=== PATIENT | female | born 1960 | race Caucasian/White ===

== ENCOUNTER 2017-08-11 13:17 | Inpatient (IN) | payer MEDICAID, SELFPAY ==
[2017-08-11] VITALS (7 sets, daily range): BP systolic 126–158; BP diastolic 72–142; PULSE 88–115; RESP 16–20; TEMP 35.6–36.9; O2SAT 92–93; BMI 20.7
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
[2017-08-11 13:41] LABS: Absolute Lymphocyte Count 2.29 X10^3/ul (0.83-4.51); Absolute Neutrophil Count 4.6 X10^3/uL (2.0-7.7); Basophil# 0.07 X10^3/uL; Basophil% 0.9 % (0-1); Eosinophil# 0.05 X10^3/uL; Eosinophils% 0.6 % (0-5); Hematocrit 37.6 % (37-47); Lymphocyte # 2.29 X10^3/ul (4.0); Lymphocyte % 28.1 % (19-41); Mean Corp Hgb Conc 34.6 g/gl (32-36); Mean Corpuscular Volume 86.6 fL (81-99); Mean Platelet Vol. 8.9 fl (6.2-12.0); Monocyte# 1.12 X10^3/uL; Monocyte% 13.8 % (0-10); Neutrophil # 4.59 X10^3/uL (2.7-7.7); Neutrophil % 56.4 % (47-70); Platelet Count 211 K/mm3 (150-450); RBC Distribution Width CV 13.6 % (11.6-14.6); RBC Distribution Width SD 42.5 fl (35.1-43.9); Red Blood Count 4.34 M/mm3 (4.2-5.4); White Blood Count 8.1 K/mm3 (4.4-11.0)
[2017-08-11 13:50] LABS: AST(SGOT) 144 U/L (15-37); Alanine Aminotransfer ALT/SGPT 62 U/L (13-56); Albumin, Serum 4.2 g/dL (3.2-5.0); Alkaline Phosphatase 98 U/L (45-117); Anion Gap 19 (5-15); BUN 16 mg/dL (7-18); Bilirubin, Direct 0.17 mg/dL (0.00-0.30); Calcium,Total 8.7 mg/dL (8.5-10.1); Chloride 95 mmol/L (98-107); EST Glomerular Filtration Rate 61 mL/min (>60); Est Glom Filt Rate - Afr Amer 74 mL/min (>60); Estimated Creatinine Clearance 54.89 ml/min; Globulin 4.5 g/dL (2.2-4.2); Glucose 59 mg/dL (70-110); Potassium 3.9 mmol/L (3.5-5.1); Protein, Total 8.7 g/dL (6.4-8.2); Sodium Level 135 mmol/L (136-145)
[2017-08-11 13:53] LABS: POSITIVE COUNT NO; POSITIVE DIFFERENTIAL NO; POSITIVE MORPHOLOGY NO
--- NOTE | 2017-08-11 14:09 | ED.RN ---
etoh [address] called from the lab. dr ball aware
--- NOTE | 2017-08-11 15:11 | ED.DEP ---
ED Disposition - Plan for ED Patient: Disposition: Home or Assisted Living Chief Complaint: ETOH Intox Instructions: ED Alcohol Intoxication Referrals: Kellie Delarosa DO [Primary Care Provider] - As Needed Additional Instructions: Plenty of fluids and rest. Need to strongly consider decreasing alcohol use and going through alcohol rehabilitation.
--- NOTE | 2017-08-11 18:11 | ED.RN ---
CONTINUES TO SLEEP. PT AMBULATED TO BATHROOM AND IS CURRENTLY SLEEPING.
--- NOTE | 2017-08-11 21:02 | HP.PCM_ITS ---
Problem List (1) ETOH abuse Status: Acute (2) Elevated ETOH level Status: Acute (3) Hepatotoxicity, secondary to ETOH Status: Acute History of Present Illness Date of Admission: 08/11/17 Chief Complaint: EtOH intoxication The patient is a 56 year old female w/ h/o EtOH abuse admitted for EtOH intoxication. She is a poor historian. She has been drinking for the past weeks. She spends most of her days drunk. She does not know why. She is tearful. She wants to stop drinking but cannot stop herself. Past Medical History Allergies Penicillins Allergy (Verified 06/08/17 19:00) Unknown Home Medications: Ambulatory Orders Medication Instructions Recorded Hydroxyzine HCl 50 mg PO BID PRN PRN 08/11/17 Smoking Status: Current every day smoker Review of Systems Constitutional: Denies: Chills, Fever, Weight Change HEENT: Denies: Head Aches, Sinus Congestion, Sinus Drainage Cardiovascular: Denies: Chest Pain, Palpitations Respiratory: Denies: Cough, Shortness of breath at rest, Sputum production Gastrointestinal: Denies: Abdominal Pain, Nausea, Vomiting Genitourinary: Denies: Dysuria Musculoskeletal: Denies: Joint Pain, Joint Tenderness Skin: Denies: Rash, Wounds Neurological: Denies: Numbness, Tingling, Focal weakness Psychiatric: Denies: Anxiety, Depression, Homicidal Ideations, Suicidal Ideations Hematologic/ Lymphatic: Denies: Easy Bruising, Easy Bleeding VTE Information - Inpt Only VTE Present on Admission: No VTE Mechan Device Prophylaxis: SCD's VTE Pharm Prophylaxis ordered?: Yes Patient Problems: Active and Suspected Problems ETOH abuse (Acute) Elevated ETOH level (Acute) Hepatotoxicity, secondary to ETOH (Acute) - Physical Exam General: Alert, Oriented x3, Cooperative HEENT: Atraumatic, PERRLA, EOMI, Normocephalic Neck: Supple, No JVD, Negative Carotid Bruits Lungs: Clear to auscultation, Normal air movement Cardiovascular: Regular rate, No murmurs Abdomen: Bowel Sounds Present, Soft, Non Tender Extremities: No edema, Capillary Refill Less than 3 Seconds Skin: No rashes, No breakdown Musculoskeletal: No Tenderness to Palpation of Joints or Extremities Neurological: Cranial nerves II-XII grossly intact Psych/Mental Status: Normal Affect, Appropriate Vital Signs Temp Pulse Resp BP Pulse Ox 96.0 F L 94 20 H 126/78 H 93 08/11/17 20:37 08/11/17 20:37 08/11/17 20:37 08/11/17 20:37 08/11/17 20:37 Oxygen Delivery Method Room Air Weight: 54.7 kg Body Mass Index (BMI) 20.7 Laboratory Tests Past 24 Hrs 08/11/17 08/11/17 08/11/17 13:20 13:20 13:20 WBC 8.1 RBC 4.34 Hgb 13.0 Hct 37.6 MCV 86.6 MCH 30.0 MCHC 34.6 RDW 13.6 RDW Differential 42.5 Plt Count 211 MPV 8.9 Immature Gran % (Auto) 0.200 Neut % (Auto) 56.4 Lymph % (Auto) 28.1 [place] % (Auto) 13.8 H Eos % (Auto) 0.6 Baso % (Auto) 0.9 Absolute Neuts (auto) 4.6 Absolute Lymphs (auto) 2.29 Total Counted Not Reportable Sodium 135 L Potassium 3.9 Chloride 95 L Carbon Dioxide 21.0 Anion Gap 19 H BUN 16 Creatinine 1.00 Estim Creat Clear Calc 54.89 Est GFR (MDRD) Af Amer 74 Est GFR (MDRD) Non-Af 61 BUN/Creatinine Ratio 16.0 Glucose 59 L Calcium 8.7 Total Bilirubin 0.40 Direct Bilirubin 0.17 AST 144 H ALT 62 H Alkaline Phosphatase 98 Total Protein 8.7 H Albumin 4.2 Globulin 4.5 H Ethyl Alcohol 414.0 H* Assessment/Plan Active and Suspected Problems ETOH abuse (Acute) Elevated ETOH level (Acute) Hepatotoxicity, secondary to ETOH (Acute) 56 year old female w/ h/o EtOH abuse admitted for EtOH intoxication. 1) EtOH abuse / intoxication: Will start CIWA. Will also start MVI. Will hydrate. Will consult [facility]. 2) Transaminitis: secondary to EtOH. Will repeat level in AM. Supportive care. 3) Hypovolemia: Most likely secondary to EtOH. Hydration. 4) Prophylaxis: Heparin.
[2017-08-11] MEDS: 0.9% Normal Saline 1,000 ML 999 ML IV ×2 (21:45→22:56)
[2017-08-11] MEDS: Ondansetron 4 MG/2 ML Vial IV (22:32)
[2017-08-11] MEDS: LORazepam 2 MG/ML Syringe IV (22:55)
[2017-08-11] MEDS: Ibuprofen 600 MG Tablet PO (23:04)
[2017-08-12] VITALS (14 sets, daily range): BP systolic 109–162; BP diastolic 61–99; PULSE 89–110; RESP 18–20; TEMP 36.7–37.5; O2SAT 92–99
[2017-08-12] MEDS: 0.9% Normal Saline 1,000 ML 125 ML IV ×3 (00:17→16:49)
--- NOTE | 2017-08-12 00:36 | NURSING ---
This nurse asking patient if her family knows she is in the hospital. Pt appears upset and wants to know why I am asking. Explained reasons for notifying family, and pt refuses at this time.
[2017-08-12 00:38] LABS: Amphetamine Urine VISTA NEGATIVE (<1000 ng/mL); Barbiturate Urine VISTA NEGATIVE (< 200 ng/mL); Benzodiazepine Urine VISTA NEGATIVE (< 200 ng/mL); Cocaine Urine VISTA NEGATIVE (< 300 ng/mL); Ecstacy Urine VISTA NEGATIVE (< 500 ng/mL); Methadone Urine VISTA NEGATIVE (< 300 ng/mL); PCP Urine VISTA NEGATIVE (< 25 ng/mL); THC Urine VISTA NEGATIVE (< 50 ng/mL); Vista UDS pH Range 5
[2017-08-12] MEDS: NYSTATIN 500,000 UNIT/5 ML UDC 500000 UNIT PO ×5 (02:44→20:21)
[2017-08-12] MEDS: LORazepam 1 MG Tablet 2 MG PO ×4 (02:47→20:21)
--- NOTE | 2017-08-12 07:00 | NURSING ---
Janee Andrews from [facility] was called 08/12/17 43 about consult for patient for ETOH detox. Janee Andrews said they would be in contact with patient.
[2017-08-12 07:14] LABS: Absolute Lymphocyte Count 2.39 X10^3/ul (0.83-4.51); Absolute Neutrophil Count 2.9 X10^3/uL (2.0-7.7); Basophil# 0.01 X10^3/uL; Basophil% 0.2 % (0-1); Eosinophil# 0.07 X10^3/uL; Eosinophils% 1.2 % (0-5); Hemoglobin 9.7 g/dl (12.0-15.0); Lymphocyte # 2.39 X10^3/ul (4.0); Mean Corp Hgb Conc 33.4 g/gl (32-36); Mean Corpuscular Hgb 29.4 pg (27.0-32.0); Mean Corpuscular Volume 87.9 fL (81-99); Mean Platelet Vol. 8.8 fl (6.2-12.0); Monocyte# 0.63 X10^3/uL; Monocyte% 10.6 % (0-10); Neutrophil # 2.86 X10^3/uL (2.7-7.7); Neutrophil % 47.8 % (47-70); Platelet Count 164 K/mm3 (150-450); RBC Distribution Width SD 45.2 fl (35.1-43.9)
[2017-08-12 07:16] LABS: POSITIVE COUNT NO; POSITIVE DIFFERENTIAL NO; POSITIVE MORPHOLOGY NO
[2017-08-12 07:38] LABS: ALB/GLOB Ratio 0.9 RATIO (0.9-2.4); AST(SGOT) 73 U/L (15-37); Alanine Aminotransfer ALT/SGPT 39 U/L (13-56); Albumin, Serum 2.9 g/dL (3.2-5.0); Alkaline Phosphatase 72 U/L (45-117); Anion Gap 12 (5-15); BUN 14 mg/dL (7-18); BUN/Creat Ratio 19.5 RATIO (10-20); Calcium,Total 7.4 mg/dL (8.5-10.1); Chloride 102 mmol/L (98-107); Creatinine, Serum 0.72 mg/dL (0.55-1.02); EST Glomerular Filtration Rate 89 mL/min (>60); Est Glom Filt Rate - Afr Amer 108 mL/min (>60); Estimated Creatinine Clearance 76.24 ml/min; Globulin 3.3 g/dL (2.2-4.2); Glucose 76 mg/dL (74-106); Magnesium 1.9 mg/dL (1.6-2.6); Potassium 4.2 mmol/L (3.5-5.1); Protein, Total 6.2 g/dL (6.4-8.2); Sodium Level 139 mmol/L (136-145)
[2017-08-12] MEDS: Folic Acid 1 MG Tablet PO (08:32)
[2017-08-12] MEDS: Ibuprofen 600 MG Tablet PO (08:32)
[2017-08-12] MEDS: Thiamine Hydrochloride 100 MG Tablet PO ×2 (08:32→16:51)
[2017-08-12] MEDS: Multivitamins,Ther W-Minerals Tablet 1 TABLET PO (08:33)
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
[2017-08-12] MEDS: 0.9% NaCl Peripheral Flush Adult/Peds IV ×2 (15:07→17:06)
[2017-08-12] MEDS: LORazepam 2 MG/ML Syringe IV (15:07)
[2017-08-12] MEDS: Ondansetron 4 MG/2 ML Vial IV (17:06)
[2017-08-13] VITALS (10 sets, daily range): BP systolic 124–166; BP diastolic 81–111; PULSE 74–118; RESP 12–20; TEMP 36.5–36.9; O2SAT 94–97
[2017-08-13] MEDS: LORazepam 1 MG Tablet 2 MG PO (00:06)
[2017-08-13] MEDS: Ibuprofen 600 MG Tablet PO ×2 (00:06→17:47)
[2017-08-13] MEDS: Mirtazapine 15 MG Tablet PO ×2 (01:41→23:55)
[2017-08-13] MEDS: Enoxaparin 40 MG/0.4 ML Syringe SC (05:24)
[2017-08-13 06:12] LABS: Hematocrit 32.5 % (37-47)
--- NOTE | 2017-08-13 08:58 | NURSING ---
Pt is sleeping. No distress. Room Camera and bed exit maintained.
[2017-08-13] MEDS: Folic Acid 1 MG Tablet PO (09:53)
[2017-08-13] MEDS: Multivitamins,Ther W-Minerals Tablet 1 TABLET PO (09:54)
[2017-08-13] MEDS: NYSTATIN 500,000 UNIT/5 ML UDC 500000 UNIT PO ×3 (09:54→23:55)
[2017-08-13] MEDS: Thiamine Hydrochloride 100 MG Tablet PO ×2 (09:54→17:39)
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
[2017-08-13] MEDS: LORazepam 2 MG/ML Syringe IV ×3 (12:58→20:21)
[2017-08-13] MEDS: Ondansetron 4 MG/2 ML Vial IV (12:59)
[2017-08-13] MEDS: 0.9% NaCl Peripheral Flush Adult/Peds IV ×3 (12:59→20:21)
--- NOTE | 2017-08-13 17:45 | NURSING ---
Pt is extremely anxious at this time. Crying. She asked to go see her daughter that is upstairs. This nurse told her it is not a good idea to go visit her right now. CIWA score is 20. BP is high as is HR. Will give Ativan.
[2017-08-14 06:19] VITALS: BP 124/86; PULSE 87; RESP 16; TEMP 36.6; O2SAT 92
[2017-08-14] MEDS: Ibuprofen 600 MG Tablet PO (06:25)
[2017-08-14] MEDS: Enoxaparin 40 MG/0.4 ML Syringe SC (06:26)
[2017-08-14] MEDS: LORazepam 1 MG Tablet 2 MG PO (06:32)
[2017-08-14 07:27] VITALS: O2SAT 96
[2017-08-14 08:16] VITALS: BP 158/100; PULSE 104; RESP 18; TEMP 36.7; O2SAT 96
[2017-08-14] MEDS: Multivitamins,Ther W-Minerals Tablet 1 TABLET PO (08:25)
[2017-08-14] MEDS: Folic Acid 1 MG Tablet PO (08:25)
[2017-08-14] MEDS: Thiamine Hydrochloride 100 MG Tablet PO (08:25)
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
--- NOTE | 2017-08-14 10:18 | CASEMGMT ---
Social Work Note According to Thomas CADENA Amy from [facility] saw and the pt is being established with inpatient rehab for alcohol abuse. No further needs identified. Will follow and assist as needed. Kirsten Narvaez, APPLIANCE ASSEMBLER, TOOL AND DIE MACHINIST
--- NOTE | 2017-08-14 10:33 | PCM.DC ---
- Discharge Diagnoses Current Active Problems: Current Active and Chronic Problems ETOH abuse (Acute) Elevated ETOH level (Acute) Hepatotoxicity, secondary to ETOH (Acute) You will use the following diet at home:: Regular Your food should be the consistency of: Regular Discharge Activity: Return to Normal Activity Weight Bearing Status: Weight bearing as tolerated Call your doctor if you observe: Fever of 101 or Higher, Shortness of breath, Dizziness, Fainting spells, Chest pain, Increased palpitations (irregular heartbeat), Uncontrolled pain Instructions: ED Alcohol Intoxication Allergies/Adverse Reactions: Allergies Penicillins Allergy (Verified 06/08/17 19:00) Unknown Medications to take at Discharge Hydroxyzine HCl 50 mg PO BID PRN PRN 08/11/17 Mirtazapine 15 mg PO QHS PRN 08/12/17 Folic Acid 0.4 mg PO DAILY@0800 #30 tab 08/14/17 Lorazepam [Ativan] 0.5 mg PO BID PRN PRN #20 tab 08/14/17 Multivitamins,Ther W-Minerals [Multivitamin With Minerals] 1 tab PO DAILYCM #30 tab 08/14/17 Thiamine Hydrochloride [Vitamin B1] 100 mg PO DAILY #30 tab 08/14/17 The following prescriptions were given: Folic Acid 0.4 mg PO DAILY@0800 #30 tab Lorazepam [Ativan] 0.5 mg PO BID PRN PRN #20 tab PRN Reason: Anxiety/Agitation Multivitamins,Ther W-Minerals [Multivitamin With Minerals] 1 tab PO DAILYCM #30 tab Thiamine Hydrochloride [Vitamin B1] 100 mg PO DAILY #30 tab Primary Care Physician: Kellie Delarosa DO [Primary Care Provider] - As Needed Please follow up with your Primary Care Physician in: 1 week.
[2017-08-14 10:34] VITALS: PULSE 104; RESP 18; TEMP 36.7; O2SAT 96
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
== END 2017-08-14 10:45 | disposition home or self-care (01) | DRG 435 ==
LOC: ED 20:46 → MS2 21:17
PROVIDERS: Internal Medicine; Admitting Provider Internal Medicine; Emergency Provider Emergency Medicine; Family Provider Family Medicine; PCP Family Medicine; Visit Provider Hospitalist
DX: F10.239 Alcohol dependence with withdrawal, unspecified (principal); F10.229 Alcohol dependence with intoxication, unspecified; K70.10 Alcoholic hepatitis without ascites; Y90.8 Blood alcohol level of 240 mg/100 ml or more; F17.210 Nicotine dependence, cigarettes, uncomplicated; Z86.718 Personal history of other venous thrombosis and embolism; S50.12XA Contusion of left forearm, initial encounter; X58.XXXA Exposure to other specified factors, initial encounter; Z23 Encounter for immunization
CPT/HCPCS: 36415; 80048; 80053; 80076; 80307; 80320; 83735; 85014; 85018; 85025; 99283; 99406; J7030; 90686; A4216; G0480; J2405

== ENCOUNTER 2018-01-18 13:52 | Emergency (ER) | payer MEDICAID, SELFPAY ==
[2018-01-18 13:54] VITALS: BP 142/83; PULSE 102; RESP 15; TEMP 36.4; O2SAT 98; BMI 23.8
--- NOTE | 2018-01-18 16:10 | ED.RN ---
PT LEFT WITHOUT BEING SEEN AND [facility]ISION IS AWARE
== END 2018-01-18 16:13 | disposition left against medical advice (07) ==
LOC: ED 16:12
PROVIDERS: Emergency Provider Emergency Medicine; Family Provider Family Medicine; PCP Family Medicine
DX: F10.239 Alcohol dependence with withdrawal, unspecified (principal)

== ENCOUNTER 2018-01-18 22:10 | Emergency (ER) | payer MEDICAID, SELFPAY ==
[2018-01-18 22:13] VITALS: BP 170/104; PULSE 102; RESP 20; TEMP 36.6; O2SAT 96; BMI 22.1
[2018-01-19 02:15] VITALS: RESP 12
[2018-01-19 04:25] VITALS: BP 106/59; PULSE 84; RESP 18; O2SAT 98
--- NOTE | 2018-01-19 05:10 | ED.VISSUMM ---
- ER Visit Summary Date of Service: 01/19/18 Chief Complaint: Alcohol intoxication History of Present Illness: The patient is a 57 F who was brought to the ER by police for alcohol intoxication. She is an alcoholic. She states she drank a liter of vodka prior to coming in here today. The son called stating that he cannot care for her in her current state and she could not stay with him. The patient was arrested for the same last night and was in longterm overnight. After leaving she began to drink again. She has no specific complaints at this time. Physical Examination: Heart rate 102 blood pressure 170/104 vitals otherwise unremarkable Patient does appear clinically intoxicated. She is oriented to self age and place No focal or lateralizing neurological deficits Heart is regular rhythm slightly tachycardic Lungs are clear Abdomen soft Test Results: Not indicated Emergency Department Course and Treatment: Patient was brought by police because they felt that she was too intoxicated for longterm at the time and needed monitoring. I do not believe any medical workup is necessary. Patient was observed here in the emergency department. On re-eval and she was able to walk unassisted. She will be discharged in police custody. Treatment Plan: [] Disposition: Discharge Impression: Alcohol intoxication This note was generated with [employer] dictation software. It may contain incorrect words, spelling, and punctuation that were not noted in review of the chart prior to signing ED Disposition - Plan for ED Patient: Chief Complaint: ETOH Intox Referrals: Kellie Delarosa DO [Primary Care Provider] -
--- NOTE | 2018-01-19 05:12 | ED.DEP ---
ED Disposition - Plan for ED Patient: Chief Complaint: ETOH Intox Instructions: ED Alcohol Intoxication Referrals: Kellie Delarosa DO [Primary Care Provider] -
--- NOTE | 2018-01-19 05:13 | ED.DCSUM_ITS ---
- ER Visit Summary Date of Service: 01/19/18 Chief Complaint: Alcohol intoxication History of Present Illness: The patient is a 57 F who was brought to the ER by police for alcohol intoxication. She is an alcoholic. She states she drank a liter of vodka prior to coming in here today. The son called stating that he cannot care for her in her current state and she could not stay with him. The patient was arrested for the same last night and was in shelter overnight. After leaving she began to drink again. She has no specific complaints at this time. Physical Examination: Heart rate 102 blood pressure 170/104 vitals otherwise unremarkable Patient does appear clinically intoxicated. She is oriented to self age and place No focal or lateralizing neurological deficits Heart is regular rhythm slightly tachycardic Lungs are clear Abdomen soft Test Results: Not indicated Emergency Department Course and Treatment: Patient was brought by police because they felt that she was too intoxicated for shelter at the time and needed monitoring. I do not believe any medical workup is necessary. Patient was observed here in the emergency department. On re-eval and she was able to walk unassisted. She will be discharged in police custody. Treatment Plan: [] Disposition: Discharge Impression: Alcohol intoxication This note was generated with [employer] dictation software. It may contain incorrect words, spelling, and punctuation that were not noted in review of the chart prior to signing ED Disposition - Plan for ED Patient: Chief Complaint: ETOH Intox Referrals: Kellie Delarosa DO [Primary Care Provider] -
[2018-01-19 05:15] VITALS: BP 125/81; PULSE 71; RESP 14; O2SAT 100
== END 2018-01-19 05:15 | disposition home or self-care (01) ==
LOC: ED 23:58
PROVIDERS: Emergency Provider Emergency Medicine; Family Provider Family Medicine; PCP Family Medicine
DX: F10.129 Alcohol abuse with intoxication, unspecified (principal); Z72.0 Tobacco use
CPT/HCPCS: 99282

== ENCOUNTER → 2018-04-30 09:54 | Outpatient (CLI) | payer MEDICAID, SELFPAY ==
--- NOTE | 2018-04-30 | BRBX_PTH ---
PATIENT: ANISA PABLO LOC: [facility] U#:[id number] AGE/SX: 64/F ROOM: RE04/30/[address]: Dr. Mary Miranda MD : 1960 BED: DIS: SPEC #: [id number] RECD: 04/30/18 13:53 STATUS: BEATRIZ RAMONE #: [id number] KOKI: 04/30/18 00:[address]: Mary Miranda DEPT: SURGICAL PATHOLOGY RECD BY: Trenton Richardson ENTERED: 04/30/18 13:54 SP TYPE: BREAST BX OTHR DR: Dr. Kellie Delarosa DO Tissues: Right breast, NOS Procedures: Surgery Specimen Level IV HEADER OPERATION: Right breast stereotactic biopsy PRE-OP DIAGNOSIS: Microcalcifications UOQ TISSUE SUBMITTED: Right breast ISCHEMIC TIME: 3 minutes FIXATION TIME: 8.5 hours MICROSCOPIC DIAGNOSIS Right breast, upper outer quadrant, stereotactic core biopsy: Fibrocystic changes, adenosis and intraductal hyperplasia with focal atypia. Frequent microcalcifications. Negative for malignancy. ROGELIO:darin 05/01/18 COMMENT Correlation with clinical, radiologic findings and appropriate follow up are necessary. Case has been reviewed in consultation with Dr. Singleton who concurs with the above diagnosis. IDC:AM MICROSCOPIC DESCRIPTION Slides are reviewed. GROSS DESCRIPTION Received in fixative is one container labeled with the patient's name and designated right breast. The specimen consists of multiple elongated fragments of medina-yellow fibroadipose tissue that in aggregate measure 5 x 3 x 0.8 cm. The entire specimen is submitted in four cassettes. / ROGELIO:darin 04/30/18 TC:5 CPT: 87200
--- NOTE | 2018-04-30 11:37 | PCM.OP.BLANK ---
Operative Report Date of Procedure: 04/30/18 Procedure: Stereotactic core biopsy Indications: 57 year-old female with cluster of microcalcifications in the lateral/central of the left breast. Risk benefits were discussed the patient and she elected to proceed with stereotactic core biopsy with clip placement Description of procedure: Patient was brought into the mammography suite and laid prone on the stereotactic table. A timeout was completed verifying correct patient, procedure, site, specially, prior to beginning procedure. The left breast was prepped and draped in usual sterile fashion and using local anesthesia was obtained with 1% lidocaine. Patient's left breast was positioned and placed into compression. Initial film showed calcifications are in the center of the compression paddle. 15? views were then taken. The calcifications were localized. The left breast was prepped draped in usual sterile fashion. An 8-gauge mammotome was set up according to the digital coordinates. The tract of the mammotome was anesthetized with local anesthesia and an incision was made with the 11 blade scalpel at the entry site. The mammotome was advanced to the prefire state. Pre-prior films were checked and verified. The mammotome was fired. Post fire films were also checked and verified. Biopsies were taken from 12:00 to 11:00. The specimen was x-rayed and almost all the calcifications were within the specimen. Mammotome clip was placed at the 12 o'clock position. The mammotome was removed from the breast. An additional films were taken which showed all calcifications were removed and a clip was in place. Pressure was held for hemostasis. Once hemostasis was assured the wound was dressed with Steri-Strips and OpSite. The patient tolerated the procedure well and was discharged from the mammography suite good condition. complications: none
== END ==
PROVIDERS: Family Provider Family Medicine; PCP Family Medicine; Visit Provider Surgery
DX: N60.11 Diffuse cystic mastopathy of right breast (principal); N60.21 Fibroadenosis of right breast; N60.91 Unspecified benign mammary dysplasia of right breast; F41.9 Anxiety disorder, unspecified; F32.9 Major depressive disorder, single episode, unspecified; J44.9 Chronic obstructive pulmonary disease, unspecified; F17.200 Nicotine dependence, unspecified, uncomplicated; Z79.899 Other long term (current) drug therapy
CPT/HCPCS: 19081; 88305; J7050; A4648

== ENCOUNTER 2018-06-18 11:51 | Day surgery (SDC) | payer MEDICAID, SELFPAY ==
[2018-06-06 09:01] VITALS: BMI 20.7
--- NOTE | 2018-06-18 | BRBX_PTH ---
PATIENT: ANISA PABLO LOC: [facility] [place] U#:[id number] AGE/SX: 57/F ROOM: RE06/18/[address]: Dr. Mary Miranda MD : 1960 BED: DIS: 06/18/2018 SPEC #: [id number] RECD: 06/18/18 14:52 STATUS: KIMBERLYMichael REThien #: [id number] KOKI: 06/18/18 00:[address]: Mary Miranda DEPT: SURGICAL PATHOLOGY RECD BY: Trenton Richardson ENTERED: 06/18/18 14:52 SP TYPE: BREAST BX OTHR DR: Dr. Kellie Delarosa, DO Tissues: Right breast, NOS Procedures: Surgery Specimen Level V HEADER OPERATION: Right breast NL with excisional biopsy PRE-OP DIAGNOSIS: Right breast ADH TISSUE SUBMITTED: Right breast biopsy, long suture - lateral, short suture - superior at 1431 MICROSCOPIC DIAGNOSIS Right breast, needle localization and excisional biopsy: Fibrocystic changes, adenosis and intraductal hyperplasia with focal atypia. Focal microcalcifications. Focal changes consistent with previous biopsy site. Negative for malignancy. ROGELIO:darin 06/21/18 COMMENT Please make reference to previous specimen ([id number]) right breast, upper outer quadrant, stereotactic core biopsy with diagnosis of fibrocystic changes, adenosis and intraductal hyperplasia with focal atypia. Case has been reviewed in consultation with Dr. Singleton who concurs with the above diagnosis. IDC:AM MICROSCOPIC DESCRIPTION Slides are reviewed. GROSS DESCRIPTION Received in fixative is one container labeled with the patient's name and designated right breast with needle localization. The specimen is oriented as long suture - lateral and short suture - superior. The specimen consists of a piece of fibroadipose tissue with needle localization measuring 4 x 3 x 2 cm. The specimen is inked as follows: anterior margin - yellow, posterior margin - black, superior margin - blue, inferior margin - green, medial margin - red and lateral margin - orange. Serial sections reveal medina-yellow adipose cut surfaces mixed with medina-white fibrous area. No obvious mass lesion is identified. The entire specimen is submitted from medial to lateral margins in nine cassettes. Sections will be submitted after additional fixation. / ROGELIO:darin 06/19/18 TC:5 CPT: 74464
--- NOTE | 2018-06-18 11:58 | BI_ITS ---
SURGICAL BREAST SPECIMEN RADIOGRAPH CLINICAL: Document presence of tissue clip marker in biopsy specimen. FINDINGS: Specimen shows presence of tissue clip marker. Electronically Signed: Marty Cam MD at 14:45 EST Tel [phone], Service support , BI/Breast Biopsy Specimen
[2018-06-18 12:25] VITALS: BP 163/78; PULSE 92; RESP 16; TEMP 37.4; O2SAT 97; BMI 24.4
[2018-06-18] MEDS: Bupiv/Epi 0.5% Mpf 30 ML Vial (14:43)
--- NOTE | 2018-06-18 14:45 | OP.PCM_ITS ---
Report of Operation Date of Procedure: 06/18/18 Pre-Operative Diagnosis: Right breast atypical ductal hyperplasia Post-Operative Diagnosis: Same Surgery/Procedure Performed:: Right breast needle localization in radiology, excisional breast biopsy in OR transport truck driver: Fabienne Hodge Type of Anesthesia:: General/Supplemental Anesthesiologist: Guicho White Special Medications: Clindamycin 600 mg IV x1 Specimen's removed: Right breast lumpectomy Estimated Blood Loss (mL): < 10 cc Fluids Replaced: 400 cc Description of Procedure: Patient was brought to the mammography suite. Patient was placed prone on the stereotactic table. The previously placed clip was localized. Suhail needle localization wire was used and placed after skin was prepped and draped in usual sterile fashion. Local anesthesia 1% lidocaine was used at the skin. Initial localization studies were taken at 15 degree angles. Confirmation of target confirmed. Wire was gently advanced as the needle was withdrawn. Again additional localization studies were taken. Patient also underwent 2 view mammography. Patient was brought to the operating room placed supine on the operating table. A timeout was completed verifying correct patient, site, procedure, special, prior to beginning procedure. Localization studies were reviewed. General anesthesia was induced. The right breast were prepped draped in usual sterile fashion. Curvilinear incision was made with a 15 blade scalpel overlying the wire. Electrocautery was used to dissect following the wire in order to include normal tissue and the clip as well. Hemostasis was achieved. The right breast lumpectomy was sent for x-ray. The wire and clip were confirmed. The cavity was irrigated with sterile water. The space was closed with the interrupted 3-0 Vicryl. The incision was closed with subdermal sutures of 3-0 Vicryl interrupted. The skin was closed with a running suture of 4-0 Monocryl. Steri-Strips were placed along with a gauze and OpSite. Gauze fluffs were also placed. Patient was extubated. Patient tolerated procedure well and was taken to the postanesthesia care unit in stable condition. - Complications none
--- NOTE | 2018-06-18 14:49 | DCINST_ITS ---
Discharge Diet: Light diet - advance as tolerated Discharge Activity: May not drive while taking narcotic pain medications. May shower in (days): 1 Lifting Restrictions: no lifting > 10 lb on right x 1 week Call your doctor if your incision/area has: Continuous Slow Oozing, Sudden Increased Bleeding, Increased Pain/ Swelling, Increased Redness, Foul Smelling Discharge, Swelling at the incision site Call your doctor if you observe: Fever of 101 or Higher Remove Dressing in (days):: 2 Allergies/Adverse Reactions: Allergies Penicillins Allergy (Verified 05/15/18 10:31) Unknown Medications to take at Discharge Hydroxyzine HCl 50 mg PO BID PRN PRN 08/11/17 Lorazepam [Ativan] 0.5 mg PO BID PRN PRN #20 tab 08/14/17 albuterol sulfate 2.5 mg/3 mL (0.083 %) solution for nebulization 2.5 mg INHALATION Q4H PRN 04/04/18 loratadine 10 mg tablet 10 mg PO DAILY 04/04/18 omeprazole 20 mg capsule,delayed release 20 mg PO BID cap 04/04/18 Hydrochlorothiazide 12.5 mg PO DAILY 06/15/18 Ibuprofen 600 mg PO 4X/DAY 06/15/18 Sucralfate [Carafate] 1 gm PO 4X/DAY 06/15/18 Oxycodone HCl/Acetaminophen [Percocet 5/325] 1 tablet PO Q6H PRN PRN 2 Days #5 tablet 06/18/18 The following prescriptions were given: Oxycodone HCl/Acetaminophen [Percocet 5/325] 1 tablet PO Q6H PRN PRN 2 Days #5 tablet PRN Reason: Pain Primary Care Physician: Kellie Delarosa DO [Primary Care Provider] - Test Results: Test results from this visit will be discussed in further detail at your follow- up appointment, if applicable. Please Follow Up With: Mary Miranda MD - After 5:00 and on weekends call [phone] with any concerns When: Call the office for f/u appt in 2wks. Will call &contact with path results Proposed Discharge Date: 06/18/18
[2018-06-18 14:59] VITALS: BP 139/86; BP 163/78; PULSE 96; RESP 18; TEMP 36.7; O2SAT 97
[2018-06-18 15:15] VITALS: BP 157/88; BP 163/78; PULSE 88; RESP 16; O2SAT 94
[2018-06-18 15:30] VITALS: BP 151/91; BP 163/78; PULSE 88; RESP 16; TEMP 36.8; O2SAT 93
[2018-06-18 16:21] VITALS: BP 163/78; BP 166/90; PULSE 96; RESP 16; TEMP 36.9; O2SAT 94
== END 2018-06-18 16:25 | disposition home or self-care (01) ==
LOC: SDC 11:53 → AC 11:54
PROVIDERS: Family Provider Family Medicine; PCP Family Medicine; Referring Provider Surgery; Visit Provider Surgery
PROC: (CPT 19301; principal; 2018-06-18 13:15)
DX: N60.11 Diffuse cystic mastopathy of right breast (principal); N60.21 Fibroadenosis of right breast; N60.91 Unspecified benign mammary dysplasia of right breast; K21.9 Gastro-esophageal reflux disease without esophagitis; F41.9 Anxiety disorder, unspecified; F32.9 Major depressive disorder, single episode, unspecified; I10 Essential (primary) hypertension; J44.9 Chronic obstructive pulmonary disease, unspecified; F17.200 Nicotine dependence, unspecified, uncomplicated; Z79.51 Long term (current) use of inhaled steroids; Z79.899 Other long term (current) drug therapy
CPT/HCPCS: 19125; 19281; 76098; 88305; 88307; J7120; J2405; J3490

== ENCOUNTER 2018-07-16 11:54 | Inpatient (IN) | payer MEDICAID, SELFPAY ==
[2018-07-16] VITALS (7 sets, daily range): BP systolic 142–162; BP diastolic 85–119; PULSE 100–162; RESP 14–21; TEMP 36.2–38.2; O2SAT 93–100; BMI 22.1; BMI 22.9; BMI 22.2
[2018-07-16 12:30] LABS: Absolute Lymphocyte Count 0.97 X10^3/ul (0.83-4.51); Absolute Neutrophil Count 9.6 X10^3/uL (2.0-7.7); Hematocrit 37.3 % (37-47); Hemoglobin 12.1 g/dl (12.0-15.0); Lymphocyte # 0.97 X10^3/ul (4.0); Lymphocyte % 8.5 % (19-41); Mean Corp Hgb Conc 32.4 g/gl (32-36); Mean Corpuscular Hgb 29.5 pg (27.0-32.0); Mean Platelet Vol. 9.2 fl (6.2-12.0); Monocyte# 0.78 X10^3/uL; Monocyte% 6.8 % (0-10); Neutrophil # 9.62 X10^3/uL (2.7-7.7); Neutrophil % 84.3 % (47-70); POSITIVE COUNT NO; POSITIVE DIFFERENTIAL NO; POSITIVE MORPHOLOGY NO; Platelet Count 277 K/mm3 (150-450); RBC Distribution Width CV 15.9 % (11.6-14.6); White Blood Count 11.4 K/mm3 (4.4-11.0)
[2018-07-16 12:42] LABS: Anion Gap 43 (5-15); BUN 38 mg/dL (7-18); BUN/Creat Ratio 13.6 RATIO (10-20); Calcium,Total 8.8 mg/dL (8.5-10.1); Chloride 79 mmol/L (98-107); Creatinine, Serum 2.79 mg/dL (0.55-1.02); EST Glomerular Filtration Rate 19 mL/min (>60); Est Glom Filt Rate - Afr Amer 23 mL/min (>60); Estimated Creatinine Clearance 19.44 ml/min; Glucose 135 mg/dL (74-106); Potassium 3.9 mmol/L (3.5-5.1); Sodium Level 132 mmol/L (136-145)
[2018-07-16] MEDS: Ondansetron 4 MG/2 ML Vial IV (13:08)
[2018-07-16] MEDS: 0.9% Normal Saline 1,000 ML 999 ML IV ×2 (13:08→13:47)
[2018-07-16 13:38] LABS: Lipase 298 U/L (73-393)
[2018-07-16 13:52] LABS: Alcohol, Blood (Medical)-Serum < 3.0 mg/dL
[2018-07-16 13:55] LABS: AST(SGOT) 138 U/L (15-37); Alanine Aminotransfer ALT/SGPT 136 U/L (13-56); Albumin, Serum 4.5 g/dL (3.2-5.0); Alkaline Phosphatase 92 U/L (45-117); Bilirubin, Direct 0.32 mg/dL (0.00-0.30); Protein, Total 8.5 g/dL (6.4-8.2)
--- NOTE | 2018-07-16 14:39 | ED.VISSUMM ---
- ER Visit Summary Date of Service: 07/16/18 Chief Complaint: Dehydrated History of Present Illness: The patient is a 57 F with complaints of dehydration. The patient has been unable to drink anything since yesterday. She has had nausea and vomiting. She normally drinks alcohol, 1/5 a day. Her last use was yesterday at 3 PM. She has had nausea and vomiting since then. She also has a history of COPD, bipolar disorder, depression, anxiety. Patient denies abdominal pain, chest pain, shortness of breath. Denies fevers. Denies urinary symptoms. Physical Examination: Hypertensive, tachycardic and tachypneic. Afebrile. Alert and oriented. Appears uncomfortable. No acute distress. Dry mucous membranes. Heart tachycardic but regular. Lungs clear. Abdomen soft and nontender. Skin is dry. Test Results: White count 11.4. Sodium 132, chloride 79, CO2 10, anion gap 43, glucose 135, BUN 38, creatinine 2.79. ALT 136, AST 138, lipase normal. Lactate pending. Ketones moderate. ABG pending. Alcohol negative. Emergency Department Course and Treatment: Patient was treated with IV fluids and Zofran. She had continued nausea. Patient has acute kidney injury. She is acidotic. I suspect alcoholic ketoacidosis. Glucose normal. Lactate and ABG pending. Patient has no abdominal pain, imaging was not performed. No symptoms of sepsis. No white count or fever. Patient will need continued fluids and pain and nausea control. Discussed with the hospitalist for mission. Treatment Plan: As above Disposition: Admission Impression: 1. Alcohol ketoacidosis 2. Acute kidney injury This note was generated with [employer] dictation software. It may contain incorrect words, spelling, and punctuation that were not noted in review of the chart prior to signing ED Disposition - Plan for ED Patient: Chief Complaint: Nausea/Vomiting Referrals: Kellie Delarosa DO [Primary Care Provider] -
--- NOTE | 2018-07-16 14:43 | ED.DCSUM_ITS ---
- ER Visit Summary Date of Service: 07/16/18 Chief Complaint: Dehydrated History of Present Illness: The patient is a 57 F with complaints of dehydration. The patient has been unable to drink anything since yesterday. She has had nausea and vomiting. She normally drinks alcohol, 1/5 a day. Her last use was yesterday at 3 PM. She has had nausea and vomiting since then. She also has a history of COPD, bipolar disorder, depression, anxiety. Patient denies abdominal pain, chest pain, shortness of breath. Denies fevers. Denies urinary symptoms. Physical Examination: Hypertensive, tachycardic and tachypneic. Afebrile. Alert and oriented. Appears uncomfortable. No acute distress. Dry mucous membranes. Heart tachycardic but regular. Lungs clear. Abdomen soft and nontender. Skin is dry. Test Results: White count 11.4. Sodium 132, chloride 79, CO2 10, anion gap 43, glucose 135, BUN 38, creatinine 2.79. ALT 136, AST 138, lipase normal. Lactate pending. Ketones moderate. ABG pending. Alcohol negative. Emergency Department Course and Treatment: Patient was treated with IV fluids and Zofran. She had continued nausea. Patient has acute kidney injury. She is acidotic. I suspect alcoholic ke toacidosis. Glucose normal. Lactate and ABG pending. Patient has no abdominal pain, imaging was not performed. No symptoms of sepsis. No white count or fever. Patient will need continued fluids and pain and nausea control. Discussed with the hospitalist for mission. Treatment Plan: As above Disposition: Admission Impression: 1. Alcohol ketoacidosis 2. Acute kidney injury This note was generated with EDAN dictation software. It may contain incorrect words, spelling, and punctuation that were not noted in review of the chart prior to signing ED Disposition - Plan for ED Patient: Chief Complaint: Nausea/Vomiting Referrals: Kellie Delarosa DO [Primary Care Provider] -
--- NOTE | 2018-07-16 15:09 | PCM.HP.STD ---
Problem List (1) YADIRA (acute kidney injury) Status: Acute (2) Alcohol withdrawal delirium, acute, hyperactive Status: Acute History of Present Illness Date of Admission: 07/16/18 Chief Complaint: nausea vomiting. The patient is a 57 year old F presents with 3-day history of intractable nausea and vomiting. Patient also complains of diffuse myalgias. Patient has been undergoing a alcohol diaz, drinking 1/5 of hard alcohol per day. Patient's last drink was yesterday. Her last drink was due to the fact that she simply ran out of alcohol. Patient also has been having tremors anxiety is through the roof. Patient does endorse that she drinks alcohol to help her cope with anxiety. Patient's daughter from a ago and her mother a couple years ago and she states that she is been having trouble coping with these events. Patient has been in and out of counseling with little relief of her anxiety. Patient does take Vistaril to help her with her anxiety but she states that it is of little benefit for her. Patient significant other is present and states that when she is intoxicated she does talk to people that are not there not so much when she is not intoxicated. [] Past Medical History Medical History: Medical History (Last Reviewed 07/16/18 @ 15:12 by Tio Conley DO) Hepatotoxicity, secondary to ETOH (Acute) K70.9 Elevated ETOH level (Acute) R78.0 ETOH abuse (Acute) F10.10 Abnormal mammogram R92.8 Anxiety F41.9 Bipolar 1 disorder F31.9 COPD (chronic obstructive pulmonary disease) J44.9 History of hysterectomy Z90.710 Insomnia G47.00 Allergies Penicillins Allergy (Verified 07/16/18 11:54) Unknown Home Medications: Ambulatory Orders Medication Instructions Recorded Hydroxyzine HCl 50 mg PO BID PRN PRN 08/11/17 Lorazepam [Ativan] 0.5 mg PO BID PRN PRN #20 tab 08/14/17 albuterol sulfate 2.5 mg/3 mL 2.5 mg INHALATION Q4H PRN 04/04/18 (0.083 %) solution for nebulization loratadine 10 mg tablet 10 mg PO DAILY 04/04/18 omeprazole 20 mg capsule,delayed 20 mg PO BID cap 04/04/18 release Hydrochlorothiazide 12.5 mg PO DAILY 06/15/18 Ibuprofen 600 mg PO 4X/DAY 06/15/18 Sucralfate [Carafate] 1 gm PO 4X/DAY 06/15/18 Fluticasone/Vilanterol [Breo 1 puff INHALATION DAILY 07/16/18 Ellipta 100-25 Mcg INH] Ibuprofen [Ibu-200] 400 mg PO PRN PRN 07/16/18 Surgical History: Surgical History (Last Reviewed 07/16/18 @ 15:12 by Tio Conley DO) History of Z98.891 Smoking Status: Heavy Smoker (>10/day) Tobacco Use: Cigarettes Alcohol: Heavy Drugs: None - *Family History Maternal Family History: Family History (Last Reviewed 07/16/18 @ 15:12 by Tio Conley DO) Mother Hypertension Thyroid disorder CVA (cerebral vascular accident) Sister Heart disease Review of Systems Constitutional: Reports: Anorexia, Chills. Denies: Fever Eyes: Reports: Blurred vision. Denies: Double vision HEENT: Reports: Head Aches. Denies: Sinus Congestion, Sinus Drainage Cardiovascular: Reports: Light Headedness. Denies: Chest Pain Respiratory: Reports: Cough. Denies: Shortness of Breath Gastrointestinal: Reports: Abdominal Pain, Nausea, Vomiting Genitourinary: Reports: Incontinence. Denies: Dysuria Musculoskeletal: Reports: Arm Pain, Back Pain, Leg Pain Skin: Denies: Dryness, Jaundice, Lesions Neurological: Reports: Blurred vision. Denies: Balance problems, Double vision, Change in Speech Psychiatric: Reports: Anxiety, Depression Endocrine: Reports: Heat/ Cold Intolerance. Denies: Change in Body Habitus Hematologic/ Lymphatic: Denies: Easy Bruising, Easy Bleeding, Hx of blood clot Comment: A 10 point review of systems were negative except as mentioned in the history of present illness and the other review of systems. VTE Information - Inpt Only VTE Present on Admission: No VTE Pharm Prophylaxis ordered?: Yes Patient Problems: Active and Suspected Problems (Last Reviewed 05/15/18 @ 10:31 by Enedina Maldonado) YADIRA (acute kidney injury) (Acute) Alcohol withdrawal delirium, acute, hyperactive (Acute) - Physical Exam General: Alert, No apparent distress, - - Appears older than stated age. Afebrile. HEENT: Atraumatic, PERRLA, EOMI, Normocephalic Oral: Moist Mucosa, No Gingival or Mucosal Lesions/ Ulcerations Neck: No Nodes, Thyroid Normal Size and Texture Lungs: Clear to auscultation, Normal air movement, No rhonchi, No wheeze Cardiovascular: Regular rate, Regular Rhythm, Normal S1, Normal S2, No murmurs Abdomen: Bowel Sounds Present, Soft, Non Tender, Non-Distended, No Hepato-splenomegaly Extremities: No edema Skin: No rashes, No breakdown Musculoskeletal: No Tenderness to Palpation of Joints or Extremities, No Muscle Wasting Neurological: Motor Exam 5/5 strength throughout, - - No clonus. Slight tremors of the upper extremities, left greater than right Psych/Mental Status: Agitated, Anxious Vital Signs Temp Pulse Resp BP Pulse Ox 36.2 C L 106 H 15 146/85 H 98 07/16/18 11:55 07/16/18 14:51 07/16/18 14:51 07/16/18 14:51 07/16/18 14:51 Oxygen Delivery Method Room Air Weight: 58.6 kg Body Mass Index (BMI) 22.1 Laboratory Tests Past 24 Hrs 07/16/18 07/16/18 07/16/18 12:25 12:25 12:25 WBC 11.4 H RBC 4.10 L Hgb 12.1 Hct 37.3 MCV 91.0 MCH 29.5 MCHC 32.4 RDW 15.9 H RDW Differential 53.0 H Plt Count 277 MPV 9.2 Immature Gran % (Auto) 0.400 Neut % (Auto) 84.3 H Lymph % (Auto) 8.5 L [place] % (Auto) 6.8 Eos % (Auto) 0.0 Baso % (Auto) 0.0 Absolute Neuts (auto) 9.6 H Absolute Lymphs (auto) 0.97 Total Counted Not Reportable Sodium 132 L Potassium 3.9 Chloride 79 L Carbon Dioxide 10.0 L Anion Gap 43 H BUN 38 H Creatinine 2.79 H Estim Creat Clear Calc 19.44 Est GFR (MDRD) Af Amer 23 L Est GFR (MDRD) Non-Af 19 L BUN/Creatinine Ratio 13.6 Glucose 135 H Lactic Acid Calcium 8.8 Total Bilirubin 0.90 Direct Bilirubin 0.32 H AST 138 H ALT 136 H Alkaline Phosphatase 92 Total Protein 8.5 H Albumin 4.5 Globulin 4.0 Lipase Ethyl Alcohol Acetone Level 07/16/18 07/16/18 07/16/18 13:08 13:08 14:58 WBC RBC Hgb Hct MCV MCH MCHC RDW RDW Differential Plt Count MPV Immature Gran % (Auto) Neut % (Auto) Lymph % (Auto) [place] % (Auto) Eos % (Auto) Baso % (Auto) Absolute Neuts (auto) Absolute Lymphs (auto) Total Counted Sodium Potassium Chloride Carbon Dioxide Anion Gap BUN Creatinine Estim Creat Clear Calc Est GFR (MDRD) Af Amer Est GFR (MDRD) Non-Af BUN/Creatinine Ratio Glucose Lactic Acid Pending Calcium Total Bilirubin Direct Bilirubin AST ALT Alkaline Phosphatase Total Protein Albumin Globulin Lipase 298 Ethyl Alcohol < 3.0 Acetone Level MODERATE H Assessment/Plan All Active Problems (Last Reviewed 05/15/18 @ 10:31 by Enedina Maldonado) YADIRA (acute kidney injury) (Acute) Alcohol withdrawal delirium, acute, hyperactive (Acute) Hepatotoxicity, secondary to ETOH (Acute) Elevated ETOH level (Acute) ETOH abuse (Acute) 1. Acute kidney injury Suspected prerenal plus minus ATN IV fluids Urine studies 2. Acute alcohol withdrawal Last drink was roughly 24 hours ago CIWA is 21. Initially informed patient nursing and the other that I would not schedule Ativan, but after getting her score, I will put her on Ativan taper plus as needed Thiamine and folate Talked the patient about seeking proper psychological help as patient does endorse that she drinks to self medicate her anxiety and depression [facility] evaluation 3. Alcoholic ketoacidosis Will give dextrose containing fluids, however will need to get patient IV thiamine first. Check magnesium and phosphorus levels 4. Anxiety/Depression complicating care needs counseling and/or medications 5. DVT prophylaxis with subcu heparin Code Visit Inpatient E&M: 19629 Init Hosp L3
[2018-07-16 15:18] LABS: Bacteria 0 SEEN /hpf (None Seen); Mucous, Urine 0 SEEN /hpf (<or=2+); Red Blood Cells-Urine 0 SEEN /hpf (0-5); Squamous Epithelial Cells - UA 0 SEEN /hpf (5-10); White Blood Cells 0 SEEN /hpf (0-5)
[2018-07-16 15:21] LABS: Base Excess -16 mmol/L (-2 to +2); Bicarbonate 10.6 mmol/L (22-26); Blood Gas Specimen Type ART; O2 Delivery Device Room Air; PO2 85 mmHG (75-100); SO2 96 % (95-99); Time Given 1500; Total Carbon Dioxide 11 mmol/L; pCO2 21.2 mmHg (35-45); pH 7.31 (7.35-7.45)
[2018-07-16 15:29] LABS: Color, Urine Yellow (Yellow); Glucose, Dipstick Normal (Normal); Leukocyte Esterase-Dipstick Negative /ul (Negative); Nitrite-Dipstick Negative (Negative); Occult Blood-Urine 50 /ul (Negative); Protein-Dipstick 30 mg/dl (Negative); Urine Bilirubin Dipstick Negative (Negative); Urine Clarity Clear (Clear); Urine Urobilinogen Normal (Normal)
[2018-07-16 15:46] LABS: Ketone-Dipstick 150 mg/dl (Negative)
--- NOTE | 2018-07-16 15:46 | EKG12_ITS ---
Test Reason : SOB Blood Pressure : / mmHG Vent. Rate : 104 BPM Atrial Rate : 104 BPM P-R Int : 164 ms QRS Dur : 082 ms QT Int : 312 ms P-R-T Axes : 073 084 091 degrees QTc Int : 410 ms Sinus tachycardia Nonspecific T wave abnormality Abnormal ECG Confirmed by PATRICE NARVAEZ, IVETT ([id number]), science editor JAGDISH ZELAYA ([id number] on 07/18/2018 2:36:41 PM Referred By: CLARIBEL Confirmed By:IVETT IBRAHIM MD
--- NOTE | 2018-07-16 15:48 | ED.RN ---
DR WATKINS AND DR PETTIT NOTIFIED OF ELEVATED BP AND HR- X1 ATIVAN ORDER RECEIVED AND ORDER FOR EKG RECEIVED. DR PETTIT NOTIFIED OF URINE KETONES OF 150- NNO
[2018-07-16] MEDS: LORazepam 2 MG/ML Syringe 1 MG IV (15:54)
[2018-07-16 16:04] LABS: Magnesium 1.8 mg/dL (1.6-2.6); Phosphorus 6.6 mg/dL (2.5-4.9)
[2018-07-16 16:13] LABS: Lactic Acid 2.3 mmol/L (0.4-2.0)
--- NOTE | 2018-07-16 16:15 | ED.RN ---
LAB CALLED CRITICAL RESULT ON THIS PT, LACTIC ACID OF 2.3, THIS NURSE TOLD THE NURSE OF THIS PT AND FOUND SHE WAS ALREADY SENT TO FLOOR, MED SURG 3 NURSE CALLED AND GIVEN RESULT OF LACTIC ACID ON THIS PT
[2018-07-16] MEDS: Dext 5%-0.45% NS 1,000 ML 150 ML IV (16:30)
[2018-07-16] MEDS: Sucralfate 1 GM Tablet PO ×2 (16:58→22:07)
[2018-07-16] MEDS: LORazepam 1 MG Tablet PO ×2 (16:58→20:13)
[2018-07-16 18:59] LABS: Reflex Lactate? Y
[2018-07-16 19:40] LABS: Urea Nitrogen, Urine 222 mg/dL (NO RANGE EST.)
[2018-07-16 20:08] LABS: Lactic Acid 0.9 mmol/L (0.4-2.0)
[2018-07-16] MEDS: Heparin Injection (Vial) 5,000 UNIT/ML VIAL 5000 UNIT SC (22:07)
[2018-07-16] MEDS: Pantoprazole Sodium 20 MG Tablet PO (22:07)
[2018-07-17] VITALS (8 sets, daily range): BP systolic 131–161; BP diastolic 74–103; PULSE 93–99; RESP 16–18; TEMP 36.5–37.4; O2SAT 93–100
[2018-07-17] MEDS: Dext 5%-0.45% NS 1,000 ML 150 ML IV (00:01)
[2018-07-17] MEDS: LORazepam 1 MG Tablet PO ×6 (00:05→23:42)
[2018-07-17] MEDS: Albuterol 2.5 MG/3 ML VIAL.NEB. INHALATION (04:31)
[2018-07-17] MEDS: Sucralfate 1 GM Tablet PO ×3 (06:00→21:13)
[2018-07-17 06:45] LABS: Anion Gap 12 (5-15); BUN 17 mg/dL (7-18); BUN/Creat Ratio 12.8 RATIO (10-20); Calcium,Total 7.5 mg/dL (8.5-10.1); Chloride 100 mmol/L (98-107); Creatinine, Serum 1.33 mg/dL (0.55-1.02); EST Glomerular Filtration Rate 44 mL/min (>60); Est Glom Filt Rate - Afr Amer 53 mL/min (>60); Estimated Creatinine Clearance 40.79 ml/min; Glucose 163 mg/dL (74-106); Sodium Level 137 mmol/L (136-145)
[2018-07-17 06:50] LABS: Absolute Lymphocyte Count 1.65 X10^3/ul (0.83-4.51); Absolute Neutrophil Count 5.7 X10^3/uL (2.0-7.7); Eosinophil# 0.08 X10^3/uL; Hematocrit 28.3 % (37-47); Hemoglobin 9.4 g/dl (12.0-15.0); Lymphocyte # 1.65 X10^3/ul (4.0); Lymphocyte % 20.1 % (19-41); Mean Corp Hgb Conc 33.2 g/gl (32-36); Mean Corpuscular Hgb 29.9 pg (27.0-32.0); Mean Corpuscular Volume 90.1 fL (81-99); Mean Platelet Vol. 9.5 fl (6.2-12.0); Monocyte# 0.74 X10^3/uL; Neutrophil # 5.74 X10^3/uL (2.7-7.7); Neutrophil % 69.8 % (47-70); Platelet Count 194 K/mm3 (150-450); RBC Distribution Width SD 48.2 fl (35.1-43.9); Red Blood Count 3.14 M/mm3 (4.2-5.4); White Blood Count 8.2 K/mm3 (4.4-11.0)
[2018-07-17 06:52] LABS: POSITIVE COUNT NO; POSITIVE DIFFERENTIAL NO; POSITIVE MORPHOLOGY NO
[2018-07-17] MEDS: Multivitamins,Therapeutic Tablet 1 TABLET PO (09:36)
[2018-07-17] MEDS: Loratadine 10 MG Tablet PO (09:36)
[2018-07-17] MEDS: Folic Acid 1 MG Tablet PO (09:36)
[2018-07-17] MEDS: Thiamine Hydrochloride 100 MG Tablet PO (09:36)
[2018-07-17] MEDS: Pantoprazole Sodium 20 MG Tablet PO ×2 (09:37→21:13)
[2018-07-17] MEDS: Heparin Injection (Vial) 5,000 UNIT/ML VIAL 5000 UNIT SC ×2 (09:37→21:13)
--- NOTE | 2018-07-17 13:44 | PN_ITS ---
<Kirsten Clifton - Last Filed: 07/17/18 13:47> Patient Problems: Active and Suspected Problems (Last Reviewed 07/16/18 @ 15:12 by Tio Conley DO) YADIRA (acute kidney injury) (Acute) Alcohol withdrawal delirium, acute, hyperactive (Acute) Subjective: Patient seen and examined. Nausea, vomiting improved. States she does not feel well but denies specific complaints. Request outpatient resources for grief counseling and alcohol dependence. Patient states she had previously quit drinking. However, she states her mother and daughter both and she is having trouble coping with these losses. - Physical Exam General: Alert, Oriented x3, Cooperative, No apparent distress HEENT: Atraumatic, PERRLA, EOMI, Normocephalic Neck: Supple, No JVD, Negative Carotid Bruits Lungs: Clear to auscultation, Normal air movement Cardiovascular: Regular rate, Regular Rhythm, Normal S1, Normal S2, No murmurs Abdomen: Bowel Sounds Present, Soft, Non Tender, Non-Distended Extremities: No clubbing, No cyanosis, No edema, Capillary Refill Less than 3 Seconds Skin: No rashes, No breakdown Musculoskeletal: No Tenderness to Palpation of Joints or Extremities Neurological: Cranial nerves II-XII grossly intact, Neuro grossly intact Psych/Mental Status: Flat Affect Vital Signs Temp Pulse Resp BP Pulse Ox 98.7 F 95 18 137/85 H 96 07/17/18 09:25 07/17/18 09:25 07/17/18 09:25 07/17/18 09:25 07/17/18 09:25 Oxygen Delivery Method Room Air Weight: 133 lb 9.602 oz Body Mass Index (BMI) 22.9 Intake and Output for Last 24 Hours 07/15/18 07/16/18 07/17/18 23:59 23:59 23:59 Intake Total 270 / 270 3099 / 3099 Output Total 400 / 400 Balance 270 / 270 2699 / 2699 Laboratory Tests Past 24 Hrs 07/16/18 07/16/18 07/16/18 12:25 12:25 13:08 WBC RBC Hgb Hct MCV MCH MCHC RDW RDW Differential Plt Count MPV Immature Gran % (Auto) Neut % (Auto) Lymph % (Auto) [place] % (Auto) Eos % (Auto) Baso % (Auto) Absolute Neuts (auto) Absolute Lymphs (auto) Total Counted Eos Smear Total Cells Specimen Type pH Bicarbonate Actual POC Total CO2 Base Excess O2 Saturation ABG pCO2 ABG pO2 Rhys Test O2 Delivery Device Blood Gas Notified Whom Blood Gas Notified Time Sodium Potassium Chloride Carbon Dioxide Anion Gap BUN Creatinine Estim Creat Clear Calc Est GFR (MDRD) Af Amer Est GFR (MDRD) Non-Af BUN/Creatinine Ratio Glucose Lactic Acid Calcium Phosphorus 6.6 H Magnesium 1.8 Total Bilirubin 0.90 Direct Bilirubin 0.32 H AST 138 H ALT 136 H Alkaline Phosphatase 92 Total Protein 8.5 H Albumin 4.5 Globulin 4.0 Lipase 298 Urine Color Urine Clarity Urine pH Ur Specific Price U Specif Grav (Refrac) Urine Protein Urine Glucose (UA) Urine Ketones Urine Occult Blood Urine Nitrite Urine Bilirubin Urine Urobilinogen Ur Leukocyte Esterase Urine RBC Urine WBC Ur Squamous Epith Cells Ur Transition Epith Cell Ur Renal Epithelial Cell Calcium Oxalate Crystal Uric Acid Crystals Triple Phos Crystals Other Crystals Amorphous Sediment Urine Bacteria Hyaline Casts Fine Granular Casts Coarse Granular Casts Waxy Casts RBC Casts WBC Casts Urine Mucus Urine Trichomonas Urine Yeast Urine Creatinine Urine Urea Nitrogen Ethyl Alcohol Acetone Level 07/16/18 07/16/18 07/16/18 13:08 14:58 15:15 WBC RBC Hgb Hct MCV MCH MCHC RDW RDW Differential Plt Count MPV Immature Gran % (Auto) Neut % (Auto) Lymph % (Auto) [place] % (Auto) Eos % (Auto) Baso % (Auto) Absolute Neuts (auto) Absolute Lymphs (auto) Total Counted Eos Smear Total Cells Specimen Type pH Bicarbonate Actual POC Total CO2 Base Excess O2 Saturation ABG pCO2 ABG pO2 Rhys Test O2 Delivery Device Blood Gas Notified Whom Blood Gas Notified Time Sodium Potassium Chloride Carbon Dioxide Anion Gap BUN Creatinine Estim Creat Clear Calc Est GFR (MDRD) Af Amer Est GFR (MDRD) Non-Af BUN/Creatinine Ratio Glucose Lactic Acid 2.3 H Calcium Phosphorus Magnesium Total Bilirubin Direct Bilirubin AST ALT Alkaline Phosphatase Total Protein Albumin Globulin Lipase Urine Color Yellow Urine Clarity Clear Urine pH 6.0 Ur Specific Price 1.010 U Specif Grav (Refrac) Urine Protein 30 H Urine Glucose (UA) Normal Urine Ketones 150 H Urine Occult Blood 50 H Urine Nitrite Negative Urine Bilirubin Negative Urine Urobilinogen Normal Ur Leukocyte Esterase Negative Urine RBC 0 SEEN Urine WBC 0 SEEN Ur Squamous Epith Cells 0 SEEN Ur Transition Epith Cell Ur Renal Epithelial Cell Calcium Oxalate Crystal Uric Acid Crystals Triple Phos Crystals Other Crystals Amorphous Sediment Urine Bacteria 0 SEEN Hyaline Casts Fine Granular Casts Coarse Granular Casts Waxy Casts RBC Casts WBC Casts Urine Mucus 0 SEEN Urine Trichomonas Urine Yeast Urine Creatinine Urine Urea Nitrogen Ethyl Alcohol < 3.0 Acetone Level MODERATE H 07/16/18 07/16/18 07/16/18 15:17 16:20 16:20 WBC RBC Hgb Hct MCV MCH MCHC RDW RDW Differential Plt Count MPV Immature Gran % (Auto) Neut % (Auto) Lymph % (Auto) [place] % (Auto) Eos % (Auto) Baso % (Auto) Absolute Neuts (auto) Absolute Lymphs (auto) Total Counted Eos Smear Total Cells Pending Specimen Type ART pH 7.31 L Bicarbonate Actual 10.6 L POC Total CO2 11 Base Excess -16 L O2 Saturation 96 ABG pCO2 21.2 L ABG pO2 85 Rhys Test NA O2 Delivery Device Room Air Blood Gas Notified Whom ED Blood Gas Notified Time 1500 Sodium Potassium Chloride Carbon Dioxide Anion Gap BUN Creatinine Estim Creat Clear Calc Est GFR (MDRD) Af Amer Est GFR (MDRD) Non-Af BUN/Creatinine Ratio Glucose Lactic Acid Calcium Phosphorus Magnesium Total Bilirubin Direct Bilirubin AST ALT Alkaline Phosphatase Total Protein Albumin Globulin Lipase Urine Color Urine Clarity Urine pH Ur Specific Price U Specif Grav (Refrac) Urine Protein Urine Glucose (UA) Urine Ketones Urine Occult Blood Urine Nitrite Urine Bilirubin Urine Urobilinogen Ur Leukocyte Esterase Urine RBC Urine WBC Ur Squamous Epith Cells Ur Transition Epith Cell Ur Renal Epithelial Cell Calcium Oxalate Crystal Uric Acid Crystals Triple Phos Crystals Other Crystals Amorphous Sediment Urine Bacteria Hyaline Casts Fine Granular Casts Coarse Granular Casts Waxy Casts RBC Casts WBC Casts Urine Mucus Urine Trichomonas Urine Yeast Urine Creatinine 17.40 Urine Urea Nitrogen Ethyl Alcohol Acetone Level 07/16/18 07/16/18 07/16/18 16:20 16:20 19:26 WBC RBC Hgb Hct MCV MCH MCHC RDW RDW Differential Plt Count MPV Immature Gran % (Auto) Neut % (Auto) Lymph % (Auto) [place] % (Auto) Eos % (Auto) Baso % (Auto) Absolute Neuts (auto) Absolute Lymphs (auto) Total Counted Eos Smear Total Cells Specimen Type pH Bicarbonate Actual POC Total CO2 Base Excess O2 Saturation ABG pCO2 ABG pO2 Rhys Test O2 Delivery Device Blood Gas Notified Whom Blood Gas Notified Time Sodium Potassium Chloride Carbon Dioxide Anion Gap BUN Creatinine Estim Creat Clear Calc Est GFR (MDRD) Af Amer Est GFR (MDRD) Non-Af BUN/Creatinine Ratio Glucose Lactic Acid 0.9 Calcium Phosphorus Magnesium Total Bilirubin Direct Bilirubin AST ALT Alkaline Phosphatase Total Protein Albumin Globulin Lipase Urine Color Cancelled Urine Clarity Cancelled Urine pH Cancelled Ur Specific Price Cancelled U Specif Grav (Refrac) Cancelled Urine Protein Cancelled Urine Glucose (UA) Cancelled Urine Ketones Cancelled Urine Occult Blood Cancelled Urine Nitrite Cancelled Urine Bilirubin Cancelled Urine Urobilinogen Cancelled Ur Leukocyte Esterase Cancelled Urine RBC Cancelled Urine WBC Cancelled Ur Squamous Epith Cells Cancelled Ur Transition Epith Cell Cancelled Ur Renal Epithelial Cell Cancelled Calcium Oxalate Crystal Cancelled Uric Acid Crystals Cancelled Triple Phos Crystals Cancelled Other Crystals Cancelled Amorphous Sediment Cancelled Urine Bacteria Cancelled Hyaline Casts Cancelled Fine Granular Casts Cancelled Coarse Granular Casts Cancelled Waxy Casts Cancelled RBC Casts Cancelled WBC Casts Cancelled Urine Mucus Cancelled Urine Trichomonas Cancelled Urine Yeast Cancelled Urine Creatinine Urine Urea Nitrogen 222 Ethyl Alcohol Acetone Level 07/17/18 07/17/18 06:07 06:07 WBC 8.2 RBC 3.14 L Hgb 9.4 L Hct 28.3 L MCV 90.1 MCH 29.9 MCHC 33.2 RDW 15.0 H RDW Differential 48.2 H Plt Count 194 MPV 9.5 Immature Gran % (Auto) 0.100 Neut % (Auto) 69.8 Lymph % (Auto) 20.1 [place] % (Auto) 9.0 Eos % (Auto) 1.0 Baso % (Auto) 0.0 Absolute Neuts (auto) 5.7 Absolute Lymphs (auto) 1.65 Total Counted Not Reportable Eos Smear Total Cells Specimen Type pH Bicarbonate Actual POC Total CO2 Base Excess O2 Saturation ABG pCO2 ABG pO2 Rhys Test O2 Delivery Device Blood Gas Notified Whom Blood Gas Notified Time Sodium 137 Potassium 3.0 L Chloride 100 Carbon Dioxide 25.0 Anion Gap 12 BUN 17 Creatinine 1.33 H Estim Creat Clear Calc 40.79 Est GFR (MDRD) Af Amer 53 L Est GFR (MDRD) Non-Af 44 L BUN/Creatinine Ratio 12.8 Glucose 163 H Lactic Acid Calcium 7.5 L Phosphorus Magnesium Total Bilirubin Direct Bilirubin AST ALT Alkaline Phosphatase Total Protein Albumin Globulin Lipase Urine Color Urine Clarity Urine pH Ur Specific Price U Specif Grav (Refrac) Urine Protein Urine Glucose (UA) Urine Ketones Urine Occult Blood Urine Nitrite Urine Bilirubin Urine Urobilinogen Ur Leukocyte Esterase Urine RBC Urine WBC Ur Squamous Epith Cells Ur Transition Epith Cell Ur Renal Epithelial Cell Calcium Oxalate Crystal Uric Acid Crystals Triple Phos Crystals Other Crystals Amorphous Sediment Urine Bacteria Hyaline Casts Fine Granular Casts Coarse Granular Casts Waxy Casts RBC Casts WBC Casts Urine Mucus Urine Trichomonas Urine Yeast Urine Creatinine Urine Urea Nitrogen Ethyl Alcohol Acetone Level Medical Necessity - Tobacco Use Smoking Status: Current every day smoker Tobacco Use: Cigarettes Assessment/Plan All Active Problems (Last Reviewed 07/16/18 @ 15:12 by Tio Conley DO) YADIRA (acute kidney injury) (Acute) Alcohol withdrawal delirium, acute, hyperactive (Acute) Hepatotoxicity, secondary to ETOH (Acute) Elevated ETOH level (Acute) ETOH abuse (Acute) 1. Acute kidney injury-secondary to dehydration as a result of nausea/vomiting suspected secondary to heavy alcohol use. Creatinine improved with IV fluids. Trend BMP. 2. Hypokalemia-secondary to 1. Replaced per protocol. Trend BMP. 3. Acute alcohol withdrawal, chronic alcohol use-CIWA/Ativan protocol. Thiamine, folic acid, multivitamin supplementation. [facility] evaluation. Patient given outpatient resources for grief counseling/alcohol dependence. Medical stabilization per protocol. 4. Alcoholic ketoacidosis-resolved. 5. Alcoholic hepatitis-liver enzymes elevated. Repeat liver panel. 6. GERD-continue PPI. 7. Hypertension-stable. Home HCTZ regimen on hold due to acute kidney injury. 8. Tobacco dependence-encouraged smoking cessation. Nicotine replacement patch. 9. Acute on chronic normochromic, normocytic anemia-possibly due to hemodilution. Trend CBC. Previous iron studies within normal limits. 10. Anxiety/depression-encouraged outpatient counseling. Patient agreeable. Resources given per social work. DVT prophylaxis-heparin subcu This patient was seen by DALE Palomino under the supervision of Dr. Lawson. <Wendie Lawson - Last Filed: 07/17/18 14:13> - Physical Exam Vital Signs Temp Pulse Resp BP Pulse Ox 98.7 F 95 18 137/85 H 96 07/17/18 09:25 07/17/18 09:25 07/17/18 09:25 07/17/18 09:25 07/17/18 09:25 Oxygen Delivery Method Room Air Weight: 133 lb 9.602 oz Body Mass Index (BMI) 22.9 Intake and Output for Last 24 Hours 07/15/18 07/16/18 07/17/18 23:59 23:59 23:59 Intake Total 270 / 270 3099 / 3099 Output Total 400 / 400 Balance 270 / 270 2699 / 2699 Laboratory Tests Past 24 Hrs 07/16/18 07/16/18 07/16/18 12:25 14:58 15:15 WBC RBC Hgb Hct MCV MCH MCHC RDW RDW Differential Plt Count MPV Immature Gran % (Auto) Neut % (Auto) Lymph % (Auto) [place] % (Auto) Eos % (Auto) Baso % (Auto) Absolute Neuts (auto) Absolute Lymphs (auto) Total Counted Eos Smear Total Cells Specimen Type pH Bicarbonate Actual POC Total CO2 Base Excess O2 Saturation ABG pCO2 ABG pO2 Rhys Test O2 Delivery Device Blood Gas Notified Whom Blood Gas Notified Time Sodium Potassium Chloride Carbon Dioxide Anion Gap BUN Creatinine Estim Creat Clear Calc Est GFR (MDRD) Af Amer Est GFR (MDRD) Non-Af BUN/Creatinine Ratio Glucose Lactic Acid 2.3 H Calcium Phosphorus 6.6 H Magnesium 1.8 Urine Color Yellow Urine Clarity Clear Urine pH 6.0 Ur Specific Price 1.010 U Specif Grav (Refrac) Urine Protein 30 H Urine Glucose (UA) Normal Urine Ketones 150 H Urine Occult Blood 50 H Urine Nitrite Negative Urine Bilirubin Negative Urine Urobilinogen Normal Ur Leukocyte Esterase Negative Urine RBC 0 SEEN Urine WBC 0 SEEN Ur Squamous Epith Cells 0 SEEN Ur Transition Epith Cell Ur Renal Epithelial Cell Calcium Oxalate Crystal Uric Acid Crystals Triple Phos Crystals Other Crystals Amorphous Sediment Urine Bacteria 0 SEEN Hyaline Casts Fine Granular Casts Coarse Granular Casts Waxy Casts RBC Casts WBC Casts Urine Mucus 0 SEEN Urine Trichomonas Urine Yeast Urine Creatinine Urine Urea Nitrogen 07/16/18 07/16/18 07/16/18 15:17 16:20 16:20 WBC RBC Hgb Hct MCV MCH MCHC RDW RDW Differential Plt Count MPV Immature Gran % (Auto) Neut % (Auto) Lymph % (Auto) [place] % (Auto) Eos % (Auto) Baso % (Auto) Absolute Neuts (auto) Absolute Lymphs (auto) Total Counted Eos Smear Total Cells Pending Specimen Type ART pH 7.31 L Bicarbonate Actual 10.6 L POC Total CO2 11 Base Excess -16 L O2 Saturation 96 ABG pCO2 21.2 L ABG pO2 85 Rhys Test NA O2 Delivery Device Room Air Blood Gas Notified Whom ED Blood Gas Notified Time 1500 Sodium Potassium Chloride Carbon Dioxide Anion Gap BUN Creatinine Estim Creat Clear Calc Est GFR (MDRD) Af Amer Est GFR (MDRD) Non-Af BUN/Creatinine Ratio Glucose Lactic Acid Calcium Phosphorus Magnesium Urine Color Urine Clarity Urine pH Ur Specific Price U Specif Grav (Refrac) Urine Protein Urine Glucose (UA) Urine Ketones Urine Occult Blood Urine Nitrite Urine Bilirubin Urine Urobilinogen Ur Leukocyte Esterase Urine RBC Urine WBC Ur Squamous Epith Cells Ur Transition Epith Cell Ur Renal Epithelial Cell Calcium Oxalate Crystal Uric Acid Crystals Triple Phos Crystals Other Crystals Amorphous Sediment Urine Bacteria Hyaline Casts Fine Granular Casts Coarse Granular Casts Waxy Casts RBC Casts WBC Casts Urine Mucus Urine Trichomonas Urine Yeast Urine Creatinine 17.40 Urine Urea Nitrogen 07/16/18 07/16/18 07/16/18 16:20 16:20 19:26 WBC RBC Hgb Hct MCV MCH MCHC RDW RDW Differential Plt Count MPV Immature Gran % (Auto) Neut % (Auto) Lymph % (Auto) [place] % (Auto) Eos % (Auto) Baso % (Auto) Absolute Neuts (auto) Absolute Lymphs (auto) Total Counted Eos Smear Total Cells Specimen Type pH Bicarbonate Actual POC Total CO2 Base Excess O2 Saturation ABG pCO2 ABG pO2 Rhys Test O2 Delivery Device Blood Gas Notified Whom Blood Gas Notified Time Sodium Potassium Chloride Carbon Dioxide Anion Gap BUN Creatinine Estim Creat Clear Calc Est GFR (MDRD) Af Amer Est GFR (MDRD) Non-Af BUN/Creatinine Ratio Glucose Lactic Acid 0.9 Calcium Phosphorus Magnesium Urine Color Cancelled Urine Clarity Cancelled Urine pH Cancelled Ur Specific Price Cancelled U Specif Grav (Refrac) Cancelled Urine Protein Cancelled Urine Glucose (UA) Cancelled Urine Ketones Cancelled Urine Occult Blood Cancelled Urine Nitrite Cancelled Urine Bilirubin Cancelled Urine Urobilinogen Cancelled Ur Leukocyte Esterase Cancelled Urine RBC Cancelled Urine WBC Cancelled Ur Squamous Epith Cells Cancelled Ur Transition Epith Cell Cancelled Ur Renal Epithelial Cell Cancelled Calcium Oxalate Crystal Cancelled Uric Acid Crystals Cancelled Triple Phos Crystals Cancelled Other Crystals Cancelled Amorphous Sediment Cancelled Urine Bacteria Cancelled Hyaline Casts Cancelled Fine Granular Casts Cancelled Coarse Granular Casts Cancelled Waxy Casts Cancelled RBC Casts Cancelled WBC Casts Cancelled Urine Mucus Cancelled Urine Trichomonas Cancelled Urine Yeast Cancelled Urine Creatinine Urine Urea Nitrogen 222 07/17/18 07/17/18 06:07 06:07 WBC 8.2 RBC 3.14 L Hgb 9.4 L Hct 28.3 L MCV 90.1 MCH 29.9 MCHC 33.2 RDW 15.0 H RDW Differential 48.2 H Plt Count 194 MPV 9.5 Immature Gran % (Auto) 0.100 Neut % (Auto) 69.8 Lymph % (Auto) 20.1 [place] % (Auto) 9.0 Eos % (Auto) 1.0 Baso % (Auto) 0.0 Absolute Neuts (auto) 5.7 Absolute Lymphs (auto) 1.65 Total Counted Not Reportable Eos Smear Total Cells Specimen Type pH Bicarbonate Actual POC Total CO2 Base Excess O2 Saturation ABG pCO2 ABG pO2 Rhys Test O2 Delivery Device Blood Gas Notified Whom Blood Gas Notified Time Sodium 137 Potassium 3.0 L Chloride 100 Carbon Dioxide 25.0 Anion Gap 12 BUN 17 Creatinine 1.33 H Estim Creat Clear Calc 40.79 Est GFR (MDRD) Af Amer 53 L Est GFR (MDRD) Non-Af 44 L BUN/Creatinine Ratio 12.8 Glucose 163 H Lactic Acid Calcium 7.5 L Phosphorus Magnesium Urine Color Urine Clarity Urine pH Ur Specific Price U Specif Grav (Refrac) Urine Protein Urine Glucose (UA) Urine Ketones Urine Occult Blood Urine Nitrite Urine Bilirubin Urine Urobilinogen Ur Leukocyte Esterase Urine RBC Urine WBC Ur Squamous Epith Cells Ur Transition Epith Cell Ur Renal Epithelial Cell Calcium Oxalate Crystal Uric Acid Crystals Triple Phos Crystals Other Crystals Amorphous Sediment Urine Bacteria Hyaline Casts Fine Granular Casts Coarse Granular Casts Waxy Casts RBC Casts WBC Casts Urine Mucus Urine Trichomonas Urine Yeast Urine Creatinine Urine Urea Nitrogen Assessment/Plan Patient seen by Kirsten HUNTER under my supervision. She was admitted with a complaint of incessant nausea nad vomiting after heavy alcohol use. She was found to be in YADIRA with creatinine of 2.79 on admission. Lipase was negative ruling out pancreatitis. She is being managed for AK I due to dehydration and hypokalemia as well as acute alcohol withdrawal. Patient seen and examined. He had no complaints. Nausea and vomiting had resolved. 12 point review of systems otherwise negative. Labs and vitals reviewed. On examination Vital Signs Height 5 ft 4 in Weight: 133 lb 9.602 oz Weight in Pounds 133.6 lbs Pulse Ox 96 Temperature 98.7 F Pulse Rate 95 Respiratory Rate 18 Blood Pressure 137/85 Blood Pressure Position Semi-Fowlers General: Alert, Oriented x3, Cooperative, No apparent distress HEENT: Atraumatic, PERRLA, EOMI, Normocephalic Neck: Supple, No JVD, Negative Carotid Bruits Lungs: Clear to auscultation, Normal air movement Cardiovascular: Regular rate, Regular Rhythm, Normal S1, Normal S2, No murmurs Abdomen: Bowel Sounds Present, Soft, Non Tender, Non-Distended Extremities: No clubbing, No cyanosis, No edema, Capillary Refill Less than 3 Seconds Skin: No rashes, No breakdown Musculoskeletal: No Tenderness to Palpation of Joints or Extremities Neurological: Cranial nerves II-XII grossly intact, Neuro grossly intact Psych/Mental Status: Flat Affect Plan is to continue hydration. Cr has trended down to 1.33. Continue alcohol withdrawal protocol and monitor CIWA score. Potassium was 3.0 today and was replaced. Will monitor. Rest as per Kirsten Clifton NP-C's note, which I have reviewed and agree with. Code Visit Inpatient E&M: 95971 Subs Hosp L3
[2018-07-17] MEDS: 0.9% NaCl Peripheral Flush Adult/Peds IV (15:12)
[2018-07-17] MEDS: 0.9% Normal Saline 1,000 ML 75 ML IV (15:12)
[2018-07-17] MEDS: hydrOXYzine PAM 25 MG Capsule 50 MG PO (20:49)
[2018-07-18] VITALS (8 sets, daily range): BP systolic 126–149; BP diastolic 68–101; PULSE 92–110; RESP 16–18; TEMP 36.8–37.4; O2SAT 93–100
[2018-07-18] MEDS: 0.9% Normal Saline 1,000 ML 75 ML IV ×2 (03:05→17:33)
[2018-07-18] MEDS: Sucralfate 1 GM Tablet PO ×4 (06:01→20:16)
[2018-07-18] MEDS: LORazepam 1 MG Tablet PO ×3 (06:01→20:15)
[2018-07-18 07:01] LABS: Hematocrit 32.1 % (37-47); Hemoglobin 10.3 g/dl (12.0-15.0); Mean Corp Hgb Conc 32.1 g/gl (32-36); Mean Corpuscular Hgb 29.2 pg (27.0-32.0); Mean Corpuscular Volume 90.9 fL (81-99); Mean Platelet Vol. 9.7 fl (6.2-12.0); Platelet Count 191 K/mm3 (150-450); RBC Distribution Width CV 15.6 % (11.6-14.6); RBC Distribution Width SD 51.5 fl (35.1-43.9); Red Blood Count 3.53 M/mm3 (4.2-5.4); White Blood Count 7.8 K/mm3 (4.4-11.0)
[2018-07-18 07:03] LABS: Scan Indicated on CBC? Y/N NO
[2018-07-18 07:20] LABS: AST(SGOT) 118 U/L (15-37); Alanine Aminotransfer ALT/SGPT 91 U/L (13-56); Albumin, Serum 3.3 g/dL (3.2-5.0); Alkaline Phosphatase 72 U/L (45-117); Anion Gap 9 (5-15); BUN 7 mg/dL (7-18); BUN/Creat Ratio 11.8 RATIO (10-20); Bilirubin, Direct 0.23 mg/dL (0.00-0.30); Chloride 98 mmol/L (98-107); EST Glomerular Filtration Rate 111 mL/min (>60); Est Glom Filt Rate - Afr Amer 134 mL/min (>60); Estimated Creatinine Clearance 90.41 ml/min; Globulin 3.6 g/dL (2.2-4.2); Glucose 95 mg/dL (74-106); Potassium 3.2 mmol/L (3.5-5.1); Protein, Total 6.9 g/dL (6.4-8.2); Sodium Level 136 mmol/L (136-145)
[2018-07-18] MEDS: Thiamine Hydrochloride 100 MG Tablet PO (09:12)
[2018-07-18] MEDS: Folic Acid 1 MG Tablet PO (09:12)
[2018-07-18] MEDS: Heparin Injection (Vial) 5,000 UNIT/ML VIAL 5000 UNIT SC ×2 (09:12→20:16)
[2018-07-18] MEDS: Multivitamins,Therapeutic Tablet 1 TABLET PO (09:12)
[2018-07-18] MEDS: Loratadine 10 MG Tablet PO (09:12)
[2018-07-18] MEDS: Pantoprazole Sodium 20 MG Tablet PO ×2 (09:12→20:16)
--- NOTE | 2018-07-18 12:19 | PCM.PROGNOTE ---
<Kirsten Clifton - Last Filed: 07/18/18 12:24> Patient Problems: Active and Suspected Problems (Last Reviewed 07/16/18 @ 15:12 by Tio Conley DO) YADIRA (acute kidney injury) (Acute) Alcohol withdrawal delirium, acute, hyperactive (Acute) Subjective: Patient seen and examined. Nausea, vomiting resolved. Patient complains of generalized weakness and feeling shaky with ambulating. Does not feel she can go home today. - Physical Exam General: Alert, Oriented x3, Cooperative, No apparent distress HEENT: Atraumatic, PERRLA, EOMI, Normocephalic Oral: Moist Mucosa Neck: Supple, No JVD, Negative Carotid Bruits Lungs: Clear to auscultation, Diminished Cardiovascular: Regular rate, Regular Rhythm, Normal S1, Normal S2, No murmurs Abdomen: Bowel Sounds Present, Soft, Non Tender, Non-Distended Extremities: No clubbing, No cyanosis, No edema, Capillary Refill Less than 3 Seconds Skin: No rashes, No breakdown Musculoskeletal: No Tenderness to Palpation of Joints or Extremities Neurological: Cranial nerves II-XII grossly intact, Neuro grossly intact Psych/Mental Status: Flat Affect Vital Signs Temp Pulse Resp BP Pulse Ox 98.4 F 93 18 149/94 H 94 07/18/18 10:00 07/18/18 10:00 07/18/18 10:00 07/18/18 10:00 07/18/18 10:00 Oxygen Delivery Method Room Air Weight: 133 lb 9.602 oz Body Mass Index (BMI) 22.9 Intake and Output for Last 24 Hours 07/16/18 07/17/18 07/18/18 23:59 23:59 23:59 Intake Total 270 / 270 4836 / 4836 1519 / 1519 Output Total 1500 / 1500 600 / 600 Balance 270 / 270 3336 / 3336 919 / 919 Laboratory Tests Past 24 Hrs 07/18/18 07/18/18 06:20 06:20 WBC 7.8 RBC 3.53 L Hgb 10.3 L Hct 32.1 L MCV 90.9 MCH 29.2 MCHC 32.1 RDW 15.6 H RDW Differential 51.5 H Plt Count 191 MPV 9.7 Sodium 136 Potassium 3.2 L Chloride 98 Carbon Dioxide 29.0 Anion Gap 9 BUN 7 Creatinine 0.60 Estim Creat Clear Calc 90.41 Est GFR (MDRD) Af Amer 134 Est GFR (MDRD) Non-Af 111 BUN/Creatinine Ratio 11.8 Glucose 95 Calcium 8.0 L Total Bilirubin 0.70 Direct Bilirubin 0.23 AST 118 H ALT 91 H Alkaline Phosphatase 72 Total Protein 6.9 Albumin 3.3 Globulin 3.6 Medical Necessity - Tobacco Use Smoking Status: Current every day smoker Tobacco Use: Cigarettes Assessment/Plan All Active Problems (Last Reviewed 07/16/18 @ 15:12 by Tio Conley DO) YADIRA (acute kidney injury) (Acute) Alcohol withdrawal delirium, acute, hyperactive (Acute) Hepatotoxicity, secondary to ETOH (Acute) Elevated ETOH level (Acute) ETOH abuse (Acute) 1. Acute kidney injury-secondary to dehydration as a result of nausea/vomiting suspected secondary to heavy alcohol use. Resolved with IV fluids. Trend BMP. 2. Hypokalemia-secondary to 1. Replaced per protocol. Trend BMP. 3. Acute alcohol withdrawal, chronic alcohol use-CIWA/Ativan protocol. Thiamine, folic acid, multivitamin supplementation. [facility] evaluation. Patient given outpatient resources for grief counseling/alcohol dependence. Medical stabilization per protocol. 4. Alcoholic ketoacidosis-resolved. 5. Alcoholic hepatitis-liver enzymes elevated. Repeat liver panel improved. 6. GERD-continue PPI. 7. Hypertension-stable. Home HCTZ regimen on hold due to acute kidney injury. Discontinue HCTZ and begin amlodipine 5mg daily, increase to 10mg daily if necessary. 8. Tobacco dependence-encouraged smoking cessation. Nicotine replacement patch. 9. Acute on chronic normochromic, normocytic anemia-possibly due to hemodilution. Trend CBC. Previous iron studies within normal limits. 10. Anxiety/depression-encouraged outpatient counseling. Patient agreeable. Resources given per social work. 11. Debility, weakness-PT evaluation. PT recommending repeat evaluation in a.m. with anticipated discharge home. DVT prophylaxis-heparin subcu Discharge planning: Anticipate discharge home tomorrow after repeat PT evaluation. This patient was seen by DALE Palomino under the supervision of Dr. Lawson. <Wendie Lawson - Last Filed: 07/18/18 14:52> - Physical Exam Vital Signs Temp Pulse Resp BP Pulse Ox 99.0 F 95 18 130/80 H 95 07/18/18 13:34 07/18/18 13:34 07/18/18 13:34 07/18/18 13:34 07/18/18 13:34 Oxygen Delivery Method Room Air Weight: 133 lb 9.602 oz Body Mass Index (BMI) 22.9 Intake and Output for Last 24 Hours 07/16/18 07/17/18 07/18/18 23:59 23:59 23:59 Intake Total 270 / 270 4836 / 4836 1519 / 1519 Output Total 1500 / 1500 600 / 600 Balance 270 / 270 3336 / 3336 919 / 919 Laboratory Tests Past 24 Hrs 07/18/18 07/18/18 06:20 06:20 WBC 7.8 RBC 3.53 L Hgb 10.3 L Hct 32.1 L MCV 90.9 MCH 29.2 MCHC 32.1 RDW 15.6 H RDW Differential 51.5 H Plt Count 191 MPV 9.7 Sodium 136 Potassium 3.2 L Chloride 98 Carbon Dioxide 29.0 Anion Gap 9 BUN 7 Creatinine 0.60 Estim Creat Clear Calc 90.41 Est GFR (MDRD) Af Amer 134 Est GFR (MDRD) Non-Af 111 BUN/Creatinine Ratio 11.8 Glucose 95 Calcium 8.0 L Total Bilirubin 0.70 Direct Bilirubin 0.23 AST 118 H ALT 91 H Alkaline Phosphatase 72 Total Protein 6.9 Albumin 3.3 Globulin 3.6 Assessment/Plan Patient seen by Kirsten Clifton NP-C under my supervision. Patient seen and examined. She says she feels better, but has some shakiness on her feet. REview of systems otherwise negative, but she doesnt feel well enough to go home today. Labs and vitals reviewed. On examination Vital Signs Height 5 ft 4 in Weight: 133 lb 9.602 oz Weight in Pounds 133.6 lbs Pulse Ox 95 Temperature 99.0 F Pulse Rate 95 Respiratory Rate 18 Blood Pressure 130/80 Blood Pressure Position Left Lateral General: Alert, Oriented x3, Cooperative, No apparent distress HEENT: Atraumatic, PERRLA, EOMI, Normocephalic Neck: Supple, No JVD, Negative Carotid Bruits Lungs: Clear to auscultation, Normal air movement Cardiovascular: Regular rate, Regular Rhythm, Normal S1, Normal S2, No murmurs Abdomen: Bowel Sounds Present, Soft, Non Tender, Non-Distended Extremities: No clubbing, No cyanosis, No edema, Capillary Refill Less than 3 Seconds Skin: No rashes, No breakdown Musculoskeletal: No Tenderness to Palpation of Joints or Extremities Neurological: Cranial nerves II-XII grossly intact, Neuro grossly intact Psych/Mental Status: Flat Affect Plan is to continue hydration. Cr has trended down to 0.6. Continue alcohol withdrawal protocol and monitor CIWA score. Potassium was 3.2 today and was replaced. Will check magnesium level, as potassium has been refractory to correction. Will monitor. Rest as per Kirsten Clifton ELEVATING GRADER OPERATOR-C's note, which I have reviewed and agree with. Code Visit Inpatient E&M: 88294 Subs Hosp L3
[2018-07-18] MEDS: amLODIPine 5 MG Tablet PO (13:40)
[2018-07-18 16:03] LABS: Magnesium 1.4 mg/dL (1.6-2.6)
[2018-07-19 03:21] VITALS: BP 151/86; PULSE 102; RESP 18; TEMP 36.9; O2SAT 99
[2018-07-19 03:22] VITALS: BP 151/86; PULSE 102; RESP 18; TEMP 36.9; O2SAT 99
[2018-07-19] MEDS: LORazepam 1 MG Tablet PO ×2 (03:24→12:00)
[2018-07-19 03:34] VITALS: RESP 18; O2SAT 99
[2018-07-19] MEDS: 0.9% Normal Saline 1,000 ML 75 ML IV (06:31)
[2018-07-19] MEDS: Sucralfate 1 GM Tablet PO ×2 (06:31→12:00)
[2018-07-19 06:43] LABS: Anion Gap 8 (5-15); BUN 9 mg/dL (7-18); BUN/Creat Ratio 15.4 RATIO (10-20); Calcium,Total 8.3 mg/dL (8.5-10.1); Chloride 100 mmol/L (98-107); Creatinine, Serum 0.58 mg/dL (0.55-1.02); EST Glomerular Filtration Rate 113 mL/min (>60); Est Glom Filt Rate - Afr Amer 137 mL/min (>60); Estimated Creatinine Clearance 93.52 ml/min; Glucose 107 mg/dL (74-106); Sodium Level 137 mmol/L (136-145)
[2018-07-19 07:30] VITALS: BP 147/85; PULSE 92; RESP 18; TEMP 37.1; O2SAT 97
[2018-07-19] MEDS: Multivitamins,Therapeutic Tablet 1 TABLET PO (07:38)
[2018-07-19] MEDS: Folic Acid 1 MG Tablet PO (07:38)
[2018-07-19] MEDS: Thiamine Hydrochloride 100 MG Tablet PO (07:38)
[2018-07-19] MEDS: Acetaminophen 325 MG Tablet 650 MG PO (07:39)
[2018-07-19] MEDS: Pantoprazole Sodium 20 MG Tablet PO (07:39)
[2018-07-19] MEDS: amLODIPine 5 MG Tablet PO (07:39)
[2018-07-19] MEDS: Loratadine 10 MG Tablet PO (07:39)
[2018-07-19 09:08] LABS: Magnesium 1.4 mg/dL (1.6-2.6)
[2018-07-19] MEDS: Magnesium Sulfate 4gm/100mL 4 GM/100 ML IV.SOLN. IV (09:17)
[2018-07-19] MEDS: Heparin Injection (Vial) 5,000 UNIT/ML VIAL 5000 UNIT SC (10:09)
[2018-07-19 11:45] VITALS: BP 130/87; PULSE 89; RESP 18; TEMP 36.9; O2SAT 98
--- NOTE | 2018-07-19 11:46 | DCINST_ITS ---
- Discharge Diagnoses Current Active Problems: Current Active and Chronic Problems (Last Reviewed 07/16/18 @ 15:12 by Tio Conley DO) YADIRA (acute kidney injury) (Acute) Alcohol withdrawal delirium, acute, hyperactive (Acute) You will use the following diet at home:: Cardiac Your food should be the consistency of: Regular Your liquids should be the consistency of: Regular/Thin Discharge Activity: Return to Normal Activity Call your doctor if you observe: Fever of 101 or Higher, Numbness or Tingling, Dizziness, Fainting spells Instructions: Discharge Instructions for Acute Kidney Injury Additional Instructions: follow up with your primary care doctor for a repeat BMP and Mg level in 3-4 days to monitor potassium and magnesium level Allergies/Adverse Reactions: Allergies Penicillins Allergy (Verified 07/16/18 15:45) WEAKNESS,VISION ISSUES PT STATES MAKES HER WEAK Medications to take at Discharge Hydroxyzine HCl 50 mg PO BID PRN PRN 08/11/17 Lorazepam [Ativan] 0.5 mg PO BID PRN PRN #20 tab 08/14/17 albuterol sulfate 2.5 mg/3 mL (0.083 %) solution for nebulization 2.5 mg INHALATION Q4H PRN 04/04/18 loratadine 10 mg tablet 10 mg PO DAILY 04/04/18 omeprazole 20 mg capsule,delayed release 20 mg PO BID cap 04/04/18 Hydrochlorothiazide 12.5 mg PO DAILY 06/15/18 Ibuprofen 600 mg PO 4X/DAY 06/15/18 Sucralfate [Carafate] 1 gm PO 4X/DAY 06/15/18 Fluticasone/Vilanterol [Breo Ellipta 100-25 Mcg INH] 1 puff INHALATION DAILY 07/16/18 Ibuprofen [Ibu-200] 400 mg PO PRN PRN 07/16/18 Potassium Chloride [K-Dur] 20 meq PO BID #60 tablet 07/19/18 The following prescriptions were given: Potassium Chloride [K-Dur] 20 meq PO BID #60 tablet Primary Care Physician: Kellie Delarosa DO [Primary Care Provider] - Please follow up with your Primary Care Physician in: one week Test Results: Test results from this visit will be discussed in further detail at your follow- up appointment, if applicable. Proposed Discharge Date: 07/19/18
--- NOTE | 2018-07-19 11:47 | DS.PCM_ITS ---
Discharge Date and Diagnosis - Problem List Patient Problems: Active and Suspected Problems (Last Reviewed 07/16/18 @ 15:12 by Tio Conley DO) YADIRA (acute kidney injury) (Acute) Alcohol withdrawal delirium, acute, hyperactive (Acute) Date of Admission: 07/16/18 Date of Discharge: 07/19/18 - Primary Discharge Diagnosis Active and Suspected Problems (Last Reviewed 07/16/18 @ 15:12 by Tio Conley DO) YADIRA (acute kidney injury) (Acute) Alcohol withdrawal delirium, acute, hyperactive (Acute) Hospital Course and Treatment Consultations 07/16/18 15:34 Consult: [facility] Routine Consulting Provider: Consulted Physician Type:: [facility] [employer] Reason for consult:: alcohol abuse Operations: None Procedures: None Summary of Care Provided: The patient is a 57 year old F with a past medical history of COPD and chronic alcohol abuse as well as anxiety. She was admitted with complaint of 3 days of intractable nausea and vomiting as well as diffuse myalgias. Patient had been drinking heavily for a few days prior to admission with the last drink being the day before admission and she simply stopped drinking because she ran out of alcohol. She also complained of tremors and anxiety and said she drank to help her cope with anxiety. Her daughter had recently and her mother a co uple of years ago and so she has been having trouble coping with these events. She was admitted and managed for intractable nausea and vomiting likely due to alcohol abuse. She was also noted to have AK I likely due to dehydration from nausea and vomiting. She was resuscitated with IV fluids and put on alcohol withdrawal protocol with Ativan. Acute pancreatitis was ruled out with negative lipase. Patient's nausea and vomiting resolved. His stay was complicated by hypokalemia which was refractory to correction and he was also noted to have hypomagnesemia which was corrected. Patient was discharged home on 07/19/2018 with a prescription for p.o. potassium 20 mg twice daily. She is to follow-up with her PCP in 3-4 days time for repeat BMP and magnesium check. Patient seen and examined prior to discharge. She had no complaints and felt well enough to go home. She denied any fever or chills, any cough or chest pain, any shortness of breath, any abdominal pain, any diarrhea vomiting. 12 point review of systems otherwise negative. Labs and vitals reviewed. Home medications reviewed on consult. On examination: Vital Signs Height 5 ft 4 in Weight: 133 lb 9.602 oz Weight in Pounds 133.6 lbs Pulse Ox 98 Temperature 98.5 F Pulse Rate 89 Respiratory Rate 18 Blood Pressure 130/87 Blood Pressure Position Semi-Fowlers []General: Alert, Oriented x3, Cooperative, No apparent distress HEENT: Atraumatic, PERRLA, EOMI, Normocephalic Oral: Moist Mucosa Neck: Supple, No JVD, Negative Carotid Bruits Lungs: Clear to auscultation, Diminished Cardiovascular: Regular rate, Regular Rhythm, Normal S1, Normal S2, No murmurs Abdomen: Bowel Sounds Present, Soft, Non Tender, Non-Distended Extremities: No clubbing, No cyanosis, No edema, Capillary Refill Less than 3 Seconds Skin: No rashes, No breakdown Musculoskeletal: No Tenderness to Palpation of Joints or Extremities Neurological: Cranial nerves II-XII grossly intact, Neuro grossly intact, Psych/Mental Status: appropriate, alert and oriented x 3 Patient counselled strongly to quit drinking alcohol,and [facility] was consulted to marriage and family counselor patient about available community resources to help with quitting drinking. Patient Problems: Active and Suspected Problems (Last Reviewed 07/16/18 @ 15:12 by Tio Conley DO) YADIRA (acute kidney injury) (Acute) Alcohol withdrawal delirium, acute, hyperactive (Acute) - Physical Exam Vital Signs Temp Pulse Resp BP Pulse Ox 98.8 F 92 18 147/85 H 97 07/19/18 07:30 07/19/18 07:30 07/19/18 07:30 07/19/18 07:30 07/19/18 07:30 Oxygen Delivery Method Room Air Weight: 133 lb 9.602 oz Body Mass Index (BMI) 22.9 Intake and Output for Last 24 Hours 07/17/18 07/18/18 07/19/18 23:59 23:59 23:59 Intake Total 4836 / 4836 3300 / 3300 979 / 979 Output Total 1500 / 1500 1650 / 1650 Balance 3336 / 3336 1650 / 1650 979 / 979 Laboratory Tests Past 24 Hrs 07/18/18 07/19/18 07/19/18 06:20 05:30 05:30 Sodium 137 Potassium 3.0 L Chloride 100 Carbon Dioxide 29.0 Anion Gap 8 BUN 9 Creatinine 0.58 Estim Creat Clear Calc 93.52 Est GFR (MDRD) Af Amer 137 Est GFR (MDRD) Non-Af 113 BUN/Creatinine Ratio 15.4 Glucose 107 H Calcium 8.3 L Magnesium 1.4 L 1.4 L Discharge Diet: Low fat/ Low Cholesterol Discharge Activity: Return to Normal Activity Call your doctor if you observe: Fever of 101 or Higher, Numbness or Tingling, Dizziness, Fainting spells Home Medications: Medications to take at Discharge RX: Hydroxyzine HCl 50 mg PO BID PRN PRN 08/11/17 RX: Lorazepam [Ativan] 0.5 mg PO BID PRN PRN #20 tab 08/14/17 albuterol sulfate 2.5 mg/3 mL (0.083 %) solution for nebulization 2.5 mg INHALATION Q4H PRN 04/04/18 loratadine 10 mg tablet 10 mg PO DAILY 04/04/18 omeprazole 20 mg capsule,delayed release 20 mg PO BID cap 04/04/18 RX: Hydrochlorothiazide 12.5 mg PO DAILY 06/15/18 RX: Ibuprofen 600 mg PO 4X/DAY 06/15/18 RX: Sucralfate [Carafate] 1 gm PO 4X/DAY 06/15/18 Ibuprofen [Ibu-200] 400 mg PO PRN PRN 07/16/18 RX: Fluticasone/Vilanterol [Breo Ellipta 100-25 Mcg INH] 1 puff INHALATION DAILY 07/16/18 RX: Potassium Chloride [K-Dur] 20 meq PO BID #60 tablet 07/19/18 Following Prescrptions Were Given to Patient: RX: Potassium Chloride [K-Dur] 20 meq PO BID #60 tablet Primary Care Physician: Kellie Delarosa DO [Primary Care Provider] - Please follow up with your Primary Care Physician in: one week Patient Instructions: Discharge Instructions for Acute Kidney Injury Disposition: Home Minutes spent on discharge:: 35 Patient Condition:: Stable Medical Necessity - Tobacco Use Smoking Status: Current every day smoker Tobacco Use: Cigarettes Meaningful Use Info Meaningful Use Diagnoses (Choose all that apply): None applicable Code Visit Inpatient E&M: 19721 Disch Hosp
[2018-07-19 14:00] VITALS: BP 130/87; PULSE 89; RESP 18; TEMP 36.9; O2SAT 98
--- NOTE | 2018-07-19 14:23 | PCM.WORK.EX ---
Work/School Excuse Work/School Excuse for:: Patient Please excuse this person from:: Work From: 07/16/18 through: 07/22/18
[2018-07-19 14:59] LABS: Eosinophil Ct. Urine No Eosinophils Seen % (.)
== END 2018-07-19 14:40 | disposition home or self-care (01) | DRG 469 ==
LOC: ED 13:10 → MS3 15:44
PROVIDERS: Nurse Practitioner Family; Emergency Provider Emergency Medicine; Family Provider Family Medicine; PCP Family Medicine; Visit Provider Student in an Organized Health Care Education/Training Program
DX: N17.9 Acute kidney failure, unspecified (principal); F10.231 Alcohol dependence with withdrawal delirium; F17.210 Nicotine dependence, cigarettes, uncomplicated; E87.2 Acidosis; I10 Essential (primary) hypertension; E86.0 Dehydration; E87.6 Hypokalemia; E83.42 Hypomagnesemia; K70.10 Alcoholic hepatitis without ascites
CPT/HCPCS: 36415; 36600; 80048; 80076; 80320; 81001; 82009; 82570; 82803; 83605; 83690; 83735; 84100; 84540; 85025; 85027; 87205; 93005; 94640; 97162; 97530; 97802; 99282; 99406; J7030; A4216; G0480; J2405; J3490; J7799

== ENCOUNTER → 2018-07-26 12:09 | Outpatient (CLI) | payer MEDICAID, SELFPAY ==
[2018-07-16 15:43] VITALS: BMI 22.9
[2018-07-26 14:21] LABS: Anion Gap 10 (5-15); BUN 12 mg/dL (7-18); BUN/Creat Ratio 11.7 RATIO (10-20); Calcium,Total 9.5 mg/dL (8.5-10.1); Chloride 100 mmol/L (98-107); Creatinine, Serum 1.03 mg/dL (0.55-1.02); EST Glomerular Filtration Rate 59 mL/min (>60); Est Glom Filt Rate - Afr Amer 71 mL/min (>60); Glucose 104 mg/dL (74-106); Magnesium 1.8 mg/dL (1.6-2.6); Potassium 3.7 mmol/L (3.5-5.1); Sodium Level 136 mmol/L (136-145)
--- OUTSIDE RECORDS SUMMARY | 2018-09-30 04:11 | XMS RPT_ITS ---
:1960 Author Organization OHIP Support Name Relationship Address Phone [employer] Unavailable [address] + [place] [address] HODER, ROBERTA Unavailable [address] + [place] [address] [employer] Unavailable [address] + [place] [address] HODER, ROBERTA Unavailable [address] + [place] [address] [employer] Unavailable [address] + [place] [address] HODER, ROBERTA Unavailable [address] + [place] [address] [employer] Unavailable [address] + [place] [address] HODER, ROBERTA Unavailable [address] + [place] [address] [employer] Unavailable [address] + [place] [address] HODER, ROBERTA Unavailable [address] + [place] [address] [employer] Unavailable [address] + [place] [address] HODER, ROBERTA Unavailable [address] + [place] [address] HODER, ROBERTA Unavailable [address] + [place] [address] UE Unavailable Unavailable Unavailable JASONER, ROBERTA Unavailable [address] + [place] [address] UE Unavailable Unavailable Unavailable HODER, ROBERTA Unavailable [address] + [place] [address] UE Unavailable Unavailable Unavailable HODER, ROBERTA Unavailable [address] + [place] [address] UE Unavailable Unavailable Unavailable HODER, ROBERTA Unavailable [address] + [place] [address] UE Unavailable Unavailable Unavailable UE Unavailable Unavailable Unavailable UE Unavailable Unavailable Unavailable LINDA CHAVEZ Unavailable [address] + [place] [address] UE Unavailable Unavailable Unavailable LINDA CHAVEZ Unavailable [address] + [place] [address] UE Unavailable Unavailable Unavailable LINDA CHAVEZ Unavailable [address] + [place] [address] UE Unavailable Unavailable Unavailable LINDA CHAVEZ Unavailable [address] + [place] [address] UE Unavailable Unavailable Unavailable LINDA CHAVEZ Unavailable [address] + [place] [address] UE Unavailable Unavailable Unavailable LINDA CHAVEZ Unavailable [address] + [place] [address] UE Unavailable Unavailable Unavailable LINDA CHAVEZ Unavailable [address] + [place] [address] UE Unavailable Unavailable Unavailable Care Team Providers Name Role Phone KOVOLYAN, MARLYN K Attending Unavailable KOVOLYAN, MARLYN K Referring Unavailable KOVOLYAN, MARLYN K Attending Unavailable KOVOLYAN, MARLYN K Referring Unavailable KOVOLYAN, MARLYN K Attending Unavailable KOVOLYAN, MARLYN K Referring Unavailable KOVOLYAN, MARLYN K Attending Unavailable KOVOLYAN, MARLYN K Referring Unavailable KOVOLYAN, MARLYN K Attending Unavailable KOVOLYAN, MARLYN K Referring Unavailable CEZAR ESPINOZA Attending Unavailable KOVOLYAN, MARLYN K Referring Unavailable KOVOLYAN, MARLYN K Attending Unavailable KOVOLYAN, MARLYN K Referring Unavailable KOVOLYAN, MARLYN K Attending Unavailable KOVOLYAN, MARLYN K Referring Unavailable CEZAR ESPINOZA Admitting Unavailable CEZAR ESPINOZA Attending Unavailable CEZAR ESPINOZA Referring Unavailable DANITA, VIRGILIO R Attending Unavailable KOVOLYAN, MARLYN K Referring Unavailable DANITA, VIRGILIO R Admitting Unavailable DNAITA, VIRGILIO R Attending Unavailable DANITA, VIRGILIO R Referring Unavailable OLGA, CEZAR Attending Unavailable OLGA, CEZAR Referring Unavailable MURIEL HAMMER Attending Unavailable OLGA, CEZAR Referring Unavailable KOVOLYAN, MARLYN K Attending Unavailable KOVOLYAN, MARLYN K Referring Unavailable OLGA, CEZAR Attending Unavailable OLAG, CEZAR Referring Unavailable Robotham, Mary Attending Unavailable Robotham, Mary Referring Unavailable Malys, Kellie Primary Care Unavailable Robotham, Mary Consulting Unavailable Malys, Kellie Primary Care Unavailable Jopperi, Tio Admitting Unavailable Koram, Wendie Merissa Attending Unavailable Jopperi, Tio Attending Unavailable Malys, Kellie Primary Care Unavailable Jopperi, Tio Admitting Unavailable Malys, Kellie Primary Care Unavailable Koram, Wendie Merissa Consulting Unavailable Koram, Wendie Merissa Attending Unavailable Jopperi, Tio Admitting Unavailable Malys, Kellie Primary Care Unavailable Koram, Wendie Merissa Consulting Unavailable Koram, Wendie Merissa Attending Unavailable Jopperi, Tio Admitting Unavailable Koram, Wendie Merissa Attending Unavailable Malys, Kellie Primary Care Unavailable Koram, Wendie Merissa Consulting Unavailable Malys, Kellie Primary Care Unavailable Trixie, Jorge Admitting Unavailable Ashelfah, Ghasem Attending Unavailable Trixie, Jorge Admitting Unavailable Malys, Kellie Primary Care Unavailable Trixie, Jorge Consulting Unavailable Jopperi, Tio Attending Unavailable Trixie, Jorge Admitting Unavailable Sementi, Bettina Attending Unavailable Malys, Kellie Primary Care Unavailable Sementi, Bettina Consulting Unavailable Trixie, Jorge Admitting Unavailable Sementi, Bettina Attending Unavailable Malys, Kellie Primary Care Unavailable Sementi, Bettina Consulting Unavailable Trixie, Jorge Admitting Unavailable Ashelfah, Ghasem Attending Unavailable Malys, Kellie Primary Care Unavailable Ashelfah, Ghasem Consulting Unavailable Malys, Kellie Primary Care Unavailable Ammon Bates Attending Unavailable Malys, Kellie Primary Care Unavailable Agustin Vera Attending Unavailable Sara Vyas Attending Unavailable DeborahedelSara Referring Unavailable Malys, Kellie Primary Care Unavailable Robotham, Mary Attending Unavailable Malys, Kellie Referring Unavailable Robotham, Mary Attending Unavailable Malys, Kellie Primary Care Unavailable Robotham, Mary Attending Unavailable Malys, Kellie Primary Care Unavailable Robotham, Mary Consulting Unavailable Robotham, Mary Attending Unavailable Malys, Kellie Referring Unavailable Robotham, Mary Attending Unavailable Robotham, Mary Referring Unavailable Malys, Kellie Primary Care Unavailable PROBLEMS PROBLEMS DATE TYPE CONDITION / CODE ATTENDING STATUS SOURCE 06/20/2018 Unknown 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, 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 / Repository N60.91(ICD-10) 06/18/2018 Unknown G89.18 - Other acute Robotham, Active [place] postprocedural pain [facility] / G89.18(ICD-10) Hospital Repository 03/15/2018 Admitting Post Op Visit / CEZAR ESPINOZA [facility] 554() [facility] [place] 02/13/2018 Admitting Acquired absence of OLGA, [facility]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 / Repository Z90.710(ICD-10) 02/13/2018 Admitting Encounter for other CEZAR ESPINOZA [facility] preprocedural [facility] examination / Repository Z01.818(ICD-10) 02/13/2018 Admitting Shortness of breath OLGA CEZAR [facility] / R06.02(ICD-10) [place] 01/07/2018 Admitting Uterovaginal OLGA [facility] prolapse, [facility] [place] unspecified / Repository N81.4(ICD-10) 12/18/2017 Admitting Cystocele, midline / OLGA CEZAR [facility] N81.11(ICD-10) [place] 02/08/2018 Admitting Preoperative KOVOLYAN, [facility] Diagnosis Assessment / 279() MAR[place] [facility] [place] 01/08/2018 Admitting Other abnormal and VIRGILIO SAMAYOA [facility] inconclusive R [facility] [place] findings on Repository diagnostic imaging of breast / R92.8(ICD-10) 02/02/2018 Admitting Pre-op Exam / MURIEL HAMMER [facility] 130913() L [facility] [place] 01/08/2018 Admitting New Patient / DANITA, VIRGILIO Active [facility] Diagnosis [id number]() R [facility] [place] 12/15/2017 Admitting Referral / 117() CEZAR ESPINOZA Active [facility] [place] 12/01/2017 Admitting Well Adult / 953() KOSAGE, [facility] [place] [facility] [place] 11/28/2017 Admitting Encounter for KOVOLYAN, [facility] Diagnosis screening mammogram MAR[place]N [place] [facility] [place] for malignant Repository neoplasm of breast / Z12.31(ICD-10) 11/20/2017 Admitting Chronic Obstructive KOVOLYAN, [facility] Pulmonary Disease / [place] [facility] [place] 157() Repository PROCEDURES PROCEDURES No Procedure Records FoundRESULTS RESULTS BASIC METABOLIC Collected: 07/26/2018 Status: F Source: [place] PROFILE (BMP) 12:17 PM [facility] REPOSITORY TYPE CODE TESTS RESULT OUT OF RANGE REFERENCE UNITS LAB L501.0100 74-106 mg/dL Normal GLU 104 Result Comment: Fasting Glucose result from 100 to 125 mg/dL suggests IMPAIRED HOMEOSTASIS per A.D.A. criteria. Please note revised GLUCOSE reference range effective 2017. LAB L501.1000 7-18 mg/dL Normal BUN 12 LAB L501.1100 0.55-1.02 mg/dL High CREAT,SERUM 1.03 Result Comment: The validity of the calculated GFR AND GFRAA in patients over 70 years has not been determined. Clinical correlation is essential. LAB L501.1110 >60 mL/min Low EST GFR 59 Result Comment: Non- GFR Calc LAB L501.1115 >60 mL/min Normal EST GFR - AA 71 Result Comment: GFR Calc LAB L501.1300 10-20 RATIO Normal BUN/CRE 11.7 LAB L501.2200 8.5-10.1 mg/dL CA Normal 9.5 LAB L501.5300 136-145 mmol/L NA Normal 136 LAB L501.5600 3.5-5.1 mmol/L K Normal 3.7 LAB L501.5900 98-107 mmol/L CL Normal 100 LAB L501.6100 21.0-32.0 mmol/L Normal CO2 26.0 LAB L501.6200 5-15 Normal GAP 10 Performed By: #### L500.2500, L501.5200 #### [facility] [address] [place], [address] MAGNESIUM Collected: 07/26/2018 Status: F Source: [place] 12:17 PM [facility] REPOSITORY TYPE CODE TESTS RESULT OUT OF RANGE REFERENCE UNITS LAB L501.5200 1.6-2.6 mg/dL Normal MG 1.8 Performed By: #### L500.2500, L501.5200 #### [facility] [address] [facility] [place], [address] DISCHARGE SUMMARY Observed: 07/19/2018 Status: F Source: [place] 2:27 PM [facility] REPOSITORY [facility] Medical Records Department [address] [place] [address] Discharge Summary 07/19/18 1147 MR#: [id number] Acct: [id number] Name: TAMI PABLO Rep #: [id number] : 1960 57 From: Wendie Lawson MD PCP: Kellie Delarosa DO Status: ADM IN Location: [place] [address] Discharge Date and Diagnosis - Problem List Patient Problems: Active and Suspected Problems (Last Reviewed 07/16/18 @ 15:12 by Tio Conley DO) YADIRA (acute kidney injury) (Acute) Alcohol withdrawal delirium, acute, hyperactive (Acute) Date of Admission: 07/16/18 Date of Discharge: 07/19/18 - Primary Discharge Diagnosis Active and Suspected Problems (Last Reviewed 07/16/18 @ 15:12 by Tio Conley DO) YADIRA (acute kidney injury) (Acute) Alcohol withdrawal delirium, acute, hyperactive (Acute) Hospital Course and Treatment Consultations 07/16/18 15:34 Consult: [facility] Routine Consulting Provider: Consulted Physician Type:: [facility] Reason for consult:: alcohol abuse Operations: None Procedures: None Summary of Care Provided: The patient is a 57 year old F with a past medical history of COPD and chronic alcohol abuse as well as anxiety. She was admitted with complaint of 3 days of intractable nausea and vomiting as well as diffuse myalgias. Patient had been drinking heavily for a few days prior to admission with the last drink being the day before admission and she simply stopped drinking because she ran out of alcohol. She also complained of tremors and anxiety and said she drank to help her cope with anxiety. Her daughter had recently and her mother a couple of years ago and so she has been having trouble coping with these events. She was admitted and managed for intractable nausea and vomiting likely due to alcohol abuse. She was also noted to have AK I likely due to dehydration from nausea and vomiting. She was resuscitated with IV fluids and put on alcohol withdrawal protocol with Ativan. Acute pancreatitis was ruled out with negative lipase. Patient's nausea and vomiting resolved. His stay was complicated by hypokalemia which was refractory to correction and he was also noted to have hypomagnesemia which was corrected. Patient was discharged home on 07/19/2018 with a prescription for p.o. potassium 20 mg twice daily. She is to follow-up with her PCP in 3-4 days time for repeat BMP and magnesium check. Patient seen and examined prior to discharge. She had no complaints and felt well enough to go home. She denied any fever or chills, any cough or chest pain, any shortness of breath, any abdominal pain, any diarrhea vomiting. 12 point review of systems otherwise negative. Labs and vitals reviewed. Home medications reviewed on consult. On examination: Vital Signs Height 5 ft 4 in Weight: 133 lb 9.602 oz Weight in Pounds 133.6 lbs Pulse Ox 98 []General: Alert, Oriented x3, Cooperative, No apparent distress HEENT: Atraumatic, PERRLA, EOMI, Normocephalic Oral: Moist Mucosa Neck: Supple, No JVD, Negative Carotid Bruits Lungs: Clear to auscultation, Diminished Cardiovascular: Regular rate, Regular Rhythm, Normal S1, Normal S2, No murmurs Abdomen: Bowel Sounds Present, Soft, Non Tender, Non-Distended Extremities: No clubbing, No cyanosis, No edema, Capillary Refill Less than 3 Seconds Skin: No rashes, No breakdown Musculoskeletal: No Tenderness to Palpation of Joints or Extremities Neurological: Cranial nerves II-XII grossly intact, Neuro grossly intact, Psych/Mental Status: appropriate, alert and oriented x 3 Patient counselled strongly to quit drinking alcohol,and [facility] was consulted to international student counselor patient about available community resources to help with quitting drinking. Patient Problems: Active and Suspected Problems (Last Reviewed 07/16/18 @ 15:12 by Tio Conley DO) YADIRA (acute kidney injury) (Acute) Alcohol withdrawal delirium, acute, hyperactive (Acute) - Physical Exam Vital Signs Temp Pulse Resp BP Pulse Ox 98.8 F 92 18 147/85 H 97 07/19/18 07:30 07/19/18 07:30 07/19/18 07:30 07/19/18 07:30 07/19/18 07:30 Oxygen Delivery Method Room Air Weight: 133 lb 9.602 oz Body Mass Index (BMI) 22.9 Intake and Output for Last 24 Hours Intake Total 4836 / 4836 3300 / 3300 979 / 979 Output Total 1500 / 1500 1650 / 1650 Balance 3336 / 3336 1650 / 1650 979 / 979 Laboratory Tests Past 24 Hrs Sodium 137 Potassium 3.0 L Chloride 100 Carbon Dioxide 29.0 Anion Gap 8 BUN 9 Creatinine 0.58 Discharge Diet: Low fat/ Low Cholesterol Discharge Activity: Return to Normal Activity Call your doctor if you observe: Fever of 101 or Higher, Numbness or Tingling, Dizziness, Fainting spells Home Medications: Medications to take at Discharge RX: Hydroxyzine HCl 50 mg PO BID PRN PRN 08/11/17 RX: Lorazepam [Ativan] 0.5 mg PO BID PRN PRN #20 tab 08/14/17 albuterol sulfate 2.5 mg/3 mL (0.083 %) solution for nebulization 2.5 mg INHALATION Q4H PRN 04/04/18 loratadine 10 mg tablet 10 mg PO DAILY 04/04/18 omeprazole 20 mg capsule,delayed release 20 mg PO BID cap 04/04/18 RX: Hydrochlorothiazide 12.5 mg PO DAILY 06/15/18 RX: Ibuprofen 600 mg PO 4X/DAY 06/15/18 RX: Sucralfate [Carafate] 1 gm PO 4X/DAY 06/15/18 Ibuprofen [Ibu-200] 400 mg PO PRN PRN 07/16/18 RX: Fluticasone/Vilanterol [Breo Ellipta 100-25 Mcg INH] 1 puff INHALATION DAILY 07/16/18 RX: Potassium Chloride [K-Dur] 20 meq PO BID #60 tablet 07/19/18 Following Prescrptions Were Given to Patient: RX: Potassium Chloride [K-Dur] 20 meq PO BID #60 tablet Primary Care Physician: Kellie Delarosa DO [Primary Care Provider] - Please follow up with your Primary Care Physician in: one week Patient Instructions: Discharge Instructions for Acute Kidney Injury Disposition: Home Minutes spent on discharge:: 35 Patient Condition:: Stable Medical Necessity - Tobacco Use Smoking Status: Current every day smoker Tobacco Use: Cigarettes Meaningful Use Info Meaningful Use Diagnoses (Choose all that apply): None applicable Code Visit Inpatient E AND M: 36019 Disch Hosp 07/19/18 1427 <Electronically signed by Wendie Lawson MD> Date Wendie Lawson MD Cosigner Signature (if applicable): Date CC: Kellie Delarosa DO; Wendie Lawson MD Signed DISCHARGE INSTRUCTION Observed: 07/19/2018 Status: F Source: [place] 11:46 AM [facility] REPOSITORY [facility] Medical Records Department [address] [place] [address] Instructions for Home/Discharge Instructions 07/19/18 1143 MR#: [id number] Acct: [id number] Name: TAMI PABLO Rep #: [id number] : 1960 57 From: Wendie Lawson MD PCP: Kellie Delarosa DO Status: ADM IN - Discharge Diagnoses Current Active Problems: Current Active and Chronic Problems (Last Reviewed 07/16/18 @ 15:12 by Tio Conley DO) YADIRA (acute kidney injury) (Acute) Alcohol withdrawal delirium, acute, hyperactive (Acute) You will use the following diet at home:: Cardiac Your food should be the consistency of: Regular Your liquids should be the consistency of: Regular/Thin Discharge Activity: Return to Normal Activity Call your doctor if you observe: Fever of 101 or Higher, Numbness or Tingling, Dizziness, Fainting spells Instructions: Discharge Instructions for Acute Kidney Injury Additional Instructions: follow up with your primary care doctor for a repeat BMP and Mg level in 3-4 days to monitor potassium and magnesium level Allergies/Adverse Reactions: Allergies Penicillins Allergy (Verified 07/16/18 15:45) WEAKNESS,VISION ISSUES PT STATES MAKES HER WEAK Medications to take at Discharge Hydroxyzine HCl 50 mg PO BID PRN PRN 08/11/17 Lorazepam [Ativan] 0.5 mg PO BID PRN PRN #20 tab 08/14/17 albuterol sulfate 2.5 mg/3 mL (0.083 %) solution for nebulization 2.5 mg INHALATION Q4H PRN 04/04/18 loratadine 10 mg tablet 10 mg PO DAILY 04/04/18 omeprazole 20 mg capsule,delayed release 20 mg PO BID cap 04/04/18 Hydrochlorothiazide 12.5 mg PO DAILY 06/15/18 Ibuprofen 600 mg PO 4X/DAY 06/15/18 Sucralfate [Carafate] 1 gm PO 4X/DAY 06/15/18 Fluticasone/Vilanterol [Breo Ellipta 100-25 Mcg INH] 1 puff INHALATION DAILY 07/16/18 Ibuprofen [Ibu-200] 400 mg PO PRN PRN 07/16/18 Potassium Chloride [K-Dur] 20 meq PO BID #60 tablet 07/19/18 The following prescriptions were given: Potassium Chloride [K-Dur] 20 meq PO BID #60 tablet Primary Care Physician: Kellie Delarosa DO [Primary Care Provider] - Please follow up with your Primary Care Physician in: one week Test Results: Test results from this visit will be discussed in further detail at your follow-up appointment, if applicable. Proposed Discharge Date: 07/19/18 07/19/18 1146 <Electronically signed by Wendie Lawson MD> Date Wendie Lawson MD CC: Kellie Delarosa DO Signed BASIC METABOLIC Collected: 07/19/2018 Status: F Source: [place] PROFILE (BMP) 5:30 AM [facility] REPOSITORY TYPE CODE TESTS RESULT OUT OF RANGE REFERENCE UNITS LAB L501.0100 74-106 mg/dL High GLU 107 Result Comment: Fasting Glucose result from 100 to 125 mg/dL suggests IMPAIRED HOMEOSTASIS per A.D.A. criteria. Please note revised GLUCOSE reference range effective 2017. LAB L501.1000 7-18 mg/dL Normal BUN 9 LAB L501.1100 0.55-1.02 mg/dL Normal CREAT,SERUM 0.58 Result Comment: The validity of the calculated GFR AND GFRAA in patients over 70 years has not been determined. Clinical correlation is essential. LAB L501.1110 >60 mL/min Normal EST GFR 113 Result Comment: Non- GFR Calc LAB L501.1115 >60 mL/min Normal EST GFR - AA 137 Result Comment: GFR Calc LAB L501.1255 ml/min Normal Estimated CRCL 93.52 LAB L501.1300 10-20 RATIO Normal BUN/CRE 15.4 LAB L501.2200 8.5-10 mg/dL Low .1 CA 8.3 LAB L501.5300 136-14 mmol/L Normal 5 NA 137 LAB L501.5600 3.5-5. mmol/L Low 1 K 3.0 LAB L501.5900 98-107 mmol/L Normal CL 100 LAB L501.6100 21.0-3 mmol/L Normal 2.0 CO2 29.0 LAB L501.6200 5-15 Normal GAP 8 Performed By: #### L500.2500 #### [facility] [address] [place], [address] MAGNESIUM Collected: 07/19/2018 Status: F Source: [place] 5:30 AM [facility] REPOSITORY Order Comment: PER HECTOR VAZQUEZ TO RUN ON MORNING LABS. TYPE CODE TESTS RESULT OUT OF RANGE REFERENCE UNITS LAB L501.5200 1.6-2.6 mg/dL Low MG 1.4 Performed By: #### L501.5200 #### [facility] [address] [place], [address] 12 LEAD ELECTROCARDIOGRAM Observed: 07/18/2018 Status: F Source: [place] 2:37 PM [facility] REPOSITORY [facility] Cardiovascular Services [address] [place] [address] 12 Lead EKG 07/16/18 1551 MR#: [id number] Acct: [id number] Name: TAMI PABLO Rep #: [id number] : 1960 57 From: Radu Ibrahim MD Attending Dr: Wendie Lawson MD Status: ADM IN Ordering Dr: Sherwin Khanna MD Date: 07/16/18 Location: [facility] Sex: F C Admitted: 07/16/18 Test Reason : SOB Blood Pressure : / mmHG Vent. Rate : 104 BPM Atrial Rate : 104 BPM P-R Int : 164 ms QRS Dur : 082 ms QT Int : 312 ms P-R-T Axes : 073 084 091 degrees QTc Int : 410 ms Sinus tachycardia Nonspecific T wave abnormality Abnormal ECG Confirmed by PATRICE NARVAEZ, RADU ([id number]), editor & co founder JAGDISH ZELAYA ([id number]) on 07/18/2018 2:36:41 PM Referred By: CLARIBEL Confirmed By:RADU IBRAHIM MD 07/18/18 1436 Date Radu Ibrahim MD CC: Sherwin Khanna MD; Kellie Delarosa DO; Wendie Lawson MD Signed CBC-COMPLETE BLOOD CNT Collected: 07/18/2018 Status: F Source: [place] NO DIFF 6:20 AM [facility] REPOSITORY TYPE CODE TESTS RESULT OUT OF RANGE REFERENCE UNITS LAB L100.1000 4.4-11.0 K/mm3 Normal WBC 7.8 LAB L100.1200 4.2-5.4 M/mm3 Low RBC 3.53 LAB L100.1300 12.0-15.0 g/dl Low HGB 10.3 LAB L100.1400 37-47 % Low HCT 32.1 LAB L100.1500 81-99 fL Normal MCV 90.9 LAB L100.1600 27.0-32.0 pg Normal MCH 29.2 LAB L100.1700 32-36 g/gl Normal MCHC 32.1 LAB L100.1810 11.6-14.6 % High RDW CV 15.6 LAB L100.1820 35.1-43.9 fl High RDW SD 51.5 LAB L100.1900 150-450 K/mm3 Normal PLT 191 LAB L100.2000 6.2-12.0 fl Normal MPV 9.7 Performed By: #### L100.0500 #### [facility] [address] [place], [place], [id number] BASIC METABOLIC Collected: 07/18/2018 Status: F Source: [place] PROFILE (BMP) 6:20 AM [facility] REPOSITORY TYPE CODE TESTS RESULT OUT OF RANGE REFERENCE UNITS LAB L501.0100 74-106 mg/dL Normal GLU 95 Result Comment: Please note revised GLUCOSE reference range effective 2017. LAB L501.1000 7-18 mg/dL Normal BUN 7 LAB L501.1100 0.55-1.02 mg/dL Normal CREAT,SERUM 0.60 Result Comment: The validity of the calculated GFR AND GFRAA in patients over 70 years has not been determined. Clinical correlation is essential. LAB L501.1110 >60 mL/min Normal EST GFR 111 Result Comment: Non- GFR Calc LAB L501.1115 >60 mL/min Normal EST GFR - AA 134 Result Comment: GFR Calc LAB L501.1255 ml/min Normal Estimated CRCL 90.41 LAB L501.1300 10-20 RATIO Normal BUN/CRE 11.8 LAB L501.2200 8.5-10 mg/dL Low .1 CA 8.0 LAB L501.5300 136-14 mmol/L Normal 5 NA 136 LAB L501.5600 3.5-5. mmol/L Low 1 K 3.2 LAB L501.5900 98-107 mmol/L Normal CL 98 LAB L501.6100 21.0-3 mmol/L Normal 2.0 CO2 29.0 LAB L501.6200 5-15 Normal GAP 9 Performed By: #### L500.2500, L500.3400 #### [facility] [address] [place], [place], [id number] LIVER PROFILE Collected: 07/18/2018 Status: F Source: [place] 6:20 AM [facility] REPOSITORY TYPE CODE TESTS RESULT OUT OF RANGE REFERENCE UNITS LAB L501.1500 6.4-8.2 g/dL Normal T PROT 6.9 LAB L501.1800 3.2-5.0 g/dL Normal ALB 3.3 LAB L501.1950 2.2-4.2 g/dL Normal GLOB 3.6 LAB L501.4100 15-37 U/L High AST 118 LAB L501.4305 45-117 U/L Normal ALK P 72 LAB L501.4405 13-56 U/L High ALT 91 LAB L501.4600 0.20-1.00 mg/dL Normal T BILI 0.70 LAB L501.4700 0.00-0.30 mg/dL Normal D BILI 0.23 Performed By: #### L500.2500, L500.3400 #### [facility] [address] [place], [address] MAGNESIUM Collected: 07/18/2018 Status: F Source: [place] 6:20 AM [facility] REPOSITORY TYPE CODE TESTS RESULT OUT OF RANGE REFERENCE UNITS LAB L501.5200 1.6-2.6 mg/dL Low MG 1.4 Performed By: #### L501.5200 #### [facility] [address] [place], [address] BASIC METABOLIC Collected: 07/17/2018 Status: F Source: [place] PROFILE (BMP) 6:07 AM [facility] REPOSITORY TYPE CODE TESTS RESULT OUT OF RANGE REFERENCE UNITS LAB L501.0100 74-106 mg/dL High GLU 163 Result Comment: Fasting Glucose result greater than or equal to 126 mg/dL suggests DIABETES MELLITUS per A.D.A. criteria. Please note revised GLUCOSE reference range effective 2017. LAB L501.1000 7-18 mg/dL Normal BUN 17 LAB L501.1100 0.55-1.02 mg/dL High CREAT,SERUM 1.33 Result Comment: The validity of the calculated GFR AND GFRAA in patients over 70 years has not been determined. Clinical correlation is essential. LAB L501.1110 >60 mL/min Low EST GFR 44 Result Comment: Non- GFR Calc LAB L501.1115 >60 mL/min Low EST GFR - AA 53 Result Comment: GFR Calc LAB L501.1255 ml/min Normal Estimated CRCL 40.79 LAB L501.1300 10-20 RATIO Normal BUN/CRE 12.8 LAB L501.2200 8.5-10 mg/dL Low .1 CA 7.5 LAB L501.5300 136-14 mmol/L Normal 5 NA 137 LAB L501.5600 3.5-5. mmol/L Low 1 K 3.0 LAB L501.5900 98-107 mmol/L Normal CL 100 LAB L501.6100 21.0-3 mmol/L Normal 2.0 CO2 25.0 LAB L501.6200 5-15 Normal GAP 12 Performed By: #### L500.2500 #### [facility] [address] [place], [address] CBC W/DIFF, AUTOMATED Collected: 07/17/2018 Status: F Source: [place] [facility] 6:07 AM [facility] REPOSITORY TYPE CODE TESTS RESULT OUT OF RANGE REFERENCE UNITS LAB L100.1000 4.4-11.0 K/mm3 Normal WBC 8.2 LAB L100.1200 4.2-5.4 M/mm3 Low RBC 3.14 LAB L100.1300 12.0-15.0 g/dl Low HGB 9.4 LAB L100.1400 37-47 % Low HCT 28.3 LAB L100.1500 81-99 fL Normal MCV 90.1 LAB L100.1600 27.0-32.0 pg Normal MCH 29.9 LAB L100.1700 32-36 g/gl Normal MCHC 33.2 LAB L100.1810 11.6-14.6 % High RDW CV 15.0 LAB L100.1820 35.1-43.9 fl High RDW SD 48.2 LAB L100.1900 150-450 K/mm3 Normal PLT 194 LAB L100.2000 6.2-12.0 fl Normal MPV 9.5 LAB L100.2100 47-70 % Normal NEUT% 69.8 LAB L100.2200 19-41 % Normal LY% 20.1 LAB L100.2300 0-10 % Normal MONO% 9.0 LAB L100.2400 0-5 % Normal EO% 1.0 LAB L100.2500 0-1 % Normal BASO% 0.0 LAB L100.2550 0.0-0.9 % Normal IM GRAN % 0.100 Result Comment: IG% - Immature Granulocytes (promyelocytes, myelocytes and metamyelocytes) > 1% indicates that a LEFT SHIFT is Present. LAB L100.2620 2.0-7.7 X10 3/uL Normal Absolute Neut 5.7 LAB L100.2720 0.83-4.51 X10 3/ul Normal Absolute Lymph 1.65 Performed By: #### L100.0100 #### [facility] [address] [place], [address] LACTIC ACID Collected: 07/16/2018 Status: F Source: [place] 7:26 PM [facility] REPOSITORY TYPE CODE TESTS RESULT OUT OF RANGE REFERENCE UNITS LAB L503.6005 0.4-2.0 mmol/L Normal LACTIC ACID 0.9 Performed By: #### L503.6005 #### [facility] [address] [place], [address] EMERGENCY DEPARTMENT Observed: 07/16/2018 Status: F Source: [facility] [facility] SUMMARY 5:07 PM [facility] REPOSITORY [facility] Medical Records Department [address] [place] [id number] Emergency Department Summary 07/16/18 1439 MR#: [id number] Acct: [id number] Name: TAMI PABLO Rep #: [id number] : 1960 57 From: Sherwin Khanna MD PCP: Kellie Delarosa DO Status: ADM IN - ER Visit Summary Date of Service: 07/16/18 Chief Complaint: Dehydrated History of Present Illness: The patient is a 57 F with complaints of dehydration. The patient has been unable to drink anything since yesterday. She has had nausea and vomiting. She normally drinks alcohol, 1/5 a day. Her last use was yesterday at 3 PM. She has had nausea and vomiting since then. She also has a history of COPD, bipolar disorder, depression, anxiety. Patient denies abdominal pain, chest pain, shortness of breath. Denies fevers. Denies urinary symptoms. Physical Examination: Hypertensive, tachycardic and tachypneic. Afebrile. Alert and oriented. Appears uncomfortable. No acute distress. Dry mucous membranes. Heart tachycardic but regular. Lungs clear. Abdomen soft and nontender. Skin is dry. Test Results: White count 11.4. Sodium 132, chloride 79, CO2 10, anion gap 43, glucose 135, BUN 38, creatinine 2.79. ALT 136, AST 138, lipase normal. Lactate pending. Ketones moderate. ABG pending. Alcohol negative. Emergency Department Course and Treatment: Patient was treated with IV fluids and Zofran. She had continued nausea. Patient has acute kidney injury. She is acidotic. I suspect alcoholic ketoacidosis. Glucose normal. Lactate and ABG pending. Patient has no abdominal pain, imaging was not performed. No symptoms of sepsis. No white count or fever. Patient will need continued fluids and pain and nausea control. Discussed with the hospitalist for mission. Treatment Plan: As above Disposition: Admission Impression: 1. Alcohol ketoacidosis 2. Acute kidney injury This note was generated with Watchupation software. It may contain incorrect words, spelling, and punctuation that were not noted in review of the chart prior to signing ED Disposition - Plan for ED Patient: Chief Complaint: Nausea/Vomiting Referrals: Kellie Delarosa, DO [Primary Care Provider] - What to do if you have Problems For any increased pain, shortness of breath, bleeding, nausea or vomiting, chest pain, or any unexpected problems, contact your Primary Care Provider. Call [facility] ([phone]) or report to the closest Emergency Room. Call 911 if necessary. 07/16/18 7277 <Electronically signed by Sherwin Khanna MD> Date Sherwin Khanna MD Cosigner Signature (If Indicated): Date CC: Kellie Delarosa DO CREATININE, URINE Collected: 07/16/2018 Status: F Source: [place] 4:20 PM [facility] REPOSITORY Order Comment: Has pt arrived? Y TYPE CODE TESTS RESULT OUT OF RANGE REFERENCE UNITS LAB L502.0300 NO RANGE EST. mg/dL Normal URINE 17.40 CREAT Performed By: #### L502.0300 #### [facility] [address] [place], [address] UREA NITROGEN, URINE Collected: 07/16/2018 Status: F Source: [place] [facility] [facility] 4:20 PM [facility] REPOSITORY Order Comment: Has pt arrived? Y TYPE CODE TESTS RESULT OUT OF RANGE REFERENCE UNITS LAB L502.0715 NO RANGE EST. mg/dL Normal URINE 222 UREA Performed By: #### L502.0715 #### [facility] [address] [place], [address] URINE Collected: 07/16/2018 Status: F Source: [place] [facility] 4:20 PM [facility] REPOSITORY TYPE CODE TESTS RESULT OUT OF RANGE REFERENCE UNITS LAB L3100.6600 . % No Normal EOS CT Eosinophils Seen [id number] Result Comment: <5% few or none seen Performed at: - [facility] [address] [id number] Professor Of Fine Art: Kenny Salmon PhD, Phone: [phone] Performed By: #### L3100.6600 #### [facility] (refer to report for specific site) refer to report for address and phone number HISTORY AND PHYSICAL Observed: 07/16/2018 Status: F Source: [facility] [facility] EXAM 3:19 PM [facility] REPOSITORY [facility] Medical Records Department [address] [place] [address] History and Physical 07/16/18 1509 MR#: [id number] Acct: [id number] Name: TAMI PABLO Rep #: [id number] : 1960 57 From: Tio Conley DO PCP: Kellie Delarosa DO Status: REG ER Y Location: ED Problem List (1) YADIRA (acute kidney injury) Status: Acute (2) Alcohol withdrawal delirium, acute, hyperactive Status: Acute History of Present Illness Date of Admission: 07/16/18 Chief Complaint: nausea vomiting. The patient is a 57 year old F presents with 3-day history of intractable nausea and vomiting. Patient also complains of diffuse myalgias. Patient has been undergoing a alcohol diaz, drinking 1/5 of hard alcohol per day. Patient's last drink was yesterday. Her last drink was due to the fact that she simply ran out of alcohol. Patient also has been having tremors anxiety is through the roof. Patient does endorse that she drinks alcohol to help her cope with anxiety. Patient's daughter from a ago and her mother a couple years ago and she states that she is been having trouble coping with these events. Patient has been in and out of counseling with little relief of her anxiety. Patient does take Vistaril to help her with her anxiety but she states that it is of little benefit for her. Patient significant other is present and states that when she is intoxicated she does talk to people that are not there not so much when she is not intoxicated. [] Past Medical History Medical History: Medical History (Last Reviewed 07/16/18 @ 15:12 by Tio Conley DO) Hepatotoxicity, secondary to ETOH (Acute) K70.9 Elevated ETOH level (Acute) R78.0 ETOH abuse (Acute) F10.10 Abnormal mammogram R92.8 Anxiety F41.9 Bipolar 1 disorder F31.9 COPD (chronic obstructive pulmonary disease) J44.9 History of hysterectomy Z90.710 Insomnia G47.00 Allergies Penicillins Allergy (Verified 07/16/18 11:54) Unknown Home Medications: Ambulatory Orders Medication Instructions Recorded Hydroxyzine HCl 50 mg PO BID PRN PRN 08/11/17 Surgical History: Surgical History (Last Reviewed 07/16/18 @ 15:12 by Tio Conley DO) History of Z98.891 Smoking Status: Heavy Smoker (>10/day) Tobacco Use: Cigarettes Alcohol: Heavy Drugs: None - *Family History Maternal Family History: Family History (Last Reviewed 07/16/18 @ 15:12 by Tio Conley DO) Mother Hypertension Thyroid disorder CVA (cerebral vascular accident) Sister Heart disease Review of Systems Constitutional: Reports: Anorexia, Chills. Denies: Fever Eyes: Reports: Blurred vision. Denies: Double vision HEENT: Reports: Head Aches. Denies: Sinus Congestion, Sinus Drainage Cardiovascular: Reports: Light Headedness. Denies: Chest Pain Respiratory: Reports: Cough. Denies: Shortness of Breath Gastrointestinal: Reports: Abdominal Pain, Nausea, Vomiting Genitourinary: Reports: Incontinence. Denies: Dysuria Musculoskeletal: Reports: Arm Pain, Back Pain, Leg Pain Skin: Denies: Dryness, Jaundice, Lesions Neurological: Reports: Blurred vision. Denies: Balance problems, Double vision, Change in Speech Psychiatric: Reports: Anxiety, Depression Endocrine: Reports: Heat/ Cold Intolerance. Denies: Change in Body Habitus Hematologic/ Lymphatic: Denies: Easy Bruising, Easy Bleeding, Hx of blood clot Comment: A 10 point review of systems were negative except as mentioned in the history of present illness and the other review of systems. VTE Information - Inpt Only VTE Present on Admission: No VTE Pharm Prophylaxis ordered?: Yes Patient Problems: Active and Suspected Problems (Last Reviewed 05/15/18 @ 10:31 by Enedina Maldonado) YADIRA (acute kidney injury) (Acute) Alcohol withdrawal delirium, acute, hyperactive (Acute) - Physical Exam General: Alert, No apparent distress, - - Appears older than stated age. Afebrile. HEENT: Atraumatic, PERRLA, EOMI, Normocephalic Oral: Moist Mucosa, No Gingival or Mucosal Lesions/ Ulcerations Neck: No Nodes, Thyroid Normal Size and Texture Lungs: Clear to auscultation, Normal air movement, No rhonchi, No wheeze Cardiovascular: Regular rate, Regular Rhythm, Normal S1, Normal S2, No murmurs Abdomen: Bowel Sounds Present, Soft, Non Tender, Non-Distended, No Hepato-splenomegaly Extremities: No edema Skin: No rashes, No breakdown Musculoskeletal: No Tenderness to Palpation of Joints or Extremities, No Muscle Wasting Neurological: Motor Exam 5/5 strength throughout, - - No clonus. Slight tremors of the upper extremities, left greater than right Psych/Mental Status: Agitated, Anxious Vital Signs Temp Pulse Resp BP Pulse Ox 36.2 C L 106 H 15 146/85 H 98 07/16/18 11:55 07/16/18 14:51 07/16/18 14:51 07/16/18 14:51 07/16/18 14:51 Oxygen Delivery Method Room Air Weight: 58.6 kg Body Mass Index (BMI) 22.1 Laboratory Tests Past 24 Hrs Assessment/Plan All Active Problems (Last Reviewed 05/15/18 @ 10:31 by Enedina Maldonado) YADIRA (acute kidney injury) (Acute) Alcohol withdrawal delirium, acute, hyperactive (Acute) Hepatotoxicity, secondary to ETOH (Acute) Elevated ETOH level (Acute) ETOH abuse (Acute) 1. Acute kidney injury Suspected prerenal plus minus ATN IV fluids Urine studies 2. Acute alcohol withdrawal Last drink was roughly 24 hours ago CIWA is 21. Initially informed patient nursing and the other that I would not schedule Ativan, but after getting her score, I will put her on Ativan taper plus as needed Thiamine and folate Talked the patient about seeking proper psychological help as patient does endorse that she drinks to self medicate her anxiety and depression [facility] evaluation 3. Alcoholic ketoacidosis Will give dextrose containing fluids, however will need to get patient IV thiamine first. Check magnesium and phosphorus levels 4. Anxiety/Depression complicating care needs counseling and/or medications 5. DVT prophylaxis with subcu heparin Code Visit Inpatient E AND M: [id number] Init Hosp L3 07/16/18 1519 <Electronically signed by Tio Conley DO> Date Tio Conley DO Cosigner Signature: Date (if applicable) CC: Tio Conley DO; Kellie Delarosa DO Signed BLOOD GASES BY CPS Collected: 07/16/2018 Status: F Source: [place] 3:17 PM [facility] REPOSITORY TYPE CODE TESTS RESULT OUT OF RANGE REFERENCE UNITS LAB L9000.9990 Normal BLD GAS TYPE ART LAB L9001.1010 Normal NAYA TEST NA LAB L9001.1050 O2 Normal Delivery Dev Room Air LAB L9001.1104 Normal Results To ED LAB L9001.1105 Normal Time Given 1500 LAB L9001.1110 7.35-7.45 Low pH - I-STAT 7.31 LAB L9001.1210 35-45 mmHg Low pCO2 - ISTAT 21.2 LAB L9001.1310 75-100 mmHG Normal PO2 I-STAT 85 LAB L9001.2300 22-26 mmol/L Low HCO3 ISTAT 10.6 LAB L9001.2400 -2 to +2 mmol/L Low BE ISTAT -16 LAB L9001.2415 mmol/L Normal TOTAL CO2 11 ISTAT LAB L9001.2425 95-99 % Normal SO2 ISTAT 96 Performed By: #### L9000.0800 #### [facility] Point of Care [address] [place] [address] URINALYSIS, COMPLETE Collected: 07/16/2018 Status: F Source: [place] [facility] 3:15 PM [facility] REPOSITORY Order Comment: How was Urine Obtained? ECMO SPECIALIST TO SPECIFY TYPE CODE TESTS RESULT OUT OF RANGE REFERENCE UNITS LAB L400.4050 0-5 /hpf WBC 0 Normal SEEN LAB L400.4100 0-5 /hpf 0 Normal RBC-UA SEEN LAB L400.4150 5-10 /hpf SQUAM 0 Normal EPI SEEN LAB L400.4300 None Seen /hpf 0 Normal BACTERIA SEEN LAB L400.4350 <or=2+ /hpf 0 Normal MUCUS, URINE SEEN LAB L400.3000 Yellow COLOR Normal Yellow LAB L400.3050 Clear Normal CLARITY Clear LAB L400.3200 Normal mg/dl Normal GLUCOSE, UR Normal LAB L400.3300 Negative mg/dL Normal BILIRUBIN URINE Negative LAB L400.3400 Negative mg/dl High KETONE UR 150 Result Comment: CRITICAL VALUE *H CRITICAL VALUE VERIFIED. CALLED TO [facility] 07/16/18 Rosalia6 Helen Louie. RESULTS READ BACK BY SAME . LAB L400.3465 1.002-1.030 Normal SP.GR. DIPSTX 1.010 LAB L400.3550 5.0 - 8.0 pH Normal UR 6.0 LAB L400.3600 Negative mg/dl High 30 PROT DIPSTX LAB L400.3700 Normal mg/dl Normal UROBILI Normal LAB L400.3750 Negative Normal NITRITE UR Negative LAB L400.3780 Negative /ul High 50 OCCULT BLOOD-UR LAB L400.3800 Negative /ul Normal LEUK ESTERASE Negative Performed By: #### L400.0001 #### [facility] [address] [place], [address] LACTIC ACID Collected: 07/16/2018 Status: F Source: [place] 2:58 PM [facility] REPOSITORY Order Comment: Yes/No query for Sepsis Lactate Rule Y TYPE CODE TESTS RESULT OUT OF REFERENCE UNITS RANGE LAB L503.6005 0.4-2.0 mmol/L High LACTIC ACID 2.3 Result Comment: Critical Result(s) Called at: 16:15:59 07/16/2018 by: Helen smalls Mendoza Performed By: #### L503.6005 #### [facility] [address] [place], [address] ACETONE SERUM Collected: 07/16/2018 Status: F Source: [place] 1:08 PM [facility] REPOSITORY TYPE CODE TESTS RESULT OUT OF REFERENCE UNITS RANGE LAB L501.6900 NEG High ACETONE SERUM MODERATE Performed By: #### L501.6900, L501.9100 #### [facility] [address] [place], [address] ALCOHOL, BLOOD Collected: 07/16/2018 Status: F Source: [facility] [facility] (MEDICAL)-SERUM 1:08 PM [facility] REPOSITORY TYPE CODE TESTS RESULT OUT OF RANGE REFERENCE UNITS LAB L501.9100 mg/dL Normal SERUM < 3.0 ETOH Result Comment: The serum:whole blood ethanol ratio is approximately 1.14 and varies slightly with hematocrit. Medical Alcohol reference interval and critical value in non-tolerant individuals; 50 - 100 Impairment 100 Intoxication 100 - 250 Severe Poisoning 250 - 400 Deep/possible fatal coma Performed By: #### L501.6900, L501.9100 #### [facility] [address] [place], [address] LIPASE Collected: 07/16/2018 Status: F Source: [place] 1:08 PM [facility] REPOSITORY TYPE CODE TESTS RESULT OUT OF RANGE REFERENCE UNITS LAB L501.2450 73-393 U/L Normal LIPASE 298 Performed By: #### L501.2450 #### [facility] [address] [place], [address] CBC W/DIFF, AUTOMATED Collected: 07/16/2018 Status: F Source: [place] [facility] 12:25 PM [facility] REPOSITORY TYPE CODE TESTS RESULT OUT OF RANGE REFERENCE UNITS LAB L100.1000 4.4-11.0 K/mm3 High WBC 11.4 LAB L100.1200 4.2-5.4 M/mm3 Low RBC 4.10 LAB L100.1300 12.0-15.0 g/dl Normal HGB 12.1 LAB L100.1400 37-47 % Normal HCT 37.3 LAB L100.1500 81-99 fL Normal MCV 91.0 LAB L100.1600 27.0-32.0 pg Normal MCH 29.5 LAB L100.1700 32-36 g/gl Normal MCHC 32.4 LAB L100.1810 11.6-14.6 % High RDW CV 15.9 LAB L100.1820 35.1-43.9 fl High RDW SD 53.0 LAB L100.1900 150-450 K/mm3 Normal PLT 277 LAB L100.2000 6.2-12.0 fl Normal MPV 9.2 LAB L100.2100 47-70 % High NEUT% 84.3 LAB L100.2200 19-41 % Low LY% 8.5 LAB L100.2300 0-10 % Normal MONO% 6.8 LAB L100.2400 0-5 % Normal EO% 0.0 LAB L100.2500 0-1 % Normal BASO% 0.0 LAB L100.2550 0.0-0.9 % Normal IM GRAN % 0.400 Result Comment: IG% - Immature Granulocytes (promyelocytes, myelocytes and metamyelocytes) > 1% indicates that a LEFT SHIFT is Present. LAB L100.2620 2.0-7.7 X10 3/uL High Absolute Neut 9.6 LAB L100.2720 0.83-4.51 X10 3/ul Normal Absolute Lymph 0.97 Performed By: #### L100.0100 #### [facility] [address] [place], [address] BASIC METABOLIC Collected: 07/16/2018 Status: F Source: [place] PROFILE ([facility]) 12:25 PM [facility] REPOSITORY TYPE CODE TESTS RESULT OUT OF RANGE REFERENCE UNITS LAB L501.0100 74-106 mg/dL High GLU 135 Result Comment: Fasting Glucose result greater than or equal to 126 mg/dL suggests DIABETES MELLITUS per A.D.A. criteria. Please note revised GLUCOSE reference range effective 2017. LAB L501.1000 7-18 mg/dL High BUN 38 LAB L501.1100 0.55-1.02 mg/dL High CREAT,SERUM 2.79 Result Comment: The validity of the calculated GFR AND GFRAA in patients over 70 years has not been determined. Clinical correlation is essential. LAB L501.1110 >60 mL/min Low EST GFR 19 Result Comment: Non- GFR Calc LAB L501.1115 >60 mL/min Low EST GFR - AA 23 Result Comment: GFR Calc LAB L501.1255 ml/min Normal Estimated CRCL 19.44 LAB L501.1300 10-20 RATIO Normal BUN/CRE 13.6 LAB L501.2200 8.5-10 mg/dL Normal .1 CA 8.8 LAB L501.5300 136-14 mmol/L Low 5 NA 132 LAB L501.5600 3.5-5. mmol/L Normal 1 K 3.9 LAB L501.5900 98-107 mmol/L Low CL 79 LAB L501.6100 21.0-3 mmol/L Low 2.0 CO2 10.0 LAB L501.6200 5-15 High GAP 43 Performed By: #### L500.2500 #### [facility] [address] [place], [place], [id number] LIVER PROFILE Collected: 07/16/2018 Status: F Source: [place] [facility] 12:25 PM [facility] REPOSITORY TYPE CODE TESTS RESULT OUT OF RANGE REFERENCE UNITS LAB L501.1500 6.4-8.2 g/dL High T PROT 8.5 LAB L501.1800 3.2-5.0 g/dL Normal ALB 4.5 LAB L501.1950 2.2-4.2 g/dL Normal GLOB 4.0 LAB L501.4100 15-37 U/L High AST 138 LAB L501.4305 45-117 U/L Normal ALK P 92 LAB L501.4405 13-56 U/L High ALT 136 LAB L501.4600 0.20-1.00 mg/dL Normal T BILI 0.90 LAB L501.4700 0.00-0.30 mg/dL High D BILI 0.32 Performed By: #### L500.3400 #### [facility] [address] [place], [address] PHOSPHORUS Collected: 07/16/2018 Status: F Source: [place] [facility] 12:25 PM [facility] REPOSITORY TYPE CODE TESTS RESULT OUT OF RANGE REFERENCE UNITS LAB L501.2300 2.5-4.9 mg/dL High PHOS 6.6 Performed By: #### L501.2300, L501.5200 #### [facility] [address] [place], [address] MAGNESIUM Collected: 07/16/2018 Status: F Source: [facility] [facility] [facility] 12:25 PM [facility] REPOSITORY TYPE CODE TESTS RESULT OUT OF RANGE REFERENCE UNITS LAB L501.5200 1.6-2.6 mg/dL Normal MG 1.8 Performed By: #### L501.2300, L501.5200 #### [facility] [address] [place], [address] OPERATIVE REPORT Observed: 06/20/2018 Status: F Source: [place] [facility] 12:59 PM [facility] REPOSITORY [facility] Medical Records Department [address] [place] [address] Operative Report 06/18/18 1440 MR#: [id number] Acct: [id number] Name: TAMI PABLO Rep #: [id number] : 1960 57 From: Mary Miranda MD PCP: Kellie Delarosa DO Status: [facility] Y Location: [facility] Report of Operation Date of Procedure: 06/18/18 Pre-Operative Diagnosis: Right breast atypical ductal hyperplasia Post-Operative Diagnosis: Same Surgery/Procedure Performed:: Right breast needle localization in radiology, excisional breast biopsy in OR plastic injection mold maker: Fabienne Hodge Type of Anesthesia:: General/Supplemental Anesthesiologist: Guicho White Special Medications: Clindamycin 600 mg IV x1 Specimen's removed: Right breast lumpectomy Estimated Blood Loss (mL): < 10 cc Fluids Replaced: 400 cc Description of Procedure: Patient was brought to the mammography suite. Patient was placed prone on the stereotactic table. The previously placed clip was localized. O'ol Blue needle localization wire was used and placed after skin was prepped and draped in usual sterile fashion. Local anesthesia 1% lidocaine was used at the skin. Initial localization studies were taken at 15 degree angles. Confirmation of target confirmed. Wire was gently advanced as the needle was withdrawn. Again additional localization studies were taken. Patient also underwent 2 view mammography. Patient was brought to the operating room placed supine on the operating table. A timeout was completed verifying correct patient, site, procedure, special, prior to beginning procedure. Localization studies were reviewed. General anesthesia was induced. The right breast were prepped draped in usual sterile fashion. Curvilinear incision was made with a 15 blade scalpel overlying the wire. Electrocautery was used to dissect following the wire in order to include normal tissue and the clip as well. Hemostasis was achieved. The right breast lumpectomy was sent for x-ray. The wire and clip were confirmed. The cavity was irrigated with sterile water. The space was closed with the interrupted 3-0 Vicryl. The incision was closed with subdermal sutures of 3-0 Vicryl interrupted. The skin was closed with a running suture of 4-0 Monocryl. Steri-Strips were placed along with a gauze and OpSite. Gauze fluffs were also placed. Patient was extubated. Patient tolerated procedure well and was taken to the postanesthesia care unit in stable condition. - Complications none 06/20/18 1259 <Electronically signed by Mary Miranda MD> Date Mary Miranda MD CC: Kellie Delarosa DO; Mary Miranda MD Signed DISCHARGE INSTRUCTION Observed: 06/18/2018 Status: F Source: [facility] [facility] [facility] 2:49 PM [facility] REPOSITORY [facility] Medical Records Department [address] [place] [address] Instructions for Home/Discharge Instructions 06/18/18 1447 MR#: [id number] Acct: [id number] Name: TAMI PABLO Rep #: [id number] : 1960 57 From: Mary Miranda MD PCP: Kellie Delarosa DO Status: REG SDC Discharge Diet: Light diet - advance as tolerated Discharge Activity: May not drive while taking narcotic pain medications. May shower in (days): 1 Lifting Restrictions: no lifting > 10 lb on right x 1 week Call your doctor if your incision/area has: Continuous Slow Oozing, Sudden Increased Bleeding, Increased Pain/ Swelling, Increased Redness, Foul Smelling Discharge, Swelling at the incision site Call your doctor if you observe: Fever of 101 or Higher Remove Dressing in (days):: 2 Allergies/Adverse Reactions: Allergies Penicillins Allergy (Verified 05/15/18 10:31) Unknown Medications to take at Discharge Hydroxyzine HCl 50 mg PO BID PRN PRN 08/11/17 Lorazepam [Ativan] 0.5 mg PO BID PRN PRN #20 tab 08/14/17 albuterol sulfate 2.5 mg/3 mL (0.083 %) solution for nebulization 2.5 mg INHALATION Q4H PRN 04/04/18 loratadine 10 mg tablet 10 mg PO DAILY 04/04/18 omeprazole 20 mg capsule,delayed release 20 mg PO BID cap 04/04/18 Hydrochlorothiazide 12.5 mg PO DAILY 06/15/18 Ibuprofen 600 mg PO 4X/DAY 06/15/18 Sucralfate [Carafate] 1 gm PO 4X/DAY 06/15/18 Oxycodone HCl/Acetaminophen [Percocet 5/325] 1 tablet PO Q6H PRN PRN 2 Days #5 tablet 06/18/18 The following prescriptions were given: Oxycodone HCl/Acetaminophen [Percocet 5/325] 1 tablet PO Q6H PRN PRN 2 Days #5 tablet PRN Reason: Pain Primary Care Physician: Kellie Delarosa DO [Primary Care Provider] - Test Results: Test results from this visit will be discussed in further detail at your follow-up appointment, if applicable. Please Follow Up With: Mary Miranda MD - After 5:00 and on weekends call [phone] with any concerns When: Call the office for f/u appt in 2wks. Will call AND contact with path results Proposed Discharge Date: 06/18/18 06/18/18 8696 <Electronically signed by Mary Miranda MD> Date Mary Miranda MD CC: Kellie Washington BURNS BREAST BIOPSY Observed: 06/18/2018 Status: F Source: [facility] SPECIMEN 11:58 AM [facility] REPOSITORY [facility] Imaging Services [address] [place] [address] Breast Biopsy Specimen MR#: [id number] Acct: [id number] Name: TAMI PABLO Rep #: [id number] : 1960 F 57 From: Marty Cam MD PCP: Kellie Delarosa DO Status: [facility] Study: Breast Biopsy Specimen Date of Exam: 06/18/18 Exam# [id number] Ordering Dr: Mary Miranda MD SURGICAL BREAST SPECIMEN RADIOGRAPH CLINICAL: Document presence of tissue clip marker in biopsy specimen. FINDINGS: Specimen shows presence of tissue clip marker. Electronically Signed: Marty Cam MD at 14:45 EST Tel [phone], Service support , BI/Breast Biopsy Specimen CC: Kellie Delarosa DO; Mary Miranda MD Audio Visual Manager: Signed BREAST BIOPSY Observed: 06/18/2018 Status: F Source: [facility] ([facility] SITE) 12:00 AM [facility] REPOSITORY Patient: TAMI PABLO : 1960 (57/F) Acct Num: [id number] Phys: Mary Miranda MD Unit Num: [id number] Loc: [facility] Specimen: [id number] Received: 06/18/18 407 Spec Type: BREAST BX TISSUES 1 TISSUES: Right breast, NOS COMMENT Please make reference to previous specimen ([id number]) right breast, upper outer quadrant, stereotactic core biopsy with diagnosis of fibrocystic changes, adenosis and intraductal hyperplasia with focal atypia. Case has been reviewed in consultation with Dr. Singleton who concurs with the above diagnosis. IDC:AM GROSS DESCRIPTION Received in fixative is one container labeled with the patient's name and designated right breast with needle localization. The specimen is oriented as long suture - lateral and short suture - superior. The specimen consists of a piece of fibroadipose tissue with needle localization measuring 4 x 3 x 2 cm. The specimen is inked as follows: anterior margin - yellow, posterior margin - black, superior margin - blue, inferior margin - green, medial margin - red and lateral margin - orange. Serial sections reveal medina-yellow adipose cut surfaces mixed with medina-white fibrous area. No obvious mass lesion is identified. The entire specimen is submitted from medial to lateral margins in nine cassettes. Sections will be submitted after additional fixation. / ROGELIO:darin 06/19/18 TC:5 CPT: 86561 HEADER OPERATION: Right breast NL with excisional biopsy PRE-OP DIAGNOSIS: Right breast ADH TISSUE SUBMITTED: Right breast biopsy, long suture - lateral, short suture - superior at 1431 MICROSCOPIC DESCRIPTION Slides are reviewed. MICROSCOPIC DIAGNOSIS Right breast, needle localization and excisional biopsy: Fibrocystic changes, adenosis and intraductal hyperplasia with focal atypia. Focal microcalcifications. Focal changes consistent with previous biopsy site. Negative for malignancy. SJ:darin 06/21/18 Signed Dustin Mahoney 06/22/18 <signature on file> Performed By: #### PBRBX #### [facility] [address] [place], [address] OPERATIVE REPORT Observed: 05/24/2018 Status: F Source: [facility] 9:12 AM [facility] REPOSITORY [facility] Medical Records Department [address] [place] [address] Operative Report 04/30/18 1137 MR#: [id number] Acct: [id number] Name: TAMI PABLO Rep #: [id number] : 1960 57 From: Mary Miranda MD PCP: Kellie Delarosa DO Status: REG CLI Y Location: [facility] ADDENDUM by Mary Miranda MD on 05/24/18 at 0912 Code Visit Correction the biopsy was on the RIGHT breast not left 05/24/18 0912 <Electronically signed by Mary Miranda MD> Date Mary Miranda MD cc: Kellie Delarosa ; Mary Miranda MD * Signed Operative Report Date of Procedure: 04/30/18 Procedure: Stereotactic core biopsy Indications: 57 year-old female with cluster of microcalcifications in the lateral/central of the left breast. Risk benefits were discussed the patient and she elected to proceed with stereotactic core biopsy with clip placement Description of procedure: Patient was brought into the mammography suite and laid prone on the stereotactic table. A timeout was completed verifying correct patient, procedure, site, specially, prior to beginning procedure. The left breast was prepped and draped in usual sterile fashion and using local anesthesia was obtained with 1% lidocaine. Patient's left breast was positioned and placed into compression. Initial film showed calcifications are in the center of the compression paddle. 15 views were then taken. The calcifications were localized. The left breast was prepped draped in usual sterile fashion. An 8-gauge mammotome was set up according to the digital coordinates. The tract of the mammotome was anesthetized with local anesthesia and an incision was made with the 11 blade scalpel at the entry site. The mammotome was advanced to the prefire state. Pre-prior films were checked and verified. The mammotome was fired. Post fire films were also checked and verified. Biopsies were taken from 12:00 to 11:00. The specimen was x-rayed and almost all the calcifications were within the specimen. Mammotome clip was placed at the 12 o'clock position. The mammotome was removed from the breast. An additional films were taken which showed all calcifications were removed and a clip was in place. Pressure was held for hemostasis. Once hemostasis was assured the wound was dressed with Steri-Strips and OpSite. The patient tolerated the procedure well and was discharged from the mammography suite good condition. complications: none 04/30/18 1139 <Electronically signed by Mary Miranda MD> Date Mary Miranda MD CC: Kellie Delarosa DO; Mary Miranda MD Signed SURGERY VISIT REPORT Observed: 05/18/2018 Status: F Source: [facility] 11:47 AM [facility] REPOSITORY [facility] [address] [place] [address] OFFICE VISIT Date of Service: 05/15/18 MR#: [id number] Acct: [id number] Name: TAMI PABLO Rep #: [id number] : 1960 Provider: Mary Miranda MD Age/Sex: 57/F Location: [facility] Status: Signed Intake Intake Visit Reasons: Test Results Chief Complaint: ALCOHOL WITHDRAWAL Test Desk Operator Required: No Is patient in pain?: No Allergies Penicillins Allergy (Verified 05/15/18 10:31) Unknown Medications Hydroxyzine HCl 50 mg PO BID PRN PRN 08/11/17 [History Confirmed 05/15/18] Lorazepam [Ativan] 0.5 mg PO BID PRN PRN #20 tab 08/14/17 [Rx Confirmed 05/15/18] albuterol sulfate 2.5 mg/3 mL (0.083 %) solution for nebulization 2.5 mg INHALATION Q4H PRN 04/04/18 [History Confirmed 05/15/18] loratadine 10 mg tablet 10 mg PO DAILY 04/04/18 [History Confirmed 05/15/18] omeprazole 20 mg capsule,delayed release 20 mg PO BID cap 04/04/18 [History Confirmed 05/15/18] PFSH Medical History Hepatotoxicity, secondary to ETOH (Acute) Elevated ETOH level (Acute) ETOH abuse (Acute) Abnormal mammogram (Acute) Anxiety (Acute) Bipolar 1 disorder (Acute) COPD (chronic obstructive pulmonary disease) (Acute) History of hysterectomy (Acute) Insomnia (Acute) Surgical History History of (Acute) Family History Mother Hypertension Thyroid disorder CVA (cerebral vascular accident) Sister Heart disease Social History Smoking Status: Current some day smoker substance use type: does not use HPI HPI HPI: TAMI PABLO, is a 57 F who presents to the office today for discussion of her right breast stereotactic biopsy pathology which was consistent with atypical ductal hyperplasia, fibrocystic, and adenosis. Exam Const General: cooperative, comfortable, no acute distress Chest Other: Right breast biopsy site well-healed no signs of infection Assessment AND Plan Problems 1. 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 She will call to schedule when she is feeling better. We will plan for right breast needle localization in mammography and then right breast needle localization excisional biopsy. Discussed the procedure and risks including but not limited to bleeding, hematoma/seroma, infection, need for further surgery for margins or for lymph nodes if invasive cancer is found, and anesthesia. Patient no further questions at this time. Mary Miranda M.D. Pager: [phone] [facility] [address] [place] [address], [address] [place] [address] Office: 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 Case has been reviewed in consultation with Dr. Singleton who concurs with the above diagnosis. IDC:AM GROSS DESCRIPTION Received in fixative is one container labeled with the patient's name and designated right breast. The specimen consists of multiple elongated fragments of medina-yellow fibroadipose tissue that in aggregate measure 5 x 3 x 0.8 cm. The entire specimen is submitted in four cassettes. / SJ:darin 04/30/18 TC:5 CPT: 31522 HEADER OPERATION: Right breast stereotactic biopsy PRE-OP DIAGNOSIS: Microcalcifications UOQ TISSUE SUBMITTED: Right breast ISCHEMIC TIME: 3 minutes FIXATION TIME: 8.5 hours MICROSCOPIC DESCRIPTION Slides are reviewed. MICROSCOPIC DIAGNOSIS Right breast, upper outer quadrant, stereotactic core biopsy: Fibrocystic changes, adenosis and intraductal hyperplasia with focal atypia. Frequent microcalcifications. Negative for malignancy. SJ:darin 05/01/18 Signed Dustin Mahoney 05/02/18 <signature on file> Performed By: #### PBRBX #### [facility] [address] [place], [place] [address], [address] SURGERY VISIT REPORT Observed: 04/04/2018 Status: F Source: [facility] 3:57 PM [facility] REPOSITORY [facility] [address] [place] [address] OFFICE VISIT Date of Service: 04/04/18 MR#: [id number] Acct: [id number] Name: TMAI PABLO Rep #: [id number] : 1960 Provider: Mary Miranda MD Age/Sex: 57/F Location: [facility] Status: Signed Intake Vital Signs04/04/18 Height 5 ft 4 in 04/04/18 Weight: 137 lb Intake Visit Reasons: Rt Breast Birads 4 Mammo 01/01 [facility] bringng disc Chief Complaint: ALCOHOL WITHDRAWAL Test Desk Operator Required: No Is patient in pain?: No Allergies Penicillins Allergy (Verified 04/04/18 14:29) Unknown Medications Hydroxyzine HCl 50 mg PO BID PRN PRN 08/11/17 [History Confirmed 04/04/18] Lorazepam [Ativan] 0.5 mg PO BID PRN PRN #20 tab 08/14/17 [Rx Confirmed 04/04/18] albuterol sulfate 2.5 mg/3 mL (0.083 %) solution for nebulization 2.5 mg INHALATION Q4H PRN 04/04/18 [History Confirmed 04/04/18] loratadine 10 mg tablet 10 mg PO DAILY 04/04/18 [History Confirmed 04/04/18] omeprazole 20 mg capsule,delayed release 20 mg PO BID cap 04/04/18 [History Confirmed 04/04/18] PFSH Medical History Hepatotoxicity, secondary to ETOH (Acute) Elevated ETOH level (Acute) ETOH abuse (Acute) Abnormal mammogram (Acute) Anxiety (Acute) Bipolar 1 disorder (Acute) COPD (chronic obstructive pulmonary disease) (Acute) Insomnia (Acute) Surgical History History of (Acute) History of hysterectomy (Acute) Family History Mother Hypertension Thyroid disorder CVA (cerebral vascular accident) Sister Heart disease Social History Smoking Status: Current some day smoker substance use type: does not use HPI HPI HPI: TAMI PABLO, is a 57 F who presents to the office today for microcalcifications of her right breast. Patient had her mammography in December 2017 when she was at [facility] and alcohol rehab. Patient has been sober since August 17, 2017. Patient denies noticing any lumps or bumps in either 1 of her breast. She is unsure when her last mammography was she cannot remember she thinks she may have had one done at some point at [facility] may have had or so in the past but due to her alcoholism she states her memory is not as good. Patient's mammography did show microcalcifications of the right breast there are also some questions of nodules in the left breast which on ultrasound shown to be intra-mammary lymph nodes and diagnostic mammogram did not still showed the focal asymmetry of the left breast. Conchita model Age: 57 Age of menses: 13 Age at time of first child: 27 Family history of breast cancer: No immediate family however her maternal grandma was diagnosed in her 60s and she believes her first cousin on her mom's side may have been diagnosed in her 30s she is unsure but will check Number of past breast biopsies: 0 Number breast biopsy showing atypical hyperplasia: N/A Race/ethnicity: 5 year risk 1.4 % (average of 1.5 %) Lifetime risk 8.9 % (average 10%) ROS General General: Yes fatigue; no weight change, appetite, colon cancer, breast cancer or weakness HEENT HEENT: No difficulty swallowing, eye injury, eye surgery, swollen glands or hoarseness Endo Endocrine: No thyroid disease, diabetes mellitus, thyroid cancer, Hair loss, heat intolerance or cold intolerance Skin Skin: No rash or changing moles Breast Breast: Yes abnormal mammogram; no left breast lump, right breast lump, nipple discharge, breast pain, abnormal US or breast enlargement Musc Musculoskeletal: Yes back problems and arthritis; no rheumatoid arthritis, gout or joint pain Cardio Cardiovascular: No murmur, pacemaker, heart disease, atrial fibrillation, high blood pressure, heart attack, heart stent, palpitations, shortness of breat with exertion or chest pain Psych Psychiatric: Yes depression and anxiety; no hearing voices Resp Respiratory: Yes shortness of breath, Yes sleep apnea, Yes cough, Yes COPD, Yes asthma, No emphysema, No wheezing Gastro Gastrointestinal: No abdominal pain, No nausea or vomiting, No diarrhea, No constipation, No blood in stool, Yes acid reflux, No hemorrhoids, No ulcers, No gallbladder problem, No black,tarry stools Tashi Hematologic: No blood thinners, No blood disorders, No bleeding, Yes anemia, No blood clots Neuro Neurologic: No system reviewed and no additional complaints, except as docu, No as per HPI, No abnormal walking, No abnormal hearing, No abnormal movements, No abnormal speech, No behavioral changes, No burning sensations, No confusion, No seizure-like activity, No unsteadiness, No dizziness, No localized weakness, No frequent falls, No headache(s), No lack of coordination, No loss of vision, No memory loss, No numbness, No other visual disturbances, No radiating pain, No restless legs, No sensory deficit, No fainting, No tingling, No tremor(s), No weakness, No other Exam Const General: cooperative, comfortable, no acute distress HENMT Head: atraumatic Chest Breast Palpation: No nipple discharge Other: Inspection: Breast symmetric bilaterally, no masses or lumps appreciated in bilateral breasts, no change the overlying skin or nipple discharge. No supraclavicular or axillary adenopathy bilaterally. Cardio Heart Sounds: no murmurs GI Inspection: non-distended Palpation: soft, no guarding Assessment AND Plan Problems 1. Microcalcification of right breast on mammography R92.0 Plan I have discussed above with the patient. I have recommended stereotactic guided needle core breast biopsy with vacuum assistance. I have described the procedure to the patient and I discussed patient that we may need to target 2 different areas which are near each other. A marker clip will be placed to identify the location. Patient has been counseled to the risks/benefits of the procedure. I have explained the risks of the surgery, including but not limited to: infection, bleeding, injury to any blood vessels/nerves, scar tissue, missing the lesion, further surgery, etc. - the patient understands and agrees to proceed. I have answered all of the patient's questions to her satisfaction and she has no further questions. Mary Miranda M.D. Pager: [phone] [facility] [address] [place] [address], [address] [place] [address] Office: [phone] Coding Level of Care Code Off vis,new,level 4 Diagnoses Microcalcification of right breast on mammography R92.0 Time Spent (min) 45 04/04/18 9917 <Electronically signed by Mary Miranda MD> Date Mary Miranda MD Cosigner Signature: Date (if applicable) CC: Kellie Delarosa DO CBC Collected: 02/14/2018 Status: F Source: [facility] 5:57 AM [facility] ([place]) REPOSITORY TYPE CODE TESTS RESULT OUT OF REFERENCE UNITS RANGE LAB WBC 3.6-11.0 /cmm WBC High COUNT 14.6 LAB RBC 4.0-5.4 /cmm Low RBC COUNT 3.14 LAB HGB 12.0-16.0 G/DL Low HEMOGLOBIN 9.3 LAB HCT 36.0-48.0 % Low HEMATOCRIT 27.6 LAB MCV 80.0-100.0 FL MCV 87.9 LAB MCH 26.0-35.0 PG MCH 29.6 LAB MCHC 27.0-37.0 G/DL MCHC 33.6 LAB RDW 11.5-14.5 % RDW High 14.9 LAB PLTC 130.0-400.0 /cmm PLATELET COUNT 209 LAB MPV 7.4-11.0 FL MPV 7.4 LAB DTYPE % DTYPE AUTO DIFF LAB NEUT 37.0-75.0 % High NEUTROPHIL 79.6 LAB LYMP 20.0-55.0 % Low LYMPHOCYTE 13.3 LAB AOMONO 0.0-10.0 % MONOCYTE 7.0 LAB EOS 0.0-11.0 % EOSINOPHIL 0.0 LAB BASO 0.0-2.0 % BASOPHIL 0.1 LAB ANC 1.0-7.0 x10 ABSOLUTE High NEUTROPHIL COUNT 11.6 LAB ALYM X10 ABSOLUTE LYMPHOCYTE 1.90 LAB AMONO X10 ABSOLUTE MONOCYTE 1.0 LAB AEO X10 ABSOLUTE EOS 0.00 LAB ABAS X10 ABSOLUTE BAS 0.0 Result Comment: Testing performed at [place] [id number] Performed By: #### ACBC #### Testing performed at [address] [address] CBC Collected: 02/02/2018 Status: F Source: [facility] 10:29 AM [facility] ([place]) REPOSITORY TYPE CODE TESTS RESULT OUT OF REFERENCE UNITS RANGE LAB WBC 3.6-11.0 /cmm WBC COUNT 8.2 LAB RBC 4.0-5.4 /cmm Low RBC COUNT 3.87 LAB HGB 12.0-16.0 G/DL Low HEMOGLOBIN 11.5 LAB HCT 36.0-48.0 % Low HEMATOCRIT 34.2 LAB MCV 80.0-100.0 FL MCV 88.3 LAB MCH 26.0-35.0 PG MCH 29.8 LAB MCHC 27.0-37.0 G/DL MCHC 33.8 LAB RDW 11.5-14.5 % RDW High 15.0 LAB PLTC 130.0-400.0 /cmm PLATELET COUNT 367 LAB MPV 7.4-11.0 FL Low MPV 6.9 LAB DTYPE % DTYPE AUTO DIFF LAB NEUT 37.0-75.0 % NEUTROPHIL 56.9 LAB LYMP 20.0-55.0 % LYMPHOCYTE 30.5 LAB AOMONO 0.0-10.0 % MONOCYTE High 10.7 LAB EOS 0.0-11.0 % EOSINOPHIL 1.8 LAB BASO 0.0-2.0 % BASOPHIL 0.1 LAB ANC 1.0-7.0 x10 ABSOLUTE NEUTROPHIL COUNT 4.7 LAB ALYM X10 ABSOLUTE LYMPHOCYTE 2.50 LAB AMONO X10 ABSOLUTE MONOCYTE 0.9 LAB AEO X10 ABSOLUTE EOS 0.10 LAB ABAS X10 ABSOLUTE BAS 0.0 Result Comment: Testing performed at [place] [address] Performed By: #### ACBC, BNP #### [place] [address] B TYPE NATRIURETIC Collected: 02/02/2018 Status: F Source: [facility] 10:29 AM [facility] [place] REPOSITORY TYPE CODE TESTS RESULT OUT OF REFERENCE UNITS RANGE LAB BNP 0-100 pg/mL B TYPE NATRIURETIC 9 PEPTIDE Result Comment: Testing performed at [place] [address] Performed By: #### ACBC, BNP #### [place] [address] Observed: 02/02/2018 Status: F Source: [facility] TYPE AND SCREEN 10:29 AM [facility] [place] CROSSMATCH CONVERTIBLE REPOSITORY WORKUP EXPIRES 02/16/2018 ABO/RH(D) O NEGATIVE ANTIBODY SCREEN NEGATIVE ARM BAND NUMBER [id number] Testing performed at [place] [address] Performed By: #### TSCC #### [place] [address] EMERGENCY DEPARTMENT Observed: 01/19/2018 Status: F Source: [facility] SUMMARY 5:13 AM [facility] REPOSITORY [facility] Medical Records Department [address] [place] [address] Emergency Department Summary 01/19/18 0510 MR#: [id number] Acct: [id number] Name: TAMI PABLO Rep #: [id number] : 1960 57 From: Agustin Vera MD PCP: Kellie Delarosa DO Status: REG ER - ER Visit Summary Date of Service: 01/19/18 Chief Complaint: Alcohol intoxication History of Present Illness: The patient is a 57 F who was brought to the ER by police for alcohol intoxication. She is an alcoholic. She states she drank a liter of vodka prior to coming in here today. The son called stating that he cannot care for her in her current state and she could not stay with him. The patient was arrested for the same last night and was in penitentiary overnight. After leaving she began to drink again. She has no specific complaints at this time. Physical Examination: Heart rate 102 blood pressure 170/104 vitals otherwise unremarkable Patient does appear clinically intoxicated. She is oriented to self age and place No focal or lateralizing neurological deficits Heart is regular rhythm slightly tachycardic Lungs are clear Abdomen soft Test Results: Not indicated Emergency Department Course and Treatment: Patient was brought by police because they felt that she was too intoxicated for penitentiary at the time and needed monitoring. I do not believe any medical workup is necessary. Patient was observed here in the emergency department. On re-eval and she was able to walk unassisted. She will be discharged in police custody. Treatment Plan: [] Disposition: Discharge Impression: Alcohol intoxication This note was generated with [employer] dictation software. It may contain incorrect words, spelling, and punctuation that were not noted in review of the chart prior to signing ED Disposition - Plan for ED Patient: Chief Complaint: ETOH Intox Referrals: Kellie Delarosa DO [Primary Care Provider] - What to do if you have Problems For any increased pain, shortness of breath, bleeding, nausea or vomiting, chest pain, or any unexpected problems, contact your Primary Care Provider. Call [facility] ([phone]) or report to the closest Emergency Room. Call 911 if necessary. 01/19/18 0513 <Electronically signed by Agustin Vera MD> Date Agustin Vera MD Cosigner Signature (If Indicated): Date CC: Kellie Delarosa DO DISCHARGE INSTRUCTION Observed: 01/19/2018 Status: F Source: [facility] 5:13 AM [facility] REPOSITORY [facility] Medical Records Department [address] [place] [address] Discharge Instruction 01/19/18511 MR#: [id number] Acct: [id number] Name: TAMI PABLO Rep #: [id number] : 1960 57 From: Agustin Vera MD PCP: Kellie Delarosa DO Status: REG ER ED Disposition - Plan for ED Patient: Chief Complaint: ETOH Intox Instructions: ED Alcohol Intoxication Referrals: Kellie Delarosa DO [Primary Care Provider] - What to do if you have Problems For any increased pain, shortness of breath, bleeding, nausea or vomiting, chest pain, or any unexpected problems, contact your Primary Care Provider. Call [facility] ([phone]) or report to the closest Emergency Room. Call 911 if necessary. 01/19/18512 <Electronically signed by Agustin Vera MD> Date Agustin Vera MD Cosigner Signature (If Indicated): Date CC: Kellie Delarosa DO US BREAST COMPLETE Observed: 12/28/2017 Status: F Source: [facility] UNILATERAL LEFT 11:14 AM SYSTEM ([place]) REPOSITORY PROCEDURE: DIAGNOSTIC DIGITAL BILATERAL MAMMOGRAPHY AND LEFT BREAST ULTRASOUND. [id number] COMPARISON STUDIES: Bilateral new baseline examination 11/28/2017 EXAM DATE AND TIME: 12/28/2017 10:35 AM INDICATION: 57-year-old asymptomatic female recalled from her new bilateral baseline examination for an indeterminate right breast cluster of calcifications and indeterminate left breast focal asymmetry and left breast mass. Family history breast cancer involving patient's maternal aunt. TECHNIQUE: ML and spot compression CC and MLO views of bilateral breasts. Spot magnification right CC and ML views were also obtained. Computer-aided diagnosis was utilized. Targeted sonography of the left breast was performed using a linear transducer. TISSUE DENSITY: There are scattered fibroglandular densities (25% - 50%). MAMMOGRAPHIC FINDINGS: Cluster of microcalcifications within the right breast are located at approximately the 9:00 o'clock position and are located approximately 5 cm from the nipple. These demonstrate punctate and amorphous morphology. No associated mass or architectural distortion. These span a distance of approximately 1.3 cm AP dimension. No layering on ML spot magnification view. These are at low suspicion for malignancy and further assessment with stereotactic breast biopsy should be considered. Focal asymmetry within the left breast at approximately the 12:00 o'clock position, 4-5 cm from the nipple, partially effaces on spot compression views and appears nonmasslike on the ML view. This may relate to normal overlap of fibroglandular tissue and should be further assessed with ultrasound. Ovoid mass within the inner left breast, approximately 4 cm from the nipple, measures approximately 5 mm and has suggestion of the central fatty hilum and is closely associated with an adjacent vessel. This is most suggestive of a small intramammary lymph node. SONOGRAPHIC FINDINGS: Targeted sonography of the left breast at the 12:00 o'clock position, 4 cm from the nipple, demonstrates dense fibroglandular tissue with tiny benign cyst measuring 3-4 mm. This likely accounts for the abnormality seen on mammography. Targeted sonography of the left breast at the 10:00 o'clock position, 4-5 cm to the nipple, demonstrates a circumscribed, ovoid, hypoechoic structure oriented parallel to the cutaneous surface with central fatty hilum and feeding vessels. This measures 4 x 4 x 6 mm and is most compatible with a benign intramammary lymph node. This corresponds to the mammographic abnormality. OVERALL IMPRESSION: Cluster microcalcifications within the right breast, 5 cm from the nipple, are as described. These are at low suspicion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
== END ==
PROVIDERS: Family Provider Family Medicine; PCP Family Medicine; Referring Provider Family Medicine; Visit Provider Family Medicine
DX: E87.6 Hypokalemia (principal)
CPT/HCPCS: 36415; 80048; 83735

== ENCOUNTER → 2018-09-10 09:09 | Outpatient (CLI) | payer MEDICAID, SELFPAY ==
[2018-07-16 15:43] VITALS: BMI 22.9
[2018-09-10 10:38] LABS: Anion Gap 9 (5-15); BUN 19 mg/dL (7-18); BUN/Creat Ratio 13.1 RATIO (10-20); Chloride 99 mmol/L (98-107); Creatinine, Serum 1.45 mg/dL (0.55-1.02); EST Glomerular Filtration Rate 40 mL/min (>60); Est Glom Filt Rate - Afr Amer 48 mL/min (>60); Glucose 101 mg/dL (74-106); Potassium 3.2 mmol/L (3.5-5.1); Sodium Level 135 mmol/L (136-145)
== END ==
PROVIDERS: Family Provider Family Medicine; PCP Family Medicine; Referring Provider Family Medicine; Visit Provider Family Medicine
DX: E87.6 Hypokalemia (principal)
CPT/HCPCS: 36415; 80048

== ENCOUNTER → 2018-11-01 | Outpatient (CLI) | payer MEDICAID, SELFPAY ==
[2018-07-16 15:43] VITALS: BMI 22.9
== END | disposition home or self-care (01) ==
LOC: LAB.FUTURE 11:09
PROVIDERS: Family Provider Family Medicine; PCP Family Medicine; Visit Provider Family Medicine
DX: Z01.84 Encounter for antibody response examination (principal)

== ENCOUNTER → 2018-11-01 | Outpatient (CLI) | payer MEDICAID, SELFPAY ==
[2018-07-16 15:43] VITALS: BMI 22.9
[2018-11-01 13:08] LABS: Rubella IgG > 500.0 IU/mL
[2018-11-03 15:13] LABS: Mumps Antibody,IgG > 300.0 AU/mL (Immune >10.9); Rubeola IgG Ab > 300.0 AU/mL (Immune >29.9)
== END | disposition home or self-care (01) ==
LOC: LAB.FUTURE 11-14 15:10
PROVIDERS: Family Provider Family Medicine; PCP Family Medicine; Visit Provider Family Medicine
DX: E87.6 Hypokalemia (principal)
CPT/HCPCS: 86735; 86762; 86765

== ENCOUNTER 2018-11-16 12:37 | Inpatient (IN) | payer MEDICAID, SELFPAY ==
[2018-07-16 15:43] VITALS: BMI 22.9
[2018-11-16] VITALS (11 sets, daily range): BP systolic 108–146; BP diastolic 66–86; PULSE 104–112; RESP 14–20; TEMP 36.7–37.7; O2SAT 94–97; BMI 22.1; BMI 21.2
[2018-11-16] MEDS: 0.9% Normal Saline 1,000 ML 1000 ML IV ×2 (13:24→14:30)
[2018-11-16] MEDS: LORazepam 2 MG/ML Syringe 1 MG IV (13:25)
[2018-11-16] MEDS: proMETHazine 25 MG/ML Syringe 12.5 MG IV (13:25)
[2018-11-16 13:43] LABS: Absolute Lymphocyte Count 1.11 X10^3/ul (0.83-4.51); Absolute Neutrophil Count 8.5 X10^3/uL (2.0-7.7); Basophil# 0.01 X10^3/uL; Basophil% 0.1 % (0-1); Hematocrit 38.3 % (37-47); Hemoglobin 12.9 g/dl (12.0-15.0); Lymphocyte # 1.11 X10^3/ul (4.0); Lymphocyte % 10.6 % (19-41); Mean Corp Hgb Conc 33.7 g/gl (32-36); Mean Corpuscular Hgb 29.7 pg (27.0-32.0); Mean Corpuscular Volume 88.2 fL (81-99); Mean Platelet Vol. 10.3 fl (6.2-12.0); Monocyte# 0.84 X10^3/uL; Neutrophil # 8.52 X10^3/uL (2.7-7.7); Neutrophil % 80.9 % (47-70); Platelet Count 309 K/mm3 (150-450); RBC Distribution Width CV 14.1 % (11.6-14.6); Red Blood Count 4.34 M/mm3 (4.2-5.4); White Blood Count 10.5 K/mm3 (4.4-11.0)
[2018-11-16 13:53] LABS: POSITIVE COUNT NO; POSITIVE DIFFERENTIAL NO; POSITIVE MORPHOLOGY NO
[2018-11-16 13:55] LABS: ALB/GLOB Ratio 0.9 RATIO (0.9-2.4); AST(SGOT) 76 U/L (15-37); Alanine Aminotransfer ALT/SGPT 54 U/L (13-56); Albumin, Serum 4.2 g/dL (3.2-5.0); Alkaline Phosphatase 90 U/L (45-117); Anion Gap 27 (5-15); BUN 28 mg/dL (7-18); BUN/Creat Ratio 16.8 RATIO (10-20); Calcium,Total 8.7 mg/dL (8.5-10.1); Chloride 90 mmol/L (98-107); Creatinine, Serum 1.67 mg/dL (0.55-1.02); EST Glomerular Filtration Rate 34 mL/min (>60); Est Glom Filt Rate - Afr Amer 41 mL/min (>60); Estimated Creatinine Clearance 32.09 ml/min; Globulin 4.6 g/dL (2.2-4.2); Glucose 60 mg/dL (74-106); Lipase 199 U/L (73-393); Potassium 4.8 mmol/L (3.5-5.1); Protein, Total 8.8 g/dL (6.4-8.2); Sodium Level 130 mmol/L (136-145)
[2018-11-16 14:02] LABS: Prothrombin Time (Protime)PT. 13.4 SECONDS (11.7-14.9)
--- NOTE | 2018-11-16 14:43 | ED.VISSUMM ---
- ER Visit Summary Date of Service: 11/16/18 Chief Complaint: Nausea, vomiting, dehydration History of Present Illness: The patient is a 58 F presents to the emergency department nausea and vomiting. Patient has a long-standing history of alcohol abuse. She is been through detox twice within the past year. She states she cannot stay sober. She drinks about 1/5 of vodka daily. She states she is been drinking, but over the past 4 days, she is been unable to eat. She states she is a few bouts of emesis. She denies any blood in the emesis. She states she had some cramping abdominal pain, lack of appetite, and inability to hold down food. She had this before secondary to her history of alcohol abuse. She denies any other drug use. She is otherwise been in her normal state of health. Physical Examination: Vital signs reviewed General: Well-nourished, well-developed Head: Normocephalic, atraumatic Eyes: Pupils equal and reactive, extraocular muscles intact Neck, supple, no lymphadenopathy Heart: Regular rate and rhythm Respiratory: No distress, clear bilaterally Abdomen: Soft, mildly tender in the midepigastric area without rebound or guarding, nondistended, no peritoneal signs Back: Nontender Extremities: Nontender, no edema, no cords Skin: Normal color no rash Neuro: Alert and oriented, no focal or lateralizing deficits Test Results: [] Emergency Department Course and Treatment: IV was established. Patient was mildly tachycardic but not hypotensive. She does not feel acute withdrawal. She was given 2 L of fluids. Screening labs do show an elevated anion gap, decreased bicarb, and serum ketones. I do feel the patient is an alcoholic ketoacidosis. She is started on D5 lactated Ringer's. She is given folic acid and thiamine. She is obviously going to need admission due to her increased risk of acute withdrawal from her vomiting and ketosis. Patient was discussed with the hospitalist and will be admitted. Treatment Plan: [] Disposition: Admission Impression: 1. Alcoholic ketoacidosis 2. Dehydration This note was generated with [employer] software. It may contain incorrect words, spelling, and punctuation that were not noted in review of the chart prior to signing ED Disposition - Plan for ED Patient: Referrals: Kellie Delarosa DO [Primary Care Provider] -
[2018-11-16] MEDS: Dextrose 5%-Lactated Ringers 1,000 ML 150 ML IV (15:59)
[2018-11-16] MEDS: Folic Acid 1 MG Tablet PO ×2 (15:59→17:41)
[2018-11-16] MEDS: Thiamine Hydrochloride 100 MG Tablet PO ×2 (15:59→17:41)
[2018-11-16] MEDS: traMADol 50 MG Tablet PO (16:58)
[2018-11-16] MEDS: Dext 5%-0.45% NS 1,000 ML 200 ML IV ×2 (16:59→22:30)
--- NOTE | 2018-11-16 17:40 | HP.PCM_ITS ---
Problem List (1) Nausea and vomiting Status: Acute Qualifiers: Vomiting type: unspecified (2) YADIRA (acute kidney injury) Status: Acute History of Present Illness Date of Admission: 11/16/18 Chief Complaint: Nausea and vomiting The patient is a 58 year old F was seen in the emergency room at [facility] with chief complaint of nausea and vomiting today. Patient is an alcoholic and has been drinking chronically heavily over the last 3 to 4 days in particular, patient states that she has a history of chronic stomach pain, she is due to get outpatient testing but was not able to follow-up with the physician that was scheduled to do an EGD. Patient is not sure she wants help quitting drinking, she has been through detox once before and is supposed to be following up as an outpatient with detox services but she has not been going for a week. Patient has not been able to eat anything for several days. Evaluation in the emergency room included a CBC with that was unremarkable, patient's CHEM panel was remarkable for a sodium of 130, chloride of 90, HCO3 of 13, anion gap of 27, BUN of 28, and creatinine of 1.67. Patient's AST was elevated at 76, ethyl alcohol was 186, and patient had moderate acetone level. Patient was given IV fluids in the emergency room and antiemetics, she will be admitted to PCU for nondiabetic anion gap acidosis. Past Medical History Past Medical History (Chronic Problems): Chronic Problems (Last Reviewed 07/16/18 @ 15:12 by Tio Conley DO) ETOH abuse (Chronic) Medical History: Medical History (Last Reviewed 07/16/18 @ 15:12 by Tio Conley DO) Hepatotoxicity, secondary to ETOH (Resolved) K70.9 Elevated ETOH level (Acute) R78.0 ETOH abuse (Chronic) F10.10 Abnormal mammogram R92.8 Anxiety F41.9 Bipolar 1 disorder F31.9 COPD (chronic obstructive pulmonary disease) J44.9 History of hysterectomy Z90.710 Insomnia G47.00 Allergies Penicillins Allergy (Verified 07/16/18 15:45) WEAKNESS,VISION ISSUES PT STATES MAKES HER WEAK Home Medications: Ambulatory Orders Medication Instructions Recorded Hydroxyzine HCl 50 mg PO BID PRN PRN 08/11/17 albuterol sulfate 2.5 mg/3 mL 2.5 mg INHALATION Q4H PRN 09/26/18 (0.083 %) solution for nebulization loratadine 10 mg tablet 10 mg PO DAILY 04/04/18 omeprazole 20 mg capsule,delayed 20 mg PO BID cap 04/04/18 release Sucralfate [Carafate] 1 gm PO 4X/DAY 06/15/18 Fluticasone/Vilanterol [Breo 1 puff INHALATION DAILY 07/16/18 Ellipta 100-25 Mcg INH] Albuterol Sulfate [Ventolin Hfa] 1 - 2 puff IH Q6H PRN PRN 11/16/18 Lisinopril 2.5 mg PO DAILY 11/16/18 Mirtazapine 15 mg PO QHS 11/16/18 buPROPion SR [Wellbutrin SR (150mg 150 mg PO BID 11/16/18 tablets)] traMADol [Ultram] 50 mg PO BID PRN PRN 11/16/18 Surgical History: Surgical History (Last Reviewed 07/16/18 @ 15:12 by Tio Conley DO) History of Z98.891 Surgical History: hysterectomy, - - , implantation of bladder sling Psychiatric History: No pertinent psych hx [employer] History: No pertinent [employer] history Lives: Friends Smoking Status: Current every day smoker Tobacco Use: Cigarettes Alcohol: Heavy Drugs: None - *Family History Maternal Family History: Family History (Last Reviewed 07/16/18 @ 15:12 by Tio Conley DO) Mother Hypertension Thyroid disorder CVA (cerebral vascular accident) Sister Heart disease History Items: No pertinent history Paternal Family History: Family History (Last Reviewed 07/16/18 @ 15:12 by Tio Conley DO) Mother Hypertension Thyroid disorder CVA (cerebral vascular accident) Sister Heart disease History Items: - - Alcoholism Review of Systems Constitutional: Reports: Anorexia, Weakness, Fatigue. Denies: Chills, Fever, Night Sweats, Malaise, Weight Change Eyes: Denies: Cataracts, Conjunctivae Inflammation, Double vision, Drainage HEENT: Denies: Difficulty Swallowing, Dysphasia, Ear Pain, Eye Pain, Hearing Changes, Nasal bleeding, Nasal Congestion, Post Nasal Drip Cardiovascular: Denies: Chest Pain, Claudication, Chest Pressure, Chest Tightness, Edema, Heaviness, Palpitations Respiratory: Denies: Cough, Hemoptysis, Pleuritic Pain, Shortness of Breath, Shortness of breath at rest, Shortness of breath upon exertion Gastrointestinal: Reports: Abdominal Pain, Nausea, Vomiting. Denies: Constipation, Diarrhea, Hematemesis, Hematochezia, Melena Genitourinary: Denies: Dysuria, Frequency, Hematuria, Hesitancy, Urgency Gynecological: Denies: Breast symptoms Musculoskeletal: Denies: Foot Pain, Hand Pain, Joint Pain, Joint stiffness, Joint swelling, Joint Tenderness, Leg Pain Skin: Denies: Dryness, Jaundice, Pruritis, Rash Neurological: Denies: Balance problems, Blurred vision, Double vision, Slurred speech, Difficulty swallowing, Focal weakness, Headaches, Numbness, Tingling, Tremor, Seizures Psychiatric: Denies: Anxiety, Depression, Homicidal Ideations, Suicidal Ideations Endocrine: Denies: Change in Body Habitus, Heat/ Cold Intolerance, Polydipsia, Polyuria Hematologic/ Lymphatic: Denies: Adenopathy, Anemia, Easy Bruising, Easy Bleeding, Petechiae, Purpura VTE Information - Inpt Only VTE Present on Admission: No VTE Mechan Device Prophylaxis: None VTE Pharm Prophylaxis ordered?: Yes Patient Problems: Active and Suspected Problems (Last Updated 11/16/18 @ 17:42 by Gonzales De Leon DO) Nausea and vomiting (Acute) - Physical Exam General: Alert, Oriented x3, Cooperative, No apparent distress, Well developed, Well nourished HEENT: Atraumatic, PERRLA, EOMI, Normocephalic Oral: Dry Mucosa Neck: Supple, No JVD, Negative Carotid Bruits, No Nuchal Rigidity, Trachea Midline, Thyroid Normal Size and Texture Lungs: Clear to auscultation, Normal air movement, No rhonchi, No wheeze, No rales Cardiovascular: Regular rate, Regular Rhythm, Normal S1, Normal S2, No murmurs, No Ectopic Activity Abdomen: Bowel Sounds Present, Soft, Non Tender, Non-Distended, No Hepato- splenomegaly, No hernias noted Extremities: No clubbing, No cyanosis, No edema, Capillary Refill Less than 3 Seconds Skin: No rashes, No breakdown Musculoskeletal: No Tenderness to Palpation of Joints or Extremities Neurological: Cranial nerves II-XII grossly intact, Neuro grossly intact, Sensory exam intact to light touch and pain, Coordination normal Psych/Mental Status: Normal Affect, Appropriate, Alert and oriented to time, place, person, mood and affect Vital Signs Temp Pulse Resp BP Pulse Ox 98.4 F 106 H 16 146/78 H 97 11/16/18 16:45 11/16/18 16:45 11/16/18 16:45 11/16/18 16:45 11/16/18 16:45 Oxygen Delivery Method Room Air Weight: 56.2 kg Body Mass Index (BMI) 21.2 Laboratory Tests Past 24 Hrs 11/16/18 11/16/18 11/16/18 13:20 13:20 13:20 WBC 10.5 RBC 4.34 Hgb 12.9 Hct 38.3 MCV 88.2 MCH 29.7 MCHC 33.7 RDW 14.1 RDW Differential 46.0 H Plt Count 309 MPV 10.3 Immature Gran % (Auto) 0.400 Neut % (Auto) 80.9 H Lymph % (Auto) 10.6 L [place] % (Auto) 8.0 Eos % (Auto) 0.0 Baso % (Auto) 0.1 Absolute Neuts (auto) 8.5 H Absolute Lymphs (auto) 1.11 Total Counted Not Reportable PT 13.4 INR 1.0 Sodium 130 L Potassium 4.8 Chloride 90 L Carbon Dioxide 13.0 L Anion Gap 27 H BUN 28 H Creatinine 1.67 H Estim Creat Clear Calc 32.09 Est GFR (MDRD) Af Amer 41 L Est GFR (MDRD) Non-Af 34 L BUN/Creatinine Ratio 16.8 Glucose 60 L Calcium 8.7 Total Bilirubin 0.60 AST 76 H ALT 54 Alkaline Phosphatase 90 Total Protein 8.8 H Albumin 4.2 Globulin 4.6 H Albumin/Globulin Ratio 0.9 Lipase 199 Ethyl Alcohol Acetone Level 11/16/18 11/16/18 13:20 13:20 WBC RBC Hgb Hct MCV MCH MCHC RDW RDW Differential Plt Count MPV Immature Gran % (Auto) Neut % (Auto) Lymph % (Auto) [place] % (Auto) Eos % (Auto) Baso % (Auto) Absolute Neuts (auto) Absolute Lymphs (auto) Total Counted PT INR Sodium Potassium Chloride Carbon Dioxide Anion Gap BUN Creatinine Estim Creat Clear Calc Est GFR (MDRD) Af Amer Est GFR (MDRD) Non-Af BUN/Creatinine Ratio Glucose Calcium Total Bilirubin AST ALT Alkaline Phosphatase Total Protein Albumin Globulin Albumin/Globulin Ratio Lipase Ethyl Alcohol 186.0 Acetone Level MODERATE H Assessment/Plan All Active Problems (Last Updated 11/16/18 @ 17:42 by Gonzales De Leon DO) YADIRA (acute kidney injury) (Acute) Alcohol withdrawal delirium, acute, hyperactive (Resolved) Nausea and vomiting (Acute) Hepatotoxicity, secondary to ETOH (Resolved) Elevated ETOH level (Acute) #1 nondiabetic [id number] will be admitted to PCU, she will be given IV fluids, labs will be monitored #2 alcohol intoxication-patient will be monitored for alcohol withdrawal, again patient is not sure she wants to go through any detox program #3 hyponatremia-secondary to vomiting, labs will be monitored #4 acute kidney injury-secondary to nausea and vomiting #5 chronic abdominal pain-etiology unclear, patient does not appear to have pancreatitis, she will remain on PPI #6 obstructive pulmonary disease-patient will be placed on aerosol treatments #7 alcoholism-chronic #8 elevated liver enzymes secondary to chronic alcohol usage-patient does not appear to have alcoholic hepatitis Code Visit Inpatient E&M: 33777 Init Hosp L3
[2018-11-16 18:00] LABS: Bedside Glucose 112 mg/dL (70-110)
[2018-11-16] MEDS: Ipratropium/Albuterol Sulfate 3 ML AMPUL.NEB INHALATION (19:20)
[2018-11-16] MEDS: Budesonide Respules 0.5 MG/2 ML AMPUL.NEB. INHALATION (19:20)
[2018-11-16] MEDS: LORazepam 1 MG Tablet 2 MG PO (20:01)
[2018-11-16] MEDS: Mirtazapine 15 MG Tablet PO (22:31)
[2018-11-16] MEDS: Pantoprazole Sodium 20 MG Tablet PO (22:31)
[2018-11-16] MEDS: Heparin Injection (Vial) 5,000 UNIT/ML VIAL 5000 UNIT SC (22:31)
[2018-11-16] MEDS: buPROPion (SR) 150 MG Tablet.SA PO (22:31)
[2018-11-16 22:56] LABS: Bedside Glucose 369 mg/dL (70-110)
[2018-11-17] VITALS (14 sets, daily range): BP systolic 145–155; BP diastolic 74–95; PULSE 85–110; RESP 16–19; TEMP 36.8–37.2; O2SAT 91–99
[2018-11-17] MEDS: Dext 5%-0.45% NS 1,000 ML 200 ML IV ×4 (03:48→19:30)
[2018-11-17] MEDS: Budesonide Respules 0.5 MG/2 ML AMPUL.NEB. INHALATION ×2 (07:06→18:43)
[2018-11-17] MEDS: Ipratropium/Albuterol Sulfate 3 ML AMPUL.NEB INHALATION ×3 (07:06→18:43)
[2018-11-17 07:10] LABS: Bedside Glucose 269 mg/dL (70-110)
[2018-11-17 07:52] LABS: ALB/GLOB Ratio 0.9 RATIO (0.9-2.4); AST(SGOT) 35 U/L (15-37); Alanine Aminotransfer ALT/SGPT 33 U/L (13-56); Albumin, Serum 2.9 g/dL (3.2-5.0); Alkaline Phosphatase 69 U/L (45-117); Anion Gap 6 (5-15); BUN 16 mg/dL (7-18); BUN/Creat Ratio 11.3 RATIO (10-20); Calcium,Total 7.8 mg/dL (8.5-10.1); Chloride 101 mmol/L (98-107); Creatinine, Serum 1.42 mg/dL (0.55-1.02); EST Glomerular Filtration Rate 41 mL/min (>60); Est Glom Filt Rate - Afr Amer 49 mL/min (>60); Estimated Creatinine Clearance 37.75 ml/min; Globulin 3.2 g/dL (2.2-4.2); Glucose 238 mg/dL (74-106); Protein, Total 6.1 g/dL (6.4-8.2); Sodium Level 132 mmol/L (136-145)
[2018-11-17] MEDS: Thiamine Hydrochloride 100 MG Tablet PO ×2 (08:47→17:52)
[2018-11-17] MEDS: Pantoprazole Sodium 20 MG Tablet PO ×2 (08:47→21:16)
[2018-11-17] MEDS: Folic Acid 1 MG Tablet PO (08:47)
[2018-11-17] MEDS: Multivitamins,Ther W-Minerals Tablet 1 TABLET PO (08:47)
[2018-11-17] MEDS: Lisinopril 2.5 MG Tablet PO (08:48)
[2018-11-17] MEDS: buPROPion (SR) 150 MG Tablet.SA PO ×2 (08:48→21:16)
[2018-11-17] MEDS: Heparin Injection (Vial) 5,000 UNIT/ML VIAL 5000 UNIT SC ×2 (08:49→21:16)
[2018-11-17 09:01] LABS: Magnesium 1.8 mg/dL (1.6-2.6)
[2018-11-17 11:21] LABS: Bedside Glucose 240 mg/dL (70-110)
--- NOTE | 2018-11-17 11:36 | CASEMGMT ---
SW met w/pt briefly in room in regard to discharge plan. Pt did agree to be part of [facility]. SW explained to pt that though she may not be formally part of [facility], the physician will be following the withdrawal protocol. Pt states understanding. SW asked pt about her plan after discharge. Pt states she has been going to the IOP in , [facility], and plans to continue. Pt states she fell off the wagon, has been drinking for a week. Prior to that pt states she had been sober since July. Support offered to pt. SW called [facility] and did leave a message if they would like to see pt on Monday. Otherwise, pt to return home at discharge and continue IOP services at [facility]. DEJAH Soria
--- NOTE | 2018-11-17 11:40 | PN_ITS ---
Addendum entered and electronically signed by DALE Palomino 11/17/18 12:02: Code Visit CIWA currently 1 and patient has not required ativan since X1 last night. Will continue CIWA/prn ativan protocol and if increased withdrawal sx, will begin ativan taper at that time. Original Note: <Kirsten Clifton - Last Filed: 11/17/18 11:49> Patient Problems: Active and Suspected Problems (Last Updated 11/16/18 @ 17:42 by Gonzales De Leon DO) Nausea and vomiting (Acute) Subjective: Patient seen and examined. Complains of nausea, abdominal cramping, tremors and anxiety. Denies emesis. Requesting [facility] services. - Physical Exam General: Alert, Oriented x3, Cooperative HEENT: Atraumatic, PERRLA, EOMI, Normocephalic Neck: Supple, No JVD, Negative Carotid Bruits Lungs: Clear to auscultation, Normal air movement Cardiovascular: Regular rate, Regular Rhythm, Normal S1, Normal S2, No murmurs Abdomen: Bowel Sounds Present, Soft, Non Tender, Non-Distended Extremities: No clubbing, No cyanosis, No edema, Capillary Refill Less than 3 Seconds Skin: No rashes, No breakdown Musculoskeletal: No Tenderness to Palpation of Joints or Extremities Neurological: Cranial nerves II-XII grossly intact, Neuro grossly intact Psych/Mental Status: Normal Affect, Appropriate Vital Signs Temp Pulse Resp BP Pulse Ox 98.5 F 85 16 145/86 H 95 11/17/18 08:39 11/17/18 08:39 11/17/18 08:39 11/17/18 08:39 11/17/18 08:39 Oxygen Delivery Method Room Air Weight: 123 lb 14.397 oz Body Mass Index (BMI) 21.2 Intake and Output for Last 24 Hours 11/15/18 11/16/18 11/17/18 23:59 23:59 23:59 Intake Total 3943 / 3943 Balance 3943 / 3943 Laboratory Tests Past 24 Hrs 11/16/18 11/16/18 11/16/18 13:20 13:20 13:20 WBC 10.5 RBC 4.34 Hgb 12.9 Hct 38.3 MCV 88.2 MCH 29.7 MCHC 33.7 RDW 14.1 RDW Differential 46.0 H Plt Count 309 MPV 10.3 Immature Gran % (Auto) 0.400 Neut % (Auto) 80.9 H Lymph % (Auto) 10.6 L [place] % (Auto) 8.0 Eos % (Auto) 0.0 Baso % (Auto) 0.1 Absolute Neuts (auto) 8.5 H Absolute Lymphs (auto) 1.11 Total Counted Not Reportable PT 13.4 INR 1.0 Sodium 130 L Potassium 4.8 Chloride 90 L Carbon Dioxide 13.0 L Anion Gap 27 H BUN 28 H Creatinine 1.67 H Estim Creat Clear Calc 32.09 Est GFR (MDRD) Af Amer 41 L Est GFR (MDRD) Non-Af 34 L BUN/Creatinine Ratio 16.8 Glucose 60 L Calcium 8.7 Magnesium Total Bilirubin 0.60 AST 76 H ALT 54 Alkaline Phosphatase 90 Total Protein 8.8 H Albumin 4.2 Globulin 4.6 H Albumin/Globulin Ratio 0.9 Lipase 199 Ethyl Alcohol Acetone Level 11/16/18 11/16/18 11/17/18 13:20 13:20 06:58 WBC RBC Hgb Hct MCV MCH MCHC RDW RDW Differential Plt Count MPV Immature Gran % (Auto) Neut % (Auto) Lymph % (Auto) Love % (Auto) Eos % (Auto) Baso % (Auto) Absolute Neuts (auto) Absolute Lymphs (auto) Total Counted PT INR Sodium 132 L Potassium 3.0 L Chloride 101 Carbon Dioxide 25.0 Anion Gap 6 BUN 16 Creatinine 1.42 H Estim Creat Clear Calc 37.75 Est GFR (MDRD) Af Amer 49 L Est GFR (MDRD) Non-Af 41 L BUN/Creatinine Ratio 11.3 Glucose 238 H Calcium 7.8 L Magnesium Total Bilirubin 0.60 AST 35 ALT 33 Alkaline Phosphatase 69 Total Protein 6.1 L Albumin 2.9 L Globulin 3.2 Albumin/Globulin Ratio 0.9 Lipase Ethyl Alcohol 186.0 Acetone Level MODERATE H 11/17/18 06:58 WBC RBC Hgb Hct MCV MCH MCHC RDW RDW Differential Plt Count MPV Immature Gran % (Auto) Neut % (Auto) Lymph % (Auto) Love % (Auto) Eos % (Auto) Baso % (Auto) Absolute Neuts (auto) Absolute Lymphs (auto) Total Counted PT INR Sodium Potassium Chloride Carbon Dioxide Anion Gap BUN Creatinine Estim Creat Clear Calc Est GFR (MDRD) Af Amer Est GFR (MDRD) Non-Af BUN/Creatinine Ratio Glucose Calcium Magnesium 1.8 Total Bilirubin AST ALT Alkaline Phosphatase Total Protein Albumin Globulin Albumin/Globulin Ratio Lipase Ethyl Alcohol Acetone Level POC Glucose 11/17/18 11/17/18 11/16/18 11:02 06:31 22:40 POC Glucose 240 H 269 H 369 H 11/16/18 17:59 POC Glucose 112 H Medical Necessity - Tobacco Use Smoking Status: Current every day smoker Tobacco Use: Cigarettes Assessment/Plan All Active Problems (Last Updated 11/16/18 @ 17:42 by Gonzales De Leon DO) YADIRA (acute kidney injury) (Acute) Alcohol withdrawal delirium, acute, hyperactive (Resolved) Nausea and vomiting (Acute) Hepatotoxicity, secondary to ETOH (Resolved) Elevated ETOH level (Acute) 1. Non-diabetic ketoacidosis-improved, continue IV fluids. Trend BMP. 2. Alcohol withdrawal on chronic alcohol abuse-requesting [facility] services. Consult [facility]. Medical stabilization per protocol. Continue thiamine, folic acid, multivitamin supplementation. 3. Hypovolemic hyponatremia/beer protomania-improving with IV fluids. Trend BMP. 4. Hypokalemia-replace per protocol. Trend BMP. 5. Acute kidney injury-suspect secondary to dehydration as a result of nausea and vomiting as well as alcohol use. Improving with IV fluids. Trend BMP. 6. Chronic abdominal pain-continue home PPI, sucralfate regimen. Lipase within normal limits. 7. Chronic COPD-no acute exacerbation. As needed albuterol aerosol. 8. Hypertension-stable, continue lisinopril regimen. 9. Anxiety/depression-continue Wellbutrin, hydroxyzine regimen. 10. RLS-continue mirtazapine regimen. DVT prophylaxis-heparin subcu This patient was seen by DALE Palomino under the supervision of Dr. Kendall. <Adan Kendall - Last Filed: 11/17/18 11:59> - Physical Exam Vital Signs Temp Pulse Resp BP Pulse Ox 98.5 F 86 16 145/86 H 95 11/17/18 08:39 11/17/18 11:16 11/17/18 08:39 11/17/18 08:39 11/17/18 08:39 Oxygen Delivery Method Room Air Weight: 56.2 kg Body Mass Index (BMI) 21.2 Intake and Output for Last 24 Hours 11/15/18 11/16/18 11/17/18 23:59 23:59 23:59 Intake Total 3943 / 3943 Balance 3943 / 3943 Laboratory Tests Past 24 Hrs 11/16/18 11/16/18 11/16/18 13:20 13:20 13:20 WBC 10.5 RBC 4.34 Hgb 12.9 Hct 38.3 MCV 88.2 MCH 29.7 MCHC 33.7 RDW 14.1 RDW Differential 46.0 H Plt Count 309 MPV 10.3 Immature Gran % (Auto) 0.400 Neut % (Auto) 80.9 H Lymph % (Auto) 10.6 L [place] % (Auto) 8.0 Eos % (Auto) 0.0 Baso % (Auto) 0.1 Absolute Neuts (auto) 8.5 H Absolute Lymphs (auto) 1.11 Total Counted Not Reportable PT 13.4 INR 1.0 Sodium 130 L Potassium 4.8 Chloride 90 L Carbon Dioxide 13.0 L Anion Gap 27 H BUN 28 H Creatinine 1.67 H Estim Creat Clear Calc 32.09 Est GFR (MDRD) Af Amer 41 L Est GFR (MDRD) Non-Af 34 L BUN/Creatinine Ratio 16.8 Glucose 60 L Calcium 8.7 Magnesium Total Bilirubin 0.60 AST 76 H ALT 54 Alkaline Phosphatase 90 Total Protein 8.8 H Albumin 4.2 Globulin 4.6 H Albumin/Globulin Ratio 0.9 Lipase 199 Ethyl Alcohol Acetone Level 11/16/18 11/16/18 11/17/18 13:20 13:20 06:58 WBC RBC Hgb Hct MCV MCH MCHC RDW RDW Differential Plt Count MPV Immature Gran % (Auto) Neut % (Auto) Lymph % (Auto) Love % (Auto) Eos % (Auto) Baso % (Auto) Absolute Neuts (auto) Absolute Lymphs (auto) Total Counted PT INR Sodium 132 L Potassium 3.0 L Chloride 101 Carbon Dioxide 25.0 Anion Gap 6 BUN 16 Creatinine 1.42 H Estim Creat Clear Calc 37.75 Est GFR (MDRD) Af Amer 49 L Est GFR (MDRD) Non-Af 41 L BUN/Creatinine Ratio 11.3 Glucose 238 H Calcium 7.8 L Magnesium Total Bilirubin 0.60 AST 35 ALT 33 Alkaline Phosphatase 69 Total Protein 6.1 L Albumin 2.9 L Globulin 3.2 Albumin/Globulin Ratio 0.9 Lipase Ethyl Alcohol 186.0 Acetone Level MODERATE H 11/17/18 06:58 WBC RBC Hgb Hct MCV MCH MCHC RDW RDW Differential Plt Count MPV Immature Gran % (Auto) Neut % (Auto) Lymph % (Auto) Love % (Auto) Eos % (Auto) Baso % (Auto) Absolute Neuts (auto) Absolute Lymphs (auto) Total Counted PT INR Sodium Potassium Chloride Carbon Dioxide Anion Gap BUN Creatinine Estim Creat Clear Calc Est GFR (MDRD) Af Amer Est GFR (MDRD) Non-Af BUN/Creatinine Ratio Glucose Calcium Magnesium 1.8 Total Bilirubin AST ALT Alkaline Phosphatase Total Protein Albumin Globulin Albumin/Globulin Ratio Lipase Ethyl Alcohol Acetone Level POC Glucose 11/17/18 11/17/18 11/16/18 11:02 06:31 22:40 POC Glucose 240 H 269 H 369 H 11/16/18 17:59 POC Glucose 112 H Assessment/Plan This patient was seen in conjunction with DALE Palomino . I have independently interviewed and examined the patient and reviewed pertinent historical, laboratory, and other data. Please refer to DALE Palomino note for details of this patient's presentation, findings, and recommendations. I have reviewed DALE Palomino note and concur with documented findings. In brief, patient is a 58-year-old lady with history of chronic alcohol use who presented with abdominal discomfort associated with intractable nausea and vomiting and assessment of acute ketosis was made admitted to the regular nursing for further management Physical Examination: GENERAL: cooperative HEENT: Atraumatic; EYES; Anicteric, NECK; supple, normal thyroid, RESPIRATORY: Diminished to auscultation bilaterally, CARDIOVASCULAR: Regular S1 S2, GI: soft, non-tender, normoactive bowel sounds, : No Renal angle tenderness; EXTREMITIES: No edema, no clubbing, . NEURO: Awake; no lateralizing signs. SKIN: No Rash PSYCH;flat affect Assessment: 1. Acute alcoholic ketosis 2. Suspected gastritis from alcohol use 3. Chronic alcohol use with early withdrawal 4. Hyponatremia secondary to beer potomania 5. Hypokalemia 6. Acute kidney injury 7. Tobacco dependence 8. COPD 9. Depression with anxiety 10. Restless leg syndrome Recommendations: 1. I have discussed the results of my overview and impressions with the patient 2. Options for management were reviewed Code Visit Inpatient E&M: 43148 Subs Hosp L3
[2018-11-17] MEDS: traMADol 50 MG Tablet PO ×2 (13:25→21:16)
[2018-11-17 17:00] LABS: Bedside Glucose 196 mg/dL (70-110)
[2018-11-17] MEDS: LORazepam 1 MG Tablet 2 MG PO (18:44)
[2018-11-17] MEDS: Mirtazapine 15 MG Tablet PO (21:16)
[2018-11-17 23:06] LABS: Bedside Glucose 169 mg/dL (70-110)
[2018-11-17] MEDS: Polyethylene Glycol 3350 17 GM PACKET PO (23:12)
[2018-11-18] VITALS (12 sets, daily range): BP systolic 136–166; BP diastolic 84–99; PULSE 91–129; RESP 18–26; TEMP 36.4–37.3; O2SAT 94–97
[2018-11-18] MEDS: Dext 5%-0.45% NS 1,000 ML 200 ML IV ×2 (00:44→05:32)
[2018-11-18 05:57] LABS: Anion Gap 10 (5-15); BUN 3 mg/dL (7-18); BUN/Creat Ratio 3.7 RATIO (10-20); Calcium,Total 8.3 mg/dL (8.5-10.1); Chloride 94 mmol/L (98-107); Creatinine, Serum 0.81 mg/dL (0.55-1.02); EST Glomerular Filtration Rate 77 mL/min (>60); Est Glom Filt Rate - Afr Amer 93 mL/min (>60); Estimated Creatinine Clearance 66.17 ml/min; Glucose 176 mg/dL (74-106); Magnesium 1.1 mg/dL (1.6-2.6); Potassium 3.1 mmol/L (3.5-5.1); Sodium Level 130 mmol/L (136-145)
[2018-11-18 06:56] LABS: Bedside Glucose 165 mg/dL (70-110)
[2018-11-18] MEDS: Budesonide Respules 0.5 MG/2 ML AMPUL.NEB. INHALATION ×2 (07:03→19:01)
[2018-11-18] MEDS: Ipratropium/Albuterol Sulfate 3 ML AMPUL.NEB INHALATION ×2 (07:03→19:01)
[2018-11-18] MEDS: traMADol 50 MG Tablet PO ×2 (08:14→14:25)
[2018-11-18] MEDS: Multivitamins,Ther W-Minerals Tablet 1 TABLET PO (08:15)
[2018-11-18] MEDS: Thiamine Hydrochloride 100 MG Tablet PO (08:15)
[2018-11-18] MEDS: Folic Acid 1 MG Tablet PO (08:15)
[2018-11-18] MEDS: proMETHazine 25 MG/ML Syringe 6.25 MG IV ×2 (08:28→14:24)
[2018-11-18] MEDS: 0.9% NaCl Peripheral Flush Adult/Peds IV ×7 (08:29→23:30)
[2018-11-18] MEDS: Ondansetron 4 MG/2 ML Vial IV ×2 (09:15→18:22)
[2018-11-18] MEDS: Magnesium Citrate 300 ML PO (09:19)
[2018-11-18] MEDS: Heparin Injection (Vial) 5,000 UNIT/ML VIAL 5000 UNIT SC (09:25)
--- NOTE | 2018-11-18 11:08 | PN_ITS ---
<Kirsten Clifton - Last Filed: 11/18/18 11:08> Patient Problems: Active and Suspected Problems (Last Updated 11/16/18 @ 17:42 by Gonzales De Leon DO) Nausea and vomiting (Acute) Subjective: Patient seen and examined. Complains of abdominal discomfort and constipation. Mag citrate ordered earlier this morning however patient had nausea with emesis. Denies other current complaints. - Physical Exam General: Alert, Oriented x3, Cooperative HEENT: Atraumatic, PERRLA, EOMI, Normocephalic Neck: Supple, No JVD, Negative Carotid Bruits Lungs: Clear to auscultation, Normal air movement Cardiovascular: Regular rate, Regular Rhythm, Normal S1, Normal S2, No murmurs Abdomen: Bowel Sounds Present, Soft, Non-Distended, Tender Extremities: No clubbing, No cyanosis, No edema, Capillary Refill Less than 3 Seconds Skin: No rashes, No breakdown Musculoskeletal: No Tenderness to Palpation of Joints or Extremities Neurological: Cranial nerves II-XII grossly intact, Neuro grossly intact Psych/Mental Status: Normal Affect, Appropriate Vital Signs Temp Pulse Resp BP Pulse Ox 97.8 F 91 19 H 166/99 H 94 11/18/18 09:32 11/18/18 09:32 11/18/18 09:32 11/18/18 09:32 11/18/18 09:32 Oxygen Delivery Method Room Air Weight: 123 lb 14.397 oz Body Mass Index (BMI) 21.2 Intake and Output for Last 24 Hours 11/16/18 11/17/18 11/18/18 23:59 23:59 23:59 Intake Total 206 / 206 7198 / 7198 1425 / 1425 Balance 206 / 206 7198 / 7198 1425 / 1425 Laboratory Tests Past 24 Hrs 11/18/18 04:54 Sodium 130 L Potassium 3.1 L Chloride 94 L Carbon Dioxide 26.0 Anion Gap 10 BUN 3 L Creatinine 0.81 Estim Creat Clear Calc 66.17 Est GFR (MDRD) Af Amer 93 Est GFR (MDRD) Non-Af 77 BUN/Creatinine Ratio 3.7 L Glucose 176 H Calcium 8.3 L Magnesium 1.1 L POC Glucose 11/18/18 11/17/18 11/17/18 06:35 21:09 16:19 POC Glucose 165 H 169 H 196 H 11/17/18 11:02 POC Glucose 240 H Medical Necessity - Tobacco Use Smoking Status: Current every day smoker Tobacco Use: Cigarettes Assessment/Plan All Active Problems (Last Updated 11/16/18 @ 17:42 by Gonzales De Leon DO) YADIRA (acute kidney injury) (Acute) Alcohol withdrawal delirium, acute, hyperactive (Resolved) Nausea and vomiting (Acute) Hepatotoxicity, secondary to ETOH (Resolved) Elevated ETOH level (Acute) 1. Non-diabetic alcoholic ketoacidosis-resolved. 2. Alcohol withdrawal on chronic alcohol abuse-requesting [facility] services. Medical stabilization per protocol. Continue thiamine, folic acid, multivitamin supplementation. Patient CIWA has been 6-7. She has not needed frequent ativan. She already has outpatient follow up with outpatient counseling. She denies other needs at discharge. If she remains stable, will discharge tomorrow with continued outpatient follow up. [facility] not formally consulted. 3. Hypovolemic hyponatremia/beer protomania-stable. Trend BMP. 4. Hypokalemia-replace per protocol. Trend BMP. 5. Acute kidney injury-suspect secondary to dehydration as a result of nausea and vomiting as well as alcohol use. Improved with IV fluids. Trend BMP. 6. Chronic abdominal pain-continue home PPI, sucralfate regimen. Lipase within normal limits. 7. Chronic COPD-no acute exacerbation. As needed albuterol aerosol. 8. Hypertension-stable, continue lisinopril regimen. 9. Anxiety/depression-continue Wellbutrin, hydroxyzine regimen. 10. RLS-continue mirtazapine regimen. DVT prophylaxis-heparin subcu This patient was seen by DALE Palomino under the supervision of Dr. Kendall. <Adan Kendall - Last Filed: 11/18/18 12:38> - Physical Exam Vital Signs Temp Pulse Resp BP Pulse Ox 97.8 F 99 19 H 166/99 H 94 11/18/18 09:32 11/18/18 11:56 11/18/18 09:32 11/18/18 09:32 11/18/18 09:32 Oxygen Delivery Method Room Air Weight: 56.2 kg Body Mass Index (BMI) 21.2 Intake and Output for Last 24 Hours 11/16/18 11/17/18 11/18/18 23:59 23:59 23:59 Intake Total 206 / 206 7198 / 7198 3181 / 3181 Balance 98 / 7198 3181 / 3181 Laboratory Tests Past 24 Hrs 11/18/18 04:54 Sodium 130 L Potassium 3.1 L Chloride 94 L Carbon Dioxide 26.0 Anion Gap 10 BUN 3 L Creatinine 0.81 Estim Creat Clear Calc 66.17 Est GFR (MDRD) Af Amer 93 Est GFR (MDRD) Non-Af 77 BUN/Creatinine Ratio 3.7 L Glucose 176 H Calcium 8.3 L Magnesium 1.1 L POC Glucose 11/18/18 11/18/18 11/17/18 11:32 06:35 21:09 POC Glucose 153 H 165 H 169 H 11/17/18 16:19 POC Glucose 196 H Assessment/Plan This patient was seen in conjunction with DALE Palomino . I have independently interviewed and examined the patient and reviewed pertinent his torical, laboratory, and other data. Please refer to DALE Palomino note for details of this patient's presentation, findings, and recommendations. I have reviewed DALE Palomino note and concur with documented findings. In brief, patient is a 58-year-old lady with history of chronic alcohol use who presented with abdominal discomfort associated with intractable nausea and vomiting and assessment of acute ketosis was made admitted to the regular nursing for further management 11/18/2018: Patient seen complains of abdominal cramping. Electrolytes significant for potassium of 3.1, sodium levels of 130 and magnesium of 1.1 Physical Examination: GENERAL: cooperative HEENT: Atraumatic; EYES; Anicteric, NECK; supple, normal thyroid, RESPIRATORY: Diminished to auscultation bilaterally, CARDIOVASCULAR: Regular S1 S2, GI: soft, non-tender, normoactive bowel sounds, : No Renal angle tenderness; EXTREMITIES: No edema, no clubbing, . NEURO: Awake; no lateralizing signs. SKIN: No Rash PSYCH;flat affect Assessment: 1. Acute alcoholic ketosis 2. Suspected gastritis from alcohol use 3. Chronic alcohol use with early withdrawal 4. Hyponatremia secondary to beer potomania 5. Hypokalemia 6. Acute kidney injury 7. Tobacco dependence 8. COPD 9. Depression with anxiety 10. Restless leg syndrome 11. Hypomagnesemia corrected per protocol Recommendations: 1. I have discussed the results of my overview and impressions with the patient 2. Options for management were reviewed Code Visit Inpatient E&M: 01313 Subs Hosp L3
[2018-11-18] MEDS: Lisinopril 2.5 MG Tablet PO (11:21)
[2018-11-18] MEDS: Pantoprazole Sodium 20 MG Tablet PO (11:21)
[2018-11-18] MEDS: buPROPion (SR) 150 MG Tablet.SA PO (11:21)
[2018-11-18] MEDS: Magnesium Oxide 400 MG Tablet PO (11:22)
[2018-11-18] MEDS: Polyethylene Glycol 3350 17 GM PACKET PO (11:30)
[2018-11-18 11:56] LABS: Bedside Glucose 153 mg/dL (70-110)
[2018-11-18] MEDS: Bisacodyl 10 MG Suppository RECTAL (13:39)
[2018-11-18 16:30] LABS: Bedside Glucose 131 mg/dL (70-110)
--- NOTE | 2018-11-18 16:35 | RAD_ITS ---
STUDY: X-RAY - ABDOMEN/PELVIS REASON FOR EXAM: Female, 58 years old. Abdominal pain TECHNIQUE: Single AP view of the abdomen / pelvis. COMPARISON: None. FINDINGS: Normal visualized lung bases. Multiple distended gas-filled loops of small bowel. Gas is also noted in the colon. A few air-fluid levels are noted in the small bowel. Umbilical piercing noted. The visualized liver, spleen and kidneys are grossly normal in size and morphology. Normal soft tissue structures. Normal visualized osseous structures. RAD/Abdomen Single View (Portable) IMPRESSION: Small bowel obstruction versus ileus Electronically Signed: Jasson Dunn MD at 18:01 EDT , Service support ,
--- NOTE | 2018-11-18 18:16 | CT_ITS ---
STUDY: CT ABDOMEN AND PELVIS WITH CONTRAST REASON FOR EXAM: Female, 58 years old. Abdominal pain RADIATION DOSAGE (If Supplied By Facility): CTDIvol = ( 8.63 ) mGy, DLP = ( 425.69 ) mGycm TECHNIQUE: Transaxial images were obtained from the dome of the diaphragm to the symphysis pubis without oral contrast. 100 IV/Oral Isovue 300 was administered. Sagittal and coronal images were reconstructed. Individualized dose optimization techniques were used for this CT. COMPARISON: None. FINDINGS: The visualized lung bases are unremarkable. The visualized portions of the heart are within normal limits. Normal liver. There is a solitary gallstone. Normal spleen. Normal pancreas. Normal bilateral adrenal glands. 12 mm simple right renal cortical cyst. Normal left kidney. Stomach is distended with oral contrast. Small bowel is distended with multiple air-fluid levels and fluid in the mesentery. No bowel wall thickening or pneumatosis. Distal transition point noted. Normal colon. The appendix is visualized and appears normal. Normal abdominal aorta. Normal inferior vena cava. Normal retroperitoneum. Normal urinary bladder. Moderate free fluid is noted in the pelvis. Normal abdominal wall. Normal osseous structures. CT/Abdomen/Pelvis WITH Contrast IMPRESSION: Distal small bowel obstruction and moderate free fluid. Surgical consultation recommended. N.B. : The above information has been verbally conveyed by Jasson Dunn MD to Kirsten Clifton on 11/18/2018 22:17:15 (ET). Electronically Signed: Jasson Dunn MD at 22:19 EDT , Service support ,
[2018-11-18] MEDS: Morphine 2 MG/ML Syringe 1 MG IV (18:41)
[2018-11-18] MEDS: 0.9% Normal Saline 1,000 ML 150 ML IV (18:47)
[2018-11-18 19:34] LABS: Potassium 3.3 mmol/L (3.5-5.1)
[2018-11-18] MEDS: Potassium Chloride 10mEq/100mL 10 MEQ/100 ML IV.SOLN. 100 MEQ IV BOLUS (20:28)
--- NOTE | 2018-11-18 22:48 | RAD_ITS ---
STUDY: X-RAY - ABDOMEN/PELVIS REASON FOR EXAM: Female, 58 years old. NG tube TECHNIQUE: Single AP view of the abdomen / pelvis. COMPARISON: August 26, 2016 FINDINGS: New Enteric tube in the stomach. Intravenous contrast in the collecting systems bilaterally. Normal visualized lung bases. Gas-filled loops of small bowel. Mild edema in the lungs bilaterally. The visualized liver, spleen and kidneys are grossly normal in size and morphology. Normal soft tissue structures. Normal visualized osseous structures. RAD/Abdomen Single View IMPRESSION: New enteric tube in the stomach. Ileus. Mild edema. Electronically Signed: Jasson Dunn MD at 0:50 EDT , Service support ,
--- NOTE | 2018-11-18 22:51 | PCM.HOSP.N ---
Hospitalist Note CT A/P resulted with distal small bowel obstruction and moderate free fluid, maintain NPO, NGT to be placed with abd film following, IV PPI continued repeat KUB in AM, contacted General Surgery Dr. Miranda.
[2018-11-18 22:56] LABS: Bedside Glucose 113 mg/dL (70-110)
[2018-11-19] VITALS (14 sets, daily range): BP systolic 119–162; BP diastolic 70–91; PULSE 85–107; RESP 16–18; TEMP 36.7–37.1; O2SAT 92–95
[2018-11-19] MEDS: Heparin Injection (Vial) 5,000 UNIT/ML VIAL 5000 UNIT SC ×3 (00:06→21:55)
[2018-11-19] MEDS: Potassium Chloride 10mEq/100mL 10 MEQ/100 ML IV.SOLN. 100 MEQ IV BOLUS ×3 (00:07→04:18)
[2018-11-19] MEDS: Morphine 2 MG/ML Syringe IV (02:27)
[2018-11-19] MEDS: 0.9% NaCl Peripheral Flush Adult/Peds IV ×2 (02:27→21:52)
--- NOTE | 2018-11-19 05:55 | RAD_ITS ---
STUDY: X-RAY - ABDOMEN/PELVIS REASON FOR EXAM: Female, 58 years old. History of small bowel obstruction. TECHNIQUE: Single AP view of the abdomen / pelvis. COMPARISON: Comparison is made with prior examination dated November 18, 2018. FINDINGS: And oral gastric tube is seen with the tip in the fundal portion of the stomach. Gas is now seen throughout the colon down to the rectum. There is less small bowel dilatation at this time. The visualized liver, spleen and kidneys are grossly normal in size and morphology. Normal soft tissue structures. Normal visualized osseous structures. RAD/Abdomen Single View IMPRESSION: Gas is seen within the colon down to the rectum. There is less small bowel dilatation at this time. The oral gastric tube is within the fundal portion of the stomach. Electronically Signed: Marty Cam, at 8:44 EDT , Service support ,
[2018-11-19 06:19] LABS: Anion Gap 4 (5-15); BUN 2 mg/dL (7-18); BUN/Creat Ratio 2.9 RATIO (10-20); Chloride 97 mmol/L (98-107); Creatinine, Serum 0.68 mg/dL (0.55-1.02); EST Glomerular Filtration Rate 95 mL/min (>60); Est Glom Filt Rate - Afr Amer 115 mL/min (>60); Estimated Creatinine Clearance 78.82 ml/min; Glucose 89 mg/dL (74-106); Sodium Level 132 mmol/L (136-145)
--- NOTE | 2018-11-19 06:33 | PCM.CONS.GEN ---
Reason for Consult Date of Consultation: 11/19/18 History of Present Illness: The patient is a 58 year old F admitted to the hospital for alcohol withdrawal. Patient is an alcoholic and previously been in rehab but she checked herself out of. She has been in the hospital one other time for alcohol withdrawal. Patient also states that she has been having issues with her stomach for about a month with nausea and vomiting and occasional diarrhea. She states prior to coming in she drank prior to 5 days about 1/5 a day. Patient states here she is only had about a couple bites of food and upright has not really ate much except for 7 days ago however she is unsure what she really ate at that time. Patient has had a hysterectomy as well as bladder sling for abdominal surgeries. She states she has not had a bowel movement for 4 to 5 days except for yesterday she had a hard bowel movement with the help of a suppository. Patient had a KUB which showed an ileus versus small bowel obstruction however she did have gas in the colon, CT abdomen pelvis did show moderate free fluid, dilated small bowel transition point was called distally patient does have stool in the colon. Patient had an NG placed after vomiting had total of 300 cc dark green liquid in the container this morning. Patient states that she needs an EGD as an outpatient due to her stomach issues and she is also due for colonoscopy as she has never had one. Past Medical History Past Medical History (Chronic Problems): Chronic Problems (Last Updated 11/16/18 @ 17:42 by Gonzales De Leon DO) ETOH abuse (Chronic) Medical History: Medical History (Last Updated 11/16/18 @ 17:42 by Gonzales De Leon DO) Hepatotoxicity, secondary to ETOH (Resolved) K70.9 Elevated ETOH level (Acute) R78.0 ETOH abuse (Chronic) F10.10 Abnormal mammogram R92.8 Anxiety F41.9 Bipolar 1 disorder F31.9 COPD (chronic obstructive pulmonary disease) J44.9 History of hysterectomy Z90.710 Insomnia G47.00 Allergies Penicillins Allergy (Verified 07/16/18 15:45) WEAKNESS,VISION ISSUES PT STATES MAKES HER WEAK Home Medications: Ambulatory Orders Medication Instructions Recorded Hydroxyzine HCl 50 mg PO BID PRN PRN 08/11/17 albuterol sulfate 2.5 mg/3 mL 2.5 mg INHALATION Q4H PRN 04/04/18 (0.083 %) solution for nebulization loratadine 10 mg tablet 10 mg PO DAILY 04/04/18 omeprazole 20 mg capsule,delayed 20 mg PO BID cap 04/04/18 release Sucralfate [Carafate] 1 gm PO 4X/DAY 06/15/18 Fluticasone/Vilanterol [Breo 1 puff INHALATION DAILY 07/16/18 Ellipta 100-25 Mcg INH] Albuterol Sulfate [Ventolin Hfa] 1 - 2 puff IH Q6H PRN PRN 11/16/18 Lisinopril 2.5 mg PO DAILY 11/16/18 Mirtazapine 15 mg PO QHS 11/16/18 buPROPion SR [Wellbutrin SR (150mg 150 mg PO BID 11/16/18 tablets)] traMADol [Ultram] 50 mg PO BID PRN PRN 11/16/18 Surgical History: Surgical History (Last Reviewed 07/16/18 @ 15:12 by Tio Conley DO) History of Z98.891 Surgical History: hysterectomy, - - , implantation of bladder sling Psychiatric History: No pertinent psych hx [employer] ME[employer]IC History: No pertinent TR[employer] MECH[employer]IC history Lives: Friends Smoking Status: Current every day smoker Tobacco Use: Cigarettes Alcohol: Heavy - Patient states prior to admit she has had 1/5 of alcohol daily for 5 days Drugs: None - *Family History Maternal Family History: Family History (Last Reviewed 07/16/18 @ 15:12 by Tio Conley DO) Mother Hypertension Thyroid disorder CVA (cerebral vascular accident) Sister Heart disease History Items: No pertinent history Paternal Family History: Family History (Last Reviewed 07/16/18 @ 15:12 by Tio Conley DO) Mother Hypertension Thyroid disorder CVA (cerebral vascular accident) Sister Heart disease History Items: - - Alcoholism Review of Systems Constitutional: Denies: Fever HEENT: Denies: Difficulty Swallowing Cardiovascular: Denies: Chest Pain Respiratory: Denies: Cough Gastrointestinal: Reports: Abdominal Pain, Constipation, Nausea, Vomiting Genitourinary: Denies: Dysuria Skin: Denies: Rash Neurological: Denies: Balance problems Psychiatric: Denies: Suicidal Ideations Hematologic/ Lymphatic: Denies: Easy Bleeding Patient Problems: Active and Suspected Problems (Last Updated 11/16/18 @ 17:42 by Gonzales De Leon DO) Nausea and vomiting (Acute) - Physical Exam General: Alert, Oriented x3, Cooperative, No apparent distress Lungs: Normal air movement Cardiovascular: Regular rate Abdomen: Soft, Distended - Mild to moderate, Tender - Tendon bilateral lower quadrants, equivocal rebound no guarding Extremities: No clubbing, No cyanosis, No edema Neurological: Cranial nerves II-XII grossly intact Psych/Mental Status: Normal Affect Vital Signs Temp Pulse Resp BP Pulse Ox 98.2 F 85 18 119/70 94 11/19/18 05:40 11/19/18 05:40 11/19/18 05:40 11/19/18 05:40 11/19/18 05:40 Oxygen Delivery Method Room Air Weight: 123 lb 14.397 oz Body Mass Index (BMI) 21.2 Intake and Output for Last 24 Hours 11/17/18 11/18/18 11/19/18 23:59 23:59 23:59 Intake Total 7198 / 7198 3481 / 3481 1010 / 1010 Output Total 400 / 400 500 / 500 Balance 7198 / 7198 3081 / 3081 510 / 510 Laboratory Tests Past 24 Hrs 11/18/18 11/19/18 11/19/18 19:05 05:00 05:00 WBC Pending RBC Pending Hgb Pending Hct Pending MCV Pending MCH Pending MCHC Pending RDW Pending RDW Differential Pending Plt Count Pending Neut % (Auto) Pending Absolute Neuts (auto) Pending Total Counted Pending Sodium Potassium 3.3 L Chloride Carbon Dioxide Anion Gap BUN Creatinine Estim Creat Clear Calc Est GFR (MDRD) Af Amer Est GFR (MDRD) Non-Af BUN/Creatinine Ratio Glucose Calcium Magnesium Pending Total Bilirubin Pending Direct Bilirubin Pending AST Pending ALT Pending Alkaline Phosphatase Pending Total Protein Pending Albumin Pending 11/19/18 05:50 WBC RBC Hgb Hct MCV MCH MCHC RDW RDW Differential Plt Count Neut % (Auto) Absolute Neuts (auto) Total Counted Sodium 132 L Potassium 4.0 Chloride 97 L Carbon Dioxide 31.0 Anion Gap 4 L BUN 2 L Creatinine 0.68 Estim Creat Clear Calc 78.82 Est GFR (MDRD) Af Amer 115 Est GFR (MDRD) Non-Af 95 BUN/Creatinine Ratio 2.9 L Glucose 89 Calcium 8.0 L Magnesium Total Bilirubin Direct Bilirubin AST ALT Alkaline Phosphatase Total Protein Albumin POC Glucose 11/18/18 11/18/18 11/18/18 22:48 16:24 11:32 POC Glucose 113 H 131 H 153 H 11/18/18 06:35 POC Glucose 165 H Assessment/Plan All Active Problems (Last Updated 11/16/18 @ 17:42 by Gonzales De Leon DO) YADIRA (acute kidney injury) (Acute) Alcohol withdrawal delirium, acute, hyperactive (Resolved) Nausea and vomiting (Acute) Hepatotoxicity, secondary to ETOH (Resolved) Elevated ETOH level (Acute) 58-year-old female admitted with alcohol withdrawal, history of alcoholism, small bowel obstruction vs ileus 1. Continue n.p.o./IV fluids/NG. On review of CT abdomen pelvis there may be a caliber change the distal terminal ileum but it is difficult to see in the area, patient also has moderate free fluid the question is fluid is due to patient's alcoholism, low albumin, small bowel obstruction or combination. On exam patient is tender to the lower quadrants, no guarding. We will check KUB as well as white blood cell count and lactic acid. ADDENDUM: prealb 13, AST/ALT elevated c/w with alcoholic liver disease, lactic 1.1 and normal WBC, will continue NG to LIWS, give dulcolax suppository-KUB shows gas in colon and less dilated SB Mary Miranda M.D. Pager: [phone] [facility] [address] [place] [address], Out[facility] [address], [address] [place] [address] Office: [phone] Code Visit Inpatient E&M: 25803 Init Hosp L2
--- NOTE | 2018-11-19 06:37 | CON.PCM_ITS ---
Reason for Consult Date of Consultation: 11/19/18 History of Present Illness: The patient is a 58 year old F admitted to the hospital for alcohol withdrawal. Patient is an alcoholic and previously been in rehab but she checked herself out of. She has been in the hospital one other time for alcohol withdrawal. Patient also states that she has been having issues with her stomach for about a month with nausea and vomiting and occasional diarrhea. She states prior to coming in she drank prior to 5 days about 1/5 a day. Patient states here she is only had about a couple bites of food and upright has not really ate much except for 7 days ago however she is unsure what she really ate at that time. Patient has had a hysterectomy as well as bladder sling for abdominal surgeries. She states she has not had a bowel movement for 4 to 5 days except for yesterday she had a hard bowel movement with the help of a suppository. Patient had a KUB which showed an ileus versus small bowel obstruction however she did have gas in the colon, CT abdomen pelvis did show moderate free fluid, dilated small bowel transition point was called distally patient does have stool in the colon. Patient had an NG placed after vomiting had total of 300 cc dark green liquid in the container this morning. Patient states that she needs an EGD as an outpatient due to her stomach issues and she is also due for colonoscopy as she has never had one. Past Medical History Past Medical History (Chronic Problems): Chronic Problems (Last Updated 11/16/18 @ 17:42 by Gonzales De Leon DO) ETOH abuse (Chronic) Medical History: Medical History (Last Updated 11/16/18 @ 17:42 by Gonzales De Leon DO) Hepatotoxicity, secondary to ETOH (Resolved) K70.9 Elevated ETOH level (Acute) R78.0 ETOH abuse (Chronic) F10.10 Abnormal mammogram R92.8 Anxiety F41.9 Bipolar 1 disorder F31.9 COPD (chronic obstructive pulmonary disease) J44.9 History of hysterectomy Z90.710 Insomnia G47.00 Allergies Penicillins Allergy (Verified 07/16/18 15:45) WEAKNESS,VISION ISSUES PT STATES MAKES HER WEAK Home Medications: Ambulatory Orders Medication Instructions Recorded Hydroxyzine HCl 50 mg PO BID PRN PRN 08/11/17 albuterol sulfate 2.5 mg/3 mL 2.5 mg INHALATION Q4H PRN 04/04/18 (0.083 %) solution for nebulization loratadine 10 mg tablet 10 mg PO DAILY 04/04/18 omeprazole 20 mg capsule,delayed 20 mg PO BID cap 04/04/18 release Sucralfate [Carafate] 1 gm PO 4X/DAY 06/15/18 Fluticasone/Vilanterol [Breo 1 puff INHALATION DAILY 07/16/18 Ellipta 100-25 Mcg INH] Albuterol Sulfate [Ventolin Hfa] 1 - 2 puff IH Q6H PRN PRN 11/16/18 Lisinopril 2.5 mg PO DAILY 11/16/18 Mirtazapine 15 mg PO QHS 11/16/18 buPROPion SR [Wellbutrin SR (150mg 150 mg PO BID 11/16/18 tablets)] traMADol [Ultram] 50 mg PO BID PRN PRN 11/16/18 Surgical History: Surgical History (Last Reviewed 07/16/18 @ 15:12 by Tio Conley DO) History of Z98.891 Surgical History: hysterectomy, - - , implantation of bladder sling Psychiatric History: No pertinent psych hx 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 Lives: Friends Smoking Status: Current every day smoker Tobacco Use: Cigarettes Alcohol: Heavy - Patient states prior to admit she has had 1/5 of alcohol daily for 5 days Drugs: None - *Family History Maternal Family History: Family History (Last Reviewed 07/16/18 @ 15:12 by Tio Conley DO) Mother Hypertension Thyroid disorder CVA (cerebral vascular accident) Sister Heart disease History Items: No pertinent history Paternal Family History: Family History (Last Reviewed 07/16/18 @ 15:12 by Tio Conley DO) Mother Hypertension Thyroid disorder CVA (cerebral vascular accident) Sister Heart disease History Items: - - Alcoholism Review of Systems Constitutional: Denies: Fever HEENT: Denies: Difficulty Swallowing Cardiovascular: Denies: Chest Pain Respiratory: Denies: Cough Gastrointestinal: Reports: Abdominal Pain, Constipation, Nausea, Vomiting Genitourinary: Denies: Dysuria Skin: Denies: Rash Neurological: Denies: Balance problems Psychiatric: Denies: Suicidal Ideations Hematologic/ Lymphatic: Denies: Easy Bleeding Patient Problems: Active and Suspected Problems (Last Updated 11/16/18 @ 17:42 by Gonzales De Leon DO) Nausea and vomiting (Acute) - Physical Exam General: Alert, Oriented x3, Cooperative, No apparent distress Lungs: Normal air movement Cardiovascular: Regular rate Abdomen: Soft, Distended - Mild to moderate, Tender - Tendon bilateral lower quadrants, equivocal rebound no guarding Extremities: No clubbing, No cyanosis, No edema Neurological: Cranial nerves II-XII grossly intact Psych/Mental Status: Normal Affect Vital Signs Temp Pulse Resp BP Pulse Ox 98.2 F 85 18 119/70 94 11/19/18 05:40 11/19/18 05:40 11/19/18 05:40 11/19/18 05:40 11/19/18 05:40 Oxygen Delivery Method Room Air Weight: 123 lb 14.397 oz Body Mass Index (BMI) 21.2 Intake and Output for Last 24 Hours 11/17/18 11/18/18 11/19/18 23:59 23:59 23:59 Intake Total 7198 / 7198 3481 / 3481 1010 / 1010 Output Total 400 / 400 500 / 500 Balance 7198 / 7198 3081 / 3081 510 / 510 Laboratory Tests Past 24 Hrs 11/18/18 11/19/18 11/19/18 19:05 05:00 05:00 WBC Pending RBC Pending Hgb Pending Hct Pending MCV Pending MCH Pending MCHC Pending RDW Pending RDW Differential Pending Plt Count Pending Neut % (Auto) Pending Absolute Neuts (auto) Pending Total Counted Pending Sodium Potassium 3.3 L Chloride Carbon Dioxide Anion Gap BUN Creatinine Estim Creat Clear Calc Est GFR (MDRD) Af Amer Est GFR (MDRD) Non-Af BUN/Creatinine Ratio Glucose Calcium Magnesium Pending Total Bilirubin Pending Direct Bilirubin Pending AST Pending ALT Pending Alkaline Phosphatase Pending Total Protein Pending Albumin Pending 11/19/18 05:50 WBC RBC Hgb Hct MCV MCH MCHC RDW RDW Differential Plt Count Neut % (Auto) Absolute Neuts (auto) Total Counted Sodium 132 L Potassium 4.0 Chloride 97 L Carbon Dioxide 31.0 Anion Gap 4 L BUN 2 L Creatinine 0.68 Estim Creat Clear Calc 78.82 Est GFR (MDRD) Af Amer 115 Est GFR (MDRD) Non-Af 95 BUN/Creatinine Ratio 2.9 L Glucose 89 Calcium 8.0 L Magnesium Total Bilirubin Direct Bilirubin AST ALT Alkaline Phosphatase Total Protein Albumin POC Glucose 11/18/18 11/18/18 11/18/18 22:48 16:24 11:32 POC Glucose 113 H 131 H 153 H 11/18/18 06:35 POC Glucose 165 H Assessment/Plan All Active Problems (Last Updated 11/16/18 @ 17:42 by Gonzales De Leon DO) YADIRA (acute kidney injury) (Acute) Alcohol withdrawal delirium, acute, hyperactive (Resolved) Nausea and vomiting (Acute) Hepatotoxicity, secondary to ETOH (Resolved) Elevated ETOH level (Acute) 58-year-old female admitted with alcohol withdrawal, history of alcoholism, small bowel obstruction vs ileus 1. Continue n.p.o./IV fluids/NG. On review of CT abdomen pelvis there may be a caliber change the distal terminal ileum but it is difficult to see in the area, patient also has moderate free fluid the question is fluid is due to patient's alcoholism, low albumin, small bowel obstruction or combination. On exam patient is tender to the lower quadrants, no guarding. We will check KUB as well as white blood cell count and lactic acid. ADDENDUM: prealb 13, AST/ALT elevated c/w with alcoholic liver disease, lactic 1.1 and normal WBC, will continue NG to LIWS, give dulcolax suppository-KUB shows gas in colon and less dilated SB Mary Miranda M.D. Pager: [phone] [facility] [address] [place] [address], Outpatient [place], [address] [place] [address] Office: [phone] Code Visit Inpatient E&M: 67396 Init Hosp L2
[2018-11-19 07:00] LABS: Bedside Glucose 96 mg/dL (70-110)
[2018-11-19] MEDS: Budesonide Respules 0.5 MG/2 ML AMPUL.NEB. INHALATION ×2 (07:25→19:13)
[2018-11-19] MEDS: Ipratropium/Albuterol Sulfate 3 ML AMPUL.NEB INHALATION ×3 (07:25→19:12)
[2018-11-19 07:30] LABS: Absolute Lymphocyte Count 2.48 X10^3/ul (0.83-4.51); Absolute Neutrophil Count 5.5 X10^3/uL (2.0-7.7); Basophil# 0.02 X10^3/uL; Basophil% 0.2 % (0-1); Eosinophil# 0.19 X10^3/uL; Eosinophils% 2.2 % (0-5); Hematocrit 28.8 % (37-47); Hemoglobin 9.7 g/dl (12.0-15.0); Lymphocyte # 2.48 X10^3/ul (4.0); Lymphocyte % 28.3 % (19-41); Mean Corp Hgb Conc 33.7 g/gl (32-36); Mean Corpuscular Hgb 29.4 pg (27.0-32.0); Mean Corpuscular Volume 87.3 fL (81-99); Monocyte# 0.56 X10^3/uL; Monocyte% 6.4 % (0-10); Neutrophil # 5.49 X10^3/uL (2.7-7.7); Neutrophil % 62.6 % (47-70); Platelet Count 181 K/mm3 (150-450); RBC Distribution Width SD 40.2 fl (35.1-43.9); White Blood Count 8.8 K/mm3 (4.4-11.0)
[2018-11-19 07:31] LABS: POSITIVE COUNT NO; POSITIVE DIFFERENTIAL NO; POSITIVE MORPHOLOGY NO
[2018-11-19 07:36] LABS: AST(SGOT) 94 U/L (15-37); Alanine Aminotransfer ALT/SGPT 59 U/L (13-56); Albumin, Serum 3.1 g/dL (3.2-5.0); Alkaline Phosphatase 70 U/L (45-117); Bilirubin, Direct 0.25 mg/dL (0.00-0.30); Globulin 2.9 g/dL (2.2-4.2); Magnesium 2.3 mg/dL (1.6-2.6)
[2018-11-19 07:55] LABS: Lactic Acid 1.1 mmol/L (0.4-2.0)
[2018-11-19] MEDS: traMADol 50 MG Tablet PO ×2 (10:06→20:08)
[2018-11-19] MEDS: Magnesium Oxide 400 MG Tablet PO ×2 (10:08→17:31)
[2018-11-19] MEDS: Thiamine Hydrochloride 100 MG Tablet PO (10:08)
[2018-11-19] MEDS: Multivitamins,Ther W-Minerals Tablet 1 TABLET PO (10:08)
[2018-11-19] MEDS: buPROPion (SR) 150 MG Tablet.SA PO ×2 (10:08→21:55)
[2018-11-19] MEDS: Lisinopril 2.5 MG Tablet PO (10:09)
[2018-11-19] MEDS: Bisacodyl 10 MG Suppository RECTAL (10:11)
[2018-11-19] MEDS: Polyethylene Glycol 3350 17 GM PACKET PO ×2 (10:11→17:40)
[2018-11-19] MEDS: 0.9% Normal Saline 1,000 ML 150 ML IV ×2 (10:28→17:31)
[2018-11-19 11:30] LABS: Bedside Glucose 100 mg/dL (70-110)
--- NOTE | 2018-11-19 13:08 | PN_ITS ---
<Kirsten Clifton - Last Filed: 11/19/18 13:09> Patient Problems: Active and Suspected Problems (Last Updated 11/16/18 @ 17:42 by Gonzales De Leon DO) Nausea and vomiting (Acute) Subjective: Patient seen and examined. NG tube in place. Reports abdominal pain is improved. Complains of discomfort regarding NG tube. Otherwise denies current complaints. - Physical Exam General: Alert, Oriented x3, Cooperative HEENT: Atraumatic, PERRLA, EOMI, Normocephalic Oral: Dry Mucosa Neck: Supple, No JVD, Negative Carotid Bruits Lungs: Clear to auscultation, Normal air movement Cardiovascular: Regular rate, Regular Rhythm, Normal S1, Normal S2, No murmurs Abdomen: Bowel Sounds Present, Soft, Non-Distended, Tender, - - NG tube in place Extremities: No clubbing, No cyanosis, No edema, Capillary Refill Less than 3 Seconds Skin: No rashes, No breakdown Musculoskeletal: No Tenderness to Palpation of Joints or Extremities Neurological: Cranial nerves II-XII grossly intact, Neuro grossly intact Psych/Mental Status: Normal Affect, Appropriate Vital Signs Temp Pulse Resp BP Pulse Ox 98.7 F 90 16 136/83 H 93 11/19/18 10:01 11/19/18 11:02 11/19/18 10:01 11/19/18 10:01 11/19/18 10:01 Oxygen Delivery Method Room Air Weight: 123 lb 14.397 oz Body Mass Index (BMI) 21.2 Intake and Output for Last 24 Hours 11/17/18 11/18/18 11/19/18 23:59 23:59 23:59 Intake Total 7198 / 7198 3481 / 3481 1010 / 1010 Output Total 400 / 400 550 / 550 Balance 7198 / 7198 3081 / 3081 460 / 460 Laboratory Tests Past 24 Hrs 11/18/18 11/19/18 11/19/18 19:05 05:00 05:00 WBC 8.8 RBC 3.30 L Hgb 9.7 L Hct 28.8 L MCV 87.3 MCH 29.4 MCHC 33.7 RDW 13.0 RDW Differential 40.2 Plt Count 181 MPV 9.0 Immature Gran % (Auto) 0.300 Neut % (Auto) 62.6 Lymph % (Auto) 28.3 [place]as[place] % (Auto) 6.4 Eos % (Auto) 2.2 Baso % (Auto) 0.2 Absolute Neuts (auto) 5.5 Absolute Lymphs (auto) 2.48 Total Counted Not Reportable Sodium Potassium 3.3 L Chloride Carbon Dioxide Anion Gap BUN Creatinine Estim Creat Clear Calc Est GFR (MDRD) Af Amer Est GFR (MDRD) Non-Af BUN/Creatinine Ratio Glucose Lactic Acid Calcium Magnesium 2.3 Total Bilirubin 0.60 Direct Bilirubin 0.25 AST 94 H ALT 59 H Alkaline Phosphatase 70 Total Protein 6.0 L Albumin 3.1 L Globulin 2.9 Prealbumin 11/19/18 11/19/18 11/19/18 05:50 05:50 07:17 WBC RBC Hgb Hct MCV MCH MCHC RDW RDW Differential Plt Count MPV Immature Gran % (Auto) Neut % (Auto) Lymph % (Auto) [place]as[place] % (Auto) Eos % (Auto) Baso % (Auto) Absolute Neuts (auto) Absolute Lymphs (auto) Total Counted Sodium 132 L Potassium 4.0 Chloride 97 L Carbon Dioxide 31.0 Anion Gap 4 L BUN 2 L Creatinine 0.68 Estim Creat Clear Calc 78.82 Est GFR (MDRD) Af Amer 115 Est GFR (MDRD) Non-Af 95 BUN/Creatinine Ratio 2.9 L Glucose 89 Lactic Acid 1.1 Calcium 8.0 L Magnesium Total Bilirubin Direct Bilirubin AST ALT Alkaline Phosphatase Total Protein Albumin Globulin Prealbumin 13.0 L POC Glucose 11/19/18 11/19/18 11/18/18 11:25 06:36 22:48 POC Glucose 100 96 113 H 11/18/18 16:24 POC Glucose 131 H Medical Necessity - Tobacco Use Smoking Status: Current every day smoker Tobacco Use: Cigarettes Assessment/Plan All Active Problems (Last Updated 11/16/18 @ 17:42 by Gonzales De Leon DO) YADIRA (acute kidney injury) (Acute) Alcohol withdrawal delirium, acute, hyperactive (Resolved) Nausea and vomiting (Acute) Hepatotoxicity, secondary to ETOH (Resolved) Elevated ETOH level (Acute) 1. Small bowel obstruction versus ileus-KUB completed yesterday due to abdominal pain and vomiting. Showed small bowel obstruction versus ileus. Consult placed to general surgery, Dr. Miranda. NG tube in place. N.p.o. IV fluids. CT of abdomen showed caliber change at the distal terminal ileum, moderate free fluid. Repeat KUB shows less small bowel dilatation. Continue IV PPI. Repeat Dulcolax suppository. Patient reports episode of diarrhea this morning. 2. Non-diabetic alcoholic ketoacidosis-resolved. 3. Alcohol withdrawal on chronic alcohol abuse-requesting [facility] services. Medical stabilization per protocol. Continue thiamine, folic acid, multivitamin supplementation. Patient JOSSYWA has been 6-7. She has not needed frequent ativan. She already has outpatient follow up with outpatient counseling. She denies other needs at discharge. If she remains stable, will discharge tomorrow with continued outpatient follow up. [facility] not formally consulted. 4. Hypovolemic hyponatremia/beer protomania-stable. Trend BMP. 5. Hypokalemia-replace per protocol. Trend BMP. 6. Acute kidney injury-suspect secondary to dehydration as a result of nausea and vomiting as well as alcohol use. Resolved with IV fluids. Trend BMP. 7. Chronic abdominal pain-continue home PPI, sucralfate regimen. Lipase within normal limits. 8. Chronic COPD-no acute exacerbation. As needed albuterol aerosol. 9. Hypertension-stable, continue lisinopril regimen. 10. Anxiety/depression-continue Wellbutrin, hydroxyzine regimen. 11. RLS-continue mirtazapine regimen. 12. Alcoholic liver disease, chronic-liver profile appears improved from prior labs. Outpatient follow-up. DVT prophylaxis-heparin subcu This patient was seen by DALE Palomino under the supervision of Dr. Garcia. <Nathanael Garcia F - Last Filed: 11/19/18 14:29> - Physical Exam Vital Signs Temp Pulse Resp BP Pulse Ox 98.7 F 91 16 136/83 H 93 11/19/18 10:01 11/19/18 13:36 11/19/18 13:36 11/19/18 10:01 11/19/18 10:01 Oxygen Delivery Method Room Air Weight: 123 lb 14.397 oz Body Mass Index (BMI) 21.2 Intake and Output for Last 24 Hours 11/17/18 11/18/18 11/19/18 23:59 23:59 23:59 Intake Total 7198 / 7198 3481 / 3481 1160 / 1160 Output Total 400 / 400 550 / 550 Balance 7198 / 7198 3081 / 3081 610 / 610 Laboratory Tests Past 24 Hrs 11/18/18 11/19/18 11/19/18 19:05 05:00 05:00 WBC 8.8 RBC 3.30 L Hgb 9.7 L Hct 28.8 L MCV 87.3 MCH 29.4 MCHC 33.7 RDW 13.0 RDW Differential 40.2 Plt Count 181 MPV 9.0 Immature Gran % (Auto) 0.300 Neut % (Auto) 62.6 Lymph % (Auto) 28.3 Pleas[place] % (Auto) 6.4 Eos % (Auto) 2.2 Baso % (Auto) 0.2 Absolute Neuts (auto) 5.5 Absolute Lymphs (auto) 2.48 Total Counted Not Reportable Sodium Potassium 3.3 L Chloride Carbon Dioxide Anion Gap BUN Creatinine Estim Creat Clear Calc Est GFR (MDRD) Af Amer Est GFR (MDRD) Non-Af BUN/Creatinine Ratio Glucose Lactic Acid Calcium Magnesium 2.3 Total Bilirubin 0.60 Direct Bilirubin 0.25 AST 94 H ALT 59 H Alkaline Phosphatase 70 Total Protein 6.0 L Albumin 3.1 L Globulin 2.9 Prealbumin 11/19/18 11/19/18 11/19/18 05:50 05:50 07:17 WBC RBC Hgb Hct MCV MCH MCHC RDW RDW Differential Plt Count MPV Immature Gran % (Auto) Neut % (Auto) Lymph % (Auto) [place]as[place] % (Auto) Eos % (Auto) Baso % (Auto) Absolute Neuts (auto) Absolute Lymphs (auto) Total Counted Sodium 132 L Potassium 4.0 Chloride 97 L Carbon Dioxide 31.0 Anion Gap 4 L BUN 2 L Creatinine 0.68 Estim Creat Clear Calc 78.82 Est GFR (MDRD) Af Amer 115 Est GFR (MDRD) Non-Af 95 BUN/Creatinine Ratio 2.9 L Glucose 89 Lactic Acid 1.1 Calcium 8.0 L Magnesium Total Bilirubin Direct Bilirubin AST ALT Alkaline Phosphatase Total Protein Albumin Globulin Prealbumin 13.0 L POC Glucose 11/19/18 11/19/18 11/18/18 11:25 06:36 22:48 POC Glucose 100 96 113 H 11/18/18 16:24 POC Glucose 131 H Code Visit Addendum: Dr. Garcia I personally examined the patient and reviewed the chart. I agree with the above. 58-year-old female presented to the hospital with nausea and vomiting. She is an alcoholic and has been drinking heavily for the last 3 to 4 days prior to admission. She was found to have alcoholic ketoacidosis however she also then underwent a CT scan for abdominal discomfort and constipation, and was found to have either an ileus or small bowel stricture. Surgery was consulted who recommended placement of an NG as well as n.p.o. status and IV fluids. We will continue to monitor NG output and make any adjustments as necessary. Provide Chloraseptic Opal for the irritation by the NG tube Inpatient E&M: [id number] Subs Hosp L2
[2018-11-19 17:10] LABS: Bedside Glucose 82 mg/dL (70-110)
--- NOTE | 2018-11-19 17:10 | NURSING ---
Checked residual through NGT and there were 0cc returned. Dr. Miranda made aware. New orders to remove NGT and start clear liquids. She also wants patient to have a second dose of Miralax today. Orders placed. Patient made aware.
[2018-11-19] MEDS: proMETHazine 25 MG/ML Syringe 6.25 MG IV (21:52)
[2018-11-19] MEDS: Mirtazapine 15 MG Tablet PO (21:55)
[2018-11-19 22:05] LABS: Bedside Glucose 100 mg/dL (70-110)
[2018-11-20] VITALS (24 sets, daily range): BP systolic 146–192; BP diastolic 80–103; PULSE 87–114; RESP 16–22; TEMP 36.6–37.1; O2SAT 88–99
[2018-11-20] MEDS: 0.9% Normal Saline 1,000 ML 150 ML IV ×4 (01:14→22:30)
[2018-11-20] MEDS: 0.9% NaCl Peripheral Flush Adult/Peds IV ×2 (02:19→04:30)
[2018-11-20] MEDS: hydrALAZINE 20 MG/ML Vial 10 MG IV ×2 (02:19→14:14)
[2018-11-20] MEDS: Morphine 2 MG/ML Syringe IV ×2 (04:30→11:11)
[2018-11-20 06:39] LABS: Hemoglobin 9.6 g/dl (12.0-15.0); Mean Corp Hgb Conc 33.1 g/gl (32-36); Mean Corpuscular Hgb 29.4 pg (27.0-32.0); Mean Corpuscular Volume 88.7 fL (81-99); Mean Platelet Vol. 9.1 fl (6.2-12.0); Platelet Count 170 K/mm3 (150-450); RBC Distribution Width CV 13.3 % (11.6-14.6); RBC Distribution Width SD 41.9 fl (35.1-43.9); Red Blood Count 3.27 M/mm3 (4.2-5.4); White Blood Count 7.8 K/mm3 (4.4-11.0)
[2018-11-20 06:44] LABS: Scan Indicated on CBC? Y/N NO
[2018-11-20] MEDS: Ipratropium/Albuterol Sulfate 3 ML AMPUL.NEB INHALATION ×3 (06:53→18:45)
[2018-11-20] MEDS: Budesonide Respules 0.5 MG/2 ML AMPUL.NEB. INHALATION ×2 (06:53→18:46)
[2018-11-20 06:56] LABS: Bedside Glucose 107 mg/dL (70-110)
[2018-11-20 06:56] LABS: Anion Gap 7 (5-15); BUN 3 mg/dL (7-18); BUN/Creat Ratio 4.7 RATIO (10-20); Calcium,Total 8.4 mg/dL (8.5-10.1); Chloride 103 mmol/L (98-107); Creatinine, Serum 0.64 mg/dL (0.55-1.02); EST Glomerular Filtration Rate 102 mL/min (>60); Est Glom Filt Rate - Afr Amer 123 mL/min (>60); Estimated Creatinine Clearance 83.75 ml/min; Glucose 101 mg/dL (74-106); Potassium 3.7 mmol/L (3.5-5.1); Sodium Level 137 mmol/L (136-145)
[2018-11-20] MEDS: traMADol 50 MG Tablet PO (08:12)
[2018-11-20] MEDS: Magnesium Oxide 400 MG Tablet PO ×2 (08:57→15:52)
[2018-11-20] MEDS: Multivitamins,Ther W-Minerals Tablet 1 TABLET PO (08:57)
[2018-11-20] MEDS: Heparin Injection (Vial) 5,000 UNIT/ML VIAL 5000 UNIT SC ×2 (08:58→22:30)
[2018-11-20] MEDS: Polyethylene Glycol 3350 17 GM PACKET PO (08:59)
[2018-11-20] MEDS: Lisinopril 2.5 MG Tablet PO (09:00)
[2018-11-20] MEDS: buPROPion (SR) 150 MG Tablet.SA PO ×2 (09:00→22:31)
--- NOTE | 2018-11-20 09:57 | PCM.PN.SRG ---
Patient Problems: Active and Suspected Problems (Last Updated 11/16/18 @ 17:42 by Gonzales De Leon DO) Nausea and vomiting (Acute) Subjective: Patient is evaluated sitting comfortably in a chair. She notes last night she had severe amount of abdominal pain. Patient had attempted to have a bowel movement without success. She noted having to have pain medication and oxygen. Patient notes the discomfort is improved this morning. She denies nausea, vomiting. She noted having 3 loose stools yesterday. - Physical Exam General: Alert, Oriented x3, Cooperative Abdomen: Bowel Sounds Present, Soft, Distended - slightly, Tender - slightly Vital Signs Temp Pulse Resp BP Pulse Ox 98.2 F 88 18 148/92 H 97 11/20/18 08:09 11/20/18 08:09 11/20/18 08:09 11/20/18 08:09 11/20/18 08:09 Oxygen Flow Rate (L/min) 1 Oxygen Delivery Method Nasal Cannula Weight: 123 lb 14.397 oz Body Mass Index (BMI) 21.2 Intake and Output for Last 24 Hours 11/18/18 11/19/18 11/20/18 23:59 23:59 23:59 Intake Total 3481 / 3481 4091 / 4091 940 / 940 Output Total 400 / 400 650 / 650 Balance 3081 / 3081 3441 / 3441 940 / 940 Laboratory Tests Past 24 Hrs 11/20/18 11/20/18 06:03 06:03 WBC 7.8 RBC 3.27 L Hgb 9.6 L Hct 29.0 L MCV 88.7 MCH 29.4 MCHC 33.1 RDW 13.3 RDW Differential 41.9 Plt Count 170 MPV 9.1 Sodium 137 Potassium 3.7 Chloride 103 Carbon Dioxide 27.0 Anion Gap 7 BUN 3 L Creatinine 0.64 Estim Creat Clear Calc 83.75 Est GFR (MDRD) Af Amer 123 Est GFR (MDRD) Non-Af 102 BUN/Creatinine Ratio 4.7 L Glucose 101 Calcium 8.4 L POC Glucose 11/20/18 11/19/18 11/19/18 06:43 22:01 17:00 POC Glucose 107 100 82 11/19/18 11:25 POC Glucose 100 Medical Necessity - Tobacco Use Smoking Status: Current every day smoker Tobacco Use: Cigarettes Assessment/Plan All Active Problems (Last Updated 11/16/18 @ 17:42 by Gonzales De Leon DO) YADIRA (acute kidney injury) (Acute) Alcohol withdrawal delirium, acute, hyperactive (Resolved) Nausea and vomiting (Acute) Hepatotoxicity, secondary to ETOH (Resolved) Elevated ETOH level (Acute) I am following this patient in conjunction with Dr. Miranda Impression: Ileus Recommend suppositories today Start ensure clear Patient will need an upper and lower scope as an outpatient with Dr. Miranda We will continue to monitor this patient Code Visit Inpatient E&M: [id number] Subs Hosp L1
--- NOTE | 2018-11-20 10:28 | RAD_ITS ---
STUDY: X-RAY - ABDOMEN/PELVIS REASON FOR EXAM: Female, 58 years old. Abdominal pain. TECHNIQUE: AP supine and upright views of the abdomen and pelvis. COMPARISON: Comparison is made with prior study dated November 19, 2018. FINDINGS: Mild increased markings at the right lung base suggestive of atelectasis and/or infiltrate. There are dilated loops of the small intestine with a non-distended colon consistent with a small bowel obstruction. There is no demonstrated free abdominal air. The visualized liver, spleen and kidneys are grossly normal in size and morphology. Normal soft tissue structures. Mild dextroscoliosis. RAD/Abd Inc Decub and/or Erect IMPRESSION: Small bowel obstruction. Electronically Signed: Marty Cam, at 9:37 EDT , Service support ,
[2018-11-20] MEDS: Ensure Clear 120 ML Liquid PO ×4 (10:40→22:30)
[2018-11-20] MEDS: Bisacodyl 10 MG Suppository RECTAL (10:40)
--- NOTE | 2018-11-20 13:01 | PCM.PROGNOTE ---
<Kirsten Clifton - Last Filed: 11/20/18 13:15> Patient Problems: Active and Suspected Problems (Last Updated 11/16/18 @ 17:42 by Gonzales De Leon DO) Nausea and vomiting (Acute) Subjective: Patient seen and examined. NG removed last evening. Reports increased abdominal pain overnight. No nausea, emesis. Denies further BM or passing flatus. Patient reports increased pain following oral intake with clear liquids. - Physical Exam General: Alert, Oriented x3, Cooperative HEENT: Atraumatic, PERRLA, EOMI, Normocephalic Neck: Supple, No JVD, Negative Carotid Bruits Lungs: Clear to auscultation, Normal air movement Cardiovascular: Regular rate, Regular Rhythm, Normal S1, Normal S2, No murmurs Abdomen: Bowel Sounds Present, Soft, Non Tender, Non-Distended Extremities: No clubbing, No cyanosis, No edema, Capillary Refill Less than 3 Seconds Skin: No rashes, No breakdown Musculoskeletal: No Tenderness to Palpation of Joints or Extremities Neurological: Cranial nerves II-XII grossly intact, Neuro grossly intact Psych/Mental Status: Normal Affect, Appropriate Vital Signs Temp Pulse Resp BP Pulse Ox 98.2 F 90 18 148/92 H 97 11/20/18 08:09 11/20/18 11:57 11/20/18 08:09 11/20/18 08:09 11/20/18 08:09 Oxygen Flow Rate (L/min) 1 Oxygen Delivery Method Nasal Cannula Weight: 123 lb 14.397 oz Body Mass Index (BMI) 21.2 Intake and Output for Last 24 Hours 11/18/18 11/19/18 11/20/18 23:59 23:59 23:59 Intake Total 3481 / 3481 4091 / 4091 2106 Output Total 400 / 400 650 / 650 5 / 5 Balance 3081 / 3081 3441 / 3441 2101 Laboratory Tests Past 24 Hrs 11/20/18 11/20/18 06:03 06:03 WBC 7.8 RBC 3.27 L Hgb 9.6 L Hct 29.0 L MCV 88.7 MCH 29.4 MCHC 33.1 RDW 13.3 RDW Differential 41.9 Plt Count 170 MPV 9.1 Sodium 137 Potassium 3.7 Chloride 103 Carbon Dioxide 27.0 Anion Gap 7 BUN 3 L Creatinine 0.64 Estim Creat Clear Calc 83.75 Est GFR (MDRD) Af Amer 123 Est GFR (MDRD) Non-Af 102 BUN/Creatinine Ratio 4.7 L Glucose 101 Calcium 8.4 L POC Glucose 11/20/18 11/19/18 11/19/18 06:43 22:01 17:00 POC Glucose 107 100 82 Medical Necessity - Tobacco Use Smoking Status: Current every day smoker Tobacco Use: Cigarettes Assessment/Plan All Active Problems (Last Updated 11/16/18 @ 17:42 by Gonzales De Leon DO) YADIRA (acute kidney injury) (Acute) Alcohol withdrawal delirium, acute, hyperactive (Resolved) Nausea and vomiting (Acute) Hepatotoxicity, secondary to ETOH (Resolved) Elevated ETOH level (Acute) 1. Small bowel obstruction versus ileus, more likely ileus-Initial KUB showed small bowel obstruction versus ileus. General surgery, Dr. Miranda following. CT of abdomen showed caliber change at the distal terminal ileum, moderate free fluid. NG tube removed 11/19/18. Repeat KUB today pending. Surgery recommending additional suppository. If she is not able to tolerate clear liquid diet, NG may need to be replaced. Patient will need further outpatient follow-up for EGD/colonoscopy. 2. Non-diabetic alcoholic ketoacidosis-resolved. 3. Alcohol withdrawal on chronic alcohol abuse- Continue thiamine, folic acid, multivitamin supplementation. CIWA protocol. She already has outpatient follow up with outpatient counseling. She denies other needs at discharge. 4. Hypovolemic hyponatremia/beer protomania-Resolved. Trend BMP. 5. Hypokalemia-replace per protocol. Trend BMP. 6. Acute kidney injury-suspect secondary to dehydration as a result of nausea and vomiting as well as alcohol use. Resolved with IV fluids. Trend BMP. 7. Chronic abdominal pain-continue home PPI, sucralfate regimen. Lipase within normal limits. Outpatient follow up as noted above. 8. Chronic COPD-no acute exacerbation. As needed albuterol aerosol. 9. Hypertension-stable, continue lisinopril regimen. 10. Anxiety/depression-continue Wellbutrin, hydroxyzine regimen. 11. RLS-continue mirtazapine regimen. 12. Alcoholic liver disease, chronic-liver profile appears improved from prior labs. Outpatient follow-up. DVT prophylaxis-heparin subcu This patient was seen by DALE Palomino under the supervision of Dr. Garcia. <Nathanael Garcia F - Last Filed: 11/20/18 14:40> - Physical Exam Vital Signs Temp Pulse Resp BP Pulse Ox 98.1 F 90 18 158/96 H 96 11/20/18 14:11 11/20/18 14:14 11/20/18 14:11 11/20/18 14:11 11/20/18 14:11 Oxygen Flow Rate (L/min) 1 Oxygen Delivery Method Nasal Cannula Weight: 123 lb 14.397 oz Body Mass Index (BMI) 21.2 Intake and Output for Last 24 Hours 11/18/18 11/19/18 11/20/18 23:59 23:59 23:59 Intake Total 3481 / 3481 4091 / 4091 210 / 2107 Output Total 400 / 400 650 / 650 5 / 5 Balance 3081 / 3081 3441 / 3441 2101 / 2101 Laboratory Tests Past 24 Hrs 11/20/18 11/20/18 06:03 06:03 WBC 7.8 RBC 3.27 L Hgb 9.6 L Hct 29.0 L MCV 88.7 MCH 29.4 MCHC 33.1 RDW 13.3 RDW Differential 41.9 Plt Count 170 MPV 9.1 Sodium 137 Potassium 3.7 Chloride 103 Carbon Dioxide 27.0 Anion Gap 7 BUN 3 L Creatinine 0.64 Estim Creat Clear Calc 83.75 Est GFR (MDRD) Af Amer 123 Est GFR (MDRD) Non-Af 102 BUN/Creatinine Ratio 4.7 L Glucose 101 Calcium 8.4 L POC Glucose 11/20/18 11/19/18 11/19/18 06:43 22:01 17:00 POC Glucose 107 100 82 Code Visit Addendum: Dr. Garcia I personally examined the patient and reviewed the chart. I agree with the above. 58-year-old female presenting to the hospital with nausea and vomiting, she is an alcoholic and had been drinking heavily for 2 to 3 days prior to her admission and was found to have alcoholic ketoacidosis which has resolved. However afterwards she was found to have a small bowel obstruction and had an NG tube placed. The NG tube was removed last night and she has been advanced to clears though she has not had any flatus or bowel movement today. We will continue to monitor and appreciate surgical assistance with management of her SBO. Inpatient E&M: 14527 [facility] Hosp L2
[2018-11-20] MEDS: LORazepam 1 MG Tablet 2 MG PO (15:52)
--- NOTE | 2018-11-20 18:07 | DCINST_ITS ---
- Discharge Diagnoses Current Active Problems: Current Active and Chronic Problems (Last Updated 11/16/18 @ 17:42 by Gonzales De Leon DO) Nausea and vomiting (Acute) Allergies/Adverse Reactions: Allergies Penicillins Allergy (Verified 07/16/18 15:45) WEAKNESS,VISION ISSUES PT STATES MAKES HER WEAK Medications to take at Discharge Hydroxyzine HCl 50 mg PO BID PRN PRN 08/11/17 albuterol sulfate 2.5 mg/3 mL (0.083 %) solution for nebulization 2.5 mg INHALATION Q4H PRN 04/04/18 loratadine 10 mg tablet 10 mg PO DAILY 04/04/18 omeprazole 20 mg capsule,delayed release 20 mg PO BID cap 04/04/18 Sucralfate [Carafate] 1 gm PO 4X/DAY 06/15/18 Fluticasone/Vilanterol [Breo Ellipta 100-25 Mcg INH] 1 puff INHALATION DAILY 07/16/18 Albuterol Sulfate [Ventolin Hfa] 1 - 2 puff IH Q6H PRN PRN 11/16/18 Lisinopril 2.5 mg PO DAILY 11/16/18 Mirtazapine 15 mg PO QHS 11/16/18 buPROPion SR [Wellbutrin SR (150mg tablets)] 150 mg PO BID 11/16/18 traMADol [Ultram] 50 mg PO BID PRN PRN 11/16/18 Primary Care Physician: Kellie Delarosa DO [Primary Care Provider] - Test Results: Test results from this visit will be discussed in further detail at your follow- up appointment, if applicable.
[2018-11-20] MEDS: Mirtazapine 15 MG Tablet PO (22:30)
[2018-11-20 22:40] LABS: Bedside Glucose 96 mg/dL (70-110)
[2018-11-21] VITALS (7 sets, daily range): BP systolic 148–150; BP diastolic 71–84; PULSE 85–104; RESP 14–20; TEMP 36.7–37; O2SAT 96–98
[2018-11-21 05:43] LABS: Hematocrit 28.1 % (37-47); Hemoglobin 9.1 g/dl (12.0-15.0); Mean Corp Hgb Conc 32.4 g/gl (32-36); Mean Corpuscular Hgb 28.9 pg (27.0-32.0); Mean Corpuscular Volume 89.2 fL (81-99); Mean Platelet Vol. 8.8 fl (6.2-12.0); Platelet Count 171 K/mm3 (150-450); RBC Distribution Width CV 13.7 % (11.6-14.6); RBC Distribution Width SD 42.5 fl (35.1-43.9); Red Blood Count 3.15 M/mm3 (4.2-5.4); White Blood Count 8.4 K/mm3 (4.4-11.0)
[2018-11-21 05:45] LABS: Scan Indicated on CBC? Y/N NO
[2018-11-21 05:57] LABS: Anion Gap 6 (5-15); BUN 3 mg/dL (7-18); BUN/Creat Ratio 4.7 RATIO (10-20); Calcium,Total 8.7 mg/dL (8.5-10.1); Chloride 105 mmol/L (98-107); Creatinine, Serum 0.64 mg/dL (0.55-1.02); EST Glomerular Filtration Rate 101 mL/min (>60); Est Glom Filt Rate - Afr Amer 123 mL/min (>60); Estimated Creatinine Clearance 83.75 ml/min; Glucose 85 mg/dL (74-106); Sodium Level 137 mmol/L (136-145)
[2018-11-21] MEDS: Ipratropium/Albuterol Sulfate 3 ML AMPUL.NEB INHALATION ×2 (07:06→12:53)
[2018-11-21] MEDS: Budesonide Respules 0.5 MG/2 ML AMPUL.NEB. INHALATION (07:06)
[2018-11-21] MEDS: 0.9% Normal Saline 1,000 ML 100 ML IV (07:16)
--- NOTE | 2018-11-21 08:27 | PN.SURG_ITS ---
Patient Problems: Active and Suspected Problems (Last Updated 11/16/18 @ 17:42 by Goznales De Leon DO) Nausea and vomiting (Acute) Subjective: Patient evaluated sitting comfortably in the chair. She notes feeling improved since yesterday. She had 2 bowel movements yesterday. She denies nausea, vomiting. - Physical Exam General: Alert, Oriented x3, Cooperative Abdomen: Bowel Sounds Present, Soft, Non Tender, Distended - very slightly Vital Signs Temp Pulse Resp BP Pulse Ox 98.6 F 96 14 148/84 H 96 11/21/18 02:30 11/21/18 03:02 11/21/18 02:30 11/21/18 02:30 11/21/18 02:40 Oxygen Flow Rate (L/min) 1 Oxygen Delivery Method Room Air Weight: 123 lb 14.397 oz Body Mass Index (BMI) 21.2 Intake and Output for Last 24 Hours 11/19/18 11/20/18 11/21/18 23:59 23:59 23:59 Intake Total 4091 / 4091 4709 / 4709 744 / 744 Output Total 650 / 650 5 / 5 Balance 3441 / 3441 4704 / 4704 744 / 744 Laboratory Tests Past 24 Hrs 11/21/18 11/21/18 05:25 05:25 WBC 8.4 RBC 3.15 L Hgb 9.1 L Hct 28.1 L MCV 89.2 MCH 28.9 MCHC 32.4 RDW 13.7 RDW Differential 42.5 Plt Count 171 MPV 8.8 Sodium 137 Potassium 4.0 Chloride 105 Carbon Dioxide 26.0 Anion Gap 6 BUN 3 L Creatinine 0.64 Estim Creat Clear Calc 83.75 Est GFR (MDRD) Af Amer 123 Est GFR (MDRD) Non-Af 101 BUN/Creatinine Ratio 4.7 L Glucose 85 Calcium 8.7 POC Glucose 11/20/18 22:36 POC Glucose 96 Medical Necessity - Tobacco Use Smoking Status: Current every day smoker Tobacco Use: Cigarettes Assessment/Plan All Active Problems (Last Updated 11/16/18 @ 17:42 by Gonzales De Leon DO) YADIRA (acute kidney injury) (Acute) Alcohol withdrawal delirium, acute, hyperactive (Resolved) Nausea and vomiting (Acute) Hepatotoxicity, secondary to ETOH (Resolved) Elevated ETOH level (Acute) I am following this patient in conjunction with Dr. Miranda Impression: Ileus Continue ensure clear Repeat KUB ordered Patient to continue on softer foods Patient should be able to be discharged to home on a soft food diet. Patient will need an upper and lower scope as an outpatient with Dr. Miranda Follow-up with Dr. Miranda in 1 week to discuss scopes We will continue to monitor this patient Code Visit Inpatient E&M: [id number] [facility] Hosp L1
--- NOTE | 2018-11-21 09:20 | RAD_ITS ---
STUDY: X-RAY - ABDOMEN/PELVIS REASON FOR EXAM: Female, 58 years old. Abdominal pain TECHNIQUE: KUB COMPARISON: 11/18/2018 FINDINGS: Persistent mild gaseous distention of multiple loops of small bowel in the mid and left abdomen, improved, favoring ileus. Scattered gas in the large bowel, no significant stool burden. No evidence of free air. Hepatomegaly. RAD/Abdomen Single View (Portable) IMPRESSION: Improved gaseous distention of the small bowel may reflect improving ileus or improving partial small bowel obstruction. Electronically Signed: Irineo Jimenez MD at 12:47 EDT Tel , Service support ,
[2018-11-21] MEDS: Lisinopril 2.5 MG Tablet PO (09:38)
[2018-11-21] MEDS: buPROPion (SR) 150 MG Tablet.SA PO (09:38)
[2018-11-21] MEDS: Magnesium Oxide 400 MG Tablet PO (09:38)
[2018-11-21] MEDS: Heparin Injection (Vial) 5,000 UNIT/ML VIAL 5000 UNIT SC (09:38)
[2018-11-21] MEDS: Multivitamins,Ther W-Minerals Tablet 1 TABLET PO (09:38)
[2018-11-21] MEDS: LORazepam 1 MG Tablet 2 MG PO ×2 (09:42→13:49)
[2018-11-21] MEDS: Ensure Clear 120 ML Liquid PO (09:46)
--- NOTE | 2018-11-21 11:39 | DCINST_ITS ---
- Discharge Diagnoses Current Active Problems: Current Active and Chronic Problems (Last Updated 11/16/18 @ 17:42 by Gonzales De Leon DO) Nausea and vomiting (Acute) You will use the following diet at home:: Other - Soft foods, advance as tolerated. Recommend continue ensure clear. Your food should be the consistency of: Soft (bite-sized & easy to chew/swallow) Discharge Activity: Return to Normal Activity Call your doctor if you observe: Shortness of breath, Dizziness, Fainting spells, Chest pain Allergies/Adverse Reactions: Allergies Penicillins Allergy (Verified 07/16/18 15:45) WEAKNESS,VISION ISSUES PT STATES MAKES HER WEAK Medications to take at Discharge Hydroxyzine HCl 50 mg PO BID PRN PRN 08/11/17 albuterol sulfate 2.5 mg/3 mL (0.083 %) solution for nebulization 2.5 mg INHALATION Q4H PRN 04/04/18 loratadine 10 mg tablet 10 mg PO DAILY 04/04/18 Sucralfate [Carafate] 1 gm PO 4X/DAY 06/15/18 Fluticasone/Vilanterol [Breo Ellipta 100-25 Mcg INH] 1 puff INHALATION DAILY 07/16/18 Albuterol Sulfate [Ventolin Hfa] 1 - 2 puff IH Q6H PRN PRN 11/16/18 Mirtazapine 15 mg PO QHS 11/16/18 buPROPion SR [Wellbutrin SR (150mg tablets)] 150 mg PO BID 11/16/18 traMADol [Ultram] 50 mg PO BID PRN PRN 11/16/18 Lisinopril [Zestril] 10 mg PO DAILY #30 tablet 11/21/18 Pantoprazole Sodium [Protonix] 40 mg PO BID #50 tablet 11/21/18 The following prescriptions were given: Lisinopril [Zestril] 10 mg PO DAILY #30 tablet Pantoprazole Sodium [Protonix] 40 mg PO BID #50 tablet Primary Care Physician: Kellie Delarosa DO [Primary Care Provider] - Please follow up with your Primary Care Physician in: 1 Week Test Results: Test results from this visit will be discussed in further detail at your follow- up appointment, if applicable. Please Follow Up With: Mary Miranda MD When: 1 Week Proposed Discharge Date: 11/21/18
--- NOTE | 2018-11-21 11:46 | DS.PCM_ITS ---
<Kirsten Clifton - Last Filed: 11/21/18 11:46> Discharge Date and Diagnosis Date of Admission: 11/16/18 Date of Discharge: 11/21/18 - Primary Discharge Diagnosis Active and Suspected Problems (Last Updated 11/16/18 @ 17:42 by Gonzales De Leon DO) 1. Ileus, SBO ruled out 2. Non-diabetic alcoholic ketoacidosis 3. Alcohol withdrawal on chronic alcohol abuse 4. Hypovolemic hyponatremia/beer protomania 5. Hypokalemia 6. Acute kidney injury 7. Chronic abdominal pain 8. Chronic COPD 9. Hypertension 10. Anxiety/depression 11. RLS 12. Alcoholic liver disease, chronic - Secondary Discharge Diagnosis Chronic Problems (Last Updated 11/16/18 @ 17:42 by Gonzales De Leon DO) ETOH abuse (Chronic) Hospital Course and Treatment Imaging Results: Diagnostic Data Abdomen/Pelvis CT 11/18/18 18:16 IMPRESSION: Distal small bowel obstruction and moderate free fluid. Surgical consultation recommended. N.B. : The above information has been verbally conveyed by Jasson Dunn MD to Kirsten Clifton on 11/18/2018 22:17:15 (ET). Electronically Signed: Jasson Dunn MD at 22:19 EDT , Service support , ADDENDUM: 11/18/186 IMPRESSION: Distal small bowel obstruction and moderate free fluid. Surgical consultation recommended. N.B. : The above information has been verbally conveyed by Jasson Dunn MD to Kirsten Clifton on 11/18/2018 22:17:15 (ET). Electronically Signed: Jasson Dunn MD at 22:19 EDT , Service support , ADDENDUM: 11/18/183 Dr. Miranda- General Surgery Operations: None Procedures: None Summary of Care Provided: The patient is a 58 year old F admitted 11/16/2017 due to nausea, vomiting. 1. Ileus, SBO ruled out-Initial KUB showed small bowel obstruction versus ileus. General surgery, Dr. Miranda consulted during admission. CT of abdomen showed caliber change at the distal terminal ileum, moderate free fluid. NG tube removed 11/19/18. Repeat KUB improved from prior. Patient will need further outpatient follow-up for EGD/colonoscopy. Soft diet at discharge, advance as tolerated. Follow-up with Dr. Miranda in 1 week. Home PPI increased to 40 mg twice daily. Follow-up with primary care provider in 1 week. 2. Non-diabetic alcoholic ketoacidosis-resolved. 3. Alcohol withdrawal on chronic alcohol abuse- Outpatient follow up with counseling. She denies other needs at discharge. 4. Hypovolemic hyponatremia/beer protomania-Resolved. Trend BMP. 5. Hypokalemia-replace per protocol. Resolved. 6. Acute kidney injury-suspect secondary to dehydration as a result of nausea and vomiting as well as alcohol use. Resolved with IV fluids. Trend BMP. 7. Chronic abdominal pain-continue home PPI, sucralfate regimen. Lipase within normal limits. Outpatient follow up as noted above. 8. Chronic COPD-no acute exacerbation. Continue home inhaler regimen. 9. Hypertension-blood pressure above goal during admission. Home lisinopril regimen increased to 10 mg daily. 10. Anxiety/depression-continue Wellbutrin, hydroxyzine regimen. 11. RLS-continue mirtazapine regimen. 12. Alcoholic liver disease, chronic-liver profile appears improved from prior labs. Outpatient follow-up. General: Alert, Oriented x3, Cooperative HEENT: Atraumatic, PERRLA, EOMI, Normocephalic Neck: Supple, No JVD, Negative Carotid Bruits Lungs: Clear to auscultation, Normal air movement Cardiovascular: Regular rate, Regular Rhythm, Normal S1, Normal S2, No murmurs Abdomen: Bowel Sounds Present, Soft, Non Tender, Non-Distended Extremities: No clubbing, No cyanosis, No edema, Capillary Refill Less than 3 Seconds Skin: No rashes, No breakdown Musculoskeletal: No Tenderness to Palpation of Joints or Extremities Neurological: Cranial nerves II-XII grossly intact, Neuro grossly intact Psych/Mental Status: Normal Affect, Appropriate Patient seen and examined prior to discharge. Physical assessment as noted above. Patient is stable for discharge with follow up recommendations as noted above. This patient was seen by DALE Palomino under the supervision of Dr. Garcia. - Physical Exam Vital Signs Temp Pulse Resp BP Pulse Ox 98.0 F 104 H 16 150/71 H 98 11/21/18 09:31 11/21/18 09:31 11/21/18 09:31 11/21/18 09:31 11/21/18 09:31 Oxygen Flow Rate (L/min) 1 Oxygen Delivery Method Room Air Weight: 123 lb 14.397 oz Body Mass Index (BMI) 21.2 Intake and Output for Last 24 Hours 11/19/18 11/20/18 11/21/18 23:59 23:59 23:59 Intake Total 4091 / 4091 4709 / 4709 744 / 744 Output Total 650 / 650 5 / 5 Balance 3441 / 3441 4704 / 4704 744 / 744 Laboratory Tests Past 24 Hrs 11/21/18 11/21/18 05:25 05:25 WBC 8.4 RBC 3.15 L Hgb 9.1 L Hct 28.1 L MCV 89.2 MCH 28.9 MCHC 32.4 RDW 13.7 RDW Differential 42.5 Plt Count 171 MPV 8.8 Sodium 137 Potassium 4.0 Chloride 105 Carbon Dioxide 26.0 Anion Gap 6 BUN 3 L Creatinine 0.64 Estim Creat Clear Calc 83.75 Est GFR (MDRD) Af Amer 123 Est GFR (MDRD) Non-Af 101 BUN/Creatinine Ratio 4.7 L Glucose 85 Calcium 8.7 POC Glucose 11/20/18 22:36 POC Glucose 96 Discharge Diet: Soft diet Discharge Activity: Return to Normal Activity Call your doctor if you observe: Shortness of breath, Dizziness, Fainting spells, Chest pain Home Medications: Medications to take at Discharge Hydroxyzine HCl 50 mg PO BID PRN PRN 08/11/17 albuterol sulfate 2.5 mg/3 mL (0.083 %) solution for nebulization 2.5 mg INHALATION Q4H PRN 04/04/18 loratadine 10 mg tablet 10 mg PO DAILY 04/04/18 Sucralfate [Carafate] 1 gm PO 4X/DAY 06/15/18 Fluticasone/Vilanterol [Breo Ellipta 100-25 Mcg INH] 1 puff INHALATION DAILY 07/16/18 Albuterol Sulfate [Ventolin Hfa] 1 - 2 puff IH Q6H PRN PRN 11/16/18 Mirtazapine 15 mg PO QHS 11/16/18 buPROPion SR [Wellbutrin SR (150mg tablets)] 150 mg PO BID 11/16/18 traMADol [Ultram] 50 mg PO BID PRN PRN 11/16/18 Lisinopril [Zestril] 10 mg PO DAILY #30 tablet 11/21/18 Pantoprazole Sodium [Protonix] 40 mg PO BID #50 tablet 11/21/18 Following Prescrptions Were Given to Patient: Lisinopril [Zestril] 10 mg PO DAILY #30 tablet Pantoprazole Sodium [Protonix] 40 mg PO BID #50 tablet Primary Care Physician: Kellie Delarosa DO [Primary Care Provider] - Please follow up with your Primary Care Physician in: 1 Week Please Follow Up With: Mary Miranda MD When: 1 Week Disposition: Home Minutes spent on discharge:: 35 Patient Condition:: Stable Medical Necessity - Tobacco Use Smoking Status: Current every day smoker Tobacco Use: Cigarettes Meaningful Use Info Meaningful Use Diagnoses (Choose all that apply): None applicable <Nathanael Garcia F - Last Filed: 11/21/18 14:47> Discharge Date and Diagnosis - Secondary Discharge Diagnosis Chronic Problems (Last Updated 11/16/18 @ 17:42 by Gonzales De Leon DO) ETOH abuse (Chronic) Hospital Course and Treatment Imaging Results: 11/21/18 09:20 KUB [Abdomen Single View (Portable)] [RAD] Urgent Summary of Care Provided: The patient is a 58 year old F [] - Physical Exam Vital Signs Temp Pulse Resp BP Pulse Ox 98.0 F 104 H 16 150/71 H 98 11/21/18 09:31 11/21/18 09:31 11/21/18 09:31 11/21/18 09:31 11/21/18 09:31 Oxygen Flow Rate (L/min) 1 Oxygen Delivery Method Room Air Weight: 123 lb 14.397 oz Body Mass Index (BMI) 21.2 Intake and Output for Last 24 Hours 11/19/18 11/20/18 11/21/18 23:59 23:59 23:59 Intake Total 4091 / 4091 4709 / 4709 1491 / 1491 Output Total 650 / 650 5 / 5 Balance 3441 / 3441 4704 / 4704 1491 / 1491 Laboratory Tests Past 24 Hrs 11/21/18 11/21/18 05:25 05:25 WBC 8.4 RBC 3.15 L Hgb 9.1 L Hct 28.1 L MCV 89.2 MCH 28.9 MCHC 32.4 RDW 13.7 RDW Differential 42.5 Plt Count 171 MPV 8.8 Sodium 137 Potassium 4.0 Chloride 105 Carbon Dioxide 26.0 Anion Gap 6 BUN 3 L Creatinine 0.64 Estim Creat Clear Calc 83.75 Est GFR (MDRD) Af Amer 123 Est GFR (MDRD) Non-Af 101 BUN/Creatinine Ratio 4.7 L Glucose 85 Calcium 8.7 POC Glucose 11/20/18 22:36 POC Glucose 96 Code Visit Addendum: Dr. Garcia I personally examined the patient and reviewed the chart. I agree with the above. 58-year-old female presenting to the hospital with nausea and vomiting. She had been having a few drinks prior to admission and initially was developing ketoacidosis which has resolved. However she was also found to than have a small bowel obstruction and had an NG tube placed. She has since had some flatus though no significant bowel movement. She had the NG removed and she was advanced to a soft diet today which she tolerated for lunch and would like to go home. I did discuss with her the risks of going home and that if she were to develop any more nausea vomiting or abdominal pain that she is to present back to the hospital. She expressed understanding and agreed to the plan. Inpatient E&M: [id number] [facility] Hosp
--- NOTE | 2018-11-21 14:00 | PCM.WORK.EX ---
Work/School Excuse Work/School Excuse for:: Patient Please excuse this person from:: Work From: 11/16/18 through: 11/29/18
--- NOTE | 2018-11-22 14:51 | CASEMGMT ---
SURINDER CURRY DC PHONE CALL DC DATE: 11/21/18 DC Disposition: Home LACE/STRATA: 20/10 Attempted call to patient's cell phone. Message machine had name identifier, so message left with call back # if pt had questions re: instructions, prescriptions or f/u. A.Antwon BSN RN AC
== END 2018-11-21 15:07 | disposition home or self-care (01) | DRG 247 ==
LOC: ED 13:17 → PCU 16:16
PROVIDERS: Internal Medicine; Nurse Practitioner Family; Surgery; Admitting Provider Internal Medicine; Emergency Provider Emergency Medicine; Family Provider Family Medicine; PCP Family Medicine; Visit Provider Family Medicine
DX: K56.7 Ileus, unspecified (principal); E87.2 Acidosis; N17.9 Acute kidney failure, unspecified; E87.1 Hypo-osmolality and hyponatremia; F10.229 Alcohol dependence with intoxication, unspecified; Y90.6 Blood alcohol level of 120-199 mg/100 ml; J44.9 Chronic obstructive pulmonary disease, unspecified; I10 Essential (primary) hypertension; F10.239 Alcohol dependence with withdrawal, unspecified; K70.9 Alcoholic liver disease, unspecified; E86.0 Dehydration; G25.81 Restless legs syndrome; E87.6 Hypokalemia; R10.9 Unspecified abdominal pain; F32.9 Major depressive disorder, single episode, unspecified; F41.9 Anxiety disorder, unspecified; G89.29 Other chronic pain; F17.210 Nicotine dependence, cigarettes, uncomplicated; E83.42 Hypomagnesemia
CPT/HCPCS: 36415; 74018; 74019; 74177; 80048; 80053; 80076; 80320; 82009; 82962; 83605; 83690; 83735; 84132; 84134; 85025; 85027; 85610; 94640; 97110; 97162; 97166; 97530; 97535; 97802; 99284; J7030; J7040; Q9967; A4216; G0480; J2405; J7799

== ENCOUNTER 2018-12-05 13:24 | Inpatient (IN) | payer MEDICAID, SELFPAY ==
[2018-11-16 16:47] VITALS: BMI 21.2
[2018-12-05] VITALS (9 sets, daily range): BP systolic 102–154; BP diastolic 58–91; PULSE 79–100; RESP 16–18; TEMP 36.8–37.1; O2SAT 94–100; BMI 20.6; BMI 20.7; BMI 21.2
--- NOTE | 2018-12-05 13:47 | ED.VISSUMM ---
- ER Visit Summary Date of Service: 12/05/18 Chief Complaint: Abdominal pain History of Present Illness: The patient is a 58 F who has abdominal pain as well as nausea and vomiting. It started 4 days ago. She drinks 2 to 3 pints of vodka a day. Her last drink was around midnight. She has a burning throughout her entire abdomen. She has had nausea and has been vomiting as well. No diarrhea or urinary symptoms. No fevers. She normally takes Carafate but states that when she starts drinking she does not remember to take it. Physical Examination: Vital signs reviewed. HEENT exam unremarkable. Heart is tachycardic and regular rhythm without murmurs. Lungs are clear to auscultation. Abdomen is soft with diffuse tenderness. There is no rebound or guarding. Extremities reveal no edema. Skin exam normal. Neurologic exam normal. Test Results: Hemoglobin 11.7, sodium 126, chloride 87, bicarb 18. BUN 39 and creatinine 3.32. Her baseline is 0.9. Liver enzymes are slightly elevated secondary to her alcohol dependence. Alcohol level was 79 Emergency Department Course and Treatment: Patient was given morphine and Zofran for pain. She was given 2 L of normal saline. Patient will be admitted to the hospital for her dehydration for fluids. Treatment Plan: [] Disposition: Admit Impression: Dehydration, acute kidney injury, alcohol dependence This note was generated with [employer] dictation software. It may contain incorrect words, spelling, and punctuation that were not noted in review of the chart prior to signing ED Disposition - Plan for ED Patient: Referrals: Kellie Delarosa DO [Primary Care Provider] -
[2018-12-05] MEDS: Morphine 4 MG/ML Syringe IV (13:54)
[2018-12-05] MEDS: 0.9% Normal Saline 1,000 ML 1000 ML IV (13:54)
[2018-12-05] MEDS: Ondansetron 4 MG/2 ML Vial IV (13:55)
[2018-12-05 14:35] LABS: Absolute Lymphocyte Count 0.86 X10^3/ul (0.83-4.51); Absolute Neutrophil Count 8.2 X10^3/uL (2.0-7.7); Basophil# 0.01 X10^3/uL; Basophil% 0.1 % (0-1); Hematocrit 34.7 % (37-47); Hemoglobin 11.7 g/dl (12.0-15.0); Lymphocyte # 0.86 X10^3/ul (4.0); Lymphocyte % 8.9 % (19-41); Mean Corp Hgb Conc 33.7 g/gl (32-36); Mean Corpuscular Hgb 28.9 pg (27.0-32.0); Mean Corpuscular Volume 85.7 fL (81-99); Mean Platelet Vol. 8.7 fl (6.2-12.0); Monocyte% 6.2 % (0-10); Neutrophil # 8.23 X10^3/uL (2.7-7.7); Neutrophil % 84.7 % (47-70); Platelet Count 210 K/mm3 (150-450); RBC Distribution Width CV 13.8 % (11.6-14.6); RBC Distribution Width SD 43.2 fl (35.1-43.9); Red Blood Count 4.05 M/mm3 (4.2-5.4); White Blood Count 9.7 K/mm3 (4.4-11.0)
[2018-12-05 14:36] LABS: POSITIVE COUNT NO; POSITIVE DIFFERENTIAL NO; POSITIVE MORPHOLOGY NO
[2018-12-05 14:45] LABS: AST(SGOT) 90 U/L (15-37); Alanine Aminotransfer ALT/SGPT 57 U/L (13-56); Albumin, Serum 3.7 g/dL (3.2-5.0); Alkaline Phosphatase 92 U/L (45-117); Anion Gap 21 (5-15); BUN 39 mg/dL (7-18); BUN/Creat Ratio 11.7 RATIO (10-20); Bilirubin, Direct 0.43 mg/dL (0.00-0.30); Calcium,Total 8.8 mg/dL (8.5-10.1); Chloride 87 mmol/L (98-107); Creatinine, Serum 3.32 mg/dL (0.55-1.02); EST Glomerular Filtration Rate 15 mL/min (>60); Est Glom Filt Rate - Afr Amer 18 mL/min (>60); Estimated Creatinine Clearance 16.11 ml/min; Globulin 4.4 g/dL (2.2-4.2); Glucose 72 mg/dL (74-106); Lipase 183 U/L (73-393); Potassium 4.3 mmol/L (3.5-5.1); Protein, Total 8.1 g/dL (6.4-8.2); Sodium Level 126 mmol/L (136-145)
[2018-12-05] MEDS: 0.9% Normal Saline 1,000 ML 999 ML IV (15:24)
--- NOTE | 2018-12-05 15:51 | PCM.HP.STD ---
Problem List (1) YADIRA (acute kidney injury) Status: Acute (2) Nausea and vomiting Status: Acute Qualifiers: Vomiting type: unspecified Vomiting Intractability: unspecified Qualified Code(s): R11.2 - Nausea with vomiting, unspecified (3) ETOH abuse Status: Chronic (4) COPD (chronic obstructive pulmonary disease) Status: Chronic Qualifiers: COPD type: unspecified COPD Qualified Code(s): J44.9 - Chronic obstructive pulmonary disease, unspecified (5) Depression Status: Chronic Qualifiers: Depression Type: major depressive disorder Major depression recurrence: recurrent Active/Remission status: remission status unspecified Qualified Code(s): F33.9 - Major depressive disorder, recurrent, unspecified (6) Hypertension Status: Chronic Qualifiers: Hypertension type: essential hypertension Qualified Code(s): I10 - Essential (primary) hypertension History of Present Illness Date of Admission: 12/05/18 Chief Complaint: Abdominal pain - off and on for about 2 months. Nausea and vomiting - 1 day The patient is a 58 year old F with PMHx of chronic alcohol use disorder, hypertension, COPD, not on oxygen, anxiety/depression who has been drinking heavily for more than 4 days associated with severe nausea and vomiting and crampy abdominal pain. Abdominal pain is improved at the time of being seen. Denied any diarrhea, fever, chills, SOB, chest pain Patient admits to drinking more than 1 to 2 pints of vodka every day. She is willing to seek help to stop drinking as she feels it is wrecking her body. She has been falling, fell twice yesterday and once today, feels that she fell because she lost her balance or drank too much and passed out. She complains of pain in the posterior aspect of the head. Vitals in the ED showed temperature of 98.2F, heart rate 99, blood pressure 102/58, respiratory rate of 16, SPO2 100% on room air. Her admitting blood work showed WBC count of 9.7, hemoglobin 11.7, platelet count 210, sodium 126, potassium 4.2, chloride 87, bicarbonate 18, BUN 39, creatinine was 3.32, baseline creatinine was 0.64, lactic acid is 2.2, direct bilirubin is 0.43, AST is 90, ALT is 57, ALP is 92, alcohol level is 79. Past Medical History Past Medical History (Chronic Problems): Chronic Problems (Last Updated 11/16/18 @ 17:42 by Gonzales D eLeon DO) COPD (chronic obstructive pulmonary disease) (Chronic) Depression (Chronic) Hypertension (Chronic) ETOH abuse (Chronic) Medical History: Medical History (Last Updated 11/16/18 @ 17:42 by Gonzales De Leon DO) Hepatotoxicity, secondary to ETOH (Resolved) K70.9 Elevated ETOH level (Acute) R78.0 ETOH abuse (Chronic) F10.10 Abnormal mammogram R92.8 Anxiety F41.9 Bipolar 1 disorder F31.9 COPD (chronic obstructive pulmonary disease) J44.9 History of hysterectomy Z90.710 Insomnia G47.00 Allergies Penicillins Allergy (Verified 12/05/18 13:29) WEAKNESS,VISION ISSUES PT STATES MAKES HER WEAK Home Medications: Ambulatory Orders Medication Instructions Recorded Hydroxyzine HCl 50 mg PO BID PRN PRN 08/11/17 albuterol sulfate 2.5 mg/3 mL 2.5 mg INHALATION Q4H PRN 04/04/18 (0.083 %) solution for nebulization loratadine 10 mg tablet 10 mg PO DAILY 04/04/18 Sucralfate [Carafate] 1 gm PO 4X/DAY 06/15/18 Fluticasone/Vilanterol [Breo 1 puff INHALATION DAILY 07/16/18 Ellipta 100-25 Mcg INH] Albuterol Sulfate [Ventolin Hfa] 1 - 2 puff IH Q6H PRN PRN 11/16/18 Mirtazapine 15 mg PO QHS 11/16/18 buPROPion SR [Wellbutrin SR (150mg 150 mg PO BID 11/16/18 tablets)] Pantoprazole Sodium [Protonix] 40 mg PO BID #50 tablet 11/21/18 Lisinopril [Zestril] 20 mg PO DAILY 12/05/18 Surgical History: Surgical History (Last Reviewed 07/16/18 @ 15:12 by Tio Conley DO) History of Z98.891 Surgical History: hysterectomy, - - , implantation of bladder sling Psychiatric History: No pertinent psych hx IRRIGATOR OVERHEAD History: No pertinent IRRIGATOR OVERHEAD history Lives: Alone Smoking Status: Current every day smoker Tobacco Use: Cigarettes Alcohol: Heavy Drugs: None - *Family History Maternal Family History: Family History (Last Reviewed 07/16/18 @ 15:12 by Tio Conley DO) Mother Hypertension Thyroid disorder CVA (cerebral vascular accident) Sister Heart disease History Items: Hypertension, Stroke, - - Thyroid disease Paternal Family History: Family History (Last Reviewed 07/16/18 @ 15:12 by Tio Conley DO) Mother Hypertension Thyroid disorder CVA (cerebral vascular accident) Sister Heart disease History Items: - - Alcoholism Sibling Family History: Family History (Last Reviewed 07/16/18 @ 15:12 by Tio Conley DO) Mother Hypertension Thyroid disorder CVA (cerebral vascular accident) Sister Heart disease History Items: Heart Disease Review of Systems Constitutional: Reports: Malaise, Weakness, Fatigue. Denies: Chills, Fever, Weight Change Eyes: Denies: Blurred vision, Cataracts, Conjunctivae Inflammation, Pain, Redness, Vision Change HEENT: Reports: Head Aches. Denies: Difficulty Hearing, Difficulty Swallowing, Hearing Changes, Sinus Congestion, Sinus Drainage Cardiovascular: Denies: Chest Pain, Claudication, Orthopnea, Palpitations Respiratory: Denies: Cough, Hemoptysis, Shortness of breath at rest, Shortness of breath upon exertion, Sputum production Gastrointestinal: Reports: Abdominal Pain, Nausea, Vomiting. Denies: Hematemesis, Hematochezia, Melena Genitourinary: Denies: Dysuria, Frequency, Incontinence Gynecological: Denies: Vaginal discharge, Vaginal itching Musculoskeletal: Denies: Joint Pain, Joint stiffness, Joint swelling, Joint Tenderness Skin: Denies: Pruritis, Rash, Wounds Neurological: Denies: Difficulty swallowing, Focal weakness, Numbness, Tingling Psychiatric: Denies: Anxiety, Depression, Homicidal Ideations, Suicidal Ideations Hematologic/ Lymphatic: Denies: Easy Bruising, Easy Bleeding VTE Information - Inpt Only VTE Present on Admission: No VTE Pharm Prophylaxis ordered?: Yes - Physical Exam General: Alert, Oriented x3, Cooperative, No apparent distress, - - appears comfortable HEENT: Atraumatic, PERRLA, EOMI, Normocephalic Oral: Dry Mucosa Neck: Supple, No JVD, Negative Carotid Bruits Lungs: Clear to auscultation, Normal air movement Cardiovascular: Regular rate, Regular Rhythm, Normal S1, Normal S2, No murmurs Abdomen: Bowel Sounds Present, Soft, Non Tender, Non-Distended, No Hepato-splenomegaly Extremities: No edema Skin: No rashes, No breakdown Musculoskeletal: No Tenderness to Palpation of Joints or Extremities Lymphatic: No Cervical, Supraclavicular, or Inguinal Adenopathy Neurological: Cranial nerves II-XII grossly intact, Neuro grossly intact Psych/Mental Status: Normal Affect, Appropriate Vital Signs Temp Pulse Resp BP Pulse Ox 98.2 F 79 16 120/69 97 12/05/18 13:25 12/05/18 15:23 12/05/18 15:23 12/05/18 15:23 12/05/18 15:23 Oxygen Delivery Method Room Air Weight: 54.6 kg Body Mass Index (BMI) 20.6 Laboratory Tests Past 24 Hrs 12/05/18 12/05/18 12/05/18 14:20 14:20 14:20 WBC 9.7 RBC 4.05 L Hgb 11.7 L Hct 34.7 L MCV 85.7 MCH 28.9 MCHC 33.7 RDW 13.8 RDW Differential 43.2 Plt Count 210 MPV 8.7 Immature Gran % (Auto) 0.100 Neut % (Auto) 84.7 H Lymph % (Auto) 8.9 L [place] % (Auto) 6.2 Eos % (Auto) 0.0 Baso % (Auto) 0.1 Absolute Neuts (auto) 8.2 H Absolute Lymphs (auto) 0.86 Total Counted Not Reportable Sodium 126 L Potassium 4.3 Chloride 87 L Carbon Dioxide 18.0 L Anion Gap 21 H BUN 39 H Creatinine 3.32 H Estim Creat Clear Calc 16.11 Est GFR (MDRD) Af Amer 18 L Est GFR (MDRD) Non-Af 15 L BUN/Creatinine Ratio 11.7 Glucose 72 L Calcium 8.8 Total Bilirubin 0.90 Direct Bilirubin 0.43 H AST 90 H ALT 57 H Alkaline Phosphatase 92 Total Protein 8.1 Albumin 3.7 Globulin 4.4 H Lipase 183 Ethyl Alcohol 79.0 Assessment/Plan All Active Problems (Last Updated 11/16/18 @ 17:42 by Gonzales De Leon DO) YADIRA (acute kidney injury) (Acute) Alcohol withdrawal delirium, acute, hyperactive (Acute) Nausea and vomiting (Acute) Hepatotoxicity, secondary to ETOH (Resolved) Elevated ETOH level (Acute) 58 year old F with PMHx of chronic alcohol use disorder, hypertension, COPD, not on oxygen, anxiety/depression who has been drinking heavily for more than 4 days associated with severe nausea and vomiting and crampy abdominal pain as well as headaches after repeated falls. 1. Acute kidney injury, pre-renal secondary to dehydration from intractable nausea and vomiting from acute alcohol binge Admitting creatinine of 3.32 patient with baseline creatinine of 0.64 Home lisinopril on hold Plan: Admit to MedSurg, IV fluids, IV emetics, ultrasound of the kidneys, strict I's and O's, repeat blood work in a.m. 2. Abdominal pain, history of gastritis, on PPI and sucralfate, will continue same 3. Chronic alcohol use disorder, heavy, admitting alcohol level was 79, slight elevation in LFTs likely indicative of injury from alcohol vs cirrhosis Put on alcohol withdrawal protocol with Ativan, [facility] to see patient, continue on thiamine, folic acid, multivitamins 4. Elevated lactic acid, unclear etiology, less likely secondary to ischemic bowels as clinical exam does not support it, no signs of sepsis, will trend 5. Hypertension, patient appears to be fluctuating, lisinopril on hold on account of acute kidney injury, will put patient on as needed hydralazine 6. Anxiety/depression, on Remeron and bupropion 7. COPD, not in acute exacerbation, continue on Breo, PRN breathing treatments 8. Nicotine dependence, advised to quit, will put on replacement 9. DVT PPx- Heparin SC Code Visit Inpatient E&M: 33296 Init Hosp L3
--- NOTE | 2018-12-05 16:28 | CASEMGMT ---
RN CM Assessment Introduced role of RN CM to patient and patient friend Víctor at bedside.? Patient is alert, oriented and able?to participate in RN CM Assessment. ?Care providers, pharmacy, and demographics verified. Presentation: N/V x4 days, not eating, Abd Burning. H/o Alcohol Abuse-drinks 2-3 pints Vodka/Day, last drink around Midnight. Seen by [facility] in ER- patient unsure of plan, wants to quit drinking but does not want Inpatient Detox per patient discussion in ER, [facility] to continue to follow for DC planning and follow up. Admit Dx: Abd Pain, YADIRA Re-Admit: Yes, Inpt 11/16-11/21/18 for Alcoholic Ketoacidosis Barriers/Issues: None. Patient reports working 3 days a week and stopped going to support groups/meetings [id number] ago. Had an appointment today that she missed with Dr Miranda- states is supposed to have an upper and lower scope done d/t ongoing Abd Pain. Will need to reschedule appointment. PCP: Kellie Delarosa Specialists: Gen Surgeon- Dr Miranda Preferred Pharmacy: [facility] [place], [place] Insurance: [employer] Rx Benefit: Yes? LNOK: Son Ron Gonzales LW/HPOA: No, Declines offered information/services at this time Living Arrangements:? Lives with her friend Víctor in a mobile home, 2 steps to enter ADL?s: Independent with ambulation and ADL's Transportation: Friend Víctor transports and same on DC DME: Nebulizer. PCP ordered shower chair- just waiting on insurance to approve and deliver. HHC: None SNF: None Goal: Home, does not think will have any needs DC PLAN: Home with no anticipated needs identified at this time, [facility] to f/u. S. EDVIN Leal
[2018-12-05 16:41] LABS: Lactic Acid 2.2 mmol/L (0.4-2.0)
--- NOTE | 2018-12-05 17:00 | US_ITS ---
STUDY: RENAL ULTRASOUND - COMPLETE REASON FOR EXAM: Female, 58 years old. Acute renal failure. TECHNIQUE: Ultrasound evaluation of kidneys was performed with real-time and static carranza-scale imaging. COMPARISON: CT of the abdomen and pelvis, November 18, 2018. FINDINGS: RIGHT KIDNEY: Normal location of the right kidney, which is normal in size. The right kidney measures 9.5 cm. There is mildly increased renal cortical echogenicity similar to the adjacent liver. The renal cortex measures 1.2 cm. There is an anechoic structure measuring 1.4 x 1 point by 0.8 cm thought to correlate with the cyst seen on CT. There are no right renal calculi. There is no right hydronephrosis. DISTAL RIGHT URETER: There is non-visualization of the distal right ureter. There is no demonstrated right ureterovesical junction calculus. There is no demonstrated right ureteral jet. LEFT KIDNEY: Normal location of the left kidney, which is normal in size. The left kidney measures 10.2 cm. There is increased renal cortical echogenicity. The renal cortex measures 1.1 cm. There is no left renal mass or cyst. There are no left renal calculi. There is no left hydronephrosis. DISTAL LEFT URETER: There is non-visualization of the distal left ureter. There is no demonstrated left ureterovesical junction calculus. There is no demonstrated left ureteral jet. BLADDER: The distended urinary bladder has a volume of 370 ml. . There is a normal wall thickness of the distended urinary bladder. There is no demonstrated mass within the urinary bladder. There are no demonstrated bladder calculi. US/Kidney and Bladder IMPRESSION: 1. Mildly increased renal cortical echogenicity. Medical renal disease cannot be ruled out. 2. Right renal cyst. 3. Normal urinary bladder. Electronically Signed: Ernst Wyatt DO at 19:00 EDT Tel [phone], Service support ,
[2018-12-05] MEDS: LORazepam 1 MG Tablet PO ×2 (17:17→19:46)
[2018-12-05 17:25] LABS: Bedside Glucose 79 mg/dL (70-110)
[2018-12-05] MEDS: 0.9% Normal Saline 1,000 ML 150 ML IV (17:55)
[2018-12-05] MEDS: Folic Acid 1 MG Tablet PO (17:56)
--- NOTE | 2018-12-05 18:18 | CT_ITS ---
STUDY: CT BRAIN WITHOUT CONTRAST REASON FOR EXAM: Female, 58 years old. Headache. Multiple falls. Alcohol abuse. Bipolar disease. RADIATION DOSAGE (If Supplied By Facility): CTDIvol = ( 44.99 ) mGy, DLP = ( 796.11 ) mGycm TECHNIQUE: Transaxial CT imaging of the brain was performed without administration of intravenous contrast material. Individualized dose optimization techniques were used for this CT. COMPARISON: No relevant priors. FINDINGS: Normal soft tissue structures. Normal calvarium. Normal size ventricles and extra-axial spaces for the patient's age. Normal white matter tracts of the cerebral hemispheres. There are small punctate calcifications of the basal ganglia which are seen in the aging brain as a normal variant. Normal brainstem. Normal cerebellum. There is no intracranial hemorrhage. There are no findings of an acute ischemic infarction. Normal visualized paranasal sinuses. CT/Brain/Head without Contrast IMPRESSION: No evidence of acute intracranial or calvarial abnormality. Electronically Signed: Ernst Wyatt DO at 19:25 EDT Tel [phone], Service support ,
[2018-12-05] MEDS: Budesonide Respules 0.5 MG/2 ML AMPUL.NEB. INHALATION (19:45)
[2018-12-05 20:05] LABS: Reflex Lactate? Y
[2018-12-05 21:06] LABS: Lactic Acid 0.8 mmol/L (0.4-2.0)
[2018-12-05] MEDS: buPROPion (SR) 150 MG Tablet.SA PO (21:59)
[2018-12-05] MEDS: Sucralfate 1 GM Tablet PO (21:59)
[2018-12-05] MEDS: Heparin Injection (Vial) 5,000 UNIT/ML VIAL 5000 UNIT SC (21:59)
[2018-12-05] MEDS: traZODone 50 MG Tablet PO (21:59)
[2018-12-05] MEDS: Mirtazapine 15 MG Tablet PO (21:59)
[2018-12-05] MEDS: Acetaminophen 325 MG Tablet 650 MG PO (22:00)
[2018-12-05] MEDS: Insulin Lispro 100 UNIT/ML INSULN.PEN SQ (22:01)
[2018-12-05 22:30] LABS: Bedside Glucose 173 mg/dL (70-110)
[2018-12-06] VITALS (14 sets, daily range): BP systolic 138–158; BP diastolic 85–98; PULSE 77–93; RESP 14–18; TEMP 36.4–37.2; O2SAT 85–99
[2018-12-06] MEDS: LORazepam 1 MG Tablet PO ×5 (00:26→18:34)
[2018-12-06] MEDS: Heparin Injection (Vial) 5,000 UNIT/ML VIAL 5000 UNIT SC ×3 (05:53→21:45)
[2018-12-06] MEDS: 0.9% Normal Saline 1,000 ML 150 ML IV (05:53)
[2018-12-06] MEDS: 0.9% NaCl Peripheral Flush Adult/Peds IV ×2 (05:53→21:49)
[2018-12-06 06:25] LABS: Absolute Lymphocyte Count 2.66 X10^3/ul (0.83-4.51); Absolute Neutrophil Count 3.7 X10^3/uL (2.0-7.7); Basophil# 0.02 X10^3/uL; Basophil% 0.3 % (0-1); Eosinophil# 0.11 X10^3/uL; Eosinophils% 1.6 % (0-5); Hematocrit 28.1 % (37-47); Hemoglobin 9.3 g/dl (12.0-15.0); Lymphocyte # 2.66 X10^3/ul (4.0); Lymphocyte % 38.7 % (19-41); Mean Corp Hgb Conc 33.1 g/gl (32-36); Mean Corpuscular Hgb 28.9 pg (27.0-32.0); Mean Corpuscular Volume 87.3 fL (81-99); Mean Platelet Vol. 8.5 fl (6.2-12.0); Monocyte# 0.38 X10^3/uL; Monocyte% 5.5 % (0-10); Neutrophil % 53.8 % (47-70); Platelet Count 188 K/mm3 (150-450); RBC Distribution Width CV 13.9 % (11.6-14.6); RBC Distribution Width SD 44.7 fl (35.1-43.9); Red Blood Count 3.22 M/mm3 (4.2-5.4); White Blood Count 6.9 K/mm3 (4.4-11.0)
[2018-12-06 06:31] LABS: POSITIVE COUNT NO; POSITIVE DIFFERENTIAL NO; POSITIVE MORPHOLOGY NO
[2018-12-06 06:42] LABS: ALB/GLOB Ratio 0.8 RATIO (0.9-2.4); AST(SGOT) 55 U/L (15-37); Alanine Aminotransfer ALT/SGPT 38 U/L (13-56); Albumin, Serum 2.7 g/dL (3.2-5.0); Alkaline Phosphatase 73 U/L (45-117); Anion Gap 10 (5-15); BUN 26 mg/dL (7-18); BUN/Creat Ratio 12.8 RATIO (10-20); Calcium,Total 7.8 mg/dL (8.5-10.1); Chloride 104 mmol/L (98-107); Creatinine, Serum 2.03 mg/dL (0.55-1.02); EST Glomerular Filtration Rate 27 mL/min (>60); Est Glom Filt Rate - Afr Amer 32 mL/min (>60); Globulin 3.4 g/dL (2.2-4.2); Glucose 89 mg/dL (74-106); Phosphorus 1.7 mg/dL (2.5-4.9); Potassium 3.9 mmol/L (3.5-5.1); Protein, Total 6.1 g/dL (6.4-8.2); Sodium Level 135 mmol/L (136-145)
[2018-12-06] MEDS: Sucralfate 1 GM Tablet PO ×4 (06:58→21:45)
[2018-12-06 07:06] LABS: Bedside Glucose 90 mg/dL (70-110)
[2018-12-06] MEDS: Budesonide Respules 0.5 MG/2 ML AMPUL.NEB. INHALATION ×2 (07:06→20:38)
[2018-12-06] MEDS: 0.45% Normal Saline 1,000 ML 100 ML IV ×2 (07:42→18:27)
[2018-12-06] MEDS: Folic Acid 1 MG Tablet PO (07:44)
[2018-12-06] MEDS: Multivitamins,Therapeutic Tablet 1 TABLET PO (07:44)
[2018-12-06] MEDS: Thiamine Hydrochloride 100 MG Tablet PO (07:44)
[2018-12-06] MEDS: buPROPion (SR) 150 MG Tablet.SA PO ×2 (09:08→21:45)
[2018-12-06 09:48] LABS: Magnesium 1.4 mg/dL (1.6-2.6)
[2018-12-06] MEDS: Na Biphos/Potassium Phosphate PACKET 1 PACKET PO ×3 (11:05→21:45)
[2018-12-06] MEDS: Magnesium Oxide 400 MG Tablet 800 MG PO ×2 (11:06→21:44)
[2018-12-06 11:11] LABS: Bedside Glucose 112 mg/dL (70-110)
--- NOTE | 2018-12-06 12:01 | CASEMGMT ---
Social Work Note: Date and Time of Referral: 12/06/18, 11:15am Referred by: PATRICIO Date and Time of Intervention: 12/06/18, 11:30am Reason for referral: Alcohol abuse Informant: patient Personal Status Living arrangements: pt lives w/friend who is 30 years sober Education/Literacy: can read and write Employment: On a medical leave, works at a market Insurance: [employer] Family relationships/supports: Reports son as support, lost a daughter in September of last year. Pt's mother is still alive and she has a sister, however she states her sister is quite busy and pt does not rely on her much. Pt reports to have many supportive friends. LW/POA: Pt has not completed these documents. SW gave her the blank forms w/the number to the SW dept to call should she want to complete the forms in the future. Pt did not want to complete the forms at this time. Reason for admission and Relevant medical history: Abdominal pain, YADIRA, alcohol abuse ADL's Prior to admission/DME: Pt is normally independent and has no DME. Pt does report has been falling a lot lately Programs/Agencies involved: Pt plans to go back to [facility]. Pt has been involved there in the past but has not gotten back there since her last admission earlier this month. Pt also sees a counselor at [facility] and plans to return there as well. Substance Abuse history/treatment history: Pt uses alcohol and smokes cigarettes, pt denies any other drug use. Pt states she goes out and gets two bottles of vodka when she goes out so does not have to go out every time. Pt states went to [facility] in 2004 and stayed sober until about 2010 or 2011. She started drinking again and states it was not due to any one specific reason. She states has been in AA multiple times, she even used to work at [employer] SW inquired her drinking increased w/her daughter's , she states it's been about the same. Mental Health history: Pt reports history of depression and anxiety, does have a counselor at [facility], plans to follow up. Pt has not been on medication before for depression or anxiety. SW encouraged her to speak w/her PCP about this, she may do so. Pt denies being suicidal at this time. Pt is alert and oriented, able to have appropriate converstation w/SW at this time. Pt seems very self aware of her alcohol dependence. At this time seems focused on quitting drinking and getting back into treatment. Patient's Identified Concerns: Pt identifies her alcohol abuse as a concern and recognizes how it is impacting her health. Intervention/Plan: Pt plans to follow up w/both [facility] at discharge, and may ask PCP about medication for depression and anxiety. At this time SW does not need to make appts for pt as she plans to follow up. No further needs, SW available should any needs arise. DEJAH Soria
[2018-12-06 12:11] LABS: Bacteria 0 SEEN /hpf (None Seen); Mucous, Urine 0 SEEN /hpf (<or=2+); Red Blood Cells-Urine 0 SEEN /hpf (0-5); White Blood Cells 0 SEEN /hpf (0-5)
[2018-12-06 12:15] LABS: Color, Urine Yellow (Yellow); Glucose, Dipstick 100 mg/dl (Normal); Ketone-Dipstick 15 mg/dl (Negative); Leukocyte Esterase-Dipstick Negative /ul (Negative); Nitrite-Dipstick Negative (Negative); Occult Blood-Urine 10 /ul (Negative); Protein-Dipstick 30 mg/dl (Negative); Urine Bilirubin Dipstick Negative (Negative); Urine Clarity Clear (Clear); Urine Urobilinogen Normal (Normal); Urine pH 6.5 (5.0 - 8.0)
[2018-12-06 12:25] LABS: Squamous Epithelial Cells - UA 0-5 SEEN /hpf (5-10)
--- NOTE | 2018-12-06 13:29 | PN_ITS ---
<Latrell Villanueva - Last Filed: 12/06/18 13:22> Subjective: Patient resting comfortably in bed no acute distress. She does have ongoing nausea and vomiting this morning. No diarrhea. No dizziness or lightheadedness. Somewhat tremulous. No shortness of breath or cough. She does complain of ongoing urinary urgency, but when she sits on the toilet she cannot go. Will check urinalysis. No overt dysuria. - Physical Exam General: Alert, Oriented x3, Cooperative HEENT: Atraumatic, PERRLA, EOMI, Normocephalic Neck: Supple, No JVD, Negative Carotid Bruits Lungs: Clear to auscultation, Normal air movement Cardiovascular: Regular rate, No murmurs Abdomen: Bowel Sounds Present, Soft, Non Tender Extremities: No edema, Capillary Refill Less than 3 Seconds Skin: No rashes, No breakdown Musculoskeletal: No Tenderness to Palpation of Joints or Extremities Neurological: Cranial nerves II-XII grossly intact, - - Tremulous upper extremities Psych/Mental Status: Normal Affect, Appropriate, Alert and oriented to time, place, person, mood and affect Vital Signs Temp Pulse Resp BP Pulse Ox 98.2 F 86 18 147/94 H 96 12/06/18 07:40 12/06/18 07:40 12/06/18 07:40 12/06/18 07:40 12/06/18 07:40 Oxygen Flow Rate (L/min) 2 Oxygen Delivery Method Room Air Weight: 125 lb 7.088 oz Body Mass Index (BMI) 21.2 Intake and Output for Last 24 Hours 12/04/18 12/05/18 12/06/18 23:59 23:59 23:59 Intake Total 120 / 120 3361 / 3361 Output Total 300 / 300 1050 / 1050 Balance -180 / -180 2311 / 2311 Laboratory Tests Past 24 Hrs 12/05/18 12/05/18 12/05/18 14:20 14:20 14:20 WBC 9.7 RBC 4.05 L Hgb 11.7 L Hct 34.7 L MCV 85.7 MCH 28.9 MCHC 33.7 RDW 13.8 RDW Differential 43.2 Plt Count 210 MPV 8.7 Immature Gran % (Auto) 0.100 Neut % (Auto) 84.7 H Lymph % (Auto) 8.9 L [place] % (Auto) 6.2 Eos % (Auto) 0.0 Baso % (Auto) 0.1 Absolute Neuts (auto) 8.2 H Absolute Lymphs (auto) 0.86 Total Counted Not Reportable Sodium 126 L Potassium 4.3 Chloride 87 L Carbon Dioxide 18.0 L Anion Gap 21 H BUN 39 H Creatinine 3.32 H Estim Creat Clear Calc 16.11 Est GFR (MDRD) Af Amer 18 L Est GFR (MDRD) Non-Af 15 L BUN/Creatinine Ratio 11.7 Glucose 72 L Lactic Acid Calcium 8.8 Phosphorus Magnesium Total Bilirubin 0.90 Direct Bilirubin 0.43 H AST 90 H ALT 57 H Alkaline Phosphatase 92 Total Protein 8.1 Albumin 3.7 Globulin 4.4 H Albumin/Globulin Ratio Lipase 183 Urine Color Urine Clarity Urine pH Ur Specific [place] Urine Protein Urine Glucose (UA) Urine Ketones Urine Occult Blood Urine Nitrite Urine Bilirubin Urine Urobilinogen Ur Leukocyte Esterase Urine RBC Urine WBC Ur Squamous Epith Cells Urine Bacteria Urine Mucus Ethyl Alcohol 79.0 12/05/18 12/05/18 12/06/18 16:00 20:34 05:54 WBC 6.9 RBC 3.22 L Hgb 9.3 L Hct 28.1 L MCV 87.3 MCH 28.9 MCHC 33.1 RDW 13.9 RDW Differential 44.7 H Plt Count 188 MPV 8.5 Immature Gran % (Auto) 0.100 Neut % (Auto) 53.8 Lymph % (Auto) 38.7 [place] % (Auto) 5.5 Eos % (Auto) 1.6 Baso % (Auto) 0.3 Absolute Neuts (auto) 3.7 Absolute Lymphs (auto) 2.66 Total Counted Not Reportable Sodium Potassium Chloride Carbon Dioxide Anion Gap BUN Creatinine Estim Creat Clear Calc Est GFR (MDRD) Af Amer Est GFR (MDRD) Non-Af BUN/Creatinine Ratio Glucose Lactic Acid 2.2 H 0.8 Calcium Phosphorus Magnesium Total Bilirubin Direct Bilirubin AST ALT Alkaline Phosphatase Total Protein Albumin Globulin Albumin/Globulin Ratio Lipase Urine Color Urine Clarity Urine pH Ur Specific [place] Urine Protein Urine Glucose (UA) Urine Ketones Urine Occult Blood Urine Nitrite Urine Bilirubin Urine Urobilinogen Ur Leukocyte Esterase Urine RBC Urine WBC Ur Squamous Epith Cells Urine Bacteria Urine Mucus Ethyl Alcohol 12/06/18 12/06/18 12/06/18 05:54 05:54 11:35 WBC RBC Hgb Hct MCV MCH MCHC RDW RDW Differential Plt Count MPV Immature Gran % (Auto) Neut % (Auto) Lymph % (Auto) [place] % (Auto) Eos % (Auto) Baso % (Auto) Absolute Neuts (auto) Absolute Lymphs (auto) Total Counted Sodium 135 L Potassium 3.9 Chloride 104 Carbon Dioxide 21.0 Anion Gap 10 BUN 26 H Creatinine 2.03 H Estim Creat Clear Calc 26.40 Est GFR (MDRD) Af Amer 32 L Est GFR (MDRD) Non-Af 27 L BUN/Creatinine Ratio 12.8 Glucose 89 Lactic Acid Calcium 7.8 L Phosphorus 1.7 L Magnesium 1.4 L Total Bilirubin 0.60 Direct Bilirubin AST 55 H ALT 38 Alkaline Phosphatase 73 Total Protein 6.1 L Albumin 2.7 L Globulin 3.4 Albumin/Globulin Ratio 0.8 L Lipase Urine Color Yellow Urine Clarity Clear Urine pH 6.5 Ur Specific [place] 1.010 Urine Protein 30 H Urine Glucose (UA) 100 H Urine Ketones 15 H Urine Occult Blood 10 H Urine Nitrite Negative Urine Bilirubin Negative Urine Urobilinogen Normal Ur Leukocyte Esterase Negative Urine RBC 0 SEEN Urine WBC 0 SEEN Ur Squamous Epith Cells 0-5 SEEN Urine Bacteria 0 SEEN Urine Mucus 0 SEEN Ethyl Alcohol POC Glucose 12/06/18 12/06/18 12/05/18 11:03 06:56 21:44 POC Glucose 112 H 90 173 H 12/05/18 17:19 POC Glucose 79 Medical Necessity - Tobacco Use Smoking Status: Current every day smoker Tobacco Use: Cigarettes Assessment/Plan All Active Problems (Last Updated 11/16/18 @ 17:42 by Gonzales De Leon DO) YADIRA (acute kidney injury) (Acute) Alcohol withdrawal delirium, acute, hyperactive (Acute) Nausea and vomiting (Acute) Hepatotoxicity, secondary to ETOH (Resolved) Elevated ETOH level (Acute) 1. Alcoholism with acute withdrawal-patient has been on a diaz drinking 1-2 fifths of liquor daily. She has been maintained on an Ativan taper, with [place] protocol, thiamine folic acid, and multivitamin supplementation. 2. Acute kidney injury secondary to dehydration from alcohol binge, and nausea and vomiting-continue IV fluids. Creatinine is improving. JAVIER inhibitor held. 3. Urinary urgency-urinalysis negative for UTI. Will check postvoid 4.COPD - stable. PRN aerosols. 5. Depression - home meds 6. HTN - trend. mildly elevated. 7. Nicotine abuse - continue patch, gum 8. Hypomag/phos/natremia - replete, recheck in AM. 9. Gastritis- PPI + Carafate, abdominal pain improving. Needs outpatient EGD. DVT ppx: heparin DC planning: withdrawal protocol in place. This patient was seen by Latrell Villanueva PA-C under the supervision of Dr. Lawson. <Wendie Lawson - Last Filed: 12/06/18 16:11> - Physical Exam Vital Signs Temp Pulse Resp BP Pulse Ox 98.7 F 93 18 153/98 H 97 12/06/18 14:30 12/06/18 14:30 12/06/18 14:30 12/06/18 14:30 12/06/18 14:30 Oxygen Flow Rate (L/min) 2 Oxygen Delivery Method Room Air Weight: 125 lb 7.088 oz Body Mass Index (BMI) 21.2 Intake and Output for Last 24 Hours 12/04/18 12/05/18 12/06/18 23:59 23:59 23:59 Intake Total 120 / 120 3361 / 3361 Output Total 300 / 300 1050 / 1050 Balance -180 / -180 2311 / 2311 Laboratory Tests Past 24 Hrs 12/05/18 12/05/18 12/06/18 16:00 20:34 05:54 WBC 6.9 RBC 3.22 L Hgb 9.3 L Hct 28.1 L MCV 87.3 MCH 28.9 MCHC 33.1 RDW 13.9 RDW Differential 44.7 H Plt Count 188 MPV 8.5 Immature Gran % (Auto) 0.100 Neut % (Auto) 53.8 Lymph % (Auto) 38.7 [place] % (Auto) 5.5 Eos % (Auto) 1.6 Baso % (Auto) 0.3 Absolute Neuts (auto) 3.7 Absolute Lymphs (auto) 2.66 Total Counted Not Reportable Sodium Potassium Chloride Carbon Dioxide Anion Gap BUN Creatinine Estim Creat Clear Calc Est GFR (MDRD) Af Amer Est GFR (MDRD) Non-Af BUN/Creatinine Ratio Glucose Lactic Acid 2.2 H 0.8 Calcium Phosphorus Magnesium Total Bilirubin AST ALT Alkaline Phosphatase Total Protein Albumin Globulin Albumin/Globulin Ratio Urine Color Urine Clarity Urine pH Ur Specific [place] Urine Protein Urine Glucose (UA) Urine Ketones Urine Occult Blood Urine Nitrite Urine Bilirubin Urine Urobilinogen Ur Leukocyte Esterase Urine RBC Urine WBC Ur Squamous Epith Cells Urine Bacteria Urine Mucus 12/06/18 12/06/18 12/06/18 05:54 05:54 11:35 WBC RBC Hgb Hct MCV MCH MCHC RDW RDW Differential Plt Count MPV Immature Gran % (Auto) Neut % (Auto) Lymph % (Auto) [place] % (Auto) Eos % (Auto) Baso % (Auto) Absolute Neuts (auto) Absolute Lymphs (auto) Total Counted Sodium 135 L Potassium 3.9 Chloride 104 Carbon Dioxide 21.0 Anion Gap 10 BUN 26 H Creatinine 2.03 H Estim Creat Clear Calc 26.40 Est GFR (MDRD) Af Amer 32 L Est GFR (MDRD) Non-Af 27 L BUN/Creatinine Ratio 12.8 Glucose 89 Lactic Acid Calcium 7.8 L Phosphorus 1.7 L Magnesium 1.4 L Total Bilirubin 0.60 AST 55 H ALT 38 Alkaline Phosphatase 73 Total Protein 6.1 L Albumin 2.7 L Globulin 3.4 Albumin/Globulin Ratio 0.8 L Urine Color Yellow Urine Clarity Clear Urine pH 6.5 Ur Specific [place] 1.010 Urine Protein 30 H Urine Glucose (UA) 100 H Urine Ketones 15 H Urine Occult Blood 10 H Urine Nitrite Negative Urine Bilirubin Negative Urine Urobilinogen Normal Ur Leukocyte Esterase Negative Urine RBC 0 SEEN Urine WBC 0 SEEN Ur Squamous Epith Cells 0-5 SEEN Urine Bacteria 0 SEEN Urine Mucus 0 SEEN POC Glucose 12/06/18 12/06/18 12/05/18 11:03 06:56 21:44 POC Glucose 112 H 90 173 H 12/05/18 17:19 POC Glucose 79 Assessment/Plan Patient seen by Latrell Villanueva PA-C under my supervision Patient was admitted with a complaint of severe nausea and vomiting and abdominal pain. She had been drinking heavily for about 4 days prior to adm ission. She had also had mechanical falls on account of loss of balance from drinking. She was found to have YADIRA on admission and abdominal pain was thought to be due to gastritis. She is on IV fluids and PPI and sucralfate. Lactic acid was also elevated. There is no evidence of sepsis. Patient seen and examined. Abdominal pain has improved significantly. She denies any fever chills, lightheadedness or dizziness, chest pain, palpitations, diarrhea vomiting. Review of systems otherwise negative. Labs and vitals reviewed. o/e: Vital Signs Height 5 ft 4 in Weight: 125 lb 7.088 oz Weight in Pounds 125.4 lbs Pulse Ox 97 Temperature 98.7 F Pulse Rate 93 Respiratory Rate 18 Blood Pressure 153/98 Blood Pressure Position Semi-Fowlers General: Alert, Oriented x3, Cooperative HEENT: Atraumatic, PERRLA, EOMI, Normocephalic Neck: Supple, No JVD, Negative Carotid Bruits Lungs: Clear to auscultation, Normal air movement Cardiovascular: Regular rate, No murmurs Abdomen: Bowel Sounds Present, Soft, Non Tender Extremities: No edema, Capillary Refill Less than 3 Seconds Skin: No rashes, No breakdown Musculoskeletal: No Tenderness to Palpation of Joints or Extremities Neurological: Cranial nerves II-XII grossly intact, mild tremors of UEs Psych/Mental Status: Normal Affect, Appropriate, Alert and oriented to time, place, person, mood and affect Plan is to continue hydration with IVF. Currently on alcohol withdrawal protocol with ativan. Cotninue PPI and carafate. Will benefit from outpatient EGD. Patient also has hypophosphatemia and hypomagnesemia with phosphorus of 1.7 and magnesium of 1.4. This will be replaced and monitored. REst of management as per Latrell Villanueva PA-C's note, which I have reviewed and endorse Code Visit Inpatient E&M: 30612 Subs Hosp L3
--- NOTE | 2018-12-06 13:42 | NEWVISION ---
Naveed Cabrera met with patient to discuss her intentions for rehabilitation post discharge regarding alcohol abuse. Patient states that she plans to return to [facility] to see her current counselors.
[2018-12-06] MEDS: Ensure Clear 120 ML Liquid PO ×2 (14:49→18:27)
[2018-12-06 17:05] LABS: Bedside Glucose 110 mg/dL (70-110)
[2018-12-06] MEDS: Mirtazapine 15 MG Tablet PO (21:45)
[2018-12-06] MEDS: traZODone 50 MG Tablet PO (21:45)
[2018-12-06] MEDS: Methocarbamol 750 MG Tablet PO (21:49)
[2018-12-06] MEDS: Famotidine 20mg IV Push Syringe Q12 300 MG IV (21:49)
[2018-12-06] MEDS: Dicyclomine 10 MG Capsule 20 MG PO (21:49)
[2018-12-06 22:00] LABS: Bedside Glucose 110 mg/dL (70-110)
[2018-12-06] MEDS: hydrOXYzine PAM 25 MG Capsule 50 MG PO (22:55)
--- NOTE | 2018-12-06 22:58 | NURSING ---
setting off bed exit x2 pt states her children are in the cupboards, attempted to reorient pt, opened cupboards and showed pt. toileted.pt medicated for anxiety. pt states that she knows this is from alcohol she has been through this before but she was convinced they were in the cupboards. bed exit on.
[2018-12-07] VITALS (18 sets, daily range): BP systolic 105–154; BP diastolic 83–103; PULSE 83–129; RESP 16–22; TEMP 36.6–37.1; O2SAT 96–100
[2018-12-07] MEDS: LORazepam 1 MG Tablet PO ×3 (00:17→12:34)
--- NOTE | 2018-12-07 01:15 | NURSING ---
PT SETTING OFF BEDEXIT STAFF IN TO ASSIST, PT INSISTING KIDS ARE IN THE CLOSET. PT DENIES NEED FOR VOID, SNACK. PT ETOH WITHDRAWAL. RETURNED TO BED. LIGHTS ON, TURNED ON TV FOR DIVERSION AND LEFT CLOSET OPEN SO PT CAN SEE NO CHILDREN ARE IN THE CLOSET. WILL NOTIFY
--- NOTE | 2018-12-07 01:45 | NURSING ---
nursing linen supervisor aware that office automation technician sitting with pt for safety
--- NOTE | 2018-12-07 02:44 | NURSING ---
rn sitting with pt for safety. continues to hallucinate at times states people are in her closet, trying to get up without assist intermittently. reassurance given. bedexit on
[2018-12-07] MEDS: LORazepam 1 MG Tablet 2 MG PO ×7 (03:47→21:53)
--- NOTE | 2018-12-07 04:41 | NURSING ---
PT TALKING TO UNSEEN PERSONS, GRASPING AT UNSEEN ITEMS IN THE AIR. SITTER REMAINS WITH PT FOR SAFETY
[2018-12-07] MEDS: Heparin Injection (Vial) 5,000 UNIT/ML VIAL 5000 UNIT SC ×3 (06:21→21:26)
[2018-12-07] MEDS: Sucralfate 1 GM Tablet PO ×4 (06:22→21:16)
[2018-12-07] MEDS: 0.9% NaCl Peripheral Flush Adult/Peds IV ×3 (06:24→14:05)
[2018-12-07 06:54] LABS: Absolute Lymphocyte Count 2.76 X10^3/ul (0.83-4.51); Absolute Neutrophil Count 5.3 X10^3/uL (2.0-7.7); Basophil# 0.02 X10^3/uL; Basophil% 0.2 % (0-1); Eosinophil# 0.18 X10^3/uL; Eosinophils% 2.1 % (0-5); Hematocrit 28.7 % (37-47); Hemoglobin 9.4 g/dl (12.0-15.0); Lymphocyte # 2.76 X10^3/ul (4.0); Lymphocyte % 31.6 % (19-41); Mean Corp Hgb Conc 32.8 g/gl (32-36); Mean Corpuscular Hgb 28.5 pg (27.0-32.0); Mean Platelet Vol. 9.3 fl (6.2-12.0); Monocyte# 0.49 X10^3/uL; Monocyte% 5.6 % (0-10); Neutrophil # 5.26 X10^3/uL (2.7-7.7); Neutrophil % 60.3 % (47-70); Platelet Count 196 K/mm3 (150-450); RBC Distribution Width CV 13.7 % (11.6-14.6); RBC Distribution Width SD 43.8 fl (35.1-43.9); White Blood Count 8.7 K/mm3 (4.4-11.0)
[2018-12-07 06:56] LABS: POSITIVE COUNT NO; POSITIVE DIFFERENTIAL NO; POSITIVE MORPHOLOGY NO
[2018-12-07 07:00] LABS: Bedside Glucose 91 mg/dL (70-110)
[2018-12-07 07:06] LABS: Anion Gap 10 (5-15); BUN 10 mg/dL (7-18); Calcium,Total 8.1 mg/dL (8.5-10.1); Chloride 99 mmol/L (98-107); Creatinine, Serum 1.11 mg/dL (0.55-1.02); EST Glomerular Filtration Rate 54 mL/min (>60); Est Glom Filt Rate - Afr Amer 65 mL/min (>60); Estimated Creatinine Clearance 48.29 ml/min; Glucose 94 mg/dL (74-106); Magnesium 1.1 mg/dL (1.6-2.6); Phosphorus 1.2 mg/dL (2.5-4.9); Potassium 3.3 mmol/L (3.5-5.1); Sodium Level 137 mmol/L (136-145)
[2018-12-07] MEDS: Budesonide Respules 0.5 MG/2 ML AMPUL.NEB. INHALATION ×2 (07:22→19:33)
--- NOTE | 2018-12-07 08:55 | NURSING ---
[employer] Brittany- notified this RN that pill was found in patient's linens this morning. This RN searched numbers/ letters on small circular white pill- found to be 1mg Ativan. Sarthak, charge entry specialist notified and witness waste of pill in med disposal container.
[2018-12-07] MEDS: Thiamine Hydrochloride 100 MG Tablet PO (10:31)
[2018-12-07] MEDS: Multivitamins,Therapeutic Tablet 1 TABLET PO (10:31)
[2018-12-07] MEDS: Folic Acid 1 MG Tablet PO (10:31)
[2018-12-07] MEDS: Na Biphos/Potassium Phosphate PACKET 1 PACKET PO ×3 (10:32→16:59)
[2018-12-07] MEDS: buPROPion (SR) 150 MG Tablet.SA PO ×2 (10:33→21:18)
[2018-12-07] MEDS: Ensure Clear 120 ML Liquid PO ×4 (10:40→21:19)
--- NOTE | 2018-12-07 11:57 | NURSING ---
Respiratory called and notified of x1 duoneb.
--- NOTE | 2018-12-07 12:33 | PN_ITS ---
<Latrell Villanueva - Last Filed: 12/07/18 12:29> Subjective: Pt experiencing visual hallucinations. At first she was reluctant to discuss this stating that we would think she was out of her mind, however she later admitted that she thinks there are mice hiding under her bed with large eyes and pink hair. She is anxious. She has a slight upper extremity tremor. She continues to have nausea and vomiting today. - Physical Exam General: Alert, Oriented x3, Cooperative HEENT: Atraumatic, PERRLA, EOMI, Normocephalic Neck: Supple, No JVD, Negative Carotid Bruits Lungs: Clear to auscultation, Diminished Cardiovascular: Regular rate, No murmurs Abdomen: Bowel Sounds Present, Soft, Non Tender Extremities: No edema, Capillary Refill Less than 3 Seconds Skin: No rashes, No breakdown Musculoskeletal: No Tenderness to Palpation of Joints or Extremities Neurological: Cranial nerves II-XII grossly intact, - - faint upper extremity tremor Psych/Mental Status: Normal Affect, Appropriate Vital Signs Temp Pulse Resp BP Pulse Ox 98.2 F 100 18 154/100 H 100 12/07/18 10:00 12/07/18 10:00 12/07/18 10:00 12/07/18 10:00 12/07/18 07:04 Oxygen Flow Rate (L/min) 2 Oxygen Delivery Method Room Air Weight: 125 lb 3.561 oz Body Mass Index (BMI) 21.2 Intake and Output for Last 24 Hours 12/05/18 12/06/18 12/07/18 23:59 23:59 23:59 Intake Total 120 / 120 5250 / 5250 200 / 200 Output Total 300 / 300 2550 / 2550 800 / 800 Balance -180 / -180 2700 / 2700 -600 / -600 Laboratory Tests Past 24 Hrs 12/07/18 12/07/18 06:10 06:10 WBC 8.7 RBC 3.30 L Hgb 9.4 L Hct 28.7 L MCV 87.0 MCH 28.5 MCHC 32.8 RDW 13.7 RDW Differential 43.8 Plt Count 196 MPV 9.3 Immature Gran % (Auto) 0.200 Neut % (Auto) 60.3 Lymph % (Auto) 31.6 [place] % (Auto) 5.6 Eos % (Auto) 2.1 Baso % (Auto) 0.2 Absolute Neuts (auto) 5.3 Absolute Lymphs (auto) 2.76 Total Counted Not Reportable Sodium 137 Potassium 3.3 L Chloride 99 Carbon Dioxide 28.0 Anion Gap 10 BUN 10 Creatinine 1.11 H Estim Creat Clear Calc 48.29 Est GFR (MDRD) Af Amer 65 Est GFR (MDRD) Non-Af 54 L BUN/Creatinine Ratio 9.0 L Glucose 94 Calcium 8.1 L Phosphorus 1.2 L Magnesium 1.1 L POC Glucose 12/07/18 12/06/18 12/06/18 06:56 21:57 16:53 POC Glucose 91 110 110 Medical Necessity - Tobacco Use Smoking Status: Current every day smoker Tobacco Use: Cigarettes Assessment/Plan All Active Problems (Last Updated 11/16/18 @ 17:42 by Gonzales De Leon DO) YADIRA (acute kidney injury) (Acute) Alcohol withdrawal delirium, acute, hyperactive (Acute) Nausea and vomiting (Acute) Hepatotoxicity, secondary to ETOH (Resolved) Elevated ETOH level (Acute) 1. Alcoholism with acute withdrawal-patient has been on a diaz drinking 1-2 fifths of liquor daily. She has been maintained on an Ativan taper, with CIWA protocol, thiamine folic acid, and multivitamin supplementation. Pt now with visual hallucinations. 2. Acute kidney injury secondary to dehydration from alcohol binge, and nausea and vomiting-continue IV fluids. Creatinine is improving. JAVIER inhibitor held. 3.COPD - stable. PRN aerosols. add duonebs sceheduled q6 as we do not have all of her inhalers and excessive albuterol may worsen her tremor and agitations 4. Depression - home meds 5. HTN - trend. mildly elevated. will resume javier at dc. 6. Nicotine abuse - continue patch, gum 7. Hypomag/phos/natremia - Na normal now. Mag/phos still low. Will give IV mag since still vomiting. recheck in am. PO K and phos given. 8. Gastritis- PPI + Carafate, abdominal pain improving. Needs outpatient EGD. DVT ppx: heparin DC planning: withdrawal protocol in place. This patient was seen by Latrell Villanueva PA-C under the supervision of Dr. Rothman. <Porfirio Rothman - Last Filed: 12/07/18 15:29> Subjective: Patient seen and examined. Patient is having hallucination, visual hallucination as mentioned above. Patient has fine tremor. Chronic alcohol use and patient is not withdrawal. - Physical Exam General: Alert, Oriented x3, Cooperative HEENT: Atraumatic, PERRLA, EOMI, Normocephalic Neck: Supple, No JVD, Negative Carotid Bruits Lungs: Clear to auscultation, No rhonchi, No wheeze, No rales, Diminished Cardiovascular: Regular rate, Regular Rhythm, Normal S1, Normal S2, No murmurs Abdomen: Bowel Sounds Present, Soft, Non Tender Extremities: No edema, Capillary Refill Less than 3 Seconds Skin: No rashes, No breakdown Musculoskeletal: No Tenderness to Palpation of Joints or Extremities, Arthritic Changes Neurological: Cranial nerves II-XII grossly intact, Deep Tendon Reflexes 2+/4 and Symmetrical, Neuro grossly intact Psych/Mental Status: Normal Affect, Appropriate Vital Signs Temp Pulse Resp BP Pulse Ox 98.5 F 100 18 134/85 H 97 12/07/18 13:20 12/07/18 13:20 12/07/18 14:00 12/07/18 13:20 12/07/18 13:20 Oxygen Flow Rate (L/min) 2 Oxygen Delivery Method Room Air Weight: 125 lb 3.561 oz Body Mass Index (BMI) 21.2 Intake and Output for Last 24 Hours 12/05/18 12/06/18 12/07/18 23:59 23:59 23:59 Intake Total 120 / 120 5250 / 5250 600 / 600 Output Total 300 / 300 2550 / 2550 800 / 800 Balance -180 / -180 2700 / 2700 -200 / -200 Laboratory Tests Past 24 Hrs 12/07/18 12/07/18 06:10 06:10 WBC 8.7 RBC 3.30 L Hgb 9.4 L Hct 28.7 L MCV 87.0 MCH 28.5 MCHC 32.8 RDW 13.7 RDW Differential 43.8 Plt Count 196 MPV 9.3 Immature Gran % (Auto) 0.200 Neut % (Auto) 60.3 Lymph % (Auto) 31.6 [place] % (Auto) 5.6 Eos % (Auto) 2.1 Baso % (Auto) 0.2 Absolute Neuts (auto) 5.3 Absolute Lymphs (auto) 2.76 Total Counted Not Reportable Sodium 137 Potassium 3.3 L Chloride 99 Carbon Dioxide 28.0 Anion Gap 10 BUN 10 Creatinine 1.11 H Estim Creat Clear Calc 48.29 Est GFR (MDRD) Af Amer 65 Est GFR (MDRD) Non-Af 54 L BUN/Creatinine Ratio 9.0 L Glucose 94 Calcium 8.1 L Phosphorus 1.2 L Magnesium 1.1 L POC Glucose 12/07/18 12/07/18 12/06/18 12:32 06:56 21:57 POC Glucose 124 H 91 110 12/06/18 16:53 POC Glucose 110 Assessment/Plan This patient was seen in conjunction with Latrell RAHMAN. I have independently interviewed and examined the patient and reviewed pertinent history, examination findings, laboratory and plan of management. I have reviewed the note and agree with the documented findings with the few additional points. In brief, patient is admitted for acute alcohol withdrawal syndrome. Patient has chronic alcohol abuse and dependence and drinks 1-2/5 of vodka daily. On CIWA monitor. Patient was on Ativan protocol. Acute kidney injury is getting better. As the patient is getting hallucinations we will start on the Librium 25 mg 3 times daily protocol and Ativan as needed. I have discussed my assessment with Latrell RAHMAN and orders have been reviewed. Code Visit Inpatient E&M: 35892 Subs Hosp L3
[2018-12-07 12:41] LABS: Bedside Glucose 124 mg/dL (70-110)
[2018-12-07] MEDS: Ipratropium/Albuterol Sulfate 3 ML AMPUL.NEB INHALATION ×2 (13:12→19:33)
[2018-12-07] MEDS: chlordiazePOXIDE 25 MG Capsule PO ×2 (15:50→21:17)
[2018-12-07 16:01] LABS: Bedside Glucose 99 mg/dL (70-110)
--- NOTE | 2018-12-07 16:01 | NURSING ---
At 1600 pt packed belongings and despite gourmet coffee attendant sitter- came out to nurses' station and stated that she was leaving. This rN reminded pt that she was to stay another couple of days for the alcohol withdrawal to be completed. Pt states that the doctor told her she could go home tomorrow and that today will work just as well. This RN notified pt that the doctor ordered a new medication that will help with anxiety and that this RN will make her a milkshake, emotional support provided and patient agreed to return to room. Pt given librium per new order and milkshake. Pt resting in bed at this time with sitter at bedside.
[2018-12-07] MEDS: Methocarbamol 750 MG Tablet PO (20:30)
[2018-12-07] MEDS: Acetaminophen 325 MG Tablet 650 MG PO (20:31)
[2018-12-07] MEDS: traZODone 50 MG Tablet PO (21:16)
[2018-12-07] MEDS: Pantoprazole Sodium 40 MG Tablet PO (21:16)
[2018-12-07] MEDS: Mirtazapine 15 MG Tablet PO (21:18)
[2018-12-07] MEDS: Insulin Lispro 100 UNIT/ML INSULN.PEN SQ (21:26)
[2018-12-07 21:46] LABS: Bedside Glucose 158 mg/dL (70-110)
[2018-12-07] MEDS: Nicotine Polacrilex 2 MG GUM PO (21:54)
[2018-12-08] VITALS (14 sets, daily range): BP systolic 113–140; BP diastolic 69–91; PULSE 92–112; RESP 14–18; TEMP 36.4–37.1; O2SAT 96–98
[2018-12-08] MEDS: Nicotine Polacrilex 2 MG GUM PO ×2 (06:21→10:49)
[2018-12-08] MEDS: Sucralfate 1 GM Tablet PO ×4 (06:21→20:55)
[2018-12-08] MEDS: chlordiazePOXIDE 25 MG Capsule PO ×4 (06:21→20:54)
[2018-12-08] MEDS: Heparin Injection (Vial) 5,000 UNIT/ML VIAL 5000 UNIT SC ×3 (06:21→20:54)
[2018-12-08] MEDS: Methocarbamol 750 MG Tablet PO ×2 (06:26→16:51)
[2018-12-08] MEDS: hydrOXYzine PAM 25 MG Capsule 50 MG PO (06:26)
[2018-12-08 06:45] LABS: Bedside Glucose 98 mg/dL (70-110)
[2018-12-08] MEDS: Ipratropium/Albuterol Sulfate 3 ML AMPUL.NEB INHALATION ×3 (06:47→19:45)
[2018-12-08] MEDS: Budesonide Respules 0.5 MG/2 ML AMPUL.NEB. INHALATION (06:47)
[2018-12-08] MEDS: Acetaminophen 325 MG Tablet 650 MG PO ×2 (08:10→16:51)
[2018-12-08] MEDS: Dicyclomine 10 MG Capsule 20 MG PO ×2 (08:11→16:51)
[2018-12-08] MEDS: Multivitamins,Therapeutic Tablet 1 TABLET PO (08:13)
[2018-12-08] MEDS: Thiamine Hydrochloride 100 MG Tablet PO (08:13)
[2018-12-08] MEDS: buPROPion (SR) 150 MG Tablet.SA PO ×2 (08:13→20:55)
[2018-12-08] MEDS: Pantoprazole Sodium 40 MG Tablet PO ×2 (08:14→20:55)
[2018-12-08] MEDS: LORazepam 1 MG Tablet 2 MG PO ×6 (08:23→22:09)
[2018-12-08] MEDS: Ondansetron 4 MG/2 ML Vial IV (08:23)
[2018-12-08] MEDS: 0.9% NaCl Peripheral Flush Adult/Peds IV (08:23)
[2018-12-08 08:29] LABS: Anion Gap 10 (5-15); BUN 7 mg/dL (7-18); BUN/Creat Ratio 7.8 RATIO (10-20); Calcium,Total 8.1 mg/dL (8.5-10.1); Chloride 95 mmol/L (98-107); EST Glomerular Filtration Rate 69 mL/min (>60); Est Glom Filt Rate - Afr Amer 83 mL/min (>60); Estimated Creatinine Clearance 59.55 ml/min; Glucose 89 mg/dL (74-106); Magnesium 1.3 mg/dL (1.6-2.6); Phosphorus 2.5 mg/dL (2.5-4.9); Potassium 3.8 mmol/L (3.5-5.1); Sodium Level 133 mmol/L (136-145)
--- NOTE | 2018-12-08 08:34 | RAD_ITS ---
STUDY: X-RAY CHEST REASON FOR EXAM: Female, 58 years old. Cough. TECHNIQUE: PA and lateral views of the chest. COMPARISON: 26 August 2016 FINDINGS: . A previous exam there is continued basilar chronic interstitial markings with left costophrenic angle blunting consistent with small layering effusion. There is no demonstrated pleural abnormality. Normal size heart. Normal mediastinum and liam. Normal visualized pulmonary arteries. There is atherosclerotic calcification of the aortic arch with tortuosity. Normal visualized thoracic spine. Normal visualized ribs, clavicles, and shoulders. There is no demonstrated abnormality of the visualized soft tissue structures of the upper abdomen. RAD/Chest PA and Lateral IMPRESSION: Similar basilar chronic interstitial markings with new left likely small effusion. Electronically Signed: Saroj Mcintyre DO at 10:19 EDT , Service support ,
[2018-12-08] MEDS: Ensure Clear 120 ML Liquid PO ×4 (10:49→20:55)
[2018-12-08] MEDS: Senna/Docusate Sodium 1 Tablet PO ×2 (10:56→20:55)
[2018-12-08 11:40] LABS: Bedside Glucose 107 mg/dL (70-110)
--- NOTE | 2018-12-08 13:13 | PCM.PROGNOTE ---
<Latrell Villanueva - Last Filed: 12/08/18 13:13> Subjective: Pt now with sitter. Very anxious. Upper extremities tremulous. Unsteady on her feet requiring assistance to the bathroom. Visual hallucinations continue. She thought a person in all black with a radio was trying to take her away and force medications on her. Mild SOB. No wheezing. Lungs clear. She ate a small amount this AM without vomiting. - Physical Exam General: Alert, Oriented x3, Cooperative, Confused, - - frail HEENT: Atraumatic, PERRLA, EOMI, Normocephalic Neck: Supple, No JVD, Negative Carotid Bruits Lungs: Clear to auscultation, Diminished Cardiovascular: Regular rate, No murmurs Abdomen: Bowel Sounds Present, Soft, Non Tender Extremities: No edema, Capillary Refill Less than 3 Seconds Skin: No rashes, No breakdown Musculoskeletal: No Tenderness to Palpation of Joints or Extremities Neurological: Cranial nerves II-XII grossly intact Psych/Mental Status: Appropriate, Anxious, Hallucinations, Alert and oriented to time, place, person, mood and affect Vital Signs Temp Pulse Resp BP Pulse Ox 97.8 F 108 H 18 123/83 H 98 12/08/18 10:44 12/08/18 10:44 12/08/18 10:44 12/08/18 10:44 12/08/18 10:39 Oxygen Flow Rate (L/min) 2 Oxygen Delivery Method Room Air Weight: 123 lb 14.397 oz Body Mass Index (BMI) 21.2 Intake and Output for Last 24 Hours 12/06/18 12/07/18 12/08/18 23:59 23:59 23:59 Intake Total 5250 / 5250 1200 / 1200 300 / 300 Output Total 2550 / 2550 800 / 800 Balance 2700 / 2700 400 / 400 300 / 300 Microbiology Past 72 Hours 12/06/18 11:35 Urine Culture - Final Urine, Clean Catch Culture exhibits no growth. Laboratory Tests Past 24 Hrs 12/08/18 06:58 Sodium 133 L Potassium 3.8 Chloride 95 L Carbon Dioxide 28.0 Anion Gap 10 BUN 7 Creatinine 0.90 Estim Creat Clear Calc 59.55 Est GFR (MDRD) Af Amer 83 Est GFR (MDRD) Non-Af 69 BUN/Creatinine Ratio 7.8 L Glucose 89 Calcium 8.1 L Phosphorus 2.5 Magnesium 1.3 L POC Glucose 12/08/18 12/08/18 12/07/18 11:06 06:31 21:23 POC Glucose 107 98 158 H 12/07/18 15:54 POC Glucose 99 Medical Necessity - Tobacco Use Smoking Status: Current every day smoker Tobacco Use: Cigarettes Assessment/Plan All Active Problems (Last Updated 11/16/18 @ 17:42 by Gonzales De Leon DO) YADIRA (acute kidney injury) (Acute) Alcohol withdrawal delirium, acute, hyperactive (Acute) Nausea and vomiting (Acute) Hepatotoxicity, secondary to ETOH (Resolved) Elevated ETOH level (Acute) 1. Alcoholism with acute withdrawal-patient has been on a diaz drinking 1-2 fifths of liquor daily. She has been maintained on an Ativan taper, with CIWA protocol, thiamine folic acid, and multivitamin supplementation. Hallucinations, anxiety, tremor - Librium taper added. Sitter present. -abdominal pain resolved. nausea / vomiting improved. 2. Acute kidney injury secondary to dehydration from alcohol binge, and nausea and vomiting-continue IV fluids. Creatinine is improving. JAVIER inhibitor held. 3.COPD - stable. continue duonebs sceheduled q6 with prn albuterol -CXR with small effusion. Lungs clear. -add IS 4. Depression/anxiety - home meds 5. HTN - trend. mildly elevated. will resume javier at dc. 6. Nicotine abuse - continue patch, gum 7. Hypomag/phos/natremia/kalemia - Phos and K. now normal. Na / Mag still low. Give additional 2 g IV mag. 8. Gastritis- PPI + Carafate, abdominal pain improving. Needs outpatient EGD. DVT ppx: heparin DC planning: withdrawal protocol in place. PTOT. Pt very unsteady on her feet. This patient was seen by Latrell Villanueva PA-C under the supervision of Dr. Rothman. <Porfirio Rothman - Last Filed: 12/08/18 13:59> Subjective: Patient has a sitter near the bedside. Anxious and restless. Patient was disoriented in the morning. Has visual hallucinations. On Librium 25 mg 3 times daily. - Physical Exam General: Confused, Disoriented, Lethargic, - HEENT: Atraumatic, PERRLA, EOMI, Normocephalic Neck: Supple, No JVD, Negative Carotid Bruits Lungs: Clear to auscultation, No rhonchi, No wheeze, No rales, Diminished Cardiovascular: Regular rate, Regular Rhythm, Normal S1, Normal S2, No murmurs Abdomen: Bowel Sounds Present, Soft, Non Tender Extremities: No edema, Capillary Refill Less than 3 Seconds Skin: No rashes, No breakdown Musculoskeletal: No Tenderness to Palpation of Joints or Extremities Neurological: Cranial nerves II-XII grossly intact, Deep Tendon Reflexes 2+/4 and Symmetrical, Neuro grossly intact, Motor Exam 5/5 strength throughout Vital Signs Temp Pulse Resp BP Pulse Ox 97.9 F 100 16 126/81 H 96 12/08/18 13:49 12/08/18 13:49 12/08/18 13:49 12/08/18 13:49 12/08/18 13:49 Oxygen Flow Rate (L/min) 2 Oxygen Delivery Method Room Air Weight: 123 lb 14.397 oz Body Mass Index (BMI) 21.2 Intake and Output for Last 24 Hours 12/06/18 12/07/18 12/08/18 23:59 23:59 23:59 Intake Total 5250 / 5250 1200 / 1200 1100 / 1100 Output Total 2550 / 2550 800 / 800 Balance 2700 / 2700 400 / 400 1100 / 1100 Microbiology Past 72 Hours 12/06/18 11:35 Urine Culture - Final Urine, Clean Catch Culture exhibits no growth. Laboratory Tests Past 24 Hrs 12/08/18 06:58 Sodium 133 L Potassium 3.8 Chloride 95 L Carbon Dioxide 28.0 Anion Gap 10 BUN 7 Creatinine 0.90 Estim Creat Clear Calc 59.55 Est GFR (MDRD) Af Amer 83 Est GFR (MDRD) Non-Af 69 BUN/Creatinine Ratio 7.8 L Glucose 89 Calcium 8.1 L Phosphorus 2.5 Magnesium 1.3 L POC Glucose 12/08/18 12/08/18 12/07/18 11:06 06:31 21:23 POC Glucose 107 98 158 H 12/07/18 15:54 POC Glucose 99 Assessment/Plan This patient was seen in conjunction with Latrell RAHMAN. I have independently interviewed and examined the patient and reviewed pertinent history, examination findings, laboratory and plan of management. I have reviewed the note and agree with the documented findings with the few additional points. In brief, patient is admitted for acute alcohol withdrawal syndrome. Patient has chronic alcohol abuse and dependence and drinks 1-2/5 of vodka daily. On CIWA monitor. Patient still confused, disoriented and restless. Having visual hallucinations. Patient is on Ativan protocol. Acute kidney injury is getting better. Continue Librium 25 mg 3 times daily protocol and Ativan as needed. I have discussed my assessment with Latrell RAHMAN and orders have been reviewed. Code Visit Inpatient E&M: 95513 Subs Hosp L3
[2018-12-08] MEDS: Magnesium Oxide 400 MG Tablet PO (16:45)
[2018-12-08] MEDS: proMETHazine 25 MG Tablet 12.5 MG PO (17:01)
[2018-12-08 18:36] LABS: Bedside Glucose 103 mg/dL (70-110)
[2018-12-08] MEDS: Mirtazapine 15 MG Tablet PO (20:55)
[2018-12-08] MEDS: traZODone 50 MG Tablet PO (20:55)
[2018-12-08 21:15] LABS: Bedside Glucose 115 mg/dL (70-110)
[2018-12-09] VITALS (7 sets, daily range): BP systolic 100–128; BP diastolic 64–85; PULSE 85–103; RESP 16–18; TEMP 36.7–36.9; O2SAT 90–97
[2018-12-09] MEDS: Heparin Injection (Vial) 5,000 UNIT/ML VIAL 5000 UNIT SC (06:37)
[2018-12-09] MEDS: Sucralfate 1 GM Tablet PO ×2 (06:37→12:08)
[2018-12-09] MEDS: chlordiazePOXIDE 25 MG Capsule PO ×2 (06:37→14:35)
[2018-12-09] MEDS: Insulin Lispro 100 UNIT/ML INSULN.PEN SQ (06:40)
[2018-12-09 06:51] LABS: Bedside Glucose 182 mg/dL (70-110)
[2018-12-09] MEDS: Budesonide Respules 0.5 MG/2 ML AMPUL.NEB. INHALATION (06:53)
[2018-12-09] MEDS: Ipratropium/Albuterol Sulfate 3 ML AMPUL.NEB INHALATION ×2 (06:53→13:26)
[2018-12-09 07:50] LABS: Anion Gap 9 (5-15); BUN 8 mg/dL (7-18); BUN/Creat Ratio 8.8 RATIO (10-20); Calcium,Total 8.3 mg/dL (8.5-10.1); Chloride 97 mmol/L (98-107); Creatinine, Serum 0.91 mg/dL (0.55-1.02); EST Glomerular Filtration Rate 68 mL/min (>60); Est Glom Filt Rate - Afr Amer 82 mL/min (>60); Glucose 100 mg/dL (74-106); Magnesium 1.7 mg/dL (1.6-2.6); Phosphorus 2.4 mg/dL (2.5-4.9); Sodium Level 135 mmol/L (136-145)
[2018-12-09] MEDS: Multivitamins,Therapeutic Tablet 1 TABLET PO (08:55)
[2018-12-09] MEDS: Magnesium Oxide 400 MG Tablet PO (08:55)
[2018-12-09] MEDS: Senna/Docusate Sodium 1 Tablet PO (08:55)
[2018-12-09] MEDS: buPROPion (SR) 150 MG Tablet.SA PO (08:55)
[2018-12-09] MEDS: Pantoprazole Sodium 40 MG Tablet PO (08:55)
[2018-12-09] MEDS: Ensure Clear 120 ML Liquid PO (09:03)
[2018-12-09] MEDS: hydrOXYzine PAM 25 MG Capsule 50 MG PO (09:03)
[2018-12-09] MEDS: Acetaminophen 325 MG Tablet 650 MG PO (12:06)
[2018-12-09] MEDS: LORazepam 1 MG Tablet 2 MG PO (12:06)
[2018-12-09] MEDS: Methocarbamol 750 MG Tablet PO (12:07)
[2018-12-09 12:21] LABS: Bedside Glucose 122 mg/dL (70-110)
--- NOTE | 2018-12-09 12:35 | DCINST_ITS ---
- Discharge Diagnoses Current Active Problems: Current Active and Chronic Problems (Last Updated 11/16/18 @ 17:42 by Gonzales De Leon DO) COPD (chronic obstructive pulmonary disease) (Chronic) Depression (Chronic) Hypertension (Chronic) You will use the following diet at home:: Regular Your food should be the consistency of: Regular Discharge Activity: May Not Drive Call your doctor if you observe: Fever of 101 or Higher, Inability to urinate, Inability to have a bowel movement, Shortness of breath, Dizziness, Fainting spells, Swelling in the ankles, Prolonged hiccoughing, Increased palpitations (irregular heartbeat), Calf discomfort, Uncontrolled pain Additional Instructions: Follow-up outpatient alcohol detox/AA program as arranged by [facility] therapeutic case manager. Allergies/Adverse Reactions: Allergies Penicillins Allergy (Verified 12/05/18 13:29) WEAKNESS,VISION ISSUES PT STATES MAKES HER WEAK Medications to take at Discharge albuterol sulfate 2.5 mg/3 mL (0.083 %) solution for nebulization 2.5 mg INHALATION Q4H PRN 04/04/18 loratadine 10 mg tablet 10 mg PO DAILY 04/04/18 Sucralfate [Carafate] 1 gm PO 4X/DAY 06/15/18 Fluticasone/Vilanterol [Breo Ellipta 100-25 Mcg INH] 1 puff INHALATION DAILY 07/16/18 Albuterol Sulfate [Ventolin Hfa] 1 - 2 puff IH Q6H PRN PRN 11/16/18 Mirtazapine 15 mg PO QHS 11/16/18 buPROPion SR [Wellbutrin SR (150mg tablets)] 150 mg PO BID 11/16/18 Pantoprazole Sodium [Protonix] 40 mg PO BID #50 tablet 11/21/18 Lisinopril [Zestril] 20 mg PO DAILY 12/05/18 Hydroxyzine HCl 25 mg PO BID PRN PRN #20 tablet 12/09/18 Multivitamins,Therapeutic [Multivitamin] 1 tablet PO DAILYCM tablet 12/09/18 Nicotine [Nicoderm Cq] 21 mg TRANSDERM. DAILY patch 12/09/18 Senna/Docusate Sodium [Senokot-S] 1 tablet PO BID PRN PRN tablet 12/09/18 The following prescriptions were given: Hydroxyzine HCl 25 mg PO BID PRN PRN #20 tablet PRN Reason: Anxiety Primary Care Physician: Kellie Delarosa DO [Primary Care Provider] - Please follow up with your Primary Care Physician in: in 1 week Test Results: Test results from this visit will be discussed in further detail at your follow- up appointment, if applicable.
--- NOTE | 2018-12-09 12:37 | PCM.DC.SUM ---
Discharge Date and Diagnosis Date of Admission: 12/05/18 Date of Discharge: 12/09/18 - Secondary Discharge Diagnosis Chronic Problems (Last Updated 11/16/18 @ 17:42 by Gonzales De Leon DO) COPD (chronic obstructive pulmonary disease) (Chronic) Depression (Chronic) Hypertension (Chronic) ETOH abuse (Chronic) Hospital Course and Treatment Operations: None Summary of Care Provided: The patient is a 58 year old F admitted for acute alcohol withdrawal syndrome. Patient has chronic alcohol abuse and dependence and drinks 1-2/5 of vodka daily. 1. Acute alcohol withdrawal syndrome with chronic alcohol abuse and dependence: She has been maintained on an Ativan taper, with CIWA protocol, thiamine folic acid, and multivitamin supplementation. Hallucinations, anxiety, tremor. Patient was on Librium 25 mg 3 times daily. Gradually tapered off. On CIWA monitoring. Patient improved. Hallucinations resolved. Abdominal pain, nausea no vomiting resolved. 2. Acute kidney injury secondary to dehydration from alcohol binge, and nausea and vomiting-continue IV fluids. The patient was admitted with creatinine 3.32 and resolved. Last two days creatinine 0.9. Lisinopril resumed with lower dose 10 mg daily and uptitrate gradually in 1 week to 20 mg daily if needed. 3 .COPD - stable. continue duonebs sceheduled q6 with prn albuterol -CXR with small effusion. Lungs clear. Continue incentive spirometry. 4. Depression/anxiety - home meds 5. HTN - trend. mildly elevated. will resume charmaine at dc. 6. Nicotine abuse - continue patch, gum 7. Hypomag/phos/natremia/kalemia -electrolytes abnormalities resolved. Repeat magnesium 1.7 today 8. Gastritis- PPI + Carafate, abdominal pain improving. Needs outpatient EGD. DVT ppx: heparin Discharge medication reconciliation done. Discharge follow-up instructions completed. Discharge process discussed with the patient and all questions were answered to patient's satisfaction. Patient is still has gait instability and was given prescription for Wheeled walker. [facility] PCP in 1 to 2 weeks. Total time spent, exact 35 minutes on discharge meds reconciliation, examination, review of imaging and blood test and discussion with the patient on follow-up instructions. Microbiology Past 72 Hours 12/08/18 11:20 Mucosa - Nose Respiratory Panel (PCR) - Final 12/06/18 11:35 Urine, Clean Catch Urine Culture - Final Culture exhibits no growth. Laboratory Results 12/08/18 16:39: POC Glucose 103 12/08/18 20:59: POC Glucose 115 H 12/09/18 06:39: POC Glucose 182 H 12/09/18 06:47: Sodium 135 L, Potassium 4.0, Chloride 97 L, Carbon Dioxide 29.0, Anion Gap 9, BUN 8, Creatinine 0.91, Estim Creat Clear Calc 58.90, Est GFR (MDRD) Af Amer 82, Est GFR (MDRD) Non-Af 68, BUN/Creatinine Ratio 8.8 L, Glucose 100, Calcium 8.3 L, Phosphorus 2.4 L, Magnesium 1.7 12/09/18 12:09: POC Glucose 122 H Subjective: The patient is more awake and alert oriented x3. Tremors are much less. Denies hallucinations which she had yesterday. Wants to go home. Objective: General: Alert, awake oriented x3. HEENT: Atraumatic, PERRLA, EOMI, Normocephalic Neck: Supple, No JVD, Negative Carotid Bruits Lungs: Clear to auscultation, No rhonchi, No wheeze, No rales, air entry diminished bilaterally. Cardiovascular: Regular rate, Regular Rhythm, Normal S1, Normal S2, No murmurs Abdomen: Bowel Sounds Present, Soft, Non Tender Extremities: No edema, Capillary Refill Less than 3 Seconds. Fine tremors of hand. Skin: No rashes, No breakdown Musculoskeletal: No Tenderness to Palpation of Joints or Extremities Neurological: Cranial nerves II-XII grossly intact, Deep Tendon Reflexes 2+/4 and Symmetrical, Neuro grossly intact, Motor Exam 5/5 strength throughout - Physical Exam Vital Signs Temp Pulse Resp BP Pulse Ox 98.2 F 103 H 18 128/85 H 97 12/09/18 11:57 12/09/18 11:57 12/09/18 11:57 12/09/18 11:57 12/09/18 11:57 Oxygen Flow Rate (L/min) 2 Oxygen Delivery Method Room Air Weight: 126 lb 15.78 oz Body Mass Index (BMI) 21.2 Intake and Output for Last 24 Hours 12/07/18 12/08/18 12/09/18 23:59 23:59 23:59 Intake Total 1200 / 1200 1100 / 1100 1320 / 1320 Output Total 800 / 800 Balance 400 / 400 1100 / 1100 1320 / 1320 Microbiology Past 72 Hours 12/08/18 11:20 Respiratory Panel (PCR) - Final Mucosa - Nose 12/06/18 11:35 Urine Culture - Final Urine, Clean Catch Culture exhibits no growth. Laboratory Tests Past 24 Hrs 12/09/18 06:47 Sodium 135 L Potassium 4.0 Chloride 97 L Carbon Dioxide 29.0 Anion Gap 9 BUN 8 Creatinine 0.91 Estim Creat Clear Calc 58.90 Est GFR (MDRD) Af Amer 82 Est GFR (MDRD) Non-Af 68 BUN/Creatinine Ratio 8.8 L Glucose 100 Calcium 8.3 L Phosphorus 2.4 L Magnesium 1.7 POC Glucose 12/09/18 12/09/18 12/08/18 12:09 06:39 20:59 POC Glucose 122 H 182 H 115 H 12/08/18 16:39 POC Glucose 103 Discharge Activity: May Not Drive Call your doctor if you observe: Fever of 101 or Higher, Inability to urinate, Inability to have a bowel movement, Shortness of breath, Dizziness, Fainting spells, Swelling in the ankles, Prolonged hiccoughing, Increased palpitations (irregular heartbeat), Calf discomfort, Uncontrolled pain Home Medications: Medications to take at Discharge albuterol sulfate 2.5 mg/3 mL (0.083 %) solution for nebulization 2.5 mg INHALATION Q4H PRN 04/04/18 loratadine 10 mg tablet 10 mg PO DAILY 04/04/18 Sucralfate [Carafate] 1 gm PO 4X/DAY 06/15/18 Fluticasone/Vilanterol [Breo Ellipta 100-25 Mcg INH] 1 puff INHALATION DAILY 07/16/18 Albuterol Sulfate [Ventolin Hfa] 1 - 2 puff IH Q6H PRN PRN 11/16/18 Mirtazapine 15 mg PO QHS 11/16/18 buPROPion SR [Wellbutrin SR (150mg tablets)] 150 mg PO BID 11/16/18 Pantoprazole Sodium [Protonix] 40 mg PO BID #50 tablet 11/21/18 Lisinopril [Zestril] 20 mg PO DAILY 12/05/18 Folic Acid 1 mg PO DAILY@0800 #30 tablet 12/09/18 Hydroxyzine HCl 25 mg PO BID PRN PRN #20 tablet 12/09/18 Multivitamins,Therapeutic [Multivitamin] 1 tablet PO DAILYCM tablet 12/09/18 Nicotine [Nicoderm Cq] 21 mg TRANSDERM. DAILY patch 12/09/18 Senna/Docusate Sodium [Senokot-S] 1 tablet PO BID PRN PRN tablet 12/09/18 Thiamine HCl [B-1] 100 mg PO DAILY #30 tablet 12/09/18 Following Prescrptions Were Given to Patient: Folic Acid 1 mg PO DAILY@0800 #30 tablet Hydroxyzine HCl 25 mg PO BID PRN PRN #20 tablet PRN Reason: Anxiety Thiamine HCl [B-1] 100 mg PO DAILY #30 tablet Primary Care Physician: Kellie Delarosa DO [Primary Care Provider] - Please follow up with your Primary Care Physician in: in 1 week Medical Necessity - Tobacco Use Smoking Status: Current every day smoker Tobacco Use: Cigarettes Meaningful Use Info Meaningful Use Diagnoses (Choose all that apply): None applicable Code Visit Inpatient E&M: 07799 Disch Hosp
--- NOTE | 2018-12-10 16:36 | CASEMGMT ---
SURINDER CURRY Note: Call received from Aimee @ [facility]. They had received incomplete script for walker and needed codes. This was unavailable from the chart review. -Call received from Tara Hays, friend of Tami Gonzales stating physician notified him Ensure Clear was recommended for pt on dc by Dr. Rothman. Tara attempted to get this through [facility], however documentation, script and ICD 10 codes were needed and he did not know what to do. -SURINDER CURRY called to [facility] @ . They do not have any record of pt yet and will assist once they receive proper documentation and script. -Call to Dr. Delarosa office, spoke with nurse. Updated on above and nurse states she will have new script faxed to [facility] for wheeled walker. She also suggested pt to come in for appointment and physician can address the Ensure clear with her and provide script, documentation if recommended. -SURINDER CURRY called to Tara Hays @ [phone] to update. Tara states he will speak with Dr. Miranda on Monday appt, but will also make appt for pt with Dr. Delarosa for Ensure. Tara was updated that new script will be faxed by Dr. Delarosa office for walker. No further questions or needs noted. Kellee MARIN RN ACM
== END 2018-12-09 15:25 | disposition home or self-care (01) | DRG 775 ==
LOC: ED 15:59 → MS2 16:01
PROVIDERS: Physician Assistant; Student in an Organized Health Care Education/Training Program; Admitting Provider Internal Medicine; Emergency Provider Emergency Medicine; Family Provider Family Medicine; PCP Family Medicine; Referring Provider Internal Medicine; Visit Provider Internal Medicine
DX: F10.239 Alcohol dependence with withdrawal, unspecified (principal); N17.9 Acute kidney failure, unspecified; E86.0 Dehydration; J44.9 Chronic obstructive pulmonary disease, unspecified; F33.9 Major depressive disorder, recurrent, unspecified; F41.9 Anxiety disorder, unspecified; I10 Essential (primary) hypertension; K29.70 Gastritis, unspecified, without bleeding; E83.42 Hypomagnesemia; E83.39 Other disorders of phosphorus metabolism; E87.1 Hypo-osmolality and hyponatremia; E87.6 Hypokalemia; Y90.3 Blood alcohol level of 60-79 mg/100 ml; Z79.51 Long term (current) use of inhaled steroids; Z79.899 Other long term (current) drug therapy; F17.210 Nicotine dependence, cigarettes, uncomplicated; R39.15 Urgency of urination; R44.1 Visual hallucinations
CPT/HCPCS: 36415; 70450; 71046; 76770; 80048; 80053; 80076; 80320; 81001; 82962; 83605; 83690; 83735; 84100; 85025; 87086; 87633; 94640; 97110; 97116; 97162; 97166; 97530; 97802; 99285; J7030; A4216; G0480; J2405; J3490

== ENCOUNTER → 2018-12-13 | Outpatient (CLI) | payer MEDICAID, SELFPAY ==
[2018-12-05 16:51] VITALS: BMI 21.2
--- NOTE | 2018-12-13 15:00 | RAD_ITS ---
STUDY: X-RAY - LUMBOSACRAL SPINE REASON FOR EXAM: Female, 58 years old. Chronic back pain. No known injury. TECHNIQUE: 7 view(s) of the lumbosacral spine were obtained including oblique views and flexion and extension views.. COMPARISON: None FINDINGS: Normal lumbar lordosis. There is no substantial scoliosis. There is normal alignment of the vertebrae. No abnormal movement occurs between the vertebral segments on the flexion extension views. There is multilevel endplate spondylosis of the lumbar vertebrae. There is multi-level degenerative disc disease with multi-level disc space narrowing. Facet joint osteoarthritis. Normal bilateral sacral ala, sacroiliac joints, and visualized sacrum. There is atherosclerotic calcification of the abdominal aorta without a demonstrated aneurysm. RAD/L/S Spine Bending Flex/Ext IMPRESSION: Degenerative changes of the spine, as detailed above. Electronically Signed: Marty Cam, at 15:37 EDT , Service support ,
== END | disposition home or self-care (01) ==
LOC: MTRAD 14:44
PROVIDERS: Family Provider Family Medicine; PCP Family Medicine; Referring Provider Family Medicine; Visit Provider Family Medicine
DX: M54.5 Low back pain (principal)
CPT/HCPCS: 72120

== ENCOUNTER 2018-12-24 08:40 | Day surgery (SDC) | payer MEDICAID, SELFPAY ==
[2018-12-14 10:07] VITALS: BMI 21.2
--- NOTE | 2018-12-17 08:38 | HP_ITS ---
Intake Vital Signs 12/14/18 Weight: 135 lb 12/14/18 Respiratory Rate 16 12/14/18 Body Mass Index (BMI) 21.2 Intake Visit Reasons: Hospital FU Ileus discuss upper/lower scope Chief Complaint: Abdominal/YADIRA Rn Anesthesiology Required: No Is patient in pain?: No Allergies Penicillins Allergy (Verified 12/14/18 10:06) WEAKNESS,VISION ISSUES Medications albuterol sulfate 2.5 mg/3 mL (0.083 %) solution for nebulization 2.5 mg INHALATION Q4H PRN 04/04/18 [History Confirmed 12/14/18] loratadine 10 mg tablet 10 mg PO DAILY 04/04/18 [History Confirmed 12/14/18] Sucralfate [Carafate] 1 gm PO 4X/DAY 06/15/18 [History Confirmed 12/14/18] Fluticasone/Vilanterol [Breo Ellipta 100-25 Mcg INH] 1 puff INHALATION DAILY 07/16/18 [History Confirmed 12/14/18] Albuterol Sulfate [Ventolin Hfa] 1 - 2 puff IH Q6H PRN PRN 11/16/18 [History Confirmed 12/14/18] Mirtazapine 15 mg PO QHS 11/16/18 [History Confirmed 12/14/18] buPROPion SR [Wellbutrin SR (150mg tablets)] 150 mg PO BID 11/16/18 [History Confirmed 12/14/18] Pantoprazole Sodium [Protonix] 40 mg PO BID #50 tab 11/21/18 [Rx Confirmed 12/14/18] Folic Acid 1 mg PO DAILY@0800 #30 tab 12/09/18 [Rx Confirmed 12/14/18] Hydroxyzine HCl 25 mg PO BID PRN PRN #20 tab 12/09/18 [Rx Confirmed 12/14/18] Lisinopril [Zestril] 10 mg PO DAILY #0 12/09/18 [Rx Confirmed 12/14/18] Multivitamins,Therapeutic [Multivitamin] 1 tab PO DAILYCM tab 12/09/18 [Rx Confirmed 12/14/18] Nicotine [Nicoderm Cq] 21 mg TRANSDERM. DAILY patch 12/09/18 [Rx Confirmed 12/14/18] Senna/Docusate Sodium [Senokot-S] 1 tab PO BID PRN PRN tab 12/09/18 [Rx Confirmed 12/14/18] Thiamine HCl [B-1] 100 mg PO DAILY #30 tab 12/09/18 [Rx Confirmed 12/14/18] polyethylene glycol 3350 17 gram/dose oral powder 17 g PO DAILY PRN #238 g 12/14/18 [Rx Confirmed 12/14/18] PFSH Medical History Hepatotoxicity, secondary to ETOH (Resolved) Elevated ETOH level (Acute) ETOH abuse (Chronic) Abnormal mammogram (Acute) Anxiety (Acute) Bipolar 1 disorder (Acute) COPD (chronic obstructive pulmonary disease) (Acute) History of hysterectomy (Acute) Insomnia (Acute) Surgical History History of (Acute) Family History Mother Hypertension Thyroid disorder CVA (cerebral vascular accident) Sister Heart disease Social History Smoking Status: Current every day smoker substance use type: does not use HPI HPI HPI: ANISA PABLO, is a 58 F who presents to the office today for HPI HPI Surgical H&P: Yes HPI: ANISA PABLO, is a 58 F who presents to the office today for EGD and colonoscopy due to abdominal pain. Patient was previously in the hospital due to an ileus as well as alcohol withdrawal. Patient is an alcoholic and previously has been in rehab but has relapsed. Patient states she was most recently in the hospital and discharged on 12/09. She has not had any alcohol since then. Currently patient denies any pain but states that yesterday her whole body hurt including her stomach. Patient states her epigastric pain/right upper quadrant pain can range from a 1 to a 10/10 patient states she usually has bowel movements daily however since she has left the hospital she is only had 2 bowel movements in the last 5 days. Patient is unsure if she is really had any blood in the stool. Patient denies family history of colon cancer states her mother did have cancer but she believes it was uterine. Patient states she is committed to staying sober as the last time she was drinking she did have hallucinations so she has restarted her counseling as well. Patient has never had an EGD or colonoscopy. ROS General General: Yes fatigue; no weight change, colon cancer, breast cancer or weakness HEENT HEENT: No difficulty swallowing, eye injury, eye surgery, swollen glands or hoarseness Endo Endocrine: No thyroid disease, diabetes mellitus, thyroid cancer, Hair loss, heat intolerance or cold intolerance Skin Skin: No rash or changing moles Breast Breast: Yes abnormal mammogram; no left breast lump, right breast lump, nipple discharge, breast pain, abnormal US or breast enlargement Musc Musculoskeletal: Yes back problems and arthritis; no rheumatoid arthritis, gout or joint pain Cardio Cardiovascular: No murmur, pacemaker, heart disease, atrial fibrillation, high blood pressure, heart attack, heart stent, palpitations, shortness of breat with exertion or chest pain Psych Psychiatric: Yes depression and anxiety; no hearing voices Resp Respiratory: Yes shortness of breath, Yes sleep apnea, Yes cough, Yes COPD, Yes asthma, No emphysema, No wheezing Gastro Gastrointestinal: No abdominal pain, No nausea or vomiting, No diarrhea, No constipation, No blood in stool, Yes acid reflux, No hemorrhoids, No ulcers, No gallbladder problem, No black,tarry stools Tashi Hematologic: No blood thinners, No blood disorders, No bleeding, Yes anemia, No blood clots Neuro Neurologic: No weakness Exam Const General: cooperative, comfortable, no acute distress Chest Breast Palpation: No nipple discharge Resp Effort & Inspection: normal respiratory effort Cardio Rate: regular rate Heart Sounds: no murmurs GI Inspection: non-distended Palpation: soft, no guarding, nontender Neuro General: oriented x3 Cranial Nerves: CN's II-XI intact bilaterally Psych Affect: normal affect Assessment & Plan Problems 1. Epigastric abdominal pain R10.13 2. RUQ abdominal pain R10.11 3. History of ileus Z87.19 4. ETOH abuse F10.10 Plan I have discussed the above with the patient. I have offered the patient EGD and colonoscopy for evaluation. I have explained the risks/benefits of the procedure and described the procedure. I have discussed the risks with the patient, including but not limited to: infection, bleeding, perforation of the GI tract requiring emergency surgery, inability to complete the procedure, injury to any internal organs, complications of anesthesia, etc. - the patient understands and agrees to proceed. I have answered all the patient's questions to the patient's satisfaction and the patient has no further questions. The patient has been given instructions for the colon cleansing preparation. 2- day of clears, magnesium citrate the first day and MiraLAX Dulcolax split prep the second day Mary Miranda M.D. Pager: [phone] [facility] [address] [place] [address], [address] [place] [address] Office: [phone] Medications New: polyethylene glycol 3350 (Miralax) 17 grams PO DAILY PRN 238 grams 0RF laxative effect Plan Detail Follow Up We will schedule EGD and colonoscopy Coding Level of Care Code Off vis,est,level 3 Diagnoses Epigastric abdominal pain R10.13 RUQ abdominal pain R10.11 History of ileus Z87.19 ETOH abuse F10.10 12/17/18 0838 <Electronically signed by Mary Miranda MD> Date Mary Miranda MD I have examined the patient the following changes are noted: Patient still states she had some mild diffuse abdominal pain prior to beginning the prep. Patient did state that prep was clear with the 2-day prep.
[2018-12-24] VITALS (7 sets, daily range): BP systolic 114–149; BP diastolic 73–84; PULSE 76–84; RESP 16–18; TEMP 36.4–36.8; O2SAT 96–100; BMI 20.7
--- NOTE | 2018-12-24 09:45 | IMM_PTH ---
PATIENT: ANISA PABLO LOC: EN U#:[id number] AGE/SX: 58/F ROOM: RE12/24/[address]: Dr. Mary Miranda MD : 1960 BED: DIS: 12/24/2018 SPEC #: [id number] RECD: 12/24/18 14:53 STATUS: BEATRIZ REQ #: [id number] KOKI: 12/24/18 09:[address]: Mary Miranda DEPT: IMMUNOHISTOCHEMISTRY RECD BY: Carmelita Strange ENTERED: 12/24/18 14:54 SP TYPE: IMMUNO OTHR DR: Dr. Kellie Delarosa, DO Tissues: A - Stomach, NOS Procedures: H Pylori (initial) PHYSICIAN & INSTITUTION [place] [id number] SPECIMEN INFORMATION: Tissue Source: A - Antrum biopsy Clinical Info: Epigastric pain, RUQ pain, history of ileus Specimen Number: [id number] CPT code: 82280 METHODOLOGY: Deparaffinized sections of prefer/formalin-fixed tissue or PAP/DQ stained slides are incubated with monoclonal/polyclonal antibodies/oligonucleotide probes. Localization is made via biotin free immunoperoxidase method. Appropriate controls are performed and reacted as expected. Results on target cell population are indicated in the following table: RESULTS: ANTIBODY / CLONE RESULT Block A H Pylori (polyclonal) negative These tests were developed and their performance characteristics determined by [facility]. They may not have been cleared or approved by the U.S. Food and Drug Administration. The FDA has determined that such clearance or approval is not necessary. INTERPRETATION: A. Antrum biopsy: Negative for Helicobacter pylori organisms. SJ:darin 12/25/18
--- NOTE | 2018-12-24 10:19 | OP.ENDO_ITS ---
12/24/2018 Kellie Delarosa [address] [place] [address] Re : Upper GI endoscopy procedure for Tami Christian Dear Dr. Delarosa This procedure was performed on Monday, December 24, 2018. My impressions and recommendations are as follows: Impressions : - Z-line irregular, 43 cm from the incisors. Biopsied. - Erythematous mucosa in the antrum. Biopsied. - Normal examined duodenum. Recommendations : - Await pathology results. - Discharge patient to home. - Continue present medications. Including Protonix 40 mg p.o. twice daily and Carafate 1 g p.o. 4 times daily x1 month My findings are described in the full procedure note, which is enclosed. If I can be of further assistance, please feel free to contact me at Doctor phone number(s): , Work: . Sincerely, MD Mary Donaldson MD 12/24/2018 10:18:59 AM This report has been signed electronically.
--- NOTE | 2018-12-24 10:21 | OP.ENDO_ITS ---
12/24/2018 Kellie Delarosa [address] [place] [address] Re : Colonoscopy procedure for Tami Christian Dear Dr. Delarosa This procedure was performed on Monday, December 24, 2018. My impressions and recommendations are as follows: Impressions : - The entire examined colon is normal on direct and retroflexion views. - No specimens collected. Recommendations : - Discharge patient to home. - Continue present medications. - Repeat colonoscopy in 10 years for screening purposes. My findings are described in the full procedure note, which is enclosed. If I can be of further assistance, please feel free to contact me at Doctor phone number(s): , Work: . Sincerely, MD Mary Donaldson MD 12/24/2018 10:21:18 AM This report has been signed electronically.
--- NOTE | 2018-12-24 12:48 | EGD_PTH ---
PATIENT: ANISA PABLO LOC: EN U#:[id number] AGE/SX: 58/F ROOM: RE12/24/[address]: Dr. Mary Miranda MD : 1960 BED: DIS: 12/24/2018 SPEC #: [id number] RECD: 12/24/18 12:48 STATUS: BEATRIZ RAMONE #: [id number] KOKI: 12/24/18 12:[address]: Mary Miranda DEPT: SURGICAL PATHOLOGY RECD BY: Fabricio Perez ENTERED: 12/24/18 13:30 SP TYPE: EGD BIOPSY ANGELINA DR: Dr. Kellie Delarosa, DO Tissues: A - Gastric mucous membrane B - Gastric mucous membrane Procedures: Special Stain Group II Surgery Specimen Level IV Alcian Blue/PAS (control) HEADER OPERATION: Colonoscopy, EGD ([facility] [place]) PRE-OP DIAGNOSIS: Epigastric pain, RUQ pain, history of ileus TISSUE SUBMITTED: A - Antrum biopsy, H. pylori and path, B - GE junction biopsy MICROSCOPIC DIAGNOSIS A. Antrum, biopsy: Mild gastritis. See microscopic description and comment. B. GE junction, biopsy: Fragments of gastroesophageal mucosa with mild chronic inflammation. Focal minimal intestinal metaplasia (goblet cell metaplasia) is noted, consistent with Jacques's esophagus. Negative for dysplasia. See comment. SJ:rg 12/25/18 COMMENT A. The results of immunohistochemistry for Helicobacter pylori will be reported separately ([id number]). B. Alcian blue/PAS stain with matched control is used in the evaluation of the specimen. Case has been reviewed in consultation with Dr. Singleton who concurs with the above diagnosis. IDC:AM MICROSCOPIC DESCRIPTION Slides are reviewed. A. The specimen shows fragments of gastric mucosa with chronic inflammatory cell infiltrates in the lamina propria consisting of lymphocytes and plasma cells, consistent with mild chronic gastritis. GROSS DESCRIPTION A - Received in fixative is one container labeled with the patient's name and designated antrum biopsy. The specimen consists of one irregular fragment of light medina soft tissue that measures 0.4 x 0.3 x 0.1 cm. The specimen is totally submitted in one cassette. B - Received in fixative is one container labeled with the patient's name and designated GE junction biopsy. The specimen consists of two irregular fragments of light medina soft tissue that in aggregate measure 0.5 x 0.3 x 0.1 cm. The specimen is totally submitted in one cassette. / SJ:rg 12/24/18 TC:3 CPT: 34463 x2, 70395
== END 2018-12-24 11:16 | disposition home or self-care (01) ==
LOC: EN 08:40 → AC 08:41
PROVIDERS: Family Provider Family Medicine; PCP Family Medicine; Referring Provider Family Medicine; Visit Provider Surgery
PROC: 0DJD8ZZ Inspection of Lower Intestinal Tract, Via Natural or Artificial Opening Endoscopic (ICD-10-PCS; CPT 45378; principal; 2018-12-24 09:40)
DX: K29.50 Unspecified chronic gastritis without bleeding (principal); K22.70 Barrett's esophagus without dysplasia; K21.9 Gastro-esophageal reflux disease without esophagitis; F41.9 Anxiety disorder, unspecified; F31.9 Bipolar disorder, unspecified; J44.9 Chronic obstructive pulmonary disease, unspecified; F17.200 Nicotine dependence, unspecified, uncomplicated; F10.10 Alcohol abuse, uncomplicated; D64.9 Anemia, unspecified; K74.60 Unspecified cirrhosis of liver; I10 Essential (primary) hypertension; G25.81 Restless legs syndrome; Z79.51 Long term (current) use of inhaled steroids; Z79.899 Other long term (current) drug therapy
CPT/HCPCS: 43239; 45378; 88305; 88313; 88342; J7120; J2405

== ENCOUNTER 2019-01-29 14:00 | Outpatient (RCR) | payer MEDICAID, SELFPAY ==
[2018-12-14 10:07] VITALS: BMI 21.2
--- NOTE | 2019-01-03 14:49 | HP.PTEVAL_ITS ---
Patient's Visit Information ANISA PABLO is a 58 year old F referred to Physical Therapy by Kellie Delarosa DO with a diagnosis of Low back pain. Date of Evaluation: 12/20/18 Physical Therapist: Graeme Farmer DPT - Visit Plan Frequency: 2x /Week Duration: 4 Weeks Plan: Start with core/postureal stability exercises in aquatic setting. Add in HS and hip flexor strentheing. Consider deep water hanging. Progress as toelrated. - Subjective Findings: Pt. is here today for her initial evauation with diagnosis of low back pain. Pt. reports ahving on and off low back pain for years. 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 Pt. was until recently working at a local [employer]vel[employer] which involved a lot of standing. Pt. reports this also caused increased low back pain. Its reported that she does drink 2-3 drinks of vodka a day. Daily smoker. Pt. has had an xray of lumbar spine DDD, denerative chances to facet joints of lumbar spine. Pt. reports occassional pain down her legs, but worst pain is in lumbar spine. Pt. denies N/T. Pt. also reports no LE muscle weakness. Pt. reports no positional changes reduce her symptoms, but reduces with time. Pt. is hopeful to reduce pain in order to get back to all work and recraetional activities without limitations. - Pain lumbar spine Pain Intensity (Out of 10): 4 Pain Intensity Range: 3, 6 - Objective POSTURE: Pt. has general flexed posture, FH posture, rounded shoulders. Pt. has reduced lumbar lordosis as well. PALPATION: Pt. has tenderness along lumbar and lower thoracic erector spinea, no pain at spinous process. Pt. has mild tenderness at bilateral PSIS, no gluteal pain. NEURO: Normal throuhgout. ROM: lumbar spine: flexion min loss increase NW, ext mod loss increase NW, rotation min loss bilat NE, SB L min loss increase NW. Pt. has tight HS and hip flexors bilaterally. MMT: RLE- lori/knee 5/5 throughout; hip- flexion 4/5, abd 4/5, ext 4/5. LLE- ankle/knee 5/5 throughout; hip- flexion 4/5, abd 4/5, ext 4/5. Core strength- poor+. GAIT: Pt. ambulates with slight flexed posture. Slight hip ER. Pt. reports no increase in symptoms with walking. - Special Tests L/S Slump test left side: Negative L/S Slump test right side: Negative L/S Left Straight Leg Raise: Negative L/S Right Straight Leg Raise: Negative Lumbar Standing: Flexion - Mechanical Response: No effect Lumbar Standing: Flexion - Symptoms During Testing: Abolishes Lumbar Standing: Flexion - Symptoms After Testing: No worse Lumbar Standing: Extension - Mechanical Response: No effect Lumbar Standing: Extension - Symptoms During Testing: Increases Lumbar Standing: Extension - Symptoms After Testing: Worse Lumbar Standing: Right Side Glides - Mechanical Response: No effect Lumbar Standing: Right Side [employer] [place] - Symptoms During Testing: No effect Lumbar Standing: Right Side [employer] [place] - Symptoms After Testing: No effect Lumbar Standing: Left Side [employer] [place] - Mechanical Response: No effect Lumbar Standing: Left Side [employer] [place] - Symptoms During Testing: No effect Lumbar Standing: Left Side [employer] [place] - Symptoms After Testing: No effect Lumbar Lying: Flexion - Mechanical Response: No effect Lumbar Lying: Flexion - Symptoms During Testing: Increases Lumbar Lying: Flexion - Symptoms After Testing: Worse Lumbar Lying: Extension - Mechanical Response: No effect Lumbar Lying: Extension - Symptoms During Testing: Increases Lumbar Lying: Extension - Symptoms After Testing: Worse - Goals Goal 1:: Pt. to be I with HEP. Goal Time Frame: 4-6 Weeks Goal 2:: Pt. to have increased BLE and core strength increased by 1/2 grade of all effected musculature. Goal Time Frame: 4-6 Weeks Goal 3:: Pt. to have increased HS length to greater than 75deg in 90/90 positioning without increase in symptoms (bilaterally). Goal Time Frame: 4-6 Weeks Goal 4:: Pt. to ambulates with normal gait pattern wtihout increase in symptoms. Goal Time Frame: 4-6 Weeks Goal 5:: Pt. to complete full work day with 0-2/10 pain allowing for increased tolerance. Goal Time Frame: 4-6 Weeks Goal 6:: Pt. to sleep thorughout the night without increase in symptoms. - Rehabilitation Potential Physical Therapy Diagnosis: Pt. has signs and symptoms consistent with lumbar spine pain. Pt. has no discogenic testing this date, and did not have directional preferect. pt. is weak through her core musclulature and hips and would benefit from PT to work on those areas. Rehabilitation Potential: Good - Anticipated Interventions Patient/Client Instruction: Educate patient on: Condition, Plan of Care, Risk Factors, Benefits of Fitness Program For the Purpose of:: To foster healthy habits, To improve decision making, To facilitate caregiver knowledge, To improve self management, To prevent re- injury, To improve ability to perform tasks related to life management, To improve tolerance to ADL's Therapeutic Exercise to Include: Strength training, Power training, Endurance training, Body mechanics, Postural training, Flexibilty training, In an aquatic setting, Passive ROM, Active ROM, Dynamic Lumbar Stabilization For the Purpose of:: To decrease pain, To decrease swelling/inflammation, To increase ROM, To improve nutrient delivery to tissue, To increase oxygenation perfusion, To improve muscle performance and motor function, To improve ability to perform ADL's Thank you for the opportunity to evaluate your patient. For Medicare and Medicare HMO plans, please review the plan of care and approve it. It will need to be FAXED BACK to us at [phone] for Medicare purposes. For Medicare only, by signing this I certify the plan of care. Please let me know if there are questions or concerns regarding this plan of care. Physician Signature: Date:
--- NOTE | 2019-01-29 14:47 | HP.PTDCSUM ---
HP - PT D/C Summary It has been my pleasure to treat ANISA PABLO under orders from Kellie Delarosa DO, for the diagnosis of Low back pain for a total of 9 visit(s). Discharge Date: 01/29/19 Please see the following information for a summary of their discharge status. - Subjective Subjective: Pt. reports I have been feeling better, but I know it is because I am off work. Pt. reports that the pain will resume once she starts working. Pt. does have intermitting increase in lumbar and thoracic spine pain, worse with lifting, reaching or any ADL where she is reaching out forward. - Pain lumbar spine Pain Intensity (Out of 10): 4 Lumbar Spine Pain Intensity (Out of 10): 1 R hip Pain Intensity (Out of 10): 1 - Overall Improvement % Improvement: 25 - Objective Objective/Function: ROM: flexion- min/nil loss increase nW, ext min loss mild increase nW, SB min loss NE, rotation min loss NE. MMT: RLE- ankle/knee 5/5 throughout; hip- flexion 4+/5, abd 4+/5, ext 4/5. LLE- ankle/knee 5/5 throughout; hip- flexion 4+/5, abd 4+/5, ext 4/5. Core strength- poor+. POSTURE: pt. has improved postural awareness, but does fall back into slouched postures without Vcing. - Goals Goal 1:: Pt. to be I with HEP. Goal Progress: Goal Met Goal 2:: Pt. to have increased BLE and core strength increased by 1/2 grade of all effected musculature. Goal Progress: Goal Met Goal 3:: Pt. to have increased HS length to greater than 75deg in 90/90 positioning without increase in symptoms (bilaterally). Goal Progress: Progressing Goal 4:: Pt. to ambulates with normal gait pattern wtihout increase in symptoms. Goal Progress: Progressing Goal 5:: Pt. to complete full work day with 0-2/10 pain allowing for increased tolerance. Goal Progress: Not Progressing Goal 6:: Pt. to sleep thorughout the night without increase in symptoms. Goal Progress: Progressing - Plan Plan: Pt. to be Dc to HEP and back to physician at this point in time. Pt. reports overall minimal (25%) change in symptoms. - D/C Information Discharge Comments: Pt. was treated for her low back pain with aquatic PT. Therapy focused on core stability exercises and ROM. Pt. reports no issues while in the pool, but attributes her decreased symptosm to being off work. She did not think that aquatic therapy did much for improving her symptoms. Pt. is to follow back up with her physician to determine best course of action moving forward. If there are questions or concerns regarding this patient's physical therapy, please feel free to call me at [phone]. Thank you for the referral of this patient. Sincerely, RICCARDO LorenzanaT
== END 2019-01-29 19:00 | disposition home or self-care (01) ==
LOC: PT 14:00
PROVIDERS: Family Provider Family Medicine; PCP Family Medicine; Referring Provider Family Medicine; Visit Provider Family Medicine
DX: M54.5 Low back pain (principal)
CPT/HCPCS: 97113; 97161; 97530

== ENCOUNTER → 2019-02-25 | Outpatient (CLI) | payer MEDICAID, SELFPAY ==
[2018-12-24 09:00] VITALS: BMI 20.7
[2019-02-25 14:00] LABS: Absolute Lymphocyte Count 2.87 X10^3/uL (0.83-4.51); Absolute Neutrophil Count 7.2 X10^3/uL (2.0-7.7); Basophil# 0.03 X10^3/uL; Basophil% 0.3 % (0-1); Eosinophil# 0.14 X10^3/uL; Eosinophils% 1.3 % (0-5); Hematocrit 28.7 % (37-47); Hemoglobin 9.5 g/dL (12.0-15.0); Lymphocyte # 2.87 X10^3/ul (4.0); Lymphocyte % 26.4 % (19-41); Mean Corp Hgb Conc 33.1 g/dL (32-36); Mean Corpuscular Hgb 30.4 pg (27.0-32.0); Mean Platelet Vol. 8.9 fl (6.2-12.0); Monocyte# 0.56 X10^3/uL; Monocyte% 5.1 % (0-10); NRBC Flagged by Analyzer 0 % (0-5); Neutrophil # 7.24 X10^3/uL (2.7-7.7); Neutrophil % 66.5 % (47-70); Platelet Count 239 K/mm3 (150-450); RBC Distribution Width CV 13.8 % (11.6-14.6); RBC Distribution Width SD 46.5 fl (35.1-43.9); Red Blood Count 3.12 M/mm3 (4.2-5.4); White Blood Count 10.9 K/mm3 (4.4-11.0)
[2019-02-25 14:53] LABS: Vitamin B12 > 2000 pg/mL (211-911)
[2019-02-25 15:38] LABS: ALB/GLOB Ratio 0.9 RATIO (0.9-2.4); AST(SGOT) 21 U/L (15-37); Alanine Aminotransfer ALT/SGPT 21 U/L (13-56); Albumin, Serum 3.7 g/dL (3.2-5.0); Alkaline Phosphatase 78 U/L (45-117); Anion Gap 9 (5-15); BUN 44 mg/dL (7-18); BUN/Creat Ratio 15.2 RATIO (10-20); Calcium,Total 9.1 mg/dL (8.5-10.1); Chloride 109 mmol/L (98-107); EST Glomerular Filtration Rate 18 mL/min (>60); Est Glom Filt Rate - Afr Amer 22 mL/min (>60); Ferritin 76 ng/mL (8-252); Folates, (Folic Acid) > 100.00 ng/mL (3.1-55.4); Globulin 3.9 g/dL (2.2-4.2); Glucose 97 mg/dL (74-106); Iron 70 ug/dL (50-170); Magnesium 1.7 mg/dL (1.6-2.6); Potassium 4.3 mmol/L (3.5-5.1); Protein, Total 7.6 g/dL (6.4-8.2); Sodium Level 140 mmol/L (136-145)
== END | disposition home or self-care (01) ==
LOC: LAB 13:41
PROVIDERS: Family Provider Family Medicine; PCP Family Medicine; Referring Provider Family Medicine; Visit Provider Family Medicine
DX: K72.90 Hepatic failure, unspecified without coma (principal); E61.1 Iron deficiency; F10.11 Alcohol abuse, in remission; R53.83 Other fatigue; D64.9 Anemia, unspecified; R10.9 Unspecified abdominal pain
CPT/HCPCS: 36415; 80053; 82140; 82607; 82728; 82746; 83540; 83735; 85025

== ENCOUNTER → 2019-03-07 | Outpatient (CLI) | payer MEDICAID, SELFPAY ==
[2018-12-24 09:00] VITALS: BMI 20.7
--- NOTE | 2019-03-07 06:38 | MRI_ITS ---
STUDY: MRI LUMBAR SPINE WITHOUT CONTRAST REASON FOR EXAM: Female, 58 years old. Chronic low back pain, no injury TECHNIQUE: Standardized fat and water weighted pulse sequences were obtained in the sagittal and axial planes. COMPARISON: Lumbar spine x-rays 12/13/2018 FINDINGS: T12-L1: Normal endplates. Normal disc height, hydration and morphology. Normal bilateral facet joints. Normal central canal and bilateral lateral recesses. Normal bilateral intervertebral neural foramina. Normal lumbar lordosis. There is no substantial scoliosis. Normal conus medullaris that terminates at the L1-2: Normal endplates. There is mild annular disc bulge and disc space narrowing. Normal bilateral facet joints. Normal central canal and bilateral lateral recesses. Mild bilateral foraminal narrowing. L2-3: Normal endplates. There is mild annular disc bulge and disc desiccation. Normal bilateral facet joints. Normal central canal and bilateral lateral recesses. Normal bilateral intervertebral neural foramina. L3-4: Normal endplates. There is mild annular disc bulge and small posterior annular tear. Normal bilateral facet joints. There is mild ventral thecal sac narrowing. Normal bilateral lateral recesses. Normal bilateral intervertebral neural foramina. L4-5: Normal endplates. There is mild annular disc bulge and small posterior annular tear. Normal bilateral facet joints. Normal central canal and bilateral lateral recesses. Normal bilateral intervertebral neural foramina. L5-S1: Normal endplates. Normal disc height, hydration and morphology. Normal bilateral facet joints. Normal central canal and bilateral lateral recesses. Normal bilateral intervertebral neural foramina. Normal visualized sacral ala. Normal visualized paraspinous soft tissue structures. MRI/Spine Lumbar (Routine) IMPRESSION: Mild degenerative changes of the spine. Electronically Signed: Shira Cee, at 11:02 EDT Tel , Service support ,
== END | disposition home or self-care (01) ==
LOC: MRI 06:23
PROVIDERS: Family Provider Family Medicine; PCP Family Medicine; Referring Provider Family Medicine; Visit Provider Family Medicine
DX: M54.5 Low back pain (principal); M54.10 Radiculopathy, site unspecified
CPT/HCPCS: 72148

== ENCOUNTER → 2019-04-05 | Outpatient (CLI) | payer MEDICAID, SELFPAY ==
[2018-12-24 09:00] VITALS: BMI 20.7
--- NOTE | 2019-04-05 09:45 | RAD_ITS ---
STUDY: X-RAY - THORACIC SPINE REASON FOR EXAM: Female, 58 years old. Pain TECHNIQUE: 2 view(s) of the thoracic spine were obtained. COMPARISON: None. FINDINGS: Normal kyphosis of the thoracic spine. There is no substantial scoliosis. There is demineralization of the thoracic spine with endplate spondylosis. There is multilevel disc space narrowing of the thoracic spine. The soft tissue structures are unremarkable. RAD/Thoracic Spine 3 Views IMPRESSION: Mild Degenerative change, no visualized fracture. Electronically Signed: Tami Ford MD at 12:10 EDT Tel , Service support ,
== END | disposition home or self-care (01) ==
LOC: MTRAD 09:43
PROVIDERS: Family Provider Family Medicine; PCP Family Medicine; Referring Provider Nurse Practitioner Family; Visit Provider Nurse Practitioner Family
DX: M54.6 Pain in thoracic spine (principal); M47.814 Spondylosis without myelopathy or radiculopathy, thoracic region
CPT/HCPCS: 72072

== ENCOUNTER → 2019-04-25 | Outpatient (CLI) | payer MEDICAID, SELFPAY ==
[2018-12-24 09:00] VITALS: BMI 20.7
[2019-04-25 15:46] LABS: Iron 75 ug/dL (50-170)
== END | disposition home or self-care (01) ==
LOC: LAB.FUTURE 14:40
PROVIDERS: Family Provider Family Medicine; PCP Family Medicine; Referring Provider Family Medicine; Visit Provider Family Medicine
DX: D64.9 Anemia, unspecified (principal)
CPT/HCPCS: 36415; 83540

== ENCOUNTER → 2019-05-21 | Outpatient (CLI) | payer MEDICAID, SELFPAY ==
[2018-12-24 09:00] VITALS: BMI 20.7
[2019-05-21 15:50] LABS: Hemoglobin 10.4 g/dL (12.0-15.0); Mean Corp Hgb Conc 31.5 g/dL (32-36); Mean Corpuscular Hgb 29.4 pg (27.0-32.0); Mean Corpuscular Volume 93.2 fL (81-99); Mean Platelet Vol. 9.1 fl (6.2-12.0); Platelet Count 319 K/mm3 (150-450); RBC Distribution Width CV 12.9 % (11.6-14.6); RBC Distribution Width SD 43.8 fl (35.1-43.9); Red Blood Count 3.54 M/mm3 (4.2-5.4); White Blood Count 11.7 K/mm3 (4.4-11.0)
[2019-05-21 15:56] LABS: Protein, Urine (Random) 58.7 mg/dL (<11.9); Protein:Creat Ratio 356 mg/g CRE (0-200)
[2019-05-21 16:13] LABS: Albumin, Serum 3.9 g/dL (3.2-5.0); BUN 35 mg/dL (7-18); BUN/Creat Ratio 15.8 RATIO (10-20); Calcium,Total 9.5 mg/dL (8.5-10.1); Chloride 104 mmol/L (98-107); Creatinine, Serum 2.21 mg/dL (0.55-1.02); EST Glomerular Filtration Rate 24 mL/min (>60); Est Glom Filt Rate - Afr Amer 29 mL/min (>60); Glucose 94 mg/dL (74-106); Potassium 5.2 mmol/L (3.5-5.1); Sodium Level 137 mmol/L (136-145)
[2019-05-24 12:07] LABS: PROELU- Albumin, Urine 60.8 % (.); PROELU- Alpha-1-Globulin,Ur 3.6 % (.); PROELU- Alpha-2-Globulin,Ur 9.2 % (.); PROELU- Beta Globulin, Ur 14.6 % (.); PROELU- Gamma Globulin, Ur 11.7 % (.); Total Protein, Ur 66.2 mg/dL (Not Estab.)
== END | disposition home or self-care (01) ==
LOC: POLAB3 14:16
PROVIDERS: Family Provider Family Medicine; PCP Family Medicine; Visit Provider Internal Medicine Nephrology
DX: N17.9 Acute kidney failure, unspecified (principal); D64.9 Anemia, unspecified; R80.9 Proteinuria, unspecified
CPT/HCPCS: 36415; 80069; 82570; 84156; 84166; 85027

== ENCOUNTER → 2019-05-30 10:31 | Outpatient (CLI) | payer MEDICAID, SELFPAY ==
[2018-12-24 09:00] VITALS: BMI 20.7
[2019-05-30 13:09] LABS: Albumin, Serum 3.8 g/dL (3.2-5.0); BUN 27 mg/dL (7-18); BUN/Creat Ratio 20.8 RATIO (10-20); Calcium,Total 9.1 mg/dL (8.5-10.1); Chloride 103 mmol/L (98-107); EST Glomerular Filtration Rate 45 mL/min (>60); Est Glom Filt Rate - Afr Amer 54 mL/min (>60); Glucose 94 mg/dL (74-106); Phosphorus 2.9 mg/dL (2.5-4.9); Potassium 3.9 mmol/L (3.5-5.1); Sodium Level 137 mmol/L (136-145)
== END ==
PROVIDERS: Family Provider Family Medicine; PCP Family Medicine; Referring Provider Internal Medicine Nephrology; Visit Provider Internal Medicine Nephrology
DX: N17.9 Acute kidney failure, unspecified (principal)
CPT/HCPCS: 36415; 80069

== ENCOUNTER → 2019-08-23 11:17 | Outpatient (CLI) | payer MEDICAID, SELFPAY ==
[2018-12-24 09:00] VITALS: BMI 20.7
--- NOTE | 2019-08-23 11:20 | RAD_ITS ---
STUDY: X-RAY - CERVICAL SPINE REASON FOR EXAM: Female, 58 years old. Cervical pain TECHNIQUE: 5 view(s) of the cervical spine were obtained. The view of the odontoid is limited as the patient is still wearing earrings projected over the cervical spine. COMPARISON: None FINDINGS: There are degenerative changes of the anterior atlantoaxial articulation. Normal odontoid process. Normal cervical lordosis. There is spondylosis C5-C6 C6-C7. C6-C7 there is disc space narrowing. There is left greater than right mild neural foraminal narrowing C6-C7. There are atherosclerotic vascular calcifications of the carotid arteries. RAD/Cerv Spine 4 or 5 Views IMPRESSION: Degenerative change. No visualized acute loss of height or alignment. Electronically Signed: Tami Ford MD at 18:02 EST Tel , Service support ,
== END ==
PROVIDERS: PCP Family Medicine; Referring Provider Nurse Practitioner Family; Visit Provider Nurse Practitioner Family
DX: M54.2 Cervicalgia (principal)
CPT/HCPCS: 72050

== ENCOUNTER 2019-10-17 15:20 | Inpatient (IN) | payer MEDICAID, SELFPAY ==
[2018-12-24 09:00] VITALS: BMI 20.7
[2019-10-17 15:21] VITALS: BP 143/93; PULSE 102; RESP 15; TEMP 36.6; O2SAT 98; BMI 22.3
--- NOTE | 2019-10-17 15:54 | EKG12_ITS ---
Test Reason : SUB ABUSE Blood Pressure : / mmHG Vent. Rate : 093 BPM Atrial Rate : 093 BPM P-R Int : 172 ms QRS Dur : 092 ms QT Int : 382 ms P-R-T Axes : 083 089 086 degrees QTc Int : 474 ms Normal sinus rhythm Normal ECG Confirmed by LUIZ NARVAEZ, LAYLA ([id number]), editorial intern JAGDISH ZELAYA ([id number]) on 10/21/2019 8:32:45 AM Referred By: BRIANNA Confirmed By:LAYLA DEE MD
--- NOTE | 2019-10-17 16:24 | ED.VIS.GEN ---
History of Present Illness Informant: Patient Onset: Weeks - 1 week Context: Gradual Onset Timing: Continuous Quality: lightheaded Location: head Current Severity: Severe Maximum Severity: Severe Worsened by: nothing Relieved by: nothing Associated Symptoms: lightheaded Narrative: 51-year-old female with a history of alcohol abuse presents to the emergency department requesting detox from alcohol. Patient was actually admitted to an outpatient treatment center for a week and left there 8 days ago and she states immediately upon leaving the facility she began to drink daily. Prior to that she had been sober for about 9 months since her last admission here last year. She drinks about 1/5 of vodka per day. Her last drink was just prior to arrival. She does have a history of alcohol withdrawal. She has been an alcoholic for more than 20 years. She has not had any vomiting or diarrhea she denies any falls injuries or traumas. Prior similar symptoms: Yes Recent Illness/Hospitalization: No <Landen Brewer - Last Filed: 10/17/19 17:35> <Nanci Donato - Last Filed: 10/17/19 20:58> Chief Complaint: Substance Abuse Past Medical History Prior records reviewed: Yes Past Medical History: - - alcohol abuse, GERD Surgical History: hysterectomy, - - , implantation of bladder sling Lives: With Family Smoking Status: Current every day smoker Alcohol: Heavy Drugs: None - Family History Maternal Family History: Family History (Last Reviewed 12/14/18 @ 10:06 by Enedina Maldonado) Mother Hypertension Thyroid disorder CVA (cerebral vascular accident) Sister Heart disease Family History: Reports: Hypertension, Stroke, - - Thyroid disease Paternal Family History: Family History (Last Reviewed 12/14/18 @ 10:06 by Enedina Madlonado) Mother Hypertension Thyroid disorder CVA (cerebral vascular accident) Sister Heart disease Family History: Reports: - - Alcoholism Sibling Family History: Family History (Last Reviewed 12/14/18 @ 10:06 by Enedina Maldonado) Mother Hypertension Thyroid disorder CVA (cerebral vascular accident) Sister Heart disease Family History: Reports: Heart Disease <Landen Brewer - Last Filed: 10/17/19 17:35> - Family History Maternal Family History: Family History (Last Reviewed 12/14/18 @ 10:06 by Enedina Maldonado) Mother Hypertension Thyroid disorder CVA (cerebral vascular accident) Sister Heart disease Paternal Family History: Family History (Last Reviewed 12/14/18 @ 10:06 by Enedina Maldonado) Mother Hypertension Thyroid disorder CVA (cerebral vascular accident) Sister Heart disease Sibling Family History: Family History (Last Reviewed 12/14/18 @ 10:06 by Enedina Maldonado) Mother Hypertension Thyroid disorder CVA (cerebral vascular accident) Sister Heart disease <Nanci Donato - Last Filed: 10/17/19 20:58> - Allergies and Home Meds Allergies/Adverse Reactions: Allergies Penicillins Allergy (Verified 10/17/19 15:21) WEAKNESS,VISION ISSUES PT STATES MAKES HER WEAK Review of Systems All systems negative except as indicated General: Denies: Chills, Fever Eyes: Denies: Visual changes - bilaterally, Blurred Vision - bilaterally, Diplopia ENT: Denies: Rhinorrhea, Sore throat Cardiovascular: Denies: Chest pain, Palpitations, Heart racing Respiratory: Denies: Dyspnea, Cough, Sputum Gastrointestinal: Denies: Abdominal pain, Nausea, Vomiting, Diarrhea Genitourinary: Denies: Dysuria, Hematuria, Frequency Musculoskeletal: Denies: Myalgias, Arthralgias, Neck pain, Back pain, Swelling, Extremity Pain Skin: Denies: Rash, Abscess, Abrasions, Wounds Neurological: Denies: Headache, Weakness, Parasthesia, Numbness Psych: Denies: Depression, Anxiety, Suicidal thoughts, Suicidal ideations Endocrine: Denies: Polydipsia, Cold intolerance <Landen Brewer - Last Filed: 10/17/19 17:35> Physical Exam Vital Signs/Narrative: Vital Signs Temp Pulse Resp BP Pulse Ox 10/17/19 15:21 97.9 F 102 H 15 143/93 H 98 Inital Vital Signs reviewed: Yes General: Well nourished, Well developed, No Acute Distress Head: Normocephalic, Atraumatic Eyes: Perrl, EOMI ENT: Moist mucous membranes Neck: Supple, Nontender Cardiovascular: Regular rate, Regular rhythm, No murmurs Respiratory: No distress, CTA bilaterally, Chest nontender Abdomen: Soft, Nontender, Nondistended, Normal bowel sounds, No masses Back: Nontender, Normal Inspection Extremities: Nontender, No edema Skin: Normal color, No rash Neurological: Alert, Oriented x3 Psychological: Depressed, Tearful. Negative for: Agitated <Landen Brewer - Last Filed: 10/17/19 17:35> Vital Signs/Narrative: Vital Signs Temp Pulse Resp BP Pulse Ox 10/17/19 17:51 97.8 F 90 18 110/94 H 94 10/17/19 17:17 77 16 126/80 H 100 <Nanci Donato - Last Filed: 10/17/19 20:58> Diagnostic/Tx/Re-eval - Medical Decision Making Patient presents to the emergency department requesting detox from alcohol. Patient is currently intoxicated and is not in withdrawal. Laboratory work-up is essentially unremarkable other than a hemoglobin of 11.0, she has a history of chronic anemia. Her alcohol level is 0.369. The rest of her laboratory work-up is unremarkable. Patient on serial repeat exams remains calm and cooperative. She is resting comfortably. I spoke with Dr. Conley who agrees to admit. Laboratory Results 10/17/19 10/17/19 10/17/19 16:15 16:15 16:15 WBC 7.3 RBC 3.89 L Hgb 11.0 L Hct 33.4 L MCV 85.9 MCH 28.3 MCHC 32.9 RDW Std Deviation 45.3 H RDW Coeff of Rebeca 14.6 Plt Count 286 MPV 9.2 Immature Gran % (Auto) 0.400 Neut % (Auto) 45.3 L Lymph % (Auto) 42.5 H [place] % (Auto) 7.9 Eos % (Auto) 2.7 Baso % (Auto) 1.2 H Absolute Neuts (auto) 3.3 Absolute Lymphs (auto) 3.11 Nucleated RBC % 0 Sodium 137 Potassium 3.8 Chloride 104 Carbon Dioxide 25.0 Anion Gap 8 BUN 17 Creatinine 0.93 Estim Creat Clear Calc 56.94 Est GFR (MDRD) Af Amer 80 Est GFR (MDRD) Non-Af 66 BUN/Creatinine Ratio 18.3 Glucose 104 Calcium 8.5 Total Bilirubin 0.20 AST 79 H ALT 47 Alkaline Phosphatase 102 Total Protein 8.0 Albumin 4.0 Globulin 4.0 Albumin/Globulin Ratio 1.0 Ethyl Alcohol 369.0 H* <Landen Brewer - Last Filed: 10/17/19 17:35> - Medical Decision Making I have personally performed a [id number] assessment of the patient and have reviewed the COLLECTIONS MANAGER/PA note. My mayers findings include 59-year-old female presenting for alcohol detox. Vitals are stable. Patient is intoxicated. Labs show alcohol level of 369. Patient remains hemodynamically stable in the ED. Discussed with hospitalist for admission. <Nanci Donato - Last Filed: 10/17/19 20:58> ED Disposition <Landen Brewer - Last Filed: 10/17/19 17:35> <Nanci Donato - Last Filed: 10/17/19 20:58> - Plan for ED Patient: Disposition: Acute Care Hospital [facility] Diagnosis: Alcohol dependence, ETOH abuse, Elevated ETOH level, COPD (chronic obstructive pulmonary disease), Hypertension
[2019-10-17 16:32] LABS: Absolute Lymphocyte Count 3.11 X10^3/uL (0.83-4.51); Absolute Neutrophil Count 3.3 X10^3/uL (2.0-7.7); Basophil# 0.09 X10^3/uL; Basophil% 1.2 % (0-1); Eosinophils% 2.7 % (0-5); Hematocrit 33.4 % (37-47); Lymphocyte # 3.11 X10^3/ul (4.0); Lymphocyte % 42.5 % (19-41); Mean Corp Hgb Conc 32.9 g/dL (32-36); Mean Corpuscular Hgb 28.3 pg (27.0-32.0); Mean Corpuscular Volume 85.9 fL (81-99); Mean Platelet Vol. 9.2 fl (6.2-12.0); Monocyte# 0.58 X10^3/uL; Monocyte% 7.9 % (0-10); NRBC Flagged by Analyzer 0 % (0-5); Neutrophil % 45.3 % (47-70); Platelet Count 286 K/mm3 (150-450); RBC Distribution Width CV 14.6 % (11.6-14.6); RBC Distribution Width SD 45.3 fl (35.1-43.9); Red Blood Count 3.89 M/mm3 (4.2-5.4); White Blood Count 7.3 K/mm3 (4.4-11.0)
[2019-10-17 16:49] LABS: AST(SGOT) 79 U/L (15-37); Alanine Aminotransfer ALT/SGPT 47 U/L (13-56); Alkaline Phosphatase 102 U/L (45-117); Anion Gap 8 (5-15); BUN 17 mg/dL (7-18); BUN/Creat Ratio 18.3 RATIO (10-20); Calcium,Total 8.5 mg/dL (8.5-10.1); Chloride 104 mmol/L (98-107); Creatinine, Serum 0.93 mg/dL (0.55-1.02); EST Glomerular Filtration Rate 66 mL/min (>60); Est Glom Filt Rate - Afr Amer 80 mL/min (>60); Estimated Creatinine Clearance 56.94 ml/min; Glucose 104 mg/dL (74-106); Potassium 3.8 mmol/L (3.5-5.1); Sodium Level 137 mmol/L (136-145)
[2019-10-17] MEDS: 0.9% Normal Saline 1,000 ML 999 ML IV (17:16)
[2019-10-17 17:17] VITALS: BP 126/80; PULSE 77; RESP 16; O2SAT 100; O2SAT 86
[2019-10-17 17:51] VITALS: BP 110/94; PULSE 90; RESP 18; TEMP 36.6; O2SAT 94
[2019-10-17 18:15] VITALS: BMI 23.8; BMI 23.9
--- NOTE | 2019-10-17 18:15 | PCM.HP.STD ---
History of Present Illness Date of Admission: 10/17/19 Chief Complaint: requesting alcohol detox. The patient is a 59 year old F who has been drinking 1/5 of vodka per day. Patient states that she was sober for years and then started drinking again. Her last drink was yesterday afternoon. Symptoms since then include just agitation and tremulousness. She denies any hallucinations. She presented to the emergency room today requesting detox again. She states that she has been contact with [facility] and she states that [facility] program will be ready to accept her when she is medically stabilized. Patient has been through alcohol withdrawal previously and was hospitalized here in December 2018. [] Past Medical History Past Medical History (Chronic Problems): Chronic Problems COPD (chronic obstructive pulmonary disease) (Chronic) Depression (Chronic) Hypertension (Chronic) ETOH abuse (Chronic) Medical History: Medical History (Last Reviewed 10/17/19 @ 18:[address] Tio Conley, DO) Hepatotoxicity, secondary to ETOH (Resolved) K70.9 Elevated ETOH level (Acute) R78.0 ETOH abuse (Chronic) F10.10 Abnormal mammogram R92.8 Anxiety F41.9 Bipolar 1 disorder F31.9 COPD (chronic obstructive pulmonary disease) J44.9 Insomnia G47.00 Allergies Penicillins Allergy (Verified 10/17/19 15:21) WEAKNESS,VISION ISSUES PT STATES MAKES HER WEAK Home Medications: Ambulatory Orders Medication Instructions Recorded loratadine 10 mg tablet 10 mg PO DAILY PRN 04/04/18 Fluticasone/Vilanterol [Breo 1 puff INHALATION DAILY 07/16/18 Ellipta 100-25 Mcg INH] Albuterol Sulfate [Ventolin Hfa] 2 puff IH Q4H PRN 11/16/18 Mirtazapine 15 mg PO QHS 11/16/18 buPROPion SR [Wellbutrin SR (150mg 150 mg PO BID 11/16/18 tablets)] Dicyclomine HCl [Bentyl] 10 mg PO ACHS 10/17/19 Folic Acid/Vit Bcomp,C/Cu/Zinc 1 tab PO DAILY 10/17/19 [Folbee Plus Cz Tablet] Hydroxyzine HCl 50 mg PO BID 10/17/19 Pantoprazole Sodium [Protonix] 40 mg PO BID 10/17/19 Surgical History: Surgical History (Last Reviewed 10/17/19 @ 18:[address] Tio Conley DO) History of Z98.891 History of hysterectomy Z90.710 Surgical History: hysterectomy, - - , implantation of bladder sling Psychiatric History: No pertinent psych hx FAMILY WELF[employer] SOCIAL WORK PROFESSOR History: No pertinent FAMILY WELF[employer] SOCIAL WORK PROFESSOR history Lives: With Family Smoking Status: Current every day smoker Alcohol: Heavy Drugs: None - *Family History Maternal Family History: Family History (Last Reviewed 10/17/19 @ 18:[address] Tio Conley DO) Mother Hypertension Thyroid disorder CVA (cerebral vascular accident) Sister Heart disease History Items: Hypertension, Stroke, - - Thyroid disease Paternal Family History: Family History (Last Reviewed 10/17/19 @ 18:[address] Tio Conley DO) Mother Hypertension Thyroid disorder CVA (cerebral vascular accident) Sister Heart disease History Items: - - Alcoholism Sibling Family History: Family History (Last Reviewed 10/17/19 @ 18:[address] Tio Conley DO) Mother Hypertension Thyroid disorder CVA (cerebral vascular accident) Sister Heart disease History Items: Heart Disease Review of Systems Constitutional: Denies: Anorexia, Chills, Fever, Night Sweats Eyes: Denies: Blurred vision, Double vision HEENT: Denies: Head Aches, Sinus Congestion, Sinus Drainage Cardiovascular: Denies: Chest Pain, Palpitations Respiratory: Denies: Cough, Shortness of breath at rest, Sputum production Gastrointestinal: Denies: Abdominal Pain, Nausea, Vomiting Genitourinary: Denies: Dysuria Musculoskeletal: Denies: Joint Pain, Joint Tenderness Skin: Denies: Dryness, Jaundice Neurological: Reports: Tremor Psychiatric: Reports: Anxiety, Depression Hematologic/ Lymphatic: Denies: Easy Bruising, Easy Bleeding, Hx of blood clot Comment: All review of systems were negative except as mentioned above in the history of present illness and the other review of systems. VTE Information - Inpt Only VTE Present on Admission: No VTE Mechan Device Prophylaxis: None VTE Pharm Prophylaxis ordered?: No Reason prophylaxis not ordered:: Treatment Not Indicated Patient Problems: Active and Suspected Problems (Last Reviewed 12/14/18 @ 10:06 by Enedina Maldonado) Alcohol dependence (Acute) Elevated ETOH level (Acute) - Physical Exam Vitals/I&O's: Vital Signs Temp Pulse Resp BP Pulse Ox 36.6 C 90 18 110/94 H 94 10/17/19 17:51 10/17/19 17:51 10/17/19 17:51 10/17/19 17:51 10/17/19 17:51 Oxygen Flow Rate (L/min) 3 Oxygen Delivery Method Nasal Cannula Weight: 58.967 kg Body Mass Index (BMI) 22.3 General: Alert, Cooperative, No apparent distress, - - Appears older than stated age. Afebrile. Anxious HEENT: Atraumatic, Normocephalic Oral: Moist Mucosa, No Gingival or Mucosal Lesions/ Ulcerations Neck: No Nodes, Trachea Midline Lungs: Clear to auscultation, Normal air movement, No rhonchi, No wheeze, No rales Cardiovascular: Regular rate, Regular Rhythm, Normal S1, Normal S2, No murmurs Abdomen: Bowel Sounds Present, Soft, Non Tender, Non-Distended, No Hepato-splenomegaly Extremities: No edema, No Calf Tenderness Skin: No rashes, No breakdown Musculoskeletal: No Tenderness to Palpation of Joints or Extremities, No Muscle Wasting Psych/Mental Status: Appropriate, Anxious Laboratory Results 10/17/19 16:15: WBC 7.3, RBC 3.89 L, Hgb 11.0 L, Hct 33.4 L, MCV 85.9, MCH 28.3, MCHC 32.9, RDW Std Deviation 45.3 H, RDW Coeff of Rebeca 14.6, Plt Count 286, MPV 9.2, Immature Gran % (Auto) 0.400, Neut % (Auto) 45.3 L, Lymph % (Auto) 42.5 H, [place] % (Auto) 7.9, Eos % (Auto) 2.7, Baso % (Auto) 1.2 H, Absolute Neuts (auto) 3.3, Absolute Lymphs (auto) 3.11, Nucleated RBC % 0 10/17/19 16:15: Sodium 137, Potassium 3.8, Chloride 104, Carbon Dioxide 25.0, Anion Gap 8, BUN 17, Creatinine 0.93, Estim Creat Clear Calc 56.94, Est GFR (MDRD) Af Amer 80, Est GFR (MDRD) Non-Af 66, BUN/Creatinine Ratio 18.3, Glucose 104, Calcium 8.5, Total Bilirubin 0.20, AST 79 H, ALT 47, Alkaline Phosphatase 102, Total Protein 8.0, Albumin 4.0, Globulin 4.0, Albumin/Globulin Ratio 1.0 10/17/19 16:15: Ethyl Alcohol 369.0 H* Assessment/Plan All Active Problems (Last Reviewed 12/14/18 @ 10:06 by Enedina Maldonado) Alcohol dependence (Acute) YADIRA (acute kidney injury) (Acute) Alcohol withdrawal delirium, acute, hyperactive (Acute) Nausea and vomiting (Acute) Hepatotoxicity, secondary to ETOH (Resolved) Elevated ETOH level (Acute) 1. Acute alcohol withdrawal: Patient's alcohol level was elevated upon arrival though she states her last drink was yesterday afternoon. Suspect her last alcohol consumption was more recent than that. Plan is to start the patient on phenobarbital taper as well as have other agents to help with other somatic complaints during her withdrawal process. Patient states that she is already been established with the [facility] program so she states that they will be ready for her when she is medically ready. I will have case management look into that and verify that that will be the case. 2. Chronic conditions: COPD, depression, anxiety, hypertension: Continue with her home medications 3. Tobacco abuse: Nicotine patch 4. VTE prophylaxis: Low risk and not indicated. Inpatient E&M: 31508 Init Hosp L2
[2019-10-17 18:34] VITALS: BP 132/85; PULSE 85; RESP 16; TEMP 36.2; O2SAT 93
[2019-10-17] MEDS: Albuterol 2.5 MG/3 ML VIAL.NEB. INHALATION (19:40)
[2019-10-17] MEDS: Budesonide Respules 0.5 MG/2 ML AMPUL.NEB. INHALATION (19:40)
[2019-10-17 19:41] VITALS: PULSE 88; RESP 18; O2SAT 96
[2019-10-17 20:29] VITALS: BP 126/70; PULSE 99; RESP 18; TEMP 36.6; O2SAT 95
[2019-10-17] MEDS: Phenobarbital 32.4 MG Tablet PO ×2 (20:34→22:54)
[2019-10-17] MEDS: Dicyclomine 10 MG Capsule PO (20:35)
[2019-10-17] MEDS: Pantoprazole Sodium 40 MG Tablet PO (20:36)
[2019-10-17] MEDS: Mirtazapine 15 MG Tablet PO (20:36)
[2019-10-17] MEDS: hydrOXYzine PAM 25 MG Capsule 50 MG PO (20:36)
[2019-10-17] MEDS: buPROPion (SR) 150 MG Tablet.SA PO (20:36)
[2019-10-17 21:01] LABS: Bedside Glucose 109 mg/dL (70-110)
[2019-10-18] VITALS (9 sets, daily range): BP systolic 131–157; BP diastolic 73–84; PULSE 82–103; RESP 16–18; TEMP 36.5–37.1; O2SAT 92–97
[2019-10-18] MEDS: Phenobarbital 32.4 MG Tablet PO ×6 (02:28→22:21)
[2019-10-18] MEDS: hydrOXYzine PAM 25 MG Capsule 50 MG PO ×3 (05:36→22:24)
[2019-10-18] MEDS: Dicyclomine 10 MG Capsule PO ×4 (05:38→22:21)
[2019-10-18 06:01] LABS: Bedside Glucose 87 mg/dL (70-110)
[2019-10-18] MEDS: Budesonide Respules 0.5 MG/2 ML AMPUL.NEB. INHALATION ×2 (06:56→19:17)
[2019-10-18] MEDS: Albuterol 2.5 MG/3 ML VIAL.NEB. INHALATION ×3 (06:57→19:17)
[2019-10-18] MEDS: Multivitamins,Therapeutic Tablet 1 TABLET PO (09:00)
[2019-10-18] MEDS: Folic Acid 1 MG Tablet PO (09:00)
[2019-10-18] MEDS: Pantoprazole Sodium 40 MG Tablet PO ×2 (09:01→22:21)
[2019-10-18] MEDS: buPROPion (SR) 150 MG Tablet.SA PO ×2 (09:01→22:21)
[2019-10-18] MEDS: Thiamine Hydrochloride 100 MG Tablet PO (09:01)
--- NOTE | 2019-10-18 09:44 | CASEMGMT ---
Social Work Pt admitted for alcohol withdrawal. DWAYNE spoke with Trinity at [facility]. Trinity states pt is known to her and [facility] sent pt to [facility] for detox and plan is for [facility] residential program at time of discharge. ASYA Grider
[2019-10-18] MEDS: Acetaminophen 325 MG Tablet 650 MG PO (10:32)
--- NOTE | 2019-10-18 10:46 | ADDICTION ---
This writer technical publications met with patient in her room. She stated that she engaged in medical withdrawal management yesterday (10/18/2019) with the intention of admitting into [facility]idential treatment following discharge from [facility]. This writer technical publications obtained LEEANN for [facility] [place] and patient's son who will likely provide transportation. This writer technical publications confirmed that client has been working with [facility]idential Admission's Team and [facility] upon discharge from [facility], likely on Monday (10/21/2019). This writer technical publications will fax client's full biopsychosocial assessment and LEEANN to hospital social science manager, April. Patient's ASAM is as follows: ASAM: LOC Recommended 4.0 Medically Managed Intensive Inpatient Services Dimension1: Acute Intoxication and/or Withdrawal Potential Patient reports last date of use as: 10/17/2019. She presented intoxicated to Emergency department prior to being admitting into medical withdrawal management. She reports ongoing symptoms including agitation, shakiness, lack of appetite and physical discomfort. She reports history of alcohol withdrawal and past detoxification efforts. Dimension2: Biomedical Conditions and Complications Patient has COPD, Hypertension. Appears to be experiencing physical symptoms of withdrawal including shakiness and physical discomfort. Dimension3: Emotional, Behavioral and/or Cognitive Conditions and Complications Patient reports feelings of agitation and distress. Patient notes that she has a history of depression and is feeling depressed at this time. Patient reports limited control over behaviors related to use. She appears to be oriented x4 and presents with no significant cognitive concerns. Dimension4: Readiness to Change Patient appears to be in the preparation stage of change as evidenced by her identification of problem behaviors with planned intention to engage in ongoing, residential treatment to assist with behavioral modification. Patient is scheduled to engage in Residential treatment immediately following discharge from [facility]. Dimension5: Relapse, Continued use or Continued Problem Potential Patient is at a high risk of relapse. She reports a history of multiple relapses following treatment/withdrawal management. She identified that she will continue to use alcohol if she does not engage in treatment. Dimension6: Recovery/ Living Environment Patient reports limited social/natural supports. Patient identified her son as her primary sober support. Patient reports that she is prepared to engage in treatment following d/c from [facility] and will attend mutual aid meetings while in Residential treatment.
--- NOTE | 2019-10-18 13:29 | PN_ITS ---
Patient Problems: Active and Suspected Problems (Last Reviewed 10/17/19 @ 18:[address] Tio Conley, DO) Alcohol dependence (Acute) Elevated ETOH level (Acute) Subjective: Patient seen and examined. Appears anxious. Denies significant withdrawal symptoms currently. Plan for residential treatment at discharge, 10/21/2019. - Physical Exam Vitals/I&O's: Vital Signs Temp Pulse Resp BP Pulse Ox 98.7 F 94 18 134/73 H 94 10/18/19 12:50 10/18/19 12:50 10/18/19 12:50 10/18/19 12:50 10/18/19 12:50 Oxygen Flow Rate (L/min) 2 Oxygen Delivery Method Room Air Weight: 139 lb 1.787 oz Body Mass Index (BMI) 23.8 Intake and Output for Last 24 Hours 10/16/19 10/17/19 10/18/19 23:59 23:59 23:59 Intake Total 1000 / 1200 760 / 760 Balance 1000 / 1200 760 / 760 General: Alert, Oriented x3, Cooperative HEENT: Atraumatic, PERRLA, EOMI, Normocephalic Neck: Supple, No JVD, Negative Carotid Bruits Lungs: Clear to auscultation, Normal air movement Cardiovascular: Regular rate, Regular Rhythm, Normal S1, Normal S2, No murmurs Abdomen: Bowel Sounds Present, Soft, Non Tender, Non-Distended Extremities: No clubbing, No cyanosis, No edema, Capillary Refill Less than 3 Seconds Skin: No rashes, No breakdown Musculoskeletal: No Tenderness to Palpation of Joints or Extremities Neurological: Cranial nerves II-XII grossly intact, Neuro grossly intact Psych/Mental Status: Appropriate, Anxious Laboratory Results 10/17/19 16:15: WBC 7.3, RBC 3.89 L, Hgb 11.0 L, Hct 33.4 L, MCV 85.9, MCH 28.3, MCHC 32.9, RDW Std Deviation 45.3 H, RDW Coeff of Rebeca 14.6, Plt Count 286, MPV 9.2, Immature Gran % (Auto) 0.400, Neut % (Auto) 45.3 L, Lymph % (Auto) 42.5 H, [place] % (Auto) 7.9, Eos % (Auto) 2.7, Baso % (Auto) 1.2 H, Absolute Neuts (auto) 3.3, Absolute Lymphs (auto) 3.11, Nucleated RBC % 0 10/17/19 16:15: Sodium 137, Potassium 3.8, Chloride 104, Carbon Dioxide 25.0, Anion Gap 8, BUN 17, Creatinine 0.93, Estim Creat Clear Calc 56.94, Est GFR ( MDRD) Af Amer 80, Est GFR (MDRD) Non-Af 66, BUN/Creatinine Ratio 18.3, Glucose 104, Calcium 8.5, Total Bilirubin 0.20, AST 79 H, ALT 47, Alkaline Phosphatase 102, Total Protein 8.0, Albumin 4.0, Globulin 4.0, Albumin/Globulin Ratio 1.0 10/17/19 16:15: Ethyl Alcohol 369.0 H* 10/17/19 20:56: POC Glucose 109 10/18/19 05:51: POC Glucose 87 Current Medications Acetaminophen (Tylenol) 650 mg PO Q6H PRN PRN PRN Reason: Pain Score 1-10/Temp > 100.7 F Last Admin: 10/18/19 10:32 Dose: 650 mg Documented by: Albuterol Sulfate (Ventolin Aerosols) 2.5 mg INHALATION Q4H PRN PRN PRN Reason: SOB &/OR WHEEZING Albuterol Sulfate (Ventolin Aerosols) 2.5 mg INHALATION Q6HWA.RT [facility] Last Admin: 10/18/19 06:57 Dose: 2.5 mg Documented by: Budesonide (Pulmicort Aerosol) 0.5 mg INHALATION Q12H.RT [facility] Last Admin: 10/18/19 06:56 Dose: 0.5 mg Documented by: Bupropion HCl (Wellbutrin Sr (150mg Tablets)) 150 mg PO BID [facility] Last Admin: 10/18/19 09:01 Dose: 150 mg Documented by: Dicyclomine HCl (Bentyl) 10 mg PO ACHS [facility] Last Admin: 10/18/19 11:56 Dose: 10 mg Documented by: Folic Acid (Folic Acid) 1 mg PO DAILY@0800 [facility] Last Admin: 10/18/19 09:00 Dose: 1 mg Documented by: Hydroxyzine Pamoate (Vistaril Pamoate Capsule) 50 mg PO Q4H PRN PRN PRN Reason: mild anxiety Last Admin: 10/18/19 10:01 Dose: 50 mg Documented by: Loperamide HCl (Imodium) 2 mg PO Q4H PRN PRN PRN Reason: LOOSE STOOLS Mirtazapine (Remeron) 15 mg PO QHS [facility] Last Admin: 10/17/19 20:36 Dose: 15 mg Documented by: Multivitamins (Multivitamin) 1 tablet PO DAILY@0800 [facility] Last Admin: 10/18/19 09:00 Dose: 1 tablet Documented by: Nicotine (Nicoderm Cq (Pbkc)) 21 mg TRANSDERM. DAILY [facility] Last Admin: 10/18/19 09:01 Dose: Not Given Documented by: Ondansetron HCl (Zofran) 8 mg PO Q8H PRN PRN PRN Reason: NAUSEA Pantoprazole Sodium (Protonix) 40 mg PO BID [facility] Last Admin: 10/18/19 09:01 Dose: 40 mg Documented by: Phenobarbital (Phenobarbital) 97.2 mg PO Q4H [facility]; Taper Stop: 10/21/19 23:44 Last Admin: 10/18/19 10:32 Dose: 97.2 mg Documented by: Sodium Chloride () 10 - 40 ml IV UD PRN PRN Reason: SALINE FLUSH Thiamine HCl (Vitamin B1) 100 mg PO DAILYCM [facility] Last Admin: 10/18/19 09:01 Dose: 100 mg Documented by: Medical Necessity - Tobacco Use Smoking Status: Current every day smoker Tobacco Use: Cigarettes Assessment/Plan All Active Problems (Last Reviewed 10/17/19 @ 18:[address] Tio Conley, DO) Alcohol dependence (Acute) YADIRA (acute kidney injury) (Acute) Alcohol withdrawal delirium, acute, hyperactive (Acute) Nausea and vomiting (Acute) Hepatotoxicity, secondary to ETOH (Resolved) Elevated ETOH level (Acute) 1. Alcohol withdrawal on chronic alcohol abuse-phenobarb taper. [facility] protocol. [facility] following, plan for residential treatment at discharge. 2. Chronic COPD-no acute exacerbation. 3. Hypertension-no longer on regimen. Previously on lisinopril. Continue to monitor. 4. Anxiety/depression-continue Wellbutrin, hydroxyzine regimen. 5. RLS-continue mirtazapine regimen. 6. Tobacco dependence-encouraged cessation. DVT prophylaxis-not indicated, low risk This patient was seen by DALE Palomino under the supervision of Dr. De Leon.
[2019-10-18 15:14] LABS: Bacteria 0 SEEN /hpf (None Seen); Mucous, Urine 0 SEEN /hpf (<or=2+)
[2019-10-18 15:15] LABS: Color, Urine Yellow (Yellow); Glucose, Dipstick Normal (Normal); Ketone-Dipstick 5 mg/dl (Negative); Leukocyte Esterase-Dipstick Negative /ul (Negative); Nitrite-Dipstick Negative (Negative); Occult Blood-Urine 25 /ul (Negative); Protein-Dipstick 30 mg/dl (Negative); Urine Bilirubin Dipstick Negative (Negative); Urine Clarity Clear (Clear); Urine Urobilinogen Normal (Normal); Urine pH 6.5 (5.0 - 8.0)
[2019-10-18 15:24] LABS: Squamous Epithelial Cells - UA 0-5 SEEN /hpf (5-10)
[2019-10-18 15:26] LABS: Hyaline Cast 0-5 SEEN /lpf (0-5)
[2019-10-18 15:27] LABS: Red Blood Cells-Urine 0-5 SEEN /hpf (0-5); White Blood Cells 0-5 SEEN /hpf (0-5)
[2019-10-18 15:34] LABS: Amphetamine Urine VISTA NEGATIVE (<1000 ng/mL); Barbiturate Urine VISTA POSITIVE (< 200 ng/mL); Benzodiazepine Urine VISTA NEGATIVE (< 200 ng/mL); Cocaine Urine VISTA NEGATIVE (< 300 ng/mL); Ecstacy Urine VISTA POSITIVE (< 500 ng/mL); Methadone Urine VISTA NEGATIVE (< 300 ng/mL); PCP Urine VISTA NEGATIVE (< 25 ng/mL); THC Urine VISTA NEGATIVE (< 50 ng/mL); Vista UDS pH Range 6
[2019-10-18 16:25] LABS: Bedside Glucose 106 mg/dL (70-110)
[2019-10-18 16:41] LABS: Bedside Glucose 90 mg/dL (70-110)
[2019-10-18] MEDS: Mirtazapine 15 MG Tablet PO (22:21)
[2019-10-19] VITALS (7 sets, daily range): BP systolic 148–167; BP diastolic 91–105; PULSE 78–101; RESP 16–18; TEMP 36.6–36.9; O2SAT 94–99
[2019-10-19] MEDS: Phenobarbital 32.4 MG Tablet PO ×6 (03:00→22:45)
[2019-10-19] MEDS: Dicyclomine 10 MG Capsule PO ×4 (06:29→22:44)
[2019-10-19 06:41] LABS: Bedside Glucose 93 mg/dL (70-110)
--- NOTE | 2019-10-19 11:07 | PCM.PROGNOTE ---
Patient Problems: Active and Suspected Problems (Last Reviewed 10/17/19 @ 18:[address] Toi Conley, DO) Alcohol dependence (Acute) Elevated ETOH level (Acute) Subjective: Patient seen and examined. States she is very depressed. Denies suicidal or homicidal ideations. Denies significant withdrawal symptoms. - Physical Exam Vitals/I&O's: Vital Signs Temp Pulse Resp BP Pulse Ox 98.1 F 78 18 148/95 H 94 10/19/19 03:02 10/19/19 03:02 10/19/19 03:02 10/19/19 03:02 10/19/19 03:02 Oxygen Flow Rate (L/min) 2 Oxygen Delivery Method Room Air Weight: 139 lb 1.787 oz Body Mass Index (BMI) 23.8 Intake and Output for Last 24 Hours 10/17/19 10/18/19 10/19/19 23:59 23:59 23:59 Intake Total 1000 / 1200 1120 / 1420 540 / 540 Output Total 300 / 300 Balance 1000 / 1200 820 / 1120 540 / 540 General: Alert, Oriented x3, Cooperative HEENT: Atraumatic, PERRLA, EOMI, Normocephalic Neck: Supple, No JVD, Negative Carotid Bruits Lungs: Clear to auscultation, Normal air movement Cardiovascular: Regular rate, Regular Rhythm, Normal S1, Normal S2, No murmurs Abdomen: Bowel Sounds Present, Soft, Non Tender, Non-Distended Extremities: No clubbing, No cyanosis, No edema, Capillary Refill Less than 3 Seconds Skin: No rashes, No breakdown Musculoskeletal: No Tenderness to Palpation of Joints or Extremities Neurological: Cranial nerves II-XII grossly intact, Neuro grossly intact Psych/Mental Status: Appropriate, Anxious Laboratory Results 10/17/19 15:02: Urine Opiates Screen NEGATIVE, Urine Methadone Screen NEGATIVE, Ur Barbiturates Screen POSITIVE H, Ur Phencyclidine Scrn NEGATIVE, Ur Amphetamines Screen NEGATIVE, U Methamphetamin-MDMA POSITIVE H, U Benzodiazepines Scrn NEGATIVE, Urine Cocaine Screen NEGATIVE, U Cannabinoids Screen NEGATIVE, Ur Drug Screen Comment 10/17/19 15:02: Urine Color Yellow, Urine Clarity Clear, Urine pH 6.5, Ur Specific [place] 1.010, Urine Protein 30 H, Urine Glucose (UA) Normal, Urine Ketones 5 H, Urine Occult Blood 25 H, Urine Nitrite Negative, Urine Bilirubin Negative, Urine Urobilinogen Normal, Ur Leukocyte Esterase Negative, Urine RBC 0-5 SEEN, Urine WBC 0-5 SEEN, Ur Squamous Epith Cells 0-5 SEEN, Urine Bacteria 0 SEEN, Hyaline Casts 0-5 SEEN, Urine Mucus 0 SEEN 10/18/19 11:51: POC Glucose 106 10/18/19 16:26: POC Glucose 90 10/19/19 06:37: POC Glucose 93 Current Medications Acetaminophen (Tylenol) 650 mg PO Q6H PRN PRN PRN Reason: Pain Score 1-10/Temp > 100.7 F Last Admin: 10/18/19 10:32 Dose: 650 mg Documented by: Albuterol Sulfate (Ventolin Aerosols) 2.5 mg INHALATION Q4H PRN PRN PRN Reason: SOB &/OR WHEEZING Albuterol Sulfate (Ventolin Aerosols) 2.5 mg INHALATION Q6HWA.RT [facility] Last Admin: 10/18/19 19:17 Dose: 2.5 mg Documented by: Budesonide (Pulmicort Aerosol) 0.5 mg INHALATION Q12H.RT [facility] Last Admin: 10/18/19 19:17 Dose: 0.5 mg Documented by: Bupropion HCl (Wellbutrin Sr (150mg Tablets)) 150 mg PO BID [facility] Last Admin: 10/18/19 22:21 Dose: 150 mg Documented by: Dicyclomine HCl (Bentyl) 10 mg PO ACHS [facility] Last Admin: 10/19/19 06:29 Dose: 10 mg Documented by: Folic Acid (Folic Acid) 1 mg PO DAILY@0800 [facility] Last Admin: 10/18/19 09:00 Dose: 1 mg Documented by: Hydroxyzine Pamoate (Vistaril Pamoate Capsule) 50 mg PO Q4H PRN PRN PRN Reason: mild anxiety Last Admin: 10/18/19 22:24 Dose: 50 mg Documented by: Loperamide HCl (Imodium) 2 mg PO Q4H PRN PRN PRN Reason: LOOSE STOOLS Mirtazapine (Remeron) 15 mg PO QHS [facility] Last Admin: 10/18/19 22:21 Dose: 15 mg Documented by: Multivitamins (Multivitamin) 1 tablet PO DAILY@0800 [facility] Last Admin: 10/18/19 09:00 Dose: 1 tablet Documented by: Nicotine (Nicoderm Cq (Pbkc)) 21 mg TRANSDERM. DAILY [facility] Last Admin: 10/18/19 09:01 Dose: Not Given Documented by: Ondansetron HCl (Zofran) 8 mg PO Q8H PRN PRN PRN Reason: NAUSEA Pantoprazole Sodium (Protonix) 40 mg PO BID [facility] Last Admin: 10/18/19 22:21 Dose: 40 mg Documented by: Phenobarbital (Phenobarbital) 64.8 mg PO Q4H [facility]; Taper Stop: 10/21/19 23:44 Last Admin: 10/19/19 06:29 Dose: 64.8 mg Documented by: Sodium Chloride () 10 - 40 ml IV UD PRN PRN Reason: SALINE FLUSH Thiamine HCl (Vitamin B1) 100 mg PO DAILYCM [facility] Last Admin: 10/18/19 09:01 Dose: 100 mg Documented by: Medical Necessity - Tobacco Use Smoking Status: Current every day smoker Tobacco Use: Cigarettes Assessment/Plan All Active Problems (Last Reviewed 10/17/19 @ 18:[address] Tio Conley, DO) Alcohol dependence (Acute) YADIRA (acute kidney injury) (Acute) Alcohol withdrawal delirium, acute, hyperactive (Acute) Nausea and vomiting (Acute) Hepatotoxicity, secondary to ETOH (Resolved) Elevated ETOH level (Acute) 1. Alcohol withdrawal on chronic alcohol abuse-phenobarb taper. [facility] protocol. [facility] following, plan for residential treatment at discharge. 2. Chronic COPD-no acute exacerbation. 3. Hypertension-previously on lisinopril, stopped taking. Will initiate lisinopril 5 mg daily. 4. Anxiety/depression/questionable bipolar?-continue Wellbutrin, hydroxyzine regimen. Patient reports she has been diagnosed with bipolar in the past however took herself off meds. States she was diagnosed when she was going through active withdrawal and unsure if she truly has bipolar. Recommend formal evaluation by psychiatry following discharge. 5. RLS-continue mirtazapine regimen. 6. Tobacco dependence-encouraged cessation. DVT prophylaxis-not indicated, low risk This patient was seen by DALE Palomino under the supervision of Dr. De Leon.
[2019-10-19] MEDS: Multivitamins,Therapeutic Tablet 1 TABLET PO (11:29)
[2019-10-19] MEDS: Pantoprazole Sodium 40 MG Tablet PO ×2 (11:29→22:45)
[2019-10-19] MEDS: Folic Acid 1 MG Tablet PO (11:29)
[2019-10-19] MEDS: Thiamine Hydrochloride 100 MG Tablet PO (11:30)
[2019-10-19] MEDS: buPROPion (SR) 150 MG Tablet.SA PO ×2 (11:30→22:46)
[2019-10-19] MEDS: Lisinopril 5 MG Tablet PO (11:40)
[2019-10-19] MEDS: hydrOXYzine PAM 25 MG Capsule 50 MG PO ×3 (11:40→19:32)
[2019-10-19] MEDS: Albuterol 2.5 MG/3 ML VIAL.NEB. INHALATION ×2 (12:44→21:20)
[2019-10-19] MEDS: Loperamide 2 MG Capsule PO (15:44)
[2019-10-19] MEDS: Budesonide Respules 0.5 MG/2 ML AMPUL.NEB. INHALATION (21:20)
[2019-10-19] MEDS: Mirtazapine 15 MG Tablet PO (22:45)
[2019-10-20] VITALS (7 sets, daily range): BP systolic 106–147; BP diastolic 61–90; PULSE 83–100; RESP 16–20; TEMP 36.4–36.8; O2SAT 95–100
[2019-10-20] MEDS: Phenobarbital 32.4 MG Tablet PO ×4 (02:18→18:46)
[2019-10-20] MEDS: hydrOXYzine PAM 25 MG Capsule 50 MG PO ×4 (02:18→22:01)
[2019-10-20] MEDS: Dicyclomine 10 MG Capsule PO ×4 (07:17→21:57)
[2019-10-20] MEDS: Folic Acid 1 MG Tablet PO (08:18)
[2019-10-20] MEDS: Thiamine Hydrochloride 100 MG Tablet PO (08:18)
[2019-10-20] MEDS: Multivitamins,Therapeutic Tablet 1 TABLET PO (08:18)
[2019-10-20] MEDS: Pantoprazole Sodium 40 MG Tablet PO ×2 (08:20→21:57)
[2019-10-20] MEDS: buPROPion (SR) 150 MG Tablet.SA PO ×2 (08:20→21:57)
[2019-10-20] MEDS: Lisinopril 5 MG Tablet PO (08:25)
--- NOTE | 2019-10-20 10:50 | NURSING ---
per Dr. De Leon, pt is authorized to walk the halls.
--- NOTE | 2019-10-20 11:55 | PN_ITS ---
Patient Problems: Active and Suspected Problems (Last Reviewed 10/17/19 @ 18:[address] Tio Conley, DO) Alcohol dependence (Acute) Elevated ETOH level (Acute) Subjective: Patient seen and examined. Very anxious, requesting her phone which is locked with her belongings. States she would like to go home to gather her things prior to admission to residential treatment facility. Patient talking continuously, scattered thoughts. Patient complains of left facial swelling. Denies pain, no redness noted. Denies dental pain or sinus drainage. - Physical Exam Vitals/I&O's: Vital Signs Temp Pulse Resp BP Pulse Ox 97.8 F 84 16 120/77 95 10/20/19 08:20 10/20/19 08:20 10/20/19 08:20 10/20/19 08:20 10/20/19 08:20 Oxygen Flow Rate (L/min) 2 Oxygen Delivery Method Room Air Weight: 139 lb 1.787 oz Body Mass Index (BMI) 23.8 Intake and Output for Last 24 Hours 10/18/19 10/19/19 10/20/19 23:59 23:59 23:59 Intake Total 1120 / 1420 540 / 540 Output Total 300 / 300 Balance 820 / 1120 540 / 540 General: Alert, Oriented x3, Cooperative HEENT: Atraumatic, PERRLA, EOMI, Normocephalic Neck: Supple, No JVD, Negative Carotid Bruits Lungs: Clear to auscultation, Normal air movement Cardiovascular: Regular rate, Regular Rhythm, Normal S1, Normal S2, No murmurs Abdomen: Bowel Sounds Present, Soft, Non Tender, Non-Distended Extremities: No clubbing, No cyanosis, No edema, Capillary Refill Less than 3 Seconds Skin: No rashes, No breakdown Musculoskeletal: No Tenderness to Palpation of Joints or Extremities Neurological: Cranial nerves II-XII grossly intact, Neuro grossly intact Psych/Mental Status: Anxious, Impulsive, Irrational Behavior Current Medications Acetaminophen (Tylenol) 650 mg PO Q6H PRN PRN PRN Reason: Pain Score 1-10/Temp > 100.7 F Last Admin: 10/18/19 10:32 Dose: 650 mg Documented by: Albuterol Sulfate (Ventolin Aerosols) 2.5 mg INHALATION Q4H PRN PRN PRN Reason: SOB &/OR WHEEZING Albuterol Sulfate (Ventolin Aerosols) 2.5 mg INHALATION Q6HWA.RT [facility] Last Admin: 10/20/19 07:50 Dose: Not Given Documented by: Budesonide (Pulmicort Aerosol) 0.5 mg INHALATION Q12H.RT [facility] Last Admin: 10/20/19 07:50 Dose: Not Given Documented by: Bupropion HCl (Wellbutrin Sr (150mg Tablets)) 150 mg PO BID [facility] Last Admin: 10/20/19 08:20 Dose: 150 mg Documented by: Dicyclomine HCl (Bentyl) 10 mg PO ACHS [facility] Last Admin: 10/20/19 11:13 Dose: 10 mg Documented by: Folic Acid (Folic Acid) 1 mg PO DAILY@0800 [facility] Last Admin: 10/20/19 08:18 Dose: 1 mg Documented by: Hydroxyzine Pamoate (Vistaril Pamoate Capsule) 50 mg PO Q4H PRN PRN PRN Reason: mild anxiety Last Admin: 10/20/19 09:15 Dose: 50 mg Documented by: Lisinopril (Zestril) 5 mg PO DAILY [facility] Last Admin: 10/20/19 08:25 Dose: 5 mg Documented by: Loperamide HCl (Imodium) 2 mg PO Q4H PRN PRN PRN Reason: LOOSE STOOLS Last Admin: 10/19/19 15:44 Dose: 2 mg Documented by: Mirtazapine (Remeron) 15 mg PO QHS [facility] Last Admin: 10/19/19 22:45 Dose: 15 mg Documented by: Multivitamins (Multivitamin) 1 tablet PO DAILY@0800 [facility] Last Admin: 10/20/19 08:18 Dose: 1 tablet Documented by: Nicotine (Nicoderm Cq (Pbkc)) 21 mg TRANSDERM. DAILY [facility] Last Admin: 10/20/19 08:26 Dose: Not Given Documented by: Ondansetron HCl (Zofran) 8 mg PO Q8H PRN PRN PRN Reason: NAUSEA Pantoprazole Sodium (Protonix) 40 mg PO BID [facility] Last Admin: 10/20/19 08:20 Dose: 40 mg Documented by: Phenobarbital (Phenobarbital) 64.8 mg PO Q6H [facility]; Taper Stop: 10/21/19 23:44 Last Admin: 10/20/19 07:17 Dose: 64.8 mg Documented by: Sodium Chloride () 10 - 40 ml IV UD PRN PRN Reason: SALINE FLUSH Thiamine HCl (Vitamin B1) 100 mg PO DAILYCM [facility] Last Admin: 10/20/19 08:18 Dose: 100 mg Documented by: Medical Necessity - Tobacco Use Smoking Status: Current every day smoker Tobacco Use: Cigarettes Assessment/Plan All Active Problems (Last Reviewed 10/17/19 @ 18:[address] Tio Conley, DO) Alcohol dependence (Acute) YADIRA (acute kidney injury) (Acute) Alcohol withdrawal delirium, acute, hyperactive (Acute) Nausea and vomiting (Acute) Hepatotoxicity, secondary to ETOH (Resolved) Elevated ETOH level (Acute) 1. Alcohol withdrawal on chronic alcohol abuse-phenobarb taper. [facility] protocol. [facility] following, plan for residential treatment at discharge. 2. Chronic COPD-no acute exacerbation. 3. Hypertension-previously on lisinopril, stopped taking. Will initiate lisinopril 5 mg daily. 4. Anxiety/depression/questionable bipolar?-continue Wellbutrin, hydroxyzine regimen. Patient reports she has been diagnosed with bipolar in the past however took herself off meds. States she was diagnosed when she was going through active withdrawal and unsure if she truly has bipolar. Recommend formal evaluation by psychiatry following discharge. 5. RLS-continue mirtazapine regimen. 6. Tobacco dependence-encouraged cessation. DVT prophylaxis-not indicated, low risk This patient was seen by DALE Palomino under the supervision of Dr. De Leon.
[2019-10-20] MEDS: Albuterol 2.5 MG/3 ML VIAL.NEB. INHALATION ×2 (13:12→19:38)
[2019-10-20] MEDS: Budesonide Respules 0.5 MG/2 ML AMPUL.NEB. INHALATION (19:38)
[2019-10-20] MEDS: Mirtazapine 15 MG Tablet PO (21:57)
[2019-10-20] MEDS: Menthol/Lanolin/Calamine/Znox 113 GM Tube 1 APPLIC TOPICAL (21:59)
[2019-10-21] MEDS: Phenobarbital 32.4 MG Tablet PO ×2 (01:06→06:49)
[2019-10-21 01:09] VITALS: BP 96/54; PULSE 86; RESP 16; TEMP 37; O2SAT 98
[2019-10-21] MEDS: Dicyclomine 10 MG Capsule PO (06:49)
[2019-10-21] MEDS: hydrOXYzine PAM 25 MG Capsule 50 MG PO (06:51)
[2019-10-21 06:54] VITALS: BP 136/78; PULSE 89; RESP 18; TEMP 36.8; O2SAT 98
[2019-10-21 07:04] VITALS: PULSE 92; RESP 18; O2SAT 96
[2019-10-21] MEDS: Budesonide Respules 0.5 MG/2 ML AMPUL.NEB. INHALATION (07:04)
[2019-10-21] MEDS: Albuterol 2.5 MG/3 ML VIAL.NEB. INHALATION (07:04)
[2019-10-21] MEDS: Folic Acid 1 MG Tablet PO (08:23)
[2019-10-21] MEDS: Thiamine Hydrochloride 100 MG Tablet PO (08:23)
[2019-10-21] MEDS: Multivitamins,Therapeutic Tablet 1 TABLET PO (08:23)
[2019-10-21] MEDS: buPROPion (SR) 150 MG Tablet.SA PO (08:24)
[2019-10-21] MEDS: Pantoprazole Sodium 40 MG Tablet PO (08:24)
--- NOTE | 2019-10-21 08:24 | DCINST_ITS ---
- Discharge Diagnoses Current Active Problems: Current Active and Chronic Problems COPD (chronic obstructive pulmonary disease) (Chronic) Hypertension (Chronic) Alcohol dependence (Acute) Elevated ETOH level (Acute) ETOH abuse (Chronic) You will use the following diet at home:: No restrictions Discharge Activity: Return to Normal Activity Allergies/Adverse Reactions: Allergies Penicillins Allergy (Verified 10/17/19 15:21) WEAKNESS,VISION ISSUES PT STATES MAKES HER WEAK Medications to take at Discharge loratadine 10 mg tablet 10 mg PO DAILY PRN 04/04/18 Fluticasone/Vilanterol [Breo Ellipta 100-25 Mcg INH] 1 puff INHALATION DAILY 07/16/18 Albuterol Sulfate [Ventolin Hfa] 2 puff IH Q4H PRN 11/16/18 Mirtazapine 15 mg PO QHS 11/16/18 buPROPion SR [Wellbutrin SR (150mg tablets)] 150 mg PO BID 11/16/18 Dicyclomine HCl [Bentyl] 10 mg PO ACHS 10/17/19 Folic Acid/Vit Bcomp,C/Cu/Zinc [Folbee Plus Cz Tablet] 1 tab PO DAILY 10/17/19 Hydroxyzine HCl 50 mg PO BID 10/17/19 Pantoprazole Sodium [Protonix] 40 mg PO BID 10/17/19 Primary Care Physician: Kellie Delarosa DO [Primary Care Provider] - Please follow up with your Primary Care Physician in: 1 Week Test Results: Test results from this visit will be discussed in further detail at your follow- up appointment, if applicable. Please Follow Up With: EIGHTY,ONE When: As scheduled Proposed Discharge Date: 10/21/19
[2019-10-21 09:09] VITALS: BP 154/91; PULSE 90; RESP 20; TEMP 36.1; O2SAT 96
--- NOTE | 2019-10-21 09:12 | PCM.DC.SUM ---
<Kirsten Clifton - Last Filed: 10/21/19 10:16> Discharge Date and Diagnosis Date of Admission: 10/17/19 Date of Discharge: 10/21/19 - Primary Discharge Diagnosis Active and Suspected Problems (Last Reviewed 10/17/19 @ 18:[address] Tio Conley, DO) 1. Alcohol withdrawal on chronic alcohol abuse 2. Chronic COPD 3. Hypertension 4. Anxiety/depression/questionable bipolar 5. RLS 6. Tobacco dependence - Secondary Discharge Diagnosis Chronic Problems COPD (chronic obstructive pulmonary disease) (Chronic) Depression (Chronic) Hypertension (Chronic) ETOH abuse (Chronic) Hospital Course and Treatment Operations: None Procedures: None Summary of Care Provided: The patient is a 59 year old F admitted 10/17/2019 due to alcohol withdrawal. 1. Alcohol withdrawal on chronic alcohol abuse-phenobarb taper during admission. [facility] protocol. [facility] following, plan for residential treatment at discharge. Patient states she is going home to gather her things and then will report to [facility] for residential treatment. 2. Chronic COPD-no acute exacerbation. 3. Hypertension-previously on lisinopril, blood pressure fluctuating systolic 90-160. Will hold off on initiating BP regimen given fluctuating BP and patient with high anxiety during admission. If blood pressure remains above 130 on outpatient basis, recommend initiating lisinopril 5mg daily. 4. Anxiety/depression/questionable bipolar?-continue Wellbutrin, hydroxyzine regimen. Patient reports she has been diagnosed with bipolar in the past however took herself off meds. States she was diagnosed when she was going through active withdrawal and unsure if she truly has bipolar. Recommend formal evaluation by psychiatry following discharge. 5. RLS-continue mirtazapine regimen. 6. Tobacco dependence-encouraged cessation. General: Alert, Oriented x3, Cooperative HEENT: Atraumatic, PERRLA, EOMI, Normocephalic Neck: Supple, No JVD, Negative Carotid Bruits Lungs: Clear to auscultation, Normal air movement Cardiovascular: Regular rate, Regular Rhythm, Normal S1, Normal S2, No murmurs Abdomen: Bowel Sounds Present, Soft, Non Tender, Non-Distended Extremities: No clubbing, No cyanosis, No edema, Capillary Refill Less than 3 Seconds Skin: No rashes, No breakdown Musculoskeletal: No Tenderness to Palpation of Joints or Extremities Neurological: Cranial nerves II-XII grossly intact, Neuro grossly intact Psych/Mental Status: Anxious, Impulsive, Irrational Behavior Patient seen and examined prior to discharge. Physical assessment as noted above. Patient is stable for discharge with follow up recommendations as noted above. This patient was seen by DALE Palomino under the supervision of Dr. Rooney. - Physical Exam Vitals/I&O's: Vital Signs Temp Pulse Resp BP Pulse Ox 97.0 F L 90 20 H 154/91 H 96 10/21/19 09:09 10/21/19 09:09 10/21/19 09:09 10/21/19 09:09 10/21/19 09:09 Oxygen Flow Rate (L/min) 2 Oxygen Delivery Method Room Air Weight: 139 lb 1.787 oz Body Mass Index (BMI) 23.8 Intake and Output for Last 24 Hours 10/19/19 10/20/19 10/21/19 23:59 23:59 23:59 Intake Total 540 / 540 Balance 540 / 540 Current Medications Acetaminophen (Tylenol) 650 mg PO Q6H PRN PRN PRN Reason: Pain Score 1-10/Temp > 100.7 F Last Admin: 10/18/19 10:32 Dose: 650 mg Documented by: Albuterol Sulfate (Ventolin Aerosols) 2.5 mg INHALATION Q4H PRN PRN PRN Reason: SOB &/OR WHEEZING Albuterol Sulfate (Ventolin Aerosols) 2.5 mg INHALATION Q6HWA.RT [facility] Last Admin: 10/21/19 07:04 Dose: 2.5 mg Documented by: Budesonide (Pulmicort Aerosol) 0.5 mg INHALATION Q12H.RT [facility] Last Admin: 10/21/19 07:04 Dose: 0.5 mg Documented by: Bupropion HCl (Wellbutrin Sr (150mg Tablets)) 150 mg PO BID [facility] Last Admin: 10/21/19 08:24 Dose: 150 mg Documented by: Calamine/Phenol (Calmoseptine Ointment) 1 applic TOPICAL 4X/DAY [facility]; Protocol Last Admin: 10/20/19 21:59 Dose: 1 applicatio Documented by: Dicyclomine HCl (Bentyl) 10 mg PO ACHS [facility] Last Admin: 10/21/19 06:49 Dose: 10 mg Documented by: Folic Acid (Folic Acid) 1 mg PO DAILY@0800 [facility] Last Admin: 10/21/19 08:23 Dose: 1 mg Documented by: Hydroxyzine Pamoate (Vistaril Pamoate Capsule) 50 mg PO Q4H PRN PRN PRN Reason: mild anxiety Last Admin: 10/21/19 06:51 Dose: 50 mg Documented by: Lisinopril (Zestril) 5 mg PO DAILY [facility] Last Admin: 10/20/19 08:25 Dose: 5 mg Documented by: Loperamide HCl (Imodium) 2 mg PO Q4H PRN PRN PRN Reason: LOOSE STOOLS Last Admin: 10/19/19 15:44 Dose: 2 mg Documented by: Mirtazapine (Remeron) 15 mg PO QHS [facility] Last Admin: 10/20/19 21:57 Dose: 15 mg Documented by: Multivitamins (Multivitamin) 1 tablet PO DAILY@0800 [facility] Last Admin: 10/21/19 08:23 Dose: 1 tablet Documented by: Nicotine (Nicoderm Cq (Pbkc)) 21 mg TRANSDERM. DAILY [facility] Last Admin: 10/20/19 08:26 Dose: Not Given Documented by: Ondansetron HCl (Zofran) 8 mg PO Q8H PRN PRN PRN Reason: NAUSEA Pantoprazole Sodium (Protonix) 40 mg PO BID [facility] Last Admin: 10/21/19 08:24 Dose: 40 mg Documented by: Phenobarbital (Phenobarbital) 32.4 mg PO Q6H [facility]; Taper Stop: 10/21/19 23:44 Last Admin: 10/21/19 06:49 Dose: 32.4 mg Documented by: Sodium Chloride () 10 - 40 ml IV UD PRN PRN Reason: SALINE FLUSH Thi[facility] ([facility]) [facility] Last Admin: 10/21/19 08:23 Dose: 100 mg Documented by: Discharge Diet: No Restrictions Discharge Activity: Return to Normal Activity Home Medications: Medications to take at Discharge loratadine 10 mg tablet 10 mg PO DAILY PRN 04/04/18 Fluticasone/Vilanterol [Breo Ellipta 100-25 Mcg INH] 1 puff INHALATION DAILY 07/16/18 Albuterol Sulfate [Ventolin Hfa] 2 puff IH Q4H PRN 11/16/18 Mirtazapine 15 mg PO QHS 11/16/18 buPROPion SR [Wellbutrin SR (150mg tablets)] 150 mg PO BID 11/16/18 Dicyclomine HCl [Bentyl] 10 mg PO ACHS 10/17/19 Folic Acid/Vit Bcomp,C/Cu/Zinc [Folbee Plus Cz Tablet] 1 tab PO DAILY 10/17/19 Hydroxyzine HCl 50 mg PO BID 10/17/19 Pantoprazole Sodium [Protonix] 40 mg PO BID 10/17/19 Primary Care Physician: Kellie Delarosa DO [Primary Care Provider] - Please follow up with your Primary Care Physician in: 1 Week Please Follow Up With: EIGHTY,ONE When: As scheduled Disposition: Home Minutes spent on discharge:: 35 Patient Condition:: Stable Medical Necessity - Tobacco Use Smoking Status: Current every day smoker Tobacco Use: Cigarettes Meaningful Use Info Meaningful Use Diagnoses (Choose all that apply): None applicable <ToribioCornish - Last Filed: 10/21/19 16:02> Discharge Date and Diagnosis - Secondary Discharge Diagnosis Chronic Problems COPD (chronic obstructive pulmonary disease) (Chronic) Depression (Chronic) Hypertension (Chronic) ETOH abuse (Chronic) Hospital Course and Treatment Summary of Care Provided: This patient was seen in conjunction with Kirsten Clifton NP. I have independently interviewed and examined the patient and reviewed pertinent historical, laboratory, and other data. Please refer to her note for patient's presentation, findings, and recommendations. 59-year-old female past medical history of alcohol use disorder was admitted for medical stabilization for alcohol withdrawal. Patient continued to remain stable on phenobarbital taper. She was seen by social work and was approved to go to [facility] for residential treatment. Her blood pressure during this hospital stay was fluctuating, patient initially was recommended to take lisinopril but she said that she had followed up with her primary nephrology and was told never to take it. She was prescribed a blood pressure machine to monitor her blood pressures and follow-up with her primary care doctor/nephrology if blood pressure remains elevated. On the day of discharge, patient was seen and examined. She was eager to be discharged. Physical Exam: Gen: Comfortable,not pale, not jaundiced, alert oriented x3, appeared anxious CVS:HS I +II, regular, no murmurs RESP: CTA GI: BS present and normal, nontender, no palpable organs EXT:No edema - Physical Exam Vitals/I&O's: Vital Signs Temp Pulse Resp BP Pulse Ox 98.0 F 90 18 153/93 H 99 10/21/19 09:55 10/21/19 09:55 10/21/19 09:55 10/21/19 09:55 10/21/19 09:55 Oxygen Flow Rate (L/min) 2 Oxygen Delivery Method Room Air Weight: 63.1 kg Body Mass Index (BMI) 23.8 Intake and Output for Last 24 Hours 10/19/19 10/20/19 10/21/19 23:59 23:59 23:59 Intake Total 540 / 540 Balance 540 / 540 Inpatient E&M: 73917 Disch Hosp
[2019-10-21 09:55] VITALS: BP 153/93; PULSE 90; RESP 18; TEMP 36.7; O2SAT 99
== END 2019-10-21 11:00 | disposition home or self-care (01) | DRG 775 ==
LOC: ED 17:37 → PCU 18:33
PROVIDERS: Internal Medicine; Emergency Provider Physician Assistant Medical; PCP Family Medicine; Visit Provider Internal Medicine
DX: F10.231 Alcohol dependence with withdrawal delirium (principal); K21.9 Gastro-esophageal reflux disease without esophagitis; F17.210 Nicotine dependence, cigarettes, uncomplicated; Y90.8 Blood alcohol level of 240 mg/100 ml or more; J44.9 Chronic obstructive pulmonary disease, unspecified; I10 Essential (primary) hypertension; F31.9 Bipolar disorder, unspecified; F41.9 Anxiety disorder, unspecified; G25.81 Restless legs syndrome
CPT/HCPCS: 80053; 80307; 80320; 81001; 82962; 85025; 93005; 94640; 97161; 97166; 99284; J7030; A4216; G0480

== ENCOUNTER → 2020-01-27 14:13 | Outpatient (CLI) | payer MEDICAID, SELFPAY ==
[2019-10-17 18:15] VITALS: BMI 23.8
--- NOTE | 2020-01-27 14:51 | RAD_ITS ---
STUDY: X-RAY - RIGHT KNEE REASON FOR EXAM: Female, 59 years old. right knee pain and hip pain for a long time, also back pain TECHNIQUE: 3 view(s) of the knee. COMPARISON: None. FINDINGS: Normal visualized distal femur. Normal visualized proximal tibia and fibula. Normal proximal tibiofibular articulation. Normal medial femorotibial compartment. Normal lateral femorotibial compartment. Normal patellofemoral articulation. The soft tissue structures are unremarkable. RAD/Knee 4 or More Views IMPRESSION: Normal x-ray examination of the knee. Electronically Signed: Ángel Capellan MD at 15:20 EDT , Service support ,
--- NOTE | 2020-01-27 14:55 | RAD_ITS ---
STUDY: X-RAY - PELVIS AND RIGHT HIP REASON FOR EXAM: Female, 59 years old. Right hip pain for a long time, also chronic back pain TECHNIQUE: 3 views of the pelvis and hip. COMPARISON: None. FINDINGS: There is a non-specific bowel gas pattern. Normal visualized soft tissue structures. Normal bilateral iliac wings, sacroiliac joints and visualized sacrum. Normal bilateral superior and inferior pubic rami. Normal pubic symphysis. Normal bilateral ischial tuberosities. Normal visualized femoral head. Normal acetabulum. Normal hip joint. RAD/HIP, UNI W/ Pelvis 2-3 Views IMPRESSION: Normal x-ray examination of the pelvis and hip. Electronically Signed: Ángel Capellan MD at 15:22 EDT , Service support ,
[2020-01-27 15:15] LABS: Absolute Lymphocyte Count 3.04 X10^3/uL (0.83-4.51); Absolute Neutrophil Count 3.4 X10^3/uL (2.0-7.7); Basophil# 0.06 X10^3/uL; Basophil% 0.8 % (0-1); Eosinophil# 0.27 X10^3/uL; Eosinophils% 3.6 % (0-5); Hematocrit 35.3 % (37-47); Hemoglobin 11.3 g/dL (12.0-15.0); Lymphocyte # 3.04 X10^3/ul (4.0); Mean Corpuscular Hgb 28.2 pg (27.0-32.0); Mean Platelet Vol. 9.5 fl (6.2-12.0); Monocyte# 0.67 X10^3/uL; NRBC Flagged by Analyzer 0 % (0-5); Neutrophil # 3.35 X10^3/uL (2.7-7.7); Neutrophil % 45.3 % (47-70); Platelet Count 290 K/mm3 (150-450); RBC Distribution Width CV 13.6 % (11.6-14.6); RBC Distribution Width SD 44.2 fl (35.1-43.9); Red Blood Count 4.01 M/mm3 (4.2-5.4); White Blood Count 7.4 K/mm3 (4.4-11.0)
[2020-01-27 15:56] LABS: Erythrocyte Sedimentation Rate 37 mm/hr (0-30)
[2020-01-27 16:28] LABS: AST(SGOT) 21 U/L (15-37); Alanine Aminotransfer ALT/SGPT 23 U/L (13-56); Albumin, Serum 3.8 g/dL (3.2-5.0); Alkaline Phosphatase 102 U/L (45-117); Anion Gap 4 (5-15); BUN 23 mg/dL (7-18); BUN/Creat Ratio 19.7 RATIO (10-20); CRP 7.66 mg/L (0.0-3.0); Calcium,Total 8.9 mg/dL (8.5-10.1); Chloride 105 mmol/L (98-107); Creatinine, Serum 1.17 mg/dL (0.55-1.02); EST Glomerular Filtration Rate 50 mL/min (>60); Est Glom Filt Rate - Afr Amer 61 mL/min (>60); Free T3 2.9 pg/mL (2.18-3.98); Globulin 3.9 g/dL (2.2-4.2); Glucose 89 mg/dL (74-106); Potassium 4.3 mmol/L (3.5-5.1); Protein, Total 7.7 g/dL (6.4-8.2); Rheumatoid Factor < 10.0 IU/mL (<15); Sodium Level 137 mmol/L (136-145); T4 Free Direct 0.87 ng/dL (0.76-1.46)
[2020-01-29 19:58] LABS: Anti-Nuclear Antibody Test Negative (.)
[2020-01-30 17:36] LABS: CCP IgG Antibodies 6 units (0-19)
== END ==
PROVIDERS: PCP Family Medicine; Referring Provider Family Medicine; Visit Provider Family Medicine
DX: M25.50 Pain in unspecified joint (principal); R53.83 Other fatigue; N18.3 Chronic kidney disease, stage 3 (moderate); M79.10 Myalgia, unspecified site; Z51.81 Encounter for therapeutic drug level monitoring; M25.561 Pain in right knee; M25.551 Pain in right hip
CPT/HCPCS: 36415; 73502; 73564; 80053; 84439; 84443; 84481; 85025; 85652; 86038; 86140; 86200; 86431

== ENCOUNTER → 2020-07-22 16:31 | Outpatient (CLI) | payer MEDICAID, SELFPAY ==
[2019-10-17 18:15] VITALS: BMI 23.8
[2020-07-22 17:18] LABS: Absolute Lymphocyte Count 2.69 X10^3/uL (0.83-4.51); Absolute Neutrophil Count 5.6 X10^3/uL (2.0-7.7); Basophil# 0.05 X10^3/uL; Basophil% 0.5 % (0-1); Eosinophil# 0.14 X10^3/uL; Eosinophils% 1.5 % (0-5); Hematocrit 34.9 % (37-47); Hemoglobin 11.1 g/dL (12.0-15.0); Lymphocyte # 2.69 X10^3/ul (4.0); Lymphocyte % 28.6 % (19-41); Mean Corp Hgb Conc 31.8 g/dL (32-36); Mean Corpuscular Hgb 29.8 pg (27.0-32.0); Mean Corpuscular Volume 93.8 fL (81-99); Mean Platelet Vol. 9.2 fl (6.2-12.0); Monocyte# 0.87 X10^3/uL; Monocyte% 9.2 % (0-10); NRBC Flagged by Analyzer 0 % (0-5); Neutrophil % 59.6 % (47-70); Platelet Count 255 K/mm3 (150-450); RBC Distribution Width CV 16.3 % (11.6-14.6); RBC Distribution Width SD 56.2 fl (35.1-43.9); Red Blood Count 3.72 M/mm3 (4.2-5.4); White Blood Count 9.4 K/mm3 (4.4-11.0)
[2020-07-22 17:30] LABS: Erythrocyte Sedimentation Rate 17 mm/hr (0-30)
[2020-07-22 18:09] LABS: ALB/GLOB Ratio 0.9 RATIO (0.9-2.4); AST(SGOT) 28 U/L (15-37); Alanine Aminotransfer ALT/SGPT 37 U/L (13-56); Albumin, Serum 3.7 g/dL (3.2-5.0); Alkaline Phosphatase 74 U/L (45-117); Anion Gap 8 (5-15); BUN 27 mg/dL (7-18); BUN/Creat Ratio 8.9 RATIO (10-20); Calcium,Total 8.9 mg/dL (8.5-10.1); Chloride 100 mmol/L (98-107); Creatinine, Serum 3.05 mg/dL (0.55-1.02); EST Glomerular Filtration Rate 17 mL/min (>60); Est Glom Filt Rate - Afr Amer 20 mL/min (>60); Ferritin 144 ng/mL (8-252); Globulin 3.9 g/dL (2.2-4.2); Glucose 90 mg/dL (74-106); Iron 59 ug/dL (50-170); Magnesium 1.5 mg/dL (1.6-2.6); Potassium 3.8 mmol/L (3.5-5.1); Protein, Total 7.6 g/dL (6.4-8.2); Sodium Level 134 mmol/L (136-145); Thyroid Stim Hormone (TSH) 3.05 uIU/mL (0.358-3.74)
[2020-07-24 07:03] LABS: SARS-COV-2 TOTAL ABS Reactive (Nonreactive)
== END ==
PROVIDERS: PCP Family Medicine; Visit Provider Family Medicine
DX: M25.50 Pain in unspecified joint (principal); M79.10 Myalgia, unspecified site; R53.83 Other fatigue; D64.9 Anemia, unspecified; Z51.81 Encounter for therapeutic drug level monitoring
CPT/HCPCS: 36415; 80053; 82728; 83540; 83735; 84443; 85025; 85652; 86140; 86769

== ENCOUNTER 2020-07-28 12:49 | Observation (INO) | payer MEDICAID, SELFPAY ==
[2019-10-17 18:15] VITALS: BMI 23.8
[2020-07-28] VITALS (7 sets, daily range): BP systolic 100–131; BP diastolic 61–88; PULSE 88–104; RESP 12–22; TEMP 36–36.9; O2SAT 94–100; BMI 23.6; BMI 23.7; BMI 23.4
--- NOTE | 2020-07-28 13:04 | RAD_ITS ---
STUDY: X-RAY CHEST REASON FOR EXAM: Female, 59 years old. Chest pain since last night, low blood sugar TECHNIQUE: Single AP portable view of the chest. COMPARISON: Comparison is made with prior study dated 12/08/2018. FINDINGS: EKG electrodes are seen. Hyperinflation. The lungs are clear. There is no demonstrated pleural abnormality. Normal size heart. Normal mediastinum and liam. Normal visualized pulmonary arteries. Normal visualized aortic arch and descending thoracic aorta. Normal visualized thoracic spine. Normal visualized ribs, clavicles, and shoulders. There is no demonstrated abnormality of the visualized soft tissue structures of the upper abdomen. RAD/Chest 1 View (Portable) IMPRESSION: Hyperinflation. The lungs are clear. Electronically Signed: Marty Cam MD at 13:52 EST , Service support ,
--- NOTE | 2020-07-28 13:04 | EKG12_ITS ---
Test Reason : CP REPEAT Blood Pressure : / mmHG Vent. Rate : 095 BPM Atrial Rate : 095 BPM P-R Int : 170 ms QRS Dur : 072 ms QT Int : 326 ms P-R-T Axes : 080 092 092 degrees QTc Int : 409 ms Normal sinus rhythm Septal infarct , age undetermined Abnormal ECG Confirmed by LUIZ NARVAEZ, LAYLA ([id number]), editorial manager KANDIS URIAS ([id number]) on 07/30/2020 2:32:28 PM Referred By: BILL Confirmed By:LAYLA DEE MD
--- NOTE | 2020-07-28 13:06 | ED.DCSUM_ITS ---
- ER Visit Summary Date of Service: 07/28/20 Chief Complaint: Chest pain and palpitations History of Present Illness: The patient is a 59 F who presents with chest pain and palpitations that has gradually getting worse over the past 3 days. Patient states it has been constant. Patient states she feels like her heart is racing. Patient states nothing makes it better nothing makes it worse. Patient states it is over the left upper chest area. Patient admits to nausea but denies any vomiting or diaphoresis. Patient does admit to some shortness of breath and cough. Patient denies any fevers or chills. Patient does admit to some lightheadedness with this. Patient also admits to a headache and general weakness. Patient states she feels like she is dehydrated. Patient states she has not been eating or drinking anything for the past 2 days. Physical Examination: Vital signs are stable except for mild tachycardia of 104. Patient is afebrile. Patient is in no acute distress. Oral mucosa is pink and moist. Neck is supple. Trachea is midline. There is no JVD noted. Heart was regular rate and rhythm. Lungs are clear but diminished bilaterally. Abdomen is soft. Bowel sounds are normal. There is no tenderness. There is no rebound or guarding noted. Skin is warm dry. Cranial nerves II through XII are intact. There are no focal motor or sensory deficits noted. Extremities are intact. There is no calf tenderness or edema. Test Results: EKG was obtained. On my interpretation, it showed sinus tachycardia with a rate of 104. There are no acute ST or T wave changes. It is essentially unchanged compared to previous EKG dated 10/17/2019. CBC was within normal limits. Basic metabolic profile showed a sodium of 129, chloride of 94, CO2 of 18, anion gap of 17, and glucose of 39. BUN and creatinine was elevated at 27 and 1.84. These are unchanged compared to previous results. Troponin was normal. Portable 1 view chest x-ray was obtained. On my interpretation, lung coronado are clear. There is normal cardiac silhouette. Bony thorax is normal. There is no acute process noted. Radiologist also interpreted the x-ray and agrees. Emergency Department Course and Treatment: Patient was given IV fluids and aspirin here. Patient was given a meal tray here. Patient was feeling better on reevaluation. Patient was advised of her findings. Case was discussed with the hospitalist, Dr. Rooney. She recommended obtaining a D-dimer. This was obtained. Patient will be admitted to PCU for observation. Patient understood and was agreeable with the plan. All questions were answered. Disposition: Admit to hospital Impression: 1. Anion gap metabolic acidosis This note was generated with [employer] dictation software. It may contain incorrect words, spelling, and punctuation that were not noted in review of the chart prior to signing ED Disposition - Plan for ED Patient: Disposition: Acute Care Hospital [facility] Diagnosis: High anion gap metabolic acidosis, Hypoglycemia Referrals: Kellie Delarosa DO [Primary Care Provider] -
[2020-07-28 13:26] LABS: Absolute Lymphocyte Count 2.16 X10^3/uL (0.83-4.51); Absolute Neutrophil Count 6.5 X10^3/uL (2.0-7.7); Basophil# 0.06 X10^3/uL; Basophil% 0.6 % (0-1); Eosinophil# 0.01 X10^3/uL; Eosinophils% 0.1 % (0-5); Hematocrit 38.2 % (37-47); Hemoglobin 12.7 g/dL (12.0-15.0); Lymphocyte # 2.16 X10^3/ul (4.0); Lymphocyte % 23.1 % (19-41); Mean Corp Hgb Conc 33.2 g/dL (32-36); Mean Corpuscular Hgb 30.4 pg (27.0-32.0); Mean Corpuscular Volume 91.4 fL (81-99); Mean Platelet Vol. 8.9 fl (6.2-12.0); Monocyte# 0.58 X10^3/uL; Monocyte% 6.2 % (0-10); NRBC Flagged by Analyzer 0 % (0-5); Neutrophil # 6.51 X10^3/uL (2.7-7.7); Neutrophil % 69.7 % (47-70); Platelet Count 280 K/mm3 (150-450); RBC Distribution Width CV 15.2 % (11.6-14.6); Red Blood Count 4.18 M/mm3 (4.2-5.4); White Blood Count 9.4 K/mm3 (4.4-11.0)
[2020-07-28 13:33] LABS: Anion Gap 17 (5-15); BUN 27 mg/dL (7-18); BUN/Creat Ratio 14.7 RATIO (10-20); Calcium,Total 9.5 mg/dL (8.5-10.1); Chloride 94 mmol/L (98-107); Creatinine, Serum 1.84 mg/dL (0.55-1.02); EST Glomerular Filtration Rate 30 mL/min (>60); Est Glom Filt Rate - Afr Amer 36 mL/min (>60); Estimated Creatinine Clearance 28.78 ml/min; Glucose 39 mg/dL (74-106); Potassium 4.6 mmol/L (3.5-5.1); Sodium Level 129 mmol/L (136-145)
[2020-07-28] MEDS: Aspirin 81 MG TAB.CHEW 324 MG PO (13:42)
--- NOTE | 2020-07-28 13:46 | ED.RN ---
pt given oj and sugar to elevate blood sugar. pt ordered a soft food diet. currently eating some applesauce
--- NOTE | 2020-07-28 14:01 | ED.RN ---
per pt no information to be given to [facility]
[2020-07-28 14:26] LABS: Bedside Glucose 76 mg/dL (70-110)
[2020-07-28] MEDS: Ondansetron 4 MG/2 ML Vial IV (15:34)
[2020-07-28] MEDS: 0.9% Normal Saline 1,000 ML 999 ML IV (15:34)
--- NOTE | 2020-07-28 15:43 | PCM.HP.STD ---
Problem List (1) High anion gap metabolic acidosis Status: Acute (2) Hypoglycemia Status: Acute (3) COPD (chronic obstructive pulmonary disease) Status: Chronic Qualifiers: COPD type: unspecified COPD Qualified Code(s): J44.9 - Chronic obstructive pulmonary disease, unspecified (4) Depression Status: Chronic Qualifiers: Depression Type: major depressive disorder Major depression recurrence: recurrent Active/Remission status: remission status unspecified Qualified Code(s): F33.9 - Major depressive disorder, recurrent, unspecified (5) Hypertension Status: Chronic Qualifiers: Hypertension type: essential hypertension Qualified Code(s): I10 - Essential (primary) hypertension History of Present Illness Date of Admission: 07/28/20 Chief Complaint: Palpitations, left-sided chest pain - 2 days The patient is a 59 year old F with past medical history of COPD, anxiety disorder, previous history of alcohol use disorder who comes in with complaints of palpitations and left-sided chest pain. Patient stated that she has been feeling unwell since . She has had multiple complaints including generalized weakness, anorexia, abdominal discomfort, diarrhea. She comes in with 2-day history of palpitations as well as left-sided chest pain that radiates to her left arm. She has been feeling progressively weak and has been unable to get out of bed over the last 2 days. She denies any diarrhea, she has severe nausea and has been vomiting. She denies any fever but has chills. She has a headache, that has been coming on and off since . Stated she had fallen a couple of weeks ago because her blood pressure dropped. At the time of being seen, she stated she feels better with the IV fluids. Her chest pain is much improved. Vitals in the ED showed temperature 97.1 F, heart rate 104, blood pressure 113/88, respiratory rate 12, SPO2 100% on room air. WBC count of 9.4, hemoglobin 12.7, platelet count 280, D-dimer 3.82, sodium 129, previous sodium was 134, potassium 4.6, chloride 94, bicarbonate 18, anion gap 17, BUN 27, creatinine 1.84, improved from 3.05, glucose 39, lactic acid 2.4, troponin 0 0.015. Admitting chest x-ray showed no acute abnormality. Past Medical History Past Medical History (Chronic Problems): Chronic Problems COPD (chronic obstructive pulmonary disease) (Chronic) Depression (Chronic) Hypertension (Chronic) Alcohol dependence (Chronic) ETOH abuse (Chronic) Medical History: Medical History (Last Updated 10/21/19 @ 09:12 by Kirsten Clifton NP, [employer]CR[employer]AN-C) Hepatotoxicity, secondary to ETOH (Resolved) K70.9 Elevated ETOH level (Acute) R78.0 ETOH abuse (Chronic) F10.10 Abnormal mammogram R92.8 Anxiety F41.9 Bipolar 1 disorder F31.9 COPD (chronic obstructive pulmonary disease) J44.9 Insomnia G47.00 Allergies Penicillins Allergy (Verified 07/28/20 12:53) WEAKNESS,VISION ISSUES PT STATES MAKES HER WEAK Home Medications: Ambulatory Orders Medication Instructions Recorded loratadine 10 mg tablet 10 mg PO DAILY PRN 04/04/18 Fluticasone/Vilanterol [Breo 1 puff INHALATION DAILY 07/16/18 Ellipta 100-25 Mcg INH] Albuterol Sulfate [Ventolin Hfa] 2 puff IH Q4H PRN 11/16/18 Mirtazapine 15 mg PO QHS 11/16/18 Dicyclomine HCl [Bentyl] 10 mg PO ACHS 10/17/19 Hydroxyzine HCl 50 mg PO BID 10/17/19 Pantoprazole Sodium [Protonix] 40 mg PO BID 10/17/19 Amlodipine [Norvasc] 10 mg PO DAILY 07/28/20 Duloxetine HCl 20 mg PO DAILY 07/28/20 Lisinopril [Zestril] 10 mg PO DAILY 07/28/20 Tramadol HCl [Ultram] 50 mg PO BID PRN PRN 07/28/20 Surgical History: Surgical History (Last Reviewed 10/17/19 @ 18:[address] 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 Tio Conley DO) Mother Hypertension Thyroid disorder CVA (cerebral vascular accident) Sister Heart disease History Items: Hypertension, Stroke, - - Thyroid disease Paternal Family History: Family History (Last Reviewed 10/17/19 @ 18:[address] Tio Conley DO) Mother Hypertension Thyroid disorder CVA (cerebral vascular accident) Sister Heart disease History Items: - - Alcoholism Sibling Family History: Family History (Last Reviewed 10/17/19 @ 18:[address] Tio Conley DO) Mother Hypertension Thyroid disorder CVA (cerebral vascular accident) Sister Heart disease History Items: Heart Disease Review of Systems Constitutional: Reports: Anorexia, Malaise, Weakness, Fatigue. Denies: Chills, Fever, Night Sweats, Weight Change Eyes: Denies: Blurred vision, Cataracts, Conjunctivae Inflammation, Pain, Redness, Vision Change HEENT: Denies: Difficulty Hearing, Difficulty Swallowing, Head Aches, Hearing Changes, Sinus Congestion, Sinus Drainage Cardiovascular: Reports: Chest Pain, Chest Pressure, Chest Tightness, Light Headedness. Denies: Claudication, Orthopnea, Palpitations, Paroxysmal Noc. Dyspnea Respiratory: Denies: Cough, Shortness of breath at rest, Shortness of breath upon exertion, Sputum production Gastrointestinal: Denies: Abdominal Pain, Constipation, Nausea, Vomiting Genitourinary: Denies: Dysuria Musculoskeletal: Denies: Joint Pain, Joint stiffness, Joint swelling, Joint Tenderness Skin: Denies: Rash, Wounds Neurological: Denies: Difficulty swallowing, Focal weakness, Numbness, Tingling Psychiatric: Denies: Anxiety, Depression, Homicidal Ideations, Suicidal Ideations Hematologic/ Lymphatic: Denies: Easy Bruising, Easy Bleeding VTE Information - Inpt Only VTE Present on Admission: No VTE Pharm Prophylaxis ordered?: Yes Patient Problems: Active and Suspected Problems (Last Updated 10/21/19 @ 09:12 by Kirsten Clifton [employer]CRETE FOREMAN, [employer]) High anion gap metabolic acidosis (Acute) Hypoglycemia (Acute) - Physical Exam Vitals/I&O's: Vital Signs Temp Pulse Resp BP Pulse Ox 97.1 F L 100 18 100/81 H 98 07/28/20 12:49 07/28/20 15:02 07/28/20 15:02 07/28/20 15:02 07/28/20 15:02 Oxygen Delivery Method Room Air Weight: 62.5 kg Body Mass Index (BMI) 23.6 Intake and Output for Last 24 Hours 07/26/20 07/27/20 07/28/20 23:59 23:59 23:59 Intake Total 500 / 500 Balance 500 / 500 General: Alert, Oriented x3, Cooperative, No apparent distress HEENT: Atraumatic, PERRLA, EOMI, Normocephalic Oral: Moist Mucosa Neck: Supple Lungs: No wheeze, Diminished Cardiovascular: Regular rate, Regular Rhythm, Normal S1, Normal S2, Tachycardic Abdomen: Bowel Sounds Present, Soft, Non Tender, Non-Distended, No Hepato-splenomegaly Extremities: No edema Skin: No rashes Musculoskeletal: No Tenderness to Palpation of Joints or Extremities Lymphatic: No Cervical, Supraclavicular, or Inguinal Adenopathy Neurological: Cranial nerves II-XII grossly intact, Neuro grossly intact Psych/Mental Status: Normal Affect, Appropriate Microbiology Past 72 Hours 07/28/20 12:55 Interface Orders SARS-CoV-2 Antigen (Rapid) - Final Laboratory Results 07/28/20 12:55: WBC 9.4, RBC 4.18 L, Hgb 12.7, Hct 38.2, MCV 91.4, MCH 30.4, MCHC 33.2, RDW Std Deviation 51.0 H, RDW Coeff of Rebeca 15.2 H, Plt Count 280, MPV 8.9, Immature Gran % (Auto) 0.300, Neut % (Auto) 69.7, Lymph % (Auto) 23.1, Young % (Auto) 6.2, Eos % (Auto) 0.1, Baso % (Auto) 0.6, Absolute Neuts (auto) 6.5, Absolute Lymphs (auto) 2.16, Nucleated RBC % 0 07/28/20 12:55: Sodium 129 L, Potassium 4.6, Chloride 94 L, Carbon Dioxide 18.0 L, Anion Gap 17 H, BUN 27 H, Creatinine 1.84 H, Estim Creat Clear Calc 28.78, Est GFR (MDRD) Af Amer 36 L, Est GFR (MDRD) Non-Af 30 L, BUN/Creatinine Ratio 14.7, Glucose 39 L*, Calcium 9.5, Troponin I < 0.015 07/28/20 14:20: POC Glucose 76 07/28/20 15:00: Lactic Acid Pending Assessment/Plan All Active Problems (Last Updated 10/21/19 @ 09:12 by Kirsten Clifton CONCRETE FOREMAN, [employer]EMAN-C) High anion gap metabolic acidosis (Acute) Hypoglycemia (Acute) YADIRA (acute kidney injury) (Acute) Alcohol withdrawal delirium, acute, hyperactive (Acute) Nausea and vomiting (Acute) Hepatotoxicity, secondary to ETOH (Resolved) Elevated ETOH level (Acute) 1. Chest pain, atypical, EKG shows sinus tachycardia D-dimer is pending; need to rule out acute PE Will admit to PCU, trend troponins 2. YADIRA, prerenal secondary to dehydration, Admitting creatinine is 1.84, appears improved from creatinine a week ago which was 3.05 Continue on IV fluids 3. Lactic acidosis, lactic acid of 2.4, likely secondary to dehydration Unclear source of infection; chest x-ray is negative for pneumonia We will continue on IV fluids, repeat lactic acid per protocol 4. Anion gap metabolic acidosis likely secondary to starvation ketosis versus alcoholic ketosis Patient has history of alcohol use disorder her last admission in October 2019 She denies any use of alcohol We will check urine tox Continue on D5 normal saline, repeat BMP 5. Hypoglycemia likely secondary to starvation No history of diabetes, will continue on D5 normal saline Blood glucose check every 6h 6. COPD, not in acute exacerbation Continue on as needed breathing treatments 7. Nicotine dependence, advised to quit, will put on replacement 8. DVT prophylaxis -heparin subcu Inpatient E&M: [id number] Init Hosp L3
[2020-07-28 16:02] LABS: Lactic Acid 2.4 mmol/L (0.4-1.9)
[2020-07-28 17:24] LABS: D-Dimer Quantitative (DVT/PE) 3.82 FEU/ug/m (0.27-0.49)
--- NOTE | 2020-07-28 17:34 | CT_ITS ---
STUDY: CTA CHEST REASON FOR EXAM: Female, 59 years old. ELEV D DIMER, LT UPPER CP GETTING WORSE, NAUSEA, SOB, COUGH, ALVAREZ, HYSTER, BLADDER SLING, COPD, HTN, ETOH ABUSE RADIATION DOSAGE (If Supplied By Facility): CTDIvol = ( 4.2 ) mGy, DLP = ( 178.21 ) mGycm TECHNIQUE: The examination was performed with the intravenous administration of 75mL Isovue-370. Post-processing of the angiographic images was performed, with multiplanar reformation and 3D reconstruction. Individualized dose optimization techniques were used for this CT. COMPARISON: Chest x-ray FINDINGS: Normal enhancement of the main pulmonary artery and right and left pulmonary arteries. Normal enhancement of the bilateral peripheral pulmonary arteries. There is no demonstrated pulmonary embolism. There is atherosclerotic calcification of the aortic arch with tortuosity. There is no demonstrated aortic dissection. There are calcifications of the coronary arteries. Normal mediastinum. Normal hilar regions. Normal visualized trachea and bronchi. The lungs are well expanded. There is emphysema of the lungs. There are mild fibrotic densities. Normal pleura. Normal chest wall structures. Normal osseous structures. Normal visualized upper abdomen. CT/CTA Chest W/WO Contrast IMPRESSION: CTA chest examination, without a demonstrated pulmonary embolism or arterial dissection. No focal infiltrate. Electronically Signed: Maciel Alvarez MD at 19:50 EST , Service support ,
[2020-07-28] MEDS: Dextrose 5%/0.9% NaCl 1,000 ML 150 ML IV (17:36)
[2020-07-28] MEDS: hydrOXYzine PAM 25 MG Capsule 50 MG PO (17:36)
[2020-07-28] MEDS: Dicyclomine 10 MG Capsule PO ×2 (17:36→22:26)
[2020-07-28 17:45] LABS: Bedside Glucose 117 mg/dL (70-110)
--- NOTE | 2020-07-28 18:10 | EKG12_ITS ---
Test Reason : CP Blood Pressure : / mmHG Vent. Rate : 104 BPM Atrial Rate : 104 BPM P-R Int : 164 ms QRS Dur : 072 ms QT Int : 332 ms P-R-T Axes : 086 088 083 degrees QTc Int : 436 ms Sinus tachycardia Nonspecific T wave abnormality Abnormal ECG Confirmed by LUIZ NARVAEZ, LAYLA ([id number]), assignment desk editor KANDIS URIAS ([id number]) on 08/03/2020 12:52:02 PM Referred By: ABHILASH Confirmed By:LYALA DEE MD
[2020-07-28 19:07] LABS: Reflex Lactate? Y
[2020-07-28 19:09] LABS: Amphetamine Urine VISTA NEGATIVE (<1000 ng/mL); Barbiturate Urine VISTA POSITIVE (< 200 ng/mL); Benzodiazepine Urine VISTA NEGATIVE (< 200 ng/mL); Cocaine Urine VISTA NEGATIVE (< 300 ng/mL); Ecstacy Urine VISTA NEGATIVE (< 500 ng/mL); Methadone Urine VISTA NEGATIVE (< 300 ng/mL); PCP Urine VISTA NEGATIVE (< 25 ng/mL); THC Urine VISTA NEGATIVE (< 50 ng/mL); Vista UDS pH Range 6
[2020-07-28 19:32] LABS: AST(SGOT) 33 U/L (15-37); Alanine Aminotransfer ALT/SGPT 29 U/L (13-56); Albumin, Serum 2.9 g/dL (3.2-5.0); Alkaline Phosphatase 70 U/L (45-117); Bilirubin, Direct 0.11 mg/dL (0.00-0.30); Globulin 3.3 g/dL (2.2-4.2); Magnesium 1.3 mg/dL (1.6-2.6); Protein, Total 6.2 g/dL (6.4-8.2); Thyroid Stim Hormone (TSH) 0.66 uIU/mL (0.358-3.74)
[2020-07-28 20:57] LABS: Lactic Acid 0.6 mmol/L (0.4-1.9)
[2020-07-28 21:07] LABS: Anion Gap 6 (5-15); BUN 23 mg/dL (7-18); Calcium,Total 7.8 mg/dL (8.5-10.1); Chloride 105 mmol/L (98-107); Creatinine, Serum 1.44 mg/dL (0.55-1.02); EST Glomerular Filtration Rate 40 mL/min (>60); Est Glom Filt Rate - Afr Amer 48 mL/min (>60); Estimated Creatinine Clearance 36.77 ml/min; Glucose 153 mg/dL (74-106); Potassium 4.4 mmol/L (3.5-5.1); Sodium Level 134 mmol/L (136-145)
[2020-07-28] MEDS: Heparin Injection (Vial) 5,000 UNIT/ML VIAL 5000 UNIT SC (22:24)
[2020-07-28] MEDS: Magnesium Sulfate 4gm/100mL 4 GM/100 ML IV.SOLN. IV (22:24)
[2020-07-28] MEDS: Pantoprazole Sodium 40 MG Tablet PO (22:25)
[2020-07-28] MEDS: Mirtazapine 15 MG Tablet PO (22:26)
[2020-07-29] VITALS (8 sets, daily range): BP systolic 115–145; BP diastolic 74–93; PULSE 78–96; RESP 17–18; TEMP 36.2–36.8; O2SAT 92–95
[2020-07-29] MEDS: Dextrose 5%/0.9% NaCl 1,000 ML 150 ML IV ×2 (04:25→11:13)
[2020-07-29 06:03] LABS: Absolute Lymphocyte Count 1.92 X10^3/uL (0.83-4.51); Absolute Neutrophil Count 3.2 X10^3/uL (2.0-7.7); Basophil# 0.03 X10^3/uL; Basophil% 0.5 % (0-1); Eosinophil# 0.08 X10^3/uL; Eosinophils% 1.3 % (0-5); Hematocrit 30.1 % (37-47); Hemoglobin 10.1 g/dL (12.0-15.0); Lymphocyte # 1.92 X10^3/ul (4.0); Mean Corp Hgb Conc 33.6 g/dL (32-36); Mean Corpuscular Hgb 30.1 pg (27.0-32.0); Mean Corpuscular Volume 89.9 fL (81-99); Monocyte# 0.72 X10^3/uL; NRBC Flagged by Analyzer 0 % (0-5); Neutrophil # 3.23 X10^3/uL (2.7-7.7); Neutrophil % 53.9 % (47-70); Platelet Count 210 K/mm3 (150-450); RBC Distribution Width CV 15.3 % (11.6-14.6); RBC Distribution Width SD 49.8 fl (35.1-43.9); Red Blood Count 3.35 M/mm3 (4.2-5.4)
[2020-07-29] MEDS: Dicyclomine 10 MG Capsule PO ×4 (06:27→22:12)
[2020-07-29 06:38] LABS: ALB/GLOB Ratio 0.9 RATIO (0.9-2.4); AST(SGOT) 29 U/L (15-37); Alanine Aminotransfer ALT/SGPT 29 U/L (13-56); Albumin, Serum 2.9 g/dL (3.2-5.0); Alkaline Phosphatase 77 U/L (45-117); Anion Gap 3 (5-15); BUN 18 mg/dL (7-18); Chloride 105 mmol/L (98-107); Creatinine, Serum 1.29 mg/dL (0.55-1.02); EST Glomerular Filtration Rate 45 mL/min (>60); Est Glom Filt Rate - Afr Amer 54 mL/min (>60); Estimated Creatinine Clearance 41.05 ml/min; Globulin 3.3 g/dL (2.2-4.2); Glucose 150 mg/dL (74-106); Protein, Total 6.2 g/dL (6.4-8.2); Sodium Level 136 mmol/L (136-145)
[2020-07-29] MEDS: hydrOXYzine PAM 25 MG Capsule 50 MG PO ×2 (08:50→22:12)
[2020-07-29] MEDS: Heparin Injection (Vial) 5,000 UNIT/ML VIAL 5000 UNIT SC ×2 (08:50→22:12)
[2020-07-29] MEDS: amLODIPine 10 MG Tablet PO (08:50)
[2020-07-29] MEDS: DULoxetine Hcl 20 MG Capsule PO (08:50)
[2020-07-29] MEDS: Pantoprazole Sodium 40 MG Tablet PO ×2 (08:58→22:12)
--- NOTE | 2020-07-29 11:59 | PCM.PROGNOTE ---
Patient Problems: Active and Suspected Problems (Last Updated 10/21/19 @ 09:12 by Kirsten Clifton INSURANCE PROFESSIONAL, INSURANCE PROFESSIONAL-C) Hypoglycemia (Acute) Subjective: Chief complaint: Follow-up after admission for chest pain, hypoglycemia, acute kidney injury and anion gap metabolic acidosis as well as lactic acidosis. Patient seen and examined. No acute events overnight. Today, she mentioned that chest pain is getting better but still having some pressure. She reported some cough as well. She complains of right shoulder pain. She stated that she did not drink alcohol since October,. She denied use of drugs. She stated that she lives with a friend and she has been having difficulties with liver conditions. She reported poor appetite and sometimes, she stays with days without eating or drinking. She feels depressed. She denied suicidal ideations or intentions. Her daughter 3 years ago and she was 29 years old, she had what seemed to be endocarditis. Today, her vital signs are stable. - Physical Exam Vitals/I&O's: Vital Signs Temp Pulse Resp BP Pulse Ox 97.1 F L 94 18 145/93 H 94 07/29/20 08:45 07/29/20 08:45 07/29/20 08:45 07/29/20 08:45 07/29/20 08:45 Oxygen Delivery Method Room Air Weight: 136 lb 10.986 oz Body Mass Index (BMI) 23.4 Intake and Output for Last 24 Hours 07/27/20 07/28/20 07/29/20 23:59 23:59 23:59 Intake Total 1522.5 / 1522.5 2077.5 / 2077.5 Balance 1522.5 / 1522.5 2076.5 / 2076.5 General: Alert, Oriented x3, Cooperative, No apparent distress HEENT: Atraumatic, PERRLA, EOMI, Normocephalic Oral: Moist Mucosa, No Gingival or Mucosal Lesions/ Ulcerations Neck: Supple, No JVD, Negative Carotid Bruits, Trachea Midline, Thyroid Normal Size and Texture Lungs: Clear to auscultation, Normal air movement, No rhonchi, No wheeze, No rales, Diminished Cardiovascular: Regular rate, Regular Rhythm, Normal S1, Normal S2, PMI Normal Abdomen: Bowel Sounds Present, Soft, Non Tender, Non-Distended, No Hepato-splenomegaly Extremities: No clubbing, No cyanosis, No edema Skin: No rashes, No breakdown Lymphatic: No Cervical, Supraclavicular, or Inguinal Adenopathy Neurological: Cranial nerves II-XII grossly intact, Motor Exam 5/5 strength throughout Psych/Mental Status: Normal Affect, Appropriate, Alert and oriented to time, place, person, mood and affect Microbiology Past 72 Hours 07/28/20 12:55 Interface Orders SARS-CoV-2 Antigen (Rapid) - Final Laboratory Results 07/28/20 12:55: WBC 9.4, RBC 4.18 L, Hgb 12.7, Hct 38.2, MCV 91.4, MCH 30.4, MCHC 33.2, RDW Std Deviation 51.0 H, RDW Coeff of Rebeca 15.2 H, Plt Count 280, MPV 8.9, Immature Gran % (Auto) 0.300, Neut % (Auto) 69.7, Lymph % (Auto) 23.1, Traverse % (Auto) 6.2, Eos % (Auto) 0.1, Baso % (Auto) 0.6, Absolute Neuts (auto) 6.5, Absolute Lymphs (auto) 2.16, Nucleated RBC % 0 07/28/20 12:55: Sodium 129 L, Potassium 4.6, Chloride 94 L, Carbon Dioxide 18.0 L, Anion Gap 17 H, BUN 27 H, Creatinine 1.84 H, Estim Creat Clear Calc 28.78, Est GFR (MDRD) Af Amer 36 L, Est GFR (MDRD) Non-Af 30 L, BUN/Creatinine Ratio 14.7, Glucose 39 L*, Calcium 9.5, Troponin I < 0.015 07/28/20 14:20: POC Glucose 76 07/28/20 15:00: Lactic Acid 2.4 H* 07/28/20 16:51: D-Dimer Quant (PE/DVT) 3.82 H* 07/28/20 17:42: POC Glucose 117 H 07/28/20 18:17: Magnesium 1.3 L, Total Bilirubin 0.40, Direct Bilirubin 0.11, AST 33, ALT 29, Alkaline Phosphatase 70, Troponin I < 0.015, Total Protein 6.2 L, Albumin 2.9 L, Globulin 3.3, TSH 0.66 07/28/20 18:25: Urine Opiates Screen NEGATIVE, Urine Methadone Screen NEGATIVE, Ur Barbiturates Screen POSITIVE H, Ur Phencyclidine Scrn NEGATIVE, Ur Amphetamines Screen NEGATIVE, U Methamphetamin-MDMA NEGATIVE, U Benzodiazepines Scrn NEGATIVE, Urine Cocaine Screen NEGATIVE, U Cannabinoids Screen NEGATIVE, Ur Drug Screen Comment 07/28/20 20:19: Troponin I < 0.015 07/28/20 20:19: Lactic Acid 0.6 07/28/20 20:19: Sodium 134 L, Potassium 4.4, Chloride 105, Carbon Dioxide 23.0, Anion Gap 6, BUN 23 H, Creatinine 1.44 H, Estim Creat Clear Calc 36.77, Est GFR (MDRD) Af Amer 48 L, Est GFR (MDRD) Non-Af 40 L, BUN/Creatinine Ratio 16.0, Glucose 153 H, Calcium 7.8 L 07/28/20 23:19: Troponin I < 0.015 07/29/20 05:25: WBC 6.0, RBC 3.35 L, Hgb 10.1 L, Hct 30.1 L, MCV 89.9, MCH 30.1, MCHC 33.6, RDW Std Deviation 49.8 H, RDW Coeff of Rebeca 15.3 H, Plt Count 210, MPV 9.0, Immature Gran % (Auto) 0.300, Neut % (Auto) 53.9, Lymph % (Auto) 32.0, Traverse % (Auto) 12.0 H, Eos % (Auto) 1.3, Baso % (Auto) 0.5, Absolute Neuts (auto) 3.2, Absolute Lymphs (auto) 1.92, Nucleated RBC % 0 07/29/20 05:25: Sodium 136, Potassium 4.0, Chloride 105, Carbon Dioxide 28.0, Anion Gap 3 L, BUN 18, Creatinine 1.29 H, Estim Creat Clear Calc 41.05, Est GFR (MDRD) Af Amer 54 L, Est GFR (MDRD) Non-Af 45 L, BUN/Creatinine Ratio 14.0, Glucose 150 H, Calcium 8.0 L, Total Bilirubin 0.40, AST 29, ALT 29, Alkaline Phosphatase 77, Total Protein 6.2 L, Albumin 2.9 L, Globulin 3.3, Albumin/Globulin Ratio 0.9 Clinical Impression(s) from Imaging Studies Chest X-Ray 07/28/20 13:04 IMPRESSION: Hyperinflation. The lungs are clear. Electronically Signed: Marty Cam MD at 13:52 EST , Service support , Chest CTA 07/28/20 17:34 IMPRESSION: CTA chest examination, without a demonstrated pulmonary embolism or arterial dissection. No focal infiltrate. Electronically Signed: Maciel Alvarez MD at 19:50 EST , Service support , Current Medications Acetaminophen (Acetaminophen 325 Mg Tablet) 650 mg PO Q6H PRN PRN PRN Reason: Pain Score 1-10/Temp > 100.7 F Al Hydroxide/Mg Hydroxide (Mag Hydrox/Al Hydrox/Simeth 30 Ml Udc) 30 ml PO Q6H PRN PRN PRN Reason: Gastric Burning Albuterol Sulfate (Albuterol 2.5 Mg/3 Ml Vial.Neb.) 2.5 mg INHALATION Q4H PRN PRN Reason: SOB &/OR WHEEZING Amlodipine Besylate (Amlodipine 10 Mg Tablet) 10 mg PO DAILY [facility] Last Admin: 07/29/20 08:50 Dose: 10 mg Documented by: Dicyclomine HCl (Dicyclomine 10 Mg Capsule) 10 mg PO ACHS [facility] Last Admin: 07/29/20 11:14 Dose: 10 mg Documented by: Duloxetine HCl (Duloxetine Hcl 20 Mg Capsule) 20 mg PO DAILY [facility] Last Admin: 07/29/20 08:50 Dose: 20 mg Documented by: Heparin Sodium (Porcine) (Heparin Injection (Vial) 5,000 Unit/Ml Vial) 5,000 unit SC Q12 [facility] Last Admin: 07/29/20 08:50 Dose: 5,000 unit Documented by: Hydroxyzine Pamoate (Hydroxyzine Paulette 25 Mg Capsule) 50 mg PO BID [facility] Last Admin: 07/29/20 08:50 Dose: 50 mg Documented by: Sodium Chloride () 1,000 mls @ 75 mls/hr IV .[id number] [facility] Stop: 07/30/20 01:14 Loratadine (Loratadine 10 Mg Tablet) 10 mg PO DAILY PRN PRN Reason: ALLERGIES Mirtazapine (Mirtazapine 15 Mg Tablet) 15 mg PO QHS [facility] Last Admin: 07/28/20 22:26 Dose: 15 mg Documented by: Nicotine (Nicotine 14 Mg Patch) 14 mg TD DAILY [facility] Last Admin: 07/29/20 08:50 Dose: 14 mg Documented by: Nicotine Polacrilex (Nicotine Polacrilex 2 Mg Gum) 2 mg PO Q2H PRN PRN PRN Reason: Nicotine Craving Ondansetron HCl (Ondansetron 4 Mg/2 Ml Vial) 4 mg IV Q8H PRN PRN PRN Reason: NAUSEA/VOMITING Pantoprazole Sodium (Pantoprazole Sodium 40 Mg Tablet) 40 mg PO BID [facility] Last Admin: 07/29/20 08:58 Dose: 40 mg Documented by: Sodium Chloride (0.9% Saline Lock 10 Ml Syringe) 10 - 40 ml IV UD PRN PRN Reason: SALINE FLUSH Tramadol HCl (Tramadol 50 Mg Tablet) 50 mg PO BID PRN PRN PRN Reason: Pain 1-10 Medical Necessity - Tobacco Use Smoking Status: Current every day smoker Tobacco Use: Cigarettes Assessment/Plan All Active Problems (Last Updated 10/21/19 @ 09:12 by Kirsten Clifton INSURANCE PROFESSIONAL, INSURANCE PROFESSIONAL-C) Chest pain (Acute) Hypoglycemia (Acute) This is a 59 years old female patient presented to the emergency room because of chest pain, palpitation, not feeling well over couple of months, found to have hypoglycemia with blood glucose of 39 g/dL, lactic acidosis/anion gap metabolic acidosis, as well as acute kidney injury in the setting of chronic kidney disease. #1 hypoglycemia: It is due to starvation, patient did not eat for couple of days, having poor appetite. Blood sugar stabilized. She has been on D5 percent IV fluids. No history of diabetes. Plan: Discontinue D5 IV fluids, encourage oral intake, continue Accu-Cheks, repeat CBC and BMP tomorrow morning. #2 chest pain: EKG reviewed, no acute hemic changes. Troponin was negative x3. CTA chest and chest x-ray was unremarkable. Her risk factors for CAD are her age, hypertension, history of alcohol abuse and tobacco abuse. Today, chest pain improved but still having some kind of chest pressure. Plan: Nuclear stress test tomorrow morning. #3 acute kidney injury: In the setting of chronic kidney disease, her creatinine is been fluctuating significantly over the last couple of years, it has been anywhere from 1 to 3 mg/dL. Admission creatinine is 1.84, patient looks very dehydrated. She has been on IV fluids, creatinine came down to 1.29 today. Plan to change IV fluids to normal saline, encourage oral intake, repeat BMP tomorrow morning. #4 anion gap metabolic acidosis/lactic acidosis: Likely due to starvation and not eating for couple of days. No evidence of infection. Lactic acid is back to normal with IV fluids. She has been afebrile, other vitals are stable. COVID-19 antigen came back negative. #5 elevated D-dimer: CTA chest without PE or dissection. #6 hypomagnesemia: Due to malnutrition secondary to chronic alcohol use. She received IV magnesium sulfate, plan to repeat serum magnesium tomorrow morning. #7 alcohol abuse: Patient stated that she quit drinking on October,. We will do blood alcohol level. #8 COPD: Clinically stable, on room air. Chest x-ray without acute findings. Continue albuterol as needed, start DuoNeb every 6 hours. #9 hypertension: Blood pressure stable, continue Norvasc, keep holding lisinopril. #10 chronic kidney disease: As mentioned above, creatinine has been fluctuating significantly, plan as above. #11 depression: Patient reported depression from time to time, especially when she remembers her daughter who 3 years ago, she was 29 years old. She denied any suicidal intentions or ideations. Continue Cymbalta and Remeron. #12 tobacco abuse: NicoDerm patch. #13 DVT prophylaxis: Subcu heparin. This note was generated with docplanner dictation software. It may contain incorrect words, spelling, and punctuation that were not noted in checking the note before signing. Inpatient E&M: 82418 Subs Hosp L2
[2020-07-29 13:06] LABS: Alcohol, Blood (Medical)-Serum < 3.0 mg/dL
--- NOTE | 2020-07-29 13:28 | CASEMGMT ---
SURINDER CURRY assessment: Face to Face with patient for initial transition planning/care coordination assessment. SURINDER CURRY introduced self and role at [facility], pt voices understanding and consents to assessment at this time. Pt is sitting up in chair in no distress at this time. Pt is A/Ox4 at this time and answers all questions appropriately at this time. Care providers, pharmacy, and demographics verified/updated at this time. Presentation: Chest pain since last night Admitting dx: Chest pain, YADIRA, hypoglycemia PCP: [place] Specialists: Jerry, pain management Preferred Pharmacy: [facility] Insurance: [facility] [[email or web address]] Prescription Benefit: [facility] [[email or web address]] Living Will/HPOA: Pt states does not have LW/HPOA and declines AD info at this time. LNOK: Ron Gonzales, son Living Arrangements: Pt states lives with friend in mobile home with 1 step in and states no concerns at home at this time. Pt states is independent with ADL's. Transportation: Pt states drives self and states no transportation concerns at this time. DME/HHC: Pt states has a rollator and shower chair and declines need for any further DME. Pt states no hx of HHC or SNF in the past. Pt states she went through [facility] detox program last spring and has been going to AA meetings since and states has not drank ETOH since then. Per progress note, pt's daughter at age 28 which was 3 years ago and pt states went through the [facility]ospice bereavement program at that time. Pt states no need for any further resources for this at this time. Pt states no concerns with going home at time of discharge. 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 Pt states does smoke 1/2 pack cigarettes daily but would like to quit at this time and states may not start back up once discharged. Pt states has not drank ETOH since left [facility] detox last spring. Pt states has had decreased appetite since and has lost about 15lbs. Pt voices no further concerns/needs at this time. CM to follow for any further discharge planning/needs. Advised pt to ask for CM if any further questions/concerns/needs arise, voices understanding. Pt Goal: Home Plan: [place] SURINDER CURRY
[2020-07-29] MEDS: 0.9% Normal Saline 1,000 ML 75 ML IV (14:32)
[2020-07-29] MEDS: Ipratropium/Albuterol Sulfate 3 ML AMPUL.NEB INHALATION (19:49)
[2020-07-29] MEDS: Mirtazapine 15 MG Tablet PO (22:12)
[2020-07-30 02:45] VITALS: BP 132/83; PULSE 86; RESP 17; TEMP 36.8; O2SAT 92
[2020-07-30 06:09] LABS: Absolute Lymphocyte Count 2.07 X10^3/uL (0.83-4.51); Absolute Neutrophil Count 3.5 X10^3/uL (2.0-7.7); Basophil# 0.04 X10^3/uL; Basophil% 0.6 % (0-1); Eosinophil# 0.13 X10^3/uL; Eosinophils% 2.1 % (0-5); Hematocrit 28.3 % (37-47); Hemoglobin 9.3 g/dL (12.0-15.0); Lymphocyte # 2.07 X10^3/ul (4.0); Lymphocyte % 32.7 % (19-41); Mean Corp Hgb Conc 32.9 g/dL (32-36); Mean Corpuscular Hgb 30.3 pg (27.0-32.0); Mean Corpuscular Volume 92.2 fL (81-99); Mean Platelet Vol. 8.9 fl (6.2-12.0); Monocyte# 0.59 X10^3/uL; Monocyte% 9.3 % (0-10); NRBC Flagged by Analyzer 0 % (0-5); Neutrophil # 3.49 X10^3/uL (2.7-7.7); Neutrophil % 55.1 % (47-70); Platelet Count 180 K/mm3 (150-450); RBC Distribution Width CV 15.8 % (11.6-14.6); RBC Distribution Width SD 53.5 fl (35.1-43.9); Red Blood Count 3.07 M/mm3 (4.2-5.4); White Blood Count 6.3 K/mm3 (4.4-11.0)
[2020-07-30 06:35] LABS: Anion Gap 5 (5-15); BUN 6 mg/dL (7-18); Calcium,Total 7.7 mg/dL (8.5-10.1); Chloride 109 mmol/L (98-107); Creatinine, Serum 0.86 mg/dL (0.55-1.02); EST Glomerular Filtration Rate 72 mL/min (>60); Est Glom Filt Rate - Afr Amer 87 mL/min (>60); Estimated Creatinine Clearance 61.57 ml/min; Glucose 99 mg/dL (74-106); Magnesium 1.6 mg/dL (1.6-2.6); Potassium 3.7 mmol/L (3.5-5.1); Sodium Level 140 mmol/L (136-145)
[2020-07-30] MEDS: Dicyclomine 10 MG Capsule PO ×2 (06:53→10:20)
[2020-07-30 07:00] VITALS: PULSE 80
--- NOTE | 2020-07-30 09:04 | STRESSREP ---
Stress Test Report Pharmacologic myocardial perfusion stress test. 59-year-old lady with a history of chest pain. Stress protocol: Resting EKG demonstrates normal sinus rhythm with a rate of 81 bpm resting blood pressure is 156/88 mmHg. 0.4 mg of regadenoson was infused per usual protocol followed by rapid intravenous saline flush injection continuous EKG monitoring was performed. The maximum heart rate attained 118 bpm which was 72% of max impacted heart rate the maximum workload was 1 metabolic equivalent. At rest nonspecific ST-T wave changes were noted at peak infusion nonspecific ST-T wave changes were noted. No clinical angina was present. The final blood pressure is 144/92 mmHg. The maximum blood pressure was 160/90 mmHg. Myocardial perfusion protocol. 11.5 mCi of technetium 99m sestamibi was injected at rest. 0.4 mg of regadenoson was infused per usual protocol. At peak infusion 32.4 mCi of technetium 99m sestamibi was injected stress images were obtained stress and rest images were reconstructed and compared in the short axis vertical long horizontal long axis. Gated images were also obtained Perfusion SPECT analysis: Review of the stress images demonstrate normal uptake of tracer noted in all areas of the myocardium the resting images similar demonstrate normal uptake of tracer noted in all areas of the myocardium. No reversibility is noted suggest ischemia no previous infarct is noted. Gated SPECT analysis: The gated ejection fraction is 80%. Conclusion: Normal pharmacologic myocardial perfusion stress test. Preserved ejection fraction.
[2020-07-30 09:19] VITALS: BP 151/82; PULSE 93; RESP 18; TEMP 36.8; O2SAT 97
[2020-07-30] MEDS: hydrOXYzine PAM 25 MG Capsule 50 MG PO (09:22)
[2020-07-30] MEDS: Pantoprazole Sodium 40 MG Tablet PO (09:22)
[2020-07-30] MEDS: DULoxetine Hcl 20 MG Capsule PO (09:22)
[2020-07-30] MEDS: Heparin Injection (Vial) 5,000 UNIT/ML VIAL 5000 UNIT SC (09:22)
[2020-07-30] MEDS: amLODIPine 10 MG Tablet PO (09:23)
--- NOTE | 2020-07-30 10:02 | DCINST_ITS ---
- Discharge Diagnoses Current Active Problems: Current Active and Chronic Problems (Last Updated 07/29/20 @ 11:[address] Jose F Heck MD) Hypoglycemia (Acute) COPD (chronic obstructive pulmonary disease) (Chronic) Depression (Chronic) Hypertension (Chronic) You will use the following diet at home:: Cardiac Your food should be the consistency of: Regular Discharge Activity: Return to Normal Activity Return to work on:: 08/03/20 Weight Bearing Status: Weight bearing as tolerated Call your doctor if you observe: Fever of 101 or Higher, Shortness of breath, Dizziness, Fainting spells, Chest pain, Increased palpitations (irregular heartbeat), Uncontrolled pain Allergies/Adverse Reactions: Allergies Penicillins Allergy (Verified 07/28/20 12:53) WEAKNESS,VISION ISSUES PT STATES MAKES HER WEAK Medications to take at Discharge loratadine 10 mg tablet 10 mg PO DAILY PRN 04/04/18 Fluticasone/Vilanterol [Breo Ellipta 100-25 Mcg INH] 1 puff INHALATION DAILY 07/16/18 Albuterol Sulfate [Ventolin Hfa] 2 puff IH Q4H PRN 11/16/18 Mirtazapine 15 mg PO QHS 11/16/18 Dicyclomine HCl [Bentyl] 10 mg PO ACHS 10/17/19 Hydroxyzine HCl 50 mg PO BID 10/17/19 Pantoprazole Sodium [Protonix] 40 mg PO BID 10/17/19 Amlodipine [Norvasc] 10 mg PO DAILY 07/28/20 Duloxetine HCl 20 mg PO DAILY 07/28/20 Lisinopril [Zestril] 10 mg PO DAILY 07/28/20 Tramadol HCl [Ultram] 50 mg PO BID PRN PRN 07/28/20 Primary Care Physician: Kellie Delarosa DO [Primary Care Provider] - Please follow up with your Primary Care Physician in: 1 WEEK. Test Results: Test results from this visit will be discussed in further detail at your follow- up appointment, if applicable.
--- NOTE | 2020-07-30 10:22 | PCM.DC.SUM ---
Discharge Date and Diagnosis - Problem List Patient Problems: Active and Suspected Problems (Last Updated 07/29/20 @ 11:[address] Jose F Heck MD) Hypoglycemia (Acute) Date of Admission: 07/28/20 Date of Discharge: 07/30/20 - Primary Discharge Diagnosis Acute Problems: Active Problems (Last Updated 07/29/20 @ 11:[address] Jose F Heck MD) #1 hypoglycemia, secondary to starvation, patient did not eat for 2 days. #2 chest pain, atypical, ACS ruled out. #3 acute kidney injury, resolved. #4 lactic acidosis, attributed to dehydration and starvation, infection ruled out. #5 elevated D-dimer, CTA without PE or dissection. - Secondary Discharge Diagnosis Chronic Problems: Chronic Problems (Last Updated 07/29/20 @ 11:[address] Jose F Heck MD) Chronic kidney disease (CKD) (Chronic) Hypertension (Chronic) COPD (chronic obstructive pulmonary disease) (Chronic) Depression (Chronic) Hypertension (Chronic) Alcohol dependence (Chronic) Hospital Course and Treatment Imaging Results: 07/30/20 05:55 Nuclear Stress Test - Chemical [NM] AM (NON MEDS) Clinical Impression(s) from Imaging Studies Chest X-Ray 07/28/20 13:04 IMPRESSION: Hyperinflation. The lungs are clear. Electronically Signed: Marty Cam MD at 13:52 EST , Service support , Chest CTA 07/28/20 17:34 IMPRESSION: CTA chest examination, without a demonstrated pulmonary embolism or arterial dissection. No focal infiltrate. Electronically Signed: Maciel Alvarez MD at 19:50 EST , Service support , Operations: None Procedures: EKG, Stress test Summary of Care Provided: Patient seen and examined on the day of discharge and appeared to be stable to be discharged home. She is feeling better, no more chest pain. She complains of headache. Her vital signs are stable. This is a 59 years old female patient presented to the emergency room because of chest pain, palpitation, not feeling well over couple of months, found to have hypoglycemia with blood glucose of 39 g/dL, lactic acidosis/anion gap metabolic acidosis, as well as acute kidney injury in the setting of chronic kidney disease. #1 hypoglycemia: Attributed to starvation, patient did not eat for couple of days, having poor appetite. Treated with IV fluids with D5 percent. She had no history of diabetes. Blood sugar stabilized. #2 chest pain: Atypical, ACS ruled out. EKG reviewed, no acute hemic changes. Troponin was negative x3. CTA chest and chest x-ray was unremarkable. Nuclear stress test done and showed no evidence of stress-induced myocardial ischemia. #3 acute kidney injury: In the setting of chronic kidney disease, her creatinine is been fluctuating significantly over the last couple of years, it has been anywhere from 1 to 3 mg/dL. Admission creatinine is 1.84, treated with IV fluids and creatinine came down to 0.86 upon discharge. Resolved. #4 anion gap metabolic acidosis/lactic acidosis: Secondary to starvation and not eating for couple of days. No evidence of infection. Lactic acid is back to normal with IV fluids. She has been afebrile, other vitals are stable. COVID-19 antigen came back negative. #5 elevated D-dimer: CTA chest without PE or dissection. #6 hypomagnesemia: Replaced and corrected appropriately. #7 alcohol abuse: Patient stated that she quit drinking on October,. Blood alcohol level was less than 3. Urine drug screen was positive for barbiturates. Patient discharged home in a stable condition, discharged on her previous home medications without any changes including mirtazapine and duloxetine for depression, denied suicidal ideations or intentions, recommended follow-up with PCP in 1 week. This note was generated with ngmoco dictation software. It may contain incorrect words, spelling, and punctuation that were not noted in checking the note before signing. Patient Problems: Active and Suspected Problems (Last Updated 07/29/20 @ 11:[address] Jose F Heck MD) Hypoglycemia (Acute) - Physical Exam Vitals/I&O's: Vital Signs Temp Pulse Resp BP Pulse Ox 98.3 F 93 18 151/82 H 97 07/30/20 09:19 07/30/20 09:19 07/30/20 09:19 07/30/20 09:19 07/30/20 09:19 Oxygen Delivery Method Room Air Weight: 143 lb 1.6 oz Body Mass Index (BMI) 23.4 Intake and Output for Last 24 Hours 07/28/20 07/29/20 07/30/20 23:59 23:59 23:59 Intake Total 1522.5 / 1522.5 3475.0 / 3475.0 1000 / 1000 Output Total Balance 1522.5 / 1522.5 3475.0 / 3475.0 999 / 999 General: Alert, Oriented x3, Cooperative, No apparent distress HEENT: Atraumatic, PERRLA, EOMI, Normocephalic Oral: Moist Mucosa, No Gingival or Mucosal Lesions/ Ulcerations Neck: Supple, No JVD, Negative Carotid Bruits, Trachea Midline, Thyroid Normal Size and Texture Lungs: Clear to auscultation, Normal air movement, No rhonchi, No wheeze, No rales Cardiovascular: Regular rate, Regular Rhythm, Normal S1, Normal S2, PMI Normal Abdomen: Bowel Sounds Present, Soft, Non Tender, Non-Distended, No Hepato-splenomegaly Extremities: No clubbing, No cyanosis, No edema Skin: No rashes, No breakdown Lymphatic: No Cervical, Supraclavicular, or Inguinal Adenopathy Neurological: Cranial nerves II-XII grossly intact, Neuro grossly intact Psych/Mental Status: Normal Affect, Appropriate Microbiology Past 72 Hours 07/28/20 12:55 Interface Orders SARS-CoV-2 Antigen (Rapid) - Final Laboratory Results 07/29/20 05:25: Ethyl Alcohol < 3.0 07/30/20 05:52: WBC 6.3, RBC 3.07 L, Hgb 9.3 L, Hct 28.3 L, MCV 92.2, MCH 30.3, MCHC 32.9, RDW Std Deviation 53.5 H, RDW Coeff of Rebeca 15.8 H, Plt Count 180, MPV 8.9, Immature Gran % (Auto) 0.200, Neut % (Auto) 55.1, Lymph % (Auto) 32.7, Richardson % (Auto) 9.3, Eos % (Auto) 2.1, Baso % (Auto) 0.6, Absolute Neuts (auto) 3.5, Absolute Lymphs (auto) 2.07, Nucleated RBC % 0 07/30/20 05:52: Sodium 140, Potassium 3.7, Chloride 109 H, Carbon Dioxide 26.0, Anion Gap 5, BUN 6 L, Creatinine 0.86, Estim Creat Clear Calc 61.57, Est GFR (MDRD) Af Amer 87, Est GFR (MDRD) Non-Af 72, BUN/Creatinine Ratio 7.0 L, Glucose 99, Calcium 7.7 L, Magnesium 1.6 Current Medications Acetaminophen (Acetaminophen 325 Mg Tablet) 650 mg PO Q6H PRN PRN PRN Reason: Pain Score 1-10/Temp > 100.7 F Al Hydroxide/Mg Hydroxide (Mag Hydrox/Al Hydrox/Simeth 30 Ml Udc) 30 ml PO Q6H PRN PRN PRN Reason: Gastric Burning Albuterol Sulfate (Albuterol 2.5 Mg/3 Ml Vial.Neb.) 2.5 mg INHALATION Q4H PRN PRN Reason: SOB &/OR WHEEZING Albuterol/Ipratropium (Ipratropium/Albuterol Sulfate 3 Ml Ampul.Neb) 3 ml INHALATION Q6H.RT [facility] Last Admin: 07/29/20 19:49 Dose: 3 ml Documented by: Amlodipine Besylate (Amlodipine 10 Mg Tablet) 10 mg PO DAILY [facility] Last Admin: 07/30/20 09:23 Dose: 10 mg Documented by: Dicyclomine HCl (Dicyclomine 10 Mg Capsule) 10 mg PO ACHS [facility] Last Admin: 07/30/20 10:20 Dose: 10 mg Documented by: Duloxetine HCl (Duloxetine Hcl 20 Mg Capsule) 20 mg PO DAILY [facility] Last Admin: 07/30/20 09:22 Dose: 20 mg Documented by: Heparin Sodium (Porcine) (Heparin Injection (Vial) 5,000 Unit/Ml Vial) 5,000 unit SC Q12 [facility] Last Admin: 07/30/20 09:22 Dose: 5,000 unit Documented by: Hydroxyzine Pamoate (Hydroxyzine Paulette 25 Mg Capsule) 50 mg PO BID [facility] Last Admin: 07/30/20 09:22 Dose: 50 mg Documented by: Loratadine (Loratadine 10 Mg Tablet) 10 mg PO DAILY PRN PRN Reason: ALLERGIES Mirtazapine (Mirtazapine 15 Mg Tablet) 15 mg PO QHS [facility] Last Admin: 07/29/20 22:12 Dose: 15 mg Documented by: Nicotine (Nicotine 14 Mg Patch) 14 mg TD DAILY [facility] Last Admin: 07/30/20 09:23 Dose: 14 mg Documented by: Nicotine Polacrilex (Nicotine Polacrilex 2 Mg Gum) 2 mg PO Q2H PRN PRN PRN Reason: Nicotine Craving Ondansetron HCl (Ondansetron 4 Mg/2 Ml Vial) 4 mg IV Q8H PRN PRN PRN Reason: NAUSEA/VOMITING Pantoprazole Sodium (Pantoprazole Sodium 40 Mg Tablet) 40 mg PO BID [facility] Last Admin: 07/30/20 09:22 Dose: 40 mg Documented by: Sodium Chloride (0.9% Saline Lock 10 Ml Syringe) 10 - 40 ml IV UD PRN PRN Reason: SALINE FLUSH Tramadol HCl (Tramadol 50 Mg Tablet) 50 mg PO BID PRN PRN PRN Reason: Pain 1-10 Discharge Activity: Return to Normal Activity Return to work on:: 08/03/20 Weight Bearing Status: Weight bearing as tolerated Call your doctor if you observe: Fever of 101 or Higher, Shortness of breath, Dizziness, Fainting spells, Chest pain, Increased palpitations (irregular heartbeat), Uncontrolled pain Home Medications: Medications to take at Discharge loratadine 10 mg tablet 10 mg PO DAILY PRN 04/04/18 Fluticasone/Vilanterol [Breo Ellipta 100-25 Mcg INH] 1 puff INHALATION DAILY 07/16/18 Albuterol Sulfate [Ventolin Hfa] 2 puff IH Q4H PRN 11/16/18 Mirtazapine 15 mg PO QHS 11/16/18 Dicyclomine HCl [Bentyl] 10 mg PO ACHS 10/17/19 Hydroxyzine HCl 50 mg PO BID 10/17/19 Pantoprazole Sodium [Protonix] 40 mg PO BID 10/17/19 Amlodipine [Norvasc] 10 mg PO DAILY 07/28/20 Duloxetine HCl 20 mg PO DAILY 07/28/20 Lisinopril [Zestril] 10 mg PO DAILY 07/28/20 Tramadol HCl [Ultram] 50 mg PO BID PRN PRN 07/28/20 Primary Care Physician: Kellie Delarosa DO [Primary Care Provider] - Please follow up with your Primary Care Physician in: 1 WEEK. Disposition: Home Minutes spent on discharge:: 32 Patient Condition:: Stable Medical Necessity - Tobacco Use Smoking Status: Current every day smoker Tobacco Use: Cigarettes Meaningful Use Info Meaningful Use Diagnoses (Choose all that apply): None applicable Inpatient E&M: 82992 Disch Hosp
--- NOTE | 2020-07-30 10:22 | PHA.DC.MR ---
Pharmacy Service has performed discharge medication reconciliation for this patient. The patient's discharge medication list was reviewed for discrepancies and discrepancies were resolved. Home Medications loratadine 10 mg tablet 10 mg PO DAILY PRN 04/04/18 Fluticasone/Vilanterol [Breo Ellipta 100-25 Mcg INH] 1 puff INHALATION DAILY 07/16/18 Albuterol Sulfate [Ventolin Hfa] 2 puff IH Q4H PRN 11/16/18 Mirtazapine 15 mg PO QHS 11/16/18 Dicyclomine HCl [Bentyl] 10 mg PO ACHS 10/17/19 Hydroxyzine HCl 50 mg PO BID 10/17/19 Pantoprazole Sodium [Protonix] 40 mg PO BID 10/17/19 Amlodipine [Norvasc] 10 mg PO DAILY 07/28/20 Duloxetine HCl 20 mg PO DAILY 07/28/20 Lisinopril [Zestril] 10 mg PO DAILY 07/28/20 Tramadol HCl [Ultram] 50 mg PO BID PRN PRN 07/28/20
== END 2020-07-30 11:30 | disposition home or self-care (01) | DRG 424 ==
LOC: ED 15:48 → PCU 16:05
PROVIDERS: Admitting Provider Internal Medicine; Emergency Provider Emergency Medicine; PCP Family Medicine; Visit Provider Hospitalist
DX: E16.2 Hypoglycemia, unspecified (principal); T73.0XXA Starvation, initial encounter; N17.9 Acute kidney failure, unspecified; R07.89 Other chest pain; E86.0 Dehydration; E87.2 Acidosis; R00.0 Tachycardia, unspecified; J44.9 Chronic obstructive pulmonary disease, unspecified; I12.9 Hypertensive chronic kidney disease with stage 1 through stage 4 chronic kidney disease, or unspecified chronic kidney disease; N18.9 Chronic kidney disease, unspecified; F31.9 Bipolar disorder, unspecified; F41.9 Anxiety disorder, unspecified; F17.210 Nicotine dependence, cigarettes, uncomplicated; F10.21 Alcohol dependence, in remission; E83.42 Hypomagnesemia; Z79.51 Long term (current) use of inhaled steroids; Z79.899 Other long term (current) drug therapy
CPT/HCPCS: 36415; 71045; 71275; 78452; 80048; 80053; 80076; 80307; 82077; 82962; 83605; 83735; 84443; 84484; 85025; 85379; 87426; 93005; 93017; 94640; 96361; 96372; 96374; 97162; 97166; 99218; 99251; 99285; 99406; A9500; J7030; Q9967; A4216; G0378; G0463; J2405; J2785

== ENCOUNTER 2020-11-05 13:05 | Emergency (ER) | payer MEDICAID, SELFPAY ==
[2020-07-28 16:48] VITALS: BMI 23.4
[2020-11-05] VITALS (8 sets, daily range): BP systolic 118–144; BP diastolic 62–111; PULSE 66–120; RESP 14–25; TEMP 36.2; O2SAT 95–98; BMI 23.3
--- NOTE | 2020-11-05 14:09 | CT_ITS ---
STUDY: CT BRAIN WITHOUT CONTRAST REASON FOR EXAM: Female, 60 years old. Change in Mental Status RADIATION DOSAGE (If Supplied By Facility): CTDIvol = ( 44.99 ) mGy, DLP = ( 779.24 ) mGycm TECHNIQUE: Transaxial CT imaging of the brain was performed without administration of intravenous contrast material. Individualized dose optimization techniques were used for this CT. COMPARISON: 12/05/2018 FINDINGS: Normal soft tissue structures. Normal calvarium. There is mild cerebral atrophy with widening of the extra-axial spaces and ventricular dilatation. Normal white matter tracts of the cerebral hemispheres. There are small punctate calcifications of the basal ganglia which are seen in the aging brain as a normal variant. Normal brainstem. Normal cerebellum. There is no intracranial hemorrhage. There are no findings of an acute ischemic infarction. Normal visualized paranasal sinuses. CT/Brain/Head without Contrast IMPRESSION: Chronic involutional changes of the brain. Electronically Signed: Irineo Maurer MD at 17:11 EDT Tel , Service support ,
--- NOTE | 2020-11-05 14:09 | EKG12_ITS ---
Test Reason : Blood Pressure : / mmHG Vent. Rate : 101 BPM Atrial Rate : 101 BPM P-R Int : 156 ms QRS Dur : 076 ms QT Int : 360 ms P-R-T Axes : 081 089 086 degrees QTc Int : 466 ms Sinus tachycardia Otherwise normal ECG Confirmed by PATRICE NARVAEZ, IVETT ([id number]), editor map MARLYN NAVARRO ([id number]) on 11/09/2020 12:27:59 PM Referred By: DORA Confirmed By:IVETT IBRAHIM MD
[2020-11-05 14:32] LABS: Absolute Lymphocyte Count 2.22 X10^3/uL (0.83-4.51); Absolute Neutrophil Count 4.1 X10^3/uL (2.0-7.7); Basophil# 0.04 X10^3/uL; Basophil% 0.6 % (0-1); Eosinophil# 0.01 X10^3/uL; Eosinophils% 0.1 % (0-5); Hematocrit 35.8 % (37-47); Hemoglobin 12.1 g/dL (12.0-15.0); Lymphocyte # 2.22 X10^3/ul (0.83-4.51); Lymphocyte % 32.8 % (19-41); Mean Corp Hgb Conc 33.8 g/dL (32-36); Mean Corpuscular Hgb 30.9 pg (27.0-32.0); Mean Corpuscular Volume 91.6 fL (81-99); Mean Platelet Vol. 8.6 fl (6.2-12.0); Monocyte% 5.9 % (0-10); NRBC Flagged by Analyzer 0 % (0-5); Neutrophil # 4.07 X10^3/uL (2.7-7.7); Neutrophil % 60.3 % (47-70); Platelet Count 397 K/mm3 (150-450); RBC Distribution Width SD 49.7 fl (35.1-43.9); Red Blood Count 3.91 M/mm3 (4.2-5.4); White Blood Count 6.8 K/mm3 (4.4-11.0)
[2020-11-05 14:51] LABS: ALB/GLOB Ratio 0.9 RATIO (0.9-2.4); AST(SGOT) 49 U/L (15-37); Alanine Aminotransfer ALT/SGPT 36 U/L (13-56); Albumin, Serum 3.7 g/dL (3.2-5.0); Alkaline Phosphatase 81 U/L (45-117); Anion Gap 16 (5-15); BUN 18 mg/dL (7-18); BUN/Creat Ratio 14.3 RATIO (10-20); CPK Total, Creatine Kinase 143 U/L (26-192); Calcium,Total 8.9 mg/dL (8.5-10.1); Chloride 91 mmol/L (98-107); Creatinine, Serum 1.26 mg/dL (0.55-1.02); EST Glomerular Filtration Rate 46 mL/min (>60); Est Glom Filt Rate - Afr Amer 56 mL/min (>60); Globulin 4.2 g/dL (2.2-4.2); Glucose 62 mg/dL (74-106); Potassium 4.5 mmol/L (3.5-5.1); Protein, Total 7.9 g/dL (6.4-8.2); Sodium Level 129 mmol/L (136-145)
[2020-11-05] MEDS: Ziprasidone IM 20 MG/ML VIAL IM (15:26)
[2020-11-05 15:37] LABS: Bacteria 0 SEEN /hpf (None Seen); Mucous, Urine 0 SEEN /hpf (<or=2+); Red Blood Cells-Urine 0 SEEN /hpf (0-5); White Blood Cells 0 SEEN /hpf (0-5)
--- NOTE | 2020-11-05 15:39 | ED.RN ---
ETOH 364. DR ANDERSEN
[2020-11-05 15:42] LABS: Color, Urine Yellow (Yellow); Glucose, Dipstick Normal (Normal); Leukocyte Esterase-Dipstick Negative /ul (Negative); Nitrite-Dipstick Negative (Negative); Occult Blood-Urine 25 /ul (Negative); Protein-Dipstick 30 mg/dl (Negative); Specific Gravity, Urine 1.015 (1.002-1.030); Urine Bilirubin Dipstick Negative (Negative); Urine Clarity Clear (Clear); Urine Urobilinogen Normal (Normal)
[2020-11-05 15:50] LABS: Amphetamine Urine VISTA NEGATIVE (<1000 ng/mL); Barbiturate Urine VISTA NEGATIVE (< 200 ng/mL); Benzodiazepine Urine VISTA NEGATIVE (< 200 ng/mL); Cocaine Urine VISTA NEGATIVE (< 300 ng/mL); Ecstacy Urine VISTA NEGATIVE (< 500 ng/mL); Methadone Urine VISTA NEGATIVE (< 300 ng/mL); PCP Urine VISTA NEGATIVE (< 25 ng/mL); THC Urine VISTA NEGATIVE (< 50 ng/mL); Vista UDS pH Range 5
[2020-11-05 16:02] LABS: Ketone-Dipstick 150 mg/dl (Negative)
[2020-11-05 16:10] LABS: Squamous Epithelial Cells - UA 0-5 SEEN /hpf (5-10)
[2020-11-05] MEDS: LORazepam 2 MG/ML Syringe 1 MG IV (16:25)
[2020-11-05] MEDS: DiphenhydrAMINE 50 MG/ML Syringe IV (16:25)
--- NOTE | 2020-11-05 16:57 | EDS_ITS ---
[facility] <Dr. Sadia Hawk DO - Last Filed: 11/05/20 18:00> History of Present Illness Chief Complaint: ETOH Intox Narrative Narrative: Patient is 60-year-old female presenting via EMS for intoxication and combativeness. Patient was found at a hotel room. She had 2 bottles of vodka that were empty around her. Patient was combative for EMS. She is not able to provide further history. She denies any complaints. She denies any coingestions. She does admit to drinking alcohol. She denies any injuries and has no pain. [facility] <Dr. Sadia Hawk DO - Last Filed: 11/05/20 18:00> [facility] Medical History (Updated 11/05/20 @ 17:[address] Sadia Hawk DO) Abnormal mammogram Anxiety Bipolar 1 disorder COPD (chronic obstructive pulmonary disease) Hepatotoxicity, secondary to ETOH Insomnia Home Medications loratadine 10 mg tablet 10 mg PO DAILY PRN 04/04/18 [History Last Taken 07/27/20] fluticasone furoate-vilanterol 1 puff INHALATION DAILY 07/16/18 [History Last Taken 07/27/20] albuterol sulfate 2 puff IH Q4H PRN 11/16/18 [History Last Taken 07/28/20] mirtazapine 15 mg PO QHS 11/16/18 [History Last Taken 07/27/20] dicyclomine 10 mg PO ACHS 10/17/19 [History Last Taken 07/27/20] hydroxyzine HCl 50 mg PO BID 10/17/19 [History Last Taken 07/27/20] pantoprazole 40 mg PO BID 10/17/19 [History Last Taken 07/27/20] amlodipine 10 mg PO DAILY 07/28/20 [History Last Taken Unknown] duloxetine 20 mg PO DAILY 07/28/20 [History Last Taken 07/27/20] lisinopril 10 mg PO DAILY 07/28/20 [History Last Taken 07/27/20] tramadol 50 mg PO BID PRN PRN 07/28/20 [History Last Taken Unknown] Allergy/AdvReac Type Severity Reaction Status Date / Time Penicillins Allergy WEAKNESS,VISION Verified 07/28/20 12:53 ISSUES Family History Mother Hypertension Thyroid disorder CVA (cerebral vascular accident) Sister Heart disease Surgical History History of History of hysterectomy Social History (Updated 12/17/18 @ 08:[address] Mary Miranda MD) Smoking Status: Current every day smoker substance use type: does not use ROS <Dr. Sadia Hawk DO - Last Filed: 11/05/20 18:00> ROS ED Review of Systems ROS Unobtainable: due to encephalopathy EXAM <Dr. Sadia Hawk DO - Last Filed: 11/05/20 18:00> Physical Exam Const Vital Signs: 11/05/20 13:08 11/05/20 15:16 11/05/20 16:00 Temperature 97.2 F L Temperature Source Temporal Pulse Rate 103 H 120 H 105 H Respiratory Rate 14 20 H 20 H Blood Pressure 144/96 H 126/111 H 122/70 H Blood Pressure Mean 112 116 87 Pulse Ox 98 97 96 Oxygen Delivery Method Room Air Room Air Room Air 11/05/20 17:00 11/05/20 18:00 11/05/20 19:31 Temperature Temperature Source Pulse Rate 105 H 104 H Respiratory Rate 25 H 16 16 Blood Pressure 118/62 122/71 H Blood Pressure Mean 80 88 Pulse Ox 95 96 Oxygen Delivery Method Room Air Room Air 11/05/20 20:00 Temperature Temperature Source Pulse Rate Respiratory Rate 16 Blood Pressure Blood Pressure Mean Pulse Ox Oxygen Delivery Method Positive well nourished and well developed General Appearance ED: well developed HEENT HEENT Narrative: Patient does not cooperate with TM exam. atraumatic; Negative for tenderness Eyes EOMs intact bilaterally Eyes Narrative: Pupils are 6 mm bilaterally, minimally responsive Neck supple and no JVD Thyroid: Negative for tender Chest Wall inspection of chest normal Resp normal respiratory effort and clear to auscultation bilaterally Cardio regular rate, regular rhythm and no murmurs GI soft to palpation and non-tender Extremity Extremity Narrative: No obvious deformity General Extremety ED: Negative for edema or tenderness General Extremity: Negative for edema Neuro no sensory deficits noted Sensorium / Orientation: alert and stuporous Motor Exam: strength 5/5 throughout; Negative for general weakness Psych Attitude: belligerent Skin General Skin Exam: Negative for jaundice Lesions: no lesions Rashes: no rashes <Dr. Tad Keita MD - Last Filed: 11/05/20 21:56> Physical Exam Const Vital Signs: 11/05/20 13:08 11/05/20 15:16 11/05/20 16:00 Temperature 97.2 F L Temperature Source Temporal Pulse Rate 103 H 120 H 105 H Respiratory Rate 14 20 H 20 H Blood Pressure 144/96 H 126/111 H 122/70 H Blood Pressure Mean 112 116 87 Pulse Ox 98 97 96 Oxygen Delivery Method Room Air Room Air Room Air 11/05/20 17:00 11/05/20 18:00 11/05/20 19:31 Temperature Temperature Source Pulse Rate 105 H 104 H Respiratory Rate 25 H 16 16 Blood Pressure 118/62 122/71 H Blood Pressure Mean 80 88 Pulse Ox 95 96 Oxygen Delivery Method Room Air Room Air 11/05/20 20:00 Temperature Temperature Source Pulse Rate Respiratory Rate 16 Blood Pressure Blood Pressure Mean Pulse Ox Oxygen Delivery Method MDM <Dr. Sadia Hawk DO - Last Filed: 11/05/20 18:00> [facility] MDM Narrative Medical decision making narrative: Patient evaluated for acute intoxication. Patient is belligerent and not redirectable. She is at risk of harming himself and staff. She is placed in hard restraints. Patient is sedated with Geodon and then Ativan and Benadryl. She does not have any focal neurologic deficits. Work-up is notable for ketonuria and mild hyponatremia. I do not think either of these explain her presentation. CT of the brain does not show any acute process. Patient's blood alcohol level is significantly elevated. Likely she is encephalopathy is secondary to acute alcohol intoxication. Patient be monitored until clinically sober and then reevaluated. She is signed out to oncoming provider pending reevaluation and for final disposition. Lab Data Labs: Laboratory Results - last 24 hr 11/05/20 11/05/20 11/05/20 14:05 14:05 14:25 WBC 6.8 RBC 3.91 L Hgb 12.1 Hct 35.8 L MCV 91.6 MCH 30.9 MCHC 33.8 RDW Std Deviation 49.7 H RDW Coeff of Rebeca 15.0 H Plt Count 397 MPV 8.6 Immature Gran % (Auto) 0.300 Neut % (Auto) 60.3 Lymph % (Auto) 32.8 Slope % (Auto) 5.9 Eos % (Auto) 0.1 Baso % (Auto) 0.6 Absolute Neuts (auto) 4.1 Absolute Lymphs (auto) 2.22 Nucleated RBC % 0 Sodium Potassium Chloride Carbon Dioxide Anion Gap BUN Creatinine Estim Creat Clear Calc Est GFR (MDRD) Af Amer Est GFR (MDRD) Non-Af BUN/Creatinine Ratio Glucose Calcium Total Bilirubin AST ALT Alkaline Phosphatase Total Creatine Kinase Total Protein Albumin Globulin Albumin/Globulin Ratio Urine Color Yellow Urine Clarity Clear Urine pH 6.0 Ur Specific [place] 1.015 Urine Protein 30 H Urine Glucose (UA) Normal Urine Ketones 150 H Urine Occult Blood 25 H Urine Nitrite Negative Urine Bilirubin Negative Urine Urobilinogen Normal Ur Leukocyte Esterase Negative Urine RBC 0 SEEN Urine WBC 0 SEEN Ur Squamous Epith Cells 0-5 SEEN Urine Bacteria 0 SEEN Urine Mucus 0 SEEN Urine Opiates Screen NEGATIVE Urine Methadone Screen NEGATIVE Ur Barbiturates Screen NEGATIVE Ur Phencyclidine Scrn NEGATIVE Ur Amphetamines Screen NEGATIVE U Methamphetamin-MDMA NEGATIVE U Benzodiazepines Scrn NEGATIVE Urine Cocaine Screen NEGATIVE U Cannabinoids Screen NEGATIVE Ur Drug Screen Comment Ethyl Alcohol 11/05/20 11/05/20 14:25 14:25 WBC RBC Hgb Hct MCV MCH MCHC RDW Std Deviation RDW Coeff of Rebeca Plt Count MPV Immature Gran % (Auto) Neut % (Auto) Lymph % (Auto) Slope % (Auto) Eos % (Auto) Baso % (Auto) Absolute Neuts (auto) Absolute Lymphs (auto) Nucleated RBC % Sodium 129 L Potassium 4.5 Chloride 91 L Carbon Dioxide 22.0 Anion Gap 16 H BUN 18 Creatinine 1.26 H Estim Creat Clear Calc 45.00 Est GFR (MDRD) Af Amer 56 L Est GFR (MDRD) Non-Af 46 L BUN/Creatinine Ratio 14.3 Glucose 62 L Calcium 8.9 Total Bilirubin 0.40 AST 49 H ALT 36 Alkaline Phosphatase 81 Total Creatine Kinase 143 Total Protein 7.9 Albumin 3.7 Globulin 4.2 Albumin/Globulin Ratio 0.9 Urine Color Urine Clarity Urine pH Ur Specific [place] Urine Protein Urine Glucose (UA) Urine Ketones Urine Occult Blood Urine Nitrite Urine Bilirubin Urine Urobilinogen Ur Leukocyte Esterase Urine RBC Urine WBC Ur Squamous Epith Cells Urine Bacteria Urine Mucus Urine Opiates Screen Urine Methadone Screen Ur Barbiturates Screen Ur Phencyclidine Scrn Ur Amphetamines Screen U Methamphetamin-MDMA U Benzodiazepines Scrn Urine Cocaine Screen U Cannabinoids Screen Ur Drug Screen Comment Ethyl Alcohol 364.0 H* Radiography Diagnostic Testing: Radiology Impression Brain CT 11/05/20 14:09 IMPRESSION: Chronic involutional changes of the brain. Electronically Signed: Irineo Maurer MD at 17:11 EDT Tel , Service support , Chest X-Ray 11/05/20 17:00 IMPRESSION: Normal x-ray examination of the chest. Electronically Signed: Irineo Muarer MD at 17:12 EDT Tel , Service support , Rhythm Strip Rhythm Strip: Sinus Rhythm Rate: 101 Ectopy: None EKG Initial EKG: Attestation: I personally reviewed and interpreted this EKG as follows: Interpretation: Sinus Tachycardia Comments: Sinus tachycardia rate of 101 Normal axis Normal intervals Normal ST segments <Dr. Tad Keita MD - Last Filed: 11/05/20 21:56> MDM MDM Narrative Medical decision making narrative: Patient was observed. Her mental status was improving. She was able to arrange a sober ride. The patient will be discharged at this time. Lab Data Labs: Laboratory Results - last 24 hr 11/05/20 11/05/20 11/05/20 14:05 14:05 14:25 WBC 6.8 RBC 3.91 L Hgb 12.1 Hct 35.8 L MCV 91.6 MCH 30.9 MCHC 33.8 RDW Std Deviation 49.7 H RDW Coeff of Rebeca 15.0 H Plt Count 397 MPV 8.6 Immature Gran % (Auto) 0.300 Neut % (Auto) 60.3 Lymph % (Auto) 32.8 Slope % (Auto) 5.9 Eos % (Auto) 0.1 Baso % (Auto) 0.6 Absolute Neuts (auto) 4.1 Absolute Lymphs (auto) 2.22 Nucleated RBC % 0 Sodium Potassium Chloride Carbon Dioxide Anion Gap BUN Creatinine Estim Creat Clear Calc Est GFR (MDRD) Af Amer Est GFR (MDRD) Non-Af BUN/Creatinine Ratio Glucose Calcium Total Bilirubin AST ALT Alkaline Phosphatase Total Creatine Kinase Total Protein Albumin Globulin Albumin/Globulin Ratio Urine Color Yellow Urine Clarity Clear Urine pH 6.0 Ur Specific [place] 1.015 Urine Protein 30 H Urine Glucose (UA) Normal Urine Ketones 150 H Urine Occult Blood 25 H Urine Nitrite Negative Urine Bilirubin Negative Urine Urobilinogen Normal Ur Leukocyte Esterase Negative Urine RBC 0 SEEN Urine WBC 0 SEEN Ur Squamous Epith Cells 0-5 SEEN Urine Bacteria 0 SEEN Urine Mucus 0 SEEN Urine Opiates Screen NEGATIVE Urine Methadone Screen NEGATIVE Ur Barbiturates Screen NEGATIVE Ur Phencyclidine Scrn NEGATIVE Ur Amphetamines Screen NEGATIVE U Methamphetamin-MDMA NEGATIVE U Benzodiazepines Scrn NEGATIVE Urine Cocaine Screen NEGATIVE U Cannabinoids Screen NEGATIVE Ur Drug Screen Comment Ethyl Alcohol 11/05/20 11/05/20 14:25 14:25 WBC RBC Hgb Hct MCV MCH MCHC RDW Std Deviation RDW Coeff of Rebeca Plt Count MPV Immature Gran % (Auto) Neut % (Auto) Lymph % (Auto) Slope % (Auto) Eos % (Auto) Baso % (Auto) Absolute Neuts (auto) Absolute Lymphs (auto) Nucleated RBC % Sodium 129 L Potassium 4.5 Chloride 91 L Carbon Dioxide 22.0 Anion Gap 16 H BUN 18 Creatinine 1.26 H Estim Creat Clear Calc 45.00 Est GFR (MDRD) Af Amer 56 L Est GFR (MDRD) Non-Af 46 L BUN/Creatinine Ratio 14.3 Glucose 62 L Calcium 8.9 Total Bilirubin 0.40 AST 49 H ALT 36 Alkaline Phosphatase 81 Total Creatine Kinase 143 Total Protein 7.9 Albumin 3.7 Globulin 4.2 Albumin/Globulin Ratio 0.9 Urine Color Urine Clarity Urine pH Ur Specific [place] Urine Protein Urine Glucose (UA) Urine Ketones Urine Occult Blood Urine Nitrite Urine Bilirubin Urine Urobilinogen Ur Leukocyte Esterase Urine RBC Urine WBC Ur Squamous Epith Cells Urine Bacteria Urine Mucus Urine Opiates Screen Urine Methadone Screen Ur Barbiturates Screen Ur Phencyclidine Scrn Ur Amphetamines Screen U Methamphetamin-MDMA U Benzodiazepines Scrn Urine Cocaine Screen U Cannabinoids Screen Ur Drug Screen Comment Ethyl Alcohol 364.0 H* Radiography Diagnostic Testing: Radiology Impression Brain CT 11/05/20 14:09 IMPRESSION: Chronic involutional changes of the brain. Electronically Signed: Irineo Maurer MD at 17:11 EDT Tel , Service support , Chest X-Ray 11/05/20 17:00 IMPRESSION: Normal x-ray examination of the chest. Electronically Signed: Irineo Maurer MD at 17:12 EDT Tel , Service support , Discharge Plan Triage Chief Complaint: ETOH Intox ED Provider: Tad Keita Dx/Rx/DC Orders Clinical Impression: Alcohol intoxication delirium Instructions: ED Alcohol Intoxication Prescriptions: No Action loratadine [Claritin] 10 mg tablet 10 mg PO DAILY PRN (Reason: Allergies) RF: 0 fluticasone furoate-vilanterol 1 EACH blister with device 1 puff inhalation DAILY RF: 0 mirtazapine 15 tablet 15 mg PO QHS RF: 0 albuterol sulfate 18 GM HFA aerosol inhaler 2 puff IH Q4H PRN (Reason: Sob &/Or Wheezing) RF: 0 hydroxyzine HCl 50 MG tablet 50 mg PO BID RF: 0 dicyclomine 10 MG capsule 10 mg PO ACHS RF: 0 pantoprazole 40 MG tablet 40 mg PO BID RF: 0 tramadol 50 MG tablet 50 mg PO BID PRN PRN (Reason: Pain 1-10 Or Fever) RF: 0 amlodipine 10 MG tablet 10 mg PO DAILY RF: 0 lisinopril 10 MG tablet 10 mg PO DAILY RF: 0 duloxetine 20 MG capsule,delayed release(DR/EC) 20 mg PO DAILY RF: 0 Primary Care Provider: Kellie Delarosa Referrals: Kellie Delarosa DO [Primary Care Provider] -
--- NOTE | 2020-11-05 17:00 | RAD_ITS ---
STUDY: X-RAY CHEST REASON FOR EXAM: Female, 60 years old. AMS TECHNIQUE: Single AP portable view of the chest. COMPARISON: 07/28/2020 FINDINGS: The lungs are clear and expanded. There is no demonstrated pleural abnormality. Normal size heart. Normal mediastinum and liam. Normal visualized pulmonary arteries. Normal visualized aortic arch and descending thoracic aorta. Normal visualized thoracic spine. Normal visualized ribs, clavicles, and shoulders. There is no demonstrated abnormality of the visualized soft tissue structures of the upper abdomen. RAD/Chest 1 View (Portable) IMPRESSION: Normal x-ray examination of the chest. Electronically Signed: Irineo Maurer MD at 17:12 EDT Tel , Service support ,
--- NOTE | 2020-11-05 22:05 | ED.RN ---
patient physically walked to waiting family in car, patient awake and able to walk without any assistance, family member will be patient the rest of the night
== END 2020-11-05 22:06 | disposition home or self-care (01) ==
PROVIDERS: Emergency Medicine; Emergency Provider Emergency Medicine; PCP Family Medicine
DX: F10.129 Alcohol abuse with intoxication, unspecified (principal); F17.200 Nicotine dependence, unspecified, uncomplicated
CPT/HCPCS: 70450; 71045; 80048; 80053; 80307; 81001; 82077; 82550; 85025; 93005; 96372; 96374; 96375; 99285; A4216; J3486

== ENCOUNTER 2020-12-31 21:28 | Observation (INO) | payer MEDICAID, SELFPAY ==
[2020-11-05 13:08] VITALS: BMI 23.3
[2020-12-31 21:31] VITALS: BP 77/53; PULSE 111; RESP 15; TEMP 36.9; O2SAT 94
[2020-12-31 21:45] VITALS: O2SAT 88; O2SAT 98
[2020-12-31 22:15] VITALS: BP 96/56; PULSE 100
--- NOTE | 2020-12-31 22:19 | EKG12_ITS ---
Test Reason : DYSRHYTHMIA Blood Pressure : / mmHG Vent. Rate : 095 BPM Atrial Rate : 095 BPM P-R Int : 184 ms QRS Dur : 072 ms QT Int : 366 ms P-R-T Axes : 083 090 091 degrees QTc Int : 459 ms AGE AND GENDER SPECIFIC ECG ANALYSIS Normal sinus rhythm Rightward axis Septal infarct , age undetermined Consider right ventricular involvement in acute inferior infarct Abnormal ECG Confirmed by LUIZ NARVAEZ, LAYLA ([id number]), film editor supervisor MARLYN NAVARRO ([id number]) on 01/01/2021 1:01:32 PM Referred By: ALEX Confirmed By:LAYLA DEE MD
--- NOTE | 2020-12-31 22:20 | EDS_ITS ---
HPI History of Present Illness Chief Complaint: General Illness Narrative Narrative: 60-year-old female with history of EtOH abuse, depression, COPD, hypertension, CKD presenting with weakness. She states is been unable to eat significant amounts of food over the last month. She is eating some. She does complain of diffuse abdominal cramping. She states that yesterday she was drinking and then quickly states I have not been drinking. She denies being an everyday drinker. Has not had a fever or chills. She denies urinary complaints. She is denying chest pain or shortness of breath. Patient states that she was treated for shingles about a month ago and after this treatment she just has not felt well. [facility] Medical History Abnormal mammogram Anxiety Bipolar 1 disorder COPD (chronic obstructive pulmonary disease) Hepatotoxicity, secondary to ETOH Insomnia Home Medications loratadine 10 mg tablet 10 mg PO DAILY PRN 04/04/18 [History Last Taken 07/27/20] fluticasone furoate-vilanterol 1 puff INHALATION DAILY 07/16/18 [History Last Taken 07/27/20] albuterol sulfate 2 puff IH Q4H PRN 11/16/18 [History Last Taken 07/28/20] mirtazapine 15 mg PO QHS 11/16/18 [History Last Taken 07/27/20] dicyclomine 10 mg PO ACHS 10/17/19 [History Last Taken 07/27/20] hydroxyzine HCl 50 mg PO BID 10/17/19 [History Last Taken 07/27/20] pantoprazole 40 mg PO BID 10/17/19 [History Last Taken 07/27/20] amlodipine 10 mg PO DAILY 07/28/20 [History Last Taken Unknown] duloxetine 20 mg PO DAILY 07/28/20 [History Last Taken 07/27/20] lisinopril 10 mg PO DAILY 07/28/20 [History Last Taken 07/27/20] tramadol 50 mg PO BID PRN PRN 07/28/20 [History Last Taken Unknown] Allergy/AdvReac Type Severity Reaction Status Date / Time Penicillins Allergy WEAKNESS,VISION Verified 12/31/20 21:30 ISSUES Family History Mother Hypertension Thyroid disorder CVA (cerebral vascular accident) Sister Heart disease Surgical History History of History of hysterectomy Social History (Updated 12/17/18 @ 08:[address] Mary Miranda MD) Smoking Status: Current every day smoker tobacco type: cigarettes substance use type: does not use ROS ROS ED Constitutional Constitutional ED: Denies chills or fever(s) Eyes Eyes: Denies blurry vision or change in vision ENT ENT ED: Denies ear pain or rhinorrhea Cardiovascular Cardiovascular: Denies chest pain or palpitations Respiratory/Chest Respiratory/Chest: Denies cough or dyspnea Gastrointestinal Gastrointestinal: Reports abdominal pain and nausea; Denies constipation or diarrhea Genitourinary Genitourinary ED: Denies dysuria or hematuria Musculoskeletal Musculoskeletal: Denies arthralgias or myalgias Integumentary Denies abscess or rash Neurologic Neurologic: Denies headache(s) EXAM Physical Exam Const Vital Signs: 12/31/20 21:31 12/31/20 21:35 12/31/20 21:45 Temperature 98.5 F Temperature Source Temporal Pulse Rate 111 H Respiratory Rate 15 Respiratory Effort Normal Non-Labored Respiratory Pattern Normal Blood Pressure 77/53 L Blood Pressure Mean 61 Pulse Ox 94 98 Oxygen Delivery Method Room Air Nasal Cannula Oxygen Flow Rate (L/min) 2 12/31/20 22:15 12/31/20 22:26 12/31/20 23:13 Temperature 97.8 F Temperature Source Temporal Pulse Rate 100 104 H Respiratory Rate 16 Respiratory Effort Respiratory Pattern Blood Pressure 96/56 L 94/55 L Blood Pressure Mean 69 68 Pulse Ox 96 Oxygen Delivery Method Nasal Cannula Nasal Cannula Oxygen Flow Rate (L/min) 2 2 12/31/20 23:32 Temperature Temperature Source Pulse Rate Respiratory Rate Respiratory Effort Respiratory Pattern Blood Pressure 93/48 L Blood Pressure Mean 63 Pulse Ox Oxygen Delivery Method Oxygen Flow Rate (L/min) Positive well nourished General Appearance ED: other Hypotensive but speaking in full sentences with normal mentation HEENT Reports moist mucous membranes Negative for trauma Eyes PERRL and EOMs intact bilaterally General Eye ED: Negative for scleral icterus Resp normal respiratory effort and clear to auscultation bilaterally GI normal to inspection, nondistended, normoactive bowel sounds Extremity normal to inspection General Extremety ED: Negative for edema General Extremity: Negative for edema Neuro oriented x3 Sensorium / Orientation: alert Psych mental status grossly normal Skin no rashes or lesions noted and no wounds MDM MDM MDM Narrative Medical decision making narrative: Patient presenting with hypotension and appears to have had one episode of hypoxia and was placed on oxygen. She not complaining of shortness of breath. Patient stated initially she drank yesterday and then states she had not been drinking however her alcohol is over 300. EKG performed on arrival is sinus rhythm at 95 beats a minute without ST elevation or depression as interpreted by myself. Chest x-ray is interpreted by myself shows no acute cardiopulmonary process. Sepsis labs were ordered and patient was given IV fluids. Her pressures did respond. Patient found to have YADIRA, lactic acidosis of 3.9. Patient does not have a white blood cell count. Her H&H are stable. Platelets are normal. Sodium is slightly low at 127. she has an anion gap of 23 which is likely due to to a starvation ketosis. Urinalysis is negative for infection. Urine drug screen is negative. Coagulation studies are normal. Patient discussed with hospitalist who agreed to admit the patient for hydration and monitoring. Patient stable on admission. Impression: 1. Hypotension 2. Acute kidney injury 3. EtOH intoxication 4. Lactic acidosis Lab Data Labs: Laboratory Results - last 24 hr 12/31/20 12/31/20 12/31/20 21:33 21:33 21:33 WBC 9.8 RBC 3.73 L Hgb 11.7 L Hct 34.0 L MCV 91.2 MCH 31.4 MCHC 34.4 RDW Std Deviation 46.5 H RDW Coeff of Rebeca 13.9 Plt Count 254 MPV 9.0 Immature Gran % (Auto) 0.500 Neut % (Auto) 76.9 H Lymph % (Auto) 15.7 L [place] % (Auto) 6.5 Eos % (Auto) 0.3 Baso % (Auto) 0.1 Absolute Neuts (auto) 7.5 Absolute Lymphs (auto) 1.54 Nucleated RBC % 0 PT INR APTT Sodium 127 L Potassium 4.1 Chloride 88 L Carbon Dioxide 16.0 L Anion Gap 23 H BUN 23 H Creatinine 1.87 H Estim Creat Clear Calc 27.05 Est GFR (MDRD) Af Amer 35 L Est GFR (MDRD) Non-Af 29 L BUN/Creatinine Ratio 12.3 Glucose 58 L Lactic Acid 3.9 H* Calcium 8.6 Total Bilirubin 0.50 AST 54 H ALT 35 Alkaline Phosphatase 79 Troponin I High Sens 8.6 Total Protein 7.2 Albumin 3.5 Globulin 3.7 Albumin/Globulin Ratio 0.9 Urine Color Urine Clarity Urine pH Ur Specific [place] Urine Protein Urine Glucose (UA) Urine Ketones Urine Occult Blood Urine Nitrite Urine Bilirubin Urine Urobilinogen Ur Leukocyte Esterase Urine RBC Urine WBC Ur Squamous Epith Cells Ur Transition Epith Cell Urine Bacteria Urine Mucus Urine Opiates Screen Urine Methadone Screen Ur Barbiturates Screen Ur Phencyclidine Scrn Ur Amphetamines Screen U Methamphetamin-MDMA U Benzodiazepines Scrn Urine Cocaine Screen U Cannabinoids Screen Ur Drug Screen Comment Ethyl Alcohol 12/31/20 12/31/20 12/31/20 21:33 22:15 22:15 WBC RBC Hgb Hct MCV MCH MCHC RDW Std Deviation RDW Coeff of Rebeca Plt Count MPV Immature Gran % (Auto) Neut % (Auto) Lymph % (Auto) [place] % (Auto) Eos % (Auto) Baso % (Auto) Absolute Neuts (auto) Absolute Lymphs (auto) Nucleated RBC % PT INR APTT Sodium Potassium Chloride Carbon Dioxide Anion Gap BUN Creatinine Estim Creat Clear Calc Est GFR (MDRD) Af Amer Est GFR (MDRD) Non-Af BUN/Creatinine Ratio Glucose Lactic Acid Calcium Total Bilirubin AST ALT Alkaline Phosphatase Troponin I High Sens Total Protein Albumin Globulin Albumin/Globulin Ratio Urine Color Yellow Urine Clarity Sl. Cloudy Urine pH 5.0 Ur Specific [place] 1.015 Urine Protein 30 H Urine Glucose (UA) Normal Urine Ketones 5 H Urine Occult Blood 50 H Urine Nitrite Negative Urine Bilirubin Negative Urine Urobilinogen Normal Ur Leukocyte Esterase 25 H Urine RBC 0-5 SEEN Urine WBC 0-5 SEEN Ur Squamous Epith Cells 0-5 SEEN Ur Transition Epith Cell 0-5 SEEN Urine Bacteria 1+ Urine Mucus 0 SEEN Urine Opiates Screen NEGATIVE Urine Methadone Screen NEGATIVE Ur Barbiturates Screen NEGATIVE Ur Phencyclidine Scrn NEGATIVE Ur Amphetamines Screen NEGATIVE U Methamphetamin-MDMA NEGATIVE U Benzodiazepines Scrn NEGATIVE Urine Cocaine Screen NEGATIVE U Cannabinoids Screen NEGATIVE Ur Drug Screen Comment Ethyl Alcohol 332.0 H* 12/31/20 22:50 WBC RBC Hgb Hct MCV MCH MCHC RDW Std Deviation RDW Coeff of Rebeca Plt Count MPV Immature Gran % (Auto) Neut % (Auto) Lymph % (Auto) [place] % (Auto) Eos % (Auto) Baso % (Auto) Absolute Neuts (auto) Absolute Lymphs (auto) Nucleated RBC % PT 13.6 INR 1.1 APTT 24.8 Sodium Potassium Chloride Carbon Dioxide Anion Gap BUN Creatinine Estim Creat Clear Calc Est GFR (MDRD) Af Amer Est GFR (MDRD) Non-Af BUN/Creatinine Ratio Glucose Lactic Acid Calcium Total Bilirubin AST ALT Alkaline Phosphatase Troponin I High Sens Total Protein Albumin Globulin Albumin/Globulin Ratio Urine Color Urine Clarity Urine pH Ur Specific [place] Urine Protein Urine Glucose (UA) Urine Ketones Urine Occult Blood Urine Nitrite Urine Bilirubin Urine Urobilinogen Ur Leukocyte Esterase Urine RBC Urine WBC Ur Squamous Epith Cells Ur Transition Epith Cell Urine Bacteria Urine Mucus Urine Opiates Screen Urine Methadone Screen Ur Barbiturates Screen Ur Phencyclidine Scrn Ur Amphetamines Screen U Methamphetamin-MDMA U Benzodiazepines Scrn Urine Cocaine Screen U Cannabinoids Screen Ur Drug Screen Comment Ethyl Alcohol Radiography Diagnostic Testing: Radiology Impression Abdomen/Pelvis CT 12/31/20 22:22 IMPRESSION: Gallstone. No biliary dilatation. Fatty infiltration of the liver. Electronically Signed: Maciel Alvarez MD at 23:32 EDT , Service support , Chest X-Ray 12/31/20 23:00 IMPRESSION: Degenerative changes, as described above. No demonstrated acute cardiopulmonary process. Electronically Signed: Maciel Alvarez MD at 23:37 EDT , Service support , Discharge Plan Triage Chief Complaint: General Illness ED Provider: Guillaume Johnson Dx/Rx/DC Orders Prescriptions: No Action loratadine [Claritin] 10 mg tablet 10 mg PO DAILY PRN (Reason: Allergies) RF: 0 fluticasone furoate-vilanterol 1 EACH blister with device 1 puff inhalation DAILY RF: 0 mirtazapine 15 tablet 15 mg PO QHS RF: 0 albuterol sulfate 18 GM HFA aerosol inhaler 2 puff IH Q4H PRN (Reason: Sob &/Or Wheezing) RF: 0 hydroxyzine HCl 50 MG tablet 50 mg PO BID RF: 0 dicyclomine 10 MG capsule 10 mg PO ACHS RF: 0 pantoprazole 40 MG tablet 40 mg PO BID RF: 0 tramadol 50 MG tablet 50 mg PO BID PRN PRN (Reason: Pain 1-10 Or Fever) RF: 0 amlodipine 10 MG tablet 10 mg PO DAILY RF: 0 lisinopril 10 MG tablet 10 mg PO DAILY RF: 0 duloxetine 20 MG capsule,delayed release(DR/EC) 20 mg PO DAILY RF: 0 Primary Care Provider: Kellie Delarosa
--- NOTE | 2020-12-31 22:22 | CT_ITS ---
STUDY: CT ABDOMEN AND PELVIS WITHOUT CONTRAST REASON FOR EXAM: Female, 60 years old. Abdominal pain RADIATION DOSAGE (If Supplied By Facility): CTDIvol = ( 6.04 ) mGy, DLP = ( 285.40 ) mGycm TECHNIQUE: Transaxial images were obtained from the dome of the diaphragm to the symphysis pubis without oral contrast, and without intravenous contrast. Sagittal and coronal images were reconstructed. Individualized dose optimization techniques were used for this CT. COMPARISON: November 18, 2018 FINDINGS: There are chronic interstitial fibrotic changes of the lung bases. The visualized portions of the heart are within normal limits. There is decreased attenuation of the liver consistent with steatosis. There is a solitary gallstone. Normal spleen. Normal pancreas. Normal bilateral adrenal glands. Normal right kidney. Normal left kidney. Normal visualized stomach. Normal small intestine. Normal colon. The appendix is visualized and appears normal. There is diffuse atherosclerotic calcification of the abdominal aorta, without a demonstrated aneurysm. Normal inferior vena cava. Normal retroperitoneum. Normal urinary bladder. There is absence of the uterus consistent with a prior hysterectomy. There is no free fluid in the abdomen or pelvis. Normal abdominal wall. There are diffuse degenerative changes of the visualized lumbar spine. CT/Abdomen/Pelvis without Cont IMPRESSION: Gallstone. No biliary dilatation. Fatty infiltration of the liver. Electronically Signed: Maciel Alvarez MD at 23:32 EDT , Service support ,
[2020-12-31 22:31] LABS: Mucous, Urine 0 SEEN /hpf (<or=2+)
[2020-12-31 22:35] LABS: Color, Urine Yellow (Yellow); Glucose, Dipstick Normal (Normal); Ketone-Dipstick 5 mg/dl (Negative); Leukocyte Esterase-Dipstick 25 /ul (Negative); Nitrite-Dipstick Negative (Negative); Occult Blood-Urine 50 /ul (Negative); Protein-Dipstick 30 mg/dl (Negative); Specific Gravity, Urine 1.015 (1.002-1.030); Urine Bilirubin Dipstick Negative (Negative); Urine Clarity Sl. Cloudy (Clear); Urine Urobilinogen Normal (Normal)
[2020-12-31 22:35] LABS: Absolute Lymphocyte Count 1.54 X10^3/uL (0.83-4.51); Absolute Neutrophil Count 7.5 X10^3/uL (2.0-7.7); Basophil# 0.01 X10^3/uL; Basophil% 0.1 % (0-1); Eosinophil# 0.03 X10^3/uL; Eosinophils% 0.3 % (0-5); Hemoglobin 11.7 g/dL (12.0-15.0); Lymphocyte # 1.54 X10^3/ul (0.83-4.51); Lymphocyte % 15.7 % (19-41); Mean Corp Hgb Conc 34.4 g/dL (32-36); Mean Corpuscular Hgb 31.4 pg (27.0-32.0); Mean Corpuscular Volume 91.2 fL (81-99); Monocyte# 0.64 X10^3/uL; Monocyte% 6.5 % (0-10); NRBC Flagged by Analyzer 0 % (0-5); Neutrophil # 7.52 X10^3/uL (2.7-7.7); Neutrophil % 76.9 % (47-70); Platelet Count 254 K/mm3 (150-450); RBC Distribution Width CV 13.9 % (11.6-14.6); RBC Distribution Width SD 46.5 fl (35.1-43.9); Red Blood Count 3.73 M/mm3 (4.2-5.4); White Blood Count 9.8 K/mm3 (4.4-11.0)
[2020-12-31 22:49] LABS: Bacteria 1+ /hpf (None Seen); Red Blood Cells-Urine 0-5 SEEN /hpf (0-5); Squamous Epithelial Cells - UA 0-5 SEEN /hpf (5-10); Transitional Epithelial - Ur 0-5 SEEN /hpf (0-5); White Blood Cells 0-5 SEEN /hpf (0-5)
[2020-12-31 22:49] LABS: ALB/GLOB Ratio 0.9 RATIO (0.9-2.4); AST(SGOT) 54 U/L (15-37); Alanine Aminotransfer ALT/SGPT 35 U/L (13-56); Albumin, Serum 3.5 g/dL (3.2-5.0); Alkaline Phosphatase 79 U/L (45-117); Anion Gap 23 (5-15); BUN 23 mg/dL (7-18); BUN/Creat Ratio 12.3 RATIO (10-20); Calcium,Total 8.6 mg/dL (8.5-10.1); Chloride 88 mmol/L (98-107); Creatinine, Serum 1.87 mg/dL (0.55-1.02); EST Glomerular Filtration Rate 29 mL/min (>60); Est Glom Filt Rate - Afr Amer 35 mL/min (>60); Estimated Creatinine Clearance 27.05 ml/min; Globulin 3.7 g/dL (2.2-4.2); Glucose 58 mg/dL (74-106); Potassium 4.1 mmol/L (3.5-5.1); Protein, Total 7.2 g/dL (6.4-8.2); Sodium Level 127 mmol/L (136-145); Troponin-I HS 8.6 pg/mL (3.0-53.7)
[2020-12-31 22:53] LABS: Amphetamine Urine VISTA NEGATIVE (<1000 ng/mL); Barbiturate Urine VISTA NEGATIVE (< 200 ng/mL); Benzodiazepine Urine VISTA NEGATIVE (< 200 ng/mL); Cocaine Urine VISTA NEGATIVE (< 300 ng/mL); Ecstacy Urine VISTA NEGATIVE (< 500 ng/mL); Methadone Urine VISTA NEGATIVE (< 300 ng/mL); PCP Urine VISTA NEGATIVE (< 25 ng/mL); THC Urine VISTA NEGATIVE (< 50 ng/mL); Vista UDS pH Range 5
[2020-12-31 22:54] LABS: Lactic Acid 3.9 mmol/L (0.4-1.9)
--- NOTE | 2020-12-31 23:00 | RAD_ITS ---
STUDY: X-RAY CHEST REASON FOR EXAM: Female, 60 years old. Weakness TECHNIQUE: Single AP portable view of the chest. COMPARISON: November 05, 2020 FINDINGS: There are monitoring devices. There is hyperinflation of the lungs consistent with chronic obstructive lung disease (COPD). There is no demonstrated pleural abnormality. Normal size heart. Normal mediastinum and liam. Normal visualized pulmonary arteries. Normal visualized aortic arch and descending thoracic aorta. Normal visualized thoracic spine. Normal visualized ribs, clavicles, and shoulders. There is no demonstrated abnormality of the visualized soft tissue structures of the upper abdomen. RAD/Chest 1 View (Portable) IMPRESSION: Degenerative changes, as described above. No demonstrated acute cardiopulmonary process. Electronically Signed: Maciel Alvarez MD at 23:37 EDT , Service support ,
[2020-12-31 23:07] LABS: International Normalized Ratio 1.1; Partial Thromboplast Time 24.8 Seconds (24.1-36.2); Prothrombin Time (Protime)PT. 13.6 SECONDS (11.7-14.9)
[2020-12-31 23:13] VITALS: BP 94/55; PULSE 104; RESP 16; TEMP 36.6; O2SAT 96
[2020-12-31 23:32] VITALS: BP 93/48
[2020-12-31] MEDS: 0.9% Normal Saline 1,000 ML 999 ML IV (23:35)
[2021-01-01] VITALS (15 sets, daily range): BP systolic 95–140; BP diastolic 54–85; PULSE 90–115; RESP 16–20; TEMP 36.9–37.3; O2SAT 93–99
--- NOTE | 2021-01-01 01:22 | HP.PCM.HOS_ITS ---
HPI - General General Date of Admission: 01/01/21 Date of Service: 01/01/21 Chief Complaint: malaise HPI Narrative ANISA PABLO, is a 60 F who presents with not feeling well. Patient states that she had shingles under her left breast several months ago and has had pain since then. After which, patient has just not been eating much and has lost roughly 25 pounds. Patient states that she has not eaten in 4 days, however, she did drink 1/5 of vodka on the . States that she has not drank alcohol since October. Patient states that when she does try to eat that she does not vomit so she just is not eating. Despite this, patient is able to do gardening and still go to the tanning bed. In the emergency room, patient had an alcohol level of 332, lactic acid of 3.9, creatinine 1.87 and sodium of 127. [facility] Medical History Abnormal mammogram Anxiety Bipolar 1 disorder COPD (chronic obstructive pulmonary disease) Hepatotoxicity, secondary to ETOH Insomnia Home Medications loratadine 10 mg tablet 10 mg PO DAILY PRN 04/04/18 [History Last Taken 07/27/20] fluticasone furoate-vilanterol 1 puff INHALATION DAILY 07/16/18 [History Last Taken 07/27/20] albuterol sulfate 2 puff IH Q4H PRN 11/16/18 [History Last Taken 07/28/20] mirtazapine 15 mg PO QHS 11/16/18 [History Last Taken 07/27/20] dicyclomine 10 mg PO ACHS 10/17/19 [History Last Taken 07/27/20] hydroxyzine HCl 50 mg PO BID 10/17/19 [History Last Taken 07/27/20] pantoprazole 40 mg PO BID 10/17/19 [History Last Taken 07/27/20] amlodipine 10 mg PO DAILY 07/28/20 [History Last Taken Unknown] duloxetine 20 mg PO DAILY 07/28/20 [History Last Taken 07/27/20] lisinopril 10 mg PO DAILY 07/28/20 [History Last Taken 07/27/20] tramadol 50 mg PO BID PRN PRN 07/28/20 [History Last Taken Unknown] Allergy/AdvReac Type Severity Reaction Status Date / Time Penicillins Allergy WEAKNESS,VISION Verified 12/31/20 21:30 ISSUES Family History Mother Hypertension Thyroid disorder CVA (cerebral vascular accident) Sister Heart disease Surgical History History of History of hysterectomy Social History Smoking Status: Current every day smoker tobacco type: cigarettes substance use type: does not use ROS ROS Narrative No fever or chills. Denies any exposure to anyone with COVID-19. Has not been vaccinated against COVID-19. Denies having had COVID-19 despite having a positive serology back in July. All review of systems were negative except as mentioned above in the history of present illness and the other review of systems. Constitutional Constitutional: Reports anorexia and weakness; Denies chills or fatigue Cardiovascular Cardiovascular: Denies chest pain Respiratory/Chest Respiratory/Chest: Denies cough or dyspnea Vital Signs Vital Signs Vital Signs: 12/31/20 21:31 12/31/20 21:35 12/31/20 21:45 Temperature 36.9 C Temperature Source Temporal Pulse Rate 111 H Respiratory Rate 15 Respiratory Effort Normal Non-Labored Respiratory Pattern Normal Blood Pressure 77/53 L Blood Pressure Mean 61 Pulse Ox 94 98 Oxygen Delivery Method Room Air Nasal Cannula Oxygen Flow Rate (L/min) 2 12/31/20 22:15 12/31/20 22:26 12/31/20 23:13 Temperature 36.6 C Temperature Source Temporal Pulse Rate 100 104 H Respiratory Rate 16 Respiratory Effort Respiratory Pattern Blood Pressure 96/56 L 94/55 L Blood Pressure Mean 69 68 Pulse Ox 96 Oxygen Delivery Method Nasal Cannula Nasal Cannula Oxygen Flow Rate (L/min) 2 2 12/31/20 23:32 01/01/21 01:07 Temperature 36.9 C Temperature Source Temporal Pulse Rate 115 H Respiratory Rate 18 Respiratory Effort Respiratory Pattern Blood Pressure 93/48 L 116/65 Blood Pressure Mean 63 82 Pulse Ox 99 Oxygen Delivery Method Oxygen Flow Rate (L/min) Weight Weight: 52.9 kg Body Mass Index (BMI) 20.0 Physical Exam Const alert and no apparent distress Constitutional Narrative: Appears older than stated age. Very tanned. General Appearance: cooperative HEENT normocephalic and moist oral mucous membranes Eyes Eyes Narrative: No scleral icterus. Corneal injection. Neck no lymphadenopathy Neck Narrative: Positive thyromegaly Resp normal respiratory effort, no retractions and no use of accessory muscles Cardio regular rate, regular rhythm, S1 normal heart sound and S2 normal heart sound GI GI Narrative: Slightly tender. Nondistended. No hepatosplenomegaly. Extremity normal to inspection Skin Skin Narrative: Patient is very tanned throughout. No rashes nor bruising. Neuro moves all extremities and no focal motor deficits Sensorium / Orientation: alert Psych affect normal Results Lab / Micro Data Attestation: I reviewed the patient's lab results. Lab results narrative: Chest x-ray personally reviewed and showed hyperinflated airways but no evidence of infiltrate nor edema. Result Diagrams: 12/31/20 21:33 12/31/20 21:33 Labs: Laboratory Results - last 24 hr 12/31/20 12/31/20 12/31/20 21:33 21:33 21:33 WBC 9.8 RBC 3.73 L Hgb 11.7 L Hct 34.0 L MCV 91.2 MCH 31.4 MCHC 34.4 RDW Std Deviation 46.5 H RDW Coeff of Rebeca 13.9 Plt Count 254 MPV 9.0 Immature Gran % (Auto) 0.500 Neut % (Auto) 76.9 H Lymph % (Auto) 15.7 L [place] % (Auto) 6.5 Eos % (Auto) 0.3 Baso % (Auto) 0.1 Absolute Neuts (auto) 7.5 Absolute Lymphs (auto) 1.54 Nucleated RBC % 0 PT INR APTT Sodium 127 L Potassium 4.1 Chloride 88 L Carbon Dioxide 16.0 L Anion Gap 23 H BUN 23 H Creatinine 1.87 H Estim Creat Clear Calc 27.05 Est GFR (MDRD) Af Amer 35 L Est GFR (MDRD) Non-Af 29 L BUN/Creatinine Ratio 12.3 Glucose 58 L Lactic Acid 3.9 H* Calcium 8.6 Total Bilirubin 0.50 AST 54 H ALT 35 Alkaline Phosphatase 79 Troponin I High Sens 8.6 Total Protein 7.2 Albumin 3.5 Globulin 3.7 Albumin/Globulin Ratio 0.9 Urine Color Urine Clarity Urine pH Ur Specific [place] Urine Protein Urine Glucose (UA) Urine Ketones Urine Occult Blood Urine Nitrite Urine Bilirubin Urine Urobilinogen Ur Leukocyte Esterase Urine RBC Urine WBC Ur Squamous Epith Cells Ur Transition Epith Cell Urine Bacteria Urine Mucus Urine Opiates Screen Urine Methadone Screen Ur Barbiturates Screen Ur Phencyclidine Scrn Ur Amphetamines Screen U Methamphetamin-MDMA U Benzodiazepines Scrn Urine Cocaine Screen U Cannabinoids Screen Ur Drug Screen Comment Ethyl Alcohol 12/31/20 12/31/20 12/31/20 21:33 22:15 22:15 WBC RBC Hgb Hct MCV MCH MCHC RDW Std Deviation RDW Coeff of Rebeca Plt Count MPV Immature Gran % (Auto) Neut % (Auto) Lymph % (Auto) [place] % (Auto) Eos % (Auto) Baso % (Auto) Absolute Neuts (auto) Absolute Lymphs (auto) Nucleated RBC % PT INR APTT Sodium Potassium Chloride Carbon Dioxide Anion Gap BUN Creatinine Estim Creat Clear Calc Est GFR (MDRD) Af Amer Est GFR (MDRD) Non-Af BUN/Creatinine Ratio Glucose Lactic Acid Calcium Total Bilirubin AST ALT Alkaline Phosphatase Troponin I High Sens Total Protein Albumin Globulin Albumin/Globulin Ratio Urine Color Yellow Urine Clarity Sl. Cloudy Urine pH 5.0 Ur Specific [place] 1.015 Urine Protein 30 H Urine Glucose (UA) Normal Urine Ketones 5 H Urine Occult Blood 50 H Urine Nitrite Negative Urine Bilirubin Negative Urine Urobilinogen Normal Ur Leukocyte Esterase 25 H Urine RBC 0-5 SEEN Urine WBC 0-5 SEEN Ur Squamous Epith Cells 0-5 SEEN Ur Transition Epith Cell 0-5 SEEN Urine Bacteria 1+ Urine Mucus 0 SEEN Urine Opiates Screen NEGATIVE Urine Methadone Screen NEGATIVE Ur Barbiturates Screen NEGATIVE Ur Phencyclidine Scrn NEGATIVE Ur Amphetamines Screen NEGATIVE U Methamphetamin-MDMA NEGATIVE U Benzodiazepines Scrn NEGATIVE Urine Cocaine Screen NEGATIVE U Cannabinoids Screen NEGATIVE Ur Drug Screen Comment Ethyl Alcohol 332.0 H* 12/31/20 22:50 WBC RBC Hgb Hct MCV MCH MCHC RDW Std Deviation RDW Coeff of Rebeca Plt Count MPV Immature Gran % (Auto) Neut % (Auto) Lymph % (Auto) [place] % (Auto) Eos % (Auto) Baso % (Auto) Absolute Neuts (auto) Absolute Lymphs (auto) Nucleated RBC % PT 13.6 INR 1.1 APTT 24.8 Sodium Potassium Chloride Carbon Dioxide Anion Gap BUN Creatinine Estim Creat Clear Calc Est GFR (MDRD) Af Amer Est GFR (MDRD) Non-Af BUN/Creatinine Ratio Glucose Lactic Acid Calcium Total Bilirubin AST ALT Alkaline Phosphatase Troponin I High Sens Total Protein Albumin Globulin Albumin/Globulin Ratio Urine Color Urine Clarity Urine pH Ur Specific [place] Urine Protein Urine Glucose (UA) Urine Ketones Urine Occult Blood Urine Nitrite Urine Bilirubin Urine Urobilinogen Ur Leukocyte Esterase Urine RBC Urine WBC Ur Squamous Epith Cells Ur Transition Epith Cell Urine Bacteria Urine Mucus Urine Opiates Screen Urine Methadone Screen Ur Barbiturates Screen Ur Phencyclidine Scrn Ur Amphetamines Screen U Methamphetamin-MDMA U Benzodiazepines Scrn Urine Cocaine Screen U Cannabinoids Screen Ur Drug Screen Comment Ethyl Alcohol Micro: Microbiology 01/01/21 00:58 SARS-CoV-2 Antigen (Rapid) - Final Mucosa - Nose EKG Initial EKG: Attestation: I personally reviewed and interpreted this EKG as follows: Prior EKG tracings: available for review EKG Rhythm Intrepretation: Sinus Rhythm Interpretation: EKG reviewed and showed no acute process. Q waves in the anterior leads. Unchanged from November 05, 2020. Radiology Impression Abdomen/Pelvis CT 12/31/20 22:22 IMPRESSION: Gallstone. No biliary dilatation. Fatty infiltration of the liver. Electronically Signed: Maciel Alvarez MD at 23:32 EDT , Service support , Chest X-Ray 12/31/20 23:00 IMPRESSION: Degenerative changes, as described above. No demonstrated acute cardiopulmonary process. Electronically Signed: Maciel Alvarez MD at 23:37 EDT , Service support , Assessment & Plan Assessment/Plan (1) Starvation ketoacidosis: (2) YADIRA (acute kidney injury): (3) Acute hyponatremia: PLAN: 1. Starvation ketoacidosis * Patient's abdomen is presently normal at 3.5, however the patient states that she has not eaten in 4 days but was able to drink 1/5 of vodka on the . * Patient received 3 L of IV fluids on the floor and will give her additional fluids. * Will put the patient on a regular diet plus supplements * Dietary to evaluate and make recommendations. * Patient states that she is not able to eat. Abdominal CT was negative. * Patient already on twice daily PPI so we will add sucralfate. * If patient continues to have vomiting with eating consider getting a barium esophagram. 2. Acute kidney injury * Likely prerenal * IV fluids and reevaluate. * Consider ultrasound and/or nephrology consultation if continues to worsen. 3. Hyponatremia * Likely due to hypovolemia * Isotonic fluids and reevaluate. * Will check a TSH * If persists, would recommend checking random cortisol and additional SIADH st udies 4. Alcohol abuse * Patient intoxicated upon arrival * Patient states that she has not drank alcohol since October * Will place the patient on thiamine and folate * Would have a low threshold to initiate CIWA protocol if patient does demonstrate signs and symptoms of alcohol withdrawal. 5. Suspected malnutrition * Patient states that she has not eaten in 4 days * Her abdomen is is presently normal despite this * Nutrition consult * Regular diet and supplements * Check magnesium and phosphorus 6. Lactic acidosis * Likely secondary to starvation ketoacidosis * Patient had a COVID-19 rapid antigen that was negative * Urinalysis was unremarkable for infection and blood cultures were drawn. * No treatment for infection at this time as I feel is related with the starvation ketoacidosis 7. VTE prophylaxis * Currently patient is observation status but if hospitalization does extend longer then would recommend VT prophylactic dosing with enoxaparin 8. Health maintenance * Patient has not been vaccinated against COVID-19. I did encourage her to become vaccinated given her underlying COPD. Though does appear the patient had a positive PCR back in July * Patient will need nicotine counseling given her smoking history * Patient also frequents the tanning bed and is at risk for skin cancers, including melanoma. 9. COPD * Not in exacerbation * Was transiently hypoxic while she was here but not complaining of any shortness of breath. * Check an ambulatory pulse ox prior to discharge. Charges/Coding Visit Charges OBSV E&M: 31613 Initial observation care L3
[2021-01-01 01:53] LABS: Troponin-I HS 10.2 pg/mL (3.0-53.7)
[2021-01-01 02:30] LABS: Reflex Lactate? Y
[2021-01-01 02:35] LABS: Lactic Acid 1.7 mmol/L (0.4-1.9)
[2021-01-01] MEDS: 0.9% Normal Saline 1,000 ML 150 ML IV (03:02)
[2021-01-01] MEDS: 0.9% Saline Lock 10 ML Syringe IV ×2 (03:02→21:34)
[2021-01-01] MEDS: Dicyclomine 10 MG Capsule PO ×4 (06:33→21:21)
[2021-01-01] MEDS: Sucralfate 1 GM Tablet PO ×4 (06:33→21:22)
[2021-01-01] MEDS: Acetaminophen 325 MG Tablet 650 MG PO (06:33)
[2021-01-01] MEDS: Budesonide Respules 0.5 MG/2 ML AMPUL.NEB. INHALATION ×2 (06:48→19:03)
[2021-01-01] MEDS: Albuterol 2.5 MG/3 ML VIAL.NEB. INHALATION ×3 (06:48→19:03)
[2021-01-01 07:43] LABS: Anion Gap 14 (5-15); BUN 17 mg/dL (7-18); BUN/Creat Ratio 13.2 RATIO (10-20); Calcium,Total 7.8 mg/dL (8.5-10.1); Chloride 100 mmol/L (98-107); Creatinine, Serum 1.29 mg/dL (0.55-1.02); EST Glomerular Filtration Rate 45 mL/min (>60); Est Glom Filt Rate - Afr Amer 54 mL/min (>60); Estimated Creatinine Clearance 39.21 ml/min; Glucose 75 mg/dL (74-106); Magnesium 1.5 mg/dL (1.6-2.6); Phosphorus 2.1 mg/dL (2.5-4.9); Potassium 4.3 mmol/L (3.5-5.1); Sodium Level 133 mmol/L (136-145); Thyroid Stim Hormone (TSH) 0.27 uIU/mL (0.358-3.74)
[2021-01-01] MEDS: amLODIPine 10 MG Tablet PO (08:36)
[2021-01-01] MEDS: DULoxetine Hcl 20 MG Capsule PO (08:36)
[2021-01-01] MEDS: hydrOXYzine PAM 25 MG Capsule 50 MG PO ×2 (08:36→21:22)
[2021-01-01] MEDS: Pantoprazole Sodium 40 MG Tablet PO ×2 (08:36→21:21)
[2021-01-01] MEDS: Phenobarbital 32.4 MG Tablet 64.8 MG PO ×5 (08:37→23:48)
[2021-01-01] MEDS: Thiamine Hydrochloride 100 MG Tablet PO (08:37)
[2021-01-01] MEDS: Folic Acid 1 MG Tablet PO (08:37)
--- NOTE | 2021-01-01 10:20 | EX.NTREPO ---
Medical Nutrition Therapy - History Current diet/nutrition support order:: Regular diet w/ 120 ml ensure enlive 4x/day - Anthropometric Measurements Height:: 5 ft 4 in Weight:: 52.9 kg Body Mass Index (BMI):: 20.0 - Relevant Labs Relevant Labs:: RBC 3.73 M/mm3 (4.2-5.4) L 12/31/20 21:33 Hgb 11.7 g/dL (12.0-15.0) L 12/31/20 21:33 Hct 34.0 % (37-47) L 12/31/20 21:33 RDW Std Deviation 46.5 fl (35.1-43.9) H 12/31/20 21:33 Neut % (Auto) 76.9 % (47-70) H 12/31/20 21:33 Lymph % (Auto) 15.7 % (19-41) L 12/31/20 21:33 Sodium 133 mmol/L (136-145) L 01/01/21 06:42 Chloride 88 mmol/L (98-107) L 12/31/20 21:33 Carbon Dioxide 19.0 mmol/L (21.0-32.0) L 01/01/21 06:42 Anion Gap 23 (5-15) H 12/31/20 21:33 BUN 23 mg/dL (7-18) H 12/31/20 21:33 Creatinine 1.29 mg/dL (0.55-1.02) H 01/01/21 06:42 Est GFR (MDRD) Af Amer 54 mL/min (>60) L 01/01/21 06:42 Est GFR (MDRD) Non-Af 45 mL/min (>60) L 01/01/21 06:42 Glucose 58 mg/dL (74-106) L 12/31/20 21:33 Lactic Acid 3.9 mmol/L (0.4-1.9) H* 12/31/20 21:33 Calcium 7.8 mg/dL (8.5-10.1) L 01/01/21 06:42 Phosphorus 2.1 mg/dL (2.5-4.9) L 01/01/21 06:42 Magnesium 1.5 mg/dL (1.6-2.6) L 01/01/21 06:42 AST 54 U/L (15-37) H 12/31/20 21:33 TSH 0.27 uIU/mL (0.358-3.74) L 01/01/21 06:42 - Assessment Food and Nutrient Intake: Pt states no appetite since Aug when she had shingles under her breasts and the nerve endings there have been messing w/ my stomach. She states prior to adm, hadn't eaten x 4 days. Ate only 1/2 of cereal and 1/2 of juice for breakfast. Pt is willing to try ensure w/ medpass for increased nutrition if consumed. Noted pt on Remeron which may help stimulate appetite. UBW: 61.8 kg - wt loss of 14.5% x 4 mo. (sig for malnutrition) - Nutrition Diagnosis: Intake Problem Inadequate Oral Intake Intake Problem - Etiology: related to having had shingles in Aug and has not had much of an appetite since then Intake Problem - Signs/Symptoms: as evidenced by 14.5% wt loss x 4 mo and <50% po intake over past several months d/t no appetite. Pt noted to having protruding clavicle, sunken orbital/temporal regions. Status: Active Problem - Protein Calorie Malnutrition Evidence of Malnutrition Exists: Yes Severe Protein Calorie Malnutrition:: Acute Illness/Injury - Nutrition Intervention Nutrition Prescription: [id number] scott/day (RMR x 1.2-1.3 + 250). 53-64 gm pro/day (1-1.2 gm/kg). 1785 ml/day (per ASPEN guidelines) - Food / Nutrient Delivery Interventions Summary of nutrition intervention:: Provide oral nutrition supplement Nutrition support ordered as / adjusted to:: Will continue Regular diet. Will order ensure pudding w/ lunch and magic cup w/ dinner for increased nutrition if consumed. Will continue 120 ml Ensure Enlive 4x/day w/ medpass Nutrition education provided?: No - MNT Monitoring Active Nutrition Patient: Yes Nutrition Status: Requires Follow Up 3-5 Days - please call RD/LD if questions/concerns at [phone]
--- NOTE | 2021-01-01 12:24 | PCM.HOSP.N ---
Hospitalist Note Patient is a 60-year-old white female who presented to the emergency department early this morning secondary to not feeling well. She reports she had shingles on the left side of her abdomen/breast and states she has had pain there ever since. She states she has not been eating months and reports that she is lost 25 pounds. She states she has not eaten in 4 days however she did drink 1/5 of vodka prior to coming in. She reports prior to that she has not drank any alcohol since October however her blood alcohol on admission was 332 and she was able to give a history and cognizant I will of what was going on so I suspect she may drink a little bit more than she is telling us. When asked if she would like to go through detox and see addiction she reports no it has does not work I have done in the past. Her serum creatinine was markedly elevated on admission at 1.87 and is trending down with IV fluids. She had a lactic acidosis which now has resolved. She has hypophosphatemia and hypomagnesemia both which were replaced with IV supplementation today and will be repeated tomorrow. Serial cardiac enzymes are negative x2. A TSH was obtained and was low at 0.27 we will therefore obtain a free T4 in the a.m. to rule out hyperthyroidism versus euthyroid sick. Dietary supplements have been added to supplement her regular diet. Monitor p.o. intake. If patient is persistently unable to take p.o. may need to obtain an esophagram to rule out any abnormality. Start gabapentin for neuropathic pain. Patient is can planing of internal tremor and has tachycardia this may be related to alcohol withdrawal and we will start phenobarb.
[2021-01-01] MEDS: Gabapentin 300 MG Capsule PO ×2 (14:05→21:21)
--- NOTE | 2021-01-01 14:20 | CASEMGMT ---
Social Work Note DWAYNE reviewed chart, pt with history of ETOH use and recent ETOH use. SW in to speak with pt. SW introduced self and role at [facility]. Pt is alert and orientated, engages appropriately in conversation. Pt confirms that she was in [facility] residential treatment last year (10/21/2019). Pt states that the other day was the first time she had drank ETOH since she went to [facility] residential program in October of last year. Pt states she drank a fifth of Vodka. SW asked pt what led her to drink, asked for any stressors in her life. Pt states she had shingles and has pain because of that with the nerve endings and because of the pain she drank. SW asked pt if she had any other coping skills to cope with the pain and pt denied. SW offered counseling/treatment resources and pt denied. Pt states she is scheduled to meet with a psychiatrist at [facility] in January. Mental Health Hx: Pt's chart states pt with history of Anxiety, Depression, Bipolar. Pt confirms Anxiety and Depression. Pt states she is currently on medication prescribed through her PCP. Pt states that she feels her Anxiety and Depression are well managed. Pt denied any history of suicidal thoughts/plans/ideations. Pt denied any current suicidal thoughts/plans/ideations. Support: Pt states she lives with a friend who is good sober support. Pt states she has good support from additional family and friends. Pt denied any concerns or needs at this time. Pt denied any home going needs. Lily Solano CLINICAL INFORMATICS DIRECTOR, [employer]
--- NOTE | 2021-01-01 17:01 | NURSING ---
Mag IV not on the floor at this time. Call to Pharmacy.
[2021-01-01] MEDS: Mirtazapine 15 MG Tablet PO (21:20)
[2021-01-02] VITALS (18 sets, daily range): BP systolic 110–145; BP diastolic 63–103; PULSE 90–115; RESP 16–20; TEMP 36.9–37.4; O2SAT 87–100
[2021-01-02] MEDS: 0.9% Saline Lock 10 ML Syringe IV (03:51)
[2021-01-02] MEDS: Phenobarbital 32.4 MG Tablet 64.8 MG PO ×5 (03:51→23:37)
[2021-01-02] MEDS: Dicyclomine 10 MG Capsule PO ×4 (06:40→21:11)
[2021-01-02] MEDS: Gabapentin 300 MG Capsule PO ×3 (06:40→21:12)
[2021-01-02] MEDS: Sucralfate 1 GM Tablet PO ×4 (06:41→21:12)
[2021-01-02 06:53] LABS: Absolute Neutrophil Count 5.7 X10^3/uL (2.0-7.7); Basophil# 0.01 X10^3/uL; Basophil% 0.1 % (0-1); Eosinophil# 0.13 X10^3/uL; Eosinophils% 1.6 % (0-5); Lymphocyte % 19.4 % (19-41); Mean Corp Hgb Conc 34.5 g/dL (32-36); Mean Corpuscular Hgb 31.1 pg (27.0-32.0); Mean Corpuscular Volume 90.1 fL (81-99); Mean Platelet Vol. 9.6 fl (6.2-12.0); Monocyte% 9.7 % (0-10); NRBC Flagged by Analyzer 0 % (0-5); Neutrophil # 5.69 X10^3/uL (2.7-7.7); Neutrophil % 68.8 % (47-70); Platelet Count 177 K/mm3 (150-450); RBC Distribution Width CV 14.1 % (11.6-14.6); RBC Distribution Width SD 46.3 fl (35.1-43.9); Red Blood Count 3.22 M/mm3 (4.2-5.4); White Blood Count 8.3 K/mm3 (4.4-11.0)
[2021-01-02] MEDS: Budesonide Respules 0.5 MG/2 ML AMPUL.NEB. INHALATION ×2 (07:14→19:27)
[2021-01-02] MEDS: Albuterol 2.5 MG/3 ML VIAL.NEB. INHALATION ×3 (07:14→19:27)
[2021-01-02 07:27] LABS: ALB/GLOB Ratio 0.9 RATIO (0.9-2.4); AST(SGOT) 30 U/L (15-37); Alanine Aminotransfer ALT/SGPT 27 U/L (13-56); Alkaline Phosphatase 77 U/L (45-117); Anion Gap 10 (5-15); BUN 9 mg/dL (7-18); BUN/Creat Ratio 11.7 RATIO (10-20); Calcium,Total 8.5 mg/dL (8.5-10.1); Chloride 97 mmol/L (98-107); Creatinine, Serum 0.77 mg/dL (0.55-1.02); EST Glomerular Filtration Rate 82 mL/min (>60); Est Glom Filt Rate - Afr Amer 99 mL/min (>60); Globulin 3.4 g/dL (2.2-4.2); Glucose 111 mg/dL (74-106); Magnesium 1.6 mg/dL (1.6-2.6); Potassium 3.3 mmol/L (3.5-5.1); Protein, Total 6.4 g/dL (6.4-8.2); Sodium Level 134 mmol/L (136-145)
[2021-01-02 08:14] LABS: T4 Free Direct 0.79 ng/dL (0.76-1.46)
[2021-01-02] MEDS: Potassium Chloride Oral Tablet 20 MEQ 60 MEQ PO (08:49)
[2021-01-02] MEDS: Folic Acid 1 MG Tablet PO (08:50)
[2021-01-02] MEDS: Thiamine Hydrochloride 100 MG Tablet PO (08:51)
--- NOTE | 2021-01-02 10:28 | PCM.PN.HOSP ---
Documented by User: Miguel RAHMAN 01/02/21 10:45 Subjective Subjective Patient is a 60-year-old female comfortably resting in a chair and eating breakfast, alert and oriented x3. Denies chest pain, shortness of breath, palpitations, hemoptysis, sputum production, fever, chills, N/V/D. Objective Data Objective Data Vital Signs: Vital Signs Temp Pulse Resp BP Pulse Ox 99.4 F H 102 H 18 110/72 92 01/02/21 08:39 01/02/21 08:39 01/02/21 08:39 01/02/21 08:39 01/02/21 08:39 Oxygen Flow Rate (L/min) 2 Oxygen Delivery Method Room Air Weight: 116 lb 9.992 oz Body Mass Index (BMI) 20.0 Intake & Output: Intake and Output for Last 24 Hours 12/31/20 01/01/21 01/02/21 23:59 23:59 23:59 Intake Total 1000 / 1000 3324 / 3324 660 / 660 Output Total 600 / 600 350 / 350 Balance 1000 / 1000 2724 / 2724 310 / 310 Lab / Micro Data Result Diagrams: 01/02/21 06:10 01/02/21 06:10 Labs: Laboratory Results - last 24 hr 01/02/21 01/02/21 01/02/21 06:10 06:10 06:15 WBC 8.3 RBC 3.22 L Hgb 10.0 L Hct 29.0 L MCV 90.1 MCH 31.1 MCHC 34.5 RDW Std Deviation 46.3 H RDW Coeff of Rebeca 14.1 Plt Count 177 MPV 9.6 Immature Gran % (Auto) 0.400 Neut % (Auto) 68.8 Lymph % (Auto) 19.4 [place] % (Auto) 9.7 Eos % (Auto) 1.6 Baso % (Auto) 0.1 Absolute Neuts (auto) 5.7 Absolute Lymphs (auto) 1.60 Nucleated RBC % 0 Sodium 134 L Potassium 3.3 L Chloride 97 L Carbon Dioxide 27.0 Anion Gap 10 BUN 9 Creatinine 0.77 Estim Creat Clear Calc 65.70 Est GFR (MDRD) Af Amer 99 Est GFR (MDRD) Non-Af 82 BUN/Creatinine Ratio 11.7 Glucose 111 H Calcium 8.5 Magnesium 1.6 Total Bilirubin 0.50 AST 30 ALT 27 Alkaline Phosphatase 77 Total Protein 6.4 Albumin 3.0 L Globulin 3.4 Albumin/Globulin Ratio 0.9 Free T4 0.79 Micro: Microbiology 12/31/20 22:15 Urine, Clean Catch Urine Culture - Final Presumptive E. coli 01/01/21 00:58 Mucosa - Nose SARS-CoV-2 Antigen (Rapid) - Final Physical Exam Const alert, oriented x3 and no apparent distress HEENT head/scalp atraumatic, moist oral mucous membranes and oropharynx normal Head and Scalp: normocephalic Eyes EOMs intact bilaterally and conjunctivae normal Neck no lymphadenopathy, supple and no JVD Resp normal respiratory effort, no retractions, no use of accessory muscles and clear to auscultation bilaterally Cardio regular rate, regular rhythm, no murmurs and no JVD GI normal to inspection, nondistended, normoactive bowel sounds, soft to palpation and non-tender Extremity normal to inspection, full ROM and no clubbing, cyanosis or edema Skin no rashes or lesions noted, no wounds, skin turgor normal and no jaundice Neuro CN's II-XII intact bilaterally Psych affect normal Assessment & Plan Assessment/Plan (1) Starvation ketoacidosis: (2) YADIRA (acute kidney injury): (3) Acute hyponatremia: (4) Alcohol dependence: (5) Malnutrition: (6) COPD (chronic obstructive pulmonary disease): QUALIFIERS: COPD type: unspecified COPD Qualified Code(s): J44.9 - Chronic obstructive pulmonary disease, unspecified PLAN: Day 2: See subjective for patient presentation. Discharge planning: Physical therapy [facility]. Patient reports that she is very active at home and would prefer home therapy. This provider believes it home therapy would be more appropriate for this patient. Case management to discuss with patient. 1) starvation ketoacidosis/suspected malnutrition On admission patient reported that she had not eaten for days and drank 1/5 of vodka before admitting. Abdominal CT was unremarkable. Patient was observed eating all of her breakfast this morning. Plan; continue regular diet with supplementation, dietary consult ordered. 2) YADIRA Resolved, creatinine currently 0.77. 3) hyponatremia Currently 134, IV fluids have been replaced and patient is on regular diet with supplementation. Plan; continue to monitor BMP, 4) alcohol abuse/impending withdrawal Plan; continue phenobarb taper, gabapentin initiated for neuropathic pain, thiamine and folic acid replaced, Bentyl scheduled, Vistaril scheduled, Imodium as needed 5) lactic acidosis Likely secondary to #1. Plan; as above. 6) depression Continue Cymbalta and Remeron. 7) COPD Continue albuterol and budesonide. 8) GERD Continue PPI. DVT prophylaxis - Low risk Patient seen by Miguel Phan PA-C, under the supervision of Dr. Chung. Documented by User: Dr. Crystal Chung, 01/02/21 12:13 Subjective Subjective Patient states she is feeling better today. She was able to eat last evening without considerable discomfort or abdominal issues. She did require significant assistance with therapy and continued therapy as an inpatient has been recommended. She would like this reevaluated through the weekend as she would like to go home preferably. Overall she is much improved. Objective Data Lab / Micro Data Result Diagrams: 01/02/21 06:10 01/02/21 06:10 Physical Exam Const alert, oriented x3, no apparent distress and average body habitus Constitutional Narrative: Upper middle-aged white female sitting up in bed, markedly tanned (patient uses tanning bed regularly) nontoxic-appearing, watching television, appears comfortable Exam Limitations: no limitations HEENT head/scalp atraumatic and moist oral mucous membranes Head and Scalp: normocephalic Resp normal respiratory effort, no retractions, no use of accessory muscles and clear to auscultation bilaterally Cardio regular rate, regular rhythm, S1 normal heart sound, S2 normal heart sound, no murmurs, no rub, no gallops, no clicks and no JVD GI normal to inspection, nondistended, normoactive bowel sounds, soft to palpation, non-tender and non-distended Extremity normal to inspection, full ROM and no clubbing, cyanosis or edema Peripheral Pulses: Yes pulses 2+ throughout Neuro oriented x3, CN's II-XII intact bilaterally, moves all extremities and no focal motor deficits Sensorium / Orientation: awake and alert Speech: speech normal Psych affect normal Psych Narrative: Calm no signs of depression or anxiety, patient appropriate Assessment & Plan Assessment/Plan (1) Starvation ketoacidosis: (2) YADIRA (acute kidney injury): (3) Acute hyponatremia: (4) Alcohol dependence: PLAN: Assessment: Starvation ketosis YADIRA Hyponatremia Alcohol abuse Lactic acidosis-resolved Malnutrition COPD Hypertension GERD Herpes zoster neuropathy Depression Chronic pain Debility Plan: -Suspect her ketosis is multifactorial including poor p.o. intake and significant alcohol utilization which inhibits gluconeogenesis -P.o. intake is improved -CT abdomen pelvis was unremarkable -Renal function is back to baseline -Hyponatremia is correcting with fluids and p.o. intake -Continue alcohol detox with phenobarbital and supportive medications -Patient is not interested in detox on a permanent basis -Lactic acidosis has resolved -With regards to debility it is currently being recommended by physical therapy/Occupational Therapy the patient have further inpatient therapy prior to discharge home--> patient is very much desiring to go home and would prefer home care therapy--> ongoing discussion with case management and attempts to get this set up and see if this is an option at discharge -Possible discharge tomorrow if home care can be set up if not patient will have to wait until Monday to be discharged Charges/Coding Visit Charges Inpatient E&M: 03247 Subs Hosp L2
[2021-01-02] MEDS: DULoxetine Hcl 20 MG Capsule PO (11:10)
[2021-01-02] MEDS: hydrOXYzine PAM 25 MG Capsule 50 MG PO ×2 (11:10→21:11)
[2021-01-02] MEDS: amLODIPine 10 MG Tablet PO (11:11)
[2021-01-02] MEDS: Pantoprazole Sodium 40 MG Tablet PO ×2 (11:11→21:11)
[2021-01-02] MEDS: Polyethylene Glycol 3350 17 GM PACKET PO (11:15)
--- NOTE | 2021-01-02 12:30 | CASEMGMT ---
SURINDER CM in to pt room to discuss therapy options per request of . Pt states she definitely will not go to a SNF s/t and she does not want people in her home. Pt states she thinks she will be fine and she has a walker at home. She states she goes to [employer] often and will build her strength there. Pt thinks that she was weak due to not eating and also having too much ETOH. Pt states she goes to AA meetings, and at one time she had been sober for 7 years. She had a spell in October where she drank and then again last . Pt is aware that if she should change her mind once she is home to contact her PCP who can order therapy for her. She is also aware that if she changes her mind while still in the hospital to ask for the CM. Pt verbalized understanding and had no further questions/concens.
[2021-01-02] MEDS: Mirtazapine 15 MG Tablet PO (21:11)
[2021-01-03] VITALS (7 sets, daily range): BP systolic 117–122; BP diastolic 72–83; PULSE 94–110; RESP 16–18; TEMP 36.6–37; O2SAT 90–99
[2021-01-03] MEDS: Phenobarbital 32.4 MG Tablet 64.8 MG PO ×3 (05:06→12:51)
[2021-01-03] MEDS: Gabapentin 300 MG Capsule PO (05:07)
[2021-01-03 05:37] LABS: Absolute Lymphocyte Count 2.23 X10^3/uL (0.83-4.51); Absolute Neutrophil Count 6.6 X10^3/uL (2.0-7.7); Basophil# 0.01 X10^3/uL; Basophil% 0.1 % (0-1); Eosinophil# 0.29 X10^3/uL; Eosinophils% 2.9 % (0-5); Hematocrit 31.7 % (37-47); Hemoglobin 10.5 g/dL (12.0-15.0); Lymphocyte # 2.23 X10^3/ul (0.83-4.51); Lymphocyte % 22.6 % (19-41); Mean Corp Hgb Conc 33.1 g/dL (32-36); Mean Corpuscular Hgb 30.2 pg (27.0-32.0); Mean Corpuscular Volume 91.1 fL (81-99); Mean Platelet Vol. 9.7 fl (6.2-12.0); Monocyte# 0.66 X10^3/uL; Monocyte% 6.7 % (0-10); NRBC Flagged by Analyzer 0 % (0-5); Neutrophil # 6.61 X10^3/uL (2.7-7.7); Neutrophil % 67.1 % (47-70); Platelet Count 168 K/mm3 (150-450); RBC Distribution Width CV 14.2 % (11.6-14.6); RBC Distribution Width SD 47.8 fl (35.1-43.9); Red Blood Count 3.48 M/mm3 (4.2-5.4); White Blood Count 9.9 K/mm3 (4.4-11.0)
[2021-01-03 06:04] LABS: Anion Gap 5 (5-15); BUN 9 mg/dL (7-18); BUN/Creat Ratio 11.3 RATIO (10-20); Calcium,Total 8.7 mg/dL (8.5-10.1); Chloride 93 mmol/L (98-107); EST Glomerular Filtration Rate 78 mL/min (>60); Est Glom Filt Rate - Afr Amer 95 mL/min (>60); Estimated Creatinine Clearance 63.23 ml/min; Glucose 94 mg/dL (74-106); Potassium 4.5 mmol/L (3.5-5.1); Sodium Level 130 mmol/L (136-145)
[2021-01-03] MEDS: Dicyclomine 10 MG Capsule PO ×2 (06:04→11:07)
[2021-01-03] MEDS: Sucralfate 1 GM Tablet PO ×2 (06:04→10:45)
[2021-01-03] MEDS: Albuterol 2.5 MG/3 ML VIAL.NEB. INHALATION (07:20)
[2021-01-03] MEDS: Budesonide Respules 0.5 MG/2 ML AMPUL.NEB. INHALATION (07:20)
[2021-01-03] MEDS: Folic Acid 1 MG Tablet PO (08:15)
[2021-01-03] MEDS: Thiamine Hydrochloride 100 MG Tablet PO (08:15)
[2021-01-03] MEDS: Polyethylene Glycol 3350 17 GM PACKET PO (10:45)
[2021-01-03] MEDS: Pantoprazole Sodium 40 MG Tablet PO (10:45)
[2021-01-03] MEDS: amLODIPine 10 MG Tablet PO (10:45)
[2021-01-03] MEDS: DULoxetine Hcl 20 MG Capsule PO (10:45)
[2021-01-03] MEDS: hydrOXYzine PAM 25 MG Capsule 50 MG PO (10:45)
[2021-01-03] MEDS: 0.9% Saline Lock 10 ML Syringe IV (10:46)
[2021-01-03] MEDS: 0.9% Normal Saline 1,000 ML 75 ML IV (10:47)
--- NOTE | 2021-01-03 11:20 | PCM.DC ---
Discharge Instructions Diet Discharge Diet: No restrictions Activity Discharge Activity: Return to Normal Activity Follow Up Care Test Results: Test results from this visit will be discussed in further detail at your follow-up appointment, if applicable. Discharge Plan Admission Admit Date/Time: 01/01/21 01:17 Primary Reason for Your Visit: Starvation ketoacidosis Attending Provider: Crystal Chung Primary Care Provider: Kellie Delarosa Instructions Patient Instructions: ED Chest Pain, Noncardiac Additional Instructions / Restrictions: Patient will also need a cane upon discharge. Discharge Orders/Prescriptions Prescriptions: Continued loratadine [Claritin] 10 mg tablet 10 mg PO DAILY PRN (Reason: Allergies) RF: 0 fluticasone furoate-vilanterol 1 EACH blister with device 1 puff inhalation DAILY RF: 0 mirtazapine 15 tablet 15 mg PO QHS RF: 0 albuterol sulfate 18 GM HFA aerosol inhaler 2 puff IH Q4H PRN (Reason: Sob &/Or Wheezing) RF: 0 hydroxyzine HCl 50 MG tablet 50 mg PO BID RF: 0 dicyclomine 10 MG capsule 10 mg PO ACHS RF: 0 pantoprazole 40 MG tablet 40 mg PO BID RF: 0 tramadol 50 MG tablet 50 mg PO BID PRN PRN (Reason: Pain 1-10 Or Fever) RF: 0 amlodipine 10 MG tablet 10 mg PO DAILY RF: 0 lisinopril 10 MG tablet 10 mg PO DAILY RF: 0 duloxetine 20 MG capsule,delayed release(DR/EC) 20 mg PO DAILY RF: 0 Referrals / Follow Up: Bert Oh MD [COURTESY STAFF PHYSICIAN] - See Referral Note (Establish care at earliest possible convenience in regards to your identified psychiatric needs. ) Kellie Delarosa DO [Primary Care Provider] - Within 2 Weeks Disposition Disposition (needs filled in before D/C Order can be placed): Home, Self Care
--- NOTE | 2021-01-03 12:27 | DS.PCM_ITS ---
Documented by User: Miguel RAHMAN 01/03/21 12:37 Providers Date of Admission: 01/01/21 Primary Care Physician: Dr. Kellie Delarosa, DO Reason For Visit: STARVATION KETOSIS Diagnosis Discharge Diagnosis (1) Starvation ketoacidosis: Status: Acute Code(s): E87.2 - Acidosis (2) YADIRA (acute kidney injury): Status: Acute Code(s): N17.9 - Acute kidney failure, unspecified (3) Acute hyponatremia: Status: Acute Code(s): E87.1 - Hypo-osmolality and hyponatremia (4) Alcohol dependence: Status: Chronic Code(s): F10.20 - Alcohol dependence, uncomplicated Medications at Discharge Home Medications loratadine 10 mg tablet 10 mg PO DAILY PRN 04/04/18 fluticasone furoate-vilanterol 1 puff INHALATION DAILY 07/16/18 albuterol sulfate 2 puff IH Q4H PRN 11/16/18 mirtazapine 15 mg PO QHS 11/16/18 dicyclomine 10 mg PO ACHS 10/17/19 hydroxyzine HCl 50 mg PO BID 10/17/19 pantoprazole 40 mg PO BID 10/17/19 amlodipine 10 mg PO DAILY 07/28/20 duloxetine 20 mg PO DAILY 07/28/20 lisinopril 10 mg PO DAILY 07/28/20 tramadol 50 mg PO BID PRN PRN 07/28/20 Hospital Course Summary of Care Provided Minutes Spent on Discharge: 35 Hospital Course: Discharge planning: Patient to be discharge home and will complete physical therapy at her home. Patient appears stable on her feet and has a normal gait, although would benefit from a cane for support. Patient was offered a prescription for a cane, patient declined and reports that she would just purchase one from [employer]. 1) starvation ketoacidosis/suspected malnutrition Patient denied addiction medicine consult. Patient has a counselor with AA and would like to continue with that counselor on her own. On admission patient reported that she had not eaten for days and drank 1/5 of vodka before admitting. Abdominal CT was unremarkable. Patient was observed eating all of h er breakfast this morning. Plan; continue regular diet with supplementation, dietary consult ordered. 2) YADIRA Resolved, creatinine currently 0.8. 3) hyponatremia Likely due to malnutrition. Patients baseline appears to be in the low 130's. Jayden laboy continue to improve with oral rehydration and food intake. 4) alcohol abuse/impending withdrawal Plan; Follow with AA counselor as identified above. Psychiatry referral included in discharge instructions as patient identified several psychiatric triggers for her drinking. 5) lactic acidosis Likely secondary to #1. Plan; as above. 6) depression Continue Cymbalta and Remeron. Establish psychiatric care as identified in discharge instructions. 7) COPD Continue albuterol and budesonide. 8) GERD Continue PPI. Patient seen by Miguel Phan PA-C, under the supervision of Dr. Chung. Physical Exam Narrative Patient is a 60-year-old female who is comfortably resting in chair eating breakfast, alert and orient x3. Reports feeling subjectively improved from yesterday. Denies chest pain, shortness of breath, palpitations, fever, chills, N/V/D. Const alert, oriented x3 and no apparent distress HEENT normocephalic, head/scalp atraumatic, hearing grossly normal bilaterally and moist oral mucous membranes Eyes PERRL, EOMs intact bilaterally and conjunctivae normal Neck no lymphadenopathy, supple and no JVD Resp normal respiratory effort, no retractions, no use of accessory muscles and clear to auscultation bilaterally Cardio regular rate, regular rhythm, no murmurs and no JVD GI normal to inspection, nondistended, normoactive bowel sounds, soft to palpation, non-tender and non-distended Extremity normal to inspection, full ROM and no clubbing, cyanosis or edema Skin no rashes or lesions noted, no wounds and skin turgor normal Neuro CN's II-XII intact bilaterally Psych affect normal Weight / BMI Weight Weight: 116 lb 9.992 oz Body Mass Index (BMI) 20.0 ABG / Lab / Microbiology Data Result Diagrams: 01/03/21 05:24 01/03/21 05:24 Laboratory: Laboratory Results - last 24 hr 01/03/21 01/03/21 05:24 05:24 WBC 9.9 RBC 3.48 L Hgb 10.5 L Hct 31.7 L MCV 91.1 MCH 30.2 MCHC 33.1 RDW Std Deviation 47.8 H RDW Coeff of Rebeca 14.2 Plt Count 168 MPV 9.7 Immature Gran % (Auto) 0.600 Neut % (Auto) 67.1 Lymph % (Auto) 22.6 [place] % (Auto) 6.7 Eos % (Auto) 2.9 Baso % (Auto) 0.1 Absolute Neuts (auto) 6.6 Absolute Lymphs (auto) 2.23 Nucleated RBC % 0 Sodium 130 L Potassium 4.5 Chloride 93 L Carbon Dioxide 32.0 Anion Gap 5 BUN 9 Creatinine 0.80 Estim Creat Clear Calc 63.23 Est GFR (MDRD) Af Amer 95 Est GFR (MDRD) Non-Af 78 BUN/Creatinine Ratio 11.3 Glucose 94 Calcium 8.7 Microbiology: Microbiology 12/31/20 22:45 Blood Culture - Preliminary Blood Culture (Wb) - Anticubital Left No growth in 48 hours. 12/31/20 22:50 Blood Culture - Preliminary Blood Culture (Wb) - Anticubital Right No growth in 48 hours. Microbiology 12/31/20 22:45 Blood Culture (Wb) - Anticubital Left Blood Culture - Preliminary No growth in 48 hours. 12/31/20 22:50 Blood Culture (Wb) - Anticubital Right Blood Culture - Preliminary No growth in 48 hours. 12/31/20 22:15 Urine, Clean Catch Urine Culture - Final Presumptive E. coli 01/01/21 00:58 Mucosa - Nose SARS-CoV-2 Antigen (Rapid) - Final D/C Instructions Discharge Diet: No restrictions Meaningful Use Info Meaningful Use Diagnoses (Choose all that apply): None applicable Discharge Plan Admission Admit Date/Time: 01/01/21 01:17 Primary Reason for Your Visit: Starvation ketoacidosis Attending Provider: Crystal Chung Primary Care Provider: Kellie Delarosa Instructions Additional Instructions / Restrictions: Patient will also need a cane upon discharge. Discharge Orders/Prescriptions Prescriptions: Continued loratadine [Claritin] 10 mg tablet 10 mg PO DAILY PRN (Reason: Allergies) RF: 0 fluticasone furoate-vilanterol 1 EACH blister with device 1 puff inhalation DAILY RF: 0 mirtazapine 15 tablet 15 mg PO QHS RF: 0 albuterol sulfate 18 GM HFA aerosol inhaler 2 puff IH Q4H PRN (Reason: Sob &/Or Wheezing) RF: 0 hydroxyzine HCl 50 MG tablet 50 mg PO BID RF: 0 dicyclomine 10 MG capsule 10 mg PO ACHS RF: 0 pantoprazole 40 MG tablet 40 mg PO BID RF: 0 tramadol 50 MG tablet 50 mg PO BID PRN PRN (Reason: Pain 1-10 Or Fever) RF: 0 amlodipine 10 MG tablet 10 mg PO DAILY RF: 0 lisinopril 10 MG tablet 10 mg PO DAILY RF: 0 duloxetine 20 MG capsule,delayed release(DR/EC) 20 mg PO DAILY RF: 0 Referrals / Follow Up: Bert Oh MD [COURTESY STAFF PHYSICIAN] - See Referral Note (Establish care at earliest possible convenience in regards to your identified psychiatric needs. ) Kellie Delarosa DO [Primary Care Provider] - Within 2 Weeks Disposition Disposition (needs filled in before D/C Order can be placed): Home, Self Care Documented by User: Dr. Crystal Chung DO 01/03/21 13:28 Providers Date of Admission: 01/01/21 Reason For Visit: STARVATION KETOSIS Medications at Discharge Home Medications loratadine 10 mg tablet 10 mg PO DAILY PRN 04/04/18 fluticasone furoate-vilanterol 1 puff INHALATION DAILY 07/16/18 albuterol sulfate 2 puff IH Q4H PRN 11/16/18 mirtazapine 15 mg PO QHS 11/16/18 dicyclomine 10 mg PO ACHS 10/17/19 hydroxyzine HCl 50 mg PO BID 10/17/19 pantoprazole 40 mg PO BID 10/17/19 amlodipine 10 mg PO DAILY 07/28/20 duloxetine 20 mg PO DAILY 07/28/20 lisinopril 10 mg PO DAILY 07/28/20 tramadol 50 mg PO BID PRN PRN 07/28/20 Hospital Course Operations None Procedures None Summary of Care Provided Minutes Spent on Discharge: 42 Hospital Course: Mrs. Tafoya is a 60-year-old white female who presented to the emergency department at [facility] on 01/01/2021 complaining of malaise and just not feeling well. She states that her p.o. intake has not been good since she had the shingles under her left breast several months ago and has had pain since then. She reported that when she does eat that she does not vomit or feel nauseated but she just does not feel well. On admission she reported that she was able to still do gardening and go to the tanning bed as she was noted to be extremely med[place]. She stated on admission that she tends on a daily basis. On admission she had a blood alcohol level of 332, a lactic acid of 30.9 and a serum creatinine of 1.87. Her serum sodium was 127 which at baseline appears to fluctuate in this range. She was admitted and noted to be in slight detox on day 2 of her admission was placed on phenobarb taper which she did well with. After IV diet hydration her serum creatinine normalized to 0.80. She was seen by physical therapy and it was recommended that she follow- up with some inpatient rehab prior to discharge but the patient really wanted to go home. She states that she ambulates with a walker outside her home and was accessed a cane for inside ambulation in her home after discharge. She was tolerating a p.o. diet without any issues. She acknowledges that she has an a lcohol dependence issue and states she has been clean for up to 9 years in the past. She does however report that her daughter 3 years ago and it seems that she may be dealing with some complicated grief with regards to this. She states she has an outpatient appointment with psychiatry already set up and follows up with AA. She did not want home health for continued therapy and stat es she would follow-up with some exercises where she tans to get stronger. She was discharged in stable condition. Physical Exam Narrative Patient states that she is eating well. She knows she needs treatment for alcoholism and states she will follow up outpatient with addiction and with psychiatry. She feels she has underlying psychiatric issues that need to be addressed to help her be successful in treating her alcoholism. A walker at home to ambulate. Const alert, oriented x3, no apparent distress and average body habitus Constitutional Narrative: Upper middle-aged white female sitting up in a chair, appears comfortable, nontoxic General Appearance: cooperative Exam Limitations: no limitations HEENT normocephalic, head/scalp atraumatic and moist oral mucous membranes Resp normal respiratory effort, no retractions, no use of accessory muscles and clear to auscultation bilaterally Resp Narrative: Diffusely diminished but clear Cardio regular rate, regular rhythm, S1 normal heart sound, S2 normal heart sound, no murmurs, no rub, no gallops, no clicks and no JVD GI normal to inspection, nondistended, normoactive bowel sounds, soft to palpation, non-tender and non-distended Extremity normal to inspection, full ROM and no clubbing, cyanosis or edema Skin no rashes or lesions noted, no wounds, skin turgor normal and no jaundice Skin Narrative: Extremely [place] Neuro oriented x3, CN's II-XII intact bilaterally, moves all extremities and no focal motor deficits Neuro Narrative: Gait is abnormal with a mildly wide base of support and slightly unsteady Sensorium / Orientation: awake and alert Speech: speech normal Psych affect normal Psych Narrative: Patient appears to have some underlying depression and anxiety, she became tearful during our exam today and states she has had follow-up with psychiatry as an outpatient ABG / Lab / Microbiology Data Result Diagrams: 01/03/21 05:24 01/03/21 05:24 Discharge Plan Admission Admit Date/Time: 01/01/21 01:17 Primary Reason for Your Visit: Starvation ketoacidosis Attending Provider: Crystal Chung Primary Care Provider: Kellie Delarosa Instructions Additional Instructions / Restrictions: Patient will also need a cane upon discharge. Discharge Orders/Prescriptions Prescriptions: Continued loratadine [Claritin] 10 mg tablet 10 mg PO DAILY PRN (Reason: Allergies) RF: 0 fluticasone furoate-vilanterol 1 EACH blister with device 1 puff inhalation DAILY RF: 0 mirtazapine 15 tablet 15 mg PO QHS RF: 0 albuterol sulfate 18 GM HFA aerosol inhaler 2 puff IH Q4H PRN (Reason: Sob &/Or Wheezing) RF: 0 hydroxyzine HCl 50 MG tablet 50 mg PO BID RF: 0 dicyclomine 10 MG capsule 10 mg PO ACHS RF: 0 pantoprazole 40 MG tablet 40 mg PO BID RF: 0 tramadol 50 MG tablet 50 mg PO BID PRN PRN (Reason: Pain 1-10 Or Fever) RF: 0 amlodipine 10 MG tablet 10 mg PO DAILY RF: 0 lisinopril 10 MG tablet 10 mg PO DAILY RF: 0 duloxetine 20 MG capsule,delayed release(/EC) 20 mg PO DAILY RF: 0 Referrals / Follow Up: Bert Oh MD [COURTESY STAFF PHYSICIAN] - See Referral Note (Establish care at earliest possible convenience in regards to your identified psychiatric needs. ) Kellie Delarosa DO [Primary Care Provider] - Within 2 Weeks Disposition Disposition (needs filled in before D/C Order can be placed): Home, Self Care Charges/Coding Visit Charges Inpatient E&M: 99050 Disch Hosp
== END 2021-01-03 14:00 | disposition home or self-care (01) ==
LOC: ED 22:15 → MS3 01-01 02:06
PROVIDERS: Physician Assistant; Emergency Provider Student in an Organized Health Care Education/Training Program; PCP Family Medicine; Visit Provider Internal Medicine
DX: E87.2 Acidosis (principal); N17.9 Acute kidney failure, unspecified; F31.9 Bipolar disorder, unspecified; J44.9 Chronic obstructive pulmonary disease, unspecified; I12.9 Hypertensive chronic kidney disease with stage 1 through stage 4 chronic kidney disease, or unspecified chronic kidney disease; N18.9 Chronic kidney disease, unspecified; F41.9 Anxiety disorder, unspecified; F17.210 Nicotine dependence, cigarettes, uncomplicated; F10.229 Alcohol dependence with intoxication, unspecified; I95.9 Hypotension, unspecified; Y90.8 Blood alcohol level of 240 mg/100 ml or more; Z79.899 Other long term (current) drug therapy; Z79.51 Long term (current) use of inhaled steroids; E87.1 Hypo-osmolality and hyponatremia; K21.9 Gastro-esophageal reflux disease without esophagitis; G89.29 Other chronic pain
CPT/HCPCS: 36415; 71045; 74176; 80048; 80053; 80307; 81001; 82077; 83605; 83735; 84100; 84439; 84443; 84484; 85025; 85610; 85730; 87040; 87086; 87088; 87186; 87426; 93005; 94640; 96360; 96361; 97110; 97162; 97166; 97530; 97802; 99218; 99285; 99406; J7030; J7050; A4216; G0378

== ENCOUNTER → 2021-01-14 11:45 | Outpatient (CLI) | payer MEDICAID, SELFPAY ==
[2021-01-14 12:39] LABS: Albumin, Serum 3.4 g/dL (3.2-5.0); BUN 10 mg/dL (7-18); BUN/Creat Ratio 10.2 RATIO (10-20); Calcium,Total 9.1 mg/dL (8.5-10.1); Chloride 94 mmol/L (98-107); Creatinine, Serum 0.98 mg/dL (0.55-1.02); EST Glomerular Filtration Rate 61 mL/min (>60); Est Glom Filt Rate - Afr Amer 74 mL/min (>60); Glucose 76 mg/dL (74-106); Phosphorus 3.9 mg/dL (2.5-4.9); Potassium 4.4 mmol/L (3.5-5.1); Sodium Level 128 mmol/L (136-145)
[2021-01-14 12:42] LABS: Protein, Urine (Random) 27.9 mg/dL (<11.9); Protein:Creat Ratio 550 mg/g CRE (0-200)
== END ==
PROVIDERS: PCP Family Medicine; Visit Provider Internal Medicine Nephrology
DX: N17.9 Acute kidney failure, unspecified (principal); R80.9 Proteinuria, unspecified
CPT/HCPCS: 36415; 80069; 82570; 84156; 87086; 87088; 87186

== ENCOUNTER 2021-01-28 20:08 | Inpatient (IN) | payer MEDICAID, SELFPAY ==
[2021-01-28 20:09] VITALS: BP 109/78; PULSE 129; RESP 18; TEMP 35.9; O2SAT 96; BMI 19.5
--- NOTE | 2021-01-28 20:35 | EKG12_ITS ---
Test Reason : SUBS ABUSE Blood Pressure : / mmHG Vent. Rate : 117 BPM Atrial Rate : 117 BPM P-R Int : 170 ms QRS Dur : 072 ms QT Int : 320 ms P-R-T Axes : 079 088 075 degrees QTc Int : 446 ms Sinus tachycardia Nonspecific T wave abnormality Abnormal ECG Confirmed by PATRICE NARVAEZ, IVETT ([id number]), story editor MARLYN NAVARRO ([id number]) on 02/01/2021 1:19:53 PM Referred By: GREGG Confirmed By:IVETT IBRAHIM MD
--- NOTE | 2021-01-28 20:36 | EDS_ITS ---
HPI History of Present Illness Chief Complaint: Substance Abuse Detail of Chief Complaint: Requesting detox from alcohol Informant: patient Narrative Narrative: Patient presents to the emergency department stating that she wants detox from alcohol. Patient has history of alcohol abuse and states that she has been drinking for weeks. She normally drinks about 1/5 of vodka daily. She is complaining of nausea and vomiting. Patient has not been eating normally. She denies feeling suicidal or homicidal. She denies any blood in her vomitus. She denies black tarry stools. Patient has history of GERD, anxiety, bipolar disorder. Last alcoholic drink was this evening at 5 PM. Prior similar symptoms: Yes PFSH PFSH Medical History Abnormal mammogram Alcohol abuse Anxiety Bipolar 1 disorder COPD (chronic obstructive pulmonary disease) GERD (gastroesophageal reflux disease) Hepatotoxicity, secondary to ETOH Insomnia Smoker Home Medications loratadine 10 mg tablet 10 mg PO DAILY PRN 04/04/18 [History Last Taken 12/31/20 20:30] fluticasone furoate-vilanterol 1 puff INHALATION DAILY 07/16/18 [History Last Taken 12/31/20 09:00] albuterol sulfate 2 puff IH Q4H PRN 11/16/18 [History Last Taken 07/28/20] mirtazapine 15 mg PO QHS 11/16/18 [History Last Taken 12/31/20 20:30] dicyclomine 10 mg PO ACHS 10/17/19 [History Last Taken 12/31/20 20:30] hydroxyzine HCl 50 mg PO BID 10/17/19 [History Last Taken 12/31/20 20:30] pantoprazole 40 mg PO BID 10/17/19 [History Last Taken 12/31/20 20:30] amlodipine 5 mg PO DAILY 07/28/20 [History Last Taken 12/31/20 20:30] duloxetine 20 mg PO DAILY 07/28/20 [History Last Taken 12/31/20 20:30] lisinopril 15 mg PO DAILY 07/28/20 [History Last Taken 12/31/20 20:30] sucralfate 1 g PO ACHS 01/28/21 [History Last Taken Unknown] Allergy/AdvReac Type Severity Reaction Status Date / Time Penicillins Allergy SOB, cold Verified 01/28/21 20:09 sweats Family History Mother Hypertension Thyroid disorder CVA (cerebral vascular accident) Sister Heart disease Surgical History History of History of hysterectomy Social History Smoking Status: Current every day smoker tobacco type: cigarettes substance use type: does not use ROS ROS ED Constitutional Constitutional ED: Reports systems reviewed and no addt'l complaints, except as documented; Denies body ache(s), change in weight or chills Eyes Eyes: Denies acute decrease in peripheral vision, change in vision, double vi ramírez or loss of vision ENT ENT ED: Reports none; Denies ear pain, lip swelling, loss taste/smell, neck pain, otalgia or sore throat Cardiovascular Cardiovascular: Reports none; Denies abdominal pain, chest pain with activity, leg edema, lightheadedness, palpitations, rapid heart rate or syncope Respiratory/Chest Respiratory/Chest: Reports none; Denies change in mental status, dry cough, dyspnea, hemoptysis, shortness of breath at rest or shortness of breath with exertion Gastrointestinal Gastrointestinal: Reports none, nausea and vomiting; Denies abdominal pain, change in stool character, diarrhea, hematemesis, hematochezia, melena or rectal bleeding Genitourinary Genitourinary ED: Reports none; Denies abdominal discomfort, anuria, dysuria, genital pain or polyuria Musculoskeletal Musculoskeletal: Reports none; Denies arthralgias, back pain, difficulty walking, extremity pain, muscle weakness or myalgias Integumentary Reports none; Denies abscess or rash Neurologic Neurologic: Reports none; Denies abnormal gait, confusion, focal weakness, frequent falls, headache(s), loss of vision, numbness, paresthesias, radicular pain, vertigo or weakness Psychiatric Psychiatric: Reports systems reviewed and no addt'l complaints, except as documented and none; Denies behavioral changes, confusion, difficulty concentrating, hallucinations, suicidal ideation, tactile hallucinations or visual hallucinations Endocrine Endocrinology: Denies none, cold intolerance, excessive sweating, fatigue or heat intolerance Hematologic/Lymphatic Hematologic/Lymphatic: Reports none; Denies anemia, easy bleeding or easy bruising Allergic/Immunologic Allergic/Immunologic ED: Denies as per HPI, none, lip swelling, mouth swelling, throat swelling, tongue swelling or hives EXAM Physical Exam Const Vital Signs: 01/28/21 20:09 Temperature 96.7 F L Temperature Source Temporal Pulse Rate 129 H Respiratory Rate 18 Blood Pressure 109/78 Blood Pressure Mean 88 Pulse Ox 96 Oxygen Delivery Method Room Air Positive well nourished and well developed General Appearance ED: well developed and NAD HEENT Reports TM's clear and moist mucous membranes normocephalic and atraumatic; Negative for trauma or tenderness Tympanic Membrane ED: Yes TM's clear Eyes PERRL and EOMs intact bilaterally General Eye ED: Negative for pale conjunctiva or scleral icterus Neck no lymphadenopathy, supple and no JVD General: Negative for tenderness Chest Wall inspection of chest normal and palpation of chest normal Chest: Negative for tenderness Resp normal respiratory effort and clear to auscultation bilaterally Effort and Inspection: Negative for respiratory distress or pain with movement Auscultation: Negative for rhonchi, wheezes or diminished lung sounds Cardio regular rate, regular rhythm, S1 normal heart sound, S2 normal heart sound and no murmurs Peripheral Pulses: pulses 2+ throughout GI normal to inspection, nondistended, normoactive bowel sounds, soft to palpation, non-tender, non-distended and no masses Back/Spine no CVA tenderness and no thoracic nor lumbar tenderness Extremity normal to inspection General Extremety ED: Negative for edema General Extremity: Negative for edema Neuro oriented x3, CN's II-XII intact bilaterally, no sensory deficits noted and gait normal Sensorium / Orientation: awake, alert, oriented to person, oriented to place and oriented to time Motor Exam: strength 5/5 throughout and strength abnormal Psych mental status grossly normal Skin no rashes or lesions noted and no wounds MDM MDM MDM Narrative Medical decision making narrative: Patient Lab Data Labs: Laboratory Results - last 24 hr 01/28/21 01/28/21 01/28/21 20:30 20:30 20:30 WBC 7.4 RBC 4.05 L Hgb 12.4 Hct 36.9 L MCV 91.1 MCH 30.6 MCHC 33.6 RDW Std Deviation 50.5 H RDW Coeff of Rebeca 15.2 H Plt Count 234 MPV 8.8 Immature Gran % (Auto) 0.500 Neut % (Auto) 79.0 H Lymph % (Auto) 16.2 L Mcleod % (Auto) 4.2 Eos % (Auto) 0.0 Baso % (Auto) 0.1 Absolute Neuts (auto) 5.9 Absolute Lymphs (auto) 1.20 Nucleated RBC % 0 Sodium 135 L Potassium 3.8 Chloride 91 L Carbon Dioxide 15.0 L Anion Gap 29 H BUN 15 Creatinine 1.34 H Estim Creat Clear Calc 36.90 Est GFR (MDRD) Af Amer 52 L Est GFR (MDRD) Non-Af 43 L BUN/Creatinine Ratio 11.2 Glucose 60 L Calcium 9.1 Total Bilirubin 0.40 AST 63 H ALT 40 Alkaline Phosphatase 85 Troponin I High Sens 10.0 Total Protein 8.4 H Albumin 4.1 Globulin 4.3 H Albumin/Globulin Ratio 1.0 Lipase 383 Ur Drug Screen Comment Ethyl Alcohol 293.0 01/28/21 21:05 WBC RBC Hgb Hct MCV MCH MCHC RDW Std Deviation RDW Coeff of Rebeca Plt Count MPV Immature Gran % (Auto) Neut % (Auto) Lymph % (Auto) [place] % (Auto) Eos % (Auto) Baso % (Auto) Absolute Neuts (auto) Absolute Lymphs (auto) Nucleated RBC % Sodium Potassium Chloride Carbon Dioxide Anion Gap BUN Creatinine Estim Creat Clear Calc Est GFR (MDRD) Af Amer Est GFR (MDRD) Non-Af BUN/Creatinine Ratio Glucose Calcium Total Bilirubin AST ALT Alkaline Phosphatase Troponin I High Sens Total Protein Albumin Globulin Albumin/Globulin Ratio Lipase Ur Drug Screen Comment Ethyl Alcohol Discharge Plan Triage Chief Complaint: Substance Abuse ED Provider: Mauro Ward Dx/Rx/DC Orders Clinical Impression: Alcohol intoxication, Withdrawn from alcohol detoxification program Prescriptions: No Action loratadine [Claritin] 10 mg tablet 10 mg PO DAILY PRN (Reason: Allergies) RF: 0 fluticasone furoate-vilanterol 1 EACH blister with device 1 puff inhalation DAILY RF: 0 mirtazapine 15 tablet 15 mg PO QHS RF: 0 albuterol sulfate 18 GM HFA aerosol inhaler 2 puff IH Q4H PRN (Reason: Sob &/Or Wheezing) RF: 0 hydroxyzine HCl 50 MG tablet 50 mg PO BID RF: 0 dicyclomine 10 MG capsule 10 mg PO ACHS RF: 0 pantoprazole 40 MG tablet 40 mg PO BID RF: 0 amlodipine 10 MG tablet 5 mg PO DAILY RF: 0 lisinopril 10 MG tablet 15 mg PO DAILY RF: 0 duloxetine 20 MG capsule,delayed release(DR/EC) 20 mg PO DAILY RF: 0 sucralfate 1 gram tablet 1 g PO ACHS RF: 0 Primary Care Provider: Kellie Delarosa Referrals: Kellie Delarosa DO [Primary Care Provider] - Disposition Disposition: Acute Care [facility]
[2021-01-28 20:45] LABS: Absolute Neutrophil Count 5.9 X10^3/uL (2.0-7.7); Basophil# 0.01 X10^3/uL; Basophil% 0.1 % (0-1); Hematocrit 36.9 % (37-47); Hemoglobin 12.4 g/dL (12.0-15.0); Lymphocyte % 16.2 % (19-41); Mean Corp Hgb Conc 33.6 g/dL (32-36); Mean Corpuscular Hgb 30.6 pg (27.0-32.0); Mean Corpuscular Volume 91.1 fL (81-99); Mean Platelet Vol. 8.8 fl (6.2-12.0); Monocyte# 0.31 X10^3/uL; Monocyte% 4.2 % (0-10); NRBC Flagged by Analyzer 0 % (0-5); Neutrophil # 5.85 X10^3/uL (2.7-7.7); Platelet Count 234 K/mm3 (150-450); RBC Distribution Width CV 15.2 % (11.6-14.6); RBC Distribution Width SD 50.5 fl (35.1-43.9); Red Blood Count 4.05 M/mm3 (4.2-5.4); White Blood Count 7.4 K/mm3 (4.4-11.0)
[2021-01-28] MEDS: Ondansetron 4 MG/2 ML Vial IV (20:49)
[2021-01-28] MEDS: 0.9% Normal Saline 1,000 ML 1000 ML IV (20:49)
[2021-01-28 21:08] LABS: AST(SGOT) 63 U/L (15-37); Alanine Aminotransfer ALT/SGPT 40 U/L (13-56); Albumin, Serum 4.1 g/dL (3.2-5.0); Alkaline Phosphatase 85 U/L (45-117); Anion Gap 29 (5-15); BUN 15 mg/dL (7-18); BUN/Creat Ratio 11.2 RATIO (10-20); Calcium,Total 9.1 mg/dL (8.5-10.1); Chloride 91 mmol/L (98-107); Creatinine, Serum 1.34 mg/dL (0.55-1.02); EST Glomerular Filtration Rate 43 mL/min (>60); Est Glom Filt Rate - Afr Amer 52 mL/min (>60); Globulin 4.3 g/dL (2.2-4.2); Glucose 60 mg/dL (74-106); Lipase 383 U/L (73-393); Potassium 3.8 mmol/L (3.5-5.1); Protein, Total 8.4 g/dL (6.4-8.2); Sodium Level 135 mmol/L (136-145)
--- NOTE | 2021-01-28 21:32 | HP.PCM.HOS_ITS ---
HPI - General General Date of Admission: 01/28/21 Date of Service: 01/28/21 Chief Complaint: Alcohol abuse HPI Narrative ANISA PABLO, is a 60 F with a significant history of hypertension; tobacco abuse and alcohol abuse who presents to the emergency department with help from alcohol detoxification. She reports drinking 1/5 of vodka every day. She has been drinking for the past 30 years. She has been to rehabs. She reported she was at rehab many years ago. Last time she drank was about 3 hours prior to presentation. At the emergency department she developed withdrawal symptoms. She reported her withdrawal symptoms as tremors; headache; nausea; and vomiting. Further she reports depression and anxiety. She denies any suicidal or homicidal ideation. He reported that about 2 weeks ago he was treated for kidney infection. Reportedly she was given antibiotics. Her lisinopril was stopped at that time by her internet network specialist, Dr. Carli Chung. [facility] Medical History Abnormal mammogram Alcohol abuse Anxiety Bipolar 1 disorder COPD (chronic obstructive pulmonary disease) GERD (gastroesophageal reflux disease) Hepatotoxicity, secondary to ETOH Insomnia Smoker Home Medications loratadine 10 mg tablet 10 mg PO DAILY PRN 04/04/18 [History Last Taken 12/31/20 20:30] fluticasone furoate-vilanterol 1 puff INHALATION DAILY 07/16/18 [History Last Taken 01/27/21] albuterol sulfate 2 puff IH Q4H PRN 11/16/18 [History Last Taken 01/27/21] mirtazapine 15 mg PO QHS 11/16/18 [History Last Taken 01/27/21] dicyclomine 10 mg PO ACHS 10/17/19 [History Last Taken 01/27/21] hydroxyzine HCl 50 mg PO BID 10/17/19 [History Last Taken 01/27/21] pantoprazole 40 mg PO BID 10/17/19 [History Last Taken 01/26/21] amlodipine 5 mg PO DAILY 07/28/20 [History Last Taken 01/27/21] duloxetine 20 mg PO DAILY 07/28/20 [History Last Taken 01/27/21] sucralfate 1 g PO ACHS 01/28/21 [History Last Taken 01/27/21] Allergy/AdvReac Type Severity Reaction Status Date / Time Penicillins Allergy SOB, cold Verified 01/28/21 20:09 sweats Family History Mother Hypertension Thyroid disorder CVA (cerebral vascular accident) Sister Heart disease Surgical History History of History of hysterectomy Social History Smoking Status: Current every day smoker tobacco type: cigarettes substance use type: does not use ROS ROS Narrative Constitutional: Reports anorexia and change in weight Eyes: Denies blurry vision, change in eye color, change in vision, discharge from eye(s), double vision, erythema, eye pain, loss of vision or other HEENT: She reports headaches. Denies abnormal hearing, dysphagia, ear pain, epistaxis, hearing loss, nasal congestion, nasal discharge, post nasal drip, sinus pressure, sore throat or other Cardiovascular: Denies chest pain. Denies dyspnea on exertion, orthopnea and paroxysmal nocturnal dyspnea Respiratory/Chest: Denies cough, excessive phlegm production, shortness of breath with exertion and wheezing Gastrointestinal: Denies abdominal pain, coffee ground emesis, constipation, diarrhea, dyspepsia, hematemesis, hematochezia, loose stools, melena. She reports nausea, and vomiting. Genitourinary: Denies burning urination, difficulty urinating, dysuria, hematuria, nocturia, urinary frequency, urinary hesitancy, urinary incontinence, urinary urgency or other Musculoskeletal: Denies arthralgias, back pain, joint pain, joint stiffness, joint swelling, myalgias, neck pain or other Neurologic: She reports tremors. Denies abnormal gait, abnormal speech, confusion, disequilibrium, dizziness, focal weakness, headache(s), numbness, paresthesias, seizure-like activity, seizures, syncope, tingling, or other Psychiatric: Denies anxiety, depression, homicidal ideation, suicidal ideation or other Endocrinology: Denies change in body appearance, cold intolerance, excessive sweating, heat intolerance, polydipsia, polyuria or other Hematologic/Lymphatic: Denies anemia, easy bleeding, easy bruising, lymphadenopathy or other Integumentary: Denies ulcer on buttocks. Allergic/Immunologic: Denies rhinitis, hives, eczema, asthma or other Vital Signs Vital Signs Vital Signs: 01/28/21 20:09 Temperature 96.7 F L Temperature Source Temporal Pulse Rate 129 H Respiratory Rate 18 Blood Pressure 109/78 Blood Pressure Mean 88 Pulse Ox 96 Oxygen Delivery Method Room Air Weight Weight: 51.71 kg Body Mass Index (BMI) 19.5 Physical Exam Narrative Physical exam: General: Well-nourished, well-developed, no acute distress Head: Normocephalic, atraumatic, no tenderness Eyes: PERRLA, EOMI ENT, no trauma, moist mucous membranes, no rhinorrhea Neck: Nontender, full range of motion, no spinal tenderness, deformities, step- off CVS: Regular rate and rhythm Respiratory no acute distress, clear to auscultation bilaterally, chest wall nontender, no wheezing Abdomen: Soft, nontender, nondistended, normal bowel sounds, no masses : Deferred Back: Nontender, no CVA tenderness, no midline spinal tenderness, deformities, step-offs Extremities: Nontender full range of motion, no trauma Skin: Normal color, no trauma, abrasions Neuro: Alert, oriented, cranial nerves II through XII grossly intact. Psychiatry: Normal mood. Normal affect. Results Lab / Micro Data Result Diagrams: 01/28/21 20:30 01/28/21 20:30 Labs: Laboratory Results - last 24 hr 01/28/21 20:30: WBC 7.4, RBC 4.05 L, Hgb 12.4, Hct 36.9 L, MCV 91.1, MCH 30.6, MCHC 33.6, RDW Std Deviation 50.5 H, RDW Coeff of Rebeca 15.2 H, Plt Count 234, MPV 8.8, Immature Gran % (Auto) 0.500, Neut % (Auto) 79.0 H, Lymph % (Auto) 16.2 L, [place] % (Auto) 4.2, Eos % (Auto) 0.0, Baso % (Auto) 0.1, Absolute Neuts (auto) 5 .9, Absolute Lymphs (auto) 1.20, Nucleated RBC % 0 01/28/21 20:30: Sodium 135 L, Potassium 3.8, Chloride 91 L, Carbon Dioxide 15.0 L, Anion Gap 29 H, BUN 15, Creatinine 1.34 H, Estim Creat Clear Calc 36.90, Est GFR (MDRD) Af Amer 52 L, Est GFR (MDRD) Non-Af 43 L, BUN/Creatinine Ratio 11.2, Glucose 60 L, Calcium 9.1, Total Bilirubin 0.40, AST 63 H, ALT 40, Alkaline Anders sphatase 85, Troponin I High Sens 10.0, Total Protein 8.4 H, Albumin 4.1, Globulin 4.3 H, Albumin/Globulin Ratio 1.0, Lipase 383 01/28/21 20:30: Ethyl Alcohol 293.0 01/28/21 21:05: Ur Drug Screen Comment Assessment & Plan Assessment/Plan (1) Alcohol abuse: (2) YADIRA (acute kidney injury): PLAN: Alcohol dependence and desire for detoxification Patient be started on phenobarbital and other adjunctive medications: Gabapentin as needed; dicyclomine as needed; Vistaril as needed; Imodium as needed; trazodone as needed; Zofran as needed; scheduled thiamine; and schedule folic acid. Monitor CIWA score YADIRA Review of medical department labs showed creatinine of 1.34. Baseline creatinine is less than 1. Gentle IV hydration ordered. Trend BMP. Tobacco abuse Counseled Nicotine patch prescribed. DVT prophylaxis Low risk Encourage to ambulate Charges/Coding Visit Charges Inpatient E&M: 27455 Init Hosp L3
--- NOTE | 2021-01-28 21:35 | CM.ED ---
SOCIAL WORK Referral Source: Self-referral Reason for Consult: Substance Abuse-requesting detox from alcohol Met with patient in room. Introduced role and reason for referral. Patient reports has been through detox in the past. Patient states last drink was at 5pm. Patient signed RAMP agreement and denies any questions or concerns. Call to [facility] Treatment Navigator to update on admission. Plan: Admit to NOEMÍ Johnson, BILLET GRINDER, HEALTH CARE MARKETING MANAGER
[2021-01-28 21:56] VITALS: BP 146/71; PULSE 117; RESP 18; TEMP 36.8; O2SAT 97
[2021-01-28 22:11] VITALS: BMI 19.2
[2021-01-28 22:16] LABS: Amphetamine Urine VISTA NEGATIVE (<1000 ng/mL); Barbiturate Urine VISTA NEGATIVE (< 200 ng/mL); Benzodiazepine Urine VISTA NEGATIVE (< 200 ng/mL); Cocaine Urine VISTA NEGATIVE (< 300 ng/mL); Ecstacy Urine VISTA NEGATIVE (< 500 ng/mL); Methadone Urine VISTA NEGATIVE (< 300 ng/mL); PCP Urine VISTA NEGATIVE (< 25 ng/mL); THC Urine VISTA NEGATIVE (< 50 ng/mL); Vista UDS pH Range 5
[2021-01-28 22:28] VITALS: BP 112/82; PULSE 121; RESP 18; TEMP 37; O2SAT 99
[2021-01-28] MEDS: 0.9% Normal Saline 1,000 ML 100 ML IV (22:37)
[2021-01-28] MEDS: Phenobarbital 32.4 MG Tablet 64.8 MG PO (22:37)
[2021-01-28] MEDS: Dicyclomine 10 MG Capsule PO (22:38)
[2021-01-28] MEDS: hydrOXYzine PAM 25 MG Capsule 50 MG PO (22:38)
[2021-01-28] MEDS: Sucralfate 1 GM Tablet PO (22:38)
[2021-01-28] MEDS: Pantoprazole Sodium 40 MG Tablet PO (22:39)
[2021-01-28] MEDS: Mirtazapine 15 MG Tablet PO (22:39)
[2021-01-28] MEDS: Ondansetron 8 MG Tablet PO (22:45)
[2021-01-28] MEDS: Acetaminophen 325 MG Tablet 650 MG PO (22:53)
[2021-01-29] VITALS (9 sets, daily range): BP systolic 103–151; BP diastolic 52–75; PULSE 74–111; RESP 16–18; TEMP 36.7–37.2; O2SAT 93–99
[2021-01-29] MEDS: Phenobarbital 32.4 MG Tablet 64.8 MG PO ×6 (01:41→22:02)
[2021-01-29] MEDS: Gabapentin 300 MG Capsule PO ×2 (01:41→11:24)
[2021-01-29] MEDS: Acetaminophen 325 MG Tablet 650 MG PO ×3 (05:11→17:04)
[2021-01-29] MEDS: 0.9% Normal Saline 1,000 ML 100 ML IV ×2 (06:17→17:04)
[2021-01-29] MEDS: Thiamine Hydrochloride 100 MG Tablet PO (06:18)
[2021-01-29] MEDS: Folic Acid 1 MG Tablet PO (06:18)
[2021-01-29] MEDS: Sucralfate 1 GM Tablet PO ×4 (06:18→21:57)
[2021-01-29] MEDS: Dicyclomine 10 MG Capsule PO ×4 (06:18→21:57)
--- NOTE | 2021-01-29 07:12 | PCM.PN.HOSP ---
Subjective Subjective No new issues overnight. CIWA was of 5. Objective Data Objective Data Vital Signs: Vital Signs Temp Pulse Resp BP Pulse Ox 98.9 F 104 H 16 130/58 H 93 01/29/21 06:09 01/29/21 06:09 01/29/21 06:09 01/29/21 06:09 01/29/21 06:09 Oxygen Delivery Method Room Air Weight: 112 lb 3.445 oz Body Mass Index (BMI) 19.2 Intake & Output: Intake and Output for Last 24 Hours 01/28/21 01/29/21 01/30/21 03:59 03:59 03:59 Intake Total 1000 / 1000 1766.67 / 1766.67 Balance 1000 / 1000 1766.67 / 1766.67 Lab / Micro Data Result Diagrams: 01/28/21 20:30 01/28/21 20:30 Labs: Laboratory Results - last 24 hr 01/28/21 20:30: WBC 7.4, RBC 4.05 L, Hgb 12.4, Hct 36.9 L, MCV 91.1, MCH 30.6, MCHC 33.6, RDW Std Deviation 50.5 H, RDW Coeff of Rebeca 15.2 H, Plt Count 234, MPV 8.8, Immature Gran % (Auto) 0.500, Neut % (Auto) 79.0 H, Lymph % (Auto) 16.2 L, [place] % (Auto) 4.2, Eos % (Auto) 0.0, Baso % (Auto) 0.1, Absolute Neuts (auto) 5.9, Absolute Lymphs (auto) 1.20, Nucleated RBC % 0 01/28/21 20:30: Sodium 135 L, Potassium 3.8, Chloride 91 L, Carbon Dioxide 15.0 L, Anion Gap 29 H, BUN 15, Creatinine 1.34 H, Estim Creat Clear Calc 36.90, Est GFR (MDRD) Af Amer 52 L, Est GFR (MDRD) Non-Af 43 L, BUN/Creatinine Ratio 11.2, Glucose 60 L, Calcium 9.1, Total Bilirubin 0.40, AST 63 H, ALT 40, Alkaline Phosphatase 85, Troponin I High Sens 10.0, Total Protein 8.4 H, Albumin 4.1, Globulin 4.3 H, Albumin/Globulin Ratio 1.0, Lipase 383 01/28/21 20:30: Ethyl Alcohol 293.0 01/28/21 21:05: Urine Opiates Screen NEGATIVE, Urine Methadone Screen NEGATIVE, Ur Barbiturates Screen NEGATIVE, Ur Phencyclidine Scrn NEGATIVE, Ur Amphetamines Screen NEGATIVE, U Methamphetamin-MDMA NEGATIVE, U Benzodiazepines Scrn NEGATIVE, Urine Cocaine Screen NEGATIVE, U Cannabinoids Screen NEGATIVE, Ur Drug Screen Comment Physical Exam Const alert, oriented x3 and no apparent distress General Appearance: cooperative HEENT normocephalic and moist oral mucous membranes Eyes PERRL, EOMs intact bilaterally and conjunctivae normal Neck supple and no JVD Resp normal respiratory effort, no retractions, no use of accessory muscles and clear to auscultation bilaterally Auscultation: Negative for crackles, rales, rhonchi or wheezes Cardio regular rate, regular rhythm, S1 normal heart sound, S2 normal heart sound and no murmurs GI soft to palpation, non-tender and non-distended; Negative for hepatosplenomegaly Extremity no clubbing, cyanosis or edema Skin no rashes or lesions noted Neuro no focal motor deficits and no sensory deficits noted Psych affect normal Appearance: appropriate Assessment & Plan Assessment/Plan (1) Alcohol abuse: (2) YADIRA (acute kidney injury): PLAN: 1. Alcohol withdrawal/nicotine abuse -Continue with alcohol withdrawal protocol -Continue to monitor CIWAs -Follow-up with 180 as an outpatient -Counseled cessation, continue the nicotine patch 2. YADIRA -Creatinine on admission was 1.34, her baseline is less than 1 -We will continue to monitor and provide IV hydration as necessary DVT: Ambulation Charges/Coding Visit Charges Inpatient E&M: 06550 Subs Hosp L2
[2021-01-29 07:15] LABS: Anion Gap 21 (5-15); BUN 16 mg/dL (7-18); BUN/Creat Ratio 15.5 RATIO (10-20); Calcium,Total 8.1 mg/dL (8.5-10.1); Chloride 96 mmol/L (98-107); Creatinine, Serum 1.03 mg/dL (0.55-1.02); EST Glomerular Filtration Rate 58 mL/min (>60); Est Glom Filt Rate - Afr Amer 71 mL/min (>60); Estimated Creatinine Clearance 47.26 ml/min; Glucose 49 mg/dL (74-106); Potassium 4.2 mmol/L (3.5-5.1); Sodium Level 131 mmol/L (136-145)
[2021-01-29] MEDS: Albuterol 2.5 MG/3 ML VIAL.NEB. INHALATION ×3 (07:16→19:04)
[2021-01-29] MEDS: Budesonide Respules 0.5 MG/2 ML AMPUL.NEB. INHALATION ×2 (07:16→19:03)
[2021-01-29] MEDS: DULoxetine Hcl 20 MG Capsule PO (10:19)
[2021-01-29] MEDS: Enoxaparin 40 MG/0.4 ML Syringe SC (10:20)
[2021-01-29] MEDS: Pantoprazole Sodium 40 MG Tablet PO ×2 (10:20→21:57)
[2021-01-29] MEDS: amLODIPine 5 MG Tablet PO (10:20)
[2021-01-29] MEDS: hydrOXYzine PAM 25 MG Capsule 50 MG PO ×2 (10:21→21:57)
--- NOTE | 2021-01-29 12:24 | CASEMGMT ---
Social Work Note Pt is RAMP pt. Ashvin with [employer] at [facility] to see pt. sAhvin states pt mentioned to her that she may need to go to a SNF at discharge. SW ordered PT/OT. PT/OT stating pt is fine to return home and pt stated to them that she felt safe to return home to a friend's house. PT/OT stated pt could do outpatient therapy for strengthening if pt wanted to. DWAYNE updated RN CM. Lily Solano CUT OFF WORKER, EXTERIOR DESIGNER
--- NOTE | 2021-01-29 12:24 | ADDICTION ---
This poem writer met with PT to conduct ASAM, MSE, AUDIT assessments and to plan for d/c. All assessments completed. PT declined d/c planning noting that she will decide and tell this poem writer tomorrow. This poem writer will discuss discharge planning on 01/30.
--- NOTE | 2021-01-29 14:08 | CASEMGMT ---
Pt's friend, Víctor Garnica([phone]) called in to speak w/SW regarding upcoming appointments pt has for disability. Víctor states pt has an appointment today she cannot get to since she is in the hospital, and that she has two appointments in February that need rescheduled. DWAYNE explained to Víctor that pt does not have a phone and so cannot make phone calls. Pt states he is aware, but is wondering if SW can assist pt. SW explained will go speak w/pt. Víctor also gave SW the number to pt's adjudicator, he states this would be the number to call for the appointments. ([phone]). SW met w/pt in room, explained to her Víctor called in regarding upcoming appointments for disability. SW explained we can call the adjudicator together for the appointment today, but she will need to follow up after her hospitalization regarding her appointments in February. Pt states understanding. SW called the above number and explained pt will be missing her appointment today as she is in the hospital, then put pt on the phone. After pt got off the phone, she states this was not the right number to call to cancel today, but that the nurse called this morning and left a message at the doctor's office letting them know that she would not be there. Pt then asked if SW will call Víctor back to make sure he understands she cannot call him, and to update him . SW explained will do so. DWAYNE called Víctor back, reiterated to him pt cannot call him, he states he knows. DWAYNE let him know we called the adjudicator but the RN had already called the doctor's office this morning to let them know pt would not be there today. Víctor then asked SW to let pt know he spoke w/the installment dealer who cancelled the February appointments. DWAYNE explained to Víctor that pt does not have access to a phone while here so she can concentrate on recovering and feeling better, so SW explained he can tell her all of this once she is home. Víctor states understanding. DEJAH Soria
[2021-01-29] MEDS: Mirtazapine 15 MG Tablet PO (21:57)
--- NOTE | 2021-01-29 22:05 | CASEMGMT ---
SW Note Referral Source: MS3 DWAYNE Referral Reason: Patient is not eligible for SNF SW met with patient. SW updated patient that she is not eligible for SNF. Patient said I am alright with that. Patient was advised that CM will be talking to her about outpatient therapy. Pateint said that she does the exercises that the PT/OT staff have taught her and she does them. Patient said that she has 2 little steps into the trailer. SW advised pateint to speak to the casemanager regarding her discharge needs. Patient said I might even go in to sober living. SW will remain available if needs arise. Plan: Home with Outpatient PT/OT or Sober Living Jasmin CASAS
[2021-01-30] VITALS (10 sets, daily range): BP systolic 120–148; BP diastolic 68–93; PULSE 84–108; RESP 18–20; TEMP 36.6–36.7; O2SAT 97–100
[2021-01-30] MEDS: Phenobarbital 32.4 MG Tablet 64.8 MG PO ×6 (02:18→22:17)
[2021-01-30] MEDS: Acetaminophen 325 MG Tablet 650 MG PO ×3 (02:19→22:30)
[2021-01-30] MEDS: 0.9% Normal Saline 1,000 ML 100 ML IV (03:54)
[2021-01-30] MEDS: Sucralfate 1 GM Tablet PO ×4 (06:17→22:18)
[2021-01-30] MEDS: Dicyclomine 10 MG Capsule PO ×4 (06:17→22:18)
--- NOTE | 2021-01-30 07:09 | PCM.PN.HOSP ---
Subjective Subjective No new issues overnight. CIWA of a 4 overnight Objective Data Objective Data Vital Signs: Vital Signs Temp Pulse Resp BP Pulse Ox 98.1 F 91 18 124/68 H 99 01/30/21 02:15 01/30/21 02:15 01/30/21 02:15 01/30/21 02:15 01/30/21 02:15 Oxygen Delivery Method Room Air Weight: 112 lb 3.445 oz Body Mass Index (BMI) 19.2 Intake & Output: Intake and Output for Last 24 Hours 01/29/21 01/30/21 01/31/21 03:59 03:59 03:59 Intake Total 1000 / 1000 4996.67 / 4996.67 200 / 200 Balance 1000 / 1000 4996.67 / 4996.67 200 / 200 Medical Nutrition Assessment Dietitian: Nutrition Therapy Diagnosis Start: 01/29/21 10:44 Freq: Status: Active Protocol: Document 01/29/21 10:59 AG (Rec: 01/29/21 10:59 AG [id number]) Nutrition Malnutrition Evidence of Malnutrition Exists Yes Malnutrition (severe): Social/Behavioral/ Environmental Evidenced By Suboptimal Energy Intake ( Severe),Weight Loss (Severe) Clinical Problem Chronic Disease or Condition Related Malnutrition Etiology severe malnutrition related to inadequate protein/calorie intake d/t alcohol abuse, shingles pain Signs/Symptoms as evidenced by pt reports of consuming < 50% of estimated nutritional needs x 6 months, no PO intake x 1 week; unintentional wt loss of 24.4# /18% x 6 months; BMI 19.3 Status Active Problem Recommendation Dietitian Recommendations/Changes Will change diet to regular given signs/symptoms of malnutrition; continue 120mL ensure enlive 4x/day. Lab / Micro Data Result Diagrams: 01/28/21 20:30 01/29/21 05:25 Labs: Laboratory Results - last 24 hr 01/29/21 05:25: Sodium 131 L, Potassium 4.2, Chloride 96 L, Carbon Dioxide 14.0 L, Anion Gap 21 H, BUN 16, Creatinine 1.03 H, Estim Creat Clear Calc 47.26, Est GFR (MDRD) Af Amer 71, Est GFR (MDRD) Non-Af 58 L, BUN/Creatinine Ratio 15.5, Glucose 49 L, Calcium 8.1 L Physical Exam Const alert, oriented x3 and no apparent distress General Appearance: cooperative HEENT normocephalic and moist oral mucous membranes Eyes PERRL, EOMs intact bilaterally and conjunctivae normal Neck supple and no JVD Resp normal respiratory effort, no retractions, no use of accessory muscles and clear to auscultation bilaterally Auscultation: Negative for crackles, rales, rhonchi or wheezes Cardio regular rate, regular rhythm, S1 normal heart sound, S2 normal heart sound and no murmurs GI soft to palpation, non-tender and non-distended; Negative for hepatosplenomegaly Extremity no clubbing, cyanosis or edema Skin no rashes or lesions noted Neuro no focal motor deficits and no sensory deficits noted Psych affect normal Appearance: appropriate Assessment & Plan Assessment/Plan (1) Alcohol abuse: (2) YADIRA (acute kidney injury): PLAN: 1. Alcohol withdrawal/nicotine abuse -Continue with alcohol withdrawal protocol -Continue to monitor CIWAs -Follow-up with 180 as an outpatient -Counseled cessation, continue the nicotine patch 2. YADIRA -Resolved, creatinine is now down to 1 DVT: Ambulation Charges/Coding Visit Charges Inpatient E&M: 34308 Subs Hosp L2
[2021-01-30] MEDS: Budesonide Respules 0.5 MG/2 ML AMPUL.NEB. INHALATION ×2 (07:18→19:19)
[2021-01-30] MEDS: Albuterol 2.5 MG/3 ML VIAL.NEB. INHALATION ×3 (07:18→19:19)
[2021-01-30] MEDS: DULoxetine Hcl 20 MG Capsule PO (08:06)
[2021-01-30] MEDS: Thiamine Hydrochloride 100 MG Tablet PO (08:06)
[2021-01-30] MEDS: Pantoprazole Sodium 40 MG Tablet PO ×2 (08:06→22:18)
[2021-01-30] MEDS: Folic Acid 1 MG Tablet PO (08:06)
[2021-01-30] MEDS: amLODIPine 5 MG Tablet PO (08:07)
[2021-01-30] MEDS: Enoxaparin 40 MG/0.4 ML Syringe SC (08:07)
[2021-01-30] MEDS: hydrOXYzine PAM 25 MG Capsule 50 MG PO ×2 (08:08→22:19)
[2021-01-30] MEDS: Gabapentin 300 MG Capsule PO ×2 (13:49→22:29)
--- NOTE | 2021-01-30 15:44 | ADDICTION ---
This expert medical writer met with PT to plan for d/c. PT will follow up with [facility] for an updated assessment and outpatient services. PT reported she does not need [facility] for transportation services and will telephone her friend Víctor when she is discharged on 01/31.
[2021-01-30] MEDS: Mirtazapine 15 MG Tablet PO (22:19)
[2021-01-30] MEDS: Loratadine 10 MG Tablet PO (22:29)
[2021-01-31 01:57] VITALS: BP 99/62; PULSE 86; RESP 18; TEMP 36.8; O2SAT 97
[2021-01-31] MEDS: Phenobarbital 32.4 MG Tablet 64.8 MG PO ×2 (02:01→06:09)
[2021-01-31 06:05] VITALS: BP 132/91; PULSE 88; RESP 18; TEMP 36.6; O2SAT 97
[2021-01-31] MEDS: Sucralfate 1 GM Tablet PO (06:09)
[2021-01-31] MEDS: Dicyclomine 10 MG Capsule PO (06:09)
[2021-01-31 07:02] VITALS: PULSE 88; RESP 18; O2SAT 94
[2021-01-31] MEDS: Budesonide Respules 0.5 MG/2 ML AMPUL.NEB. INHALATION (07:02)
[2021-01-31] MEDS: Albuterol 2.5 MG/3 ML VIAL.NEB. INHALATION (07:02)
--- NOTE | 2021-01-31 07:33 | PCM.DC ---
Discharge Instructions Diet Discharge Diet: No restrictions Activity Discharge Activity: Return to Normal Activity Dressing / Incision Call your doctor if your incision/area has: Continuous Slow Oozing Call your doctor if you observe: Fever of 101 or Higher, Shortness of breath, Dizziness, Swelling in the ankles, Chest pain and Increased palpitations (irregular heartbeat) Follow Up Care Test Results: Test results from this visit will be discussed in further detail at your follow-up appointment, if applicable. Discharge Plan Admission Admit Date/Time: 01/28/21 21:30 Attending Provider: Nathanael Garcia Primary Care Provider: Kellie Delarosa Discharge Orders/Prescriptions Prescriptions: Continued loratadine [Claritin] 10 mg tablet 10 mg PO DAILY PRN (Reason: Allergies) RF: 0 fluticasone furoate-vilanterol 1 EACH blister with device 1 puff inhalation DAILY RF: 0 mirtazapine 15 tablet 15 mg PO QHS RF: 0 albuterol sulfate 18 GM HFA aerosol inhaler 2 puff IH Q4H PRN (Reason: Sob &/Or Wheezing) RF: 0 hydroxyzine HCl 50 MG tablet 50 mg PO BID RF: 0 dicyclomine 10 MG capsule 10 mg PO ACHS RF: 0 pantoprazole 40 MG tablet 40 mg PO BID RF: 0 amlodipine 10 MG tablet 5 mg PO DAILY RF: 0 duloxetine 20 MG capsule,delayed release(DR/EC) 20 mg PO DAILY RF: 0 sucralfate 1 gram tablet 1 g PO ACHS RF: 0 Referrals / Follow Up: Kellie Delarosa DO [Primary Care Provider] - In 1 Week Disposition Disposition (needs filled in before D/C Order can be placed): Home, Self Care
[2021-01-31] MEDS: Folic Acid 1 MG Tablet PO (08:21)
[2021-01-31] MEDS: DULoxetine Hcl 20 MG Capsule PO (08:21)
[2021-01-31] MEDS: Thiamine Hydrochloride 100 MG Tablet PO (08:21)
[2021-01-31] MEDS: Pantoprazole Sodium 40 MG Tablet PO (08:23)
[2021-01-31] MEDS: amLODIPine 5 MG Tablet PO (08:23)
[2021-01-31] MEDS: hydrOXYzine PAM 25 MG Capsule 50 MG PO (08:23)
[2021-01-31 08:34] VITALS: BP 142/84; PULSE 98; RESP 20; TEMP 36.7; O2SAT 97
--- NOTE | 2021-01-31 08:55 | PCM.DC.SUM ---
Providers Date of Admission: 01/28/21 Primary Care Physician: Dr. Kellie Delarosa DO Reason For Visit: ALCOHOL ABUSE Diagnosis Discharge Diagnosis (1) Alcohol abuse: Status: Acute Code(s): F10.10 - Alcohol abuse, uncomplicated (2) YADIRA (acute kidney injury): Status: Acute Code(s): N17.9 - Acute kidney failure, unspecified Medications at Discharge Home Medications loratadine 10 mg tablet 10 mg PO DAILY PRN 04/04/18 fluticasone furoate-vilanterol 1 puff INHALATION DAILY 07/16/18 albuterol sulfate 2 puff IH Q4H PRN 11/16/18 mirtazapine 15 mg PO QHS 11/16/18 dicyclomine 10 mg PO ACHS 10/17/19 hydroxyzine HCl 50 mg PO BID 10/17/19 pantoprazole 40 mg PO BID 10/17/19 amlodipine 5 mg PO DAILY 07/28/20 duloxetine 20 mg PO DAILY 07/28/20 sucralfate 1 g PO ACHS 01/28/21 Hospital Course Operations None Procedures None Summary of Care Provided Minutes Spent on Discharge: 35 Hospital Course: Per HPI: ANISA PABLO, is a 60 F with a significant history of hypertension; tobacco abuse and alcohol abuse who presents to the emergency department with help from alcohol detoxification. She reports drinking 1/5 of vodka every day. She has been drinking for the past 30 years. She has been to rehabs. She reported she was at rehab many years ago. Last time she drank was about 3 hours prior to presentation. At the emergency department she developed withdrawal symptoms. She reported her withdrawal symptoms as tremors; headache; nausea; and vomiting. Further she reports depression and anxiety. She denies any suicidal or homicidal ideation. He reported that about 2 weeks ago he was treated for kidney infection. Reportedly she was given antibiotics. Her lisinopril was stopped at that time by her heel room supervisor, Dr. Carli Chung. Hospital Course: 1. Alcohol withdrawal/nicotine [id number] female presented from home requesting alcohol detox. She tolerated the protocol very well and this morning had a CIWA of 0. She will follow up with 180 on her own as an outpatient and she refused all discharge planning. I discussed the plan for discharge today and she expressed understanding of the risk benefits of going home and would like to go home today. Her YADIRA had resolved with some IV fluids. Physical Exam Const alert, oriented x3 and no apparent distress General Appearance: cooperative HEENT normocephalic and moist oral mucous membranes Eyes PERRL, EOMs intact bilaterally and conjunctivae normal Neck supple and no JVD Resp normal respiratory effort, no retractions, no use of accessory muscles and clear to auscultation bilaterally Auscultation: Negative for crackles, rales, rhonchi or wheezes Cardio regular rate, regular rhythm, S1 normal heart sound, S2 normal heart sound and no murmurs GI soft to palpation, non-tender and non-distended; Negative for hepatosplenomegaly Extremity no clubbing, cyanosis or edema Skin no rashes or lesions noted Neuro no focal motor deficits and no sensory deficits noted Psych affect normal Appearance: appropriate Medical Records Data Medical Nutrition Assessment Dietitian: Nutrition Therapy Diagnosis Start: 01/29/21 10:44 Freq: Status: Active Protocol: Document 01/29/21 10:59 (Rec: 01/29/21 10:59 [id number]) Nutrition Malnutrition Evidence of Malnutrition Exists Yes Malnutrition (severe): Social/Behavioral/ Environmental Evidenced By Suboptimal Energy Intake ( Severe),Weight Loss (Severe) Clinical Problem Chronic Disease or Condition Related Malnutrition Etiology severe malnutrition related to inadequate protein/calorie intake d/t alcohol abuse, shingles pain Signs/Symptoms as evidenced by pt reports of consuming < 50% of estimated nutritional needs x 6 months, no PO intake x 1 week; unintentional wt loss of 24.4# /18% x 6 months; BMI 19.3 Status Active Problem Recommendation Dietitian Recommendations/Changes Will change diet to regular given signs/symptoms of malnutrition; continue 120mL ensure enlive 4x/day. Weight / BMI Weight Weight: 112 lb 3.445 oz Body Mass Index (BMI) 19.2 ABG / Lab / Microbiology Data Result Diagrams: 01/28/21 20:30 01/29/21 05:25 D/C Instructions Discharge Diet: No restrictions Call your doctor if your incision/area has: Continuous Slow Oozing Call your doctor if you observe: Fever of 101 or Higher, Shortness of breath, Dizziness, Swelling in the ankles, Chest pain and Increased palpitations (irregular heartbeat) Meaningful Use Info Meaningful Use Diagnoses (Choose all that apply): None applicable Discharge Plan Admission Admit Date/Time: 01/28/21 21:30 Attending Provider: Nathanael Garcia Primary Care Provider: Kellie Delarosa Discharge Orders/Prescriptions Prescriptions: Continued loratadine [Claritin] 10 mg tablet 10 mg PO DAILY PRN (Reason: Allergies) RF: 0 fluticasone furoate-vilanterol 1 EACH blister with device 1 puff inhalation DAILY RF: 0 mirtazapine 15 tablet 15 mg PO QHS RF: 0 albuterol sulfate 18 GM HFA aerosol inhaler 2 puff IH Q4H PRN (Reason: Sob &/Or Wheezing) RF: 0 hydroxyzine HCl 50 MG tablet 50 mg PO BID RF: 0 dicyclomine 10 MG capsule 10 mg PO ACHS RF: 0 pantoprazole 40 MG tablet 40 mg PO BID RF: 0 amlodipine 10 MG tablet 5 mg PO DAILY RF: 0 duloxetine 20 MG capsule,delayed release(DR/EC) 20 mg PO DAILY RF: 0 sucralfate 1 gram tablet 1 g PO ACHS RF: 0 Referrals / Follow Up: Kellie Delarosa DO [Primary Care Provider] - In 1 Week Disposition Disposition (needs filled in before D/C Order can be placed): Home, Self Care Charges/Coding Visit Charges Inpatient E&M: 90345 Disch Hosp
== END 2021-01-31 10:45 | disposition home or self-care (01) | DRG 775 ==
LOC: ED 21:28 → MS3 21:36
PROVIDERS: Admitting Provider Hospitalist; Emergency Provider Emergency Medicine; PCP Family Medicine; Visit Provider Family Medicine
DX: F10.239 Alcohol dependence with withdrawal, unspecified (principal); F31.9 Bipolar disorder, unspecified; F41.9 Anxiety disorder, unspecified; K21.9 Gastro-esophageal reflux disease without esophagitis; J44.9 Chronic obstructive pulmonary disease, unspecified; F17.210 Nicotine dependence, cigarettes, uncomplicated; Y90.8 Blood alcohol level of 240 mg/100 ml or more; I10 Essential (primary) hypertension; Z79.899 Other long term (current) drug therapy; N17.9 Acute kidney failure, unspecified; E43 Unspecified severe protein-calorie malnutrition; Z68.1 Body mass index [BMI] 19.9 or less, adult
CPT/HCPCS: 36415; 80048; 80053; 80307; 82077; 83690; 84484; 85025; 93005; 94640; 97110; 97162; 97166; 97535; 97802; 99285; 99406; J7030; A4216; J2405

== ENCOUNTER 2021-02-13 21:11 | Inpatient (IN) | payer MEDICAID, SELFPAY ==
[2021-02-13 21:11] VITALS: BP 121/95; PULSE 134; RESP 20; TEMP 36.1; O2SAT 95; BMI 21.4
--- NOTE | 2021-02-13 21:23 | EKG12_ITS ---
Test Reason : ARM PAIN Blood Pressure : / mmHG Vent. Rate : 100 BPM Atrial Rate : 100 BPM P-R Int : 190 ms QRS Dur : 066 ms QT Int : 358 ms P-R-T Axes : 082 091 085 degrees QTc Int : 461 ms Normal sinus rhythm Septal infarct , age undetermined Abnormal ECG Confirmed by PATRICE NARVAEZ, IVETT ([id number]), slot editor MARLYN NAVARRO ([id number]) on 02/17/2021 9:39:14 AM Referred By: MADISON Confirmed By:IVETT IBRAHIM MD
[2021-02-13 21:40] LABS: Absolute Lymphocyte Count 2.18 X10^3/uL (0.83-4.51); Absolute Neutrophil Count 3.4 X10^3/uL (2.0-7.7); Basophil# 0.03 X10^3/uL; Basophil% 0.5 % (0-1); Hematocrit 32.8 % (37-47); Hemoglobin 10.7 g/dL (12.0-15.0); Lymphocyte # 2.18 X10^3/ul (0.83-4.51); Lymphocyte % 36.1 % (19-41); Mean Corp Hgb Conc 32.6 g/dL (32-36); Mean Corpuscular Hgb 30.3 pg (27.0-32.0); Mean Corpuscular Volume 92.9 fL (81-99); Monocyte# 0.42 X10^3/uL; NRBC Flagged by Analyzer 0 % (0-5); Neutrophil # 3.37 X10^3/uL (2.7-7.7); Neutrophil % 55.7 % (47-70); Platelet Count 418 K/mm3 (150-450); RBC Distribution Width CV 15.6 % (11.6-14.6); RBC Distribution Width SD 52.8 fl (35.1-43.9); Red Blood Count 3.53 M/mm3 (4.2-5.4)
[2021-02-13 21:58] LABS: ALB/GLOB Ratio 0.9 RATIO (0.9-2.4); AST(SGOT) 77 U/L (15-37); Alanine Aminotransfer ALT/SGPT 46 U/L (13-56); Albumin, Serum 3.7 g/dL (3.2-5.0); Alkaline Phosphatase 88 U/L (45-117); Anion Gap 23 (5-15); BUN 13 mg/dL (7-18); BUN/Creat Ratio 11.2 RATIO (10-20); Calcium,Total 8.8 mg/dL (8.5-10.1); Chloride 93 mmol/L (98-107); Creatinine, Serum 1.16 mg/dL (0.55-1.02); EST Glomerular Filtration Rate 51 mL/min (>60); Est Glom Filt Rate - Afr Amer 61 mL/min (>60); Estimated Creatinine Clearance 45.09 ml/min; Glucose 62 mg/dL (74-106); Lipase 165 U/L (73-393); Potassium 3.7 mmol/L (3.5-5.1); Protein, Total 7.7 g/dL (6.4-8.2); Sodium Level 135 mmol/L (136-145)
[2021-02-13 22:49] VITALS: BP 117/55; PULSE 91; RESP 16; TEMP 36.7; O2SAT 96
--- NOTE | 2021-02-13 22:53 | EX.ED.SAOD ---
HPI History of Present Illness Chief Complaint: ETOH Intox Narrative Narrative: 60-year-old female with history of EtOH abuse presenting with EtOH intoxication and request to be admitted for detox. She states he last detox about a week ago. She states that this was at [facility]. She admits to drinking 1/5 of vodka daily. She drank prior to arrival. Patient is denying any pain. She is eating crackers while I am examining her. She seems alert and awake. She states that she has no history of withdrawal seizures but she does have bad symptoms. [facility] Medical History Abnormal mammogram Alcohol abuse Anxiety Bipolar 1 disorder COPD (chronic obstructive pulmonary disease) GERD (gastroesophageal reflux disease) Hepatotoxicity, secondary to ETOH Insomnia Smoker Home Medications loratadine 10 mg tablet 10 mg PO DAILY PRN 04/04/18 [History Last Taken 12/31/20 20:30] fluticasone furoate-vilanterol 1 puff INHALATION DAILY 07/16/18 [History Last Taken 01/27/21] albuterol sulfate 2 puff IH Q4H PRN 11/16/18 [History Last Taken 01/27/21] mirtazapine 15 mg PO QHS 11/16/18 [History Last Taken 01/27/21] dicyclomine 10 mg PO ACHS 10/17/19 [History Last Taken 01/27/21] hydroxyzine HCl 50 mg PO BID 10/17/19 [History Last Taken 01/27/21] pantoprazole 40 mg PO BID 10/17/19 [History Last Taken 01/26/21] amlodipine 5 mg PO DAILY 07/28/20 [History Last Taken 01/27/21] duloxetine 20 mg PO DAILY 07/28/20 [History Last Taken 01/27/21] sucralfate 1 g PO ACHS 01/28/21 [History Last Taken 01/27/21] Allergy/AdvReac Type Severity Reaction Status Date / Time Penicillins Allergy SOB, cold Verified 02/13/21 21:13 sweats Family History Mother Hypertension Thyroid disorder CVA (cerebral vascular accident) Sister Heart disease Surgical History History of History of hysterectomy Social History (Updated 02/14/21 @ 00:[address] Cecille Guillory MD) household members: friend(s) Smoking Status: Current every day smoker tobacco type: cigarettes alcohol intake: current substance use type: does not use ROS ROS ED Constitutional Constitutional ED: Denies chills, fever(s) or weight loss Eyes Eyes: Denies blurry vision or change in vision ENT ENT ED: Denies rhinorrhea or sore throat Cardiovascular Cardiovascular: Denies chest pain or palpitations Respiratory/Chest Respiratory/Chest: Denies cough, dyspnea or sputum Gastrointestinal Gastrointestinal: Denies abdominal pain, nausea or vomiting Genitourinary Genitourinary ED: Denies dysuria or urinary frequency Musculoskeletal Musculoskeletal: Denies arthralgias or myalgias Integumentary Denies abscess or rash Neurologic Neurologic: Denies headache(s) or paresthesias Psychiatric Psychiatric: Denies anxiety or depression EXAM Physical Exam Const Vital Signs: 02/13/21 21:11 02/13/21 22:49 02/13/21 23:04 Temperature 97 F L 98.1 F 95.9 F L Temperature Source Temporal Temporal Temporal Pulse Rate 134 H 91 91 Respiratory Rate 20 H 16 16 Blood Pressure 121/95 H 117/55 L 117/55 L Blood Pressure Mean 103 75 75 Pulse Ox 95 96 96 Oxygen Delivery Method Room Air Room Air Oxygen Flow Rate (L/min) 96 Positive unkempt General Appearance ED: unkempt and NAD; Negative for pallor HEENT Reports moist mucous membranes atraumatic Eyes PERRL and EOMs intact bilaterally General Eye ED: Negative for pale conjunctiva or scleral icterus Resp normal respiratory effort and clear to auscultation bilaterally Cardio regular rate and regular rhythm GI soft to palpation, non-tender and non-distended Extremity General Extremety ED: Negative for edema or tenderness General Extremity: Negative for edema Neuro oriented x3 and CN's II-XII intact bilaterally Sensorium / Orientation: alert Psych mental status grossly normal Appearance: unkempt Skin General Skin Exam: Negative for jaundice or pallor Lesions: no lesions Rashes: no rashes MDM MDM MDM Narrative Medical decision making narrative: Patient states he wants to be admitted for detox from alcohol. Last drink prior to arrival. Her EtOH is 394. Patient CBC shows a white blood cell count of 6.0, hemoglobin 10.7, hematocrit 33.8, platelets 418. No left shift. Renal function and electrolytes are normal with exception of a CO2 of 19. LFTs are normal with exception of a mildly elevated AST at 77. Lipase is negative. Patient initially tachycardic at 134 bpm with normal blood pressure. Without treatment she is normalized her blood pressure and heart rate is now 91, respiratory 16, 96% on room air. She wishes to be admitted for detox. I discussed the patient with the hospitalist. Patient stable on transfer. Impression: 1. EtOH abuse 2. Presentation EtOH detox. Lab Data Attestation: I reviewed the patient's lab results. Labs: Laboratory Results - last 24 hr 02/13/21 02/13/21 02/13/21 21:30 21:30 21:30 WBC 6.0 RBC 3.53 L Hgb 10.7 L Hct 32.8 L MCV 92.9 MCH 30.3 MCHC 32.6 RDW Std Deviation 52.8 H RDW Coeff of Rebeca 15.6 H Plt Count 418 MPV 8.0 Immature Gran % (Auto) 0.700 Neut % (Auto) 55.7 Lymph % (Auto) 36.1 [place] % (Auto) 7.0 Eos % (Auto) 0.0 Baso % (Auto) 0.5 Absolute Neuts (auto) 3.4 Absolute Lymphs (auto) 2.18 Nucleated RBC % 0 Sodium 135 L Potassium 3.7 Chloride 93 L Carbon Dioxide 19.0 L Anion Gap 23 H BUN 13 Creatinine 1.16 H Estim Creat Clear Calc 45.09 Est GFR (MDRD) Af Amer 61 Est GFR (MDRD) Non-Af 51 L BUN/Creatinine Ratio 11.2 Glucose 62 L Calcium 8.8 Total Bilirubin 0.30 AST 77 H ALT 46 Alkaline Phosphatase 88 Total Protein 7.7 Albumin 3.7 Globulin 4.0 Albumin/Globulin Ratio 0.9 Lipase 165 Ethyl Alcohol 394.0 H* Discharge Plan Triage Chief Complaint: ETOH Intox ED Provider: Guillaume Johnson Dx/Rx/DC Orders Primary Care Provider: Kellie Delarosa Disposition Discharge Date/Time: 02/13/21 23:42
[2021-02-13 23:04] VITALS: BP 117/55; PULSE 91; RESP 16; TEMP 35.5; O2SAT 96
--- NOTE | 2021-02-13 23:06 | PCM.HP.STD ---
HPI - General General Date of Admission: 02/13/21 Date of Service: 02/13/21 Chief Complaint: Request for medical stabilisation HPI Narrative ANISA PABLO, is a 60 F who presents requesting for medical stabilization from alcohol abuse. Patient was recently admitted for the same reason. Discharged on 01/31/21. Patient stated that after discharge, she went back to drinking. She drinks about half a pint of vodka every day. Her admitting alcohol level was 394. PFSH Medical History Abnormal mammogram Alcohol abuse Anxiety Bipolar 1 disorder COPD (chronic obstructive pulmonary disease) GERD (gastroesophageal reflux disease) Hepatotoxicity, secondary to ETOH Insomnia Smoker Home Medications loratadine 10 mg tablet 10 mg PO DAILY PRN 04/04/18 [History Last Taken 12/31/20 20:30] fluticasone furoate-vilanterol 1 puff INHALATION DAILY 07/16/18 [History Last Taken 01/27/21] albuterol sulfate 2 puff IH Q4H PRN 11/16/18 [History Last Taken 01/27/21] mirtazapine 15 mg PO QHS 11/16/18 [History Last Taken 01/27/21] dicyclomine 10 mg PO ACHS 10/17/19 [History Last Taken 01/27/21] hydroxyzine HCl 50 mg PO BID 10/17/19 [History Last Taken 01/27/21] pantoprazole 40 mg PO BID 10/17/19 [History Last Taken 01/26/21] amlodipine 5 mg PO DAILY 07/28/20 [History Last Taken 01/27/21] duloxetine 20 mg PO DAILY 07/28/20 [History Last Taken 01/27/21] sucralfate 1 g PO ACHS 01/28/21 [History Last Taken 01/27/21] Allergy/AdvReac Type Severity Reaction Status Date / Time Penicillins Allergy SOB, cold Verified 02/13/21 21:13 sweats Family History Mother Hypertension Thyroid disorder CVA (cerebral vascular accident) Sister Heart disease Surgical History History of History of hysterectomy Social History (Updated 02/14/21 @ 00:[address] Cecille Guillory MD) household members: friend(s) Smoking Status: Current every day smoker tobacco type: cigarettes alcohol intake: current substance use type: does not use ROS ROS Narrative Constitutional: Denies: Anorexia, Chills, Fever, Night Sweats, Weight Change Eyes: Denies: Blurred vision, Cataracts, Conjunctivae Inflammation, Pain, Redness, Vision Change HEENT: Denies: Difficulty Hearing, Difficulty Swallowing, Head Aches, Hearing Changes, Sinus Congestion, Sinus Drainage Cardiovascular: Denies: Chest Pain, Orthopnea, Palpitations Respiratory: Denies: Cough, Shortness of breath at rest, Sputum production Gastrointestinal: Denies: Abdominal Pain, Nausea, Vomiting Genitourinary: Denies: Dysuria Musculoskeletal: Denies: Joint Pain, Joint stiffness, Joint swelling, Joint Tenderness Skin: Denies: Rash, Wounds Neurological: Denies: Numbness, Tingling, Focal weakness Vital Signs Vital Signs Vital Signs: 02/13/21 21:11 02/13/21 22:49 Temperature 97 F L 98.1 F Temperature Source Temporal Temporal Pulse Rate 134 H 91 Respiratory Rate 20 H 16 Blood Pressure 121/95 H 117/55 L Blood Pressure Mean 103 75 Pulse Ox 95 96 Oxygen Delivery Method Room Air Room Air Weight Weight: 56.699 kg Body Mass Index (BMI) 21.4 Physical Exam Narrative Physical exam: General: Alert, Oriented x3, Cooperative, No apparent distress, Well developed HEENT: Atraumatic Oral: Moist Mucosa Neck: Supple Lungs: Clear to auscultation Cardiovascular: HS I+II, regular, no murmurs Abdomen: Bowel Sounds Present, Soft, Non Tender Extremities: No edema Skin: No rashes, No breakdown Neurological: Grossly intact Psych/Mental Status: Appropriate Results Lab / Micro Data Result Diagrams: 02/13/21 21:30 02/13/21 21:30 Labs: Laboratory Results - last 24 hr 02/13/21 21:30: WBC 6.0, RBC 3.53 L, Hgb 10.7 L, Hct 32.8 L, MCV 92.9, MCH 30.3, MCHC 32.6, RDW Std Deviation 52.8 H, RDW Coeff of Rebeca 15.6 H, Plt Count 418, MPV 8.0, Immature Gran % (Auto) 0.700, Neut % (Auto) 55.7, Lymph % (Auto) 36.1, [place] % (Auto) 7.0, Eos % (Auto) 0.0, Baso % (Auto) 0.5, Absolute Neuts (auto) 3.4, Absolute Lymphs (auto) 2.18, Nucleated RBC % 0 02/13/21 21:30: Sodium 135 L, Potassium 3.7, Chloride 93 L, Carbon Dioxide 19.0 L, Anion Gap 23 H, BUN 13, Creatinine 1.16 H, Estim Creat Clear Calc 45.09, Est GFR (MDRD) Af Amer 61, Est GFR (MDRD) Non-Af 51 L, BUN/Creatinine Ratio 11.2, Glucose 62 L, Calcium 8.8, Total Bilirubin 0.30, AST 77 H, ALT 46, Alkaline Phosphatase 88, Total Protein 7.7, Albumin 3.7, Globulin 4.0, Albumin/Globulin Ratio 0.9, Lipase 165 02/13/21 21:30: Ethyl Alcohol 394.0 H* Assessment & Plan Assessment/Plan (1) Alcohol abuse: (2) Malnutrition: QUALIFIERS: Malnutrition type: protein-calorie malnutrition Protein-calorie malnutrition severity: severe Qualified Code(s): E43 - Unspecified severe protein-calorie malnutrition PLAN: 1. Request for medical stabilization from acute alcohol withdrawal Patient is admitted alcohol level is 394 Admit to MedSur, monitor on phenobarb taper, folic acid, multivitamin, thiamine 2. Nicotine dependence, on replacement 3. Malnutrition, severe, typecasting machine operator consulted 4. Hypertension, continue Charges/Coding Visit Charges Inpatient E&M: 83532 Init Hosp L3
[2021-02-13 23:47] VITALS: BMI 19.3
[2021-02-13 23:57] VITALS: BP 119/55; PULSE 113; RESP 18; TEMP 36.8; O2SAT 97
[2021-02-14] VITALS (9 sets, daily range): BP systolic 92–137; BP diastolic 58–100; PULSE 88–118; RESP 12–19; TEMP 36.6–37.7; O2SAT 92–94
[2021-02-14] MEDS: Phenobarbital 32.4 MG Tablet 64.8 MG PO ×6 (00:05→20:57)
[2021-02-14] MEDS: Dicyclomine 10 MG Capsule 20 MG PO (00:30)
[2021-02-14] MEDS: traZODone 100 MG Tablet PO (00:30)
[2021-02-14] MEDS: Gabapentin 300 MG Capsule PO ×3 (00:30→21:04)
[2021-02-14] MEDS: Loperamide 2 MG Capsule PO (00:30)
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
[2021-02-14] MEDS: Sucralfate 1 GM Tablet PO ×4 (04:27→20:57)
[2021-02-14] MEDS: Dicyclomine 10 MG Capsule PO ×4 (04:27→20:57)
[2021-02-14 06:29] LABS: Absolute Lymphocyte Count 2.86 X10^3/uL (0.83-4.51); Absolute Neutrophil Count 2.1 X10^3/uL (2.0-7.7); Basophil# 0.04 X10^3/uL; Basophil% 0.7 % (0-1); Eosinophil# 0.03 X10^3/uL; Eosinophils% 0.5 % (0-5); Hematocrit 30.3 % (37-47); Hemoglobin 10.1 g/dL (12.0-15.0); Lymphocyte # 2.86 X10^3/ul (0.83-4.51); Lymphocyte % 51.3 % (19-41); Mean Corp Hgb Conc 33.3 g/dL (32-36); Mean Corpuscular Hgb 30.6 pg (27.0-32.0); Mean Corpuscular Volume 91.8 fL (81-99); Mean Platelet Vol. 8.4 fl (6.2-12.0); Monocyte# 0.49 X10^3/uL; Monocyte% 8.8 % (0-10); NRBC Flagged by Analyzer 0 % (0-5); Neutrophil # 2.13 X10^3/uL (2.7-7.7); Neutrophil % 38.3 % (47-70); Platelet Count 386 K/mm3 (150-450); RBC Distribution Width CV 15.5 % (11.6-14.6); RBC Distribution Width SD 52.3 fl (35.1-43.9); White Blood Count 5.6 K/mm3 (4.4-11.0)
[2021-02-14 06:57] LABS: ALB/GLOB Ratio 0.9 RATIO (0.9-2.4); AST(SGOT) 59 U/L (15-37); Alanine Aminotransfer ALT/SGPT 37 U/L (13-56); Albumin, Serum 3.2 g/dL (3.2-5.0); Alkaline Phosphatase 76 U/L (45-117); Anion Gap 16 (5-15); BUN 14 mg/dL (7-18); BUN/Creat Ratio 14.7 RATIO (10-20); Calcium,Total 8.3 mg/dL (8.5-10.1); Chloride 95 mmol/L (98-107); Creatinine, Serum 0.95 mg/dL (0.55-1.02); EST Glomerular Filtration Rate 64 mL/min (>60); Est Glom Filt Rate - Afr Amer 77 mL/min (>60); Estimated Creatinine Clearance 51.34 ml/min; Globulin 3.4 g/dL (2.2-4.2); Glucose 61 mg/dL (74-106); Potassium 3.7 mmol/L (3.5-5.1); Protein, Total 6.6 g/dL (6.4-8.2); Sodium Level 133 mmol/L (136-145)
[2021-02-14] MEDS: Albuterol 2.5 MG/3 ML VIAL.NEB. INHALATION ×3 (07:01→19:00)
[2021-02-14] MEDS: Budesonide Respules 0.5 MG/2 ML AMPUL.NEB. INHALATION ×2 (07:01→19:00)
--- NOTE | 2021-02-14 07:14 | NURSING ---
blood sugar on this AM labs was 61, pt given crackers and peanut butter and cranberry juice. pts breakfast ordered. denies further needs
[2021-02-14] MEDS: Ondansetron 8 MG Tablet PO (08:27)
[2021-02-14] MEDS: amLODIPine 5 MG Tablet PO (08:28)
[2021-02-14] MEDS: Folic Acid 1 MG Tablet PO (08:29)
[2021-02-14] MEDS: Thiamine Hydrochloride 100 MG Tablet PO (08:29)
[2021-02-14] MEDS: hydrOXYzine PAM 25 MG Capsule 50 MG PO ×3 (08:29→20:57)
[2021-02-14 09:17] LABS: Mucous, Urine 0 SEEN /hpf (<or=2+); White Blood Cells 0 SEEN /hpf (0-5)
[2021-02-14 09:25] LABS: Color, Urine Yellow (Yellow); Glucose, Dipstick Normal (Normal); Ketone-Dipstick 50 mg/dl (Negative); Leukocyte Esterase-Dipstick Negative /ul (Negative); Nitrite-Dipstick Negative (Negative); Occult Blood-Urine 10 /ul (Negative); Protein-Dipstick 30 mg/dl (Negative); Specific Gravity, Urine 1.015 (1.002-1.030); Urine Bilirubin Dipstick Negative (Negative); Urine Clarity Sl. Cloudy (Clear); Urine Urobilinogen Normal (Normal)
[2021-02-14 09:37] LABS: Amphetamine Urine VISTA NEGATIVE (<1000 ng/mL); Barbiturate Urine VISTA POSITIVE (< 200 ng/mL); Benzodiazepine Urine VISTA NEGATIVE (< 200 ng/mL); Cocaine Urine VISTA NEGATIVE (< 300 ng/mL); Ecstacy Urine VISTA POSITIVE (< 500 ng/mL); Methadone Urine VISTA NEGATIVE (< 300 ng/mL); PCP Urine VISTA NEGATIVE (< 25 ng/mL); THC Urine VISTA NEGATIVE (< 50 ng/mL); Vista UDS pH Range 5
[2021-02-14 09:39] LABS: Bacteria RARE /hpf (None Seen); Red Blood Cells-Urine 0-5 SEEN /hpf (0-5); Squamous Epithelial Cells - UA 5-10 SEEN /hpf (5-10); Yeast-Urine 1+ /hpf (None Seen)
[2021-02-14] MEDS: DULoxetine Hcl 20 MG Capsule PO (10:38)
[2021-02-14] MEDS: Ibuprofen 600 MG Tablet PO ×2 (10:45→21:04)
[2021-02-14] MEDS: Pantoprazole Sodium 40 MG Tablet PO ×2 (11:06→20:57)
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
[2021-02-14] MEDS: Acetaminophen 500 MG Tablet PO (15:08)
[2021-02-14] MEDS: Metoprolol Tartrate 25 MG Tablet 12.5 MG PO (15:09)
[2021-02-14] MEDS: Mirtazapine 15 MG Tablet PO (20:57)
[2021-02-15] VITALS (10 sets, daily range): BP systolic 96–155; BP diastolic 62–96; PULSE 75–107; RESP 16–20; TEMP 36.6–36.8; O2SAT 90–99
[2021-02-15] MEDS: Phenobarbital 32.4 MG Tablet 64.8 MG PO ×6 (00:40→20:34)
[2021-02-15 06:03] LABS: Absolute Lymphocyte Count 1.57 X10^3/uL (0.83-4.51); Absolute Neutrophil Count 3.5 X10^3/uL (2.0-7.7); Basophil# 0.02 X10^3/uL; Basophil% 0.3 % (0-1); Eosinophil# 0.17 X10^3/uL; Eosinophils% 2.9 % (0-5); Hemoglobin 9.4 g/dL (12.0-15.0); Lymphocyte # 1.57 X10^3/ul (0.83-4.51); Lymphocyte % 26.8 % (19-41); Mean Corp Hgb Conc 32.4 g/dL (32-36); Mean Corpuscular Hgb 30.1 pg (27.0-32.0); Mean Corpuscular Volume 92.9 fL (81-99); Mean Platelet Vol. 8.3 fl (6.2-12.0); Monocyte# 0.56 X10^3/uL; Monocyte% 9.6 % (0-10); NRBC Flagged by Analyzer 0 % (0-5); Neutrophil # 3.51 X10^3/uL (2.7-7.7); Neutrophil % 60.1 % (47-70); Platelet Count 295 K/mm3 (150-450); RBC Distribution Width CV 15.7 % (11.6-14.6); RBC Distribution Width SD 53.3 fl (35.1-43.9); Red Blood Count 3.12 M/mm3 (4.2-5.4); White Blood Count 5.9 K/mm3 (4.4-11.0)
[2021-02-15] MEDS: Sucralfate 1 GM Tablet PO ×4 (06:24→22:22)
[2021-02-15] MEDS: Dicyclomine 10 MG Capsule PO ×4 (06:25→22:22)
[2021-02-15 06:27] LABS: Anion Gap 6 (5-15); BUN 17 mg/dL (7-18); Calcium,Total 8.6 mg/dL (8.5-10.1); Chloride 95 mmol/L (98-107); Creatinine, Serum 0.94 mg/dL (0.55-1.02); EST Glomerular Filtration Rate 64 mL/min (>60); Est Glom Filt Rate - Afr Amer 78 mL/min (>60); Estimated Creatinine Clearance 51.88 ml/min; Glucose 82 mg/dL (74-106); Potassium 3.5 mmol/L (3.5-5.1); Sodium Level 132 mmol/L (136-145)
[2021-02-15] MEDS: Budesonide Respules 0.5 MG/2 ML AMPUL.NEB. INHALATION ×2 (08:03→18:55)
[2021-02-15] MEDS: Albuterol 2.5 MG/3 ML VIAL.NEB. INHALATION ×3 (08:04→18:54)
[2021-02-15] MEDS: Folic Acid 1 MG Tablet PO (08:12)
[2021-02-15] MEDS: Thiamine Hydrochloride 100 MG Tablet PO (08:12)
[2021-02-15] MEDS: hydrOXYzine PAM 25 MG Capsule 50 MG PO ×3 (08:23→22:22)
[2021-02-15] MEDS: Gabapentin 300 MG Capsule PO ×2 (08:23→19:46)
[2021-02-15] MEDS: amLODIPine 5 MG Tablet PO (10:43)
[2021-02-15] MEDS: Metoprolol Tartrate 25 MG Tablet 12.5 MG PO (10:43)
[2021-02-15] MEDS: Pantoprazole Sodium 40 MG Tablet PO ×2 (10:43→22:22)
[2021-02-15] MEDS: DULoxetine Hcl 20 MG Capsule PO (10:43)
--- NOTE | 2021-02-15 11:04 | CASEMGMT ---
SOCIAL WORK Raisa with [facility] here. Per Raisa, plan to discharge to nursing home. Patient will obtain taxi for transportation. Patient has appointment with Inga at [facility] scheduled for 11am tomorrow. [facility] requesting discharge at 9am as patient will need to go to nursing home prior to appointment at 11am. entrepreneur updated. Mahamed Johnson, TOOL ENGINEER, CIRCUIT BOARD INSPECTOR
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
--- NOTE | 2021-02-15 12:00 | CASEMGMT ---
SOCIAL WORK Raisa, Addiction Therapist requesting this worker assist patient in calling Alix with [facility] at 2pm. This worker to assist. Mahamed Johnson, SUPERVISOR [employer], MOLD DESIGNER
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
--- NOTE | 2021-02-15 14:19 | CASEMGMT ---
SOCIAL WORK Facilitated phone call to Alix with [facility] for patient to discuss getting into [facility]. Alix informed patient no bed available. Patient left message for Raisa, Addiction Therapist. This worker spoke with Raisa who reports will be making some calls to assist patient with discharge needs. Will update this worker on plan. Mahamed Johnson, STRATEGIC MARKETING LEADER, LITIGATION SERVICES MANAGER
--- NOTE | 2021-02-15 15:33 | CASEMGMT ---
SOCIAL WORK Received call from Raisa Addiction Therapist who reports will be in again today to meet with patient to discuss discharge plan. Patient updated. Mahamed Johnson, CAGE FIGHTER, WEB CONTENT DEVELOPER
[2021-02-15] MEDS: Loperamide 2 MG Capsule PO (16:13)
[2021-02-15] MEDS: Ibuprofen 600 MG Tablet PO (19:45)
[2021-02-15] MEDS: Mirtazapine 15 MG Tablet PO (22:22)
[2021-02-15] MEDS: traZODone 100 MG Tablet PO (22:31)
[2021-02-16] MEDS: Phenobarbital 32.4 MG Tablet 64.8 MG PO ×3 (00:58→07:57)
[2021-02-16 04:40] VITALS: BP 110/79; PULSE 86; RESP 18; TEMP 36.6; O2SAT 92
[2021-02-16 06:23] LABS: Absolute Lymphocyte Count 1.83 X10^3/uL (0.83-4.51); Basophil# 0.03 X10^3/uL; Basophil% 0.5 % (0-1); Eosinophil# 0.33 X10^3/uL; Eosinophils% 5.7 % (0-5); Hematocrit 27.4 % (37-47); Hemoglobin 8.9 g/dL (12.0-15.0); Lymphocyte # 1.83 X10^3/ul (0.83-4.51); Lymphocyte % 31.7 % (19-41); Mean Corp Hgb Conc 32.5 g/dL (32-36); Mean Corpuscular Hgb 30.7 pg (27.0-32.0); Mean Corpuscular Volume 94.5 fL (81-99); Mean Platelet Vol. 8.8 fl (6.2-12.0); Monocyte# 0.61 X10^3/uL; Monocyte% 10.6 % (0-10); NRBC Flagged by Analyzer 0 % (0-5); Neutrophil # 2.95 X10^3/uL (2.7-7.7); Platelet Count 246 K/mm3 (150-450); RBC Distribution Width CV 15.7 % (11.6-14.6); RBC Distribution Width SD 54.1 fl (35.1-43.9); White Blood Count 5.8 K/mm3 (4.4-11.0)
[2021-02-16 06:50] LABS: Anion Gap 2 (5-15); BUN 13 mg/dL (7-18); BUN/Creat Ratio 19.9 RATIO (10-20); Calcium,Total 8.5 mg/dL (8.5-10.1); Chloride 95 mmol/L (98-107); Creatinine, Serum 0.65 mg/dL (0.55-1.02); EST Glomerular Filtration Rate 98 mL/min (>60); Est Glom Filt Rate - Afr Amer 119 mL/min (>60); Estimated Creatinine Clearance 75.03 ml/min; Glucose 88 mg/dL (74-106); Potassium 4.6 mmol/L (3.5-5.1); Sodium Level 131 mmol/L (136-145)
[2021-02-16] MEDS: Dicyclomine 10 MG Capsule PO (06:50)
[2021-02-16] MEDS: Sucralfate 1 GM Tablet PO (06:50)
[2021-02-16 07:10] VITALS: PULSE 110; RESP 20; O2SAT 97
[2021-02-16] MEDS: Albuterol 2.5 MG/3 ML VIAL.NEB. INHALATION (07:10)
--- NOTE | 2021-02-16 07:10 | PCM.DC ---
Discharge Instructions Diet Discharge Diet: No restrictions Dressing / Incision Call your doctor if you observe: Fever of 101 or Higher, Shortness of breath, Dizziness, Swelling in the ankles, Chest pain and Increased palpitations (irregular heartbeat) Follow Up Care Test Results: Test results from this visit will be discussed in further detail at your follow-up appointment, if applicable. Discharge Plan Admission Admit Date/Time: 02/13/21 23:05 Attending Provider: Nathanael Garcia Primary Care Provider: Kellie Delarosa Instructions Additional Instructions / Restrictions: Obtain a follow-up CBC by your PCP to evaluate your anemia. Discharge Orders/Prescriptions Prescriptions: Continued loratadine [Claritin] 10 mg tablet 10 mg PO DAILY PRN (Reason: Allergies) RF: 0 fluticasone furoate-vilanterol 1 EACH blister with device 1 puff inhalation DAILY RF: 0 mirtazapine 15 tablet 15 mg PO QHS RF: 0 albuterol sulfate 18 GM HFA aerosol inhaler 2 puff IH Q4H PRN (Reason: Sob &/Or Wheezing) RF: 0 hydroxyzine HCl 50 MG tablet 50 mg PO BID RF: 0 dicyclomine 10 MG capsule 10 mg PO ACHS RF: 0 pantoprazole 40 MG tablet 40 mg PO BID RF: 0 amlodipine 10 MG tablet 5 mg PO DAILY RF: 0 duloxetine 20 MG capsule,delayed release(DR/EC) 20 mg PO DAILY RF: 0 sucralfate 1 gram tablet 1 g PO ACHS RF: 0 oxycodone 5 mg tablet 2.5 mg PO BID PRN PRN (Reason: Back Pain) RF: 0 Referrals / Follow Up: Kellie Delarosa DO [Primary Care Provider] - Within 1 Week Disposition Disposition (needs filled in before D/C Order can be placed): Home, Self Care
[2021-02-16] MEDS: Budesonide Respules 0.5 MG/2 ML AMPUL.NEB. INHALATION (07:14)
[2021-02-16 07:56] VITALS: BP 149/90; PULSE 96; RESP 18; TEMP 36.7; O2SAT 97
[2021-02-16] MEDS: hydrOXYzine PAM 25 MG Capsule 50 MG PO (07:58)
--- NOTE | 2021-02-16 08:46 | PCM.DC.SUM ---
Providers Date of Admission: 02/13/21 Primary Care Physician: Dr. Kellie Delarosa DO Reason For Visit: REQUEST FOR MEDICAL STABILIZATION Diagnosis Discharge Diagnosis (1) Alcohol abuse: Status: Acute Code(s): F10.10 - Alcohol abuse, uncomplicated (2) Malnutrition: Status: Acute Code(s): E46 - Unspecified protein-calorie malnutrition Qualifiers: Malnutrition type: protein-calorie malnutrition Protein-calorie malnutrition severity: severe Qualified Code(s): E43 - Unspecified severe protein-calorie malnutrition (3) Alcohol dependence: Status: Chronic Code(s): F10.20 - Alcohol dependence, uncomplicated Medications at Discharge Home Medications loratadine 10 mg tablet 10 mg PO DAILY PRN 04/04/18 fluticasone furoate-vilanterol 1 puff INHALATION DAILY 07/16/18 albuterol sulfate 2 puff IH Q4H PRN 11/16/18 mirtazapine 15 mg PO QHS 11/16/18 dicyclomine 10 mg PO ACHS 10/17/19 hydroxyzine HCl 50 mg PO BID 10/17/19 pantoprazole 40 mg PO BID 10/17/19 amlodipine 5 mg PO DAILY 07/28/20 duloxetine 20 mg PO DAILY 07/28/20 sucralfate 1 g PO ACHS 01/28/21 oxycodone 2.5 mg PO BID PRN PRN 02/14/21 Hospital Course Operations None Procedures None Summary of Care Provided Minutes Spent on Discharge: 35 Hospital Course: Per HPI: ANISA PABLO, is a 60 F who presents requesting for medical stabilization from alcohol abuse. Patient was recently admitted for the same reason. Discharged on 01/31/21. Patient stated that after discharge, she went back to drinking. She drinks about half a pint of vodka every day. Her admitting alcohol level was 394. Hospital Course: 1. Alcohol withdrawal/nicotine [id number] female presented from home requesting alcohol detox. She was recently discharged for alcohol withdrawal and is since she was discharged she went right back to drinking. She does have an appointment this morning at 9 AM with 180 for outpatient follow-up. She is also [facility] no beds but her residential case manager and social services designee working on it. No recurrence of her YADIRA like she had on her last admission however she did come a little bit anemic denies any blood in her stool. I do recommend that she follow-up with her PCP as an outpatient for monitoring of her anemia. I discussed with her the plan for discharge today and she expressed understanding of the risk benefits of going home and would like to go home today. Physical Exam Const alert, oriented x3 and no apparent distress General Appearance: cooperative HEENT normocephalic and moist oral mucous membranes Eyes PERRL, EOMs intact bilaterally and conjunctivae normal Neck supple and no JVD Resp normal respiratory effort, no retractions, no use of accessory muscles and clear to auscultation bilaterally Auscultation: Negative for crackles, rales, rhonchi or wheezes Cardio regular rate, regular rhythm, S1 normal heart sound, S2 normal heart sound and no murmurs GI soft to palpation, non-tender and non-distended; Negative for hepatosplenomegaly Extremity no clubbing, cyanosis or edema Skin no rashes or lesions noted Neuro no focal motor deficits and no sensory deficits noted Psych affect normal Appearance: appropriate Medical Records Data Medical Nutrition Assessment Dietitian: Nutrition Therapy Diagnosis Start: 02/14/21 11:29 Freq: Status: Active Protocol: Document 02/14/21 11:30 SLA (Rec: 02/14/21 11:42 SLA Desktop) Nutrition Malnutrition Evidence of Malnutrition Exists Yes Evidenced By Suboptimal Energy Intake ( Severe),Weight Loss (Severe) Weight / BMI Weight Weight: 112 lb 6.972 oz Body Mass Index (BMI) 19.3 ABG / Lab / Microbiology Data Result Diagrams: 02/16/21 06:00 02/16/21 06:00 Laboratory: Laboratory Results - last 24 hr 02/16/21 06:00: Sodium 131 L, Potassium 4.6, Chloride 95 L, Carbon Dioxide 34.0 H, Anion Gap 2 L, BUN 13, Creatinine 0.65, Estim Creat Clear Calc 75.03, Est GFR (MDRD) Af Amer 119, Est GFR (MDRD) Non-Af 98, BUN/Creatinine Ratio 19.9, Glucose 88, Calcium 8.5 02/16/21 06:00: WBC 5.8, RBC 2.90 L, Hgb 8.9 L, Hct 27.4 L, MCV 94.5, MCH 30.7, MCHC 32.5, RDW Std Deviation 54.1 H, RDW Coeff of Rebeca 15.7 H, Plt Count 246, MPV 8.8, Immature Gran % (Auto) 0.500, Neut % (Auto) 51.0, Lymph % (Auto) 31.7, [place] % (Auto) 10.6 H, Eos % (Auto) 5.7 H, Baso % (Auto) 0.5, Absolute Neuts (auto) 3.0, Absolute Lymphs (auto) 1.83, Nucleated RBC % 0 D/C Instructions Discharge Diet: No restrictions Call your doctor if you observe: Fever of 101 or Higher, Shortness of breath, Dizziness, Swelling in the ankles, Chest pain and Increased palpitations (irregular heartbeat) Meaningful Use Info Meaningful Use Diagnoses (Choose all that apply): None applicable Discharge Plan Admission Admit Date/Time: 02/13/21 23:05 Attending Provider: Nathanael Garcia Primary Care Provider: Kellie Delarosa Instructions Additional Instructions / Restrictions: Obtain a follow-up CBC by your PCP to evaluate your anemia. Discharge Orders/Prescriptions Prescriptions: Continued loratadine [Claritin] 10 mg tablet 10 mg PO DAILY PRN (Reason: Allergies) RF: 0 fluticasone furoate-vilanterol 1 EACH blister with device 1 puff inhalation DAILY RF: 0 mirtazapine 15 tablet 15 mg PO QHS RF: 0 albuterol sulfate 18 GM HFA aerosol inhaler 2 puff IH Q4H PRN (Reason: Sob &/Or Wheezing) RF: 0 hydroxyzine HCl 50 MG tablet 50 mg PO BID RF: 0 dicyclomine 10 MG capsule 10 mg PO ACHS RF: 0 pantoprazole 40 MG tablet 40 mg PO BID RF: 0 amlodipine 10 MG tablet 5 mg PO DAILY RF: 0 duloxetine 20 MG capsule,delayed release(DR/EC) 20 mg PO DAILY RF: 0 sucralfate 1 gram tablet 1 g PO ACHS RF: 0 oxycodone 5 mg tablet 2.5 mg PO BID PRN PRN (Reason: Back Pain) RF: 0 Referrals / Follow Up: Kellie Delarosa DO [Primary Care Provider] - 02/24/21 9:20 am (You will be seeing Dr. Dos Santos) Disposition Disposition (needs filled in before D/C Order can be placed): Home, Self Care Charges/Coding Visit Charges Inpatient E&M: 41127 Disch Hosp
== END 2021-02-16 09:23 | disposition home or self-care (01) | DRG 775 ==
LOC: ED 21:34 → MS3 23:51
PROVIDERS: Physician Assistant; Admitting Provider Internal Medicine; Emergency Provider Student in an Organized Health Care Education/Training Program; PCP Family Medicine; Visit Provider Family Medicine
DX: F10.229 Alcohol dependence with intoxication, unspecified (principal); F31.9 Bipolar disorder, unspecified; F13.10 Sedative, hypnotic or anxiolytic abuse, uncomplicated; J44.9 Chronic obstructive pulmonary disease, unspecified; F15.10 Other stimulant abuse, uncomplicated; K21.9 Gastro-esophageal reflux disease without esophagitis; I10 Essential (primary) hypertension; F41.9 Anxiety disorder, unspecified; F17.210 Nicotine dependence, cigarettes, uncomplicated; G89.29 Other chronic pain; Z79.899 Other long term (current) drug therapy; Z68.1 Body mass index [BMI] 19.9 or less, adult
CPT/HCPCS: 36415; 80048; 80053; 80307; 81001; 82077; 83690; 85025; 93005; 94640; 97802; 99283; 99406

== ENCOUNTER 2021-02-20 14:25 | Emergency (ER) | payer MEDICAID, SELFPAY ==
[2021-02-20 14:29] VITALS: BP 150/100; BP 154/100; PULSE 107; PULSE 110; RESP 18; RESP 28; TEMP 37.2; O2SAT 94; O2SAT 95; BMI 19.3
--- NOTE | 2021-02-20 14:57 | EDS_ITS ---
HPI History of Present Illness Chief Complaint: ETOH Intox Informant: patient Onset/Context/Timing Onset: Today Context: Gradual Onset Timing: Continuous Worsened by: Nothing Relieved by: Nothing Associated Symptoms Associated Symptoms: Positive for no; Negative for vomiting*, diarrhea*, fever*, rash*, seizure, tremor, palpatations, change in mental status, trauma, suicidal ideation and homicidal ideation Narrative Narrative: Patient presents requesting detox from alcohol. Patient states she drinks 1/5 of vodka per day. Patient states her last drink was earlier today. Patient denies any visual or auditory hallucinations. Patient denies any seizures. Patient denies any nausea or vomiting. Patient denies any diarrhea. Patient denies any fevers or chills. Patient states she has been through detox here in the past. Patient is unsure when her last detox was. Upon review of her records, her last detox was 1 week ago. [facility] Medical History Abnormal mammogram Alcohol abuse Anxiety Bipolar 1 disorder COPD (chronic obstructive pulmonary disease) GERD (gastroesophageal reflux disease) Hepatotoxicity, secondary to ETOH Insomnia Smoker Home Medications loratadine 10 mg tablet 10 mg PO DAILY PRN 04/04/18 [History Last Taken 12/31/20 20:30] fluticasone furoate-vilanterol 1 puff INHALATION DAILY 07/16/18 [History Last Taken 01/27/21] albuterol sulfate 2 puff IH Q4H PRN 11/16/18 [History Last Taken 01/27/21] mirtazapine 15 mg PO QHS 11/16/18 [History Last Taken 01/27/21] dicyclomine 10 mg PO ACHS 10/17/19 [History Last Taken 01/27/21] hydroxyzine HCl 50 mg PO BID 10/17/19 [History Last Taken 01/27/21] pantoprazole 40 mg PO BID 10/17/19 [History Last Taken 01/26/21] amlodipine 5 mg PO DAILY 07/28/20 [History Last Taken 01/27/21] duloxetine 20 mg PO DAILY 07/28/20 [History Last Taken 01/27/21] sucralfate 1 g PO ACHS 01/28/21 [History Last Taken 01/27/21] oxycodone 2.5 mg PO BID PRN PRN 02/14/21 [History Last Taken Unknown] Allergy/AdvReac Type Severity Reaction Status Date / Time Penicillins Allergy SOB, cold Verified 02/20/21 14:26 sweats Family History Mother Hypertension Thyroid disorder CVA (cerebral vascular accident) Sister Heart disease Surgical History History of History of hysterectomy Social History household members: friend(s) Smoking Status: Current every day smoker tobacco type: cigarettes alcohol intake: current substance use type: does not use ROS ROS ED Constitutional Constitutional ED: Denies chills or fever(s) Eyes Eyes: Denies blurry vision or change in vision ENT ENT ED: Denies rhinorrhea or sore throat Cardiovascular Cardiovascular: Denies chest pain or palpitations Respiratory/Chest Respiratory/Chest: Denies cough or dyspnea Gastrointestinal Gastrointestinal: Denies nausea or vomiting Genitourinary Genitourinary ED: Denies dysuria or hematuria Musculoskeletal Musculoskeletal: Denies back pain or neck pain Integumentary Denies abscess or rash Neurologic Neurologic: Denies headache(s) or weakness Allergic/Immunologic Allergic/Immunologic ED: Denies mouth swelling or urticaria EXAM Physical Exam Const Vital Signs: 02/20/21 14:29 Temperature 99.0 F Temperature Source Oral Pulse Rate 107 H Respiratory Rate 18 Blood Pressure 150/100 H Blood Pressure Mean 116 Blood Pressure Source Monitor Blood Pressure Position Supine Blood Pressure Location Right Arm Pulse Ox 94 Oxygen Delivery Method Room Air Positive well nourished, well developed and unkempt General Appearance ED: unkempt and well developed HEENT Reports moist mucous membranes Neck supple and no JVD Resp normal respiratory effort and clear to auscultation bilaterally Cardio regular rhythm and no murmurs Rate: tachycardic GI normal to inspection, nondistended, normoactive bowel sounds and non-tender Palpation: soft Extremity normal to inspection General Extremety ED: Negative for edema or tenderness General Extremity: Negative for edema Neuro oriented x3, CN's II-XII intact bilaterally and no sensory deficits noted Sensorium / Orientation: alert Motor Exam: strength 5/5 throughout Psych mental status grossly normal Appearance: unkempt Skin no rashes or lesions noted MDM MDM MDM Narrative Medical decision making narrative: CBC and comprehensive metabolic profile were within normal limits. Lipase was normal. Serum alcohol level is elevated 286. While here in the emergency department, the patient stated she wanted to leave and no longer wanted detox for alcohol. Her IV was removed and she was allowed to leave. Patient was directed return if worse in any way. Patient understood and was agreeable with the plan. Lab Data Attestation: I reviewed the patient's lab results. Labs: Laboratory Results - last 24 hr 02/20/21 02/20/21 02/20/21 15:16 15:16 15:16 WBC 5.8 RBC 3.41 L Hgb 10.5 L Hct 32.5 L MCV 95.3 MCH 30.8 MCHC 32.3 RDW Std Deviation 55.3 H RDW Coeff of Rebeca 15.7 H Plt Count 167 MPV 9.2 Immature Gran % (Auto) 0.300 Neut % (Auto) 57.2 Lymph % (Auto) 33.9 [place] % (Auto) 8.1 Eos % (Auto) 0.2 Baso % (Auto) 0.3 Absolute Neuts (auto) 3.3 Absolute Lymphs (auto) 1.97 Nucleated RBC % 0 Sodium 134 L Potassium 4.0 Chloride 97 L Carbon Dioxide 18.0 L Anion Gap 19 H BUN 17 Creatinine 1.12 H Estim Creat Clear Calc 43.63 Est GFR (MDRD) Af Amer 64 Est GFR (MDRD) Non-Af 53 L BUN/Creatinine Ratio 15.2 Glucose 74 Calcium 8.9 Total Bilirubin 0.40 AST 70 H ALT 45 Alkaline Phosphatase 85 Total Protein 8.4 H Albumin 3.9 Globulin 4.5 H Albumin/Globulin Ratio 0.9 Lipase 160 Ethyl Alcohol 286.0 Discharge Plan Triage Chief Complaint: ETOH Intox ED Provider: Tio Vivar Dx/Rx/DC Orders Clinical Impression: Alcohol abuse Prescriptions: No Action loratadine [Claritin] 10 mg tablet 10 mg PO DAILY PRN (Reason: Allergies) RF: 0 fluticasone furoate-vilanterol 1 EACH blister with device 1 puff inhalation DAILY RF: 0 mirtazapine 15 tablet 15 mg PO QHS RF: 0 albuterol sulfate 18 GM HFA aerosol inhaler 2 puff IH Q4H PRN (Reason: Sob &/Or Wheezing) RF: 0 hydroxyzine HCl 50 MG tablet 50 mg PO BID RF: 0 dicyclomine 10 MG capsule 10 mg PO ACHS RF: 0 pantoprazole 40 MG tablet 40 mg PO BID RF: 0 amlodipine 10 MG tablet 5 mg PO DAILY RF: 0 duloxetine 20 MG capsule,delayed release(DR/EC) 20 mg PO DAILY RF: 0 sucralfate 1 gram tablet 1 g PO ACHS RF: 0 oxycodone 5 mg tablet 2.5 mg PO BID PRN PRN (Reason: Back Pain) RF: 0 Primary Care Provider: Kellie Delarosa Referrals: Kellie Delarosa DO [Primary Care Provider] - 1-2 Weeks Disposition Disposition: Home, Self Care Discharge Date/Time: 02/20/21 15:42
--- NOTE | 2021-02-20 15:36 | ED.RN ---
PT STATES I'M LEAVING. DR WAS INFORMED AND STATED OKAY. PT WAS ASKED WHERE SHE WAS GOING. SHE ANSWERED HER SON ON [address]. SHE IS CALLING [employer] FOR TRANSPORT. PT WAS AMBULATED TO TRIAGE. NO SIGNS OF IMPAIRED GAIT OR BALANCE DISORDERS. Brian DELAROSA, RN [id number]
[2021-02-20 15:50] LABS: ALB/GLOB Ratio 0.9 RATIO (0.9-2.4); AST(SGOT) 70 U/L (15-37); Alanine Aminotransfer ALT/SGPT 45 U/L (13-56); Albumin, Serum 3.9 g/dL (3.2-5.0); Alkaline Phosphatase 85 U/L (45-117); Anion Gap 19 (5-15); BUN 17 mg/dL (7-18); BUN/Creat Ratio 15.2 RATIO (10-20); Calcium,Total 8.9 mg/dL (8.5-10.1); Chloride 97 mmol/L (98-107); Creatinine, Serum 1.12 mg/dL (0.55-1.02); EST Glomerular Filtration Rate 53 mL/min (>60); Est Glom Filt Rate - Afr Amer 64 mL/min (>60); Estimated Creatinine Clearance 43.63 ml/min; Globulin 4.5 g/dL (2.2-4.2); Glucose 74 mg/dL (74-106); Lipase 160 U/L (73-393); Protein, Total 8.4 g/dL (6.4-8.2); Sodium Level 134 mmol/L (136-145)
[2021-02-20 15:51] LABS: Absolute Lymphocyte Count 1.97 X10^3/uL (0.83-4.51); Absolute Neutrophil Count 3.3 X10^3/uL (2.0-7.7); Basophil# 0.02 X10^3/uL; Basophil% 0.3 % (0-1); Eosinophil# 0.01 X10^3/uL; Eosinophils% 0.2 % (0-5); Hematocrit 32.5 % (37-47); Hemoglobin 10.5 g/dL (12.0-15.0); Lymphocyte # 1.97 X10^3/ul (0.83-4.51); Lymphocyte % 33.9 % (19-41); Mean Corp Hgb Conc 32.3 g/dL (32-36); Mean Corpuscular Hgb 30.8 pg (27.0-32.0); Mean Corpuscular Volume 95.3 fL (81-99); Mean Platelet Vol. 9.2 fl (6.2-12.0); Monocyte# 0.47 X10^3/uL; Monocyte% 8.1 % (0-10); NRBC Flagged by Analyzer 0 % (0-5); Neutrophil # 3.32 X10^3/uL (2.7-7.7); Neutrophil % 57.2 % (47-70); Platelet Count 167 K/mm3 (150-450); RBC Distribution Width CV 15.7 % (11.6-14.6); RBC Distribution Width SD 55.3 fl (35.1-43.9); Red Blood Count 3.41 M/mm3 (4.2-5.4); White Blood Count 5.8 K/mm3 (4.4-11.0)
== END 2021-02-20 15:42 | disposition home or self-care (01) ==
PROVIDERS: Emergency Provider Emergency Medicine; PCP Family Medicine
DX: F10.129 Alcohol abuse with intoxication, unspecified (principal); J44.9 Chronic obstructive pulmonary disease, unspecified; K21.9 Gastro-esophageal reflux disease without esophagitis; F41.9 Anxiety disorder, unspecified; F31.9 Bipolar disorder, unspecified; Z79.899 Other long term (current) drug therapy; Z79.51 Long term (current) use of inhaled steroids; F17.210 Nicotine dependence, cigarettes, uncomplicated; Y90.8 Blood alcohol level of 240 mg/100 ml or more
CPT/HCPCS: 80053; 82077; 83690; 85025; 99282; A4216

== ENCOUNTER 2021-02-23 10:30 | Inpatient (IN) | payer MEDICAID, SELFPAY ==
[2021-02-23] VITALS (9 sets, daily range): BP systolic 103–145; BP diastolic 82–89; PULSE 95–140; RESP 16–18; TEMP 36.6–36.9; O2SAT 97–99; BMI 18.7; BMI 19.3
--- NOTE | 2021-02-23 10:57 | EX.ED.SAOD ---
HPI History of Present Illness Chief Complaint: ETOH Intox Onset/Context/Timing Onset: Today Context: Gradual Onset Timing: Continuous Worsened by: Nothing Relieved by: Nothing Associated Symptoms Associated Symptoms: Negative for vomiting*, diarrhea*, fever*, rash*, seizure, tremor, palpatations and change in mental status Narrative Narrative: Patient presents requesting detox from alcohol. Patient states she normally drinks 1/5 of vodka per day. Patient states she drank half of that today. Patient states she has been through detox here in the past. Patient was actually seen in the ER 3 days ago requesting detox but left prior to admission. Patient states her last detox was approximately 2 weeks ago. Patient denies any nausea or vomiting. Patient denies any seizures or tremors. Patient admits to a mild headache. Patient denies any drug use. PFSH PFS Medical History Abnormal mammogram Alcohol abuse Anxiety Bipolar 1 disorder COPD (chronic obstructive pulmonary disease) GERD (gastroesophageal reflux disease) Hepatotoxicity, secondary to ETOH Insomnia Smoker Home Medications loratadine 10 mg tablet 10 mg PO DAILY PRN 04/04/18 [History Last Taken 12/31/20 20:30] fluticasone furoate-vilanterol 1 puff INHALATION DAILY 07/16/18 [History Last Taken 01/27/21] albuterol sulfate 2 puff IH Q4H PRN 11/16/18 [History Last Taken 01/27/21] mirtazapine 15 mg PO QHS 11/16/18 [History Last Taken 01/27/21] dicyclomine 10 mg PO ACHS 10/17/19 [History Last Taken 01/27/21] hydroxyzine HCl 50 mg PO BID 10/17/19 [History Last Taken 01/27/21] pantoprazole 40 mg PO BID 10/17/19 [History Last Taken 01/26/21] amlodipine 5 mg PO DAILY 07/28/20 [History Last Taken 01/27/21] duloxetine 20 mg PO DAILY 07/28/20 [History Last Taken 01/27/21] sucralfate 1 g PO ACHS 01/28/21 [History Last Taken 01/27/21] baclofen 5 - 10 mg PO TID PRN PRN 02/23/21 [History Last Taken Unknown] doxepin 10 mg PO TID PRN PRN 02/23/21 [History Last Taken Unknown] gabapentin 100 mg PO DAILY 02/23/21 [History Last Taken Unknown] gabapentin 200 mg PO QHS 02/23/21 [History Last Taken Unknown] tramadol 50 mg PO BID PRN PRN 02/23/21 [History Last Taken Unknown] trazodone 25 - 50 mg PO TID PRN PRN 02/23/21 [History Last Taken Unknown] Allergy/AdvReac Type Severity Reaction Status Date / Time Penicillins Allergy SOB, cold Verified 02/23/21 10:44 sweats Family History Mother Hypertension Thyroid disorder CVA (cerebral vascular accident) Sister Heart disease Surgical History History of History of hysterectomy Social History household members: friend(s) Smoking Status: Current every day smoker tobacco type: cigarettes alcohol intake: current substance use type: does not use ROS ROS ED Constitutional Constitutional ED: Denies chills or fever(s) Eyes Eyes: Denies blurry vision or change in vision ENT ENT ED: Reports rhinorrhea; Denies sore throat Cardiovascular Cardiovascular: Denies chest pain or palpitations Respiratory/Chest Respiratory/Chest: Denies cough or dyspnea Gastrointestinal Gastrointestinal: Denies nausea or vomiting Genitourinary Genitourinary ED: Denies dysuria or hematuria Musculoskeletal Musculoskeletal: Reports back pain; Denies neck pain Integumentary Denies abscess or rash Neurologic Neurologic: Reports headache(s); Denies weakness Allergic/Immunologic Allergic/Immunologic ED: Denies mouth swelling or urticaria EXAM Physical Exam Const Vital Signs: 02/23/21 10:33 02/23/21 10:34 02/23/21 11:33 Temperature 98.5 F 98.5 F Temperature Source Oral Oral Pulse Rate 118 H 140 H Respiratory Rate 16 16 16 Blood Pressure 145/89 H 145/86 H Blood Pressure Mean 107 105 Pulse Ox 99 97 Oxygen Delivery Method Room Air Room Air Positive well nourished, well developed and unkempt General Appearance ED: unkempt, well developed and NAD HEENT Reports moist mucous membranes Neck supple and no JVD Resp normal respiratory effort and clear to auscultation bilaterally Cardio regular rate and regular rhythm GI soft to palpation, non-tender and non-distended Neuro oriented x3, CN's II-XII intact bilaterally and no sensory deficits noted Sensorium / Orientation: alert Motor Exam: strength 5/5 throughout Psych mental status grossly normal Appearance: unkempt MDM MDM MDM Narrative Medical decision making narrative: Patient was given IV fluids and phenobarbital here. CBC shows mild anemia with a hemoglobin of 10.7 hematocrit 32.4. Comprehensive metabolic profile showed a sodium of 128 and chloride of 91. CO2 was 19. Lipase was normal. Urinalysis does not show any evidence of urinary tract infection. Urine toxin was positive for barbiturates and methamphetamine. Serum alcohol level was elevated at 208. Case was discussed with the hospitalist. He will admit the patient to his service. Nurse reported to me that she went into the room and found the patient drinking vodka. Nursing staff disposed of the remaining vodka. Patient is still agreeable to be admitted for detox. Lab Data Labs: Laboratory Results - last 24 hr 02/23/21 02/23/21 02/23/21 10:44 10:44 11:05 WBC 5.1 RBC 3.47 L Hgb 10.7 L Hct 32.4 L MCV 93.4 MCH 30.8 MCHC 33.0 RDW Std Deviation 50.6 H RDW Coeff of Rebeca 14.8 H Plt Count 220 MPV 9.9 Immature Gran % (Auto) 0.600 Neut % (Auto) 59.4 Lymph % (Auto) 30.3 [place] % (Auto) 8.1 Eos % (Auto) 1.2 Baso % (Auto) 0.4 Absolute Neuts (auto) 3.0 Absolute Lymphs (auto) 1.53 Nucleated RBC % 0 Sodium Potassium Chloride Carbon Dioxide Anion Gap BUN Creatinine Estim Creat Clear Calc Est GFR (MDRD) Af Amer Est GFR (MDRD) Non-Af BUN/Creatinine Ratio Glucose Calcium Total Bilirubin AST ALT Alkaline Phosphatase Total Protein Albumin Globulin Albumin/Globulin Ratio Lipase Urine Color Yellow Urine Clarity Clear Urine pH 6.0 Ur Specific [place] 1.015 Urine Protein 100 H Urine Glucose (UA) Normal Urine Ketones 150 A* Urine Occult Blood 25 H Urine Nitrite Negative Urine Bilirubin Negative Urine Urobilinogen Normal Ur Leukocyte Esterase Negative Urine RBC 0-5 SEEN Urine WBC 0-5 SEEN Ur Squamous Epith Cells 5-10 SEEN Urine Bacteria 1+ Urine Mucus 1+ Urine Opiates Screen NEGATIVE Urine Methadone Screen NEGATIVE Ur Barbiturates Screen POSITIVE H Ur Phencyclidine Scrn NEGATIVE Ur Amphetamines Screen NEGATIVE U Methamphetamin-MDMA POSITIVE H U Benzodiazepines Scrn NEGATIVE Urine Cocaine Screen NEGATIVE U Cannabinoids Screen NEGATIVE Ur Drug Screen Comment Ethyl Alcohol 02/23/21 02/23/21 11:05 11:05 WBC RBC Hgb Hct MCV MCH MCHC RDW Std Deviation RDW Coeff of Rebeca Plt Count MPV Immature Gran % (Auto) Neut % (Auto) Lymph % (Auto) [place] % (Auto) Eos % (Auto) Baso % (Auto) Absolute Neuts (auto) Absolute Lymphs (auto) Nucleated RBC % Sodium 128 L Potassium 3.9 Chloride 91 L Carbon Dioxide 19.0 L Anion Gap 18 H BUN 11 Creatinine 1.20 H Estim Creat Clear Calc 40.72 Est GFR (MDRD) Af Amer 59 L Est GFR (MDRD) Non-Af 49 L BUN/Creatinine Ratio 9.2 L Glucose 80 Calcium 9.7 Total Bilirubin 0.60 AST 80 H ALT 46 Alkaline Phosphatase 97 Total Protein 9.1 H Albumin 4.4 Globulin 4.7 H Albumin/Globulin Ratio 0.9 Lipase 226 Urine Color Urine Clarity Urine pH Ur Specific [place] Urine Protein Urine Glucose (UA) Urine Ketones Urine Occult Blood Urine Nitrite Urine Bilirubin Urine Urobilinogen Ur Leukocyte Esterase Urine RBC Urine WBC Ur Squamous Epith Cells Urine Bacteria Urine Mucus Urine Opiates Screen Urine Methadone Screen Ur Barbiturates Screen Ur Phencyclidine Scrn Ur Amphetamines Screen U Methamphetamin-MDMA U Benzodiazepines Scrn Urine Cocaine Screen U Cannabinoids Screen Ur Drug Screen Comment Ethyl Alcohol 208.0 Treatment and Re-Evaluation Vital Sign Attestation:: Vital signs were reviewed prior to admission. Patient's tachycardia has improved but is still 118. Remaining vital signs are stable. Discharge Plan Triage Chief Complaint: ETOH Intox ED Provider: Tio Vivar Dx/Rx/DC Orders Clinical Impression: Alcohol dependence Prescriptions: No Action loratadine [Claritin] 10 mg tablet 10 mg PO DAILY PRN (Reason: Allergies) RF: 0 fluticasone furoate-vilanterol 1 EACH blister with device 1 puff inhalation DAILY RF: 0 mirtazapine 15 tablet 15 mg PO QHS RF: 0 albuterol sulfate 18 GM HFA aerosol inhaler 2 puff IH Q4H PRN (Reason: Sob &/Or Wheezing) RF: 0 hydroxyzine HCl 50 MG tablet 50 mg PO BID RF: 0 dicyclomine 10 MG capsule 10 mg PO ACHS RF: 0 pantoprazole 40 MG tablet 40 mg PO BID RF: 0 amlodipine 10 MG tablet 5 mg PO DAILY RF: 0 duloxetine 20 MG capsule,delayed release(DR/EC) 20 mg PO DAILY RF: 0 sucralfate 1 gram tablet 1 g PO ACHS RF: 0 trazodone 50 mg Tablet 25 - 50 mg PO TID PRN PRN (Reason: Insomnia) RF: 0 doxepin 10 mg Capsule 10 mg PO TID PRN PRN (Reason: Anxiety) RF: 0 tramadol 50 mg Tablet 50 mg PO BID PRN PRN (Reason: Pain) RF: 0 baclofen 10 mg Tablet 5 - 10 mg PO TID PRN PRN (Reason: Spasms) RF: 0 gabapentin 100 mg Capsule 200 mg PO QHS RF: 0 gabapentin 100 mg Capsule 100 mg PO DAILY RF: 0 Primary Care Provider: Kellie Delarosa Referrals: Kellie Delarosa DO [Primary Care Provider] - Disposition Disposition: Acute Care Hospital [facility]
[2021-02-23 11:10] LABS: Absolute Lymphocyte Count 1.53 X10^3/uL (0.83-4.51); Basophil# 0.02 X10^3/uL; Basophil% 0.4 % (0-1); Eosinophil# 0.06 X10^3/uL; Eosinophils% 1.2 % (0-5); Hematocrit 32.4 % (37-47); Hemoglobin 10.7 g/dL (12.0-15.0); Lymphocyte # 1.53 X10^3/ul (0.83-4.51); Lymphocyte % 30.3 % (19-41); Mean Corpuscular Hgb 30.8 pg (27.0-32.0); Mean Corpuscular Volume 93.4 fL (81-99); Mean Platelet Vol. 9.9 fl (6.2-12.0); Monocyte# 0.41 X10^3/uL; Monocyte% 8.1 % (0-10); NRBC Flagged by Analyzer 0 % (0-5); Neutrophil % 59.4 % (47-70); Platelet Count 220 K/mm3 (150-450); RBC Distribution Width CV 14.8 % (11.6-14.6); RBC Distribution Width SD 50.6 fl (35.1-43.9); Red Blood Count 3.47 M/mm3 (4.2-5.4); White Blood Count 5.1 K/mm3 (4.4-11.0)
[2021-02-23 11:23] LABS: Color, Urine Yellow (Yellow); Glucose, Dipstick Normal (Normal); Leukocyte Esterase-Dipstick Negative /ul (Negative); Nitrite-Dipstick Negative (Negative); Occult Blood-Urine 25 /ul (Negative); Protein-Dipstick 100 mg/dl (Negative); Specific Gravity, Urine 1.015 (1.002-1.030); Urine Bilirubin Dipstick Negative (Negative); Urine Clarity Clear (Clear); Urine Urobilinogen Normal (Normal)
[2021-02-23 11:26] LABS: Ketone-Dipstick 150 mg/dl (Negative)
[2021-02-23 11:30] LABS: Bacteria 1+ /hpf (None Seen); Mucous, Urine 1+ /hpf (<or=2+); Red Blood Cells-Urine 0-5 SEEN /hpf (0-5); Squamous Epithelial Cells - UA 5-10 SEEN /hpf (5-10); White Blood Cells 0-5 SEEN /hpf (0-5)
[2021-02-23 11:34] LABS: ALB/GLOB Ratio 0.9 RATIO (0.9-2.4); AST(SGOT) 80 U/L (15-37); Alanine Aminotransfer ALT/SGPT 46 U/L (13-56); Albumin, Serum 4.4 g/dL (3.2-5.0); Alkaline Phosphatase 97 U/L (45-117); Anion Gap 18 (5-15); BUN 11 mg/dL (7-18); BUN/Creat Ratio 9.2 RATIO (10-20); Calcium,Total 9.7 mg/dL (8.5-10.1); Chloride 91 mmol/L (98-107); EST Glomerular Filtration Rate 49 mL/min (>60); Est Glom Filt Rate - Afr Amer 59 mL/min (>60); Estimated Creatinine Clearance 40.72 ml/min; Globulin 4.7 g/dL (2.2-4.2); Glucose 80 mg/dL (74-106); Lipase 226 U/L (73-393); Potassium 3.9 mmol/L (3.5-5.1); Protein, Total 9.1 g/dL (6.4-8.2); Sodium Level 128 mmol/L (136-145)
[2021-02-23] MEDS: 0.9% Normal Saline 1,000 ML 1000 ML IV (11:35)
[2021-02-23] MEDS: Phenobarbital 32.4 MG Tablet PO (11:35)
[2021-02-23 11:40] LABS: Amphetamine Urine VISTA NEGATIVE (<1000 ng/mL); Barbiturate Urine VISTA POSITIVE (< 200 ng/mL); Benzodiazepine Urine VISTA NEGATIVE (< 200 ng/mL); Cocaine Urine VISTA NEGATIVE (< 300 ng/mL); Ecstacy Urine VISTA POSITIVE (< 500 ng/mL); Methadone Urine VISTA NEGATIVE (< 300 ng/mL); PCP Urine VISTA NEGATIVE (< 25 ng/mL); THC Urine VISTA NEGATIVE (< 50 ng/mL); Vista UDS pH Range 6
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
--- NOTE | 2021-02-23 12:29 | ED.RN ---
pt asked for water. This nurse walked back in pts room to give her water and pt was chugging vodka from a bottle. Bottle was taken from the pt and was poured out in the sink.
--- NOTE | 2021-02-23 12:53 | HP.PCM.HOS_ITS ---
HPI - General General Date of Admission: 02/23/21 Date of Service: 02/23/21 Chief Complaint: requesting detox HPI Narrative ANISA PABLO, is a 60 F who presents intoxicated requesting alcohol detoxification. Patient is intoxicated and is a poor historian and cannot tell me coherently why she is going to get treatment. Reviewing patient was just discharged on the with alcohol withdrawal. Patient is unable to tell me when she started resuming drinking again. She was also admitted from January 28 and January 0109-05. Additionally patient was in the emergency room on 20 February and left AGAINST MEDICAL ADVICE. [facility] Medical History Abnormal mammogram Alcohol abuse Anxiety Bipolar 1 disorder COPD (chronic obstructive pulmonary disease) GERD (gastroesophageal reflux disease) Hepatotoxicity, secondary to ETOH Insomnia Smoker Home Medications loratadine 10 mg tablet 10 mg PO DAILY PRN 04/04/18 [History Last Taken 12/31/20 20:30] fluticasone furoate-vilanterol 1 puff INHALATION DAILY 07/16/18 [History Last Taken 01/27/21] albuterol sulfate 2 puff IH Q4H PRN 11/16/18 [History Last Taken 01/27/21] mirtazapine 15 mg PO QHS 11/16/18 [History Last Taken 01/27/21] dicyclomine 10 mg PO ACHS 10/17/19 [History Last Taken 01/27/21] hydroxyzine HCl 50 mg PO BID 10/17/19 [History Last Taken 01/27/21] pantoprazole 40 mg PO BID 10/17/19 [History Last Taken 01/26/21] amlodipine 5 mg PO DAILY 07/28/20 [History Last Taken 01/27/21] duloxetine 20 mg PO DAILY 07/28/20 [History Last Taken 01/27/21] sucralfate 1 g PO ACHS 01/28/21 [History Last Taken 01/27/21] baclofen 5 - 10 mg PO TID PRN PRN 02/23/21 [History Last Taken Unknown] doxepin 10 mg PO TID PRN PRN 02/23/21 [History Last Taken Unknown] gabapentin 100 mg PO DAILY 02/23/21 [History Last Taken Unknown] gabapentin 200 mg PO QHS 02/23/21 [History Last Taken Unknown] tramadol 50 mg PO BID PRN PRN 02/23/21 [History Last Taken Unknown] trazodone 25 - 50 mg PO TID PRN PRN 02/23/21 [History Last Taken Unknown] Allergy/AdvReac Type Severity Reaction Status Date / Time Penicillins Allergy SOB, cold Verified 02/23/21 10:44 sweats Family History Mother Hypertension Thyroid disorder CVA (cerebral vascular accident) Sister Heart disease Surgical History History of History of hysterectomy Social History household members: friend(s) Smoking Status: Current every day smoker tobacco type: cigarettes alcohol intake: current substance use type: does not use ROS Review of Systems ROS Unobtainable: other Details: Intoxication Vital Signs Vital Signs Vital Signs: 02/23/21 10:33 02/23/21 10:34 02/23/21 11:33 Temperature 36.9 C 36.9 C Temperature Source Oral Oral Pulse Rate 118 H 140 H Respiratory Rate 16 16 16 Blood Pressure 145/89 H 145/86 H Blood Pressure Mean 107 105 Pulse Ox 99 97 Oxygen Delivery Method Room Air Room Air Weight Weight: 51.1 kg Body Mass Index (BMI) 18.7 Physical Exam Const Constitutional Narrative: Appears older than stated age. Afebrile. Smells of marijuana Resp normal respiratory effort and clear to auscultation bilaterally Cardio regular rate, regular rhythm, S1 normal heart sound and S2 normal heart sound GI normal to inspection, nondistended, normoactive bowel sounds, soft to palpation, non-tender and non-distended Extremity normal to inspection Results Lab / Micro Data Result Diagrams: 02/23/21 11:05 02/23/21 11:05 Labs: Laboratory Results - last 24 hr 02/23/21 10:44: Urine Color Yellow, Urine Clarity Clear, Urine pH 6.0, Ur Specific [place] 1.015, Urine Protein 100 H, Urine Glucose (UA) Normal, Urine Ketones 150 A*, Urine Occult Blood 25 H, Urine Nitrite Negative, Urine Bilirubin Negative, Urine Urobilinogen Normal, Ur Leukocyte Esterase Negative, Urine RBC 0-5 SEEN, Urine WBC 0-5 SEEN, Ur Squamous Epith Cells 5-10 SEEN, Urine Bacteria 1+, Urine Mucus 1+ 02/23/21 10:44: Urine Opiates Screen NEGATIVE, Urine Methadone Screen NEGATIVE, Ur Barbiturates Screen POSITIVE H, Ur Phencyclidine Scrn NEGATIVE, Ur Amphetamines Screen NEGATIVE, U Methamphetamin-MDMA POSITIVE H, U Benzodiazepines Scrn NEGATIVE, Urine Cocaine Screen NEGATIVE, U Cannabinoids Screen NEGATIVE, Ur Drug Screen Comment 02/23/21 11:05: WBC 5.1, RBC 3.47 L, Hgb 10.7 L, Hct 32.4 L, MCV 93.4, MCH 30.8, MCHC 33.0, RDW Std Deviation 50.6 H, RDW Coeff of Rebeca 14.8 H, Plt Count 220, MPV 9.9, Immature Gran % (Auto) 0.600, Neut % (Auto) 59.4, Lymph % (Auto) 30.3, [place] % (Auto) 8.1, Eos % (Auto) 1.2, Baso % (Auto) 0.4, Absolute Neuts (auto) 3.0, Absolute Lymphs (auto) 1.53, Nucleated RBC % 0 02/23/21 11:05: Sodium 128 L, Potassium 3.9, Chloride 91 L, Carbon Dioxide 19.0 L, Anion Gap 18 H, BUN 11, Creatinine 1.20 H, Estim Creat Clear Calc 40.72, Est GFR (MDRD) Af Amer 59 L, Est GFR (MDRD) Non-Af 49 L, BUN/Creatinine Ratio 9.2 L, Glucose 80, Calcium 9.7, Total Bilirubin 0.60, AST 80 H, ALT 46, Alkaline Phosphatase 97, Total Protein 9.1 H, Albumin 4.4, Globulin 4.7 H, Albumin/Globulin Ratio 0.9, Lipase 226 02/23/21 11:05: Ethyl Alcohol 208.0 Assessment & Plan Assessment/Plan (1) Alcohol abuse: PLAN: 1. Alcohol abuse Patient requesting countless emergency room physician, treatment for alcohol withdrawal. She did receive the phenobarbital in the emergency room but I am not going to continue that at this point. Patient was just discharged on the and I am unclear how much she has been drinking and when she started d rinking again. I would like to hold that medication anyways I do to get a coherent history from her because of her current intoxication. Continue with thiamine and folate Addiction medicine to further facilitate additional therapy and recommendations after discharge Patient smells of marijuana but she denies it but her drug screen was positive for barbiturates and as well as methamphetamines. Given this patient's frequent hospitalizations and quick relapses I am very concerned that this patient again will fail maintaining sobriety 2. Starvation ketosis Secondary to alcohol IV fluids 3. VTE prophylaxis Moderate risk Enoxaparin Charges/Coding Visit Charges Inpatient E&M: 70776 Init Hosp L2
[2021-02-23] MEDS: 0.9% Normal Saline 1,000 ML 200 ML IV (15:49)
[2021-02-23] MEDS: Dicyclomine 10 MG Capsule PO ×2 (15:49→21:05)
[2021-02-23] MEDS: Sucralfate 1 GM Tablet PO ×2 (15:49→21:05)
--- NOTE | 2021-02-23 16:11 | NURSING ---
pt unsure of medications she takes at home. unable to complete home medication list
[2021-02-23] MEDS: Budesonide Respules 0.5 MG/2 ML AMPUL.NEB. INHALATION (18:47)
[2021-02-23] MEDS: Albuterol 2.5 MG/3 ML VIAL.NEB. INHALATION ×2 (18:48→23:14)
[2021-02-23] MEDS: Ibuprofen 600 MG Tablet PO (19:43)
[2021-02-23] MEDS: Baclofen 10 MG Tablet PO (20:26)
[2021-02-23] MEDS: Ondansetron 8 MG Tablet PO (20:26)
[2021-02-23] MEDS: Doxepin Hydrochloride 10 MG Capsule PO (20:26)
--- NOTE | 2021-02-23 20:43 | NURSING ---
Pandemic documentation initiated 0n 02/23/21 @ 2043.
[2021-02-23] MEDS: hydrOXYzine PAM 25 MG Capsule 50 MG PO (21:05)
[2021-02-23] MEDS: Pantoprazole Sodium 40 MG Tablet PO (21:05)
[2021-02-23] MEDS: traZODone 50 MG Tablet 25 MG PO (21:05)
[2021-02-24] VITALS (10 sets, daily range): BP systolic 122–157; BP diastolic 70–107; PULSE 82–113; RESP 12–20; TEMP 36.2–37.2; O2SAT 95–99
[2021-02-24] MEDS: Mirtazapine 15 MG Tablet PO ×2 (00:46→21:09)
[2021-02-24] MEDS: Polyethylene Glycol 3350 17 GM PACKET PO (00:46)
[2021-02-24 05:30] LABS: ALB/GLOB Ratio 1.1 RATIO (0.9-2.4); AST(SGOT) 53 U/L (15-37); Alanine Aminotransfer ALT/SGPT 34 U/L (13-56); Albumin, Serum 3.5 g/dL (3.2-5.0); Alkaline Phosphatase 77 U/L (45-117); Anion Gap 9 (5-15); BUN 6 mg/dL (7-18); BUN/Creat Ratio 5.6 RATIO (10-20); Calcium,Total 8.3 mg/dL (8.5-10.1); Chloride 100 mmol/L (98-107); Creatinine, Serum 1.07 mg/dL (0.55-1.02); EST Glomerular Filtration Rate 56 mL/min (>60); Est Glom Filt Rate - Afr Amer 67 mL/min (>60); Estimated Creatinine Clearance 45.85 ml/min; Globulin 3.3 g/dL (2.2-4.2); Glucose 100 mg/dL (74-106); Potassium 2.8 mmol/L (3.5-5.1); Protein, Total 6.8 g/dL (6.4-8.2); Sodium Level 134 mmol/L (136-145)
[2021-02-24] MEDS: Sucralfate 1 GM Tablet PO ×4 (06:48→21:08)
[2021-02-24] MEDS: Dicyclomine 10 MG Capsule PO ×4 (06:48→21:08)
[2021-02-24] MEDS: Albuterol 2.5 MG/3 ML VIAL.NEB. INHALATION ×3 (06:58→19:49)
[2021-02-24] MEDS: Folic Acid 1 MG Tablet PO (08:11)
[2021-02-24] MEDS: Thiamine Hydrochloride 100 MG Tablet PO (08:11)
[2021-02-24] MEDS: Potassium Chloride Oral Tablet 20 MEQ 40 MEQ PO (08:11)
--- NOTE | 2021-02-24 10:55 | ADDICTION ---
This rewriter met with PT to conduct ASAM, MSE, AUDIT assessments and to plan for d/c. PT A+Ox4 and participated actively. All assessments completed, faxed to [facility] and placed in PT's chart. PT plans to admit to [facility] for residential and counseling services. PT indicated a need for transportation post d/c from [facility] on 03/01. [facility] will provide transportation.
[2021-02-24] MEDS: amLODIPine 5 MG Tablet PO (11:38)
[2021-02-24] MEDS: Pantoprazole Sodium 40 MG Tablet PO ×2 (11:38→21:08)
[2021-02-24] MEDS: Enoxaparin 40 MG/0.4 ML Syringe SC (11:38)
[2021-02-24] MEDS: DULoxetine Hcl 20 MG Capsule PO (11:38)
[2021-02-24] MEDS: Phenobarbital 32.4 MG Tablet PO ×3 (12:39→21:07)
--- NOTE | 2021-02-24 14:10 | CHAPLAIN ---
Type of Pastoral Visit _x__ Initial Visit ___ Follow-up Visit ___ On-call Visit ___ General Patient Visit ___ Spiritual Assessment ___ Family Conference ___ Bereavement ___ Rapid Response ___ Code Blue ___ Other (describe below) Pastoral Care Referral From _x__ Patient ___ Family ___ Nurse ___ Physician ___ County Nurse ___ Cheese Processor ___ Other (describe below) Sacrament/Intervention _x__ Active listening ___ Anointing ___ Judaism ___ Bereavement ___ Communion ___ Shavon exploration ___ ___ Life review _x__ Prayer ___ Reconciliation ___ Sacrament of Sick ___ Supportive presence ___ Wedding ___ Other (describe below) Pastoral Comments patient is tearful and gives brief description of her situation; pt requests prayer for support and a return visit when she is feeling better
--- NOTE | 2021-02-24 14:36 | PCM.PN.HOSP ---
Subjective Subjective Patient is very anxious and tremulous. Patient recognizes that she is illness hospital numerous times in a short period of time for alcohol withdrawal but is never followed up. Patient still adamant that she wants to get sober. Objective Data Objective Data Vital Signs: Vital Signs Temp Pulse Resp BP Pulse Ox 36.7 C 109 H 16 157/107 H 97 02/24/21 11:46 02/24/21 11:46 02/24/21 11:46 02/24/21 11:46 02/24/21 11:46 Oxygen Delivery Method Room Air Weight: 51.3 kg Body Mass Index (BMI) 19.3 Intake & Output: Intake and Output for Last 24 Hours 02/22/21 02/23/21 02/24/21 23:59 23:59 23:59 Intake Total 2400 / 2400 1380 / 1380 Balance 2400 / 2400 1380 / 1380 Medical Nutrition Assessment Dietitian: Malnutrition Criteria Met Start: 02/23/21 15:29 Freq: Status: Active Protocol: Document 02/23/21 15:52 RMA (Rec: 02/23/21 15:55 RMA [id number]) Nutrition Malnutrition Evidence of Malnutrition Exists Yes Malnutrition (severe): Social/Behavioral/ Environmental Evidenced By Suboptimal Energy Intake ( Severe),Weight Loss (Severe), Physical Changes (Severe) Clinical Problem Chronic Disease or Condition Related Malnutrition Etiology Severe protein-calorie malnutrition in the context of social circumstance/ETOH abuse related to inadequate energy intake and low nutrient density Signs/Symptoms as evidenced by ~21% wt loss x past 4-5 months, ongoing poor PO meeting less than 25-50% of estimated nutrition needs and physical signs of severe muscle and fat wasting in the face, orbitals and clavicle. Status Active Problem Recommendation Dietitian Recommendations/Changes Suggest liberal Regular diet as able to advance PO nutrition. Pt will benefit from oral nutrition supplements--ensure enlive w/ medpass and magic cup w/ meals as diet advanced. May need to consider TF support for energy/protein repletion if pt unable to take adequate PO to meet increased nutrition needs. Monitor for signs and symptoms of refeeding syndrome as diet advances. Lab / Micro Data Result Diagrams: 02/23/21 11:05 02/24/21 04:56 Labs: Laboratory Results - last 24 hr 02/24/21 04:56: Sodium 134 L, Potassium 2.8 L, Chloride 100, Carbon Dioxide 25.0, Anion Gap 9, BUN 6 L, Creatinine 1.07 H, Estim Creat Clear Calc 45.85, Est GFR (MDRD) Af Amer 67, Est GFR (MDRD) Non-Af 56 L, BUN/Creatinine Ratio 5.6 L, Glucose 100, Calcium 8.3 L, Total Bilirubin 0.90, AST 53 H, ALT 34, Alkaline Phosphatase 77, Total Protein 6.8, Albumin 3.5, Globulin 3.3, Albumin/Globulin Ratio 1.1 Physical Exam Const alert Constitutional Narrative: Appears older than stated age. Afebrile. Tearful at times. Resp normal respiratory effort, no retractions, no use of accessory muscles and clear to auscultation bilaterally Cardio regular rate, regular rhythm, S1 normal heart sound and S2 normal heart sound GI normal to inspection, nondistended, normoactive bowel sounds, soft to palpation, non-tender and non-distended Extremity normal to inspection Skin no rashes or lesions noted Assessment & Plan Assessment/Plan (1) Alcohol abuse: PLAN: 1. Alcohol abuse Patient requesting countless emergency room physician, treatment for alcohol withdrawal. She did receive the phenobarbital in the emergency room but I am not going to continue that at this point. Patient was just discharged on the and I am unclear how much she has been drinking and when she started drinking again. I would like to hold that medication anyways I do to get a coherent history from her because of her current intoxication. Continue with thiamine and folate Addiction medicine to further facilitate additional therapy and recommendations after discharge Patient smells of marijuana but she denies it but her drug screen was positive for barbiturates and as well as methamphetamines. Given this patient's frequent hospitalizations and quick relapses I am very concerned that this patient again will fail maintaining sobriety 02/24: Today, the patient states that she wishes to follow-up with the residential program. Is felt that the residential program be the best fit for the patient because she never follows up on the outpatient side. Was told by the addiction liaison that they would not have a bed available until the . Told the addiction liaison that we would keep the patient here in the hospital until then unless there became a catastrophic search of patients in the interim where we would need ready beds available. Outside of something of that nature patient will remain here until then. Since patient is having symptoms we will initiate phenobarbital taper as well as Vistaril. 2. Starvation ketosis Secondary to alcohol Resolved with IV fluids 3. Hypokalemia Replace 3. VTE prophylaxis Moderate risk Enoxaparin
[2021-02-24] MEDS: hydrOXYzine PAM 25 MG Capsule 50 MG PO ×2 (14:48→21:08)
--- NOTE | 2021-02-24 18:32 | NURSING ---
Charting by Saji WADE reviewed by this RN
[2021-02-24] MEDS: Budesonide Respules 0.5 MG/2 ML AMPUL.NEB. INHALATION (19:49)
[2021-02-24] MEDS: Gabapentin 300 MG Capsule PO (21:08)
[2021-02-25] VITALS (8 sets, daily range): BP systolic 93–132; BP diastolic 54–99; PULSE 84–107; RESP 14–20; TEMP 36.4–37.3; O2SAT 96–100
[2021-02-25] MEDS: Phenobarbital 32.4 MG Tablet PO ×7 (00:02→23:57)
[2021-02-25] MEDS: traZODone 50 MG Tablet 25 MG PO (00:02)
[2021-02-25] MEDS: Sucralfate 1 GM Tablet PO ×4 (06:10→21:22)
[2021-02-25] MEDS: Dicyclomine 10 MG Capsule PO ×4 (06:10→17:27)
[2021-02-25] MEDS: Gabapentin 300 MG Capsule PO (08:05)
[2021-02-25] MEDS: Ibuprofen 600 MG Tablet PO ×2 (08:05→21:31)
[2021-02-25] MEDS: Folic Acid 1 MG Tablet PO (08:06)
[2021-02-25] MEDS: Thiamine Hydrochloride 100 MG Tablet PO (08:06)
[2021-02-25] MEDS: Baclofen 10 MG Tablet PO (08:07)
[2021-02-25] MEDS: DULoxetine Hcl 20 MG Capsule PO (08:08)
[2021-02-25] MEDS: Pantoprazole Sodium 40 MG Tablet PO ×2 (08:09→21:23)
[2021-02-25] MEDS: amLODIPine 5 MG Tablet PO (08:09)
--- NOTE | 2021-02-25 10:02 | ADDICTION ---
This worker visited PT today to discuss admission to residential, coping skills with in [facility] program and relapse prevention planning.
[2021-02-25] MEDS: Albuterol 2.5 MG/3 ML VIAL.NEB. INHALATION ×2 (11:06→20:01)
[2021-02-25] MEDS: Budesonide Respules 0.5 MG/2 ML AMPUL.NEB. INHALATION ×2 (11:06→20:00)
[2021-02-25] MEDS: COVID-19 VAC,AD26(JANSSEN)/PF 0.5 ML SYRINGE IM (11:15)
[2021-02-25] MEDS: Doxepin Hydrochloride 10 MG Capsule PO (11:52)
[2021-02-25] MEDS: Enoxaparin 40 MG/0.4 ML Syringe SC (11:52)
[2021-02-25] MEDS: hydrOXYzine PAM 25 MG Capsule 50 MG PO ×2 (11:52→21:31)
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
--- NOTE | 2021-02-25 17:18 | PCM.PN.HOSP ---
Subjective Subjective No new events. Tolerating medications. Objective Data Objective Data Vital Signs: Vital Signs Temp Pulse Resp BP Pulse Ox 36.4 C L 101 H 20 H 132/92 H 100 02/25/21 07:57 02/25/21 11:30 02/25/21 11:30 02/25/21 07:57 02/25/21 07:57 Oxygen Delivery Method Room Air Weight: 51.3 kg Body Mass Index (BMI) 19.3 Intake & Output: Intake and Output for Last 24 Hours 02/23/21 02/24/21 02/25/21 23:59 23:59 23:59 Intake Total 2400 / 2400 2260 / 2260 600 / 600 Balance 2400 / 2400 2260 / 2260 600 / 600 Medical Nutrition Assessment Dietitian: Malnutrition Criteria Met Start: 02/23/21 15:29 Freq: Status: Active Protocol: Document 02/23/21 15:52 RMA (Rec: 02/23/21 15:55 RMA [id number]) Nutrition Malnutrition Evidence of Malnutrition Exists Yes Malnutrition (severe): Social/Behavioral/ Environmental Evidenced By Suboptimal Energy Intake ( Severe),Weight Loss (Severe), Physical Changes (Severe) Clinical Problem Chronic Disease or Condition Related Malnutrition Etiology Severe protein-calorie malnutrition in the context of social circumstance/ETOH abuse related to inadequate energy intake and low nutrient density Signs/Symptoms as evidenced by ~21% wt loss x past 4-5 months, ongoing poor PO meeting less than 25-50% of estimated nutrition needs and physical signs of severe muscle and fat wasting in the face, orbitals and clavicle. Status Active Problem Recommendation Dietitian Recommendations/Changes Suggest liberal Regular diet as able to advance PO nutrition. Pt will benefit from oral nutrition supplements--ensure enlive w/ medpass and magic cup w/ meals as diet advanced. May need to consider TF support for energy/protein repletion if pt unable to take adequate PO to meet increased nutrition needs. Monitor for signs and symptoms of refeeding syndrome as diet advances. Lab / Micro Data Result Diagrams: 02/23/21 11:05 02/24/21 04:56 Physical Exam Const alert Constitutional Narrative: up in chair. HEENT Head and Scalp: normocephalic Psych affect normal Assessment & Plan Assessment/Plan (1) Alcohol abuse: PLAN: 1. Alcohol abuse Patient requesting countless emergency room physician, treatment for alcohol withdrawal. She did receive the phenobarbital in the emergency room but I am not going to continue that at this point. Patient was just discharged on the and I am unclear how much she has been drinking and when she started drinking again. I would like to hold that medication anyways I do to get a coherent history from her because of her current intoxication. Continue with thiamine and folate Addiction medicine to further facilitate additional therapy and recommendations after discharge Patient smells of marijuana but she denies it but her drug screen was positive for barbiturates and as well as methamphetamines. Given this patient's frequent hospitalizations and quick relapses I am very concerned that this patient again will fail maintaining sobriety 02/24: Today, the patient states that she wishes to follow-up with the residential program. Is felt that the residential program be the best fit for the patient because she never follows up on the outpatient side. Was told by the addiction liaison that they would not have a bed available until the . Told the addiction liaison that we would keep the patient here in the hospital until then unless there became a catastrophic search of patients in the interim where we would need ready beds available. Outside of something of that nature patient will remain here until then. Since patient is having symptoms we will initiate phenobarbital taper as well as Vistaril. 2. Starvation ketosis Secondary to alcohol Resolved with IV fluids 3. Hypokalemia Replace 4. VTE prophylaxis Moderate risk Enoxaparin 5. Medical maintenance: Discussed with the patient's but the risk benefits of the Covid 19 vaccine. Advised patient get Covid 19 vaccine and we could administer to her while she is in the hospital. She agreed and she received it today. She received the [employer] vaccine. Greater than 25 minutes of which greater than 50% of time was discussed the patient about her alcohol withdrawal, treatment and disposition but also about COVID-19 and the vaccine. Charges/Coding Visit Charges Inpatient E&M: 62181 Subs Hosp L2
--- NOTE | 2021-02-25 17:34 | CHAPLAIN ---
Type of Pastoral Visit ___ Initial Visit _x__ Follow-up Visit ___ On-call Visit ___ General Patient Visit ___ Spiritual Assessment ___ Family Conference ___ Bereavement ___ Rapid Response ___ Code Blue ___ Other (describe below) Pastoral Care Referral From _x__ Patient ___ Family ___ Nurse ___ Physician ___ Soft Sugar Supervisor ___ Section Plotter Operator ___ Other (describe below) Sacrament/Intervention _x__ Active listening ___ Anointing ___ Restoration ___ Bereavement ___ Communion ___ Shavon exploration ___ ___ Life review _x__ Prayer ___ Reconciliation ___ Sacrament of Sick _x__ Supportive presence ___ Wedding ___ Other (describe below) Pastoral Comments patient requested visit; pt is talkative; pt asked about receiving materials and Word Searches, The Daily Bread were given to her; prayer
[2021-02-25] MEDS: Mirtazapine 15 MG Tablet PO (21:22)
[2021-02-25] MEDS: Acetaminophen 500 MG Tablet PO (21:32)
[2021-02-26 03:18] VITALS: BP 100/67; PULSE 88; RESP 16; TEMP 36.8; O2SAT 99
[2021-02-26] MEDS: Phenobarbital 32.4 MG Tablet PO ×5 (03:23→20:50)
[2021-02-26] MEDS: Dicyclomine 10 MG Capsule PO ×4 (06:00→20:49)
[2021-02-26] MEDS: Sucralfate 1 GM Tablet PO ×4 (06:00→20:49)
[2021-02-26 07:04] VITALS: PULSE 101; RESP 20
[2021-02-26] MEDS: Budesonide Respules 0.5 MG/2 ML AMPUL.NEB. INHALATION ×2 (07:04→20:10)
[2021-02-26] MEDS: Albuterol 2.5 MG/3 ML VIAL.NEB. INHALATION ×3 (07:04→20:10)
[2021-02-26] MEDS: Thiamine Hydrochloride 100 MG Tablet PO (09:16)
[2021-02-26] MEDS: Folic Acid 1 MG Tablet PO (09:16)
[2021-02-26] MEDS: amLODIPine 5 MG Tablet PO (09:17)
[2021-02-26] MEDS: Enoxaparin 40 MG/0.4 ML Syringe SC (09:17)
[2021-02-26] MEDS: Pantoprazole Sodium 40 MG Tablet PO ×2 (09:17→20:50)
[2021-02-26] MEDS: DULoxetine Hcl 20 MG Capsule PO (09:17)
[2021-02-26] MEDS: hydrOXYzine PAM 25 MG Capsule 50 MG PO ×3 (09:36→20:50)
[2021-02-26] MEDS: Doxepin Hydrochloride 10 MG Capsule PO (09:36)
[2021-02-26] MEDS: Gabapentin 300 MG Capsule PO (09:36)
[2021-02-26] MEDS: traZODone 50 MG Tablet 25 MG PO ×2 (09:36→20:49)
[2021-02-26] MEDS: Ondansetron 8 MG Tablet PO (09:36)
--- NOTE | 2021-02-26 11:19 | PCM.PN.HOSP ---
Subjective Subjective No new events. Complains of being bored. Tired yesterday and slept well last night. Objective Data Objective Data Vital Signs: Vital Signs Temp Pulse Resp BP Pulse Ox 36.8 C 101 H 20 H 100/67 99 02/26/21 03:18 02/26/21 07:04 02/26/21 07:04 02/26/21 03:18 02/26/21 03:18 Oxygen Delivery Method Room Air Weight: 51.3 kg Body Mass Index (BMI) 19.3 Intake & Output: Intake and Output for Last 24 Hours 02/24/21 02/25/21 02/26/21 23:59 23:59 23:59 Intake Total 2260 / 2260 1260 / 1260 Balance 2260 / 2260 1260 / 1260 Medical Nutrition Assessment Dietitian: Malnutrition Criteria Met Start: 02/23/21 15:29 Freq: Status: Active Protocol: Document 02/23/21 15:52 RMA (Rec: 02/23/21 15:55 RMA [id number]) Nutrition Malnutrition Evidence of Malnutrition Exists Yes Malnutrition (severe): Social/Behavioral/ Environmental Evidenced By Suboptimal Energy Intake ( Severe),Weight Loss (Severe), Physical Changes (Severe) Clinical Problem Chronic Disease or Condition Related Malnutrition Etiology Severe protein-calorie malnutrition in the context of social circumstance/ETOH abuse related to inadequate energy intake and low nutrient density Signs/Symptoms as evidenced by ~21% wt loss x past 4-5 months, ongoing poor PO meeting less than 25-50% of estimated nutrition needs and physical signs of severe muscle and fat wasting in the face, orbitals and clavicle. Status Active Problem Recommendation Dietitian Recommendations/Changes Suggest liberal Regular diet as able to advance PO nutrition. Pt will benefit from oral nutrition supplements--ensure enlive w/ medpass and magic cup w/ meals as diet advanced. May need to consider TF support for energy/protein repletion if pt unable to take adequate PO to meet increased nutrition needs. Monitor for signs and symptoms of refeeding syndrome as diet advances. Lab / Micro Data Result Diagrams: 02/23/21 11:05 02/24/21 04:56 Physical Exam Const alert and no apparent distress Neuro Sensorium / Orientation: awake and alert Psych affect normal Assessment & Plan Assessment/Plan (1) Alcohol abuse: PLAN: 1. Alcohol abuse Patient requesting countless emergency room physician, treatment for alcohol withdrawal. She did receive the phenobarbital in the emergency room but I am not going to continue that at this point. Patient was just discharged on the and I am unclear how much she has been drinking and when she started drinking again. I would like to hold that medication anyways I do to get a coherent history from her because of her current intoxication. Continue with thiamine and folate Addiction medicine to further facilitate additional therapy and recommendations after discharge Patient smells of marijuana but she denies it but her drug screen was positive for barbiturates and as well as methamphetamines. Given this patient's frequent hospitalizations and quick relapses I am very concerned that this patient again will fail maintaining sobriety 02/24: Today, the patient states that she wishes to follow-up with the residential program. Is felt that the residential program be the best fit for the patient because she never follows up on the outpatient side. Was told by the addiction liaison that they would not have a bed available until the . Told the addiction liaison that we would keep the patient here in the hospital until then unless there became a catastrophic search of patients in the interim where we would need ready beds available. Outside of something of that nature patient will remain here until then. Since patient is having symptoms we will initiate phenobarbital taper as well as Vistaril. 2. Starvation ketosis Secondary to alcohol Resolved with IV fluids 3. Hypokalemia Replace 4. VTE prophylaxis Moderate risk Enoxaparin 5. Medical maintenance: Pt received COVID-19 vaccine 02/25/2021
[2021-02-26 13:15] VITALS: PULSE 102; RESP 20
[2021-02-26 15:18] VITALS: BP 128/77; PULSE 102; RESP 18; TEMP 37.3; O2SAT 98
[2021-02-26 20:10] VITALS: RESP 18
[2021-02-26 20:34] VITALS: BP 140/83; PULSE 112; RESP 18; TEMP 38; O2SAT 99
[2021-02-26] MEDS: Acetaminophen 500 MG Tablet PO (20:50)
[2021-02-27] VITALS (7 sets, daily range): BP systolic 100–112; BP diastolic 66–71; PULSE 83–98; RESP 16–18; TEMP 36.6–36.9; O2SAT 93–100
[2021-02-27] MEDS: Phenobarbital 32.4 MG Tablet PO ×4 (02:29→21:34)
[2021-02-27] MEDS: Sucralfate 1 GM Tablet PO ×4 (06:15→21:34)
[2021-02-27] MEDS: Dicyclomine 10 MG Capsule PO ×4 (06:15→21:34)
[2021-02-27] MEDS: Loperamide 2 MG Capsule PO (06:18)
[2021-02-27] MEDS: Budesonide Respules 0.5 MG/2 ML AMPUL.NEB. INHALATION ×2 (07:10→19:34)
[2021-02-27] MEDS: Albuterol 2.5 MG/3 ML VIAL.NEB. INHALATION ×3 (07:10→19:34)
[2021-02-27] MEDS: DULoxetine Hcl 20 MG Capsule PO (08:53)
[2021-02-27] MEDS: Folic Acid 1 MG Tablet PO (08:53)
[2021-02-27] MEDS: Enoxaparin 40 MG/0.4 ML Syringe SC (08:55)
[2021-02-27] MEDS: Pantoprazole Sodium 40 MG Tablet PO ×2 (08:55→21:34)
[2021-02-27] MEDS: amLODIPine 5 MG Tablet PO (08:56)
[2021-02-27] MEDS: Thiamine Hydrochloride 100 MG Tablet PO (08:57)
[2021-02-27] MEDS: Ibuprofen 600 MG Tablet PO ×2 (09:04→21:35)
[2021-02-27] MEDS: traZODone 50 MG Tablet 25 MG PO ×2 (09:04→21:35)
[2021-02-27] MEDS: hydrOXYzine PAM 25 MG Capsule 50 MG PO ×3 (09:09→21:35)
--- NOTE | 2021-02-27 12:00 | PN.HOSP_ITS ---
Subjective Subjective Had some low-grade temperatures last night. Feels tired overall. Since given the COVID-19 vaccine. Anxious about going to the residential program on the . Objective Data Objective Data Vital Signs: Vital Signs Temp Pulse Resp BP Pulse Ox 36.6 C 90 16 105/69 100 02/27/21 08:35 02/27/21 08:35 02/27/21 08:35 02/27/21 08:35 02/27/21 08:35 Oxygen Delivery Method Room Air Weight: 51.3 kg Body Mass Index (BMI) 19.3 Intake & Output: Intake and Output for Last 24 Hours 02/25/21 02/26/21 02/27/21 23:59 23:59 23:59 Intake Total 1260 / 1260 1240 / 1240 360 / 360 Balance 1260 / 1260 1240 / 1240 360 / 360 Medical Nutrition Assessment Dietitian: Malnutrition Criteria Met Start: 02/23/21 15:29 Freq: Status: Active Protocol: Document 02/23/21 15:52 RMA (Rec: 02/23/21 15:55 RMA [id number]) Nutrition Malnutrition Evidence of Malnutrition Exists Yes Malnutrition (severe): Social/Behavioral/ Environmental Evidenced By Suboptimal Energy Intake ( Severe),Weight Loss (Severe), Physical Changes (Severe) Clinical Problem Chronic Disease or Condition Related Malnutrition Etiology Severe protein-calorie malnutrition in the context of social circumstance/ETOH abuse related to inadequate energy intake and low nutrient density Signs/Symptoms as evidenced by ~21% wt loss x past 4-5 months, ongoing poor PO meeting less than 25-50% of estimated nutrition needs and physical signs of severe muscle and fat wasting in the face, orbitals and clavicle. Status Active Problem Recommendation Dietitian Recommendations/Changes Suggest liberal Regular diet as able to advance PO nutrition. Pt will benefit from oral nutrition supplements--ensure enlive w/ medpass and magic cup w/ meals as diet advanced. May need to consider TF support for energy/protein repletion if pt unable to take adequate PO to meet increased nutrition needs. Monitor for signs and symptoms of refeeding syndrome as diet advances. Lab / Micro Data Result Diagrams: 02/23/21 11:05 02/24/21 04:56 Physical Exam Const alert Constitutional Narrative: Up in chair Neuro Sensorium / Orientation: awake and alert Psych Mood & Affect: anxious Assessment & Plan Assessment/Plan (1) Alcohol abuse: PLAN: 1. Alcohol abuse Patient requesting countless emergency room physician, treatment for alcohol withdrawal. She did receive the phenobarbital in the emergency room but I am not going to continue that at this point. Patient was just discharged on the and I am unclear how much she has been drinking and when she started drinking again. I would like to hold that medication anyways I do to get a coherent history from her because of her current intoxication. Continue with thiamine and folate Addiction medicine to further facilitate additional therapy and recommendations after discharge Patient smells of marijuana but she denies it but her drug screen was positive for barbiturates and as well as methamphetamines. Given this patient's frequent hospitalizations and quick relapses I am very concerned that this patient again will fail maintaining sobriety 02/24: Today, the patient states that she wishes to follow-up with the residential program. Is felt that the residential program be the best fit for the patient because she never follows up on the outpatient side. Was told by [facility] addiction liaison that they would not have a bed available until the . Told the addiction liaison that we would keep the patient here in the hospital until then unless there became a catastrophic search of patients in the interim where we would need ready beds available. Outside of something of that nature patient will remain here until then. Since patient is having symptoms we will initiate phenobarbital taper as well as Vistaril. 2. Starvation ketosis Secondary to alcohol Resolved with IV fluids 3. Hypokalemia Replace 4. VTE prophylaxis Moderate risk Enoxaparin 5. Medical maintenance: Pt received COVID-19 vaccine 02/25/2021. Patient today endorsing some low-grade temperatures and fatigue. Patient was reassured that the risk of the vaccine of COVID-19 outweigh the risks with COVID-19 and unvaccinated individual. 6. Disposition: Plan is for residential program with 180 on the Present 25 minutes which greater than 50% of the time was discussed with the patient, discussing about disposition as well as the COVID-19 vaccine that she received. Charges/Coding Visit Charges Inpatient E&M: 96577 Subs Hosp L2
[2021-02-27] MEDS: Gabapentin 300 MG Capsule PO (14:17)
[2021-02-27] MEDS: Baclofen 10 MG Tablet PO (22:52)
[2021-02-27] MEDS: Mirtazapine 15 MG Tablet PO (22:52)
[2021-02-28] VITALS (7 sets, daily range): BP systolic 102–137; BP diastolic 54–79; PULSE 84–97; RESP 16; TEMP 36.6–36.7; O2SAT 94–98
[2021-02-28] MEDS: Sucralfate 1 GM Tablet PO ×4 (06:02→21:50)
[2021-02-28] MEDS: Dicyclomine 10 MG Capsule PO ×4 (06:02→21:50)
[2021-02-28] MEDS: hydrOXYzine PAM 25 MG Capsule 50 MG PO ×3 (06:09→20:01)
[2021-02-28] MEDS: Budesonide Respules 0.5 MG/2 ML AMPUL.NEB. INHALATION (07:03)
[2021-02-28] MEDS: Albuterol 2.5 MG/3 ML VIAL.NEB. INHALATION ×2 (07:03→13:26)
[2021-02-28] MEDS: Enoxaparin 40 MG/0.4 ML Syringe SC (08:48)
[2021-02-28] MEDS: traZODone 50 MG Tablet 25 MG PO ×3 (08:49→21:49)
[2021-02-28] MEDS: Ibuprofen 600 MG Tablet PO (08:49)
[2021-02-28] MEDS: Folic Acid 1 MG Tablet PO (08:50)
[2021-02-28] MEDS: Doxepin Hydrochloride 10 MG Capsule PO (08:50)
[2021-02-28] MEDS: Thiamine Hydrochloride 100 MG Tablet PO (08:50)
[2021-02-28] MEDS: Pantoprazole Sodium 40 MG Tablet PO ×2 (08:50→21:49)
[2021-02-28] MEDS: amLODIPine 5 MG Tablet PO (08:50)
[2021-02-28] MEDS: DULoxetine Hcl 20 MG Capsule PO (08:50)
[2021-02-28] MEDS: Baclofen 10 MG Tablet PO ×2 (08:50→20:02)
[2021-02-28] MEDS: Phenobarbital 32.4 MG Tablet PO ×2 (08:51→14:30)
--- NOTE | 2021-02-28 09:15 | NURSING ---
Dr. Conley instructed this RN to return patient's cell phone to her at this time. Pt currently awaiting a room for placement. Spoke to patient concerning physcian's request and parameters related to cell phone use-2 cell phones and 2 chargers given to patient at this time and R[facility] bins locked back up following by this RN.
--- NOTE | 2021-02-28 13:54 | PN.HOSP_ITS ---
Subjective Subjective Still anxious. Would like to talk her son. complains of abdominal pain. Objective Data Objective Data Vital Signs: Vital Signs Temp Pulse Resp BP Pulse Ox 36.7 C 93 16 116/70 97 02/28/21 08:36 02/28/21 13:26 02/28/21 13:26 02/28/21 08:36 02/28/21 08:36 Oxygen Delivery Method Room Air Weight: 51.3 kg Body Mass Index (BMI) 19.3 Intake & Output: Intake and Output for Last 24 Hours 02/26/21 02/27/21 02/28/21 23:59 23:59 23:59 Intake Total 1240 / 1240 720 / 1120 700 / 700 Balance 1240 / 1240 720 / 1120 700 / 700 Medical Nutrition Assessment Dietitian: Malnutrition Criteria Met Start: 02/23/21 15:29 Freq: Status: Active Protocol: Document 02/23/21 15:52 RMA (Rec: 02/23/21 15:55 RMA [id number]) Nutrition Malnutrition Evidence of Malnutrition Exists Yes Malnutrition (severe): Social/Behavioral/ Environmental Evidenced By Suboptimal Energy Intake ( Severe),Weight Loss (Severe), Physical Changes (Severe) Clinical Problem Chronic Disease or Condition Related Malnutrition Etiology Severe protein-calorie malnutrition in the context of social circumstance/ETOH abuse related to inadequate energy intake and low nutrient density Signs/Symptoms as evidenced by ~21% wt loss x past 4-5 months, ongoing poor PO meeting less than 25-50% of estimated nutrition needs and physical signs of severe muscle and fat wasting in the face, orbitals and clavicle. Status Active Problem Recommendation Dietitian Recommendations/Changes Suggest liberal Regular diet as able to advance PO nutrition. Pt will benefit from oral nutrition supplements--ensure enlive w/ medpass and magic cup w/ meals as diet advanced. May need to consider TF support for energy/protein repletion if pt unable to take adequate PO to meet increased nutrition needs. Monitor for signs and symptoms of refeeding syndrome as diet advances. Lab / Micro Data Result Diagrams: 02/23/21 11:05 02/24/21 04:56 Physical Exam Const alert Constitutional Narrative: tearful Resp normal respiratory effort, no retractions, no use of accessory muscles and clear to auscultation bilaterally GI normal to inspection, nondistended, normoactive bowel sounds, soft to palpation, non-tender and non-distended Extremity normal to inspection Assessment & Plan Assessment/Plan (1) Alcohol abuse: PLAN: 1. Alcohol abuse Patient requesting countless emergency room physician, treatment for alcohol withdrawal. She did receive the phenobarbital in the emergency room but I am not going to continue that at this point. Patient was just discharged on the and I am unclear how much she has been drinking and when she started drin ravi again. I would like to hold that medication anyways I do to get a coherent history from her because of her current intoxication. Continue with thiamine and folate Addiction medicine to further facilitate additional therapy and recommendations after discharge Patient smells of marijuana but she denies it but her drug screen was positive for barbiturates and as well as methamphetamines. Given this patient's frequent hospitalizations and quick relapses I am very concerned that this patient again will fail maintaining sobriety 02/24: Today, the patient states that she wishes to follow-up with the residential program. Is felt that the residential program be the best fit for the patient because she never follows up on the outpatient side. Was told by the addiction liaison that they would not have a bed available until the . Told the addiction liaison that we would keep the patient here in the hospital until then unless there became a catastrophic search of patients in the interim where we would need ready beds available. Outside of something of that nature patient will remain here until then. Since patient is having symptoms we will initiate phenobarbital taper as well as Vistaril. 2. Starvation ketosis Secondary to alcohol Resolved with IV fluids 3. Hypokalemia Replace 4. VTE prophylaxis Moderate risk Enoxaparin 5. Medical maintenance: Pt received COVID-19 vaccine 02/25/2021. Patient today endorsing some low-grade temperatures and fatigue. Patient was reassured that the risk of the vaccine of COVID-19 outweigh the risks with COVID-19 and unvaccinated individual. 6. Disposition: Plan is for residential program with 180 on the Charges/Coding Visit Charges Inpatient E&M: 64270 Subs Hosp L2
[2021-02-28] MEDS: Acetaminophen 500 MG Tablet PO (20:02)
[2021-02-28] MEDS: Mirtazapine 15 MG Tablet PO (21:50)
[2021-02-28] MEDS: Senna/Docusate Sodium 1 Tablet 2 TABLET PO (22:51)
[2021-03-01 03:08] VITALS: BP 95/53; PULSE 82; RESP 16; TEMP 36.9; O2SAT 96
[2021-03-01] MEDS: Dicyclomine 10 MG Capsule PO (06:15)
[2021-03-01] MEDS: Sucralfate 1 GM Tablet PO (06:15)
[2021-03-01] MEDS: Budesonide Respules 0.5 MG/2 ML AMPUL.NEB. INHALATION (07:06)
[2021-03-01] MEDS: Albuterol 2.5 MG/3 ML VIAL.NEB. INHALATION (07:06)
[2021-03-01 07:07] VITALS: PULSE 102; RESP 20
[2021-03-01] MEDS: hydrOXYzine PAM 25 MG Capsule 50 MG PO (08:09)
[2021-03-01] MEDS: Thiamine Hydrochloride 100 MG Tablet PO (08:10)
[2021-03-01] MEDS: Folic Acid 1 MG Tablet PO (08:10)
--- NOTE | 2021-03-01 09:22 | DS.PCM_ITS ---
Providers Date of Admission: 02/23/21 Primary Care Physician: Dr. Kellie Delarosa DO Reason For Visit: ALCOHOL DEPENDENCE Diagnosis Discharge Diagnosis (1) Alcohol abuse: Status: Acute Code(s): F10.10 - Alcohol abuse, uncomplicated Medications at Discharge Home Medications loratadine 10 mg tablet 10 mg PO DAILY PRN 04/04/18 fluticasone furoate-vilanterol 1 puff INHALATION DAILY 07/16/18 albuterol sulfate 2 puff IH Q4H PRN 11/16/18 mirtazapine 15 mg PO QHS 11/16/18 dicyclomine 10 mg PO ACHS 10/17/19 hydroxyzine HCl 50 mg PO BID 10/17/19 pantoprazole 40 mg PO BID 10/17/19 amlodipine 5 mg PO DAILY 07/28/20 duloxetine 20 mg PO DAILY 07/28/20 sucralfate 1 g PO ACHS 01/28/21 baclofen 5 - 10 mg PO TID PRN PRN 02/23/21 doxepin 10 mg PO TID PRN PRN 02/23/21 gabapentin 100 mg PO DAILY 02/23/21 gabapentin 200 mg PO QHS 02/23/21 tramadol 50 mg PO BID PRN PRN 02/23/21 trazodone 25 - 50 mg PO TID PRN PRN 02/23/21 folic acid 1 mg PO DAILY@0800 #0 tab 03/01/21 food supplemt, lactose-reduced [Ensure Enlive] 120 ml PO 4X/DAY #0 ml 03/01/21 thiamine HCl (vitamin B1) [Vitamin B-1] 100 mg PO DAILYCM #0 tab 03/01/21 Hospital Course Summary of Care Provided Minutes Spent on Discharge: 35 Hospital Course: Patient is a 60-year-old lady with history of chronic alcohol dependence admitted with acute alcohol withdrawal 1. Acute alcohol withdrawal -managed with phenobarb taper. Consult was placed to case management patient discharged to an inpatient facility to continue with rehab 2. Starvation ketosis ?Secondary to chronic alcohol use managed with IV fluids 3. Hypokalemia ?Corrected per protocol 4. COPD ?Did continue patient [place] dilator treatment from home 5. GERD ?On PPI did continue 6. Hypertension - Blood pressure controlled, home medications continued with dose adjustment as needed Physical Exam Narrative GENERAL: cooperative HEENT: Atraumatic; EYES; Anicteric, Normal Conjunctiva NECK; supple, normal thyroid, RESPIRATORY: Diminished to auscultation CARDIOVASCULAR: Regular S1 S2, GI: soft, normoactive bowel sounds, : No Renal angle tenderness; EXTREMITIES: No edema, no clubbing, PSYCH; Flat affect Medical Records Data Medical Nutrition Assessment Dietitian: Malnutrition Criteria Met Start: 02/23/21 15:29 Freq: Status: Active Protocol: Document 02/23/21 15:52 RMA (Rec: 02/23/21 15:55 RMA [id number]) Nutrition Malnutrition Evidence of Malnutrition Exists Yes Malnutrition (severe): Social/Behavioral/ Environmental Evidenced By Suboptimal Energy Intake ( Severe),Weight Loss (Severe), Physical Changes (Severe) Clinical Problem Chronic Disease or Condition Related Malnutrition Etiology Severe protein-calorie malnutrition in the context of social circumstance/ETOH abuse related to inadequate energy intake and low nutrient density Signs/Symptoms as evidenced by ~21% wt loss x past 4-5 months, ongoing poor PO meeting less than 25-50% of estimated nutrition needs and physical signs of severe muscle and fat wasting in the face, orbitals and clavicle. Status Active Problem Recommendation Dietitian Recommendations/Changes Suggest liberal Regular diet as able to advance PO nutrition. Pt will benefit from oral nutrition supplements--ensure enlive w/ medpass and magic cup w/ meals as diet advanced. May need to consider TF support for energy/protein repletion if pt unable to take adequate PO to meet increased nutrition needs. Monitor for signs and symptoms of refeeding syndrome as diet advances. Weight / BMI Weight Weight: 51.3 kg Body Mass Index (BMI) 19.3 ABG / Lab / Microbiology Data Result Diagrams: 02/23/21 11:05 02/24/21 04:56 D/C Instructions Discharge Diet: No restrictions Discharge Activity: Return to Normal Activity Call your doctor if you observe: Fever of 101 or Higher, Shortness of breath, Fainting spells and Chest pain Meaningful Use Info Meaningful Use Diagnoses (Choose all that apply): None applicable Discharge Plan Admission Admit Date/Time: 02/23/21 12:52 Attending Provider: Adan Kendall Primary Care Provider: Kellie Delarosa Instructions Patient Instructions: ED Chest Pain, Noncardiac Discharge Orders/Prescriptions Prescriptions: New thiamine HCl (vitamin B1) [Vitamin B-1] 100 mg Tablet 100 mg PO DAILYCM Qty: 0 RF: 0 folic acid 1 mg Tablet 1 mg PO DAILY@0800 Qty: 0 RF: 0 Ensure Enlive 0.08 gram-1.5 kcal/mL Liquid 120 ml PO 4X/DAY Qty: 0 RF: 0 Continued loratadine [Claritin] 10 mg tablet 10 mg PO DAILY PRN (Reason: Allergies) RF: 0 fluticasone furoate-vilanterol 1 EACH blister with device 1 puff inhalation DAILY RF: 0 mirtazapine 15 tablet 15 mg PO QHS RF: 0 albuterol sulfate 18 GM HFA aerosol inhaler 2 puff IH Q4H PRN (Reason: Sob &/Or Wheezing) RF: 0 hydroxyzine HCl 50 MG tablet 50 mg PO BID RF: 0 dicyclomine 10 MG capsule 10 mg PO ACHS RF: 0 pantoprazole 40 MG tablet 40 mg PO BID RF: 0 amlodipine 10 MG tablet 5 mg PO DAILY RF: 0 duloxetine 20 MG capsule,delayed release(DR/EC) 20 mg PO DAILY RF: 0 sucralfate 1 gram tablet 1 g PO ACHS RF: 0 trazodone 50 mg Tablet 25 - 50 mg PO TID PRN PRN (Reason: Insomnia) RF: 0 doxepin 10 mg Capsule 10 mg PO TID PRN PRN (Reason: Anxiety) RF: 0 tramadol 50 mg Tablet 50 mg PO BID PRN PRN (Reason: Pain) RF: 0 baclofen 10 mg Tablet 5 - 10 mg PO TID PRN PRN (Reason: Spasms) RF: 0 gabapentin 100 mg Capsule 200 mg PO QHS RF: 0 gabapentin 100 mg Capsule 100 mg PO DAILY RF: 0 Referrals / Follow Up: Kellie Delarosa DO [Primary Care Provider] - Disposition Disposition (needs filled in before D/C Order can be placed): Inpatient Rehab Unit/Facility Charges/Coding Visit Charges Inpatient E&M: 98698 Disch Hosp
[2021-03-01 09:26] VITALS: BP 123/80; PULSE 107; RESP 18; TEMP 36.9; O2SAT 97
[2021-03-01] MEDS: DULoxetine Hcl 20 MG Capsule PO (09:34)
[2021-03-01] MEDS: amLODIPine 5 MG Tablet PO (09:35)
[2021-03-01] MEDS: Pantoprazole Sodium 40 MG Tablet PO (09:36)
[2021-03-01] MEDS: Ondansetron 8 MG Tablet PO (09:42)
== END 2021-03-01 10:34 | DRG 775 ==
LOC: ED 12:33 → PCU 13:32
PROVIDERS: Emergency Provider Emergency Medicine; PCP Family Medicine; Visit Provider Internal Medicine
DX: F10.229 Alcohol dependence with intoxication, unspecified (principal); E43 Unspecified severe protein-calorie malnutrition; F10.239 Alcohol dependence with withdrawal, unspecified; F31.9 Bipolar disorder, unspecified; E88.89 Other specified metabolic disorders; J44.9 Chronic obstructive pulmonary disease, unspecified; F41.9 Anxiety disorder, unspecified; K21.9 Gastro-esophageal reflux disease without esophagitis; F17.210 Nicotine dependence, cigarettes, uncomplicated; Y90.8 Blood alcohol level of 240 mg/100 ml or more; Z23 Encounter for immunization; Y90.7 Blood alcohol level of 200-239 mg/100 ml; Z68.1 Body mass index [BMI] 19.9 or less, adult; E87.6 Hypokalemia; I10 Essential (primary) hypertension; Z79.899 Other long term (current) drug therapy; Z79.51 Long term (current) use of inhaled steroids
CPT/HCPCS: 0031A; 36415; 80053; 80307; 81001; 82077; 83690; 85025; 91303; 94640; 99251; 99282; 99285; 99406; J7030; A4216; G0463

== ENCOUNTER 2021-03-26 12:16 | Observation (INO) | payer MEDICAID, SELFPAY ==
[2021-03-26] VITALS (9 sets, daily range): BP systolic 109–133; BP diastolic 72–87; PULSE 92–127; RESP 14–20; TEMP 36.2–37.2; O2SAT 83–98; BMI 18.8; BMI 17.6
--- NOTE | 2021-03-26 12:39 | EKG12_ITS ---
Test Reason : Blood Pressure : / mmHG Vent. Rate : 105 BPM Atrial Rate : 105 BPM P-R Int : 154 ms QRS Dur : 074 ms QT Int : 336 ms P-R-T Axes : 082 089 079 degrees QTc Int : 444 ms Sinus tachycardia Right atrial enlargement Septal infarct (cited on or before 13-FEB-2021) Abnormal ECG Confirmed by LUIZ NARVAEZ, LAYLA ([id number]), society editor KANDIS URIAS ([id number]) on 03/30/2021 1:37:28 PM Referred By: ERIC Confirmed By:LAYLA DEE MD
--- NOTE | 2021-03-26 12:40 | EDS_ITS ---
HPI History of Present Illness Chief Complaint: Shortness of Breath Informant: patient Onset/Context/Timing Onset: Weeks (2 weeks) Context: Gradual Onset Current Severity: Mild Maximum Severity: Moderate Narrative Narrative: Patient presents with 2-week history of cough, shortness of breath, intermittent chest pains. She believes she had fever a couple times. She is coughing up thick yellow sputum. Patient states has been using her inhalers more than normal. PFSH PFS Medical History Abnormal mammogram Alcohol abuse Alcohol abuse Anxiety Bipolar 1 disorder COPD (chronic obstructive pulmonary disease) GERD (gastroesophageal reflux disease) Hepatotoxicity, secondary to ETOH Insomnia Malnutrition Smoker Home Medications loratadine 10 mg tablet 10 mg PO DAILY PRN 04/04/18 [History Last Taken 12/31/20 20:30] fluticasone furoate-vilanterol 1 puff INHALATION DAILY 07/16/18 [History Last Taken 01/27/21] albuterol sulfate 2 puff IH Q4H PRN 11/16/18 [History Last Taken 01/27/21] mirtazapine 15 mg PO QHS 11/16/18 [History Last Taken 01/27/21] dicyclomine 10 mg PO ACHS 10/17/19 [History Last Taken 01/27/21] hydroxyzine HCl 50 mg PO BID 10/17/19 [History Last Taken 01/27/21] pantoprazole 40 mg PO BID 10/17/19 [History Last Taken 01/26/21] amlodipine 5 mg PO DAILY 07/28/20 [History Last Taken 01/27/21] duloxetine 20 mg PO DAILY 07/28/20 [History Last Taken 01/27/21] sucralfate 1 g PO ACHS 01/28/21 [History Last Taken 01/27/21] baclofen 5 - 10 mg PO TID PRN PRN 02/23/21 [History Last Taken Unknown] doxepin 10 mg PO TID PRN PRN 02/23/21 [History Last Taken Unknown] gabapentin 100 mg PO DAILY 02/23/21 [History Last Taken Unknown] gabapentin 200 mg PO QHS 02/23/21 [History Last Taken Unknown] tramadol 50 mg PO BID PRN PRN 02/23/21 [History Last Taken Unknown] trazodone 25 - 50 mg PO TID PRN PRN 02/23/21 [History Last Taken Unknown] folic acid 1 mg PO DAILY@0800 #0 tab 03/01/21 [Rx Last Taken Unknown] food supplemt, lactose-reduced [Ensure Enlive] 120 ml PO 4X/DAY #0 ml 03/01/21 [Rx Last Taken Unknown] thiamine HCl (vitamin B1) [Vitamin B-1] 100 mg PO DAILYCM #0 tab 03/01/21 [Rx Last Taken Unknown] Allergy/AdvReac Type Severity Reaction Status Date / Time Penicillins Allergy SOB, cold Verified 03/26/21 12:18 sweats Family History Mother Hypertension Thyroid disorder CVA (cerebral vascular accident) Sister Heart disease Surgical History History of History of hysterectomy Social History household members: friend(s) Smoking Status: Current every day smoker tobacco type: cigarettes alcohol intake: current substance use type: does not use ROS ROS ED Constitutional Constitutional ED: Reports fever(s) and subjective; Denies chills Eyes Eyes: Denies change in vision ENT ENT ED: Denies sore throat Cardiovascular Cardiovascular: Reports chest pain Respiratory/Chest Respiratory/Chest: Reports cough, dyspnea and sputum Gastrointestinal Gastrointestinal: Denies abdominal pain, diarrhea, nausea or vomiting Genitourinary Genitourinary ED: Denies dysuria Musculoskeletal Musculoskeletal: Reports back pain Integumentary Denies rash Neurologic Neurologic: Denies headache(s) or weakness Allergic/Immunologic Allergic/Immunologic ED: Denies urticaria EXAM Physical Exam Const Vital Signs: 03/26/21 12:18 03/26/21 13:06 03/26/21 14:20 Temperature 99 F Temperature Source Temporal Pulse Rate 127 H 98 97 Respiratory Rate 14 20 H 17 Respiratory Pattern Normal Blood Pressure 133/77 H Blood Pressure Mean 95 Pulse Ox 98 96 Oxygen Delivery Method Room Air Nasal Cannula Oxygen Flow Rate (L/min) 2 03/26/21 14:56 Temperature Temperature Source Pulse Rate 94 Respiratory Rate 17 Respiratory Pattern Blood Pressure 117/84 H Blood Pressure Mean 95 Pulse Ox 94 Oxygen Delivery Method Nasal Cannula Oxygen Flow Rate (L/min) 2 Positive well nourished and well developed General Appearance ED: well developed HEENT Reports normocephalic and head/scalp atraumatic Eyes PERRL and EOMs intact bilaterally Neck supple Chest Wall inspection of chest normal and palpation of chest normal Resp normal respiratory effort and clear to auscultation bilaterally Cardio regular rate and regular rhythm GI normal to inspection, nondistended, normoactive bowel sounds Palpation: soft Extremity normal to inspection Neuro oriented x3 and no sensory deficits noted Sensorium / Orientation: alert Motor Exam: strength 5/5 throughout Psych mental status grossly normal Skin no rashes or lesions noted MDM MDM MDM Narrative Medical decision making narrative: DuoNeb was ordered. Patient was given a dose of IV Solu-Medrol. Lab work, chest x-ray, EKG obtained. Lab Data Attestation: I reviewed the patient's lab results. Labs: Laboratory Results - last 24 hr 03/26/21 03/26/21 03/26/21 13:00 13:00 13:00 WBC 11.1 H RBC 3.66 L Hgb 11.2 L Hct 34.3 L MCV 93.7 MCH 30.6 MCHC 32.7 RDW Std Deviation 48.7 H RDW Coeff of Rebeca 14.2 Plt Count 345 MPV 9.1 Immature Gran % (Auto) 1.000 H Neut % (Auto) 64.7 Lymph % (Auto) 19.7 [place] % (Auto) 13.2 H Eos % (Auto) 0.9 Baso % (Auto) 0.5 Absolute Neuts (auto) 7.2 Absolute Lymphs (auto) 2.18 Nucleated RBC % 0 D-Dimer Quant (PE/DVT) 0.94 H* Sodium 131 L Potassium 3.6 Chloride 91 L Carbon Dioxide 32.0 Anion Gap 8 BUN 6 L Creatinine 0.82 Estim Creat Clear Calc 58.19 Est GFR (MDRD) Af Amer 91 Est GFR (MDRD) Non-Af 75 BUN/Creatinine Ratio 7.3 L Glucose 107 H Calcium 10.1 Troponin I High Sens 9 Rapid Covid test negative. Radiography Chest X-Ray - ED: 1 View, Read by ED Physician and Chronic Changes Diagnostic Testing: Radiology Impression Chest X-Ray 03/26/21 13:10 IMPRESSION: Hyperinflation. There now is evidence of a mild degree of increased markings along the lateral aspect of the right lung base. Follow-up is recommended. Prominence of the pulmonary arteries bilaterally. Electronically Signed: Marty Cam MD at 13:24 EDT , Service support , Chest CTA 03/26/21 13:35 IMPRESSION: Hyperinflation. No acute abnormality is seen. No evidence of pulmonary embolism. Electronically Signed: Marty Cam MD at 14:20 EDT , Service support , EKG Initial EKG: Attestation: I personally reviewed and interpreted this EKG as follows: Interpretation: Sinus Tachycardia (Sinus tach at 105. No acute ST change.) Treatment and Re-Evaluation Comments:: Respiratory therapy staff advised me that the patient's O2 sat had dropped to 87% on room air. She was placed on 2 L nasal cannula. Lab work is unremarkable. CT scan of the chest was obtained secondary to elevated D-dimer and is negative. This is unremarkable for PE or infiltrate. Patient was taken off of the nasal cannula. She did drop her sats into the low to mid 80s. She is placed back on oxygen and given a dose of doxycycline. She will be admitted for COPD exacerbation. Discharge Plan Triage Chief Complaint: Shortness of Breath Other Complaint: Cold Sx ED Provider: Trinity Oliva Dx/Rx/DC Orders Clinical Impression: COPD (chronic obstructive pulmonary disease) Prescriptions: No Action loratadine [Claritin] 10 mg tablet 10 mg PO DAILY PRN (Reason: Allergies) RF: 0 fluticasone furoate-vilanterol 1 EACH blister with device 1 puff inhalation DAILY RF: 0 mirtazapine 15 tablet 15 mg PO QHS RF: 0 albuterol sulfate 18 GM HFA aerosol inhaler 2 puff IH Q4H PRN (Reason: Sob &/Or Wheezing) RF: 0 hydroxyzine HCl 50 MG tablet 50 mg PO BID RF: 0 dicyclomine 10 MG capsule 10 mg PO ACHS RF: 0 pantoprazole 40 MG tablet 40 mg PO BID RF: 0 amlodipine 10 MG tablet 5 mg PO DAILY RF: 0 duloxetine 20 MG capsule,delayed release(DR/EC) 20 mg PO DAILY RF: 0 sucralfate 1 gram tablet 1 g PO ACHS RF: 0 trazodone 50 mg Tablet 25 - 50 mg PO TID PRN PRN (Reason: Insomnia) RF: 0 doxepin 10 mg Capsule 10 mg PO TID PRN PRN (Reason: Anxiety) RF: 0 tramadol 50 mg Tablet 50 mg PO BID PRN PRN (Reason: Pain) RF: 0 baclofen 10 mg Tablet 5 - 10 mg PO TID PRN PRN (Reason: Spasms) RF: 0 gabapentin 100 mg Capsule 200 mg PO QHS RF: 0 gabapentin 100 mg Capsule 100 mg PO DAILY RF: 0 thiamine HCl (vitamin B1) [Vitamin B-1] 100 mg Tablet 100 mg PO DAILYCM Qty: 0 RF: 0 folic acid 1 mg Tablet 1 mg PO DAILY@0800 Qty: 0 RF: 0 Ensure Enlive 0.08 gram-1.5 kcal/mL Liquid 120 ml PO 4X/DAY Qty: 0 RF: 0 Primary Care Provider: Kellie Delarosa Referrals: Kellie Delarosa DO [Primary Care Provider] - Disposition Disposition: Acute Care [facility]
[2021-03-26] MEDS: MethylPREDNISolone 125 MG/2 ML Vial 100 MG IV (12:53)
[2021-03-26 13:06] LABS: Absolute Lymphocyte Count 2.18 X10^3/uL (0.83-4.51); Absolute Neutrophil Count 7.2 X10^3/uL (2.0-7.7); Basophil# 0.06 X10^3/uL; Basophil% 0.5 % (0-1); Eosinophils% 0.9 % (0-5); Hematocrit 34.3 % (37-47); Hemoglobin 11.2 g/dL (12.0-15.0); Lymphocyte # 2.18 X10^3/ul (0.83-4.51); Lymphocyte % 19.7 % (19-41); Mean Corp Hgb Conc 32.7 g/dL (32-36); Mean Corpuscular Hgb 30.6 pg (27.0-32.0); Mean Corpuscular Volume 93.7 fL (81-99); Mean Platelet Vol. 9.1 fl (6.2-12.0); Monocyte# 1.46 X10^3/uL; Monocyte% 13.2 % (0-10); NRBC Flagged by Analyzer 0 % (0-5); Neutrophil # 7.15 X10^3/uL (2.7-7.7); Neutrophil % 64.7 % (47-70); Platelet Count 345 K/mm3 (150-450); RBC Distribution Width CV 14.2 % (11.6-14.6); RBC Distribution Width SD 48.7 fl (35.1-43.9); Red Blood Count 3.66 M/mm3 (4.2-5.4); White Blood Count 11.1 K/mm3 (4.4-11.0)
[2021-03-26] MEDS: Ipratropium/Albuterol Sulfate 3 ML AMPUL.NEB INHALATION ×2 (13:06→19:00)
--- NOTE | 2021-03-26 13:10 | RAD_ITS ---
STUDY: X-RAY CHEST REASON FOR EXAM: Female, 60 years old. Sob TECHNIQUE: Single AP portable view of the chest. COMPARISON: Comparison is made with prior study dated 12/31/2020. FINDINGS: EKG electrodes are seen. There is hyperinflation of the lungs consistent with chronic obstructive lung disease (COPD). There now is evidence of a mild degree of increased markings at right lung base laterally. There is no demonstrated pleural abnormality. Normal size heart. Normal mediastinum and liam. There is prominence of the pulmonary hilar arteries without peripheral pulmonary vascular congestion, suggesting pulmonary hypertension. Normal visualized aortic arch and descending thoracic aorta. There are degenerative changes of the visualized thoracic spine. Normal visualized ribs, clavicles, and shoulders. There is no demonstrated abnormality of the visualized soft tissue structures of the upper abdomen. RAD/Chest 1 View (Portable) IMPRESSION: Hyperinflation. There now is evidence of a mild degree of increased markings along the lateral aspect of the right lung base. Follow-up is recommended. Prominence of the pulmonary arteries bilaterally. Electronically Signed: Marty Cam MD at 13:24 EDT , Service support ,
[2021-03-26 13:21] LABS: Anion Gap 8 (5-15); BUN 6 mg/dL (7-18); BUN/Creat Ratio 7.3 RATIO (10-20); Calcium,Total 10.1 mg/dL (8.5-10.1); Chloride 91 mmol/L (98-107); Creatinine, Serum 0.82 mg/dL (0.55-1.02); D-Dimer Quantitative (DVT/PE) 0.94 FEU/ug/m (0.27-0.49); EST Glomerular Filtration Rate 75 mL/min (>60); Est Glom Filt Rate - Afr Amer 91 mL/min (>60); Estimated Creatinine Clearance 58.19 ml/min; Glucose 107 mg/dL (74-106); Potassium 3.6 mmol/L (3.5-5.1); Sodium Level 131 mmol/L (136-145); Troponin-I HS 9 pg/mL (3.0-54.0)
--- NOTE | 2021-03-26 13:35 | CT_ITS ---
STUDY: CTA CHEST REASON FOR EXAM: Female, 60 years old. 2 week history of upper respiratory illness. RADIATION DOSAGE (If Supplied By Facility): CTDIvol = ( 3.99 ) mGy, DLP = ( 122.63 ) mGycm TECHNIQUE: The examination was performed with the intravenous administration of IV 75mL [id number]-[id number]. Post-processing of the angiographic images was performed, with multiplanar reformation and 3D reconstruction. Individualized dose optimization techniques were used for this CT. COMPARISON: Comparison is made with prior CT scan of the chest dated 07/28/2020 and prior chest radiograph dated 03/26/2021. FINDINGS: Normal enhancement of the main pulmonary artery and right and left pulmonary arteries. Normal enhancement of the bilateral peripheral pulmonary arteries. There is no demonstrated pulmonary embolism. Normal thoracic aorta and visualized great vessels. There is no demonstrated aortic dissection. Normal heart and pericardium. Normal mediastinum. Normal hilar regions. Normal visualized trachea and bronchi. Hyperinflation. Emphysematous changes. No focal infiltration is seen. Normal pleura. Normal chest wall structures. There are degenerative changes of thoracic spine. Increased kyphosis. Normal visualized upper abdomen. CT/CTA Chest W/WO Contrast IMPRESSION: Hyperinflation. No acute abnormality is seen. No evidence of pulmonary embolism. Electronically Signed: Marty Cam MD at 14:20 EDT , Service support ,
[2021-03-26] MEDS: Doxycycline 100 MG CAPSULE PO (15:01)
--- NOTE | 2021-03-26 16:10 | PCM.HP.STD ---
HPI - General General Date of Admission: 03/26/21 HPI Narrative ANISA PABLO, is a 60 F who presented to the emergency department [facility] on 03/26/2021 complaining of shortness of breath. She reports she has had an increased work of breathing, cough, increased sputum production, and general malaise for approximately 1 week. She reports that it progressively has gotten worse to the point where she presented to the emergency department today. She has had chills but no documented fever. She smokes at baseline but has not been able to smoke secondary to her shortness of breath. She indicates that she is coughing up very thick yellow sputum which is changed from her baseline. She has been using her rescue inhaler and nebulizer at home without any significant relief at this time. In the emergency department her oxygen saturation dropped to 87% on room air and she was placed on 2 L nasal cannula. The patient is not oxygen dependent at baseline. Her vital signs demonstrate no fever but she is mildly tachycardic with her heart rate in the low 100s. Her CBC shows a mild leukocytosis at 11.1 and is stable mild anemia. Her BMP shows stable chronic hyponatremia and is otherwise unimpressive. A troponin was obtained and was negative. A D-dimer was elevated and the CTA of her chest was therefore performed and shows no acute pulmonary embolism and no infiltrate but hyperinflation was noted. Her EKG is unremarkable and has no changes consistent with acute ischemia. In the emergency department she was placed on oxygen and given a dose of doxycycline. She will be admitted to the medical surgical floor for continued care for an acute exacerbation of COPD. Of note patient has a history of alcoholism but states she is been sober for 30 days now. [facility] Medical History Abnormal mammogram Alcohol abuse Alcohol abuse Alcohol abuse Anxiety Bipolar 1 disorder COPD (chronic obstructive pulmonary disease) GERD (gastroesophageal reflux disease) Hepatotoxicity, secondary to ETOH Insomnia Malnutrition Smoker Home Medications loratadine 10 mg tablet 10 mg PO DAILY PRN 04/04/18 [History Last Taken 12/31/20 20:30] fluticasone furoate-vilanterol 1 puff INHALATION DAILY 07/16/18 [History Last Taken 01/27/21] albuterol sulfate 2 puff IH Q4H PRN 11/16/18 [History Last Taken 01/27/21] mirtazapine 15 mg PO QHS 11/16/18 [History Last Taken 01/27/21] dicyclomine 10 mg PO ACHS 10/17/19 [History Last Taken 01/27/21] hydroxyzine HCl 50 mg PO BID 10/17/19 [History Last Taken 01/27/21] pantoprazole 40 mg PO BID 10/17/19 [History Last Taken 01/26/21] amlodipine 5 mg PO DAILY 07/28/20 [History Last Taken 01/27/21] duloxetine 20 mg PO DAILY 07/28/20 [History Last Taken 01/27/21] sucralfate 1 g PO ACHS 01/28/21 [History Last Taken 01/27/21] doxepin 10 mg PO TID PRN PRN 02/23/21 [History Last Taken Unknown] gabapentin 100 mg PO DAILY 02/23/21 [History Last Taken Unknown] gabapentin 200 mg PO QHS 02/23/21 [History Last Taken Unknown] trazodone 25 - 50 mg PO TID PRN PRN 02/23/21 [History Last Taken Unknown] Allergy/AdvReac Type Severity Reaction Status Date / Time Penicillins Allergy SOB, cold Verified 03/26/21 12:18 sweats Family History Mother Hypertension Thyroid disorder CVA (cerebral vascular accident) Sister Heart disease Surgical History History of History of hysterectomy Social History household members: friend(s) Smoking Status: Current every day smoker tobacco type: cigarettes alcohol intake: current substance use type: does not use ROS Constitutional Constitutional: Reports chills, fatigue, malaise and weakness; Denies anorexia, change in weight, fever(s), night sweats or other Eyes Eyes: Denies blurry vision, change in eye color, change in vision, discharge from eye(s), double vision, erythema, eye pain, loss of vision or other ENT HEENT: Denies abnormal hearing, dysphagia, ear pain, epistaxis, headache(s), hearing loss, nasal congestion, nasal discharge, post nasal drip, sinus pressure, sore throat or other Cardiovascular Cardiovascular: Reports chest pain and dyspnea on exertion; Denies claudication, edema, lightheadedness, orthopnea, palpitations, paroxysmal nocturnal dyspnea, rapid heart rate, syncope or other Respiratory/Chest Respiratory/Chest: Reports cough, dyspnea, excessive phlegm production, productive cough, shortness of breath at rest and shortness of breath with exertion; Denies hemoptysis, wheezing or other Gastrointestinal Gastrointestinal: Denies abdominal pain, coffee ground emesis, constipation, diarrhea, dyspepsia, hematemesis, hematochezia, loose stools, melena, nausea, vomiting or other Genitourinary Genitourinary: Denies burning urination, difficulty urinating, dysuria, hematuria, nocturia, urinary frequency, urinary hesitancy, urinary incontinence, urinary urgency or other Musculoskeletal Musculoskeletal: Denies arthralgias, back pain, joint pain, joint stiffness, joint swelling, myalgias, neck pain or other Neurologic Neurologic: Denies abnormal gait, abnormal speech, confusion, disequilibrium, dizziness, focal weakness, headache(s), numbness, paresthesias, seizure-like activity, seizures, syncope, tingling, tremor(s) or other Psychiatric Psychiatric: Reports anxiety and depression; Denies homicidal ideation, suicidal ideation or other Endocrine Endocrinology: Denies change in body appearance, cold intolerance, excessive sweating, heat intolerance, polydipsia, polyuria or other Hematologic/Lymphatic Hematologic/Lymphatic: Denies anemia, easy bleeding, easy bruising, lymphadenopathy or other Allergic/Immunologic Allergic/Immunologic: Denies rhinitis, hives, eczemia, asthma or other Vital Signs Vital Signs Vital Signs: 03/26/21 12:18 03/26/21 13:06 03/26/21 14:20 Temperature 99 F Temperature Source Temporal Pulse Rate 127 H 98 97 Respiratory Rate 14 20 H 17 Respiratory Pattern Normal Blood Pressure 133/77 H Blood Pressure Mean 95 Pulse Ox 98 96 Oxygen Delivery Method Room Air Nasal Cannula Oxygen Flow Rate (L/min) 2 03/26/21 14:56 03/26/21 15:05 Temperature 97.3 F L Temperature Source Temporal Pulse Rate 94 102 H Respiratory Rate 17 20 H Respiratory Pattern Blood Pressure 117/84 H 127/87 H Blood Pressure Mean 95 100 Pulse Ox 94 96 Oxygen Delivery Method Nasal Cannula Nasal Cannula Oxygen Flow Rate (L/min) 2 2 Weight Weight: 49.895 kg Body Mass Index (BMI) 18.8 Physical Exam Const alert, oriented x3 and no apparent distress Constitutional Narrative: Thin upper middle-aged white female who appears older than stated age, lying in bed, appears ill but nontoxic General Appearance: cooperative HEENT normocephalic, head/scalp atraumatic, hearing grossly normal bilaterally, moist oral mucous membranes and oropharynx normal HEENT Narrative: No thrush, dentures in place Mouth: oral and palatal mucosa normal Eyes PERRL, EOMs intact bilaterally and conjunctivae normal Neck no lymphadenopathy, supple, no JVD and no carotid bruits Resp normal respiratory effort, no retractions and no use of accessory muscles Resp Narrative: Markedly diminished lung sounds diffusely with poor air movement Auscultation: Negative for crackles, rales, rhonchi or wheezes Cardio regular rhythm, S1 normal heart sound, S2 normal heart sound, no murmurs, no rub, no gallops, no clicks and no JVD Cardio Narrative: Mild tachycardia GI normal to inspection, nondistended, normoactive bowel sounds, soft to palpation, non-tender and non-distended Extremity normal to inspection and no clubbing, cyanosis or edema Peripheral Pulses: Yes pulses 2+ throughout Skin no rashes or lesions noted, no wounds, skin turgor normal, no jaundice, no petechiae and no mottling Neuro oriented x3, CN's II-XII intact bilaterally, moves all extremities and no focal motor deficits Neuro Narrative: Generalized weakness Sensorium / Orientation: awake, alert, oriented to person, oriented to place and oriented to time Speech: speech normal Psych affect normal Results Lab / Micro Data Attestation: I reviewed the patient's lab results. Result Diagrams: 03/26/21 13:00 03/26/21 13:00 Labs: Laboratory Results - last 24 hr 03/26/21 13:00: WBC 11.1 H, RBC 3.66 L, Hgb 11.2 L, Hct 34.3 L, MCV 93.7, MCH 30.6, MCHC 32.7, RDW Std Deviation 48.7 H, RDW Coeff of Rebeca 14.2, Plt Count 345, MPV 9.1, Immature Gran % (Auto) 1.000 H, Neut % (Auto) 64.7, Lymph % (Auto) 19.7, [place] % (Auto) 13.2 H, Eos % (Auto) 0.9, Baso % (Auto) 0.5, Absolute Neuts (auto) 7.2, Absolute Lymphs (auto) 2.18, Nucleated RBC % 0 03/26/21 13:00: D-Dimer Quant (PE/DVT) 0.94 H* 03/26/21 13:00: Sodium 131 L, Potassium 3.6, Chloride 91 L, Carbon Dioxide 32.0, Anion Gap 8, BUN 6 L, Creatinine 0.82, Estim Creat Clear Calc 58.19, Est GFR (MDRD) Af Amer 91, Est GFR (MDRD) Non-Af 75, BUN/Creatinine Ratio 7.3 L, Glucose 107 H, Calcium 10.1, Troponin I High Sens 9 Micro: Microbiology 03/26/21 13:00 Nasal Secretion SARS-CoV-2 Antigen (Rapid) - Final Radiology Impression Chest X-Ray 03/26/21 13:10 IMPRESSION: Hyperinflation. There now is evidence of a mild degree of increased markings along the lateral aspect of the right lung base. Follow-up is recommended. Prominence of the pulmonary arteries bilaterally. Electronically Signed: Marty Cam MD at 13:24 EDT , Service support , Chest CTA 03/26/21 13:35 IMPRESSION: Hyperinflation. No acute abnormality is seen. No evidence of pulmonary embolism. Electronically Signed: Marty Cam MD at 14:20 EDT , Service support , Assessment & Plan Assessment/Plan (1) Acute and chronic respiratory failure with hypoxia: (2) Acute exacerbation of COPD with asthma: PLAN: Acute hypoxic respiratory failure secondary to acute exacerbation of COPD -Patient is not oxygen dependent at baseline -Continue supplemental oxygen as needed -Currently on 2 L nasal cannula -Wean as able -Since patient is hypoxic and has had changes in her sputum production and quality I will start antibiotics with Levaquin and azithromycin -Check sputum culture -Check viral PCR -Negative Covid rapid -Solu-Medrol 40 every 8x4 doses then prednisone 40 mg daily -Aggressive pulmonary toilet -IS and Pep therapy -Would recommend outpatient follow-up with pulmonary after discharge Leukocytosis -See above Mild chronic anemia -Stable -Monitor Chronic hyponatremia -Suspect this may be worse given her respiratory issues at this time but also may be medication driven -Should improve -Continue to monitor COPD with continued tobacco abuse -Continue home inhalers sans albuterol -Recommend smoking cessation -Pulmonary follow-up after discharge Depression/anxiety -Continue home medications GERD -Continue Carafate and Protonix History of alcohol abuse -Patient states she has been sober for 30 days now -Continue to monitor DVT prophylaxis -Lovenox daily CODE STATUS -Full code Charges/Coding Visit Charges Inpatient E&M: 16514 Subs Hosp L2
[2021-03-26] MEDS: Dicyclomine 10 MG Capsule PO ×2 (17:45→21:54)
[2021-03-26] MEDS: Sucralfate 1 GM Tablet PO ×2 (17:45→21:55)
[2021-03-26] MEDS: Azithromycin 250 MG Tablet 500 MG PO (17:45)
[2021-03-26] MEDS: Budesonide Respules 0.5 MG/2 ML AMPUL.NEB. INHALATION (19:00)
[2021-03-26] MEDS: Gabapentin 100 MG Capsule 200 MG PO (21:53)
[2021-03-26] MEDS: hydrOXYzine PAM 25 MG Capsule 50 MG PO (21:54)
[2021-03-26] MEDS: Mirtazapine 15 MG Tablet PO (21:55)
[2021-03-26] MEDS: levoFLOXacin 750 MG Tablet PO (21:55)
[2021-03-26] MEDS: Pantoprazole Sodium 40 MG Tablet PO (21:55)
[2021-03-26] MEDS: guaiFENesin 1,200 MG Tablet 1200 MG PO (21:55)
[2021-03-26] MEDS: 0.9% Saline Lock 10 ML Syringe IV (21:55)
[2021-03-27] VITALS (11 sets, daily range): BP systolic 129–143; BP diastolic 68–91; PULSE 81–110; RESP 15–20; TEMP 36.1–36.8; O2SAT 90–99
[2021-03-27] MEDS: 0.9% Saline Lock 10 ML Syringe IV ×3 (04:40→21:02)
[2021-03-27] MEDS: levoFLOXacin 750 MG Tablet PO (04:40)
[2021-03-27 05:59] LABS: Absolute Lymphocyte Count 1.52 X10^3/uL (0.83-4.51); Absolute Neutrophil Count 11.7 X10^3/uL (2.0-7.7); Basophil# 0.05 X10^3/uL; Basophil% 0.4 % (0-1); Hemoglobin 10.6 g/dL (12.0-15.0); Lymphocyte # 1.52 X10^3/ul (0.83-4.51); Lymphocyte % 10.9 % (19-41); Mean Corp Hgb Conc 32.1 g/dL (32-36); Mean Corpuscular Hgb 30.5 pg (27.0-32.0); Mean Corpuscular Volume 94.8 fL (81-99); Mean Platelet Vol. 9.3 fl (6.2-12.0); Monocyte% 2.9 % (0-10); NRBC Flagged by Analyzer 0 % (0-5); Neutrophil # 11.72 X10^3/uL (2.7-7.7); Neutrophil % 84.1 % (47-70); Platelet Count 388 K/mm3 (150-450); RBC Distribution Width CV 14.2 % (11.6-14.6); RBC Distribution Width SD 49.1 fl (35.1-43.9); Red Blood Count 3.48 M/mm3 (4.2-5.4); White Blood Count 13.9 K/mm3 (4.4-11.0)
[2021-03-27 06:36] LABS: ALB/GLOB Ratio 0.5 RATIO (0.9-2.4); AST(SGOT) 17 U/L (15-37); Alanine Aminotransfer ALT/SGPT 22 U/L (13-56); Albumin, Serum 2.8 g/dL (3.2-5.0); Alkaline Phosphatase 105 U/L (45-117); Anion Gap 8 (5-15); BUN 16 mg/dL (7-18); BUN/Creat Ratio 18.1 RATIO (10-20); Calcium,Total 9.8 mg/dL (8.5-10.1); Chloride 93 mmol/L (98-107); Creatinine, Serum 0.88 mg/dL (0.55-1.02); EST Glomerular Filtration Rate 70 mL/min (>60); Est Glom Filt Rate - Afr Amer 84 mL/min (>60); Estimated Creatinine Clearance 50.64 ml/min; Globulin 5.1 g/dL (2.2-4.2); Glucose 120 mg/dL (74-106); Magnesium 1.6 mg/dL (1.6-2.6); Phosphorus 3.8 mg/dL (2.5-4.9); Potassium 3.6 mmol/L (3.5-5.1); Protein, Total 7.9 g/dL (6.4-8.2); Sodium Level 130 mmol/L (136-145)
[2021-03-27] MEDS: Ipratropium/Albuterol Sulfate 3 ML AMPUL.NEB INHALATION ×4 (08:15→19:00)
[2021-03-27] MEDS: Budesonide Respules 0.5 MG/2 ML AMPUL.NEB. INHALATION ×2 (08:15→19:00)
[2021-03-27] MEDS: hydrOXYzine PAM 25 MG Capsule 50 MG PO ×2 (09:59→21:02)
[2021-03-27] MEDS: Gabapentin 100 MG Capsule PO (10:00)
[2021-03-27] MEDS: Sucralfate 1 GM Tablet PO ×4 (10:00→21:01)
[2021-03-27] MEDS: Dicyclomine 10 MG Capsule PO ×4 (10:01→21:01)
[2021-03-27] MEDS: amLODIPine 5 MG Tablet PO (10:01)
[2021-03-27] MEDS: guaiFENesin 1,200 MG Tablet 1200 MG PO ×2 (10:01→21:01)
[2021-03-27] MEDS: DULoxetine Hcl 20 MG Capsule PO (10:01)
[2021-03-27] MEDS: Enoxaparin 40 MG/0.4 ML Syringe SC (10:01)
[2021-03-27] MEDS: Azithromycin 250 MG Tablet 500 MG PO (10:01)
[2021-03-27] MEDS: Pantoprazole Sodium 40 MG Tablet PO ×2 (10:02→21:02)
[2021-03-27] MEDS: traZODone 50 MG Tablet PO ×2 (10:08→19:36)
--- NOTE | 2021-03-27 11:40 | CASEMGMT ---
RN PATRICIO Face to Face with patient for initial transition planning/care coordination assessment. RN CM introduced self and role at [facility]. Patient lying in bed, alert and oriented. Patient willing to participate in assessment and is able to answer all questions appropriately. Care providers, pharmacy, and demographics verified. Patient wishes to discharge home, denies need for home health at this time. Patient states she has no further needs or concerns at this time. CM to follow for discharge planning needs that may arise. PCP: [place] Specialists: lety Edwards; Sheldon business project manager Preferred [facility]acy: [facility] Insurance: [employer] Prescription Benefit: yes Living Will/HPOA: none LNOK: son Living Arrangements: Patient is currently [facility] . Patient states she is independent at home. Transportation: Creative Services Manager DME/HHC: Patient staees she has shower chair, rollator, and nebulizer. Patient provided with list of DME and prefers [employer]. Green sheet on chart for possible home oxygen. No previous HHC or SNF Disposition Plan: Patient to discharge home with family support and follow-up plans in place. Lily MARIN, RN, CM
[2021-03-27] MEDS: Ondansetron 4 MG/2 ML Vial IV (15:57)
--- NOTE | 2021-03-27 17:52 | PCM.PN.HOSP ---
Subjective Subjective Patient was seen and examined today, at the time of this dictation, she is on room air. Patient did not appear in any distress this morning. Patient still smokes, she is currently staying in an addiction inpatient facility for alcohol detox. Objective Data Objective Data Vital Signs: Vital Signs Temp Pulse Resp BP Pulse Ox 97.9 F 102 H 18 132/70 H 90 03/27/21 15:55 03/27/21 15:55 03/27/21 15:55 03/27/21 15:55 03/27/21 15:55 Oxygen Flow Rate (L/min) 2 Oxygen Delivery Method Room Air Weight: 46.6 kg Body Mass Index (BMI) 17.6 Intake & Output: Intake and Output for Last 24 Hours 03/25/21 03/26/21 03/27/21 23:59 23:59 23:59 Intake Total 1200 / 1200 Balance 1200 / 1200 Medical Nutrition Assessment Dietitian: Malnutrition Criteria Met Start: 03/27/21 12:30 Freq: Status: Active Protocol: Document 03/27/21 12:30 RADHA (Rec: 03/27/21 12:30 [facility] [id number]) Nutrition Malnutrition Evidence of Malnutrition Exists Yes Evidenced By Suboptimal Energy Intake ( Severe),Weight Loss (Severe), Physical Changes (Severe) Clinical Problem Chronic Disease or Condition Related Malnutrition Etiology related to shingles in Aug 2020 and issues with alcohol abuse causing pt to have inadequate oral intake to meet est nutritional needs Signs/Symptoms as evidenced by 21.1% wt loss x 7 months, decreased appetite and obvious fat/muscle loss ( orbital/temporal/clavicle areas, legs and arms also thin ) Status Active Problem Recommendation Dietitian Recommendations/Changes Will liberalize diet to Regular No Added Salt w/ 8 oz ensure enlive w/ meals per pt preference. Lab / Micro Data Result Diagrams: 03/27/21 05:26 03/27/21 05:26 Labs: Laboratory Results - last 24 hr 03/27/21 05:26: WBC 13.9 H, RBC 3.48 L, Hgb 10.6 L, Hct 33.0 L, MCV 94.8, MCH 30.5, MCHC 32.1, RDW Std Deviation 49.1 H, RDW Coeff of Rebeca 14.2, Plt Count 388, MPV 9.3, Immature Gran % (Auto) 1.700 H, Neut % (Auto) 84.1 H, Lymph % (Auto) 10.9 L, Early % (Auto) 2.9, Eos % (Auto) 0.0, Baso % (Auto) 0.4, Absolute Neuts (auto) 11.7 H, Absolute Lymphs (auto) 1.52, Nucleated RBC % 0 03/27/21 05:26: Sodium 130 L, Potassium 3.6, Chloride 93 L, Carbon Dioxide 29.0, Anion Gap 8, BUN 16, Creatinine 0.88, Estim Creat Clear Calc 50.64, Est GFR (MDRD) Af Amer 84, Est GFR (MDRD) Non-Af 70, BUN/Creatinine Ratio 18.1, Glucose 120 H, Calcium 9.8, Phosphorus 3.8, Magnesium 1.6, Total Bilirubin 0.30, AST 17, ALT 22, Alkaline Phosphatase 105, Total Protein 7.9, Albumin 2.8 L, Globulin 5.1 H, Albumin/Globulin Ratio 0.5 L Micro: Microbiology 03/26/21 15:50 Mucosa - Nose Respiratory Panel (PCR) - Final 03/26/21 13:00 Nasal Secretion SARS-CoV-2 Antigen (Rapid) - Final Physical Exam Const alert, oriented x3, no apparent distress and healthy appearing General Appearance: cooperative, well kempt and well developed Orientation / Consciousness: awake, oriented to person, oriented to place and oriented to time HEENT normocephalic and moist oral mucous membranes Head and Scalp: normocephalic Eyes PERRL, EOMs intact bilaterally and conjunctivae normal Neck nuchal rigidity, supple, no JVD, thyroid normal and no carotid bruits General: trachea midline Resp normal respiratory effort, no retractions and no use of accessory muscles Resp Narrative: Decreased breath sounds are noted bilaterally Auscultation: Negative for rales, rhonchi or wheezes Cardio regular rate, regular rhythm, S1 normal heart sound, S2 normal heart sound, no murmurs, no rub and no gallops GI normal to inspection, nondistended, normoactive bowel sounds, soft to palpation, non-tender and non-distended Extremity no clubbing, cyanosis or edema Skin no rashes or lesions noted and skin turgor normal General Skin Exam: no breakdown Neuro oriented x3, CN's II-XII intact bilaterally, no focal motor deficits and no sensory deficits noted Sensorium / Orientation: awake and alert Speech: speech normal Psych thought process normal and affect normal Assessment & Plan Assessment/Plan (1) COPD (chronic obstructive pulmonary disease): QUALIFIERS: COPD type: unspecified COPD Qualified Code(s): J44.9 - Chronic obstructive pulmonary disease, unspecified PLAN: 1. Exacerbation of COPD-continue present treatment #2 acute hypoxic respiratory failure-patient is currently on room air #3 essential hypertension #4 severe protein and caloric malnutrition-nutritional services is seeing patient #5 chronic depression #6 acute bronchitis-I will continue the patient on Zithromax and stop her Levaquin. I do not believe she needs two antibiotics at this time. #7 alcoholism-patient is currently in an inpatient program for alcohol detox Charges/Coding Visit Charges Inpatient E&M: 12195 Subs Hosp L2
[2021-03-27] MEDS: Acetaminophen 325 MG Tablet 650 MG PO (19:36)
--- NOTE | 2021-03-27 20:10 | NURSING ---
pt room smelling like cigarette smoke. pt denies smoking.
[2021-03-27] MEDS: Gabapentin 100 MG Capsule 200 MG PO (21:02)
[2021-03-27] MEDS: Mirtazapine 15 MG Tablet PO (21:03)
[2021-03-28] VITALS (9 sets, daily range): BP systolic 126–153; BP diastolic 69–94; PULSE 78–110; RESP 16–18; TEMP 36.4–36.8; O2SAT 86–96
[2021-03-28] MEDS: Dicyclomine 10 MG Capsule PO ×2 (06:31→11:09)
[2021-03-28] MEDS: Sucralfate 1 GM Tablet PO ×2 (06:31→11:09)
[2021-03-28] MEDS: Ipratropium/Albuterol Sulfate 3 ML AMPUL.NEB INHALATION ×2 (07:03→11:14)
[2021-03-28] MEDS: Budesonide Respules 0.5 MG/2 ML AMPUL.NEB. INHALATION (07:03)
[2021-03-28] MEDS: hydrOXYzine PAM 25 MG Capsule 50 MG PO (09:09)
[2021-03-28] MEDS: Azithromycin 250 MG Tablet 500 MG PO (09:09)
[2021-03-28] MEDS: Pantoprazole Sodium 40 MG Tablet PO (09:09)
[2021-03-28] MEDS: predniSONE 20 MG Tablet 40 MG PO (09:09)
[2021-03-28] MEDS: Gabapentin 100 MG Capsule PO (09:10)
[2021-03-28] MEDS: Enoxaparin 40 MG/0.4 ML Syringe SC (09:11)
[2021-03-28] MEDS: DULoxetine Hcl 20 MG Capsule PO (09:11)
[2021-03-28] MEDS: amLODIPine 5 MG Tablet PO (09:12)
[2021-03-28] MEDS: guaiFENesin 1,200 MG Tablet 1200 MG PO (09:12)
[2021-03-28] MEDS: Doxepin Hydrochloride 10 MG Capsule PO (09:17)
--- NOTE | 2021-03-28 10:01 | PCS.PANDOC ---
PANDEMIC DOCUMENTATION INITIATED: Date: 02/22/2021 Time: 190
--- NOTE | 2021-03-28 10:18 | PCM.DC ---
Discharge Instructions Diet Discharge Diet: No restrictions Activity Discharge Activity: No Restrictions Weight Bearing Status: Full weight bearing Follow Up Care Test Results: Test results from this visit will be discussed in further detail at your follow-up appointment, if applicable. Discharge Plan Admission Admit Date/Time: 03/26/21 15:28 Attending Provider: Gonzales De Leon Primary Care Provider: Kellie Delarosa Instructions Patient Instructions: ED Chest Pain, Noncardiac Additional Instructions / Restrictions: Recommend smoking cessation Discharge Orders/Prescriptions Prescriptions: New prednisone 20 mg Tablet 40 mg PO DAILY@0800 Qty: 10 RF: 0 Continued loratadine [Claritin] 10 mg tablet 10 mg PO DAILY PRN (Reason: Allergies) RF: 0 fluticasone furoate-vilanterol 1 EACH blister with device 1 puff inhalation DAILY RF: 0 mirtazapine 15 tablet 15 mg PO QHS RF: 0 albuterol sulfate 18 GM HFA aerosol inhaler 2 puff IH Q4H PRN (Reason: Sob &/Or Wheezing) RF: 0 hydroxyzine HCl 50 MG tablet 50 mg PO BID RF: 0 dicyclomine 10 MG capsule 10 mg PO ACHS RF: 0 pantoprazole 40 MG tablet 40 mg PO BID RF: 0 amlodipine 10 MG tablet 5 mg PO DAILY RF: 0 duloxetine 20 MG capsule,delayed release(DR/EC) 20 mg PO DAILY RF: 0 sucralfate 1 gram tablet 1 g PO ACHS RF: 0 trazodone 50 mg Tablet 25 - 50 mg PO TID PRN PRN (Reason: Anxiety) RF: 0 doxepin 10 mg Capsule 10 mg PO TID PRN PRN (Reason: Anxiety) RF: 0 gabapentin 100 mg Capsule 200 mg PO QHS RF: 0 gabapentin 100 mg Capsule 100 mg PO DAILY RF: 0 Referrals / Follow Up: Kellie Delarosa DO [Primary Care Provider] - Within 2 Weeks Disposition Disposition (needs filled in before D/C Order can be placed): Home, Self Care
[2021-03-28] MEDS: 0.9% Saline Lock 10 ML Syringe IV (11:11)
[2021-03-28] MEDS: traZODone 50 MG Tablet PO (11:11)
[2021-03-28] MEDS: Ondansetron 4 MG/2 ML Vial IV (11:11)
--- NOTE | 2021-03-29 13:58 | CASEMGMT ---
RN CM Discharge Follow-up Phone Call: JOSE G: 14 Strata: 4 Call Date: 03/29/21 Discharge Date: 03/28/21 Time of Call: 1358 Duration: 1 min Admitting Diagnosis: AECOPD RN CM attempted to complete follow-up phone call after recent hospitalization. No answer, unable to leave message and call was disconnected. CM will attempt to complete call at later time. Patient was discharged to [facility].
--- NOTE | 2021-03-29 19:22 | DS.PCM_ITS ---
Providers Date of Admission: 03/26/21 Date of Discharge: 03/28/21 Primary Care Physician: Dr. Kellie Delarosa DO Reason For Visit: AECOPD Diagnosis Discharge Diagnosis (1) COPD (chronic obstructive pulmonary disease): Status: Chronic Code(s): J44.9 - Chronic obstructive pulmonary disease, unspecified Qualifiers: COPD type: unspecified COPD Qualified Code(s): J44.9 - Chronic obstructive pulmonary disease, unspecified Plan: Final diagnosis: #1 exacerbation of COPD #2 acute hypoxic respiratory failure #3 essential hypertension #4 severe protein and caloric malnutrition #5 chronic depression #6 acute bronchitis #7 alcoholism-in remission Medications at Discharge Home Medications loratadine 10 mg tablet 10 mg PO DAILY PRN 04/04/18 fluticasone furoate-vilanterol 1 puff INHALATION DAILY 07/16/18 albuterol sulfate 2 puff IH Q4H PRN 11/16/18 mirtazapine 15 mg PO QHS 11/16/18 dicyclomine 10 mg PO ACHS 10/17/19 hydroxyzine HCl 50 mg PO BID 10/17/19 pantoprazole 40 mg PO BID 10/17/19 amlodipine 5 mg PO DAILY 07/28/20 duloxetine 20 mg PO DAILY 07/28/20 sucralfate 1 g PO ACHS 01/28/21 doxepin 10 mg PO TID PRN PRN 02/23/21 gabapentin 100 mg PO DAILY 02/23/21 gabapentin 200 mg PO QHS 02/23/21 trazodone 25 - 50 mg PO TID PRN PRN 02/23/21 prednisone 40 mg PO DAILY@0800 #10 tab 03/28/21 Hospital Course Operations None Procedures None Summary of Care Provided Minutes Spent on Discharge: 32 Hospital Course: This 60-year-old white female was seen in the emergency room with complaints of cough, shortness of breath, and yellow sputum production. Patient is a smoker, she resides in a an inpatient alcohol detox facility where she is undergoing treatment. Work-up in the emergency room included chest x-ray which showed no evidence of pneumonia, CTA of the chest was performed which showed no evidence of pulmonary embolism, signs of hyperinflation was noted to be present. Patient's pulse ox on room air was 87%, she was placed on 2 L via nasal cannula. Patient was given a dose of doxycycline in the emergency room and was admitted to [facility] for exacerbation of COPD. Patient's oxygen was weaned during her hospital stay, she was placed on aerosol treatments and received IV antibiotics. Patient improved during her hospital stay, on 03/28/2021, patient was seen and examined: On examination she appeared in good health and spirits, she does not appear to be in any distress. Vital signs as documented. Skin warm and dry and without overt rashes. Neck without JVD, thyroid appears normal, trachea is midline, neck is supple. Lungs clear, normal air movement was noted. Heart exam notable for regular rhythm, normal sounds and absence of murmurs, rubs or gallops. Abdomen unremarkable and without evidence of organomegaly, masses, or abdominal aortic enlargement, bowel sounds are present in all 4 quadrants, no abdominal tenderness was noted. Extremities nonedematous, no cyanosis was noted, no clubbing was noted. Neuro: Cranial nerves II through XII are grossly intact, no focal motor deficits were noted, sensation to light touch and pinprick is intact, motor exam 5/5 throughout. Psych: Patient is alert and oriented x3, she does not appear anxious or depressed, she does not appear agitated. Patient appears stable for discharge on 03/28/2021. Weight / BMI Weight Weight: 46.6 kg Body Mass Index (BMI) 17.6 ABG / Lab / Microbiology Data Result Diagrams: 03/27/21 05:26 03/27/21 05:26 Microbiology: Microbiology 03/26/21 15:50 Mucosa - Nose Respiratory Panel (PCR) - Final 03/26/21 13:00 Nasal Secretion SARS-CoV-2 Antigen (Rapid) - Final D/C Instructions Discharge Diet: No restrictions Weight Bearing Status: Full weight bearing Meaningful Use Info Meaningful Use Diagnoses (Choose all that apply): None applicable Discharge Plan Admission Admit Date/Time: 03/26/21 15:28 Attending Provider: Gonzales De Leon Primary Care Provider: Kellie Delarosa Instructions Patient Instructions: ED Chest Pain, Noncardiac Additional Instructions / Restrictions: Recommend smoking cessation Discharge Orders/Prescriptions Prescriptions: New prednisone 20 mg Tablet 40 mg PO DAILY@0800 Qty: 10 RF: 0 Continued loratadine [Claritin] 10 mg tablet 10 mg PO DAILY PRN (Reason: Allergies) RF: 0 fluticasone furoate-vilanterol 1 EACH blister with device 1 puff inhalation DAILY RF: 0 mirtazapine 15 tablet 15 mg PO QHS RF: 0 albuterol sulfate 18 GM HFA aerosol inhaler 2 puff IH Q4H PRN (Reason: Sob &/Or Wheezing) RF: 0 hydroxyzine HCl 50 MG tablet 50 mg PO BID RF: 0 dicyclomine 10 MG capsule 10 mg PO ACHS RF: 0 pantoprazole 40 MG tablet 40 mg PO BID RF: 0 amlodipine 10 MG tablet 5 mg PO DAILY RF: 0 duloxetine 20 MG capsule,delayed release(DR/EC) 20 mg PO DAILY RF: 0 sucralfate 1 gram tablet 1 g PO ACHS RF: 0 trazodone 50 mg Tablet 25 - 50 mg PO TID PRN PRN (Reason: Anxiety) RF: 0 doxepin 10 mg Capsule 10 mg PO TID PRN PRN (Reason: Anxiety) RF: 0 gabapentin 100 mg Capsule 200 mg PO QHS RF: 0 gabapentin 100 mg Capsule 100 mg PO DAILY RF: 0 Referrals / Follow Up: Kellie Delarosa DO [Primary Care Provider] - Within 2 Weeks Disposition Disposition (needs filled in before D/C Order can be placed): Home, Self Care Charges/Coding Visit Charges Inpatient E&M: 37291 Disch Hosp
== END 2021-03-28 14:20 | disposition home or self-care (01) | DRG 140 ==
LOC: ED 15:02 → MS2 03-27 07:53
PROVIDERS: Admitting Provider Internal Medicine; Emergency Provider Emergency Medicine; PCP Family Medicine; Visit Provider Internal Medicine
DX: J44.1 Chronic obstructive pulmonary disease with (acute) exacerbation (principal); E46 Unspecified protein-calorie malnutrition; F10.21 Alcohol dependence, in remission; F31.9 Bipolar disorder, unspecified; J96.01 Acute respiratory failure with hypoxia; F41.9 Anxiety disorder, unspecified; I10 Essential (primary) hypertension; K21.9 Gastro-esophageal reflux disease without esophagitis; F17.210 Nicotine dependence, cigarettes, uncomplicated; E87.1 Hypo-osmolality and hyponatremia; Z79.899 Other long term (current) drug therapy; Z79.51 Long term (current) use of inhaled steroids; Z68.1 Body mass index [BMI] 19.9 or less, adult
CPT/HCPCS: 36415; 71045; 71275; 80048; 80053; 83735; 84100; 84484; 85025; 85379; 87426; 87633; 93005; 94640; 94667; 94668; 96372; 96374; 96375; 96376; 97802; 99218; 99251; 99252; 99285; 99406; Q9967; A4216; G0378; G0463; J2405

== ENCOUNTER 2021-06-21 17:14 | Emergency (ER) | payer MEDICAID, SELFPAY ==
[2021-06-21] VITALS (7 sets, daily range): BP systolic 120–128; BP diastolic 70–104; PULSE 86–96; RESP 15–18; TEMP 36.7–36.8; O2SAT 88–99; BMI 19.9
--- NOTE | 2021-06-21 19:54 | RAD_ITS ---
STUDY: X-RAY CHEST REASON FOR EXAM: Female, 60 years old. Cough, rales right side, positive Covid TECHNIQUE: AP portable COMPARISON: 03/26/2021 FINDINGS: There is interstitial thickening in the right upper lobe with increased density and to lesser extent at the left base possibly due to atypical viral pneumonia.. There is no demonstrated pleural abnormality. Normal size heart. Normal mediastinum and liam. Normal visualized pulmonary arteries. Normal visualized aortic arch and descending thoracic aorta. Normal visualized thoracic spine. Normal visualized ribs, clavicles, and shoulders. There is no demonstrated abnormality of the visualized soft tissue structures of the upper abdomen. RAD/Chest 1 View (Portable) IMPRESSION: Findings which may be consistent with Covid 19 pneumonia most pronounced in the right upper lobe Electronically Signed: Ammon Gray MD at 20:59 EST , Service support ,
--- NOTE | 2021-06-21 19:55 | ED.VIS.DYS ---
HPI History of Present Illness Chief Complaint: Shortness of Breath Detail of Chief Complaint: Onset of symptoms June 12 Informant: patient Onset/Context/Timing Onset: Days Context: sudden Timing: Continuous and Waxes and wanes Quality: Positive for Dyspnea on exertion and Wheezing; Negative for Orthopnea and PND Current Severity: Mild Maximum Severity: Moderate Worsened by: Exertion and Coughing; Not Worsened By Lying flat and other Relieved by: Nothing Associated Symptoms cough, rhinorrhea, post nasal drip, chills, sweats and other; Negative for ear pain, fever, sore throat, subjective, clear sputum, white sputum, yellow sputum or green sputum Chest Pain: Positive for Intermittent and - (Pain right side) Narrative Narrative: Patient is a 60-year-old woman who is in a drug rehab facility for alcoholism who had onset of upper respiratory symptoms June 12. 1 week ago she had a positive Covid test. She has been quarantined with 3 other residents who are positive for Covid. She is a smoker. She does have history of COPD. She denies fever but complains of shaking chills and myalgias and arthralgias. She states everything tastes terrible . Presently she denies rhinorrhea, congestion or sore throat. She initially had a sore throat. Her cough is nonproductive. She denies nausea, vomiting or diarrhea. She denies rash. PE Risk Factors: Negative for Cancer, OCP + Smoking + > 35, Prior DVT or PE, Recent immobilization, Recent surgery and Recent travel Prior similar symptoms: No Recent Illness/Hospitalization: No PFSH PFSH Medical History Abnormal mammogram Alcohol abuse Alcohol abuse Alcohol abuse Anxiety Bipolar 1 disorder Chronic pain COPD (chronic obstructive pulmonary disease) Coronary artery disease GERD (gastroesophageal reflux disease) Hepatotoxicity, secondary to ETOH Insomnia Malnutrition Smoker Home Medications loratadine 10 mg tablet 10 mg PO DAILY PRN 04/04/18 [History Last Taken 12/31/20 20:30] fluticasone furoate-vilanterol 1 puff INHALATION DAILY 07/16/18 [History Last Taken 01/27/21] albuterol sulfate 2 puff IH Q4H PRN 11/16/18 [History Last Taken 01/27/21] mirtazapine 15 mg PO QHS 11/16/18 [History Last Taken 01/27/21] dicyclomine 10 mg PO ACHS 10/17/19 [History Last Taken 01/27/21] hydroxyzine HCl 50 mg PO BID 10/17/19 [History Last Taken 01/27/21] pantoprazole 40 mg PO BID 10/17/19 [History Last Taken 01/26/21] amlodipine 5 mg PO DAILY 07/28/20 [History Last Taken 01/27/21] duloxetine 20 mg PO DAILY 07/28/20 [History Last Taken 01/27/21] sucralfate 1 g PO ACHS 01/28/21 [History Last Taken 01/27/21] doxepin 10 mg PO TID PRN PRN 02/23/21 [History Last Taken Unknown] gabapentin 100 mg PO DAILY 02/23/21 [History Last Taken Unknown] gabapentin 200 mg PO QHS 02/23/21 [History Last Taken Unknown] trazodone 25 - 50 mg PO TID PRN PRN 02/23/21 [History Last Taken Unknown] prednisone 40 mg PO DAILY@0800 #10 tab 03/28/21 [Rx Last Taken Unknown] Allergy/AdvReac Type Severity Reaction Status Date / Time Penicillins Allergy SOB, cold Verified 03/26/21 12:18 sweats Family History Mother Hypertension Thyroid disorder CVA (cerebral vascular accident) Sister Heart disease Surgical History History of History of hysterectomy Social History household members: friend(s) Smoking Status: Current every day smoker tobacco type: cigarettes alcohol intake: current substance use type: does not use ROS ROS ED Constitutional Constitutional ED: Reports chills and sweats; Denies fever(s) or weight loss Eyes Eyes: Denies blurry vision, change in vision or diplopia ENT ENT ED: Reports rhinorrhea and sore throat; Denies ear pain Cardiovascular Cardiovascular: Reports chest pain; Denies orthopnea, palpitations, paroxysmal nocturnal dyspnea or racing heartbeat Respiratory/Chest Respiratory/Chest: Reports cough, dyspnea and dyspnea on exertion; Denies orthopnea, paroxysmal nocturnal dyspnea or sputum Gastrointestinal Gastrointestinal: Denies abdominal pain, diarrhea, nausea or vomiting Genitourinary Genitourinary ED: Denies dysuria, hematuria or urinary frequency Musculoskeletal Musculoskeletal: Denies arthralgias, myalgias or neck pain Integumentary Denies abscess, Abrasions or rash Neurologic Neurologic: Denies headache(s) or weakness Psychiatric Psychiatric: Denies anxiety or depression Endocrine Endocrinology: Denies polydipsia, polyphagia or polyuria Hematologic/Lymphatic Hematologic/Lymphatic: Denies easy bleeding or easy bruising EXAM Physical Exam Const Vital Signs: 06/21/21 17:16 06/21/21 20:02 06/21/21 20:51 Temperature 98.1 F Temperature Source Temporal Pulse Rate 93 93 Respiratory Rate 18 18 Respiratory Effort Respiratory Depth Respiratory Pattern Blood Pressure 120/104 H Blood Pressure Mean 109 Pulse Ox 94 88 Oxygen Delivery Method Room Air Room Air Oxygen Flow Rate (L/min) 06/21/21 21:01 Temperature Temperature Source Pulse Rate Respiratory Rate Respiratory Effort Normal Non-Labored Respiratory Depth Normal Respiratory Pattern Normal Blood Pressure Blood Pressure Mean Pulse Ox Oxygen Delivery Method Nasal Cannula Oxygen Flow Rate (L/min) 2 Positive well nourished and well developed General Appearance ED: well developed, NAD and other Patient is cachectic. ; Negative for pallor HEENT Reports TM's clear and moist mucous membranes atraumatic; Negative for tenderness Tympanic Membrane ED: Yes TM's clear Eyes PERRL and EOMs intact bilaterally General Eye ED: Negative for pale conjunctiva or scleral icterus Neck no lymphadenopathy, supple, no meningeal signs and no JVD Resp normal respiratory effort and No clear to auscultation bilaterally Auscultation: rales right base Cardio regular rate, regular rhythm, S1 normal heart sound, S2 normal heart sound and no murmurs GI non-tender, non-distended and no masses Auscultation: normoactive bowel sounds Palpation: soft Back/Spine no CVA tenderness and normal to inspection General Back: Negative for CVA tenderness Extremity normal to inspection General Extremety ED: Negative for edema or tenderness General Extremity: Negative for edema Neuro oriented x3, CN's II-XII intact bilaterally and no sensory deficits noted Ely Coma Scale: document GCS findings Spontaneous Obeys Commands Oriented 15 Sensorium / Orientation: alert Motor Exam: strength 5/5 throughout Psych mental status grossly normal Thought Process: normal thought process Skin no wounds General Skin Exam: Negative for jaundice or pallor Lesions: no lesions Rashes: no rashes MDM MDM MDM Narrative Medical decision making narrative: Patient states her pulse ox was low at the detox facility. He has been using her inhaler without much improvement. Will obtain chest x-ray appropriate blood work to assess for pneumonia and will treat with DuoNeb and albuterol. She also received a dose of IV Decadron. Lab Data Attestation: I reviewed the patient's lab results. Labs: Laboratory Results - last 24 hr 06/21/21 06/21/21 20:10 20:10 WBC 13.5 H RBC 3.45 L Hgb 9.4 L Hct 29.1 L MCV 84.3 MCH 27.2 MCHC 32.3 RDW Std Deviation 46.5 H RDW Coeff of Rebeca 15.2 H Plt Count 355 MPV 9.9 Immature Gran % (Auto) PROOF OPERATOR Neut % (Auto) PROOF OPERATOR Lymph % (Auto) PROOF OPERATOR [place] % (Auto) PROOF OPERATOR Eos % (Auto) PROOF OPERATOR Baso % (Auto) PROOF OPERATOR Absolute Neuts (auto) 10.0 H Absolute Lymphs (auto) 2.84 Total Counted 100 Neutrophils % (Manual) 72 H Band Neutrophils % 2 Lymphocytes % (Manual) 21 Eosinophils % (Manual) 2 Metamyelocytes % 2 H Myelocytes % 1 H Nucleated RBC % PROOF OPERATOR Diff Path Review May foll Reactive Lymphocytes 1+ Platelet Estimate ADEQUATE RBC Morphology NORM C+C Sodium 137 Potassium 2.6 L* Chloride 100 Carbon Dioxide 26.0 Anion Gap 11 BUN 51 H Creatinine 2.02 H Estim Creat Clear Calc 24.91 Est GFR (MDRD) Af Amer 32 L Est GFR (MDRD) Non-Af 27 L BUN/Creatinine Ratio 25.2 H Glucose 110 H Calcium 9.5 Radiography Chest X-Ray - ED: 1 View and Read by ED Physician (Single view portable chest x-ray interpreted by wa at 2026 reveals scarring as well as peripheral right upper lobe infiltrate. Cardiac silhouette size normal. Perihilar regions unremarkable. Osseous structures are unremarkable.) Diagnostic Testing: Clinical Impression(s) from Imaging Studies Chest X-Ray 06/21/21 19:54 IMPRESSION: Findings which may be consistent with Covid 19 pneumonia most pronounced in the right upper lobe Electronically Signed: Ammon Gray MD at 20:59 EST , Service support , Treatment and Re-Evaluation Comments:: Desaturated during her ER course at rest. She would be a candidate for IV remdesivir since her symptoms started 9 days ago Discharge Plan Triage Chief Complaint: Shortness of Breath ED Provider: Hakan Robbins Dx/Rx/DC Orders Clinical Impression: Pneumonia due to 2019-nCoV, Hypoxia, YADIRA (acute kidney injury), Acute hypokalemia Prescriptions: No Action loratadine [Claritin] 10 mg tablet 10 mg PO DAILY PRN (Reason: Allergies) RF: 0 fluticasone furoate-vilanterol 1 EACH blister with device 1 puff inhalation DAILY RF: 0 mirtazapine 15 tablet 15 mg PO QHS RF: 0 albuterol sulfate 18 GM HFA aerosol inhaler 2 puff IH Q4H PRN (Reason: Sob &/Or Wheezing) RF: 0 hydroxyzine HCl 50 MG tablet 50 mg PO BID RF: 0 dicyclomine 10 MG capsule 10 mg PO ACHS RF: 0 pantoprazole 40 MG tablet 40 mg PO BID RF: 0 amlodipine 10 MG tablet 5 mg PO DAILY RF: 0 duloxetine 20 MG capsule,delayed release(DR/EC) 20 mg PO DAILY RF: 0 sucralfate 1 gram tablet 1 g PO ACHS RF: 0 trazodone 50 mg Tablet 25 - 50 mg PO TID PRN PRN (Reason: Anxiety) RF: 0 doxepin 10 mg Capsule 10 mg PO TID PRN PRN (Reason: Anxiety) RF: 0 gabapentin 100 mg Capsule 200 mg PO QHS RF: 0 gabapentin 100 mg Capsule 100 mg PO DAILY RF: 0 prednisone 20 mg Tablet 40 mg PO DAILY@0800 Qty: 10 RF: 0 Primary Care Provider: Kellie Delarosa Referrals: Kellie Delarosa DO [Primary Care Provider] - Disposition Disposition: Acute Care Hospital [facility]
[2021-06-21] MEDS: Albuterol 2.5 MG/3 ML VIAL.NEB. INHALATION ×2 (20:01)
[2021-06-21] MEDS: Ipratropium/Albuterol Sulfate 3 ML AMPUL.NEB INHALATION (20:01)
[2021-06-21 20:16] LABS: Hematocrit 29.1 % (37-47); Hemoglobin 9.4 g/dL (12.0-15.0); Mean Corp Hgb Conc 32.3 g/dL (32-36); Mean Corpuscular Hgb 27.2 pg (27.0-32.0); Mean Corpuscular Volume 84.3 fL (81-99); Mean Platelet Vol. 9.9 fl (6.2-12.0); POSITIVE MORPHOLOGY YES; Platelet Count 355 K/mm3 (150-450); RBC Distribution Width CV 15.2 % (11.6-14.6); RBC Distribution Width SD 46.5 fl (35.1-43.9); Red Blood Count 3.45 M/mm3 (4.2-5.4); White Blood Count 13.5 K/mm3 (4.4-11.0)
[2021-06-21] MEDS: dexAMETHasone 10 MG/ML Vial IV (20:20)
[2021-06-21 20:51] LABS: Scan Smear per Review Criteria MANUAL DIFF
[2021-06-21 20:52] LABS: Differential Indicated MANUAL DIFF
[2021-06-21 20:56] LABS: Anion Gap 11 (5-15); BUN 51 mg/dL (7-18); BUN/Creat Ratio 25.2 RATIO (10-20); Calcium,Total 9.5 mg/dL (8.5-10.1); Chloride 100 mmol/L (98-107); Creatinine, Serum 2.02 mg/dL (0.55-1.02); EST Glomerular Filtration Rate 27 mL/min (>60); Est Glom Filt Rate - Afr Amer 32 mL/min (>60); Estimated Creatinine Clearance 24.91 ml/min; Glucose 110 mg/dL (74-106); Potassium 2.6 mmol/L (3.5-5.1); Sodium Level 137 mmol/L (136-145)
[2021-06-21 20:57] LABS: Eosinophil 2 % (0-5); Lymphocyte 21 % (19-41); Metamyelocyte 2 % (0-1); Myelocyte 1 % (0-0); Neutrophil-Band 2 % (0-5); Neutrophil-Segmented 72 % (47-70); Total Cells Counted 100 (MANUAL DIFF)
[2021-06-21 20:58] LABS: Platelet Estimate ADEQUATE (ADEQ); Reactive Lymphocyte 1+; Red Cell Morphology NORM C+C NORMAL (NORM C&C)
[2021-06-21 21:02] LABS: Absolute Lymphocyte Count 2.84 X10^3/uL (0.83-4.51)
--- NOTE | 2021-06-21 21:03 | ED.RN ---
K OF 2.[address] GUERRERO. VERBALIZES UNDERSTANDING
[2021-06-21] MEDS: Potassium Chloride Oral Soln 20 MEQ/15 ML UDC 40 MEQ PO (21:46)
[2021-06-21] MEDS: 0.9% Normal Saline 1,000 ML 1000 ML IV (21:47)
[2021-06-22 00:14] VITALS: O2SAT 88
[2021-06-22 00:32] VITALS: O2SAT 95
--- NOTE | 2021-06-22 01:05 | ED.RN ---
THIS RN SPOKE WITH JILLIAN AT THE [facility]. SHE STATES THE NURSE WILL FAX THE POSITIVE COVID RESULTS DIRECTLY TO [facility] IN THE MORNING. THE REST OF THE RECORD WAS SENT TO [facility]
[2021-06-22 13:28] LABS: Pathologist Review Reviewed
--- NOTE | 2021-06-22 18:59 | CASEMGMT ---
RN PATRICIO ED COVID Home O2 Follow-up: This RN PATRICIO attempted to contact pt via phone. Identifying voicemail received and message left requesting a return call if questions or concerns. Manuel Gardner RN CM
--- NOTE | 2021-06-24 16:59 | CASEMGMT ---
RN PATRICIO ED COVID Home O2 Follow-up: This RN CM attempted to contact pt via phone for follow-up. Identifying voicemail message received and message left requesting a return call if pt has any questions or concerns. Manuel Gardner RN CM
--- NOTE | 2021-06-25 14:59 | CASEMGMT ---
SURINDER CURRY ED COVID Home O2 Follow-up: SURINDER CURRY attempted to complete follow-up phone call. No answer, voice message left with return contact information.
== END 2021-06-22 00:33 | disposition home or self-care (01) ==
LOC: ED 21:09 → PCU 23:32
PROVIDERS: Emergency Provider Emergency Medicine; PCP Family Medicine
DX: U07.1 COVID-19 (principal); J12.82 Pneumonia due to coronavirus disease 2019; R09.02 Hypoxemia; N17.9 Acute kidney failure, unspecified; E87.6 Hypokalemia; F17.210 Nicotine dependence, cigarettes, uncomplicated; K21.9 Gastro-esophageal reflux disease without esophagitis; J44.9 Chronic obstructive pulmonary disease, unspecified; I25.10 Atherosclerotic heart disease of native coronary artery without angina pectoris; F41.9 Anxiety disorder, unspecified; Z79.899 Other long term (current) drug therapy
CPT/HCPCS: 71045; 80048; 85025; 94640; 96374; 99285; J7030; A4216

== ENCOUNTER 2022-05-02 18:59 | Emergency (ER) | payer MEDICAID, SELFPAY ==
[2022-05-02 19:00] VITALS: PULSE 136; RESP 23; TEMP 37.1; O2SAT 95; BMI 18.0
--- NOTE | 2022-05-02 19:01 | EKG12_ITS ---
Test Reason : PAREKH Blood Pressure : / mmHG Vent. Rate : 128 BPM Atrial Rate : 128 BPM P-R Int : 128 ms QRS Dur : 066 ms QT Int : 388 ms P-R-T Axes : 057 087 083 degrees QTc Int : 566 ms Sinus tachycardia with occasional Premature ventricular complexes Nonspecific ST and T wave abnormality Abnormal ECG Confirmed by PATRICE NARVAEZ, IVETT ([id number]), film editor MARLYN NAVARRO ([id number]) on 05/04/2022 10:56:33 AM Referred By: Confirmed By:IVETT IBRAHIM MD
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
[2022-05-02 19:20] VITALS: PULSE 134; RESP 22
[2022-05-02] MEDS: 0.9% Normal Saline 1,000 ML 150 ML IV (19:22)
[2022-05-02] MEDS: Diphth,Pertuss(Acell),Tet Vac 0.5 ML Vial IM (19:22)
[2022-05-02] MEDS: Racepinephrine HCl 0.5 ML VIAL.NEB. INHALATION (19:22)
--- NOTE | 2022-05-02 19:25 | RAD_ITS ---
INDICATION: Shortness of breath, EXAMINATION/TECHNIQUE: X-RAY - XR Chest 1 View COMPARISON: 04/21/2021 FINDINGS: LIFE-SUPPORT AND LINES: 1. None HEART AND VESSELS: The cardiac silhouette, pulmonary vasculature have normal appearance. No evidence of congestive failure. LUNGS AND PLEURAL SPACES: Mild basilar atelectasis, greater on the RIGHT than LEFT, without consolidation or effusion. There has been resolution of previous area of infiltrate in the RIGHT midlung. No pulmonary mass is noted. MEDIASTINUM AND HILAR REGIONS: No masses adenopathy noted. No areas of calcification. Visualized upper airway is normal in position. BONY ELEMENTS: Chronic deformity of multiple RIGHT ribs, no acute bony changes noted. RAD/Chest 1 View (Portable) IMPRESSION: 1. Mild basilar atelectasis greater on the RIGHT than LEFT. No consolidation, no effusion. 2. No congestive failure. Electronically Signed: Irineo Casillas MD at 19:51 EDT ,
[2022-05-02 19:34] LABS: Absolute Lymphocyte Count 1.09 X10^3/uL (0.83-4.51); Absolute Neutrophil Count 8.6 X10^3/uL (2.0-7.7); Basophil# 0.01 X10^3/uL; Basophil% 0.1 % (0-1); Hematocrit 33.9 % (37-47); Hemoglobin 11.1 g/dL (12.0-15.0); Lymphocyte # 1.09 X10^3/ul (0.83-4.51); Lymphocyte % 10.5 % (19-41); Mean Corp Hgb Conc 32.7 g/dL (32-36); Mean Corpuscular Hgb 29.9 pg (27.0-32.0); Mean Corpuscular Volume 91.4 fL (81-99); Mean Platelet Vol. 9.7 fl (6.2-12.0); Monocyte# 0.59 X10^3/uL; Monocyte% 5.7 % (0-10); NRBC Flagged by Analyzer 0 % (0-5); Neutrophil # 8.61 X10^3/uL (2.7-7.7); Neutrophil % 82.5 % (47-70); Platelet Count 122 K/mm3 (150-450); RBC Distribution Width CV 17.5 % (11.6-14.6); Red Blood Count 3.71 M/mm3 (4.2-5.4); White Blood Count 10.4 K/mm3 (4.4-11.0)
[2022-05-02] MEDS: Morphine 4 MG/ML Syringe IV (19:40)
[2022-05-02 19:48] LABS: Anion Gap 18 (5-15); BUN 19 mg/dL (7-18); BUN/Creat Ratio 17.8 RATIO (10-20); Calcium,Total 8.3 mg/dL (8.5-10.1); Chloride 98 mmol/L (98-107); Creatinine, Serum 1.07 mg/dL (0.55-1.02); EST Glomerular Filtration Rate 56 mL/min (>60); Est Glom Filt Rate - Afr Amer 67 mL/min (>60); Estimated Creatinine Clearance 42.01 ml/min; Glucose 87 mg/dL (74-106); Potassium 3.9 mmol/L (3.5-5.1); Sodium Level 138 mmol/L (136-145)
[2022-05-02 19:59] VITALS: BP 136/87; PULSE 112; RESP 28; O2SAT 95
[2022-05-02 21:31] LABS: Allen Test Positive; Base Excess -2 mmol/L (-2 to +2); Bicarbonate 21.7 mmol/L (22-26); Blood Gas Specimen Type ART; O2 Delivery Device Room Air; PO2 72 mmHG (75-100); SITE R Radial; SO2 96 % (95-99); Total Carbon Dioxide 23 mmol/L; pCO2 29.1 mmHg (35-45); pH 7.48 (7.35-7.45)
[2022-05-02] MEDS: HYDROmorphone 0.5 MG/0.5 ML SYRINGE IV (21:34)
[2022-05-02 21:39] VITALS: BP 151/100; PULSE 120; RESP 20; O2SAT 95
== END 2022-05-02 21:42 | disposition short-term general hospital (02) ==
PROVIDERS: Emergency Provider Emergency Medicine; PCP Family Medicine; Visit Provider Emergency Medicine
DX: T20.25XA Burn of second degree of scalp [any part], initial encounter (principal); J44.9 Chronic obstructive pulmonary disease, unspecified; T20.27XA Burn of second degree of neck, initial encounter; T22.251A Burn of second degree of right shoulder, initial encounter; R06.1 Stridor; I25.10 Atherosclerotic heart disease of native coronary artery without angina pectoris; F17.210 Nicotine dependence, cigarettes, uncomplicated; Z23 Encounter for immunization; X58.XXXA Exposure to other specified factors, initial encounter
CPT/HCPCS: 36600; 71045; 80048; 82803; 85025; 87811; 90715; 93005; 94640; 96372; 96374; 96375; 99285